=== PATIENT | female | born 1935 | race Caucasian/White ===

== ENCOUNTER 2017-10-18 16:03 | Inpatient (IN) | payer OTHER, MEDICARE ==
--- NOTE | 2017-10-18 16:07 | PDOC ---
Rapid Medical Evaluation Time Seen by Provider: 10/18/17 16:06 Medical Evaluation: 10/18/17 16:06 I have performed a brief in-person evaluation of this patient. The patient presents with a chief complaint of: rectal bleeding x "months", sent by Dr. Gao, "i had bleeding hemorrhoids, but now he thinks it's something" , denies any SOB, palpitations Pertinent physical exam findings: NA I have ordered the following: labs, ekg The patient will proceed to the ED for further evaluation. Discharge Disposition - Diagnosis Rectal bleeding - Referrals - Patient Instructions - Post Discharge Activity
[2017-10-18 16:25] VITALS: BMI 26.3
[2017-10-18 17:01] LABS: BASO % 0.9 % (0-2.0); EOS % 0.1 % (0-4.5); HEMATOCRIT 38.3 % (32.4-45.2); HEMOGLOBIN 13.5 GM/dL (10.7-15.3); LYMPH % 12.2 % (8-40); MCH 33.4 pg (25.7-33.7); MCHC 35.1 g/dl (32.0-36.0); MEAN CELL VOLUME 95.1 fl (80-96); MEAN PLT VOLUME 10.7 fl (7.5-11.1); MONO % 7.7 % (3.8-10.2); NEUT % 79.1 % (42.8-82.8); PLATELET COUNT 199 K/MM3 (134-434); RBC 4.03 M/mm3 (3.60-5.2); RDW 13.3 % (11.6-15.6); WHITE BLOOD COUNT 7.3 K/mm3 (4.0-10.0)
[2017-10-18] MEDS ORDERED: SODIUM CHLORIDE 1,000 ML IV STA (17:20)
[2017-10-18 17:27] LABS: ALBUMIN 3.6 g/dl (3.4-5.0); ANION GAP 8 (8-16); BLOOD UREA NITROGEN 23 mg/dL (7-18); CALCIUM 8.9 mg/dL (8.5-10.1); CHLORIDE 105 mmol/L (98-107); CO2 24 mmol/L (21-32); CREATININE 0.9 mg/dL (0.55-1.02); GLUCOSE,RANDOM 98 mg/dL (74-106); POTASSIUM 3.9 mmol/L (3.5-5.1); SGOT/AST 22 U/L (15-37); SGPT/ALT 16 U/L (12-78); SODIUM 137 mmol/L (136-145)
[2017-10-18 17:31] LABS: ALK PHOS 66 U/L (45-117); BILIRUBIN,TOTAL 0.4 mg/dL (0.2-1.0); TOT PROT 7.3 g/dl (6.4-8.2)
[2017-10-18 17:42] LABS: INR 1.05 (0.82-1.09); PROTHROMBIN TIME (PATIENT) 11.9 SEC (9.98-11.88)
--- NOTE | 2017-10-18 18:18 | PDOC ---
History of Present Illness - History of Present Illness Initial Comments: 10/18/17 18:26 The patient is a 82 year old female, with a significant PMH of hypertension, anxiety, who presents to the emergency department with progressively worsening vaginal bleeding, hematuria, blood per stool for 2 days. The patient states she had been having the bleeding intermittently for 3 months but her symptoms have been constant in the past couple of days. The patient states she has been seen by an outpatient mobile home servicer and GI Dr. Whitmore. However, she states the doctors are unsure of the source of the bleeding. The patient states she had a colonoscopy [address] Carballo where she had a large polyp removed. The patient states she had an appointment with Dr Colby richardson today who advised the patient come to the ED secondary to her symptoms. The patient denies chest pain, shortness of breath, headache and dizziness. Denies fever, chills, nausea, vomit, diarrhea and constipation. Denies dysuria, frequency, urgency. Allergies: Sulfur Past surgical history: Partial hysterectomy. Social history: No reported PCP: Pt. does not have a PMD. <Tanvir Hansen - Last Filed: 10/18/17 18:26> - General History Source: Patient Exam Limitations: No Limitations <Tom Lawson - Last Filed: 10/18/17 18:58> - General Chief Complaint: Rectal Bleed Stated Complaint: WEAKNESS (PCP SENT) Time Seen by Provider: 10/18/17 16:06 Past History <Tanvir Hansen - Last Filed: 10/18/17 18:26> - Past Medical History COPD: No HTN: Yes - Suicide/Smoking/Psychosocial Hx Smoking History: Never smoked Information on smoking cessation initiated: No Hx Alcohol Use: No Drug/Substance Use Hx: No Substance Use Type: None <Tom Lawson - Last Filed: 10/18/17 18:58> - Past Medical History Allergies/Adverse Reactions: Allergies Allergy/AdvReac Type Severity Reaction Status Date / Time Sulfa (Sulfonamide Allergy Verified 10/18/17 16:07 Antibiotics) Home Medications: Ambulatory Orders Alprazolam [Xanax] 0.25 mg PO ONCE PRN 10/18/17 Lisinopril 5 mg PO DAILY 10/18/17 Review of Systems - Review of Systems Comments:: 10/18/17 18:26 GENERAL/CONSTITUTIONAL: No fever or chills. No weakness. HEAD, EYES, EARS, NOSE AND THROAT: No change in vision. No ear pain or discharge. No sore throat. CARDIOVASCULAR: No chest pain or shortness of breath. RESPIRATORY: No cough, wheezing, or hemoptysis. GASTROINTESTINAL: +Blood per rectum. +Hematuria. No nausea, vomiting, diarrhea or constipation. GENITOURINARY: +Vaginal bleeding. No dysuria, frequency, or change in urination. MUSCULOSKELETAL: No joint or muscle swelling or pain. No neck or back pain. SKIN: No rash NEUROLOGIC: No headache, vertigo, loss of consciousness, or change in strength/ sensation. ENDOCRINE: No increased thirst. No abnormal weight change. HEMATOLOGIC/LYMPHATIC: No anemia, easy bleeding, or history of blood clots. ALLERGIC/IMMUNOLOGIC: No hives or skin allergy. <Tanvir Hansen - Last Filed: 10/18/17 18:26> *Physical Exam - Vital Signs Last Vital Signs Temp Pulse Resp BP Pulse Ox 97.4 F L 68 18 103/76 98 10/18/17 16:07 10/18/17 17:43 10/18/17 16:07 10/18/17 16:07 10/18/17 17:43 - Physical Exam Comments: 10/18/17 18:27 GENERAL: Awake, alert, and fully oriented, in no acute distress HEAD: No signs of trauma EYES: PERRLA, EOMI, sclera anicteric, conjunctiva clear ENT: Auricles normal inspection, hearing grossly normal, nares patent. Moist mucosa NECK: Normal ROM, supple. LUNGS: Breath sounds equal, clear to auscultation bilaterally. No wheezes, and no crackles HEART: Regular rate and rhythm, normal S1 and S2, no murmurs, rubs or gallops ABDOMEN: Soft, nontender. No guarding, no rebound. No masses SENIOR COMMUNICATIONS SPECIALIST: +Blood around vagina. RECTAL: +Blood on glove. No hemorrhoids. EXTREMITIES: Normal range of motion, no edema. No clubbing or cyanosis. No cords, erythema, or tenderness NEUROLOGICAL: Cranial nerves II through XII intact. Normal speech, normal gait SKIN: Warm, Dry, normal turgor, no rashes or lesions noted. <Tanvir Hansen - Last Filed: 10/18/17 18:26> - Vital Signs Last Vital Signs Temp Pulse Resp BP Pulse Ox 97.4 F L 68 18 103/76 98 10/18/17 16:07 10/18/17 17:43 10/18/17 16:07 10/18/17 16:07 10/18/17 17:43 <Tom Lawson - Last Filed: 10/18/17 18:58> Heart Score/ECG Review #1 ECG reviewed & interpreted by me at: 18:35 10/18/17 18:56 NSR 81 with 1st degree AV block, no std/judy, QTC 455 msec <Tom Lawson - Last Filed: 10/18/17 18:58> ED Treatment Course - LABORATORY CBC & Chemistry Diagram: 10/18/17 16:35 10/18/17 16:35 - ADDITIONAL ORDERS Additional order review: Laboratory Results 10/18/17 10/18/17 16:35 16:07 Sodium 137 Potassium 3.9 Chloride 105 Carbon Dioxide 24 Anion Gap 8 BUN 23 H Creatinine 0.9 Creat Clearance w eGFR > 60 Random Glucose 98 Calcium 8.9 Total Bilirubin 0.4 AST 22 ALT 16 Alkaline Phosphatase 66 Creatine Kinase 85 Troponin I 0.02 Total Protein 7.3 Albumin 3.6 Stool Occult Blood Positive 10/18/17 16:35 RBC 4.03 MCV 95.1 MCHC 35.1 RDW 13.3 MPV 10.7 Neutrophils % 79.1 Lymphocytes % 12.2 Monocytes % 7.7 Eosinophils % 0.1 Basophils % 0.9 - Medications Given in the ED: ED Medications Discontinued Medications Generic Name Dose Route Start Last Admin Trade Name Freq PRN Reason Stop Dose Admin Sodium Chloride 1,000 mls @ 1,000 mls/hr 10/18/17 17:20 10/18/17 17:28 Normal Saline - IV 10/18/17 18:19 1,000 mls/hr ASDIR STA Administration <Tanvir Hansen - Last Filed: 10/18/17 18:26> - LABORATORY CBC & Chemistry Diagram: 10/18/17 16:35 10/18/17 16:35 - ADDITIONAL ORDERS Additional order review: Laboratory Results 10/18/17 10/18/17 16:35 16:07 Sodium 137 Potassium 3.9 Chloride 105 Carbon Dioxide 24 Anion Gap 8 BUN 23 H Creatinine 0.9 Creat Clearance w eGFR > 60 Random Glucose 98 Calcium 8.9 Total Bilirubin 0.4 AST 22 ALT 16 Alkaline Phosphatase 66 Creatine Kinase 85 Troponin I 0.02 Total Protein 7.3 Albumin 3.6 Stool Occult Blood Positive 10/18/17 16:35 RBC 4.03 MCV 95.1 MCHC 35.1 RDW 13.3 MPV 10.7 Neutrophils % 79.1 Lymphocytes % 12.2 Monocytes % 7.7 Eosinophils % 0.1 Basophils % 0.9 - RADIOLOGY Radiology Studies Ordered: Category Date Time Status ABDOMEN & PELVIS CT WITH CONTR [CT] Stat CT Scan 10/18/17 17:19 Ordered CHEST X-RAY PORTABLE* [RAD] Stat Radiology 10/18/17 17:19 Ordered PELVIC / BLADDER US [US] Stat Ultrasound 10/18/17 17:19 Ordered <Tom Lawson - Last Filed: 10/18/17 18:58> Medical Decision Making - Medical Decision Making 10/18/17 18:11 A portion of this note was documented by scribe services under my direction. I have reviewed the details of the note, within reason, and agree with the documentation with the following case summary and management plan written by me. Patient treated in the ED. Nursing notes are reviewed and incorporated into the medical decision-making. Vital signs reviewed. Peripheral IV access obtained by the nurse, laboratory studies are drawn and sent, reviewed and interpreted by myself. Vital Signs Temp Pulse Resp BP Pulse Ox 97.4 F L 68 18 103/76 98 10/18/17 16:07 10/18/17 17:43 10/18/17 16:07 10/18/17 16:07 10/18/17 17:43 82-year-old female with past medical history of hypertension, anxiety presents with GI bleeding. The patient has had several months of hematuria, blood per stool and vaginal bleeding. It was initially intermittent but in the last several days has been constant. Patient denies any pain with this. Denies fevers or chills or weight loss. No nausea or vomiting. The patient was seen by an outpatient mobile home servicer as well as a activities concierge Dr. Carballo. According to the patient, she reports that both are unclear what the etiology is. Patient received a colonoscopy several weeks ago which several polyps were removed. However, the patient continued to have blood in her stool in the toilet bowl. Patient ultimately had a first-time appointment with general surgeon Dr. Kuldeep Go with directed patient to the ER. It is unclear if the bleeding is primarily urine, vaginal or GI. The patient certainly has javier blood per rectum (but not hemorraging out). But also has questionable vaginal bleeding. The patient has seen several outpatient visits but unclear what this is. Could this be internal hemorrhoids? Or bleedig diverticulosis or cancer? Is this uterine/cervical dysplasia/cancer or hemorrhagic cystitis? Either way, the patient will require an extensive workup including pelvic ultrasound and CT scan of abdomen and pelvis. Given worsening bleeding, pt should be considered for potential admission as well. Dispo per workup. 10/18/17 18:58 CBC, BMP 10/18/17 16:35 10/18/17 16:35 CMP Sodium 137 mmol/L (136-145) 10/18/17 16:35 Potassium 3.9 mmol/L (3.5-5.1) 10/18/17 16:35 Chloride 105 mmol/L (98-107) 10/18/17 16:35 Carbon Dioxide 24 mmol/L (21-32) 10/18/17 16:35 Anion Gap 8 (8-16) 10/18/17 16:35 BUN 23 mg/dL (7-18) H 10/18/17 16:35 Creatinine 0.9 mg/dL (0.55-1.02) 10/18/17 16:35 Creat Clearance w eGFR > 60 (>60) 10/18/17 16:35 Random Glucose 98 mg/dL (74-106) 10/18/17 16:35 Calcium 8.9 mg/dL (8.5-10.1) 10/18/17 16:35 Total Bilirubin 0.4 mg/dL (0.2-1.0) 10/18/17 16:35 AST 22 U/L (15-37) 10/18/17 16:35 ALT 16 U/L (12-78) 10/18/17 16:35 Alkaline Phosphatase 66 U/L (45-117) 10/18/17 16:35 LD Total 240 U/L (84-246) 10/18/17 17:26 Creatine Kinase 85 IU/L (26-192) 10/18/17 16:35 Troponin I 0.02 ng/ml (0.00-0.05) 10/18/17 16:35 Total Protein 7.3 g/dl (6.4-8.2) 10/18/17 16:35 Albumin 3.6 g/dl (3.4-5.0) 10/18/17 16:[address] scan and ultrasound pending. Case signed out to Dr. Paul for further management and disposition. <Tom Lawson - Last Filed: 10/18/17 18:58> *DC/Admit/Observation/Transfer - Attestations Scribe Attestion: 10/18/17 18:29 Documentation prepared by Tanvir Hansen, acting as medical practitioners for Tom Lawson MD. <Tanvir Hansen - Last Filed: 10/18/17 18:26> <Tom Lawson - Last Filed: 10/18/17 18:58> Diagnosis at time of Disposition: Rectal bleeding - Referrals Referrals: Nabil Carballo MD [Primary Care Provider] - - Patient Instructions - Post Discharge Activity
[2017-10-18 18:57] LABS: URINE APPEARANCE SLCLOUDY; URINE BILIRUBIN NEGATIVE (<2.0 mg/dL); URINE COLOR RED; URINE GLUCOSE (UA) NEGATIVE (NEGATIVE); URINE KETONE NEGATIVE (NEGATIVE); URINE NITRITE NEGATIVE (NEGATIVE); URINE UROBILINOGEN NEGATIVE mg/dL (0.2-1.0)
[2017-10-18 19:09] LABS: URINE LEUK ESTERASE 2+ (NEGATIVE); URINE PROTEIN 2+ (NEGATIVE)
[2017-10-18 19:21] LABS: URINE BACTERIA RARE /hpf (NONE SEEN)
--- NOTE | 2017-10-18 21:34 | PDOC ---
*Physical Exam - Vital Signs Last Vital Signs Temp Pulse Resp BP Pulse Ox 97.4 F L 68 18 103/76 98 10/18/17 16:07 10/18/17 17:43 10/18/17 16:07 10/18/17 16:07 10/18/17 17:43 ED Treatment Course - LABORATORY CBC & Chemistry Diagram: 10/18/17 16:35 10/18/17 16:35 - ADDITIONAL ORDERS Additional order review: Laboratory Results 10/18/17 10/18/17 10/18/17 18:44 17:26 17:26 PT with INR INR PTT (Actin FS) Fibrinogen 411.0 Sodium Potassium Chloride Carbon Dioxide Anion Gap BUN Creatinine Creat Clearance w eGFR Random Glucose Calcium Total Bilirubin AST ALT Alkaline Phosphatase LD Total 240 Creatine Kinase Troponin I Total Protein Albumin Urine Color Red Urine Appearance Slcloudy Urine pH 7.0 Ur Specific [place] 1.008 Urine Protein 2+ H Urine Glucose (UA) Negative Urine Ketones Negative Urine Blood 3+ H Urine Nitrite Negative Urine Bilirubin Negative Urine Urobilinogen Negative Ur Leukocyte Esterase 2+ H Urine WBC (Auto) 1595 Urine RBC (Auto) 1005 Urine Bacteria Rare Stool Occult Blood Blood Type Antibody Screen 10/18/17 10/18/17 10/18/17 16:35 16:35 16:35 PT with INR INR PTT (Actin FS) 29.8 Fibrinogen Sodium 137 Potassium 3.9 Chloride 105 Carbon Dioxide 24 Anion Gap 8 BUN 23 H Creatinine 0.9 Creat Clearance w eGFR > 60 Random Glucose 98 Calcium 8.9 Total Bilirubin 0.4 AST 22 ALT 16 Alkaline Phosphatase 66 LD Total Creatine Kinase 85 Troponin I 0.02 Total Protein 7.3 Albumin 3.6 Urine Color Urine Appearance Urine pH Ur Specific [place] Urine Protein Urine Glucose (UA) Urine Ketones Urine Blood Urine Nitrite Urine Bilirubin Urine Urobilinogen Ur Leukocyte Esterase Urine WBC (Auto) Urine RBC (Auto) Urine Bacteria Stool Occult Blood Blood Type O POSITIVE Antibody Screen Negative 10/18/17 10/18/17 16:35 16:07 PT with INR 11.90 H INR 1.05 PTT (Actin FS) Fibrinogen Sodium Potassium Chloride Carbon Dioxide Anion Gap BUN Creatinine Creat Clearance w eGFR Random Glucose Calcium Total Bilirubin AST ALT Alkaline Phosphatase LD Total Creatine Kinase Troponin I Total Protein Albumin Urine Color Urine Appearance Urine pH Ur Specific [place] Urine Protein Urine Glucose (UA) Urine Ketones Urine Blood Urine Nitrite Urine Bilirubin Urine Urobilinogen Ur Leukocyte Esterase Urine WBC (Auto) Urine RBC (Auto) Urine Bacteria Stool Occult Blood Positive Blood Type Antibody Screen 10/18/17 16:35 RBC 4.03 MCV 95.1 MCHC 35.1 RDW 13.3 MPV 10.7 Neutrophils % 79.1 Lymphocytes % 12.2 Monocytes % 7.7 Eosinophils % 0.1 Basophils % 0.9 - Medications Given in the ED: ED Medications Discontinued Medications Generic Name Dose Route Start Last Admin Trade Name Aliyah PRN Reason Stop Dose Admin Sodium Chloride 1,000 mls @ 1,000 mls/hr 10/18/17 17:20 10/18/17 17:28 Normal Saline - IV 10/18/17 18:19 1,000 mls/hr ASDIR STA Administration Medical Decision Making - Medical Decision Making 10/18/17 21:33 This is an 82-year-old female centimeter presently 7 PM. She is pending CT, ultrasound for evaluation of hematuria, rectal bleeding, vaginal bleeding. Plan is for admission. Ultrasound demonstrates: 3.5 cm unilocular right adnexal cyst. CT of the abdomen and pelvis demonstrate: Cholelithiasis, liver, spleen, pancreas, adrenals are normal. Minimal to mild dilatation of the renal collecting system bilaterally, no aneurysm, sigmoid diverticulosis without diverticulitis. Reviewed with hospitalist. Limited their service. Repeat vitals: Heart rate 87 Blood pressure 124/87 Clinical impression: Hematuria, rectal bleeding, initial presentation *DC/Admit/Observation/Transfer Diagnosis at time of Disposition: Rectal bleeding - Discharge Dispostion Condition at time of disposition: Stable Admit: Yes - Referrals Referrals: Nabil Carballo MD [Primary Care Provider] - - Patient Instructions - Post Discharge Activity
--- NOTE | 2017-10-18 22:07 | PN ---
Teaching Attending Note Name of Resident: Phillip Rodríguez ATTENDING PHYSICIAN STATEMENT I saw and evaluated the patient. Chart, data, imaging reviewed. I reviewed the resident's note and discussed the case with the resident. I agree with the resident's findings and plan as documented. SUBJECTIVE: #82yo pleasant woman with diverticulosis, hemorrhoids, and recent polypectomy [address] Carballo, comes in complaining of worsening BRBPR for the past several days. She has had this bleeding for at least 10 months. Denied any peptic ulcer disease, or dyspepsia. She does admit to using advil PM regularly for the past year. SHe was recently seen by OBGYN and deemed to not have Airfield Manager - source of bleeding. Patient seen by surgeon - Dr. Bowman, and encouraged to come to ER. She denied LOC, nausea, or vomiting. No burning with urination, however has seen some blood in urine which may have been mixed in from stool. OBJECTIVE: Temp Pulse Resp BP Pulse Ox 97.4 F L 79 18 151/69 98 10/18/17 16:07 10/18/17 22:40 10/18/17 22:40 10/18/17 22:40 10/18/17 22:40 general- nad, pleasant heent - at , nc neck -supple cv - s1+s2+ RRR chest - cta b/l abdomen -soft, nt, vertical scar s/p hysterectomy ext- no pedal edema Bright red blood from rectum Abnormal Lab Results 10/18/17 10/18/17 10/18/17 16:35 16:35 18:44 PT with INR 11.90 H BUN 23 H Urine Protein 2+ H Urine Blood 3+ H Ur Leukocyte Esterase 2+ H FOBT -positive EKG-nsr Ultrasound demonstrates: 3.5 cm unilocular right adnexal cyst. CT of the abdomen and pelvis demonstrate: Cholelithiasis, liver, spleen, pancreas, adrenals are normal. Minimal to mild dilatation of the renal collecting system bilaterally, no aneurysm, sigmoid diverticulosis without diverticulitis. ASSESSMENT AND PLAN: #82yo woman with GI bleed- may be upper GI as she has been taking NSAIDs - advil , has high BUN although she has no symptoms. May be lower GI from diverticulosis or complication from recent polyectomy. She is otherwise hemodynamically stable, initial tachycardia at presentation has normalized. H,H are stable. Will admit ICU pending GI evaluation. -admit to ICU -protonix drip -IV fluid hydration -trend cbc q 6hrs -avoid NSAIDS and heparin -NPO -zofran PRN if nausea or vomiting -GI consult for EGD/colonoscopy -Urology consult to r/o possible urinary source of bleed -ICDs for DVT ppx
[2017-10-18] MEDS ORDERED: SODIUM CHLORIDE 1,000 ML IV SCH (22:15)
--- NOTE | 2017-10-18 22:20 | HP ---
CHIEF COMPLAINT: active gi bleed PCP: HISTORY OF PRESENT ILLNESS: 82 y/o female with PMH of constipation was sent in by surgeon for GI bleed, haematuria. Patient states that she has Bleeding per rectum from 10 months which was intermittent. She got colonoscopy done 3 weeks ago and polypectomy was done, after that she started bleeding every day, painless, bleeds every time she has bowel movement, changes many pads in a day. Denies loss of weight, change in appetite. Denies pain on defecation, denies epigastric pain, dyspepesia or pain on eating food. Denies pain in abdomen. Denies h/o bleeding disorder or excessive bleeding on getting cuts. Patient also states that she has noticed a active blood coming in her urine ( unable to tell if its urine or blood from rectum getting mixed with urine.) Denies chest pi, palpitations, sob, lightheadidness. Patient also reports increase in frequency of micturation but no burning, no fever, no chills. Patient reports that she i staking aleve for last one year. Patient has also seen licensed practical nurse instructor in last week. As per patinet doctor told her she has no bleeding from vagina. CT angio: shows diverticulosis. ER course was notable for: (1)cbc, cmp, pt/inr (2)Iv fluid (3) Recent Travel: no PAST MEDICAL HISTORY: HTN, anxiety. PAST SURGICAL HISTORY:right knee replcement, ectopic , partial hystrectomy 11 yearrs ago. Social History: Smoking: no Alcohol:no Drugs: no Family History: no h/o cancer Allergies Sulfa (Sulfonamide Antibiotics) Allergy (Verified 10/18/17 16:07) HOME MEDICATIONS: Home Medications Medication Instructions Recorded Alprazolam [Xanax] 0.25 mg PO ONCE PRN 10/18/17 Lisinopril 5 mg PO DAILY 10/18/17 REVIEW OF SYSTEMS CONSTITUTIONAL: Absent: fever, chills, diaphoresis, generalized weakness, malaise, loss of appetite, weight change HEENT: Absent: rhinorrhea, nasal congestion, throat pain, throat swelling, difficulty swallowing, mouth swelling, ear pain, eye pain, visual changes CARDIOVASCULAR: Absent: chest pain, syncope, palpitations, irregular heart rate, lightheadedness , peripheral edema RESPIRATORY: Absent: cough, shortness of breath, hemoptysis GASTROINTESTINAL: as above GENITOURINARY: as above HEMATOLOGIC/IMMUNOLOGIC: Absent: easy bleeding, easy bruising, lymphadenopathy, frequent infections ENDOCRINE: Absent: unexplained weight gain, unexplained weight loss, heat intolerance, cold intolerance PSYCHIATRIC: Absent: depression, suicidal or homicidal ideation, hallucinations. PHYSICAL EXAMINATION Vital Signs - 24 hr 10/18/17 10/18/17 16:07 17:43 Temperature 97.4 F L Pulse Rate 122 H 68 Respiratory 18 Rate Blood Pressure 103/76 O2 Sat by Pulse 100 98 Oximetry (%) GENERAL: Awake, alert, and fully oriented, in no acute distress. HEAD: Normal with no signs of trauma. EYES: Pupils equal, round and reactive to light, extraocular movements intact, sclera anicteric, conjunctiva clear. No lid lag. EARS, NOSE, THROAT: Ears normal, nares patent, oropharynx clear without exudates. Moist mucous membranes. NECK: Normal range of motion, supple without lymphadenopathy, JVD, or masses. LUNGS: Breath sounds equal, clear to auscultation bilaterally. No wheezes, and no crackles. No accessory muscle use. HEART: s1s2 normalNo hepatomegaly or splenomegaly. MUSCULOSKELETAL: Normal range of motion at all joints. No bony deformities or tenderness. UPPER EXTREMITIES: 2+ pulses, warm, well-perfused. No cyanosis. No clubbing. No peripheral edema. LOWER EXTREMITIES:warm, well-perfused. No calf tenderness. No peripheral edema. NEUROLOGICAL: Cranial nerves II-XII intact. Normal speech. PSYCHIATRIC: Cooperative. Good eye contact. Appropriate mood and affect. SKIN: Warm, dry, Laboratory Results - last 24 hr 10/18/17 10/18/17 10/18/17 16:07 16:35 16:35 WBC RBC Hgb Hct MCV MCH MCHC RDW Plt Count MPV Neutrophils % Lymphocytes % Monocytes % Eosinophils % Basophils % PT with INR 11.90 H INR 1.05 PTT (Actin FS) Fibrinogen Sodium 137 Potassium 3.9 Chloride 105 Carbon Dioxide 24 Anion Gap 8 BUN 23 H Creatinine 0.9 Creat Clearance w eGFR > 60 Random Glucose 98 Calcium 8.9 Total Bilirubin 0.4 AST 22 ALT 16 Alkaline Phosphatase 66 LD Total Creatine Kinase 85 Troponin I 0.02 Total Protein 7.3 Albumin 3.6 Urine Color Urine Appearance Urine pH Ur Specific [place] Urine Protein Urine Glucose (UA) Urine Ketones Urine Blood Urine Nitrite Urine Bilirubin Urine Urobilinogen Ur Leukocyte Esterase Urine WBC (Auto) Urine RBC (Auto) Urine Bacteria Stool Occult Blood Positive Blood Type Antibody Screen 10/18/17 10/18/17 10/18/17 16:35 16:35 16:35 WBC 7.3 RBC 4.03 Hgb 13.5 Hct 38.3 MCV 95.1 MCH 33.4 MCHC 35.1 RDW 13.3 Plt Count 199 MPV 10.7 Neutrophils % 79.1 Lymphocytes % 12.2 Monocytes % 7.7 Eosinophils % 0.1 Basophils % 0.9 PT with INR INR PTT (Actin FS) 29.8 Fibrinogen Sodium Potassium Chloride Carbon Dioxide Anion Gap BUN Creatinine Creat Clearance w eGFR Random Glucose Calcium Total Bilirubin AST ALT Alkaline Phosphatase LD Total Creatine Kinase Troponin I Total Protein Albumin Urine Color Urine Appearance Urine pH Ur Specific [place] Urine Protein Urine Glucose (UA) Urine Ketones Urine Blood Urine Nitrite Urine Bilirubin Urine Urobilinogen Ur Leukocyte Esterase Urine WBC (Auto) Urine RBC (Auto) Urine Bacteria Stool Occult Blood Blood Type O POSITIVE Antibody Screen Negative 10/18/17 10/18/17 10/18/17 17:26 17:26 18:44 WBC RBC Hgb Hct MCV MCH MCHC RDW Plt Count MPV Neutrophils % Lymphocytes % Monocytes % Eosinophils % Basophils % PT with INR INR PTT (Actin FS) Fibrinogen 411.0 Sodium Potassium Chloride Carbon Dioxide Anion Gap BUN Creatinine Creat Clearance w eGFR Random Glucose Calcium Total Bilirubin AST ALT Alkaline Phosphatase LD Total 240 Creatine Kinase Troponin I Total Protein Albumin Urine Color Red Urine Appearance Slcloudy Urine pH 7.0 Ur Specific [place] 1.008 Urine Protein 2+ H Urine Glucose (UA) Negative Urine Ketones Negative Urine Blood 3+ H Urine Nitrite Negative Urine Bilirubin Negative Urine Urobilinogen Negative Ur Leukocyte Esterase 2+ H Urine WBC (Auto) 1595 Urine RBC (Auto) 1005 Urine Bacteria Rare Stool Occult Blood Blood Type Antibody Screen ASSESSMENT/PLAN: 82 y/o female with PMH of constipation came in with GI bleed. GI bleed: could be upper gi ( h/o aleve from one year, elevated bun) vs lower GI from diverticulosis, polypectomy site, angiodysplasia. cbc q6h Iv fluid npo protonix drip Gi consult colonscopy done 3week ago: get report from Dr craig office. CT angio; diverticulosis. Monitor vitals monitor intake/output ICU monitoring surgery consult type and screen two iv canula 18 number Haematuria: could be due to contamination of urine vs cystitis ( less likely) vs bladder growth( less likely) monitor monitor intake and output urology consult Right renal cyst: incidental finding, monitor, urology consult HTN: hold BP meds for now anxiety; home meds. fluid: ns 83 ml/hr electrolyte; repeat in am nutrition; npo dvt pro; pt ambulatory gi pro; protonix drip dispo; ICU Visit type - Emergency Visit Emergency Visit: Yes Care time: The patient presented to the Emergency Department on the above date and was hospitalized for further evaluation of their emergent condition. - New Patient This patient is new to me today: Yes Date on this admission: 10/18/17 - Critical Care Critical Care patient: Yes Total Critical Care Time (in minutes): 60 Critical Care Statement: The care of this patient involved high complexity decision making to prevent further life threatening deterioration of the patient 's condition and/or to evaluate & treat vital organ system(s) failure or risk of failure.
[2017-10-18] MEDS ORDERED: PANTOPRAZOLE SODIUM 40 MG VIAL ONE (22:49)
[2017-10-18] MEDS ORDERED: PANTOPRAZOLE SODIUM 80 MG in SODIUM CHLORIDE 100 ML IVPB SCH (23:00)
--- NOTE | 2017-10-18 23:06 | CONSULT ---
Consult - History of Present Illness History of Present Illness: This is an 82 yo woman with HTN with history GIB recently seen as OP(~3 weeks ago) for rectal bleeding and was found to have multiple polyps on C-scope s/p polypectomy. She cont to have continued daily bleeding and was seen by DIE MAKER APPRENTICE who did not find evidence of vaginal bleeding and was subsequently seen in surgical clinic by Dr. Bowman w/ BRBPR seen on exam and advised her to go to the ED for evaluation. In the ED she was noted to have continued BRBPR. Hgb 13.5, Plt: 199 , INR 1.09. Urine with +3 blood, +2 LE and 1595 wbcs but sample was felt to be contaminated by rectal bleeding. CTAP: Sigmoid diverticulosis is noted without CT evidence of acute diverticulitis, also noted to have chronic ILD changes in lower lobes. Her VS are stable: HR 70-80s. BP: 103/76, RR 18 non labored on RA. PPI drip started. Given active bleeding she was transferred to ICU for continued care. - History Source History Provided By: Patient, Medical Record Limitations to Obtaining History: No Limitations - Past Medical History Cardio/Vascular: Yes: HTN Gastrointestinal: Yes: Diverticulosis, GI Bleed Reproductive: Yes: Ectopic Psych: Yes: Anxiety - Past Surgical History Past Surgical History: Yes: Hysterectomy, Joint Replacement (right knee) - Alcohol/Substance Use Hx Alcohol Use: No History of Substance Use: reports: None - Smoking History Smoking history: Never smoked Home Medications - Allergies Allergies/Adverse Reactions: Allergies Allergy/AdvReac Type Severity Reaction Status Date / Time Sulfa (Sulfonamide Allergy Verified 10/18/17 16:07 Antibiotics) - Home Medications Home Medications: Ambulatory Orders Alprazolam [Xanax] 0.25 mg PO ONCE PRN 10/18/17 Lisinopril 5 mg PO DAILY 10/18/17 Family Disease History - Family Disease History Family History: Unremarkable Review of Systems - Review of Systems Cardiovascular: reports: No Symptoms Respiratory: reports: No Symptoms Gastrointestinal: reports: Rectal Bleeding Psychiatric: reports: Anxiety Physical Exam Vital Signs: Vital Signs Temperature 97.4 F L 10/18/17 16:07 Pulse Rate 79 10/18/17 22:40 Respiratory Rate 18 10/18/17 22:40 Blood Pressure 151/69 10/18/17 22:40 O2 Sat by Pulse Oximetry (%) 98 10/18/17 22:40 Eyes: Yes: EOM Intact Cardiovascular: Yes: Regular Rate and Rhythm Respiratory: Yes: CTA Bilaterally Gastrointestinal: Yes: Normal Bowel Sounds, Soft Neurological: Yes: Alert, Oriented Labs: CBC, BMP 10/18/17 16:35 10/18/17 16:35 Imaging - Results Cat Scan: Report Reviewed, Image Reviewed (Colonic diverticulosis without evidence of acute diverticulitis. A 3.5 cm right adnexal cyst is seen without associated soft tissue nodularity or thickened internal septation. This cyst is probably ovarian in origin although the ovary itself is difficult to visualize presumably due to atrophy. DIE MAKER APPRENTICE consultation is suggested in regards to follow-up / management.) Ultrasound: Report Reviewed, Image Reviewed (Status post hysterectomy. A 3.5 cm unilocular right adnexal cyst is noted which is probably ovarian in origin. The ovary itself cannot be definitely visualized. DIE MAKER APPRENTICE consultation is suggested in regards to follow-up/ management.) Problem List - Problems (1) Rectal bleeding Code(s): K62.5 - HEMORRHAGE OF ANUS AND RECTUM Assessment/Plan 82yo woman HTN, GIB in past r/t polyps, diverticular disease seen on CTAP now with BRBPR c/w LGIB: Diverticulosis vs angiodysplasia vs colon cancer vs rectal hemorrhoids. Less likely rapid transit UGIB -Notify GI -Surgery following -consider c- scope vs tagged RBC scan vs IR -PPI drip will likely be able to d/c given no UGIB symptoms and stable HGB is unlikely with a rapid transit UGIB -Obtain adequate IV access. 2 large (18 gauge or larger) bore IVs. -Type and crossmatch blood. -Fluid resuscitate to goal of stabilization of HR and BP with Normal Saline -Transfuse PRBCS to hemoglobin > 7g/dl and platelets >50K. -Consider FFP, vitamin K if INR >1.5 -NPO until after c-scope vs EGD -Check CBC every 4-6 hours -repeat u/a, if positive will start ABX for UTI -SCD for DVT prophylaxis Boerem ACNP Pulm/CCM CCT: 36m
[2017-10-19] MEDS ORDERED: PANTOPRAZOLE SODIUM 160 MG in DEXTROSE 5%-WATER - 290 ML IVPB SCH (01:15)
[2017-10-19 05:49] LABS: BASO % 0.8 % (0-2.0); EOS % 0.8 % (0-4.5); HEMATOCRIT 33.3 % (32.4-45.2); HEMOGLOBIN 11.5 GM/dL (10.7-15.3); LYMPH % 25.8 % (8-40); MCHC 34.6 g/dl (32.0-36.0); MEAN CELL VOLUME 95.2 fl (80-96); MEAN PLT VOLUME 10.5 fl (7.5-11.1); MONO % 11.1 % (3.8-10.2); NEUT % 61.5 % (42.8-82.8); PLATELET COUNT 178 K/MM3 (134-434); RDW 13.8 % (11.6-15.6); WHITE BLOOD COUNT 6.1 K/mm3 (4.0-10.0)
[2017-10-19 06:05] LABS: INR 1.14 (0.82-1.09); PROTHROMBIN TIME (PATIENT) 12.9 SEC (9.98-11.88)
[2017-10-19 06:21] LABS: ANION GAP 9 (8-16); BLOOD UREA NITROGEN 15 mg/dL (7-18); CALCIUM 8.1 mg/dL (8.5-10.1); CHLORIDE 109 mmol/L (98-107); CO2 24 mmol/L (21-32); GLUCOSE,RANDOM 81 mg/dL (74-106); POTASSIUM 3.7 mmol/L (3.5-5.1); SODIUM 142 mmol/L (136-145)
[2017-10-19 06:27] LABS: ALK PHOS 53 U/L (45-117); BILIRUBIN,TOTAL 0.6 mg/dL (0.2-1.0); CREATININE 0.8 mg/dL (0.55-1.02); PHOSPHOROUS 3.1 mg/dL (2.5-4.9); SGOT/AST 16 U/L (15-37); SGPT/ALT 12 U/L (12-78)
--- NOTE | 2017-10-19 07:30 | PN ---
Progress Note (short form) - Note Progress Note: asymptomatic at this time. states she been noticing blood in her urine and possibly stools for the past [address] Carballo for hemrrhoids which were bothering her for the past year and had colonoscopy where he told her the bleeding was not from hemrrhoids. she saw [employer]GING [employer] FINAL FINISHER who also said no source of bleeding. no pain when bleeding. has noted urinary frequency but no other symptoms. occasionaly passes clots in her urine. was taking advil PM as a sleeping aid but stopped 2 months ago. denies Cp, SOB, fever, chills, N/V/C/D, dysuria Current Medications Generic Name Dose Route Start Last Admin Trade Name Freq PRN Reason Stop Dose Admin Chlorhexidine Gluconate 1 applic 10/19/17 22:00 Hibiclens For Decolonization - TP HS JAKUB Sodium Chloride 1,000 mls @ 83 mls/hr 10/18/17 22:15 10/18/17 23:00 Normal Saline - IV 83 mls/hr ASDIR JAKUB Administration Pantoprazole Sodium 160 mg/ 290 mls @ 14.5 mls/hr 10/19/17 01:15 10/19/17 01: 58 Dextrose IVPB 14.5 mls/hr Q20H JAKUB Administration Mupirocin 1 applic 10/19/17 10:00 Bactroban Ointment (For Decolonization) - NS 10/24/17 09:59 BID JAKUB Last Vital Signs Temp Pulse Resp BP Pulse Ox 97.7 F 69 16 105/38 98 10/19/17 06:00 10/19/17 06:00 10/19/17 06:00 10/19/17 06:00 10/19/17 01:00 General NAD CV S1 S2 RRR no murmur/rub/gallop Lungs CTA B/L no wheezing/rales/rhonchi Abdomen soft NT/ND no rebound or guarding Extremities trace pitting edema CBCD WBC 6.1 K/mm3 (4.0-10.0) 10/19/17 05:35 RBC 3.50 M/mm3 (3.60-5.2) L 10/19/17 05:35 Hgb 11.5 GM/dL (10.7-15.3) D 10/19/17 05:35 Hct 33.3 % (32.4-45.2) 10/19/17 05:35 MCV 95.2 fl (80-96) 10/19/17 05:35 MCHC 34.6 g/dl (32.0-36.0) 10/19/17 05:35 RDW 13.8 % (11.6-15.6) 10/19/17 05:35 Plt Count 178 K/MM3 (134-434) 10/19/17 05:35 MPV 10.5 fl (7.5-11.1) 10/19/17 05:35 CMP Sodium 142 mmol/L (136-145) 10/19/17 05:35 Potassium 3.7 mmol/L (3.5-5.1) 10/19/17 05:35 Chloride 109 mmol/L (98-107) H 10/19/17 05:35 Carbon Dioxide 24 mmol/L (21-32) 10/19/17 05:35 Anion Gap 9 (8-16) 10/19/17 05:35 BUN 15 mg/dL (7-18) 10/19/17 05:35 Creatinine 0.8 mg/dL (0.55-1.02) 10/19/17 05:35 Creat Clearance w eGFR > 60 (>60) 10/19/17 05:35 Random Glucose 81 mg/dL (74-106) 10/19/17 05:35 Calcium 8.1 mg/dL (8.5-10.1) L 10/19/17 05:35 Total Bilirubin 0.6 mg/dL (0.2-1.0) D 10/19/17 05:35 AST 16 U/L (15-37) 10/19/17 05:35 ALT 12 U/L (12-78) 10/19/17 05:35 Alkaline Phosphatase 53 U/L (45-117) 10/19/17 05:35 Total Protein 6.0 g/dl (6.4-8.2) L 10/19/17 05:35 Albumin 3.0 g/dl (3.4-5.0) L 10/19/17 05:35 CARDIAC ENZYMES Creatine Kinase 56 IU/L (26-192) 10/19/17 05:35 Troponin I 0.04 ng/ml (0.00-0.05) 10/19/17 05:35 A/P 82yo F with PMH HTN, diverticulosis, hemrrhoids, polypectomy a few weeks ago presented to the ER with BRBPR 1. BRBPR- most likely diverticular bleed vs from polypectomy. low suspicion for upper GI bleed. may benefit from a repeat colonoscopy vs sigmoidoscopy to re- evaluate for source of bleeding. will d/c PPI ggt. cont NPO for now until re- evaluation by GI. NPO, IVF, trend Hgb Q8H. GI and surgery eval 2. Hematuria- possible dehydration and UTI although can not r/o source of bleeding. CT scan not showing any masses or stones. bladder u/s negative for mass. CT showing obstructing B/L UPJ. Urology consulted. will repeat UA. may require cystoscopy 3. UTI- repeat UA if remains + would treat regardless of symptoms. f/u Cx 4. HTN- controlled off medications. cont to hold home medications 5. DVT ppx- SCD 6. MICU monitoring. If repeat Hgb stable this afternoon and no repeat bleeding noted can be transferred to med-surg Visit type - Emergency Visit Emergency Visit: Yes ED Registration Date: 10/18/17 Care time: The patient presented to the Emergency Department on the above date and was hospitalized for further evaluation of their emergent condition. - New Patient This patient is new to me today: Yes Date on this admission: 10/19/17 - Critical Care Critical Care patient: Yes Total Critical Care Time (in minutes): 40 Critical Care Statement: The care of this patient involved high complexity decision making to prevent further life threatening deterioration of the patient 's condition and/or to evaluate & treat vital organ system(s) failure or risk of failure. - Discharge Referral Referred to [facility] No
--- NOTE | 2017-10-19 07:41 | PN ---
Progress Note (short form) - Note Progress Note: Seen and examined in ICU No additional BRBPR Noted hematuria this AM, u/a pending Hgb 13->11.5 Denies: MALDONADO/CP/SOB/n/v Current Medications Chlorhexidine Gluconate (Hibiclens For Decolonization -) 1 applic TP HS JAKUB Sodium Chloride (Normal Saline -) 1,000 mls @ 83 mls/hr IV ASDIR JAKUB Last Admin: 10/18/17 23:00 Dose: 83 mls/hr Pantoprazole Sodium 160 mg/ (Dextrose) 290 mls @ 14.5 mls/hr IVPB Q20H JAKUB Last Admin: 10/19/17 01:58 Dose: 14.5 mls/hr Mupirocin (Bactroban Ointment (For Decolonization) -) 1 applic NS BID JAKUB Stop: 10/24/17 09:59 Vital Signs Period Temp Pulse Resp BP Sys/Rao Pulse Ox Last 24 Hr 97.4 F-97.7 F 52-122 16-18 103-151/38-76 98-100 Intake & Output 10/16/17 10/17/17 10/18/17 10/19/17 23:59 23:59 23:59 23:59 Intake Total 3000 373 Output Total 300 Balance 3000 73 Weight 76.204 kg 74.072 kg Exam: General: awake, alert w/o distress HEENT: PERRL, no JVD, anicteric CV: S1, S2 RRR no m/r/g Pulm: CTA Abd: SNTND +BS Ext: WWP no edema Neuro: grossly intact CBC, BMP 10/19/17 05:35 10/19/17 05:35 82yo woman HTN, GIB in past r/t polyps, diverticular disease seen on CTAP now with BRBPR c/w LGIB: Diverticulosis vs angiodysplasia vs colon cancer vs rectal hemorrhoids. Less likely rapid transit UGIB. Aslo with noted hemautria. Unclear at this point if bleed from both GI and sources -pulmonary fibrotic changes seen on CT, no symptoms, no O2 at home, no h/o SOB or TORRES -Notify GI -Surgery following -resend u/a -urology consulted -consider c- scope vs tagged RBC scan vs IR -d/c PPI drip no UGIB symptoms and stable HGB is unlikely with a rapid transit UGIB -Obtain adequate IV access. 2 large (18 gauge or larger) bore IVs. -Type and crossmatch blood. -Fluid resuscitate to goal of stabilization of HR and BP with Normal Saline -Transfuse PRBCS to hemoglobin > 7g/dl and platelets >50K. -Consider FFP, vitamin K if INR >1.5 -NPO until after c-scope vs EGD -Check CBC every 6 hours -repeat u/a, if positive will start ABX for UTI -SCD for DVT prophylaxis [facility] Pulm/CCM CCT: 36m Problem List - Problems (1) Rectal bleeding Code(s): K62.5 - HEMORRHAGE OF ANUS AND RECTUM
[2017-10-19] MEDS ORDERED: ZOLPIDEM TARTRATE 5 MG TABLET PO PRN ×2 (08:12→18:54)
[2017-10-19 09:50] LABS: URINE APPEARANCE CLEAR; URINE BILIRUBIN NEGATIVE (<2.0 mg/dL); URINE COLOR STRAW; URINE GLUCOSE (UA) NEGATIVE (NEGATIVE); URINE KETONE NEGATIVE (NEGATIVE); URINE LEUK ESTERASE NEGATIVE (NEGATIVE); URINE NITRITE NEGATIVE (NEGATIVE); URINE PROTEIN NEGATIVE (NEGATIVE); URINE UROBILINOGEN NEGATIVE mg/dL (0.2-1.0)
--- NOTE | 2017-10-19 09:52 | EKG ---
Test Reason : Blood Pressure : / mmHG Vent. Rate : 081 BPM Atrial Rate : 081 BPM P-R Int : 252 ms QRS Dur : 066 ms QT Int : 392 ms P-R-T Axes : 074 028 049 degrees QTc Int : 455 ms POOR DATA QUALITY, INTERPRETATION MAY BE ADVERSELY AFFECTED SINUS RHYTHM WITH SINUS ARRHYTHMIA WITH 1ST DEGREE A-V BLOCK OTHERWISE NORMAL ECG NO PREVIOUS ECGS AVAILABLE Confirmed by ROSA ELENA PLUNKETT, JACINTA ([id number]) on 10/19/2017 9:51:25 AM Referred By: Confirmed By:JACINTA CUBA MD
[2017-10-19 09:53] LABS: URINE MUCUS RARE
[2017-10-19] MEDS ORDERED: PANTOPRAZOLE SODIUM 40 MG VIAL IVPUSH SCH (10:00)
[2017-10-19] MEDS ORDERED: MUPIROCIN 2% TOPICAL OINTMENT FOR DECOLONIZATION NS SCH (10:00)
[2017-10-19 10:28] LABS: BASO % 0.8 % (0-2.0); EOS % 0.7 % (0-4.5); HEMOGLOBIN 11.6 GM/dL (10.7-15.3); LYMPH % 21.6 % (8-40); MCH 32.8 pg (25.7-33.7); MCHC 34.1 g/dl (32.0-36.0); MEAN CELL VOLUME 96.1 fl (80-96); MEAN PLT VOLUME 10.2 fl (7.5-11.1); MONO % 10.4 % (3.8-10.2); NEUT % 66.5 % (42.8-82.8); PLATELET COUNT 169 K/MM3 (134-434); RBC 3.54 M/mm3 (3.60-5.2); RDW 13.6 % (11.6-15.6); WHITE BLOOD COUNT 5.6 K/mm3 (4.0-10.0)
[2017-10-19 18:15] LABS: HEMATOCRIT 34.3 % (32.4-45.2); HEMOGLOBIN 11.6 GM/dL (10.7-15.3); MCH 32.4 pg (25.7-33.7); MCHC 33.8 g/dl (32.0-36.0); MEAN CELL VOLUME 96.1 fl (80-96); MEAN PLT VOLUME 10.6 fl (7.5-11.1); PLATELET COUNT 167 K/MM3 (134-434); RBC 3.57 M/mm3 (3.60-5.2); RDW 13.6 % (11.6-15.6); WHITE BLOOD COUNT 5.6 K/mm3 (4.0-10.0)
[2017-10-19] MEDS ORDERED: SODIUM CHLORIDE 1,000 ML IV SCH (18:54)
[2017-10-19] MEDS ORDERED: CHLORHEXIDINE GLUCONATE 4% CLEANSER FOR DECOLONIZATION TP SCH (22:00)
[2017-10-20 06:50] LABS: HEMATOCRIT 34.3 % (32.4-45.2); HEMOGLOBIN 11.6 GM/dL (10.7-15.3); MCH 32.4 pg (25.7-33.7); MCHC 33.8 g/dl (32.0-36.0); MEAN CELL VOLUME 95.7 fl (80-96); MEAN PLT VOLUME 10.2 fl (7.5-11.1); PLATELET COUNT 155 K/MM3 (134-434); RBC 3.58 M/mm3 (3.60-5.2); RDW 13.5 % (11.6-15.6); WHITE BLOOD COUNT 6.3 K/mm3 (4.0-10.0)
[2017-10-20 07:09] LABS: ANION GAP 5 (8-16); BLOOD UREA NITROGEN 17 mg/dL (7-18); CHLORIDE 110 mmol/L (98-107); CO2 27 mmol/L (21-32); CREATININE 0.9 mg/dL (0.55-1.02); GLUCOSE,RANDOM 91 mg/dL (74-106); MAGNESIUM 1.8 mg/dL (1.8-2.4); POTASSIUM 3.8 mmol/L (3.5-5.1); SODIUM 142 mmol/L (136-145)
--- NOTE | 2017-10-20 08:28 | PN ---
Physical Exam: SUBJECTIVE: Patient seen and examined in AM. c/o hemorrhoid itching and burning ; no n/v/diarrhea, abdominal pain; Denies chest pain, sob, urinary symptoms; Overnight 1xepisode of BRBPR w/ no BM since admission/+Flatus. Tolerating diet. OBJECTIVE: Vital Signs Period Temp Pulse Resp BP Sys/Rao Pulse Ox Last 24 Hr 97.4 F-98.6 F 52-95 16-18 111-146/42-80 95-95 General: aaox3, nad HEENT: no conjuctival palor, sclera anicteric Heart: RRR, normal s1/s2, no m/r/g Lungs: CTAB Abd: soft, ntnd Ext: 2+DP, wwp, no edema, chronic venous stasis changes B/L CBC, BMP 10/20/17 06:35 10/20/17 06:35 Hepatic Panel Total Bilirubin 0.6 mg/dL (0.2-1.0) D 10/19/17 05:35 AST 16 U/L (15-37) 10/19/17 05:35 ALT 12 U/L (12-78) 10/19/17 05:35 Alkaline Phosphatase 53 U/L (45-117) 10/19/17 05:35 Albumin 3.0 g/dl (3.4-5.0) L 10/19/17 05:35 Mg - 1.8 Active Medications Benzocaine (Americaine Ointment -) 1 applic TN PRN PRN PRN Reason: HEMORRHOIDS Docusate Sodium (Colace -) 100 mg PO DAILY [facility] Last Admin: 10/20/17 13:48 Dose: 100 mg Lisinopril (Prinivil) 5 mg PO DAILY [facility] Last Admin: 10/20/17 10:51 Dose: 5 mg Melatonin (Melatonin) 5 mg PO HS PRN PRN Reason: INSOMNIA Zolpidem Tartrate (Ambien -) 5 mg PO HS PRN PRN Reason: INSOMNIA Last Admin: 10/19/17 22:14 Dose: 5 mg ASSESSMENT/PLAN: 82yo woman with PMH of HTN, hemorrhoids, diverticulosis, recent colon polypectomy who sent from surgeon's office (Dr. Bowman) with PRBPR. #BRBPR, ddx hemorrhoids, diverticular bleed, s/p polypectomy -Dr. Carballo (GI) and Dr. Bowman (surgery) consulted, awaiting final recommendations -Advance diet to [place] for possible procedure tomorrow -Trend H&H, currently stable. If another BRBPR will repeat CBC in PM otherwise just daily AM CBC -Added Colace 100mg QD PRN #hemorrhoids -Benzocaine for symptomatic relief #hematuria, repeat UA 10/19 was negative for blood (no RBCs detected); pt is currently asymptomatic with no s/s infection -Monitor for s/s infection -Urology as OP for minimal to mild UPJ obstruction B/L #HTN - will restart home lisinopril #Insomnia - Ambien PRN #FEN PO intake Mg repleted Clear diet #DVT PPX - SCD's; no anticoagulation due to bleeding #DISPO: m/s FULL code d/w Dr. Tierra Avilez MD PGY1 - Internal Medicine Visit type - Emergency Visit Emergency Visit: No - New Patient This patient is new to me today: Yes Date on this admission: 10/20/17 - Critical Care Critical Care patient: No
[2017-10-20] MEDS ORDERED: MAGNESIUM 1GM/D5W 100ML - 100 ML IVPB IVPB ONE (08:30)
[2017-10-20] MEDS: LISINOPRIL 5 MG TABLET (FP) PO SCH (10:51)
[2017-10-20] MEDS ORDERED: BENZOCAINE 28 GM HEMORRHOIDAL OINTMENT PR PRN (11:08)
--- NOTE | 2017-10-20 11:22 | PN ---
Teaching Attending Note Name of Resident: Maria Antonia Avilez ATTENDING PHYSICIAN STATEMENT I saw and evaluated the patient. I reviewed the resident's note and discussed the case with the resident. I agree with the resident's findings and plan as documented. SUBJECTIVE:had episode in the evening where she had copious amount of BRBPR. This AM had small drop of blood noted in the toilet and no other episodes of bleeding. tolerating diet. no BM since arrival to the ER. denies CP, SOB, fever , chills, N/V/ OBJECTIVE: Last Vital Signs Temp Pulse Resp BP Pulse Ox 98.1 F 91 H 17 141/80 95 10/20/17 05:39 10/20/17 05:39 10/20/17 05:39 10/20/17 05:39 10/19/17 20:27 General NAD Abdomen soft NT/ND ASSESSMENT AND PLAN: 82yo F with PMH HTN, diverticulosis, hemrrhoids, polypectomy a few weeks ago presented to the ER with BRBPR 1. BRBPR- most likely diverticular bleed vs from polypectomy. low suspicion for upper GI bleed. intermittent bleeding. will need repeat Colonoscopy vs sigmoidoscopy. unlikley source as repeat UA was negative for blood. Hgb has remained stable. will placed on clear liquid diet in the anticpation of procedure may be tomorrow or if pt has copious amounts of bleeding. will start stool softener but will not laxative to worsen any bleeding. can trend Hgb daily unless bleeding is noted. awaiting GI, and surgery eval. 2. Hematuria- possible dehydration and UTI although can not r/o source of bleeding. repeat UA is negative for bleeding. no signs of infection. can f/u wtih urology as outoatient for obstructing B/L UPJ seen on imaging. 3. UTI-false positive. repeat Negative. no symptoms. no indication for treating. 4. HTN- above goal. will restart home medications. 5. DVT ppx- SCD
--- NOTE | 2017-10-20 13:37 | CONSULT ---
Consult Consult Specialty:: Surgery Reason for Consultation:: Rectal bleeding - History of Present Illness Chief Complaint: Rectal bleeding History of Present Illness: 82 y.o. female seen at my office on 10/18/17 for persistent rectal bleeding. Had colonoscopy about 2 weeks ago with findings of cecal adenoma, diverticulosis, and hemorrhoids. Was seen by [employer] to r/o vaginal bleeding. Was eventually sent to ED for further evaluation of persistent rectal bleeding. CTangiogram of the abdomen and pelvis failed to show source of hemorrhage indicating slow rate of hemorrhage. Patient continues to have rectal bleeding but now intermittent with stable H/H. Denies abdominal pain, and has not passed stool for 3 days. - Past Medical History Cardio/Vascular: Yes: HTN Gastrointestinal: Yes: Diverticulosis, GI Bleed Renal/: Yes: Hematuria Psych: Yes: Anxiety - Past Surgical History Past Surgical History: Yes: Hysterectomy, Joint Replacement (right knee) - Alcohol/Substance Use Hx Alcohol Use: No History of Substance Use: reports: None - Smoking History Smoking history: Never smoked Home Medications - Allergies Allergies/Adverse Reactions: Allergies Allergy/AdvReac Type Severity Reaction Status Date / Time Sulfa (Sulfonamide Allergy Verified 10/18/17 16:07 Antibiotics) - Home Medications Home Medications: Ambulatory Orders Alprazolam [Xanax] 0.25 mg PO ONCE PRN 10/18/17 Lisinopril 5 mg PO DAILY 10/18/17 Review of Systems - Review of Systems Constitutional: reports: Other (Anxious) Eyes: reports: No Symptoms Neck: reports: No Symptoms Cardiovascular: reports: No Symptoms Gastrointestinal: reports: No Symptoms, Rectal Bleeding Genitourinary: reports: No Symptoms Musculoskeletal: reports: No Symptoms Physical Exam Vital Signs: Vital Signs Temperature 98.1 F 10/20/17 05:39 Pulse Rate 72 10/20/17 10:00 Respiratory Rate 18 10/20/17 10:00 Blood Pressure 160/64 10/20/17 10:00 O2 Sat by Pulse Oximetry (%) 98 10/20/17 09:00 Constitutional: Yes: Well Nourished Eyes: Yes: Conjunctiva Clear HENT: Yes: Normocephalic Neck: Yes: Supple Cardiovascular: Yes: Regular Rate and Rhythm Respiratory: Yes: CTA Bilaterally Gastrointestinal: Yes: Soft ...Rectal Exam: Yes: Other (friable anal mass bet 11:00 and 1:00 below dentate line with mild pain and stenosis,blood noted to gush upon withdrawing the examining digit) Renal/: Yes: Vaginal Bleeding (none noted) Extremities: Yes: WNL Psychiatric: Yes: Alert, Oriented Labs: CBC, BMP 10/20/17 06:35 10/20/17 06:35 Imaging - Results Cat Scan: Report Reviewed, Image Reviewed Problem List - Problems (1) Rectal bleeding Assessment/Plan: GI F/U: discussed patient's case with Dr. Carballo. Await for his evaluation. May need bleeding scan and eventual anal mass biopsy pending GI evaluation. Will follow. Code(s): K62.5 - HEMORRHAGE OF ANUS AND RECTUM
[2017-10-20] MEDS: DOCUSATE SODIUM 100 MG CAPSULE (FP) PO SCH (13:48)
--- NOTE | 2017-10-20 14:52 | CON.GI ---
Consult Consult Specialty:: GI Referred by:: Dr Mayorga Reason for Consultation:: rectal bleeding - History of Present Illness History of Present Illness: 82 y/o female underwent colonoscopy 08/2017. She was noted to have a large 3.5cm polyp in the proximal ascending colon which underwent piecemeal polypectomy and endoclip application for wound closure . On rectal examination she had prolapsed internal hemorrhoid. She was admitted with recurrent rectal bleeding . Since admission minimal rectal bleeding continued with stable Hemoglobin.Dr. Bowman felt a recto anal mass. - Past Medical History Cardio/Vascular: Yes: HTN Gastrointestinal: Yes: Diverticulosis, GI Bleed Renal/: Yes: Hematuria Psych: Yes: Anxiety - Past Surgical History Past Surgical History: Yes: Hysterectomy, Joint Replacement (right knee) - Alcohol/Substance Use Hx Alcohol Use: No History of Substance Use: reports: None - Smoking History Smoking history: Never smoked Home Medications - Allergies Allergies/Adverse Reactions: Allergies Allergy/AdvReac Type Severity Reaction Status Date / Time Sulfa (Sulfonamide Allergy Verified 10/18/17 16:07 Antibiotics) - Home Medications Home Medications: Ambulatory Orders Alprazolam [Xanax] 0.25 mg PO ONCE PRN 10/18/17 Lisinopril 5 mg PO DAILY 10/18/17 Review of Systems - Review of Systems Constitutional: denies: Fever, Night Sweats Eyes: denies: Photophobia Neck: denies: Decreased ROM Cardiovascular: denies: Chest Pain Respiratory: denies: Cough Gastrointestinal: reports: Rectal Bleeding. denies: Abdominal Pain, Bloating, Constipation, Diarrhea, Dysphagia, Indigestion Genitourinary: denies: Burning Physical Exam-GI Vital Signs: Vital Signs Temperature 98.3 F 10/20/17 14:37 Pulse Rate 80 10/20/17 14:00 Respiratory Rate 18 10/20/17 14:00 Blood Pressure 124/60 10/20/17 14:00 O2 Sat by Pulse Oximetry (%) 98 10/20/17 09:00 Constitutional: Yes: No Distress Eyes: No: Conjunctiva Clear HENT: No: Atraumatic Neck: No: Supple Cardiovascular: No: Regular Rate and Rhythm Respiratory: No: CTA Bilaterally ...Palpate: Yes: Soft. No: Firm/Rigid, Guarding, Hepatomegaly, Pulsatile Mass, Splenomegaly, Tenderness Labs: CBC, BMP 10/20/17 06:35 10/20/17 06:35 INR, PTT INR 1.14 (0.82-1.09) 10/19/17 05:35 Fibrinogen 411.0 mg/dL (238-498) 10/18/17 17:26 Problem List - Problems (1) Rectal bleeding Assessment/Plan: most likely secondary to prolapsed internal hemorrhoid R> will need surgical repair will discuss with Dr Bowman case discussed with Dr Mayorga Code(s): K62.5 - HEMORRHAGE OF ANUS AND RECTUM
[2017-10-20] MEDS ORDERED: MELATONIN 5 MG TABLETS PO PRN (17:33)
[2017-10-21 07:09] LABS: HEMATOCRIT 34.1 % (32.4-45.2); HEMOGLOBIN 11.7 GM/dL (10.7-15.3); MCH 32.8 pg (25.7-33.7); MCHC 34.4 g/dl (32.0-36.0); MEAN CELL VOLUME 95.4 fl (80-96); MEAN PLT VOLUME 10.8 fl (7.5-11.1); PLATELET COUNT 161 K/MM3 (134-434); RBC 3.58 M/mm3 (3.60-5.2); RDW 13.3 % (11.6-15.6); WHITE BLOOD COUNT 6.5 K/mm3 (4.0-10.0)
[2017-10-21] MEDS ORDERED: LACTATED RINGERS SOLUTION 1,000 ML IV SCH ×4 (07:15→19:31)
[2017-10-21 07:27] LABS: ANION GAP 5 (8-16); BLOOD UREA NITROGEN 15 mg/dL (7-18); CHLORIDE 108 mmol/L (98-107); CO2 28 mmol/L (21-32); CREATININE 0.8 mg/dL (0.55-1.02); GLUCOSE,RANDOM 94 mg/dL (74-106); POTASSIUM 3.9 mmol/L (3.5-5.1); SODIUM 141 mmol/L (136-145)
[2017-10-21 07:47] LABS: INR 1.16 (0.82-1.09); PROTHROMBIN TIME (PATIENT) 13.1 SEC (9.98-11.88)
--- NOTE | 2017-10-21 08:52 | PN ---
Physical Exam: SUBJECTIVE: Patient seen and examined. BRBPR last night and this AM when using toilet to urinate; 1x small BM this AM; Denies any urinary symptoms. Tolerated Regular diet yesterday; NPO after midnight for procedure by Dr. Bowman today. OBJECTIVE: Vital Signs Period Temp Pulse Resp BP Sys/Rao Pulse Ox Last 24 Hr 97.9 F-98.3 F 72-90 14-20 121-160/54-70 98-98 General: aaox3, nad HEENT: no conjuctival palor, sclera anicteric Heart: RRR, normal s1/s2, no m/r/g Lungs: CTAB Abd: soft, ntnd Ext: 2+DP, wwp, no edema, chronic venous stasis changes B/L Laboratory Results - last 24 hr 10/21/17 10/21/17 10/21/17 05:50 05:50 05:50 WBC 6.5 RBC 3.58 L Hgb 11.7 Hct 34.1 MCV 95.4 MCH 32.8 MCHC 34.4 RDW 13.3 Plt Count 161 MPV 10.8 PT with INR 13.10 H INR 1.16 H Sodium 141 Potassium 3.9 Chloride 108 H Carbon Dioxide 28 Anion Gap 5 L BUN 15 Creatinine 0.8 Random Glucose 94 Calcium 8.0 L Magnesium 2.0 Active Medications Generic Name Dose Route Start Last Admin Trade Name Freq PRN Reason Stop Dose Admin Benzocaine 1 applic 10/20/17 11:08 10/20/17 18:40 Americaine Ointment - [place] 1 applic PRN PRN Administration HEMORRHOIDS Docusate Sodium 100 mg 10/20/17 10:45 10/20/17 13:48 Colace - PO 100 mg DAILY JAKUB Administration Lactated Ringer's 1,000 mls @ 42 mls/hr 10/21/17 07:15 10/21/17 07:47 Lactated Ringers Solution IV 42 mls/hr ASDIR JAKUB Administration Lisinopril 5 mg 10/20/17 10:00 10/20/17 10:51 Prinivil PO 5 mg DAILY JAKUB Administration Melatonin 5 mg 10/20/17 17:33 10/20/17 21:57 Melatonin PO 5 mg HS PRN Administration INSOMNIA Zolpidem Tartrate 5 mg 10/19/17 18:54 10/19/17 22:14 Ambien - PO 5 mg HS PRN Administration INSOMNIA ASSESSMENT/PLAN: 82yo woman with PMH of HTN, hemorrhoids, diverticulosis, recent colon polypectomy who sent from surgeon's office (Dr. Bowman) with PRBPR. #BRBPR, likely due to prolapsed hemorrhoid, cecal polyp removed by Dr. Carballo -Dr. Carballo (GI) and Dr. Bowman (surgery) consulted; Dr. 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 Tierra Avilez MD PGY1 - Internal Medicine Visit type - Emergency Visit Emergency Visit: No - New Patient This patient is new to me today: No - Critical Care Critical Care patient: No
[2017-10-21] MEDS: DOCUSATE SODIUM 100 MG CAPSULE (FP) PO SCH ×2 (10:48→19:31)
[2017-10-21] MEDS: LISINOPRIL 5 MG TABLET (FP) PO SCH (10:48)
--- NOTE | 2017-10-21 11:56 | PN ---
Teaching Attending Note Name of Resident: Maria Antonia Avilez ATTENDING PHYSICIAN STATEMENT I saw and evaluated the patient. I reviewed the resident's note and discussed the case with the resident. I agree with the resident's findings and plan as documented. SUBJECTIVE:had 2 episodes of BRBPR when defecating. no associated abdominal pain. denies Cp, SOB< fever, chills, N/V/C/D OBJECTIVE: Last Vital Signs Temp Pulse Resp BP Pulse Ox 98.0 F 60 20 114/52 96 10/21/17 09:00 10/21/17 09:00 10/21/17 09:00 10/21/17 09:00 10/21/17 09:00 General NAD Abdomen soft NT/ND ASSESSMENT AND PLAN: 82yo F with PMH HTN, diverticulosis, hemrrhoids, polypectomy a few weeks ago presented to the ER with BRBPR 1. BRBPR- due to prolapsed hemorrhoid that was seen on recent colonoscopy. NPO for hemorrhoidectomy today. Hgb has remained stable during hospital course. F/u GI and surgery recommendations. 2. Hematuria- possible dehydration and UTI although can not r/o source of bleeding. repeat UA is negative for bleeding. no signs of infection. can f/u wtih urology as outoatient for obstructing B/L UPJ seen on imaging. 3. UTI-false positive. repeat Negative. no symptoms. no indication for treating. 4. HTN- controlled. cont home meds 5. DVT ppx- SCD 6. possible d/c later today following procedure if no complications
[2017-10-21] MEDS ORDERED: BUPIVACAINE 0.75% IN DEXTROSE/PF 2ML AMPULE NR ONE (18:21)
[2017-10-21] MEDS ORDERED: ceFAZolin SODIUM 1 GM VIAL IVPB ONE (18:29)
[2017-10-21] MEDS ORDERED: MIDAZOLAM HCL 2 MG/2 ML SINGLE DOSE VIAL ONE (18:30)
[2017-10-21] MEDS ORDERED: LIDOCAINE 1%/EPI 1:100000 (20 ML MULTI DOSE VIAL) IJ ONE (18:45)
[2017-10-21] MEDS ORDERED: ESMOLOL HCL 100,000 MCG/10 ML VIAL ONE (19:08)
[2017-10-21] MEDS ORDERED: oxyCODONE HCL 5 MG TABLET PO PRN ×2 (19:21→19:31)
[2017-10-21] MEDS ORDERED: ONDANSETRON 4 MG/2 ML VIAL IVPUSH PRN ×2 (19:21→19:31)
[2017-10-21] MEDS ORDERED: PROMETHAZINE HCL 25 MG/1 ML VIAL IVPUSH PRN ×2 (19:21→19:31)
--- NOTE | 2017-10-21 19:27 | OP ---
Operative Note - Note: Operative Date: 10/21/17 (recommend ONCOLOGY AND RADIATION ONCOLOGY CONSULT PRIOR TO DISCHARGE) Pre-Operative Diagnosis: rectal bleeding Operation: Exam under anesthesia, proctosigmoidoscopy, anoscopy, anal mass biopsy Findings: 3 cm ulcerated and friable anterior anal mass extending from 10:00 to 3:00 of anal circumference Post-Operative Diagnosis: Other (anal mass) Surgeon: Kuldeep Bowman Anesthesia: Spinal Specimens Removed: anal mass fragments Estimated Blood Loss (mls): 10 Operative Report Dictated: Yes
[2017-10-21] MEDS ORDERED: MELATONIN 5 MG TABLETS PO PRN (19:31)
[2017-10-21] MEDS ORDERED: ZOLPIDEM TARTRATE 5 MG TABLET PO PRN (19:31)
[2017-10-21] MEDS ORDERED: BENZOCAINE 28 GM HEMORRHOIDAL OINTMENT PR PRN (19:31)
--- NOTE | 2017-10-21 20:44 | OP ---
DATE OF OPERATION: 10/21/2017 PROCEDURE: Examination under anesthesia, proctosigmoidoscopy, anoscopy, and anal mass biopsies. PREOPERATIVE DIAGNOSES: Rectal bleeding, anal mass; rule out hemorrhoids. POSTOPERATIVE DIAGNOSIS: Anal mass. SURGEON: Kuldeep Bowman MD ANESTHESIA: Spinal. FINDINGS AND PROCEDURE: This is an 82-year-old female who presents with etla-olxp-7-month history of intermittent rectal bleeding consisting of dark-red blood, occasionally becoming bright red on defecation. Patient underwent a colonoscopy 3-4 weeks ago which showed findings of diverticulosis, a large tubulovillous adenoma of the cecum and internal hemorrhoids. Patient then post colonoscopy had intermittent rectal bleeding, and the past few days, bleeding has become persistent, with spontaneous bleeding without defecation. On physical exam, patient had dark-red blood oozing out of the anal canal and a 3 x 1 cm anal papilla anteriorly from 11 o'clock to 2 o'clock position. A rectal exam in the office was inadequate due to patient's pain. Patient was then sent to the emergency department at [facility] where she was admitted for the persistent rectal bleeding. A CT angiogram was negative for active bleeding. Monitoring of hemoglobin and hematocrit was done, and both were noted to be stable. A repeat rectal exam in the hospital now revealed a hard mass at the anterior circumference of the anus, and there was some gush of blood after removing the surgeon's examining finger. After consultation with GI, it was decided upon to schedule the patient for exam under anesthesia and take a good look at the anorectal area. Consent was obtained after discussing the risks, benefits, and alternatives to the procedure. Patient was brought to the operating room and placed in sitting position. Spinal anesthesia was administered. Patient was then placed in lithotomy position. The perineum was prepped and draped in usual sterile fashion. Ten mL of lidocaine 1% with epinephrine was injected perianally to minimize bleeding and for postop analgesia. A rectal exam this time revealed a hard, friable mass of the anterior circumference of the rectum, and using the lighted anal retractor, the mass was visualized and was noted to extend about 3 cm from the anal verge and extending from 10 o'clock to 3 o'clock position. Multiple fragments of the mass were taken for histopathologic diagnosis. The mass was noted to be friable and ulcerated, beginning to invade the posterior vaginal wall. However, the posterior vaginal mucosa was noted to be intact. A proctosigmoidoscopy was then performed up to 20 cm from the anal verge and was noted to be unremarkable. No active bleeding was detected. The anal mass was again inspected and was noted to be free of brisk bleeding. However, the area was noted to be oozing from the ulcerated mass. The bleeders were cauterized, and Surgicel packing was applied. No internal hemorrhoids were noted. Patient was then placed back in supine position and transferred to the postanesthesia care unit in satisfactory condition. Estimated blood loss was about 10 mL. Wound class contaminated. The patient received a gram of Ancef prior to the start of the procedure. Ita [id number] MTDD
--- NOTE | 2017-10-22 07:45 | PN ---
Physical Exam: 24H Events: yesterday - anoscopy/proctosigmoidoscopy identified 3cm ulcerated rectal mass and biopsies taken by Dr. Bowman; Heme/Onc and Rad Onc consulte O/N: no events AM: 1xSM BM SUBJECTIVE: Patient seen and examined. Reports small hard stool this morning, no blood; continues to see blood in toilet after urinating. No fever, chills, n/ v, abdominal pain. Patient tolerating diet. OBJECTIVE: Vital Signs Period Temp Pulse Resp BP Sys/Rao Pulse Ox Last 24 Hr 97.7 F-98.2 F 60-106 16-20 108-144/49-90 94-98 General: aaox3, nad HEENT: no conjuctival palor, sclera anicteric Heart: RRR, normal s1/s2, no m/r/g Lungs: CTAB Abd: soft, ntnd Ext: 2+DP, wwp, no edema, chronic venous stasis changes B/L CBC, BMP 10/22/17 07:05 10/22/17 07:05 Hepatic Panel Total Bilirubin 0.5 mg/dL (0.2-1.0) 10/22/17 07:05 AST 14 U/L (15-37) L 10/22/17 07:05 ALT 10 U/L (12-78) L 10/22/17 07:05 Alkaline Phosphatase 53 U/L (45-117) 10/22/17 07:05 Albumin 2.7 g/dl (3.4-5.0) L 10/22/17 07:05 Active Medications Benzocaine (Americaine Ointment -) 1 applic MO PRN PRN PRN Reason: HEMORRHOIDS Docusate Sodium (Colace -) 100 mg PO DAILY [facility] Last Admin: 10/22/17 10:54 Dose: 100 mg Lisinopril (Prinivil) 5 mg PO DAILY [facility] Last Admin: 10/22/17 10:54 Dose: 5 mg Melatonin (Melatonin) 5 mg PO HS PRN PRN Reason: INSOMNIA Ondansetron HCl (Zofran Injection) 4 mg IVPUSH Q6H PRN PRN Reason: NAUSEA AND/OR VOMITING Oxycodone HCl (Roxicodone -) 5 mg PO Q4H PRN PRN Reason: PAIN LEVEL 1-5 Zolpidem Tartrate (Ambien -) 5 mg PO HS PRN PRN Reason: INSOMNIA ASSESSMENT/PLAN: 82yo woman with PMH of HTN, hemorrhoids, diverticulosis, recent colon polypectomy who sent from surgeon's office (Dr. Bowman) with PRBPR. #anal mass, biopsies taken, high suspicion for malignancy, 08/2017 pt had c- scope + 3.5cm polpectomy in proximal ascending colon -Heme/Onc and Rad Onc consulted -Urology consulted for #hematuria, unclear if contamination from anal bleeding vs possible fistula obstruction from anal neoplasm -Contacted Dr. Rice's office to assess -Renal U/S for further assessment of UPJ obstruction b/l -F/U repeat UA with specimen collected via straight cath #hemorrhoids -Benzocaine for symptomatic relief #HTN - c/w home lisinopril #Insomnia - Ambien PRN #FEN PO intake lytes wnl Regular diet + Ensure Enlive Vanilla #DVT PPX - SCD's; anticoagulation due to bleeding #DISPO: m/s, d/c on hold pending Med Onc/Rad Onc input FULL code Visit type - Emergency Visit Emergency Visit: No - New Patient This patient is new to me today: No - Critical Care Critical Care patient: No
--- NOTE | 2017-10-22 07:47 | PN ---
Teaching Attending Note Name of Resident: Maria Antonia Avilez ATTENDING PHYSICIAN STATEMENT I saw and evaluated the patient. I reviewed the resident's note and discussed the case with the resident. I agree with the resident's findings and plan as documented with exceptions below. SUBJECTIVE: Patient seen and examined. intermittent blood in toilet, feels coming from rectum, no abdominal pain, nausea, vomiting, tolerating diet for now. OBJECTIVE: Vital Signs Period Temp Pulse Resp BP Sys/Rao Pulse Ox Last 24 Hr 97.7 F-98.2 F 60-106 16-20 108-144/49-90 94-98 Intake & Output 10/19/17 10/20/17 10/21/17 10/22/17 23:59 23:59 23:59 23:59 Intake Total 3622 873 4785 378 Output Total 1500 1 10 Balance 670 327 5112 378 Weight 163 lb 4.8 oz 159 lb 9.6 oz GEneral: lyin g in bed in no acute distress Abdomen: soft, NT throughout, ND, positive bowel sounds Rectal: skin tags, mild blood scott-rectal area, unable to appreciate mass in scott-rectal area, rectal exam limited by pain, some irregularity with some stool mixed with bright blood Chest: CTAB, no rales or wheezing Home Medication List Medication Instructions Recorded Confirmed Type Alprazolam [Xanax] 0.25 mg PO ONCE PRN 10/18/17 10/18/17 History Lisinopril 5 mg PO DAILY 10/18/17 10/18/17 History Active Medications Generic Name Dose Route Start Last Admin Trade Name Freq PRN Reason Stop Dose Admin Benzocaine 1 applic 10/21/17 19:31 Americaine Ointment - [place] PRN PRN HEMORRHOIDS Docusate Sodium 100 mg 10/22/17 10:00 Colace - PO DAILY JAKUB Lactated Ringer's 1,000 mls @ 75 mls/hr 10/21/17 19:31 Lactated Ringers Solution IV ASDIR JAKUB Lactated Ringer's 1,000 mls @ 42 mls/hr 10/21/17 19:31 10/21/17 20:00 Lactated Ringers Solution IV 150 mls ASDIR JAKUB Administration Lisinopril 5 mg 10/22/17 10:00 Prinivil PO DAILY JAKUB Melatonin 5 mg 10/21/17 19:31 Melatonin PO HS PRN INSOMNIA Ondansetron HCl 4 mg 10/21/17 19:31 Zofran Injection IVPUSH Q6H PRN NAUSEA AND/OR VOMITING Oxycodone HCl 5 mg 10/21/17 19:31 Roxicodone - PO Q4H PRN PAIN LEVEL 1-5 Zolpidem Tartrate 5 mg 10/21/17 19:31 Ambien - PO HS PRN INSOMNIA Laboratory Results - last 24 hr 10/22/17 10/22/17 07:05 07:05 WBC 6.9 RBC 3.40 L Hgb 11.0 Hct 32.5 MCV 95.7 MCH 32.4 MCHC 33.9 RDW 13.4 Plt Count 146 MPV 10.9 Neutrophils % 72.1 Lymphocytes % 13.8 D Monocytes % 11.4 H Eosinophils % 1.9 D Basophils % 0.8 Sodium 141 Potassium 3.9 Chloride 109 H Carbon Dioxide 24 Anion Gap 8 BUN 18 Creatinine 0.8 Creat Clearance w eGFR > 60 Random Glucose 83 Calcium 8.1 L Total Bilirubin 0.5 AST 14 L ALT 10 L Alkaline Phosphatase 53 Total Protein 5.5 L Albumin 2.7 L ASSESSMENT AND PLAN: 82yo F with PMH HTN, diverticulosis, hemrrhoids, polypectomy a few weeks ago presented to the ER with BRBPR, found with friabl anal mass on rectosigmoidoscopy. -Friable anal mass, etiology for hematochezia -Acute blood loss anemia, h/h stable. -Hematuria, obstructive process from anal mass,, less likely fistula infection ( urine contaminated sample) , vs contaminated sample from rectal bleed 1. BRBPR- due to prolapsed hemorrhoid that was seen on recent colonoscopy. NPO for hemorrhoidectomy today. Hgb has remained stable during hospital course. F/u GI and surgery recommendations. -UTI vs asymptomatic bacteruria, repeat u/a neg -HTN Plan: Oncology/radiaton oncology input. CT Chest and staging. Follow up with surgery for possible surgical intervention vs transfer to colorectal service at tertiary care center. Given new diagnosis of mass, will need urology input and likely cystoscopy at some point to address obstructive process/malignant invasion. Urology consult. h/h stable, monitor for now. Repeat u/a clean, hold off on antibiotics. home lisinopril with caution and monitoring of renal function. DVTPPX with SCDs Dispo on hold pending oncology work up and further plan of care. Plan discussed with patient and daughter at bedside in detail, all questions answered.
[2017-10-22 08:00] LABS: BASO % 0.8 % (0-2.0); EOS % 1.9 % (0-4.5); HEMATOCRIT 32.5 % (32.4-45.2); LYMPH % 13.8 % (8-40); MCH 32.4 pg (25.7-33.7); MCHC 33.9 g/dl (32.0-36.0); MEAN CELL VOLUME 95.7 fl (80-96); MEAN PLT VOLUME 10.9 fl (7.5-11.1); MONO % 11.4 % (3.8-10.2); NEUT % 72.1 % (42.8-82.8); PLATELET COUNT 146 K/MM3 (134-434); RDW 13.4 % (11.6-15.6); WHITE BLOOD COUNT 6.9 K/mm3 (4.0-10.0)
[2017-10-22 08:11] LABS: CHLORIDE 109 mmol/L (98-107); POTASSIUM 3.9 mmol/L (3.5-5.1); SODIUM 141 mmol/L (136-145)
[2017-10-22 08:24] LABS: ALBUMIN 2.7 g/dl (3.4-5.0); ALK PHOS 53 U/L (45-117); ANION GAP 8 (8-16); BILIRUBIN,TOTAL 0.5 mg/dL (0.2-1.0); BLOOD UREA NITROGEN 18 mg/dL (7-18); CALCIUM 8.1 mg/dL (8.5-10.1); CO2 24 mmol/L (21-32); CREATININE 0.8 mg/dL (0.55-1.02); GLUCOSE,RANDOM 83 mg/dL (74-106); SGOT/AST 14 U/L (15-37); SGPT/ALT 10 U/L (12-78); TOT PROT 5.5 g/dl (6.4-8.2)
--- NOTE | 2017-10-22 09:17 | PN ---
Progress Note (short form) - Note Progress Note: POD #1 - s/p biopsy of rectal tumor under spinal anesthesia. VSS. Pt. doing well , resting comfortably in bed. No complaints. No apparent anesthetic complications noted. Continue current care.
[2017-10-22] MEDS: DOCUSATE SODIUM 100 MG CAPSULE (FP) PO SCH (10:54)
[2017-10-22] MEDS: LISINOPRIL 5 MG TABLET (FP) PO SCH (10:54)
[2017-10-22 18:20] LABS: URINE APPEARANCE CLEAR; URINE BILIRUBIN NEGATIVE (<2.0 mg/dL); URINE COLOR LTYELLOW; URINE GLUCOSE (UA) NEGATIVE (NEGATIVE); URINE KETONE NEGATIVE (NEGATIVE); URINE NITRITE NEGATIVE (NEGATIVE); URINE PROTEIN NEGATIVE (NEGATIVE)
[2017-10-22 18:30] LABS: URINE LEUK ESTERASE 2+ (NEGATIVE)
[2017-10-22 18:34] LABS: EPI CELLS RARE /HPF (FEW); URINE BACTERIA RARE /hpf (NONE SEEN)
--- NOTE | 2017-10-22 19:44 | CONSULT ---
Consult Consult Specialty:: Oncology Reason for Consultation:: Anal mass-biopsy pending - History of Present Illness Chief Complaint: Presented with rectal bleeding History of Present Illness: Several weeks ago underwent colonoscopy with polypectomy of villous adenoma. Noted at that time to have what was felt to be internal hemorrhoids. Post procedure persistent bleeding. Found to have anal mass. Under anesthesia , biopsy performed. - Results pending Mass felt to be invading vagina. Patient with blood in bowl - ?? hematuria, ?? vaginal in origin. - History Source History Provided By: Patient, Medical Record Limitations to Obtaining History: No Limitations - Past Medical History Cardio/Vascular: Yes: HTN Gastrointestinal: Yes: Diverticulosis, GI Bleed Renal/: Yes: Hematuria ...: No ...: 3 ...Para: 2 (1 ectopic) Heme/Onc: Yes: Anemia Psych: Yes: Anxiety Rheumatology: Yes: Fibromyalgia - Past Surgical History Past Surgical History: Yes: Hysterectomy, Joint Replacement (right knee) Additional Surgical History: partial hysterectomy- details unclear; right total knee replacement;. 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year[place] Born in [place] Home Medications - Allergies Allergies/Adverse Reactions: Allergies Allergy/AdvReac Type Severity Reaction Status Date / Time Sulfa (Sulfonamide Allergy Verified 10/18/17 16:07 Antibiotics) - Home Medications Home Medications: Ambulatory Orders Alprazolam [Xanax] 0.25 mg PO ONCE PRN 10/18/17 Lisinopril 5 mg PO DAILY 10/18/17 Family Disease History - Family Disease History Family Disease History: CA: Father (leukemia), Sister (breast cancer), Other: Mother (alzheimer) Review of Systems - Review of Systems Constitutional: reports: Weakness. denies: Fever, Loss of Appetite, Night Sweats Eyes: denies: Blurred Vision, Double Vision, Eye Pain HENT: denies: Difficult Swallowing, Epistaxis, Hearing Loss, Mouth Swelling, Throat Pain Neck: denies: Swollen Glands, Tenderness Cardiovascular: denies: Chest Pain, Shortness of Breath Respiratory: denies: Exercise Intolerance, SOB, SOB on Exertion Gastrointestinal: reports: Constipation, Rectal Bleeding Genitourinary: reports: Hematuria, Vaginal Bleeding Breasts: reports: No Symptoms Reported, Other (no mammography > 5 years) Integumentary: denies: Bruising, Change in Color, Eczema, Erythema Neurological: reports: No Symptoms Endocrine: reports: No Symptoms Hematology/Lymphatic: reports: Excessive Bleeding. denies: Easily Bruised, Swollen Glands Psychiatric: reports: No Symptoms Physical Exam Vital Signs: Vital Signs Temperature 97.5 F L 10/22/17 18:53 Pulse Rate 81 10/22/17 18:53 Respiratory Rate 18 10/22/17 18:53 Blood Pressure 139/68 10/22/17 18:53 O2 Sat by Pulse Oximetry (%) 97 10/22/17 09:00 Constitutional: Yes: Anxious, Mild Distress Eyes: Yes: EOM Intact, PERRL. No: Diplopia, Ptosis, Sclera Icterus, Other HENT: Yes: Normocephalic. No: Epistaxis, Thrush, Tonsillar Exudate Neck: No: Lymphadenopathy, Tenderness, Thyromegaly Cardiovascular: Yes: Regular Rate and Rhythm Respiratory: Yes: CTA Bilaterally Gastrointestinal: Yes: Normal Bowel Sounds. No: Abdomen, Obese, Splenomegaly Renal/: No: CVA Tenderness - Left, CVA Tenderness - Right Breast(s): Yes: WNL, Left, Right Musculoskeletal: No: Back Pain Extremities: Yes: Other (mild left ankle swelling). No: Calf Tenderness Neurological: Yes: WNL ...Motor Strength: WNL Psychiatric: Yes: WNL Labs: CBC, BMP 10/22/17 07:05 10/22/17 07:05 Imaging - Results Cat Scan: Report Reviewed Ultrasound: Report Reviewed Problem List - Problems (1) Rectal bleeding Assessment/Plan: Patient with history of recent colonoscopy for adenoma treated by polypectomy. Initially felt to have hemmorhoids. Post procedure bleeding persistence requiring further investigation. Found to have anal mass. Biopsy performed and path is pending. OP report suggest mass was invading vagina. Did have recent FORENSIC ACCOUNTANT exam and details and findings not available. CT of abdomen and pelvis without obvious mets. Will need await path. Anal ca typically treated with RT/chemotherapy. Alternatively A-P resection. Would suggest PET-CT as out patient. Repeat FORENSIC ACCOUNTANT examination if feasible Need to discuss further with surgery, RT, to decide about approach as patient is 82 years and RT/ChemoRX protocol is quite difficult . Code(s): K62.5 - HEMORRHAGE OF ANUS AND RECTUM
--- NOTE | 2017-10-22 20:59 | PN ---
Progress Note (short form) - Note Progress Note: Radiation Oncology Pt seen today, chart/notes reviewed, full consult to follow. 82yo intermittent rectal bleeding x 1 mo s/p recent colonoscopy/polypectomy, persistent rectal bleeding, eval by Dr. Bowman revealed anorectal mass, biopsied, results pending. CT scans failed to show regional or distant mets. Would benefit from CT chest and/or outpatient PET-CT for staging. Discussed w pt/ children that optimal therapeutic mgt will depend on histology, role of surgical resection which would likely would require APR, role of chemoradiation would be neoadjuvantly or definitively based on path and surgical eval. Will need to determine if appropriate candidate for chemo as well. Await biopsy result. Med onc eval awaited. Will follow up after path and discussion with surgery and medical oncology teams.
[2017-10-22 21:15] LABS: HEMATOCRIT 32.8 % (32.4-45.2); PLATELET COUNT 168 K/MM3 (134-434); WHITE BLOOD COUNT 6.8 K/mm3 (4.0-10.0)
[2017-10-22 21:17] LABS: BASO % 0.6 % (0-2.0); EOS % 2.7 % (0-4.5); HEMOGLOBIN 11.3 GM/dL (10.7-15.3); LYMPH % 17.5 % (8-40); MCHC 34.5 g/dl (32.0-36.0); MEAN CELL VOLUME 95.6 fl (80-96); MEAN PLT VOLUME 11.3 fl (7.5-11.1); MONO % 13.3 % (3.8-10.2); NEUT % 65.9 % (42.8-82.8); RBC 3.43 M/mm3 (3.60-5.2); RDW 13.5 % (11.6-15.6)
--- NOTE | 2017-10-23 09:42 | PN ---
Physical Exam: SUBJECTIVE: Patient seen and examined OBJECTIVE: Vital Signs Period Temp Pulse Resp BP Sys/Rao Pulse Ox Last 24 Hr 97.5 F-98.7 F 69-85 17-18 106-139/52-73 97 GENERAL: The patient is awake, alert, and fully oriented, in no acute distress. HEAD: Normal with no signs of trauma. EYES: PERRL, extraocular movements intact, sclera anicteric, conjunctiva clear. No ptosis. ENT: Ears normal, nares patent, oropharynx clear without exudates, moist mucous membranes. NECK: Trachea midline, full range of motion, supple. LUNGS: Breath sounds equal, clear to auscultation bilaterally, no wheezes, no crackles, no accessory muscle use. HEART: Regular rate and rhythm, S1, S2 without murmur, rub or gallop. ABDOMEN: Soft, nontender, nondistended, normoactive bowel sounds, no guarding, no rebound, no hepatosplenomegaly, no masses. EXTREMITIES: 2+ pulses, warm, well-perfused, no edema. NEUROLOGICAL: Cranial nerves II through XII grossly intact. Normal speech, gait not observed. PSYCH: Normal mood, normal affect. SKIN: Warm, dry, normal turgor, no rashes or lesions noted Laboratory Results - last 24 hr 10/22/17 10/22/17 17:45 20:45 WBC 6.8 RBC 3.43 L Hgb 11.3 Hct 32.8 MCV 95.6 MCH 33.0 MCHC 34.5 RDW 13.5 Plt Count 168 MPV 11.3 H Neutrophils % 65.9 Lymphocytes % 17.5 D Monocytes % 13.3 H Eosinophils % 2.7 Basophils % 0.6 Urine Color Ltyellow Urine Appearance Clear Urine pH 7.0 Ur Specific [place] 1.008 Urine Protein Negative Urine Glucose (UA) Negative Urine Ketones Negative Urine Blood 2+ H Urine Nitrite Negative Urine Bilirubin Negative Urine Urobilinogen 2.0 H Ur Leukocyte Esterase 2+ H Urine WBC (Auto) 6 Urine RBC (Auto) 1 Ur Epithelial Cells Rare Urine Bacteria Rare Active Medications Generic Name Dose Route Start Last Admin Trade Name Freq PRN Reason Stop Dose Admin Benzocaine 1 applic 10/21/17 19:31 Americaine Ointment - [place] PRN PRN HEMORRHOIDS Docusate Sodium 100 mg 10/22/17 10:00 10/22/17 10:54 Colace - PO 100 mg DAILY JAKUB Administration Lisinopril 5 mg 10/22/17 10:00 10/22/17 10:54 Prinivil PO 5 mg DAILY JAKUB Administration Melatonin 5 mg 10/21/17 19:31 Melatonin PO HS PRN INSOMNIA Ondansetron HCl 4 mg 10/21/17 19:31 Zofran Injection IVPUSH Q6H PRN NAUSEA AND/OR VOMITING Oxycodone HCl 5 mg 10/21/17 19:31 Roxicodone - PO Q4H PRN PAIN LEVEL 1-5 Zolpidem Tartrate 5 mg 10/21/17 19:31 Ambien - PO HS PRN INSOMNIA ASSESSMENT/PLAN:
[2017-10-23] MEDS: DOCUSATE SODIUM 100 MG CAPSULE (FP) PO SCH (10:51)
[2017-10-23] MEDS: LISINOPRIL 5 MG TABLET (FP) PO SCH (10:51)
[2017-10-23] MEDS ORDERED: DOCUSATE SODIUM 100 MG CAPSULE (FP) PO PRN (11:06)
[2017-10-23] MEDS ORDERED: POLYETHYLENE GLYCOL 3350 119 GM BTL PO SCH (11:15)
[2017-10-23 12:58] LABS: HEMATOCRIT 36.4 % (32.4-45.2); HEMOGLOBIN 12.1 GM/dL (10.7-15.3); MCH 32.3 pg (25.7-33.7); MCHC 33.3 g/dl (32.0-36.0); MEAN CELL VOLUME 97.1 fl (80-96); MEAN PLT VOLUME 10.6 fl (7.5-11.1); PLATELET COUNT 184 K/MM3 (134-434); RBC 3.75 M/mm3 (3.60-5.2); RDW 13.7 % (11.6-15.6); WHITE BLOOD COUNT 6.6 K/mm3 (4.0-10.0)
--- NOTE | 2017-10-23 13:21 | PATH ---
Surgical Pathology Report Patient Name: JARRETT PENDLETON [facility] [place]. Rec. #: [id number] /Age/Gender: 1935 (Age: 82) / F Account: [id number] Location: [address] [place] [address]/[facility] Taken: 10/21/2017 Received: 10/22/2017 Reported: 10/23/2017 Physicians: Ita Wood M.D. Specimen(s) Received ANAL MASS BIOPSY Clinical History Rectal bleeding Postoperative diagnosis: Anal mass Final Diagnosis ANAL MASS, BIOPSY: INVASIVE SQUAMOUS CELL CARCINOMA, MODERATE TO POORLY DIFFERENTIATED. Comment: Findings discussed with Dr. Bowman. Electronically Signed Carolyn Nathan M.D. Gross Description Received in formalin labeled "anal mass biopsy," is a 2.1 x 1.9 x 0.3 cm aggregate of price-brown soft tissue fragments. The formalin is filtered and the specimen is entirely submitted in one cassette. /10/22/2017 [facility]10/22/2017
--- NOTE | 2017-10-23 13:46 | CONS ---
DATE OF CONSULTATION: 10/22/2017 REFERRING PHYSICIAN: Kuldeep Bowman MD REASON FOR CONSULTATION: Anorectal mass. HISTORY OF PRESENT ILLNESS: The patient is an 82-year-old woman who has had intermittent rectal bleeding for about a month and had a colonoscopy recently which showed a villous adenoma in the cecum and had a polypectomy as well as diverticulosis and internal hemorrhoids. Post colonoscopy she had persistent bleeding and was sent for further evaluation. On admission CT abdomen and pelvis showed colonic diverticulosis, right adnexal cyst, no definite metastatic disease or adenopathy. Rectal exam showed a friable bleeding anal mass below the dentate line. Dr. Bowman performed examination under anesthesia, proctosigmoidoscopy/anoscopy and anal mass biopsies. Intraoperatively she was noted to have a friable mass of the anterior circumference of the rectum extending 3 cm from the anal verge from the 10 o' clock to 3 o'clock position. Biopsies were obtained. The mass was noted to be friable and ulcerated, beginning to invade the posterior vaginal wall, but the posterior vaginal mucosa was noted to be intact. The remainder of the proctosigmoidoscopy was unremarkable and no active bleeding was detected. Pathology from the biopsy is pending. PAST MEDICAL HISTORY: Anxiety, hypertension, diverticulosis. No history of radiation therapy or inflammatory bowel disease. PAST SURGICAL HISTORY: Hysterectomy, right knee replacement. ALLERGIES: SULFA. CURRENT MEDICATIONS: Lisinopril; Ambien p.r.n.; Colace. SOCIAL HISTORY: Born in [place]. She does not smoke or consume alcohol. FAMILY HISTORY: Father had leukemia. Sister had breast cancer. REVIEW OF SYSTEMS: A 5- to 6-pound weight loss without change in appetite. No abdominal pain, nausea, vomiting, constipation or change in bowel habits. She does note possible vaginal bleeding and/or hematuria. 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 She has no dysuria, urinary or bowel incontinence. PHYSICAL EXAMINATION:General: Elderly female appearing her age in no acute distress. Daughter and son are at the bedside. Vital Signs: Temperature 98.1, blood pressure 106/73, pulse 83, respiratory rate 18, SAO2 97%, room air. HEENT: Normocephalic, atraumatic. Moist mucous membranes. Mild pallor. Clear oral cavity without lesions. Neck: No adenopathy. Chest: Clear. Cardiovascular: Regular. Abdomen: Soft, nontender, nondistended. Extremities: No edema. Neurologic: Nonfocal. RADIOLOGIC DATA: CT abdomen and pelvis as noted. PATHOLOGIC DATA: Anal mass biopsy awaited. IMPRESSION: An 82-year-old woman with locally advanced bleeding likely anorectal malignancy. She is hemodynamically stable with a stable hemogram. The results of the biopsy are awaited. There may be anterior involvement of the vagina by the mass. Further gynecologic evaluation to rule out involvement is awaited. I briefly discussed with her and her family that management will be based on the pathology results and the histology of this malignancy as well as whether she is a candidate for surgery that would most likely require an abdominoperineal resection. The role of chemoradiation either definitively or preoperatively will be based on the pathology and surgery evaluation. Further staging with positron emission tomography/computed tomography and chest CT. She will need Medical Oncology evaluation to determine if she is an appropriate candidate for systemic therapy. PLAN: Further management pending biopsy results and discussion with multidisciplinary oncology teams. Thank you for asking me to see this patient. BETZAIDA DANIELS M.D. [id number] MTDD
--- NOTE | 2017-10-23 14:05 | PN ---
Teaching Attending Note Name of Resident: Maria Antonia Avilez ATTENDING PHYSICIAN STATEMENT I saw and evaluated the patient. I reviewed the resident's note and discussed the case with the resident. I agree with the resident's findings and plan as documented with exceptions below. SUBJECTIVE: Patient seen and examined, no further bleeding, urinating well, no new complaints. OBJECTIVE: Vital Signs Period Temp Pulse Resp BP Sys/Rao Pulse Ox Last 24 Hr 97.5 F-98.7 F 69-85 17-18 112-139/52-68 97 Intake & Output 10/20/17 10/21/17 10/22/17 10/23/17 23:59 23:59 23:59 23:59 Intake Total 220 1250 1278 0 Output Total 1 10 Balance 219 1240 1278 0 Weight 159 lb 9.6 oz 161 lb 161 lb 0.8 oz General: sitting in chair in no acute distress Home Medication List Medication Instructions Recorded Confirmed Type Alprazolam [Xanax] 0.25 mg PO ONCE PRN 10/18/17 10/18/17 History Lisinopril 5 mg PO DAILY 10/18/17 10/18/17 History Active Medications Generic Name Dose Route Start Last Admin Trade Name Freq PRN Reason Stop Dose Admin Benzocaine 1 applic 10/21/17 19:31 Americaine Ointment - [place] PRN PRN HEMORRHOIDS Docusate Sodium 100 mg 10/22/17 10:00 10/23/17 10:51 Colace - PO 100 mg DAILY JAKUB Administration Docusate Sodium 100 mg 10/23/17 11:06 Colace - PO BID PRN CONSTIPATION Lisinopril 5 mg 10/22/17 10:00 10/23/17 10:51 Prinivil PO 5 mg DAILY JAKUB Administration Melatonin 5 mg 10/21/17 19:31 Melatonin PO HS PRN INSOMNIA Ondansetron HCl 4 mg 10/21/17 19:31 Zofran Injection IVPUSH Q6H PRN NAUSEA AND/OR VOMITING Oxycodone HCl 5 mg 10/21/17 19:31 Roxicodone - PO Q4H PRN PAIN LEVEL 1-5 Polyethylene Glycol 17 gm 10/23/17 11:15 10/23/17 13:02 Miralax (For Daily Use) - PO Not Given DAILY JAKUB Zolpidem Tartrate 5 mg 10/21/17 19:31 Ambien - PO HS PRN INSOMNIA Laboratory Results - last 24 hr 10/22/17 10/22/17 10/23/17 17:45 20:45 12:40 WBC 6.8 6.6 RBC 3.43 L 3.75 Hgb 11.3 12.1 Hct 32.8 36.4 MCV 95.6 97.1 H MCH 33.0 32.3 MCHC 34.5 33.3 RDW 13.5 13.7 Plt Count 168 184 MPV 11.3 H 10.6 Neutrophils % 65.9 Lymphocytes % 17.5 D Monocytes % 13.3 H Eosinophils % 2.7 Basophils % 0.6 Urine Color Ltyellow Urine Appearance Clear Urine pH 7.0 Ur Specific [place] 1.008 Urine Protein Negative Urine Glucose (UA) Negative Urine Ketones Negative Urine Blood 2+ H Urine Nitrite Negative Urine Bilirubin Negative Urine Urobilinogen 2.0 H Ur Leukocyte Esterase 2+ H Urine WBC (Auto) 6 Urine RBC (Auto) 1 Ur Epithelial Cells Rare Urine Bacteria Rare ASSESSMENT AND PLAN: 82yo F with PMH HTN, diverticulosis, hemrrhoids, polypectomy a few weeks ago presented to the ER with BRBPR, found with friabl anal mass on rectosigmoidoscopy. 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 -Hematochezia, due to above -UTI vs asymptomatic bacteruria, repeat u/a neg -HTN Plan: Biopsy results noted. Bleeding stopped. H/h has been stable. Patient eager to go home and follow up outpatient. Discussed with oncology, plan for CT chest for staging and dc later with outpatient follow up WIll need co-ordinated follow up with radiation oncology/surgery and oncology within this week to discuss further treatment plan. Discussed with patient in detail, she relays full understanding of current diagnosis and agrees to follow up closely. Straight urine sample with no RBC. Bladder US with no concerns. Renal function stable, outpatient follow up. home lisinopril DVTPPX with SCDs Dispo plan for d/c home later today after CT chest with close outpatient follow up if no concerns. Plan discussed with patient and daughter at bedside in detail, all questions answered.
[2017-10-23 18:32] VITALS: BP 124/54; PULSE 76; TEMP 97.8
--- NOTE | 2017-10-23 20:41 | DS ---
Physical Exam: SUBJECTIVE: Patient seen and examined. Reports soft stool with some blood today. No fever, chills, n/v, abdominal pain, CP, sob. Patient eating and voiding well. Wishes to go home. OBJECTIVE: Vital Signs Period Temp Pulse Resp BP Sys/Rao Pulse Ox Last 24 Hr 97.8 F-98.7 F 70-85 17-18 110-125/52-54 97-98 General: aaox3, nad HEENT: no conjuctival palor, sclera anicteric Heart: RRR, normal s1/s2, no m/r/g Lungs: CTAB Abd: soft, ntnd Ext: 2+DP, wwp, no edema, chronic venous stasis changes B/L Laboratory Results - last 24 hr 10/22/17 10/23/17 20:45 12:40 WBC 6.8 6.6 RBC 3.43 L 3.75 Hgb 11.3 12.1 Hct 32.8 36.4 MCV 95.6 97.1 H MCH 33.0 32.3 MCHC 34.5 33.3 RDW 13.5 13.7 Plt Count 168 184 MPV 11.3 H 10.6 Neutrophils % 65.9 Lymphocytes % 17.5 D Monocytes % 13.3 H Eosinophils % 2.7 Basophils % 0.6 HOSPITAL COURSE: Date of Admission:10/18/17 Date of Discharge: 10/23/17 Pre-Hospital Admission Course: 82yo woman with PMH of constipation, hemorrhoids, diverticulosis, recent ascending colon polypectomy who was sent to ED by surgeon (Dr. Bowman) with PRBPR. Patient reports intermittent bleeding for past several months. Underwent c- scope (Dr. Carballo) ~3 weeks ago with 3.5cm polypectomy in proximal ascending colon. Following polypectomy patient continued to have daily painless bleeding, requiring her to change pads several times per day. She was seen by MANAGER BACKGROUND who found no e/o vaginal bleeding, and was subsequently seen in general surgery clinic Dr. Bowman who sent her to ED for further evaluation. Pt denies abdominal pain, chest pain, dizziness, or sob. No h/o bleeding disorders, epistaxis, or excessive gum bleeding during dental procedures. No family history of GI cancers, however father had leukemia and sister - breast cancer. In the ED, the patient was noted to have BRBPR with stable H&H. VSS were stable : HR 70-80's, BP: 103/76, RR 18, non-labored on RA. Patient was placed on PPI drip and transferred to ICU for further management. Subsequent Hospital Course: Patient continued to have rectal bleeding, however VS and H&H remained stable. CT A/P with angiogram failed to show a source of bleeding, suggesting a slow rate of hemorrhage. The PPI drip was d/c and patient transferred to M/S floor. GI and Surgery were consulted. She underwent ansoscopy and proctosidmoidoscopy ( Dr. Bowman) on 10/21/17 which found a 3cm ulcerated and friable anal mass extending form 10:00 to 3:00 of anal circumference. 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 Medical Oncology (Dr. Oneil) and Radiation Oncology (Dr. Stokes) were both consulted and initiated discussion of cancer treatment options with patient. Daughter Saba was also notified of anal squamous cell carcinoma finding. Chest CT with contrast was performed prior to discharge for staging, which revealed no e/o metastasis, but hilar LAD and e/o B/L chronic ILD changes. Patient's UA was initially found to have gross hematuria, however there was concern that the sample was contaminated from rectal bleeding. Repeat UA obtained showed only myoglobin (2+ blood) w/o any RBCs. There was 2+ LE, however patient denied any urinary symptoms, and therefore antibiotic treatment was not initiated. Consults: Surgery - Dr. Bowman GI - Dr. Carballo Heme/Onc - Dr. Oneil Rad Onc - Dr. Stokes IMAGING: EXAM#: TYPE/EXAM: RESULT: [id number] RAD/CHEST X-RAY PORTABLE* Chest: Abnormal lung sounds Imaging reveals a prominent mediastinum with large heart, unfolded aorta, normal denisha, coarse changes with some atelectatic/infiltrative findings at the bases and possibly some scarring/ atelectasis in the right upper lobe. Correlation recommended. The bones and soft tissues are intact. The angles are sharp. EXAM#: TYPE/EXAM: RESULT: [id number] US/PELVIC / BLADDER US Pelvic ultrasound CLINICAL INFORMATION: vaginal bleeding The study was performed utilizing transabdominal scanning. No prior ultrasound studies are available at this facility for direct comparison. The patient is status post hysterectomy. No gross mass lesion is identified in that region. A 3.5 cm right adnexal cyst is seen without associated soft tissue nodularity or thickened internal septation. There is no obvious wall thickening. Neither ovary could be definitely visualized. No free intraperitoneal fluid is seen. IMPRESSION: Status post hysterectomy. A 3.5 cm unilocular right adnexal cyst is noted which is probably ovarian in origin. The ovary itself cannot be definitely visualized. MANAGER BACKGROUND consultation is suggested in regards to follow-up/ management. EXAM#: TYPE/EXAM: RESULT: [id number] CT/ABDOMEN PELVIS CT WITH CONTR Abdomen and pelvis CT (with intravenous contrast) Clinical information: lower GI bleed and vaginal bleed Multiplanar imaging was performed following the intravenous administration of nonionic contrast. As requested oral contrast was not administered. No prior CT studies are available at this facility for direct comparison. There is no evidence of pneumoperitoneum, free intraperitoneal fluid or bowel obstruction. Status post hysterectomy. The smoothly marginated noncalcified 3.5 cm right adnexal cyst is seen without associated soft tissue nodularity or obvious thickened internal septation. Cholelithiasis is noted without CT evidence of acute cholecystitis. No biliary tract dilatation is noted. The liver, spleen, pancreas, and adrenal glands demonstrate no discrete abnormality. There is minimal to mild dilatation of the renal collecting systems bilaterally which could be on the basis of minimal to mild ureteropelvic junction obstructions. Incidental 2.4 cm right renal upper pole cortical cyst. No aortic aneurysm is noted. There is no definite lymphadenopathy. No gross small bowel pathology is seen. Sigmoid diverticulosis is noted without CT evidence of acute diverticulitis. The appendix appears unremarkable. The visualized osseous structures demonstrate no gross acute pathology or neoplastic disease. IMPRESSION: Colonic diverticulosis without evidence of acute diverticulitis. A 3.5 cm right adnexal cyst is seen without associated soft tissue nodularity or thickened internal septation. This cyst is probably ovarian in origin although the ovary itself is difficult to visualize presumably due to atrophy. MANAGER BACKGROUND consultation is suggested in regards to follow-up / management. Minimal to mild bilateral prominence of the renal collecting systems is noted which may be on the basis of minimal to mild UPJ obstructions. Correlate with 6 month follow-up sonography. The partially imaged lower lobes demonstrate bilateral interstitial thickening suggestive of chronic interstitial lung disease, and less likely representing an acute interstitial process. Correlate clinically. Follow-up imaging as indicated. EXAM#: TYPE/EXAM: RESULT: [id number] US/PELVIC / BLADDER US Pain in mass with hematuria and questionable fistula Pelvis/urinary bladder ultrasound Patient is status post hysterectomy. Urinary bladder is moderately distended with a volume of 380 cc and without wall thickening. Bilateral ureteral jets were identified. There is a cystic dextro in the right adnexa measuring 3 x 2.48. Postvoid urine residue is 27 cc. Impression: Adequately distended urinary bladder without wall thickening or intraluminal debris is. Bilateral ureteral jets were identified. Small postvoid urine residue of 27 cc. Right adnexal simple cyst measuring 3 x 2.4 cm which is nonspecific. EXAM#: TYPE/EXAM: RESULT: [id number] US/PELVIC / BLADDER US Pain in mass with hematuria and questionable fistula Pelvis/urinary bladder ultrasound Patient is status post hysterectomy. Urinary bladder is moderately distended with a volume of 380 cc and without wall thickening. Bilateral ureteral jets were identified. There is a cystic dextro in the right adnexa measuring 3 x 2.48. Postvoid urine residue is 27 cc. Impression: Adequately distended urinary bladder without wall thickening or intraluminal debris is. Bilateral ureteral jets were identified. Small postvoid urine residue of 27 cc. Right adnexal simple cyst measuring 3 x 2.4 cm which is nonspecific. Minutes to complete discharge: 45 Discharge Summary Reason For Visit: HEMATURIA, RECTAL HEMORRHAGE Condition: Stable - Instructions Diet, Activity, Other Instructions: You were found to have an anal mass, which was biopsied and found to be squamous cell carcinoma. You were seen by Dr. Oneil (Medical Oncologist) and Dr. Stokes (Radiation Oncologist) to discuss further treatment options and plans. Follow-ups: -Call Dr. Oneil's office tomorrow (closed today) to set up an appointment early next week to discuss treatment options. Discuss with Dr. Oneil about coordinating an appointment with Dr. Stokes for Radiation therapy. -Have your blood counts (CBC) checked in 1 week. -Make an appointment to see Dr. Bowman (general surgeon) next week for post- surgical evaluation. -Imaging of your Chest found some enlarged lymph nodes and chronic changes in your lung tissue. Discuss this with Dr. Oneil. -Imaging of your pelvis revealed a Right ovarian simple cyst. You should discuss this result with your Moving Consultant. -Stones in gall bladder were also observed, but there is no sign of inflammation or infection. Medications: Continue taking your regular home medications as prescribed. -You are also prescribed Colace, which is a stool softner. You can take this 1- 2 times per day as needed so that you have 1 BM per day. PLEASE NOTE THAT IT IS VERY IMPORTANT THAT YOU FOLLOW WITH ONCOLOGIST AND SURGERY WITHIN 1 WEEK TO DISCUSS FURTHER PLANS OF CARE. IF YOU NOTICE ANY MORE BLEEDING, BELLY PAIN, INABILITY TO DEFECATE OR URINATE, BELLY DISTENSION, NAUSEA, VOMITING, INABILITY TO EAT, FEVERS, CHILLS OR ANY NEW CONCERNS, PLEASE CALL 911 OR COME TO ED IMMEDIATELY. Referrals: Kuldeep Bowman MD [Staff Physician] - Ismael Stokes MD [Staff Physician] - Nabil Carballo MD [Primary Care Provider] - Wilberto Oneil MD [Staff Physician] - 1 Week Disposition: HOME - Home Medications Comprehensive Discharge Medication List: Ambulatory Orders Alprazolam [Xanax] 0.25 mg PO ONCE PRN 10/18/17 Lisinopril 5 mg PO DAILY 10/18/17 Docusate Sodium [Colace -] 100 mg PO BID PRN #60 capsule 10/23/17 This patient is new to me today: No Emergency Visit: No Critical Care patient: No - Discharge Referral Referred to [facility] No
== END 2017-10-23 18:38 | disposition home or self-care (01) | DRG 375 ==
LOC: JER 16:03 → JERBED 21:34 → JICU 10-19 01:25 → J5S 10-19 19:25
PROVIDERS: ADMIT Internal Medicine; ATTEND Hospitalist
PROC: 0DJD8ZZ Inspection of Lower Intestinal Tract, Via Natural or Artificial Opening Endoscopic (ICD-10-PCS; 2017-10-21)
PROC: 0DBQ8ZX Excision of Anus, Via Natural or Artificial Opening Endoscopic, Diagnostic (ICD-10-PCS; principal; 2017-10-21 15:00)
DX: C21.0 Malignant neoplasm of anus, unspecified (principal); K92.2 Gastrointestinal hemorrhage, unspecified; D62 Acute posthemorrhagic anemia; I10 Essential (primary) hypertension; R31.9 Hematuria, unspecified; K64.9 Unspecified hemorrhoids; G47.00 Insomnia, unspecified; N28.1 Cyst of kidney, acquired; F41.9 Anxiety disorder, unspecified
CPT/HCPCS: 36415; 71045-TC-FY; 71260-TC; 74177-TC; 76856-TC; 80048; 80053; 81003; 81015; 82272; 82550; 83615; 83735; 84100; 84484; 85025; 85027; 85384; 85610; 85730; 86850; 86900; 86901; 87086; 88305-TC; 93005; 93010; 94760; 99285-25; J7030

== ENCOUNTER 2017-11-18 06:21 | Inpatient (IN) | payer OTHER, MEDICARE ==
[2017-11-14 10:01] VITALS: BMI 26.2
[2017-11-18 07:27] LABS: BASO % 0.5 % (0-2.0); EOS % 0.7 % (0-4.5); HEMATOCRIT 39.4 % (32.4-45.2); HEMOGLOBIN 13.2 GM/dL (10.7-15.3); LYMPH % 21.5 % (8-40); MCH 31.8 pg (25.7-33.7); MCHC 33.5 g/dl (32.0-36.0); MEAN CELL VOLUME 95.1 fl (80-96); MEAN PLT VOLUME 10.9 fl (7.5-11.1); MONO % 9.4 % (3.8-10.2); NEUT % 67.9 % (42.8-82.8); PLATELET COUNT 228 K/MM3 (134-434); RBC 4.14 M/mm3 (3.60-5.2); RDW 13.4 % (11.6-15.6); WHITE BLOOD COUNT 8.2 K/mm3 (4.0-10.0)
[2017-11-18] MEDS ORDERED: HEPARIN NA (PORCINE) 5,000 UNITS/ML 1ML VIAL ONE (07:30)
[2017-11-18] MEDS ORDERED: LIDOCAINE HCL 1%, 10 MG/ML (20ML VIAL) ONE (07:30)
[2017-11-18 07:41] LABS: ALBUMIN 3.7 g/dl (3.4-5.0); ANION GAP 12 (8-16); BLOOD UREA NITROGEN 15 mg/dL (7-18); CALCIUM 9.4 mg/dL (8.5-10.1); CHLORIDE 101 mmol/L (98-107); CO2 24 mmol/L (21-32); CREATININE 1.2 mg/dL (0.55-1.02); GLUCOSE,RANDOM 188 mg/dL (74-106); MAGNESIUM 1.9 mg/dL (1.8-2.4); POTASSIUM 3.6 mmol/L (3.5-5.1); SGOT/AST 15 U/L (15-37); SGPT/ALT 13 U/L (12-78); SODIUM 137 mmol/L (136-145)
[2017-11-18 07:49] LABS: ALK PHOS 67 U/L (45-117); BILIRUBIN,TOTAL 0.5 mg/dL (0.2-1.0); PREALBUMIN 17.5 mg/dl (20.-40); TOT PROT 7.1 g/dl (6.4-8.2)
[2017-11-18] MEDS ORDERED: PALONOSETRON HCL 0.25 MG/5 ML VIAL IVPUSH ONE (08:00)
[2017-11-18] MEDS ORDERED: DEXAMETHASONE INJECTION 10 MG in SODIUM CHLORIDE 50 ML IVPB ONE (08:00)
--- NOTE | 2017-11-18 08:23 | HP ---
History & Physical Update - History History: No Change - Physical Physical: No Change - Assessment Assessment: No Change - Plan Currently as noted:: for chemotherapy port insertion with US guidance and C-arm
[2017-11-18] MEDS ORDERED: MIDAZOLAM HCL 2 MG/2 ML SINGLE DOSE VIAL ONE (08:24)
[2017-11-18] MEDS ORDERED: ceFAZolin SODIUM 1 GM VIAL IVPB ONE (08:34)
[2017-11-18] MEDS ORDERED: ceFAZolin SODIUM 1 GM VIAL ONE (08:35)
[2017-11-18] MEDS ORDERED: HEPARIN NA (PORCINE) 5,000 UNITS/ML 1ML VIAL SQ ONE (08:47)
[2017-11-18] MEDS ORDERED: LIDOCAINE HCL 1%, 10 MG/ML (20ML VIAL) NR ONE ×2 (08:47)
[2017-11-18] MEDS ORDERED: SODIUM CHLORIDE IV ONE (09:00)
[2017-11-18] MEDS ORDERED: FLUOROURACIL IV ONE (09:00)
--- NOTE | 2017-11-18 09:52 | OP ---
Operative Note - Note: Operative Date: 11/18/17 Pre-Operative Diagnosis: anal SCCA Operation: CHEMOTHERAPY PORT INSERTION WITH US AND C-ARM GUIDANCE Findings: BOUBLE PORT SYSTEM INSERTED Surgeon: Kuldeep Bowman Anesthesia: Local, MAC Estimated Blood Loss (mls): 10 Operative Report Dictated: Yes
[2017-11-18] MEDS ORDERED: ONDANSETRON 4 MG/2 ML VIAL IVPUSH PRN (09:54)
[2017-11-18] MEDS ORDERED: LACTATED RINGERS SOLUTION 1,000 ML IV SCH (10:00)
[2017-11-18] MEDS ORDERED: DOCUSATE SODIUM 100 MG CAPSULE (FP) PO PRN (14:07)
--- NOTE | 2017-11-18 14:13 | HP ---
CHIEF COMPLAINT: Chemo PCP: none HISTORY OF PRESENT ILLNESS: This is an 82 year old female with PMHx of HTN, anxiety, recently diagnosed with anal cancer (10/21/17), who had mediport placement today and is being admitted for initialization of chemotherapy. The patient denies any complaints at this time. She is tearful throughout our discussion because of her recent cancer diagnosis and fears of receiving chemotherapy. The patient reports she does suffer from anxiety and that Xanax does help. Recent Travel: denies PAST MEDICAL HISTORY: as above Social History: Smoking: denies Alcohol: denies Drugs: denies Family History: Allergies Sulfa (Sulfonamide Antibiotics) Allergy (Verified 11/18/17 07:29) HOME MEDICATIONS: Home Medications Medication Instructions Recorded Alprazolam [Xanax] 0.25 mg PO BID 10/18/17 Lisinopril 5 mg PO DAILY 10/18/17 Docusate Sodium [Colace -] 100 mg PO BID PRN #60 capsule 10/23/17 REVIEW OF SYSTEMS CONSTITUTIONAL: Absent: fever, chills, diaphoresis, generalized weakness, malaise, loss of appetite, weight change HEENT: Absent: rhinorrhea, nasal congestion, throat pain, throat swelling, difficulty swallowing, mouth swelling, ear pain, eye pain, visual changes CARDIOVASCULAR: Absent: chest pain, syncope, palpitations, irregular heart rate, lightheadedness , peripheral edema RESPIRATORY: Absent: cough, shortness of breath, dyspnea with exertion, orthopnea, wheezing, stridor, hemoptysis GASTROINTESTINAL: Absent: abdominal pain, abdominal distension, nausea, vomiting, diarrhea, constipation, melena, hematochezia GENITOURINARY: Absent: dysuria, frequency, urgency, hesitancy, hematuria, flank pain, genital pain MUSCULOSKELETAL: Absent: myalgia, arthralgia, joint swelling, back pain, neck pain SKIN: Absent: rash, itching, pallor HEMATOLOGIC/IMMUNOLOGIC: Hx of rectal bleeding with recent diagnosis of anal cancer Absent: easy bruising, lymphadenopathy, frequent infections ENDOCRINE: Absent: unexplained weight gain, unexplained weight loss, heat intolerance, cold intolerance NEUROLOGIC: Absent: headache, focal weakness or paresthesias, dizziness, unsteady gait, seizure, mental status changes, bladder or bowel incontinence PSYCHIATRIC: Absent: anxiety, depression, suicidal or homicidal ideation, hallucinations. PHYSICAL EXAMINATION Vital Signs - 24 hr 11/18/17 11/18/17 11/18/17 07:26 07:27 09:44 Temperature 97.4 F L 97.5 F L Pulse Rate 120 H 94 H Respiratory 18 16 Rate Blood Pressure 138/87 124/65 O2 Sat by Pulse 98 96 Oximetry (%) 11/18/17 11/18/17 11/18/17 10:00 10:15 10:30 Temperature Pulse Rate 82 84 86 Respiratory 16 16 16 Rate Blood Pressure 120/52 126/60 129/54 O2 Sat by Pulse 96 96 98 Oximetry (%) 11/18/17 11/18/17 11/18/17 10:45 11:00 11:15 Temperature Pulse Rate 84 86 84 Respiratory 16 16 16 Rate Blood Pressure 128/56 127/56 142/62 O2 Sat by Pulse 98 100 100 Oximetry (%) 11/18/17 11/18/17 11:30 11:45 Temperature 97.8 F Pulse Rate 76 74 Respiratory 16 16 Rate Blood Pressure 142/58 137/54 O2 Sat by Pulse 100 Oximetry (%) GENERAL: Awake, alert, and fully oriented, tearful HEAD: Normal with no signs of trauma. EYES: Pupils equal, round and reactive to light, extraocular movements intact, sclera anicteric, conjunctiva clear. No lid lag. EARS, NOSE, THROAT: Ears normal, nares patent, oropharynx clear without exudates. Moist mucous membranes. NECK: Normal range of motion, supple without lymphadenopathy, JVD, or masses. LUNGS: Breath sounds equal, clear to auscultation bilaterally. No wheezes, and no crackles. No accessory muscle use. HEART: Regular rate and rhythm, normal S1 and S2 ABDOMEN: Soft, nontender, not distended, normoactive bowel sounds, no guarding, no rebound, no masses. MUSCULOSKELETAL: Normal range of motion at all joints. No bony deformities or tenderness. No CVA tenderness. UPPER EXTREMITIES: 2+ pulses, warm, well-perfused. No cyanosis. No clubbing. No peripheral edema. LOWER EXTREMITIES: 2+ pulses, warm, well-perfused. No calf tenderness. No peripheral edema. NEUROLOGICAL: Cranial nerves II-XII intact. Normal speech. Slow gait PSYCHIATRIC: Cooperative. Good eye contact. Appropriate mood and affect. SKIN: Warm, dry, normal turgor, no rashes or lesions noted, normal capillary refill. Laboratory Results - last 24 hr 11/18/17 11/18/17 06:55 06:55 WBC 8.2 RBC 4.14 Hgb 13.2 Hct 39.4 MCV 95.1 MCH 31.8 MCHC 33.5 RDW 13.4 Plt Count 228 D MPV 10.9 Neutrophils % 67.9 Lymphocytes % 21.5 D Monocytes % 9.4 Eosinophils % 0.7 Basophils % 0.5 Sodium 137 Potassium 3.6 Chloride 101 Carbon Dioxide 24 Anion Gap 12 BUN 15 Creatinine 1.2 H Creat Clearance w eGFR 43.23 Random Glucose 188 H Calcium 9.4 Magnesium 1.9 Total Bilirubin 0.5 AST 15 ALT 13 Alkaline Phosphatase 67 Total Protein 7.1 Albumin 3.7 Prealbumin 17.5 L Assessment: This is an 82 year old female with PMHx of HTN, anxiety, recently diagnosed with anal cancer (10/21/17), who had mediport placement today and is being admitted for initialization of chemotherapy. Plan: 1) Anal cancer - Mediport placement today - Chemo today: Mitomycin and Flourouracil - Treatment per oncology 2) BENJAMIN - Slight increase in Cr since 10/22/17: 0.8->1.2 - Will give IVF and recheck in AM - If continues to rise, will consider further imaging 3) Anxiety - Continue Xanax 4) HTN - Hold lisinopril 2/2 BENJAMIN - Will resume when Cr improves 5) F/E/N: - Monitor electrolytes - Sodium controlled diet 6) Prophylaxis: - OOB ambulating - Heparin 5,000u sq bid 7) Dispo: - Requires continued inpatient care CODE STATUS: FULL CODE Visit type - Emergency Visit Emergency Visit: Yes ED Registration Date: 11/18/17 Care time: The patient presented to the Emergency Department on the above date and was hospitalized for further evaluation of their emergent condition. - New Patient This patient is new to me today: Yes Date on this admission: 11/19/17 - Critical Care Critical Care patient: No Hospitalist Screening - Colonoscopy Questionnaire Colonoscopy Questionnaire: Colonoscopy Questionnaire - Patient: 50 - 75 years old and never had a screening colonoscopy: No History of colon or rectal polyps, or CA: Yes History of IBD, Crohn's disease or UC: No History of abdominal radiation therapy as a child: No - Relative: 1 with colon or rectal CA, or polyps at age 60 or younger: Unknown Colon or rectal CA diagnosed at age 45 or younger: Unknown Multiple relatives with colon or rectal CA: Unknown (Patient diagnosed with anal cancer 09/2017) - Outcome: Screening Result: Positive Screen
[2017-11-18] MEDS ORDERED: PORTA CATH FLUSH 10 ML IVPUSH ONE (18:42)
[2017-11-18] MEDS ORDERED: SODIUM CHLORIDE 1,000 ML IV SCH (19:00)
--- NOTE | 2017-11-18 19:30 | OP ---
DATE OF OPERATION: 11/18/2017 PROCEDURE: Insertion of chemotherapy port with ultrasound and fluoroscopic guidance. PREOPERATIVE DIAGNOSIS: Anal squamous cell carcinoma for chemoradiotherapy. POSTOPERATIVE DIAGNOSIS: Anal squamous cell carcinoma for chemoradiotherapy. SURGEON: Kuldeep Bowman MD ANESTHESIA: Local with sedation. FINDINGS AND PROCEDURE: This is an 82-year-old female who was recently diagnosed with squamous cell carcinoma of the anus, who is to undergo chemoradiation therapy; so, patient requires vascular access for the chemotherapeutic agents. Consent was obtained after discussing the risks, benefits, and alternatives to the procedure. Patient was brought to the operating room and placed in supine position with both arms tucked to the side. Intravenous sedation was given by the anesthesia team. The operative site was prepped and draped in the usual sterile fashion. Using the ultrasound machine, the right internal jugular vein was visualized, and using the micropuncture technique, the right internal jugular vein was cannulated and the microwire was passed into the IVC under fluoroscopic imaging. Afterwards, using lidocaine 1% with epinephrine, local anesthesia was administered to the proposed pocket, and the subcutaneous tract of the catheter. Using scalpel blade number 15, a 3-cm infraclavicular incision was made at the area of the deltopectoral groove. A 4 x 3 cm pocket was made using combined blunt dissection with surgeon's digits and the Bovie cautery. Afterwards, the catheter was tunneled towards the puncture site , and the double compartment port was embedded in the subcutaneous pocket. Using the sheath over a wire technique, the catheter was then inserted to the internal jugular vein with the tip overlying the superior vena cava under real-time fluoroscopic guidance. The wound was then closed with interrupted Vicryl 3-0 suture for the dermis and continuous Biosyn 4 for the subcuticular layer. The wound closure was reinforced with Dermabond. The non-coring needles were also placed for immediate postop chemotherapy. Patient was transferred to the postanesthesia care unit in satisfactory condition. Estimated blood loss was about 10 mL. Wound class: Clean. Patient received 1 g of Ancef prior to the start of the procedure. A chest x- ray was also ordered in the postanesthesia care unit to confirm proper port placement and to rule out hemothorax. Ita [id number] MTDD
[2017-11-18] MEDS: HEPARIN NA (PORCINE) 5,000 UNITS/ML 1ML VIAL SQ SCH (22:44)
[2017-11-18] MEDS: ALPRAZolam 0.25 MG TABLET PO PRN (22:46)
[2017-11-18] MEDS ORDERED: traMADol HCL 50 MG TABLET PO PRN (23:43)
--- NOTE | 2017-11-18 23:52 | PN ---
Progress Note (short form) - Note Progress Note: Patient seen and examined s/p port placement Feels well denies anyy fever/chills/cough/SOB/abdominal pain/nausea/vomiting/diarrhea/ urinary symptoms PMH HTN anxiety Last Vital Signs Temp Pulse Resp BP Pulse Ox 97.7 F 75 20 123/64 96 11/19/17 05:57 11/19/17 05:57 11/19/17 05:57 11/19/17 05:57 11/18/17 20:53 Cor: RSR, No murmurs, No gallops Lungs: Clear to P&A Abd: Soft, Normal bowel sounds, No organomegaly Ext:No significant edema Abnormal Lab Results 11/18/17 06:55 Creatinine 1.2 H Random Glucose 188 H Prealbumin 17.5 L Active Medications Generic Name Dose Route Start Last Admin Trade Name Freq PRN Reason Stop Dose Admin Alprazolam 0.25 mg 11/18/17 14:07 11/18/17 22:46 Xanax - PO 0.25 mg BID PRN Administration ANXIETY Docusate Sodium 100 mg 11/18/17 14:07 Colace - PO BID PRN CONSTIPATION Fentanyl 25 mcg 11/18/17 09:54 Sublimaze Injection - IVPUSH [id number] PRN PAIN-PACU ORDER X 4 DOSES ONLY Heparin Sodium (Porcine) 5,000 unit 11/18/17 22:00 11/18/17 22:44 Heparin - SQ 5,000 unit BID JAKUB Administration Fluorouracil 1,225 mg/ Sodium 524.5 mls @ 21.854 mls/hr 11/18/17 09:00 15:23 Chloride IV 11/19/17 08:59 21.854 mls/hr ONCE ONE Administration Fluorouracil 1,225 mg/ Sodium 524.5 mls @ 21.854 mls/hr 11/19/17 15:00 Chloride IV 11/20/17 14:59 ONCE ONE Sodium Chloride 1,000 mls @ 75 mls/hr 11/18/17 19:00 11/18/17 22:45 Normal Saline - IV Not Given ASDIR JAKUB Fluorouracil 1,225 mg/ Sodium 524.5 mls @ 21.854 mls/hr 11/20/17 15:00 Chloride IV 11/21/17 14:59 ONCE ONE A/P Tramadol HCl 50 mg 11/18/17 23:43 Ultram - PO Q12H PRN PAIN 1-5 A/P 82 y/o patient who presented with rectal bleeding and was diagnosed with anal cancer admitted for C1 5- FU/mitomycin with RT Gentle hydration moitor labs discussed with primary team
[2017-11-19 07:47] LABS: BASO % 0.1 % (0-2.0); HEMATOCRIT 32.8 % (32.4-45.2); HEMOGLOBIN 11.3 GM/dL (10.7-15.3); LYMPH % 16.4 % (8-40); MCH 32.6 pg (25.7-33.7); MCHC 34.4 g/dl (32.0-36.0); MEAN CELL VOLUME 94.7 fl (80-96); MEAN PLT VOLUME 10.5 fl (7.5-11.1); MONO % 10.1 % (3.8-10.2); NEUT % 73.4 % (42.8-82.8); PLATELET COUNT 170 K/MM3 (134-434); RBC 3.46 M/mm3 (3.60-5.2); RDW 13.4 % (11.6-15.6); WHITE BLOOD COUNT 7.3 K/mm3 (4.0-10.0)
[2017-11-19 08:07] LABS: CHLORIDE 104 mmol/L (98-107); POTASSIUM 3.7 mmol/L (3.5-5.1); SODIUM 138 mmol/L (136-145)
[2017-11-19 08:32] LABS: ALK PHOS 54 U/L (45-117); ANION GAP 7 (8-16); BILIRUBIN,TOTAL 2.3 mg/dL (0.2-1.0); BLOOD UREA NITROGEN 18 mg/dL (7-18); CALCIUM 8.3 mg/dL (8.5-10.1); CO2 27 mmol/L (21-32); CREATININE 0.8 mg/dL (0.55-1.02); GLUCOSE,RANDOM 90 mg/dL (74-106); MAGNESIUM 1.8 mg/dL (1.8-2.4); PHOSPHOROUS 3.8 mg/dL (2.5-4.9); SGOT/AST 12 U/L (15-37); SGPT/ALT 10 U/L (12-78); TOT PROT 5.9 g/dl (6.4-8.2)
--- NOTE | 2017-11-19 08:47 | PN ---
Progress Note (short form) - Note Progress Note: Patient seen and examined Begun on chemotherapy with 5FU/Mitomycin Will have RT follow up. Last Vital Signs Temp Pulse Resp BP Pulse Ox 97.7 F 75 20 123/64 96 11/19/17 05:57 11/19/17 05:57 11/19/17 05:57 11/19/17 05:57 11/18/17 20:53 HEENT: LAISHA, EOM Intact Oropharynx: No thrush, No mucositis Anal ca Chemo/RTCor: RSR, No murmurs, No gallops Lungs: Clear to P&A Abd: Soft, Normal bowel sounds, No organomegaly Ext:No significant edema Skin: No rashes, Integument intact Current Medications Generic Name Dose Route Start Last Admin Trade Name Freq PRN Reason Stop Dose Admin Alprazolam 0.25 mg 11/18/17 14:07 11/18/17 22:46 Xanax - PO 0.25 mg BID PRN Administration ANXIETY Docusate Sodium 100 mg 11/18/17 14:07 11/19/17 07:47 Colace - PO 100 mg BID PRN Administration CONSTIPATION Fentanyl 25 mcg 11/18/17 09:54 Sublimaze Injection - IVPUSH [id number] PRN PAIN-PACU ORDER X 4 DOSES ONLY Heparin Sodium (Porcine) 5,000 unit 11/18/17 22:00 11/18/17 22:44 Heparin - SQ 5,000 unit BID JAKUB Administration Fluorouracil 1,225 mg/ Sodium 524.5 mls @ 21.854 mls/hr 11/18/17 09:00 15:23 Chloride IV 11/19/17 08:59 21.854 mls/hr ONCE ONE Administration Fluorouracil 1,225 mg/ Sodium 524.5 mls @ 21.854 mls/hr 11/19/17 15:00 Chloride IV 11/20/17 14:59 ONCE ONE Sodium Chloride 1,000 mls @ 75 mls/hr 11/18/17 19:00 11/18/17 22:45 Normal Saline - IV Not Given ASDIR JAKUB Fluorouracil 1,225 mg/ Sodium 524.5 mls @ 21.854 mls/hr 11/20/17 15:00 Chloride IV 11/21/17 14:59 ONCE ONE Tramadol HCl 50 mg 11/18/17 23:43 Ultram - PO Q12H PRN PAIN 1-5 Impression Anal ca Chemotherapy /RT Plan: treatment Hydration Repeat LFT's
[2017-11-19] MEDS: D5-1/2NS+20 MEQ KCL - 20 MEQ/1,000 ML INFUS.BAG IV SCH (09:04)
[2017-11-19] MEDS: ALPRAZolam 0.25 MG TABLET PO PRN (09:05)
[2017-11-19] MEDS: DOCUSATE SODIUM 100 MG CAPSULE (FP) PO SCH ×2 (09:59→22:44)
[2017-11-19] MEDS: ALPRAZolam 0.25 MG TABLET PO SCH ×2 (10:00→22:43)
--- NOTE | 2017-11-19 10:07 | PN ---
Progress Note (short form) - Note Progress Note: Subjective: The patient was seen and examined at the bedside, she is tearful. She did report constipation, but then had a bowel movement right after. Started chemo 5FU and Mitomycin yesterday Current Medications Generic Name Dose Route Start Last Admin Trade Name Shayneq PRN Reason Stop Dose Admin Alprazolam 0.25 mg 11/19/17 10:00 11/19/17 10:00 Xanax - PO Not Given BID JAKUB Docusate Sodium 100 mg 11/19/17 10:00 11/19/17 09:59 Colace - PO Not Given BID JAKUB Fentanyl 25 mcg 11/18/17 09:54 Sublimaze Injection - IVPUSH [id number] PRN PAIN-PACU ORDER X 4 DOSES ONLY Heparin Sodium (Porcine) 5,000 unit 11/18/17 22:00 11/18/17 22:44 Heparin - SQ 5,000 unit BID JAKUB Administration Fluorouracil 1,225 mg/ Sodium 524.5 mls @ 21.854 mls/hr 11/19/17 15:00 Chloride IV 11/20/17 14:59 ONCE ONE Fluorouracil 1,225 mg/ Sodium 524.5 mls @ 21.854 mls/hr 11/20/17 15:00 Chloride IV 11/21/17 14:59 ONCE ONE Potassium Chloride/Dextrose/Sod Cl 20 meq in 1,000 mls @ 42 mls/hr 11/19/17 09 :00 11/19/17 09:04 D5-1/2ns+20 Meq Kcl - IV 42 mls/hr ASDIR JAKUB Administration Tramadol HCl 50 mg 11/18/17 23:43 Ultram - PO Q12H PRN PAIN 1-5 Objective: Vital Signs Period Temp Pulse Resp BP Sys/Rao Pulse Ox Last 24 Hr 97.7 F-98.4 F 60-86 16-20 123-142/54-87 95-100 Physical Exam: General: NAD, A&Ox3, tearful Lungs: CTA bilaterally Heart: RRR, S1S2 Abd: Soft, non-tender Ext: Warm, well-perfused. 2+ DP/PT bilaterally Skin: Mediport in place CBCD WBC 7.3 K/mm3 (4.0-10.0) 11/19/17 06:00 RBC 3.46 M/mm3 (3.60-5.2) L 11/19/17 06:00 Hgb 11.3 GM/dL (10.7-15.3) D 11/19/17 06:00 Hct 32.8 % (32.4-45.2) D 11/19/17 06:00 MCV 94.7 fl (80-96) 11/19/17 06:00 MCHC 34.4 g/dl (32.0-36.0) 11/19/17 06:00 RDW 13.4 % (11.6-15.6) 11/19/17 06:00 Plt Count 170 K/MM3 (134-434) D 11/19/17 06:00 MPV 10.5 fl (7.5-11.1) 11/19/17 06:00 CMP Sodium 138 mmol/L (136-145) 11/19/17 06:00 Potassium 3.7 mmol/L (3.5-5.1) 11/19/17 06:00 Chloride 104 mmol/L (98-107) 11/19/17 06:00 Carbon Dioxide 27 mmol/L (21-32) 11/19/17 06:00 Anion Gap 7 (8-16) L 11/19/17 06:00 BUN 18 mg/dL (7-18) 11/19/17 06:00 Creatinine 0.8 mg/dL (0.55-1.02) 11/19/17 06:00 Creat Clearance w eGFR > 60 (>60) 11/19/17 06:00 Random Glucose 90 mg/dL (74-106) 11/19/17 06:00 Calcium 8.3 mg/dL (8.5-10.1) L 11/19/17 06:00 Total Bilirubin 2.3 mg/dL (0.2-1.0) H D 11/19/17 06:00 AST 12 U/L (15-37) L 11/19/17 06:00 ALT 10 U/L (12-78) L 11/19/17 06:00 Alkaline Phosphatase 54 U/L (45-117) 11/19/17 06:00 Total Protein 5.9 g/dl (6.4-8.2) L 11/19/17 06:00 Albumin 3.0 g/dl (3.4-5.0) L 11/19/17 06:00 Assessment: This is an 82 year old female with PMHx of HTN, anxiety, recently diagnosed with anal cancer (10/21/17), who had mediport placement today and is being admitted for initialization of chemotherapy. Plan: 1) Anal cancer - Chemo started on 11/18: Mitomycin and Flourouracil - Treatment per cardiology 2) Elevated total bilirubin - 2/2 chemo? - Will trend, if worsening tomorrow, will consider imaging 3) BENJAMIN - Resolved 4) Anxiety - Continue Xanax 5) HTN - Resume Lisinopril 6) F/E/N: - Monitor electrolytes - Sodium controlled diet 7) Prophylaxis: - OOB ambulating - Heparin 5,000u sq bid 8) Dispo: - Requires continued inpatient care CODE STATUS: FULL CODE Visit type - Emergency Visit Emergency Visit: Yes ED Registration Date: 11/18/17 Care time: The patient presented to the Emergency Department on the above date and was hospitalized for further evaluation of their emergent condition. - New Patient This patient is new to me today: No - Critical Care Critical Care patient: No
[2017-11-19] MEDS: HEPARIN NA (PORCINE) 5,000 UNITS/ML 1ML VIAL SQ SCH ×2 (11:30→22:43)
[2017-11-19] MEDS ORDERED: SODIUM CHLORIDE IV ONE (15:00)
[2017-11-19] MEDS ORDERED: FLUOROURACIL IV ONE (15:00)
[2017-11-19] MEDS ORDERED: PT OWN MED DRAWER 7, Y5N ONE (21:03)
[2017-11-20 07:43] LABS: BASO % 0.5 % (0-2.0); EOS % 1.1 % (0-4.5); HEMATOCRIT 31.2 % (32.4-45.2); HEMOGLOBIN 10.7 GM/dL (10.7-15.3); LYMPH % 26.2 % (8-40); MCH 32.6 pg (25.7-33.7); MCHC 34.1 g/dl (32.0-36.0); MEAN CELL VOLUME 95.6 fl (80-96); MEAN PLT VOLUME 10.8 fl (7.5-11.1); MONO % 9.1 % (3.8-10.2); NEUT % 63.1 % (42.8-82.8); PLATELET COUNT 170 K/MM3 (134-434); RBC 3.27 M/mm3 (3.60-5.2); RDW 13.7 % (11.6-15.6); WHITE BLOOD COUNT 5.5 K/mm3 (4.0-10.0)
[2017-11-20 08:20] LABS: CHLORIDE 105 mmol/L (98-107); SODIUM 140 mmol/L (136-145)
[2017-11-20 08:44] LABS: ALBUMIN 2.6 g/dl (3.4-5.0); ALK PHOS 49 U/L (45-117); ANION GAP 9 (8-16); BILIRUBIN,TOTAL 0.5 mg/dL (0.2-1.0); BLOOD UREA NITROGEN 18 mg/dL (7-18); CALCIUM 7.8 mg/dL (8.5-10.1); CO2 26 mmol/L (21-32); CREATININE 0.7 mg/dL (0.55-1.02); GLUCOSE,RANDOM 80 mg/dL (74-106); MAGNESIUM 1.8 mg/dL (1.8-2.4); SGOT/AST 19 U/L (15-37); SGPT/ALT 14 U/L (12-78); TOT PROT 5.4 g/dl (6.4-8.2)
[2017-11-20] MEDS: D5-1/2NS+20 MEQ KCL - 20 MEQ/1,000 ML INFUS.BAG IV SCH (09:51)
[2017-11-20] MEDS: HEPARIN NA (PORCINE) 5,000 UNITS/ML 1ML VIAL SQ SCH ×2 (09:51→21:06)
[2017-11-20] MEDS: DOCUSATE SODIUM 100 MG CAPSULE (FP) PO SCH ×3 (09:51→21:06)
[2017-11-20] MEDS: ALPRAZolam 0.25 MG TABLET PO SCH ×2 (09:51→21:06)
[2017-11-20] MEDS: LISINOPRIL 5 MG TABLET (FP) PO SCH (09:51)
--- NOTE | 2017-11-20 11:22 | PN ---
Progress Note (short form) - Note Progress Note: Radiation Oncology Pt seen, chart reviewed, consult dictated. 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 Pt agreed to concurrent chemoradiation therapy as potentially definitive therapy. Admitted for 1st course of chemo [facility]/5FU this week. She is tolerating the therapy so far. Minimal rectal bleeding from tumor. Some constipation though had diarrhea last week (before chemo). Will plan to start concurrent RT today and continue inpatient tx until she is discharged (anticipate Fri or Sat pending clinical course). Discussed with med onc.
--- NOTE | 2017-11-20 13:50 | PN ---
Progress Note (short form) - Note Progress Note: Subjective: The patient was seen and examined at the bedside, she has complaints of being constipated. Reminded patient of large BM yesterday and she reports she usually has her BM in the AM and it hasn't happened yet today. Has requested increasing colace to tid, will order Current Medications Generic Name Dose Route Start Last Admin Trade Name Aliyah PRN Reason Stop Dose Admin Alprazolam 0.25 mg 11/19/17 10:00 11/20/17 09:51 Xanax - PO 0.25 mg BID JAKUB Administration Docusate Sodium 100 mg 11/19/17 10:00 11/20/17 09:51 Colace - PO 100 mg BID JAKUB Administration Fentanyl 25 mcg 11/18/17 09:54 Sublimaze Injection - IVPUSH [id number] PRN PAIN-PACU ORDER X 4 DOSES ONLY Heparin Sodium (Porcine) 5,000 unit 11/18/17 22:00 11/20/17 09:51 Heparin - SQ 5,000 unit BID JAKUB Administration Fluorouracil 1,225 mg/ Sodium 524.5 mls @ 21.854 mls/hr 11/19/17 15:00 16:56 Chloride IV 11/20/17 14:59 21.854 mls/hr ONCE ONE Administration Fluorouracil 1,225 mg/ Sodium 524.5 mls @ 21.854 mls/hr 11/20/17 15:00 Chloride IV 11/21/17 14:59 ONCE ONE Potassium Chloride/Dextrose/Sod Cl 20 meq in 1,000 mls @ 42 mls/hr 11/19/17 09 :00 11/20/17 09:51 D5-1/2ns+20 Meq Kcl - IV 42 mls/hr ASDIR JAKUB Administration Fluorouracil 1,225 mg/ Sodium 524.5 mls @ 21.854 mls/hr 11/21/17 15:00 Chloride IV 11/22/17 14:59 ONCE ONE Lisinopril 5 mg 11/20/17 10:00 11/20/17 09:51 Prinivil PO 5 mg DAILY JAKUB Administration Tramadol HCl 50 mg 11/18/17 23:43 11/19/17 22:51 Ultram - PO 50 mg Q12H PRN Administration PAIN 1-5 Objective: Vital Signs Period Temp Pulse Resp BP Sys/Rao Pulse Ox Last 24 Hr 97.4 F-98.4 F 61-89 18-20 106-140/50-88 96-97 Physical Exam: General: NAD, A&Ox3, tearful Lungs: CTA bilaterally Heart: RRR, S1S2 Abd: Soft, non-tender Ext: Warm, well-perfused. 2+ DP/PT bilaterally Skin: Mediport in place CBCD WBC 5.5 K/mm3 (4.0-10.0) 11/20/17 06:45 RBC 3.27 M/mm3 (3.60-5.2) L 11/20/17 06:45 Hgb 10.7 GM/dL (10.7-15.3) 11/20/17 06:45 Hct 31.2 % (32.4-45.2) L 11/20/17 06:45 MCV 95.6 fl (80-96) 11/20/17 06:45 MCHC 34.1 g/dl (32.0-36.0) 11/20/17 06:45 RDW 13.7 % (11.6-15.6) 11/20/17 06:45 Plt Count 170 K/MM3 (134-434) 11/20/17 06:45 MPV 10.8 fl (7.5-11.1) 11/20/17 06:45 CMP Sodium 140 mmol/L (136-145) 11/20/17 06:45 Potassium 4.0 mmol/L (3.5-5.1) 11/20/17 06:45 Chloride 105 mmol/L (98-107) 11/20/17 06:45 Carbon Dioxide 26 mmol/L (21-32) 11/20/17 06:45 Anion Gap 9 (8-16) 11/20/17 06:45 BUN 18 mg/dL (7-18) 11/20/17 06:45 Creatinine 0.7 mg/dL (0.55-1.02) 11/20/17 06:45 Creat Clearance w eGFR > 60 (>60) 11/20/17 06:45 Random Glucose 80 mg/dL (74-106) 11/20/17 06:45 Calcium 7.8 mg/dL (8.5-10.1) L 11/20/17 06:45 Total Bilirubin 0.5 mg/dL (0.2-1.0) D 11/20/17 06:45 AST 19 U/L (15-37) 11/20/17 06:45 ALT 14 U/L (12-78) 11/20/17 06:45 Alkaline Phosphatase 49 U/L (45-117) 11/20/17 06:45 Total Protein 5.4 g/dl (6.4-8.2) L 11/20/17 06:45 Albumin 2.6 g/dl (3.4-5.0) L 11/20/17 06:45 Assessment: This is an 82 year old female with PMHx of HTN, anxiety, recently diagnosed with anal cancer (10/21/17), who had mediport placement today and is being admitted for initialization of chemotherapy. Plan: 1) Stage II SCC anal cancer - Chemo started on 11/18: Mitomycin and Flourouracil - To start radiation today - Treatment per cardiology 2) Elevated total bilirubin - Resolved 3) BENJAMIN - Resolved 4) Anxiety - Continue Xanax 5) HTN - Resume Lisinopril 6) F/E/N: - Monitor electrolytes - Sodium controlled diet 7) Prophylaxis: - OOB ambulating - Heparin 5,000u sq bid 8) Dispo: - Requires continued inpatient care CODE STATUS: FULL CODE Visit type - Emergency Visit Emergency Visit: Yes ED Registration Date: 11/18/17 Care time: The patient presented to the Emergency Department on the above date and was hospitalized for further evaluation of their emergent condition. - New Patient This patient is new to me today: No - Critical Care Critical Care patient: No
[2017-11-20] MEDS ORDERED: SODIUM CHLORIDE IV ONE (15:00)
[2017-11-20] MEDS ORDERED: FLUOROURACIL IV ONE (15:00)
--- NOTE | 2017-11-20 15:16 | PN ---
Progress Note (short form) - Note Progress Note: Last Vital Signs Patient seen and examined on chemotherapy with 5FU/Mitomycin went to RT ROS is negative Temp Pulse Resp BP Pulse Ox 97.8 F 64 20 143/66 96 11/20/17 15:09 11/20/17 15:09 11/20/17 15:09 11/20/17 15:09 11/20/17 09:00 CBC, BMP 11/20/17 06:45 11/20/17 06:45 Current Medications Generic Name Dose Route Start Last Admin Trade Name Freq PRN Reason Stop Dose Admin Alprazolam 0.25 mg 11/19/17 10:00 11/20/17 09:51 Xanax - PO 0.25 mg BID JAKUB Administration Docusate Sodium 100 mg 11/20/17 14:00 11/20/17 15:09 Colace - PO 100 mg TID JAKUB Administration Fentanyl 25 mcg 11/18/17 09:54 Sublimaze Injection - IVPUSH [id number] PRN PAIN-PACU ORDER X 4 DOSES ONLY Heparin Sodium (Porcine) 5,000 unit 11/18/17 22:00 11/20/17 09:51 Heparin - SQ 5,000 unit BID JAKUB Administration Fluorouracil 1,225 mg/ Sodium 524.5 mls @ 21.854 mls/hr 11/20/17 15:00 Chloride IV 11/21/17 14:59 ONCE ONE Potassium Chloride/Dextrose/Sod Cl 20 meq in 1,000 mls @ 42 mls/hr 11/19/17 09 :00 11/20/17 09:51 D5-1/2ns+20 Meq Kcl - IV 42 mls/hr ASDIR JAKUB Administration Fluorouracil 1,225 mg/ Sodium 524.5 mls @ 21.854 mls/hr 11/21/17 15:00 Chloride IV 11/22/17 14:59 ONCE ONE Lisinopril 5 mg 11/20/17 10:00 11/20/17 09:51 Prinivil PO 5 mg DAILY JAKUB Administration Tramadol HCl 50 mg 11/18/17 23:43 11/19/17 22:51 Ultram - PO 50 mg Q12H PRN Administration PAIN 1-5 HEENT: LAISHA, EOM Intact Oropharynx: No thrush, No mucositis Anal ca Chemo/RTCor: RSR, No murmurs, No gallops Lungs: Clear to P&A Abd: Soft, Normal bowel sounds, No organomegaly Ext:No significant edema Skin: No rashes, Integument intact Impression Anal ca Chemotherapy /RT Plan: 5FU/mitomycin D3 concurrent RT d/c likely saturday monitor le swelling next chemo would be around D29.around mid [place]
--- NOTE | 2017-11-20 16:41 | CONS ---
DATE OF CONSULTATION: 11/20/2017 REFERRING PHYSICIAN: Wilberto Oneil M.D. REASON FOR CONSULTATION: Concurrent radiation therapy for anal cancer. 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 Staging workup failed to demonstrate regional or distant metastases. She was discharged and has elected concurrent chemoradiation therapy, reserve abdominal perineal resection as an option if salvage therapy is needed for refractory/recurrent disease. She is admitted to commence 5FU and mitomycin C chemotherapy with radiation therapy. She reports no nausea, vomiting, abdominal pain. She had an episode of diarrhea last Saturday but now reports constipation. I am asked to evaluate and start her radiation therapy concurrently with the first cycle of chemotherapy. PAST MEDICAL HISTORY: Anxiety, hypertension, diverticulosis. No history of radiation therapy or inflammatory bowel disease. PAST SURGICAL HISTORY: Hysterectomy and right knee replacement. ALLERGIES: SULFA. CURRENT MEDICATIONS: Lisinopril, heparin subcutaneous, Xanax b.i.d., Colace, tramadol p.r.n., 5FU and mitomycin C yesterday, 5FU today through Saturday. SOCIAL HISTORY: She was born in [place]. She does not smoke or consume alcoholic beverages. FAMILY HISTORY: Father has leukemia. Sister had breast cancer. REVIEW OF SYSTEMS: No significant weight loss or change in appetite. Constipation is noted. Mild intermittent rectal bleeding which has been improving according to the patient. No incontinence, hematuria, or dysuria. PHYSICAL EXAMINATION: General: Well appearing elderly female in no acute distress. Vital Signs: Temperature 98.4, blood pressure 140/74, pulse 61, respiratory rate 20, Sao2 of 97% room air. HEENT: Moist mucous membranes. Anicteric sclerae. Clear oral cavity. Neck: No adenopathy. Chest: Lungs are clear. Cardiovascular: Regular. Abdomen: Soft, nontender. Nondistended without adenopathy. Extremities: No significant edema. Neurologic: Nonfocal. IMPRESSION: An 82-year-old woman with locally advanced squamous cell carcinoma of the anus at least stage II T2 N0 M0. She is a candidate for definitive treatment with concurrent chemoradiation therapy. She has commenced mitomycin C and 5FU and will proceed with concurrent radiation therapy, which is ready to begin. PLAN: Proceed with inpatient radiation therapy and complete first cycle of chemotherapy on Saturday. She will continue the radiation therapy as outpatient thereafter. We will plan 6 weeks of daily radiotherapy and 2nd cycle chemotherapy typically in the 5th week of treatment. I appreciate the opportunity to participate in the care of this vanesa patient. BETZAIDA DANIELS M.D. GARCÍA/[id number] MTDD
[2017-11-20] MEDS ORDERED: MAGNESIUM HYDROX 2400MG/30ML ORAL SUSPENSION 30 ML CUP PO ONE (19:45)
[2017-11-20] MEDS: ONDANSETRON 4 MG/2 ML VIAL IVPUSH PRN (23:45)
[2017-11-21] MEDS: DOCUSATE SODIUM 100 MG CAPSULE (FP) PO SCH ×3 (06:12→21:52)
[2017-11-21 07:32] LABS: HEMATOCRIT 31.7 % (32.4-45.2); HEMOGLOBIN 10.6 GM/dL (10.7-15.3); MCH 32.2 pg (25.7-33.7); MCHC 33.5 g/dl (32.0-36.0); MEAN CELL VOLUME 96.2 fl (80-96); MEAN PLT VOLUME 10.7 fl (7.5-11.1); PLATELET COUNT 153 K/MM3 (134-434); RBC 3.29 M/mm3 (3.60-5.2); RDW 13.4 % (11.6-15.6); WHITE BLOOD COUNT 5.1 K/mm3 (4.0-10.0)
[2017-11-21 07:59] LABS: ANION GAP 6 (8-16); BLOOD UREA NITROGEN 16 mg/dL (7-18); CALCIUM 7.9 mg/dL (8.5-10.1); CHLORIDE 106 mmol/L (98-107); CO2 27 mmol/L (21-32); GLUCOSE,RANDOM 89 mg/dL (74-106); POTASSIUM 4.2 mmol/L (3.5-5.1); SODIUM 139 mmol/L (136-145)
[2017-11-21 08:02] LABS: CREATININE 0.7 mg/dL (0.55-1.02)
[2017-11-21] MEDS: ALPRAZolam 0.25 MG TABLET PO SCH ×2 (09:18→21:52)
[2017-11-21] MEDS: ONDANSETRON 4 MG/2 ML VIAL IVPUSH PRN ×3 (09:18→21:56)
[2017-11-21] MEDS: LISINOPRIL 5 MG TABLET (FP) PO SCH (09:19)
[2017-11-21] MEDS: HEPARIN NA (PORCINE) 5,000 UNITS/ML 1ML VIAL SQ SCH ×2 (09:20→21:52)
--- NOTE | 2017-11-21 09:56 | PN ---
Physical Exam: SUBJECTIVE: Patient seen and examined at bedside. Just returned from radiation therapy across the street. Tolerated well. In good spirits. No problem accessing the port. Area around the port is slightly tender. Had large BM this morning that ended up watery. Tolerating food. Nauseous this morning, improved with Zofran. OBJECTIVE: Vital Signs Period Temp Pulse Resp BP Sys/Rao Pulse Ox Last 24 Hr 97.8 F-98.1 F 64-80 20-20 134-154/66-78 97 GENERAL: The patient is awake, alert, and fully oriented, in no acute distress. CHEST: Mediport right upper chest, surrounding area mildly swollen, ecchymotic, mildly tender LUNGS: Breath sounds equal, clear to auscultation bilaterally, no wwithout murmur, rub or gallop. ABDOMEN: Soft, nontender, nondistended, normoactive bowel sounds, no guarding, no rebound EXTREMITIES: 2+ pulses, warm, well-perfused. LLE 1+edema (chronic) NEUROLOGICAL: Cranial nerves II through XII grossly intact. Normal speech, gait not observed. PSYCH: Normal mood, normal affect. SKIN: Warm, dry, normal turgor Laboratory Results - last 24 hr 11/21/17 11/21/17 06:00 06:00 WBC 5.1 RBC 3.29 L Hgb 10.6 L Hct 31.7 L MCV 96.2 H MCH 32.2 MCHC 33.5 RDW 13.4 Plt Count 153 MPV 10.7 Sodium 139 Potassium 4.2 Chloride 106 Carbon Dioxide 27 Anion Gap 6 L BUN 16 Creatinine 0.7 Random Glucose 89 Calcium 7.9 L Active Medications Generic Name Dose Route Start Last Admin Trade Name Freq PRN Reason Stop Dose Admin Alprazolam 0.25 mg 11/19/17 10:00 11/21/17 09:18 Xanax - PO 0.25 mg BID JAKUB Administration Docusate Sodium 100 mg 11/20/17 14:00 11/21/17 06:12 Colace - PO 100 mg TID JAKUB Administration Fentanyl 25 mcg 11/18/17 09:54 Sublimaze Injection - IVPUSH [id number] PRN PAIN-PACU ORDER X 4 DOSES ONLY Heparin Sodium (Porcine) 5,000 unit 11/18/17 22:00 11/21/17 09:20 Heparin - SQ 5,000 unit BID JAKUB Administration Fluorouracil 1,225 mg/ Sodium 524.5 mls @ 21.854 mls/hr 11/20/17 15:00 17:45 Chloride IV 11/21/17 14:59 21.854 mls/hr ONCE ONE Administration Potassium Chloride/Dextrose/Sod Cl 20 meq in 1,000 mls @ 42 mls/hr 11/19/17 09 :00 11/20/17 09:51 D5-1/2ns+20 Meq Kcl - IV 42 mls/hr ASDIR JAKUB Administration Fluorouracil 1,225 mg/ Sodium 524.5 mls @ 21.854 mls/hr 11/21/17 15:00 Chloride IV 11/22/17 14:59 ONCE ONE Lisinopril 5 mg 11/20/17 10:00 11/21/17 09:19 Prinivil PO 5 mg DAILY JAKUB Administration Ondansetron HCl 4 mg 11/20/17 23:39 11/21/17 09:18 Zofran Injection IVPUSH 4 mg Q6H PRN Administration NAUSEA Pegfilgrastim 6 mg 11/23/17 08:00 Neulasta - SQ 11/23/17 08:01 ONCE ONE Tramadol HCl 50 mg 11/18/17 23:43 11/19/17 22:51 Ultram - PO 50 mg Q12H PRN Administration PAIN 1-5 ASSESSMENT/PLAN 82 year- old female with PMH significant for HTN, anxiety, recently diagnosed anal cancer (10/21/17), admitted for mediport placement and initiation of chemo and radiation therapy. Stage II SCC anal cancer --mediport placed 11/18 --chemo started 11/18: Mitomycin and Flourouracil --radiation markers placed 11/20 --radiation treatment 11/21 Elevated total bilirubin, resolved --likely aberrant lab value BENJAMIN, resolved Anxiety --continue Xanax Hypertension --BP stable --continue lisinopril FEN Fluids: D51/2+20K@42mL/hr Electrolytes: replete as indicated Nutrition: low sodium, Ensure Enlive, prune juice DVT prophylaxis: subq heparin, oob, ambulation Physical therapy Dispo: continues to require inpatient care. Full code. Visit type - Emergency Visit Emergency Visit: Yes ED Registration Date: 11/18/17 Care time: The patient presented to the Emergency Department on the above date and was hospitalized for further evaluation of their emergent condition. - New Patient This patient is new to me today: Yes Date on this admission: 11/21/17 - Critical Care Critical Care patient: No
[2017-11-21 10:38] LABS: ALBUMIN 2.7 g/dl (3.4-5.0); ALK PHOS 51 U/L (45-117); BILIRUBIN,TOTAL 0.5 mg/dL (0.2-1.0); SGOT/AST 32 U/L (15-37); SGPT/ALT 23 U/L (12-78); TOT PROT 5.4 g/dl (6.4-8.2)
[2017-11-21] MEDS ORDERED: PORTA CATH FLUSH 10 ML IVPUSH PRN (12:09)
--- NOTE | 2017-11-21 13:06 | PN ---
Progress Note (short form) - Note Progress Note: Patient seen and examined on chemotherapy with 5FU/Mitomycin started RT ROS is negative Temp Pulse Resp BP Pulse Ox 97.8 F 64 20 143/66 96 11/20/17 15:09 11/20/17 15:09 11/20/17 15:09 11/20/17 15:09 11/20/17 09:00 CBC, BMP 11/20/17 06:45 11/20/17 06:45 Current Medications Generic Name Dose Route Start Last Admin Trade Name Freq PRN Reason Stop Dose Admin Alprazolam 0.25 mg 11/19/17 10:00 11/20/17 09:51 Xanax - PO 0.25 mg BID JAKUB Administration Docusate Sodium 100 mg 11/20/17 14:00 11/20/17 15:09 Colace - PO 100 mg TID JAKUB Administration Fentanyl 25 mcg 11/18/17 09:54 Sublimaze Injection - IVPUSH [id number] PRN PAIN-PACU ORDER X 4 DOSES ONLY Heparin Sodium (Porcine) 5,000 unit 11/18/17 22:00 11/20/17 09:51 Heparin - SQ 5,000 unit BID JAKUB Administration Fluorouracil 1,225 mg/ Sodium 524.5 mls @ 21.854 mls/hr 11/20/17 15:00 Chloride IV 11/21/17 14:59 ONCE ONE Potassium Chloride/Dextrose/Sod Cl 20 meq in 1,000 mls @ 42 mls/hr 11/19/17 09 :00 11/20/17 09:51 D5-1/2ns+20 Meq Kcl - IV 42 mls/hr ASDIR JAKUB Administration Fluorouracil 1,225 mg/ Sodium 524.5 mls @ 21.854 mls/hr 11/21/17 15:00 Chloride IV 11/22/17 14:59 ONCE ONE Lisinopril 5 mg 11/20/17 10:00 11/20/17 09:51 Prinivil PO 5 mg DAILY JAKUB Administration Tramadol HCl 50 mg 11/18/17 23:43 11/19/17 22:51 Ultram - PO 50 mg Q12H PRN Administration PAIN 1-5 HEENT: LAISHA, EOM Intact Oropharynx: No thrush, No mucositis Anal ca Chemo/RTCor: RSR, No murmurs, No gallops Lungs: Clear to P&A Abd: Soft, Normal bowel sounds, No organomegaly Ext:No significant edema Skin: No rashes, Integument intact Impression Anal ca Chemotherapy /RT Plan: 5FU/mitomycin concurrent RT d/c likely saturday stop fluids monitor le swelling next chemo would be around D29.around mid november OP f.u in office next week RT to give RT schedule
--- NOTE | 2017-11-21 14:46 | PN ---
Progress Note (short form) - Note Progress Note: Radiation Oncology RT commenced. Tolerating concurrent therapy. Cont inpt RT and 5FU until Sat, then outpatient RT on Sat (closed on Sat for holiday). Monitor CBC.
[2017-11-21] MEDS ORDERED: SODIUM CHLORIDE IV ONE (15:00)
[2017-11-21] MEDS ORDERED: FLUOROURACIL IV ONE (15:00)
[2017-11-21] MEDS: D5-1/2NS+20 MEQ KCL - 20 MEQ/1,000 ML INFUS.BAG IV SCH (16:33)
[2017-11-22] MEDS: DOCUSATE SODIUM 100 MG CAPSULE (FP) PO SCH ×3 (05:50→22:40)
[2017-11-22 07:49] LABS: CHLORIDE 106 mmol/L (98-107); POTASSIUM 4.1 mmol/L (3.5-5.1); SODIUM 139 mmol/L (136-145)
[2017-11-22 07:52] LABS: BASO % 0.4 % (0-2.0); EOS % 2.5 % (0-4.5); HEMATOCRIT 31.3 % (32.4-45.2); HEMOGLOBIN 10.7 GM/dL (10.7-15.3); LYMPH % 19.5 % (8-40); MCH 32.5 pg (25.7-33.7); MCHC 34.1 g/dl (32.0-36.0); MEAN CELL VOLUME 95.3 fl (80-96); MEAN PLT VOLUME 11.3 fl (7.5-11.1); NEUT % 74.6 % (42.8-82.8); PLATELET COUNT 161 K/MM3 (134-434); RBC 3.28 M/mm3 (3.60-5.2); RDW 13.6 % (11.6-15.6); WHITE BLOOD COUNT 4.6 K/mm3 (4.0-10.0)
[2017-11-22 07:57] LABS: ALBUMIN 2.7 g/dl (3.4-5.0); ALK PHOS 51 U/L (45-117); ANION GAP 3 (8-16); BILIRUBIN,TOTAL 0.8 mg/dL (0.2-1.0); BLOOD UREA NITROGEN 15 mg/dL (7-18); CALCIUM 7.9 mg/dL (8.5-10.1); CO2 30 mmol/L (21-32); CREATININE 0.8 mg/dL (0.55-1.02); GLUCOSE,RANDOM 83 mg/dL (74-106); SGOT/AST 45 U/L (15-37); SGPT/ALT 35 U/L (12-78); TOT PROT 5.4 g/dl (6.4-8.2)
[2017-11-22] MEDS: LISINOPRIL 5 MG TABLET (FP) PO SCH (09:02)
[2017-11-22] MEDS: HEPARIN NA (PORCINE) 5,000 UNITS/ML 1ML VIAL SQ SCH ×2 (09:02→22:41)
[2017-11-22] MEDS: ALPRAZolam 0.25 MG TABLET PO SCH ×2 (09:02→22:41)
--- NOTE | 2017-11-22 14:15 | PN ---
Progress Note (short form) - Note Progress Note: Patient seen and examined on chemotherapy with 5FU/Mitomycin started RT ROS is negative Last Vital Signs Temp Pulse Resp BP Pulse Ox 98.4 F 90 20 129/53 97 11/22/17 10:00 11/22/17 10:00 11/22/17 11:00 11/22/17 10:00 11/22/17 11:00 CBC, BMP 11/22/17 06:00 11/22/17 06:00 Current Medications Generic Name Dose Route Start Last Admin Trade Name Freq PRN Reason Stop Dose Admin Alprazolam 0.25 mg 11/19/17 10:00 11/22/17 09:02 Xanax - PO 0.25 mg BID JAKUB Administration Docusate Sodium 100 mg 11/20/17 14:00 11/22/17 13:58 Colace - PO 100 mg TID JAKUB Administration Fentanyl 25 mcg 11/18/17 09:54 Sublimaze Injection - IVPUSH [id number] PRN PAIN-PACU ORDER X 4 DOSES ONLY Heparin Sodium (Porcine) 5,000 unit 11/18/17 22:00 11/22/17 09:02 Heparin - SQ 5,000 unit BID JAKUB Administration IV Flush 10 ml 11/21/17 12:09 Noble-Cath Flush IVPUSH PRN PRN port-acath flush Fluorouracil 1,225 mg/ Sodium 524.5 mls @ 21.854 mls/hr 11/21/17 15:00 18:54 Chloride IV 11/22/17 14:59 21.854 mls/hr ONCE ONE Administration Lisinopril 5 mg 11/20/17 10:00 11/22/17 09:02 Prinivil PO 5 mg DAILY JAKUB Administration Ondansetron HCl 4 mg 11/20/17 23:39 11/21/17 21:56 Zofran Injection IVPUSH 4 mg Q6H PRN Administration NAUSEA Pegfilgrastim 6 mg 11/23/17 08:00 Neulasta - SQ 11/23/17 08:01 ONCE ONE HEENT: LAISHA, EOM Intact Oropharynx: No thrush, No mucositis Anal ca Chemo/RTCor: RSR, No murmurs, No gallops Lungs: Clear to P&A Abd: Soft, Normal bowel sounds, No organomegaly Ext:No significant edema Skin: No rashes, Integument intact Impression Anal ca Chemotherapy /RT Plan: 5FU/mitomycin will complete tonight concurrent RT d/c in the am Pt to return on saturday for neulasta next chemo would be around D29.around mid november OP f.u in office next week (either Sat/),pt will be called. RT- next one on saturday as an OP
[2017-11-22] MEDS: ONDANSETRON 4 MG/2 ML VIAL IVPUSH PRN ×2 (15:59→22:45)
--- NOTE | 2017-11-22 17:22 | PN ---
Physical Exam: SUBJECTIVE: Patient seen and examined at bedside. Had radiation treatment earlier today tolerated well. Pre-treated with Zofran so no nausea. OBJECTIVE: Vital Signs Period Temp Pulse Resp BP Sys/Rao Pulse Ox Last 24 Hr 97.3 F-98.4 F 81-90 18-20 124-145/53-67 97-97 GENERAL: The patient is awake, alert, and fully oriented, in no acute distress. CHEST: Mediport right upper chest, surrounding area mildly swollen, ecchymotic, mildly tender LUNGS: Breath sounds equal, clear to auscultation bilaterally, no wwithout murmur, rub or gallop. ABDOMEN: Soft, nontender, nondistended, normoactive bowel sounds, no guarding, no rebound EXTREMITIES: 2+ pulses, warm, well-perfused. LLE 1+edema (chronic) NEUROLOGICAL: Cranial nerves II through XII grossly intact. Normal speech, gait not observed. PSYCH: Normal mood, normal affect. SKIN: Warm, dry, normal turgor Laboratory Results - last 24 hr 11/22/17 11/22/17 06:00 06:00 WBC 4.6 RBC 3.28 L Hgb 10.7 Hct 31.3 L MCV 95.3 MCH 32.5 MCHC 34.1 RDW 13.6 Plt Count 161 MPV 11.3 H Neutrophils % 74.6 Lymphocytes % 19.5 D Monocytes % 3.0 L Eosinophils % 2.5 D Basophils % 0.4 Nucleated RBC % 0 Sodium 139 Potassium 4.1 Chloride 106 Carbon Dioxide 30 Anion Gap 3 L BUN 15 Creatinine 0.8 Creat Clearance w eGFR > 60 Random Glucose 83 Calcium 7.9 L Total Bilirubin 0.8 D AST 45 H ALT 35 Alkaline Phosphatase 51 Total Protein 5.4 L Albumin 2.7 L Active Medications Generic Name Dose Route Start Last Admin Trade Name Freq PRN Reason Stop Dose Admin Alprazolam 0.25 mg 11/19/17 10:00 11/22/17 09:02 Xanax - PO 0.25 mg BID JAKUB Administration Docusate Sodium 100 mg 11/20/17 14:00 11/22/17 13:58 Colace - PO 100 mg TID JAKUB Administration Fentanyl 25 mcg 11/18/17 09:54 Sublimaze Injection - IVPUSH [id number] PRN PAIN-PACU ORDER X 4 DOSES ONLY Heparin Sodium (Porcine) 5,000 unit 11/18/17 22:00 11/22/17 09:02 Heparin - SQ 5,000 unit BID JAKUB Administration IV Flush 10 ml 11/21/17 12:09 Noble-Cath Flush IVPUSH PRN PRN port-acath flush Lisinopril 5 mg 11/20/17 10:00 11/22/17 09:02 Prinivil PO 5 mg DAILY JAKUB Administration Ondansetron HCl 4 mg 11/20/17 23:39 11/22/17 15:59 Zofran Injection IVPUSH 4 mg Q6H PRN Administration NAUSEA Pegfilgrastim 6 mg 11/24/17 08:00 Neulasta - SQ 11/24/17 08:01 ONCE ONE ASSESSMENT/PLAN 82 year- old female with PMH significant for HTN, anxiety, recently diagnosed anal cancer (10/21/17), admitted for mediport placement and initiation of chemo and radiation therapy. Stage II SCC anal cancer --mediport placed 11/18 --chemo started 11/18: Mitomycin and Flourouracil, will be completed tonight --radiation markers placed 11/20 --radiation treatment 11/21, 11/22 Elevated total bilirubin, resolved BENJAMIN, resolved Anxiety --continue Xanax Hypertension --BP stable --continue lisinopril FEN Fluids: PO intake adequate Electrolytes: replete as indicated Nutrition: low sodium, Ensure Enlive, prune juice DVT prophylaxis: subq heparin, oob, ambulation Physical therapy Dispo: --OK to d/c on Saturday, 11/23 --return on Saturday, 11/24 for neulasta --resume radiation therapy on Saturday, 11/26, as outpatient --next chemo will be around day 29 in mid November --outpatient followup with Dr. Damon next week, either Saturday or , patient will be called Full Code Visit type - Emergency Visit Emergency Visit: Yes ED Registration Date: 11/18/17 Care time: The patient presented to the Emergency Department on the above date and was hospitalized for further evaluation of their emergent condition. - New Patient This patient is new to me today: No - Critical Care Critical Care patient: No
[2017-11-22] MEDS ORDERED: traMADol HCL 50 MG TABLET PO ONE (22:39)
[2017-11-23] MEDS: DOCUSATE SODIUM 100 MG CAPSULE (FP) PO SCH (06:32)
--- NOTE | 2017-11-23 08:58 | DS ---
Physical Exam: HOSPITAL COURSE: Date of Admission:11/18/17 Date of Discharge: 11/23/17 82 year- old female with PMH significant for HTN, anxiety, recently diagnosed anal cancer (10/21/17), admitted for mediport placement and initiation of chemo and radiation therapy. Stage II SCC anal cancer --mediport placed 11/18 --chemo started 11/18: Mitomycin and Flourouracil, last dose 11/22 --radiation markers placed 11/20 --radiation treatment 11/21, 11/22 Elevated total bilirubin, resolved BENJAMIN, resolved Anxiety --continued Xanax Hypertension --BP stable --continue lisinopril FEN Fluids: PO intake was adequate Electrolytes: repleted as indicated Nutrition: low sodium, Ensure Enlive, prune juice DVT prophylaxis: subq heparin, oob, ambulation Physical therapy Dispo: --OK to d/c on Saturday, 11/23 --return on Saturday, 11/24 for neulasta --resume radiation therapy on Saturday, 11/26, as outpatient --next chemo will be around in mid November --outpatient followup with Dr. Damon next week, either Saturday or , patient will be called Minutes to complete discharge: 35 Discharge Summary Reason For Visit: ANAL CA Condition: Stable - Instructions Diet, Activity, Other Instructions: As discussed with Dr. Damon, this is your discharge plan: 1. Discharge to home today; 2. Return tomorrow, Friday 11/24 for a neulasta shot; 3. Resume radiation therapy on Saturday, 11/26; 4. Your next chemo will be in or about mid-November; 5. You will need to followup with Dr. Damon next week, either Saturday or , the office will call you to schedule an appointment. A prescription has been sent to your pharmacy for Zoan. Referrals: Makenzie Damon MD [Staff Physician] - Disposition: HOME - Home Medications Comprehensive Discharge Medication List: Ambulatory Orders Alprazolam [Xanax] 0.25 mg PO BID 10/18/17 Lisinopril 5 mg PO DAILY 10/18/17 Docusate Sodium [Colace -] 100 mg PO BID PRN #60 capsule 10/23/17 This patient is new to me today: No Emergency Visit: Yes ED Registration Date: 11/18/17 Care time: The patient presented to the Emergency Department on the above date and was hospitalized for further evaluation of their emergent condition. Critical Care patient: No - Discharge Referral Referred to [facility] No
[2017-11-23] MEDS: LISINOPRIL 5 MG TABLET (FP) PO SCH (10:28)
[2017-11-23] MEDS: HEPARIN NA (PORCINE) 5,000 UNITS/ML 1ML VIAL SQ SCH (10:28)
[2017-11-23] MEDS: ALPRAZolam 0.25 MG TABLET PO SCH (10:28)
--- NOTE | 2017-11-23 10:29 | PN ---
Progress Note (short form) - Note Progress Note: Patient seen and examined on chemotherapy with 5FU/Mitomycin on RT +Loose BM +nausea Feels better overall Last Vital Signs Temp Pulse Resp BP Pulse Ox 99 F 81 18 101/55 95 11/23/17 05:40 11/23/17 05:40 11/23/17 05:40 11/23/17 05:40 11/22/17 21:00 CBC, BMP 11/22/17 06:00 11/22/17 06:00 Current Medications Generic Name Dose Route Start Last Admin Trade Name Freq PRN Reason Stop Dose Admin Alprazolam 0.25 mg 11/19/17 10:00 11/23/17 10:28 Xanax - PO 0.25 mg BID JAKUB Administration Docusate Sodium 100 mg 11/20/17 14:00 11/23/17 06:32 Colace - PO 100 mg TID JAKUB Administration Fentanyl 25 mcg 11/18/17 09:54 Sublimaze Injection - IVPUSH [id number] PRN PAIN-PACU ORDER X 4 DOSES ONLY Heparin Sodium (Porcine) 5,000 unit 11/18/17 22:00 11/23/17 10:28 Heparin - SQ 5,000 unit BID JAKUB Administration IV Flush 10 ml 11/21/17 12:09 11/22/17 22:41 Noble-Cath Flush IVPUSH 10 ml PRN PRN Administration port-acath flush Lisinopril 5 mg 11/20/17 10:00 11/23/17 10:28 Prinivil PO 5 mg DAILY JAKUB Administration Ondansetron HCl 4 mg 11/20/17 23:39 11/22/17 22:45 Zofran Injection IVPUSH 4 mg Q6H PRN Administration NAUSEA Pegfilgrastim 6 mg 11/24/17 08:00 Neulasta - SQ 11/24/17 08:01 ONCE ONE HEENT: LAISHA, EOM Intact Oropharynx: No thrush, No mucositis Anal ca Chemo/RTCor: RSR, No murmurs, No gallops Lungs: Clear to P&A Abd: Soft, Normal bowel sounds, No organomegaly Ext:No significant edema Skin: No rashes, Integument intact Impression Anal ca Chemotherapy /RT Plan: 5FU/mitomycin completed for OP RT since saturday Neulasta tomorrow D/c meds: Zofran prn , pt has immodium at home. advised on- watch for AEs, pt will call with concerns. next chemo would be around D29.around mid november OP f.u in office next week (either Sat/),pt will be called.
[2017-11-23 10:34] VITALS: BP 140/68; PULSE 74; TEMP 97.5
[2017-11-23] MEDS ORDERED: LOPERAMIDE HCL 2 MG CAPSULE PO ONE (10:45)
[2017-11-24] MEDS ORDERED: PEGFILGRASTIM 6 MG/0.6 ML DISP.SYRIN SQ ONE (08:00)
== END 2017-11-23 12:11 | disposition home or self-care (01) | DRG 847 ==
LOC: JASUSAT 06:21 → JASU-SURG 06:21 → J7W 12:50 → JASUSAT 12:51 → J7W 12:51
PROVIDERS: ADMIT Internal Medicine; ATTEND Nurse Practitioner Acute Care
PROC: B513ZZA Fluoroscopy of Right Jugular Veins, Guidance (ICD-10-PCS; 2017-11-18)
PROC: 3E04305 Introduction of Other Antineoplastic into Central Vein, Percutaneous Approach (ICD-10-PCS; 2017-11-18)
PROC: 05HM33Z Insertion of Infusion Device into Right Internal Jugular Vein, Percutaneous Approach (ICD-10-PCS; principal; 2017-11-18 08:00)
DX: Z51.11 Encounter for antineoplastic chemotherapy (principal); C21.0 Malignant neoplasm of anus, unspecified; N17.9 Acute kidney failure, unspecified; I10 Essential (primary) hypertension; F41.9 Anxiety disorder, unspecified
CPT/HCPCS: 36415; 71045-TC-FY; 76000-TC-FY; 80048; 80053; 83036; 83735; 84100; 84134; 85025; 85027; 94760; 96375; 96413; 96415; 97116-GP; 97161-GP; J1100; J1644; J2469

== ENCOUNTER 2017-11-26 11:03 | Inpatient (IN) | payer OTHER, MEDICARE ==
[2017-11-26] MEDS ORDERED: SODIUM CHLORIDE 500 ML IV STA (12:39)
[2017-11-26] MEDS ORDERED: ONDANSETRON 4 MG/2 ML VIAL IVPUSH ONE (12:42)
--- NOTE | 2017-11-26 12:47 | PDOC ---
History of Present Illness - General Chief Complaint: Weakness Stated Complaint: ca pt FATIGUE, DEHYDRATED Time Seen by Provider: 11/26/17 12:29 History Source: Patient Exam Limitations: No Limitations - History of Present Illness Initial Comments: 11/26/17 12:42 Patient is history 82F with history of HTN, anxiety and recent anal cancer diagnosis (d/c after receiving chemo 3 days ago) here today complaining of weakness. Her son describes her nearly passing out and being confused before going to radiation today, the physician at radiation told her to report to the ED. Patient reports nausea, chills, vomiting and diarrhea. Patient reports that she has not been able to tolerate PO. Denies fevers, chest pain, shortness of breath, abdominal pain, dysuria. Onc: Dr Oneil Past History - Past Medical History Allergies/Adverse Reactions: Allergies Allergy/AdvReac Type Severity Reaction Status Date / Time Sulfa (Sulfonamide Allergy Verified 11/26/17 11:06 Antibiotics) Home Medications: Ambulatory Orders Alprazolam [Xanax] 0.25 mg PO BID 10/18/17 Lisinopril 5 mg PO DAILY 10/18/17 Docusate Sodium [Colace -] 100 mg PO BID PRN #60 capsule 10/23/17 Ondansetron [Ondansetron Odt] 8 mg PO Q12H PRN #30 tab.rapdis 11/23/17 Anemia: No Asthma: No Cancer: Yes (ANAL CA) Cardiac Disorders: No CVA: No COPD: No CHF: No DVT: No Dementia: No Diabetes: No GI Disorders: No Disorders: No HTN: Yes Hypercholesterolemia: No Liver Disease: No Seizures: No Thyroid Disease: No - Surgical History Abdominal Surgery: Yes Appendectomy: No Cardiac Surgery: No Cholecystectomy: No Lung Surgery: No Neurologic Surgery: Yes (BACK SX) Orthopedic Surgery: Yes (RIGHT KNEE REPLACEMENT) - Suicide/Smoking/Psychosocial Hx Smoking History: Never smoked Have you smoked in the past 12 months: No Information on smoking cessation initiated: No Hx Alcohol Use: No Drug/Substance Use Hx: No Substance Use Type: None Hx Substance Use Treatment: No Review of Systems - Review of Systems Comments:: 11/26/17 12:47 GENERAL/CONSTITUTIONAL: No fever. Positive for chills, and weakness. HEAD, EYES, EARS, NOSE AND THROAT: No change in vision. Positive for sore throat. CARDIOVASCULAR: No chest pain or shortness of breath RESPIRATORY: No cough, wheezing, or hemoptysis. GASTROINTESTINAL: Positive for nausea, vomiting, diarrhea. GENITOURINARY: No dysuria, frequency, or change in urination. MUSCULOSKELETAL: No joint or muscle swelling or pain. No neck or back pain. SKIN: No rash NEUROLOGIC: No headache, vertigo, loss of consciousness, or change in strength/ sensation. HEMATOLOGIC/LYMPHATIC: No anemia, easy bleeding, or history of blood clots. ALLERGIC/IMMUNOLOGIC: No hives or skin allergy. *Physical Exam - Vital Signs Last Vital Signs Temp Pulse Resp BP Pulse Ox 98.6 F 87 18 110/52 100 11/26/17 11:07 11/26/17 11:07 11/26/17 11:07 11/26/17 11:07 11/26/17 11:07 - Physical Exam Comments: 11/26/17 12:49 GENERAL: Awake, alert, and fully oriented HEAD: No signs of trauma, normocephalic, atraumatic EYES: PERRLA, EOMI, sclera anicteric, conjunctiva clear ENT: Auricles normal inspection, hearing grossly normal, nares patent, oropharynx clear without exudates. Dry mucosa NECK: Normal ROM, supple, no lymphadenopathy, JVD, or masses LUNGS: No distress, speaks full sentences, clear to auscultation bilaterally HEART: Regular rate and rhythm, normal S1 and S2, no murmurs, rubs or gallops, peripheral pulses normal and equal bilaterally. ABDOMEN: Soft, nontender, normoactive bowel sounds. No guarding, no rebound. No masses EXTREMITIES: Normal inspection, Normal range of motion, no edema. No clubbing or cyanosis. NEUROLOGICAL: Cranial nerves II through XII grossly intact. Normal speech, no focal sensorimotor deficits SKIN: Warm, Dry, normal turgor, no rashes or lesions noted. ED Treatment Course - LABORATORY CBC & Chemistry Diagram: 11/26/17 12:00 11/26/17 12:00 - RADIOLOGY Radiology Studies Ordered: Category Date Time Status CHEST X-RAY PORTABLE* [RAD] Stat Radiology 11/26/17 12:40 Ordered Medical Decision Making - Medical Decision Making 11/26/17 12:49 Patient is an 82F with history of anal cancer on chemo, HTN, and anxiety here today complaining of weakness. Patient also having nausea, vomiting, diarrhea. Appears dehydrated. Reports that blood pressure was low at radiation facility. Vital signs stable and normal now. Will investigate for occult infection, also suspect for possible medication side effect. Will treat with fluids and zofran. Will evaluate with CXR, CBC, CMP, PT/INR, type and screen, ua, uc, troponin, ekg. 11/26/17 15:53 Laboratory Tests 11/26/17 11/26/17 11/26/17 12:00 12:00 12:00 WBC 20.1 H D Hgb 11.8 D Plt Count 100 L D INR 1.23 H BUN 24 H Creatinine 1.0 Troponin I 0.02 Urine Nitrite Ur Leukocyte Esterase 11/26/17 15:25 WBC Hgb Plt Count INR BUN Creatinine Troponin I Urine Nitrite Negative Ur Leukocyte Esterase Negative CBC shows leukocytosis, patient recently had neulasta. CMP reassuring. UA negative. Will admit for likely chemotherapy complication. *DC/Admit/Observation/Transfer Diagnosis at time of Disposition: Dehydration - Discharge Dispostion Condition at time of disposition: Stable Decision to Admit order: Yes - Referrals Referrals: Wilberto Oneil MD [Primary Care Provider] - - Patient Instructions - Post Discharge Activity
[2017-11-26] MEDS ORDERED: ONDANSETRON 4 MG/2 ML VIAL ONE (13:23)
[2017-11-26 13:36] LABS: BASO % 0.2 % (0-2.0); EOS % 0.3 % (0-4.5); HEMOGLOBIN 11.8 GM/dL (10.7-15.3); LYMPH % 1.7 % (8-40); MCHC 33.7 g/dl (32.0-36.0); MEAN CELL VOLUME 95.2 fl (80-96); MEAN PLT VOLUME 10.8 fl (7.5-11.1); MONO % 1.6 % (3.8-10.2); NEUT % 96.2 % (42.8-82.8); RBC 3.68 M/mm3 (3.60-5.2); RDW 13.1 % (11.6-15.6); WHITE BLOOD COUNT 20.1 K/mm3 (4.0-10.0)
--- NOTE | 2017-11-26 13:43 | PDOC ---
Attending Attestation - Resident Resident Name: Bashir Martin - ED Attending Attestation I have performed the following: I have examined & evaluated the patient, The case was reviewed & discussed with the resident, I agree w/resident's findings & plan - HPI HPI: 11/26/17 13:41 82-year-old female with rectal CA started on chemotherapy last week, undergoing radiation therapy presents with near syncopal episode on her way to radiation in the setting of minimal oral intake, diarrhea, and progressive generalized weakness and pain discharged 4 days ago. No fevers or chills, no cardiopulmonary complaints. - Physicial Exam PE: 11/26/17 13:42 Vitals are within normal limits Thin, dry mucosa Heart is regular with frequent premature beats Abdomen is soft and nontender - Medical Decision Making 11/26/17 13:42 82-year-old female with near syncope in the setting of recently starting chemotherapy and radiation treatment. Likely progressive decline and dehydration , rule out electrolyte abnormality/renal insufficiency, rule out severe anemia or neutropenia. Lower suspicion that this is primary cardiac etiology, will monitor on telemetry given the ectopic beats. labs, ua ivf ekg, cxr admit 11/26/17 16:36 wbc 20 after neulasta. Chem wnl, Cr 1. UA clear. proceed with admission, seen by onc team. Heart Score/ECG Review #1 ECG reviewed & interpreted by me at: 14:15 General ECG Interpretation: Sinus Rhythm (APC noted), Normal Rate (101), Normal Intervals (1st degree block with [place] 214), No acute ischemic changes
[2017-11-26 13:56] LABS: INR 1.23 (0.82-1.09); PROTHROMBIN TIME (PATIENT) 13.9 SEC (9.7-13.0)
[2017-11-26 14:01] LABS: PLATELET COUNT 100 K/MM3 (134-434)
[2017-11-26 14:22] LABS: ALBUMIN 3.3 g/dl (3.4-5.0); ANION GAP 14 (8-16); BLOOD UREA NITROGEN 24 mg/dL (7-18); CALCIUM 8.5 mg/dL (8.5-10.1); CHLORIDE 99 mmol/L (98-107); CO2 23 mmol/L (21-32); GLUCOSE,RANDOM 87 mg/dL (74-106); POTASSIUM 3.7 mmol/L (3.5-5.1); SODIUM 136 mmol/L (136-145)
[2017-11-26 14:28] LABS: ALK PHOS 71 U/L (45-117); BILIRUBIN,TOTAL 0.7 mg/dL (0.2-1.0); SGOT/AST 18 U/L (15-37); SGPT/ALT 21 U/L (12-78); TOT PROT 6.6 g/dl (6.4-8.2)
[2017-11-26 14:32] LABS: PLATELET ESTIMATE DECREASED
[2017-11-26 15:40] LABS: URINE APPEARANCE CLEAR; URINE BILIRUBIN NEGATIVE (<2.0 mg/dL); URINE BLOOD 1+ (NEGATIVE); URINE COLOR YELLOW; URINE GLUCOSE (UA) NEGATIVE (NEGATIVE); URINE KETONE 1+ (NEGATIVE); URINE LEUK ESTERASE NEGATIVE (NEGATIVE); URINE NITRITE NEGATIVE (NEGATIVE); URINE PROTEIN NEGATIVE (NEGATIVE); URINE UROBILINOGEN NEGATIVE mg/dL (0.2-1.0)
--- NOTE | 2017-11-26 15:42 | PN ---
Progress Note (short form) - Note Progress Note: Pt with new diagnosis of anal ca. s/p Chemo (5FU/mitomycin) on concurrent RT s/p Neulasta over the weekend. Has appt tomorrow in the office. Now she is brought in to the ER with poor po intake, nausea, vomiting, near syncope Pt seen and examined in the ER ROS: +diarrhea,last episode this am +generalized weakness + poor appetite + painful swallowing. +mild rectal bleed Last Vital Signs Temp Pulse Resp BP Pulse Ox 98.6 F 87 18 111/46 97 11/26/17 11:07 11/26/17 14:37 11/26/17 14:37 11/26/17 14:37 11/26/17 14:37 CBC, BMP 11/26/17 12:00 11/26/17 12:00 Anal Cancer: s/p D1-D4 5FU/Mitomycin as of 11/22 s/p Neulasta On concurrent RT Poor PO intake/N/V/mucositis: IVF monitor Cr r/o UTI monitor lytes magic mouth wash Diarrhea: r/o infectious cause give imodium if above ruled out. PACs? cardiology eval CBC abn: chemo/s/p Neulasta monitor when downgraded from tele, Transfer to 7W hospitalist [employer] ATTENDANT
[2017-11-26 15:44] LABS: URINE MUCUS RARE
[2017-11-26] MEDS: SODIUM CHLORIDE 1,000 ML IV SCH (19:00)
--- NOTE | 2017-11-26 21:17 | HP ---
CHIEF COMPLAINT: PCP: HISTORY OF PRESENT ILLNESS: Patient is an 82 year old female with a significant past medical history of hypertension, anxiety and recent anal cancer diagnosis s/p chemo and Radiation. She presents to the ED today with a near syncope episode on her way to her second session of Radiation therapy. Her family at the bedside and state patient was about to pass out and was noted to be confused prior to RT. The physician at radiation therapy told her to report to the ED for further evaluation. Patient denies fever or chills, she endorses nausea and reports 6 episode of bilious vomiting at home, but no vomiting since. She states she had a few episodes of non bloody diarrhea at home. . Patient reports that she has not been able to tolerate PO. Denies fevers, chest pain, shortness of breath, abdominal pain, dysuria. ER course was notable for: (1) WBC 20.2 (2) (3) Recent Travel: PAST MEDICAL HISTORY: PAST SURGICAL HISTORY: Social History: Smoking: n/a Alcohol: n/a Drugs: n/a Family History: Allergies Sulfa (Sulfonamide Antibiotics) Allergy (Verified 11/26/17 11:06) HOME MEDICATIONS: Home Medications Medication Instructions Recorded Alprazolam [Xanax] 0.25 mg PO BID 10/18/17 Lisinopril 5 mg PO DAILY 10/18/17 Docusate Sodium [Colace -] 100 mg PO BID PRN #60 capsule 10/23/17 Ondansetron [Ondansetron Odt] 8 mg PO Q12H PRN #30 tab.rapdis 11/23/17 PHYSICAL EXAMINATION Vital Signs - 24 hr 11/26/17 11/26/17 11/26/17 11:07 14:37 19:46 Temperature 98.6 F Pulse Rate 87 Pulse Rate [ 87 78 Apical] Respiratory 18 18 14 Rate Blood Pressure 110/52 Blood Pressure 111/46 111/46 [Left Arm] O2 Sat by Pulse 100 97 100 Oximetry (%) GENERAL: Awake, alert, and fully oriented, in no acute distress. HEAD: Normal with no signs of trauma. EYES: Pupils equal, round and reactive to light, extraocular movements intact, sclera anicteric, conjunctiva clear. No lid lag. EARS, NOSE, THROAT: Ears normal, nares patent, oropharynx clear without exudates. Moist mucous membranes. NECK: Normal range of motion, supple without lymphadenopathy, JVD, or masses. LUNGS: Breath sounds equal, clear to auscultation bilaterally. No wheezes, and no crackles. No accessory muscle use. HEART: Regular rate and rhythm, normal S1 and S2 without murmur, rub or gallop. ABDOMEN: Soft, nontender, not distended, normoactive bowel sounds, MUSCULOSKELETAL: Normal range of motion at all joints. No bony deformities or tenderness. No CVA tenderness. UPPER EXTREMITIES: No clubbing. No peripheral edema. LOWER EXTREMITIES: trace edema on bilateral lower ext. NEUROLOGICAL: Cranial nerves II-XII intact. Normal speech. Normal gait. PSYCHIATRIC: Cooperative. Good eye contact. Appropriate mood and affect. SKIN: Warm, dry, normal turgor, no rashes or lesions noted, normal capillary refill. Laboratory Results - last 24 hr 11/26/17 11/26/17 11/26/17 12:00 12:00 12:00 WBC 20.1 H D RBC 3.68 Hgb 11.8 D Hct 35.0 MCV 95.2 MCH 32.0 MCHC 33.7 RDW 13.1 Plt Count 100 L D MPV 10.8 Neutrophils % 96.2 H D Neutrophils % (Manual) 91.8 H Band Neutrophils % 3.1 Lymphocytes % 1.7 L D Lymphocytes % (Manual) 3.1 L Monocytes % 1.6 L Monocytes % (Manual) 2 L Eosinophils % 0.3 D Eosinophils % (Manual) 0.0 Basophils % 0.2 Basophils % (Manual) 0.0 Myelocytes % (Man) 0 Promyelocytes % (Man) 0 Blast Cells % (Manual) 0 Nucleated RBC % 0 Metamyelocytes 0 Platelet Estimate Decreased PT with INR 13.90 H INR 1.23 H Sodium 136 Potassium 3.7 Chloride 99 Carbon Dioxide 23 Anion Gap 14 BUN 24 H Creatinine 1.0 Creat Clearance w eGFR 53.35 Random Glucose 87 Calcium 8.5 Magnesium 2.0 Total Bilirubin 0.7 AST 18 ALT 21 Alkaline Phosphatase 71 Creatine Kinase 25 L Troponin I 0.02 Total Protein 6.6 Albumin 3.3 L Urine Color Urine Appearance Urine pH Ur Specific [place] Urine Protein Urine Glucose (UA) Urine Ketones Urine Blood Urine Nitrite Urine Bilirubin Urine Urobilinogen Ur Leukocyte Esterase Urine WBC (Auto) Urine RBC (Auto) Urine Mucus Blood Type Antibody Screen 11/26/17 11/26/17 12:00 15:25 WBC RBC Hgb Hct MCV MCH MCHC RDW Plt Count MPV Neutrophils % Neutrophils % (Manual) Band Neutrophils % Lymphocytes % Lymphocytes % (Manual) Monocytes % Monocytes % (Manual) Eosinophils % Eosinophils % (Manual) Basophils % Basophils % (Manual) Myelocytes % (Man) Promyelocytes % (Man) Blast Cells % (Manual) Nucleated RBC % Metamyelocytes Platelet Estimate PT with INR INR Sodium Potassium Chloride Carbon Dioxide Anion Gap BUN Creatinine Creat Clearance w eGFR Random Glucose Calcium Magnesium Total Bilirubin AST ALT Alkaline Phosphatase Creatine Kinase Troponin I Total Protein Albumin Urine Color Yellow Urine Appearance Clear Urine pH 6.0 Ur Specific [place] 1.016 Urine Protein Negative Urine Glucose (UA) Negative Urine Ketones 1+ H Urine Blood 1+ H Urine Nitrite Negative Urine Bilirubin Negative Urine Urobilinogen Negative Ur Leukocyte Esterase Negative Urine WBC (Auto) 1 Urine RBC (Auto) 4 Urine Mucus Rare Blood Type O POSITIVE Antibody Screen Negative ASSESSMENT/PLAN: Patient is an 82 year old female with a significant past medical history of hypertension, anxiety and recent anal cancer diagnosis s/p chemo and Radiation. She presents to the ED today with a near syncope episode on her way to her second session of Radiation therapy. Her family at the bedside and state patient was about to pass out and was noted to be confused prior to RT. The physician at radiation therapy told her to report to the ED for further evaluation. Patient denies fever or chills, she endorses nausea and reports 6 episode of bilious vomiting at home, but no vomiting since. She states she had a few episodes of non bloody diarrhea at home. . Patient reports that she has not been able to tolerate PO. Denies fevers, chest pain, shortness of breath, abdominal pain, dysuria. Syncope Pre-Syncope in the setting of recent chemo and RT therapy Hydration with NS Monitor on tele Rule out electrolyte abnormality with labs Troponins to rule out cardiac cause Echo Confusion, mental status at baseline No neuro deficits noted Monitor mental status ID: Leukocytosis Effects of Neulasta vs. infection Urine and blood cultures ordered Monitor vitals Monitor off antibiotics Card: Rule out ACS Trend trops Cardiology consult Monitor on tele Echo GI: Nausea/Vomiting Cdiff testing ordered Hold Immodium until Cdiff results Zofran PRN Hydrate Clear liquid diet F.E.N. Fluids MS @ 100/cc/hr Electrolyes: monitor Nutriton: clears Prophy: DVT: Heparin GI: Protonix Dietary consult to monitor poor PO intake and optimize caloric intake Physical therapy Hospitalist Screening - Colonoscopy Questionnaire Colonoscopy Questionnaire: Colonoscopy Questionnaire
[2017-11-26] MEDS ORDERED: ALPRAZolam 0.25 MG TABLET ONE (22:56)
[2017-11-26] MEDS ORDERED: HEPARIN NA (PORCINE) 5,000 UNITS/ML 1ML VIAL ONE (22:56)
[2017-11-26] MEDS: MAG HYDROX/ALH/SMC/DPHA/LIDO 240 ML MOUTHWASH MM SCH (23:00)
[2017-11-26] MEDS: HEPARIN NA (PORCINE) 5,000 UNITS/ML 1ML VIAL SQ SCH (23:00)
[2017-11-26] MEDS: ALPRAZolam 0.25 MG TABLET PO SCH (23:01)
--- NOTE | 2017-11-27 07:53 | CON.CARD ---
Consult Consult Specialty:: Cardiology Reason for Consultation:: syncope - History of Present Illness History of Present Illness: 82-year-old female with rectal CA started on chemotherapy last week, undergoing radiation therapy presents with near syncopal episode on her way to radiation in the setting of minimal oral intake, diarrhea, and progressive generalized weakness and pain discharged 4 days ago. No fevers or chills, no cardiopulmonary complaints. 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 Home Medications - Allergies Allergies/Adverse Reactions: Allergies Allergy/AdvReac Type Severity Reaction Status Date / Time Sulfa (Sulfonamide Allergy Verified 11/26/17 11:06 Antibiotics) - Home Medications Home Medications: Ambulatory Orders Alprazolam [Xanax] 0.25 mg PO BID 10/18/17 Lisinopril 5 mg PO DAILY 10/18/17 Docusate Sodium [Colace -] 100 mg PO BID PRN #60 capsule 10/23/17 Ondansetron [Ondansetron Odt] 8 mg PO Q12H PRN #30 tab.rapdis 11/23/17 Family Disease History - Family Disease History Family Disease History: CA: Father (leukemia), Sister (breast cancer), Other: Mother (alzheimer) Review of Systems - Review of Systems Constitutional: reports: Malaise, Weakness Eyes: reports: No Symptoms HENT: reports: No Symptoms Neck: reports: No Symptoms Cardiovascular: reports: No Symptoms Gastrointestinal: reports: No Symptoms Genitourinary: reports: No Symptoms Breasts: reports: No Symptoms Reported Musculoskeletal: reports: No Symptoms Integumentary: reports: No Symptoms Neurological: reports: Syncope Endocrine: reports: No Symptoms Hematology/Lymphatic: reports: No Symptoms Psychiatric: reports: No Symptoms Vital Signs: Vital Signs Temperature 98.6 F 11/26/17 11:07 Pulse Rate 75 11/27/17 06:58 Respiratory Rate 16 11/27/17 06:58 Blood Pressure 100/45 11/27/17 06:58 O2 Sat by Pulse Oximetry (%) 100 11/27/17 06:58 Constitutional: Yes: Cachectic Eyes: Yes: WNL, Conjunctiva Clear, EOM Intact HENT: Yes: WNL, Atraumatic, Normocephalic Neck: Yes: WNL, Supple, Trachea Midline Respiratory: Yes: WNL, Regular, CTA Bilaterally Gastrointestinal: Yes: WNL, Normal Bowel Sounds Renal/: Yes: WNL Cardiovascular: Yes: WNL, Regular Rate and Rhythm Musculoskeletal: Yes: WNL Extremities: Yes: WNL Integumentary: Yes: WNL Neurological: Yes: WNL, Alert, Oriented ...Motor Strength: WNL Psychiatric: Yes: WNL, Alert, Oriented - Other Data Labs, Other Data: CBC, BMP 11/26/17 12:00 11/26/17 12:00 INR, PTT INR 1.23 (0.82-1.09) H 11/26/17 12:00 Troponin, BNP 11/26/17 11/26/17 12:00 21:20 Troponin I 0.02 0.03 Troponin, BNP 11/26/17 11/26/17 12:00 21:20 Troponin I 0.02 0.03 Imaging - Results Chest X-ray: Image Reviewed (mild cm) EKG: Image Reviewed (s tachy 1 st degree avb) Problem List - Problems (1) Dehydration Code(s): E86.0 - DEHYDRATION (2) Rectal bleeding Code(s): K62.5 - HEMORRHAGE OF ANUS AND RECTUM Assessment/Plan rectal ca s/p chemo leukocytosis syncope h/o htn Plan r/o mi echo telemetry c.duplex w/u for leukocytosis
[2017-11-27 08:44] LABS: BASO % 0.1 % (0-2.0); HEMATOCRIT 29.1 % (32.4-45.2); HEMOGLOBIN 9.7 GM/dL (10.7-15.3); LYMPH % 4.9 % (8-40); MCHC 33.5 g/dl (32.0-36.0); MEAN CELL VOLUME 95.6 fl (80-96); MEAN PLT VOLUME 10.8 fl (7.5-11.1); MONO % 4.2 % (3.8-10.2); NEUT % 89.8 % (42.8-82.8); RBC 3.04 M/mm3 (3.60-5.2); RDW 12.8 % (11.6-15.6); WHITE BLOOD COUNT 11.9 K/mm3 (4.0-10.0)
[2017-11-27 08:45] LABS: PLATELET COUNT 78 K/MM3 (134-434)
[2017-11-27 09:04] LABS: CHLORIDE 106 mmol/L (98-107); POTASSIUM 3.6 mmol/L (3.5-5.1); SODIUM 138 mmol/L (136-145)
--- NOTE | 2017-11-27 09:48 | EKG ---
Test Reason : Blood Pressure : / mmHG Vent. Rate : 101 BPM Atrial Rate : 101 BPM P-R Int : 214 ms QRS Dur : 072 ms QT Int : 356 ms P-R-T Axes : 084 034 035 degrees QTc Int : 461 ms SINUS TACHYCARDIA WITH 1ST DEGREE A-V BLOCK WITH OCCASIONAL PREMATURE VENTRICULAR COMPLEXES SEPTAL INFARCT , AGE UNDETERMINED ABNORMAL ECG WHEN COMPARED WITH ECG OF 18-OCT-2017 18:32, PREMATURE VENTRICULAR COMPLEXES ARE NOW PRESENT NONSPECIFIC T WAVE ABNORMALITY, WORSE IN INFERIOR LEADS Confirmed by ROSA ELENA PLUNKETT, JACINTA ([id number]) on 11/27/2017 9:47:43 AM Referred By: Confirmed By:JACINTA CUBA MD
[2017-11-27 09:52] LABS: ALBUMIN 2.7 g/dl (3.4-5.0); ALK PHOS 62 U/L (45-117); ANION GAP 7 (8-16); BILIRUBIN,TOTAL 0.5 mg/dL (0.2-1.0); BLOOD UREA NITROGEN 19 mg/dL (7-18); CALCIUM 7.6 mg/dL (8.5-10.1); CO2 25 mmol/L (21-32); CREATININE 0.8 mg/dL (0.55-1.02); GLUCOSE,RANDOM 78 mg/dL (74-106); MAGNESIUM 1.9 mg/dL (1.8-2.4); SGOT/AST 17 U/L (15-37); SGPT/ALT 15 U/L (12-78); TOT PROT 5.5 g/dl (6.4-8.2)
[2017-11-27 10:10] LABS: CHOLESTEROL 106 mg/dL (50-200); HDL CHOLESTEROL 47 mg/dL (40-60); TRIGLYCERIDES 64 mg/dL (35-160)
[2017-11-27] MEDS ORDERED: HEPARIN NA (PORCINE) 5,000 UNITS/ML 1ML VIAL ONE ×2 (10:33→14:14)
[2017-11-27] MEDS: HEPARIN NA (PORCINE) 5,000 UNITS/ML 1ML VIAL SQ SCH ×3 (10:36→21:53)
[2017-11-27] MEDS: ALPRAZolam 0.25 MG TABLET PO SCH ×2 (10:38→21:53)
[2017-11-27] MEDS ORDERED: ALPRAZolam 0.25 MG TABLET ONE (10:38)
[2017-11-27] MEDS ORDERED: PT OWN MED DRAWER 7, Y5N ONE ×2 (11:48→23:17)
[2017-11-27] MEDS: MAG HYDROX/ALH/SMC/DPHA/LIDO 240 ML MOUTHWASH MM SCH (11:49)
--- NOTE | 2017-11-27 15:30 | PN ---
Physical Exam: SUBJECTIVE: Patient seen and examined OBJECTIVE: Vital Signs Period Temp Pulse Resp BP Sys/Rao Pulse Ox Last 24 Hr 98.4 F-98.7 F 62-94 14-20 100-119/45-56 96-100 GENERAL: Awake, alert, and fully oriented, in no acute distress. HEAD: Normal with no signs of trauma. EYES: Pupils equal, round and reactive to light, extraocular movements intact, sclera anicteric, conjunctiva clear. No lid lag. EARS, NOSE, THROAT: Ears normal, nares patent, oropharynx clear without exudates. Moist mucous membranes. NECK: Normal range of motion, supple without lymphadenopathy, JVD, or masses. LUNGS: Breath sounds equal, clear to auscultation bilaterally. No wheezes, and no crackles. No accessory muscle use. HEART: Regular rate and rhythm, normal S1 and S2 without murmur, rub or gallop. ABDOMEN: Soft, nontender, not distended, normoactive bowel sounds, MUSCULOSKELETAL: Normal range of motion at all joints. No bony deformities or tenderness. No CVA tenderness. UPPER EXTREMITIES: No clubbing. No peripheral edema. LOWER EXTREMITIES: trace edema on bilateral lower ext. NEUROLOGICAL: Cranial nerves II-XII intact. Normal speech. Normal gait. PSYCHIATRIC: Cooperative. Good eye contact. Appropriate mood and affect. SKIN: Warm, dry, normal turgor, no rashes or lesions noted, normal capillary refill. Laboratory Results - last 24 hr 11/26/17 11/26/17 11/27/17 15:25 21:20 08:05 WBC 11.9 H D RBC 3.04 L Hgb 9.7 L D Hct 29.1 L D MCV 95.6 MCH 32.0 MCHC 33.5 RDW 12.8 Plt Count 78 L D MPV 10.8 Neutrophils % 89.8 H Lymphocytes % 4.9 L D Monocytes % 4.2 D Eosinophils % 1.0 D Basophils % 0.1 Nucleated RBC % 0 Sodium Potassium Chloride Carbon Dioxide Anion Gap BUN Creatinine Creat Clearance w eGFR Random Glucose Calcium Magnesium Total Bilirubin AST ALT Alkaline Phosphatase Troponin I 0.03 Total Protein Albumin Triglycerides Cholesterol Total LDL Cholesterol HDL Cholesterol Urine Color Yellow Urine Appearance Clear Urine pH 6.0 Ur Specific [place] 1.016 Urine Protein Negative Urine Glucose (UA) Negative Urine Ketones 1+ H Urine Blood 1+ H Urine Nitrite Negative Urine Bilirubin Negative Urine Urobilinogen Negative Ur Leukocyte Esterase Negative Urine WBC (Auto) 1 Urine RBC (Auto) 4 Urine Mucus Rare 11/27/17 11/27/17 11/27/17 08:05 08:05 08:08 WBC RBC Hgb Hct MCV MCH MCHC RDW Plt Count MPV Neutrophils % Lymphocytes % Monocytes % Eosinophils % Basophils % Nucleated RBC % Sodium 138 Potassium 3.6 Chloride 106 Carbon Dioxide 25 Anion Gap 7 L BUN 19 H Creatinine 0.8 Creat Clearance w eGFR > 60 Random Glucose 78 Calcium 7.6 L Magnesium 1.9 Total Bilirubin 0.5 D AST 17 ALT 15 Alkaline Phosphatase 62 Troponin I 0.02 Total Protein 5.5 L Albumin 2.7 L Triglycerides 64 Cancelled Cholesterol 106 Cancelled Total LDL Cholesterol 55 Cancelled HDL Cholesterol 47 Cancelled Urine Color Urine Appearance Urine pH Ur Specific [place] Urine Protein Urine Glucose (UA) Urine Ketones Urine Blood Urine Nitrite Urine Bilirubin Urine Urobilinogen Ur Leukocyte Esterase Urine WBC (Auto) Urine RBC (Auto) Urine Mucus Active Medications Generic Name Dose Route Start Last Admin Trade Name Shayneq PRN Reason Stop Dose Admin Alprazolam 0.25 mg 11/26/17 22:00 11/27/17 10:38 Xanax - PO 0.25 mg BID JAKUB Administration Heparin Sodium (Porcine) 5,000 unit 11/26/17 22:00 11/27/17 14:13 Heparin - SQ 5,000 unit TID JAKUB Administration Sodium Chloride 1,000 mls @ 100 mls/hr 11/26/17 18:45 11/26/17 19:00 Normal Saline - IV 100 mls/hr ASDIR JAKUB Administration Lidocaine/Aluminum/Magnesium/Simeth 5 ml 11/26/17 18:45 11/27/17 11:49 Magic Mouthwash *Sjr Formula* - MM 5 ml Q6HPO JAKUB Administration ASSESSMENT/PLAN: Patient is an 82 year old female with a significant past medical history of hypertension, anxiety and recent anal cancer diagnosis s/p chemo and Radiation. She presents to the ED today with a near syncope episode on her way to her second session of Radiation therapy. Her family at the bedside and state patient was about to pass out and was noted to be confused prior to RT. The physician at radiation therapy told her to report to the ED for further evaluation. Patient denies fever or chills, she endorses nausea and reports 6 episode of bilious vomiting at home, but no vomiting since. She states she had a few episodes of non bloody diarrhea at home. . Patient reports that she has not been able to tolerate PO. Denies fevers, chest pain, shortness of breath, abdominal pain, dysuria. Syncope Pre-Syncope in the setting of recent chemo and RT therapy Hydration with NS Monitor vitals Rule out electrolyte abnormality with labs Troponins negative x 3 Echo Doppler study reviewed Metabolic encephalopathy, resolved No neuro deficits noted Monitor mental status ID: Leukocytosis Effects of Neulasta vs. infection Urine and blood cultures ordered Monitor vitals Monitor off antibiotics Card: Rule out ACS Trend trops Cardiology consult Echo GI: Nausea/Vomiting Cdiff testing ordered Hold Immodium until Cdiff results Zofran PRN Hydrate No obstruction on abdominal xray F.E.N. Fluids MS @ 100/cc/hr Electrolyes: monitor Nutriton: clears Prophy: DVT: Heparin GI: Protonix Dietary consult to monitor poor PO intake and optimize caloric intake Physical therapy
--- NOTE | 2017-11-27 18:00 | PN ---
Progress Note (short form) - Note Progress Note: seen and examined in the er. ROS: feels better than yesterday able to eat a bit today diarrhea ,mild HEENT: LAISHA, EOM Intact Oropharynx: No thrush +mucositis, dry mucous membranes Cor: RSR, No murmurs, No gallops Lungs: Clear to P&A Abd: Soft, Normal bowel sounds, No organomegaly Ext:No significant edema Skin: No rashes, Integument intact Temp Pulse Resp BP Pulse Ox 97.7 F 68 16 110/53 98 11/27/17 16:58 11/27/17 16:58 11/27/17 16:58 11/27/17 16:58 11/27/17 16:58 CBC, BMP 11/27/17 08:05 11/27/17 08:05 Current Medications Generic Name Dose Route Start Last Admin Trade Name Freq PRN Reason Stop Dose Admin Alprazolam 0.25 mg 11/26/17 22:00 11/27/17 10:38 Xanax - PO 0.25 mg BID JAKUB Administration Heparin Sodium (Porcine) 5,000 unit 11/26/17 22:00 11/27/17 14:13 Heparin - SQ 5,000 unit TID JAKUB Administration Sodium Chloride 1,000 mls @ 100 mls/hr 11/26/17 18:45 11/26/17 19:00 Normal Saline - IV 100 mls/hr ASDIR JAKUB Administration Lidocaine/Aluminum/Magnesium/Simeth 5 ml 11/26/17 18:45 11/27/17 11:49 Magic Mouthwash *Sjr Formula* - MM 5 ml Q6HPO JAKUB Administration Anal Cancer: s/p D1-D4 5FU/Mitomycin as of 11/22 s/p Neulasta monitor CBC. On concurrent RT, hold vs ?inpt Rt Poor PO intake/N/V/mucositis: IVF monitor Cr r/o UTI monitor lytes magic mouth wash Diarrhea: r/o infectious cause give imodium if above ruled out. CBC abn: chemo/s/p Neulasta monitor
[2017-11-27] MEDS: SODIUM CHLORIDE 1,000 ML IV SCH (19:19)
[2017-11-27 20:58] VITALS: BMI 26.1
[2017-11-28] MEDS: MAG HYDROX/ALH/SMC/DPHA/LIDO 240 ML MOUTHWASH MM SCH ×4 (00:03→17:06)
[2017-11-28] MEDS: HEPARIN NA (PORCINE) 5,000 UNITS/ML 1ML VIAL SQ SCH ×3 (06:33→22:26)
[2017-11-28] MEDS: SODIUM CHLORIDE 1,000 ML IV SCH ×2 (06:33→14:25)
[2017-11-28 07:28] LABS: BASO % 0.2 % (0-2.0); EOS % 1.9 % (0-4.5); HEMATOCRIT 30.6 % (32.4-45.2); HEMOGLOBIN 10.4 GM/dL (10.7-15.3); MCH 32.5 pg (25.7-33.7); MCHC 33.9 g/dl (32.0-36.0); MEAN PLT VOLUME 10.4 fl (7.5-11.1); MONO % 10.2 % (3.8-10.2); NEUT % 77.7 % (42.8-82.8); PLATELET COUNT 73 K/MM3 (134-434); RBC 3.19 M/mm3 (3.60-5.2); WHITE BLOOD COUNT 5.5 K/mm3 (4.0-10.0)
[2017-11-28 07:43] LABS: ALBUMIN 2.7 g/dl (3.4-5.0); ANION GAP 7 (8-16); BILIRUBIN,TOTAL 0.4 mg/dL (0.2-1.0); CALCIUM 7.7 mg/dL (8.5-10.1); CHLORIDE 105 mmol/L (98-107); CO2 27 mmol/L (21-32); GLUCOSE,RANDOM 87 mg/dL (74-106); MAGNESIUM 1.9 mg/dL (1.8-2.4); POTASSIUM 3.3 mmol/L (3.5-5.1); SGOT/AST 14 U/L (15-37); SGPT/ALT 17 U/L (12-78); SODIUM 139 mmol/L (136-145)
[2017-11-28 07:45] LABS: ALK PHOS 61 U/L (45-117); CREATININE 0.7 mg/dL (0.55-1.02); TOT PROT 5.3 g/dl (6.4-8.2)
[2017-11-28 07:52] LABS: BLOOD UREA NITROGEN 14 mg/dL (7-18)
[2017-11-28] MEDS: ALPRAZolam 0.25 MG TABLET PO SCH ×2 (09:28→22:26)
[2017-11-28] MEDS ORDERED: POTASSIUM CHLORIDE TABS 20 MEQ TABLET.ER (FP) PO ONE (10:00)
[2017-11-28] MEDS ORDERED: ONDANSETRON 4 MG/2 ML VIAL IVPUSH PRN (12:47)
--- NOTE | 2017-11-28 12:51 | PN ---
Progress Note (short form) - Note Progress Note: Ms. Marie is well known to us at [facility] as she is receiving chemoRT for a stage II (T2N0M0) anal cancer. She was admitted with dehydration and mucositis. She has nausea and has been unable to take oral nutrition or hydration. She appears dehydrated. No pallor or icterus. Chest is clear. Abdomen is soft and non-tender, non-distended. Impression: Dehydration and mucositis in elderly woman undergoing chemoRT for anal cancer. Plan: Will hold treatment at this time until she is improved, likely resuming Saturday if possible. D/W Nutrition and Hospitalist to resume IVF for nutrition and hydration.
--- NOTE | 2017-11-28 12:57 | PN ---
Progress Note, Physician Chief Complaint: Pt A&Ox3; no chest pain or palpitations ("they only happen when I get an anxiety attack"); no dizziness. History of Present Illness: Patient is history 82F with history of HTN, anxiety and recent anal cancer diagnosis (d/c after receiving chemo 3 days ago) here today complaining of weakness. Her son describes her nearly passing out and being confused before going to radiation today, the physician at radiation told her to report to the ED. Patient reports nausea, chills, vomiting and diarrhea. Patient reports that she has not been able to tolerate PO. Denies fevers, chest pain, shortness of breath, abdominal pain, dysuria. - Current Medication List Current Medications: Active Medications Alprazolam (Xanax -) 0.25 mg PO BID [facility] Last Admin: 11/28/17 09:28 Dose: 0.25 mg Heparin Sodium (Porcine) (Heparin -) 5,000 unit SQ TID [facility] Last Admin: 11/28/17 06:33 Dose: 5,000 unit Sodium Chloride (Normal Saline -) 1,000 mls @ 100 mls/hr IV ASDIR [facility] Last Admin: 11/28/17 06:33 Dose: Not Given Amino Acids (Clinimix -) 1,000 mls @ 84 mls/hr IV Q12H [facility] Lidocaine/Aluminum/Magnesium/Simeth (Magic Mouthwash *Sjr Formula* -) 5 ml MM Q6HPO [facility] Last Admin: 11/28/17 06:34 Dose: 5 ml Ondansetron HCl (Zofran Injection) 4 mg IVPUSH Q8H PRN PRN Reason: NAUSEA Sucralfate (Carafate Oral Suspension -) 1 gm PO BID [facility] - Objective Vital Signs: Vital Signs Temperature 98.7 F 11/28/17 09:00 Pulse Rate 76 11/28/17 09:00 Respiratory Rate 18 11/28/17 09:00 Blood Pressure 118/54 11/28/17 09:00 O2 Sat by Pulse Oximetry (%) 96 11/28/17 09:00 Constitutional: Yes: Calm Eyes: Yes: WNL HENT: Yes: WNL Neck: Yes: WNL Cardiovascular: Yes: Regular Rate and Rhythm Respiratory: Yes: Regular Gastrointestinal: Yes: Soft ...Rectal Exam: Yes: Deferred Genitourinary: No: Anuria Breast(s): Yes: WNL Musculoskeletal: Yes: Muscle Weakness Extremities: Yes: Cool Edema: No Peripheral Pulses WNL: Yes Integumentary: Yes: WNL Neurological: Yes: Alert, Oriented Psychiatric: Yes: Alert, Oriented Labs: CBC, BMP 11/28/17 06:00 11/28/17 06:00 INR, PTT INR 1.23 (0.82-1.09) H 11/26/17 12:00 Abnormal Lab Results 11/29/17 11/29/17 06:00 06:00 RBC 3.07 L Hgb 10.1 L Hct 29.3 L Plt Count 66 L Monocytes % 20.0 H D Potassium 3.4 L Calcium 7.7 L AST 14 L Total Protein 5.3 L Albumin 2.6 L - ....Imaging Chest X-ray: Image Reviewed (no significant acute changes; mild hilar fullness) Problem List - Problems (1) Anal cancer Assessment/Plan: oncology w/u in progress. Code(s): C21.0 - MALIGNANT NEOPLASM OF ANUS, UNSPECIFIED (2) Dehydration Assessment/Plan: ECHO : normal LVEF, notrmal chamberaizes. Encourage PO fluid intake. Improved BP; f/u orthostatic vital signs. Code(s): E86.0 - DEHYDRATION
[2017-11-28] MEDS ORDERED: AMINO ACIDS 4.25%/D5W 1,000 ML IV SCH (13:00)
[2017-11-28] MEDS: SUCRALFATE 1 GM/10 ML UNIT DOSE CUPS PO SCH ×2 (13:18→22:25)
--- NOTE | 2017-11-28 13:33 | PN ---
Progress Note (short form) - Note Progress Note: seen and examined in the er. ROS: about the same as yesterday HEENT: LAISHA, EOM Intact Oropharynx: No thrush +mucositis, dry mucous membranes Cor: RSR, No murmurs, No gallops Lungs: Clear to P&A Abd: Soft, Normal bowel sounds, No organomegaly Ext:No significant edema Skin: No rashes, Integument intact Temp Pulse Resp BP Pulse Ox 97.7 F 68 16 110/53 98 11/27/17 16:58 11/27/17 16:58 11/27/17 16:58 11/27/17 16:58 11/27/17 16:58 CBC, BMP 11/27/17 08:05 11/27/17 08:05 Current Medications Generic Name Dose Route Start Last Admin Trade Name Freq PRN Reason Stop Dose Admin Alprazolam 0.25 mg 11/26/17 22:00 11/27/17 10:38 Xanax - PO 0.25 mg BID JAKUB Administration Heparin Sodium (Porcine) 5,000 unit 11/26/17 22:00 11/27/17 14:13 Heparin - SQ 5,000 unit TID JAKUB Administration Sodium Chloride 1,000 mls @ 100 mls/hr 11/26/17 18:45 11/26/17 19:00 Normal Saline - IV 100 mls/hr ASDIR JAKUB Administration Lidocaine/Aluminum/Magnesium/Simeth 5 ml 11/26/17 18:45 11/27/17 11:49 Magic Mouthwash *Sjr Formula* - MM 5 ml Q6HPO JAKUB Administration Anal Cancer: s/p D1-D4 5FU/Mitomycin as of 11/22 s/p Neulasta monitor CBC. appreciate RT input Poor PO intake/N/V/mucositis: IVF monitor Cr monitor lytes magic mouth wash ADD nystatin today Diarrhea: No further diarrhea CBC abn: chemo/s/p Neulasta monitor h/o PACs: appreciate cardiology c/s PT eval.
--- NOTE | 2017-11-28 14:44 | PN ---
Physical Exam: SUBJECTIVE: Patient seen and examined at the bedside. Feels better today, appetite improving. OBJECTIVE: RT on hold until her symptoms improve Discussed with Dr. Marks Vital Signs Period Temp Pulse Resp BP Sys/Rao Pulse Ox Last 24 Hr 97.7 F-99.1 F 68-95 16-20 99-132/46-86 96-98 GENERAL: Awake, alert, and fully oriented, in no acute distress. HEAD: Normal with no signs of trauma. EYES: Pupils equal, round and reactive to light, extraocular movements intact, sclera anicteric, conjunctiva clear. No lid lag. EARS, NOSE, THROAT: Ears normal, nares patent, oropharynx clear without exudates. Moist mucous membranes. NECK: Normal range of motion, supple without lymphadenopathy, JVD, or masses. LUNGS: Breath sounds equal, clear to auscultation bilaterally. No wheezes, and no crackles. No accessory muscle use. HEART: Regular rate and rhythm, normal S1 and S2 without murmur, rub or gallop. ABDOMEN: Soft, nontender, not distended, normoactive bowel sounds, MUSCULOSKELETAL: Normal range of motion at all joints. No bony deformities or tenderness. No CVA tenderness. UPPER EXTREMITIES: No clubbing. No peripheral edema. LOWER EXTREMITIES: trace edema on bilateral lower ext. NEUROLOGICAL: Cranial nerves II-XII intact. Normal speech. Normal gait. PSYCHIATRIC: Cooperative. Good eye contact. Appropriate mood and affect. SKIN: Warm, dry, normal turgor, no rashes or lesions noted, normal capillary refill. Laboratory Results - last 24 hr 11/28/17 11/28/17 06:00 06:00 WBC 5.5 D RBC 3.19 L Hgb 10.4 L Hct 30.6 L MCV 96.0 MCH 32.5 MCHC 33.9 RDW 13.0 Plt Count 73 L MPV 10.4 Neutrophils % 77.7 Lymphocytes % 10.0 D Monocytes % 10.2 D Eosinophils % 1.9 D Basophils % 0.2 Nucleated RBC % 0 Sodium 139 Potassium 3.3 L Chloride 105 Carbon Dioxide 27 Anion Gap 7 L BUN 14 Creatinine 0.7 Creat Clearance w eGFR > 60 Random Glucose 87 Calcium 7.7 L Magnesium 1.9 Total Bilirubin 0.4 AST 14 L ALT 17 Alkaline Phosphatase 61 Total Protein 5.3 L Albumin 2.7 L Active Medications Generic Name Dose Route Start Last Admin Trade Name Freq PRN Reason Stop Dose Admin Alprazolam 0.25 mg 11/28/17 10:00 11/28/17 09:28 Xanax - PO 0.25 mg BID JAKUB Administration Heparin Sodium (Porcine) 5,000 unit 11/28/17 06:00 11/28/17 13:18 Heparin - SQ 5,000 unit TID JAKUB Administration Sodium Chloride 1,000 mls @ 100 mls/hr 11/28/17 02:23 11/28/17 06:33 Normal Saline - IV Not Given ASDIR JAKUB Sodium Chloride 1,000 mls @ 42 mls/hr 11/28/17 13:45 11/28/17 14:25 Normal Saline - IV 42 mls/hr ASDIR JAKUB Administration Lidocaine/Aluminum/Magnesium/Simeth 5 ml 11/28/17 06:00 11/28/17 13:24 Magic Mouthwash *Sjr Formula* - MM 5 ml Q6HPO JAKUB Administration Nystatin 500,000 units 11/28/17 18:00 Nystatin Oral Suspension - PO Q6HPO JAKUB Ondansetron HCl 4 mg 11/28/17 12:47 11/28/17 13:18 Zofran Injection IVPUSH 4 mg Q8H PRN Administration NAUSEA Sucralfate 1 gm 11/28/17 12:45 11/28/17 13:18 Carafate Oral Suspension - PO 1 gm BID JAKUB Administration ASSESSMENT/PLAN: Patient is an 82 year old female with a significant past medical history of hypertension, anxiety and recent anal cancer diagnosis s/p chemo and Radiation. She presents to the ED with a near syncope episode on her way to her second session of Radiation therapy. Syncope Pre-Syncope in the setting of recent chemo and RT therapy Hydration with NS Monitor vitals Rule out electrolyte abnormality with labs Troponins negative x 3 Echo Doppler study reviewed Metabolic encephalopathy, resolved No neuro deficits noted Monitor mental status ID: Leukocytosis, improving Effects of Neulasta vs. infection Urine and blood cultures ordered Monitor vitals Monitor off antibiotics GI: Nausea/Vomiting Cdiff testing ordered Hold Immodium until Cdiff results Zofran PRN Hydrate No obstruction on abdominal xray F.E.N. Fluids NS @ 42/cc/hr Electrolyes: monitor Nutriton: clears Prophy: DVT: Heparin GI: Protonix Dietary consult to monitor poor PO intake and optimize caloric intake Physical therapy Visit type - Emergency Visit Emergency Visit: Yes ED Registration Date: 11/26/17 Care time: The patient presented to the Emergency Department on the above date and was hospitalized for further evaluation of their emergent condition. - New Patient This patient is new to me today: No - Critical Care Critical Care patient: No - Discharge Referral Referred to [facility] Med P.C.: No
[2017-11-28] MEDS: NYSTATIN 500,000 UNITS/5 ML SUSPENSION PO SCH (17:05)
[2017-11-29] MEDS: NYSTATIN 500,000 UNITS/5 ML SUSPENSION PO SCH ×4 (00:22→17:45)
[2017-11-29] MEDS: MAG HYDROX/ALH/SMC/DPHA/LIDO 240 ML MOUTHWASH MM SCH ×4 (00:22→18:01)
[2017-11-29] MEDS: SODIUM CHLORIDE 1,000 ML IV SCH ×2 (03:00→14:25)
[2017-11-29] MEDS: HEPARIN NA (PORCINE) 5,000 UNITS/ML 1ML VIAL SQ SCH ×3 (06:25→21:56)
[2017-11-29 07:46] LABS: BASO % 0.3 % (0-2.0); EOS % 2.2 % (0-4.5); HEMATOCRIT 29.3 % (32.4-45.2); HEMOGLOBIN 10.1 GM/dL (10.7-15.3); LYMPH % 16.7 % (8-40); MCH 32.9 pg (25.7-33.7); MCHC 34.4 g/dl (32.0-36.0); MEAN CELL VOLUME 95.5 fl (80-96); MEAN PLT VOLUME 10.6 fl (7.5-11.1); NEUT % 60.8 % (42.8-82.8); PLATELET COUNT 66 K/MM3 (134-434); RBC 3.07 M/mm3 (3.60-5.2); RDW 12.9 % (11.6-15.6); WHITE BLOOD COUNT 4.2 K/mm3 (4.0-10.0)
[2017-11-29 08:33] LABS: CHLORIDE 106 mmol/L (98-107); POTASSIUM 3.4 mmol/L (3.5-5.1); SODIUM 139 mmol/L (136-145)
[2017-11-29 09:15] LABS: ALBUMIN 2.6 g/dl (3.4-5.0); ALK PHOS 61 U/L (45-117); ANION GAP 8 (8-16); BILIRUBIN,TOTAL 0.4 mg/dL (0.2-1.0); BLOOD UREA NITROGEN 11 mg/dL (7-18); CALCIUM 7.7 mg/dL (8.5-10.1); CO2 25 mmol/L (21-32); CREATININE 0.7 mg/dL (0.55-1.02); GLUCOSE,RANDOM 79 mg/dL (74-106); MAGNESIUM 1.9 mg/dL (1.8-2.4); SGOT/AST 14 U/L (15-37); SGPT/ALT 15 U/L (12-78); TOT PROT 5.3 g/dl (6.4-8.2)
[2017-11-29] MEDS: SUCRALFATE 1 GM/10 ML UNIT DOSE CUPS PO SCH ×2 (09:29→21:56)
[2017-11-29] MEDS: ALPRAZolam 0.25 MG TABLET PO SCH ×2 (09:29→21:56)
[2017-11-29] MEDS ORDERED: POTASSIUM CHLORIDE ORAL LIQUID 20 MEQ/15 ML PO ONE (10:30)
--- NOTE | 2017-11-29 12:15 | PN ---
Progress Note, Physician History of Present Illness: 82-year-old female with rectal CA started on chemotherapy last week, undergoing radiation therapy presents with near syncopal episode on her way to radiation in the setting of minimal oral intake, diarrhea, and progressive generalized weakness and pain discharged 4 days ago. No fevers or chills, no cardiopulmonary complaints. - Current Medication List Current Medications: Active Medications Alprazolam (Xanax -) 0.25 mg PO BID [facility] Last Admin: 11/29/17 09:29 Dose: 0.25 mg Heparin Sodium (Porcine) (Heparin -) 5,000 unit SQ TID [facility] Last Admin: 11/29/17 06:25 Dose: 5,000 unit Sodium Chloride (Normal Saline -) 1,000 mls @ 100 mls/hr IV ASDIR [facility] Last Admin: 11/29/17 03:00 Dose: Not Given Sodium Chloride (Normal Saline -) 1,000 mls @ 42 mls/hr IV ASDIR [facility] Last Admin: 11/28/17 14:25 Dose: 42 mls/hr Lidocaine/Aluminum/Magnesium/Simeth (Magic Mouthwash *Sjr Formula* -) 5 ml MM Q6HPO [facility] Last Admin: 11/29/17 11:28 Dose: 5 ml Nystatin (Nystatin Oral Suspension -) 500,000 units PO Q6HPO [facility] Last Admin: 11/29/17 11:28 Dose: 500,000 units Ondansetron HCl (Zofran Injection) 4 mg IVPUSH Q8H PRN PRN Reason: NAUSEA Last Admin: 11/28/17 13:18 Dose: 4 mg Sucralfate (Carafate Oral Suspension -) 1 gm PO BID [facility] Last Admin: 11/29/17 09:29 Dose: 1 gm - Objective Vital Signs: Vital Signs Temperature 98.2 F 11/29/17 09:00 Pulse Rate 87 11/29/17 09:00 Respiratory Rate 20 11/29/17 09:00 Blood Pressure 139/79 11/29/17 09:00 O2 Sat by Pulse Oximetry (%) 96 11/29/17 09:00 Eyes: Yes: WNL, Conjunctiva Clear, EOM Intact HENT: Yes: WNL, Atraumatic, Normocephalic Neck: Yes: WNL, Supple, Trachea Midline Cardiovascular: Yes: WNL, Regular Rate and Rhythm Respiratory: Yes: WNL, Regular, CTA Bilaterally Gastrointestinal: Yes: WNL, Normal Bowel Sounds Genitourinary: Yes: WNL Musculoskeletal: Yes: WNL Extremities: Yes: WNL Edema: No Integumentary: Yes: WNL Neurological: Yes: WNL, Alert, Oriented ...Motor Strength: WNL Psychiatric: Yes: WNL Labs: CBC, BMP 11/29/17 06:00 11/29/17 06:00 INR, PTT INR 1.23 (0.82-1.09) H 11/26/17 12:00 Problem List - Problems (1) Dehydration Code(s): E86.0 - DEHYDRATION (2) Rectal bleeding Code(s): K62.5 - HEMORRHAGE OF ANUS AND RECTUM Assessment/Plan - Problems (1) Anal cancer Assessment/Plan: oncology w/u in progress. Code(s): C21.0 - MALIGNANT NEOPLASM OF ANUS, UNSPECIFIED (2) Dehydration Assessment/Plan: ECHO : normal LVEF, notrmal chamberaizes. Encourage PO fluid intake. Improved BP; f/u orthostatic vital signs. Code(s): E86.0 - DEHYDRATION
--- NOTE | 2017-11-29 13:44 | PN ---
Physical Exam: SUBJECTIVE: Patient seen and examined at the bedside. OBJECTIVE: Appetite improving, feels better today Will continue iv hydration Dietary following, pt tolerating supplements hypoK 3.4, replete with Potassium 20meq x 1 Vital Signs Period Temp Pulse Resp BP Sys/Rao Pulse Ox Last 24 Hr 98.1 F-98.5 F 77-87 18-20 108-139/51-86 96-96 GENERAL: Awake, alert, and fully oriented, in no acute distress. HEAD: Normal with no signs of trauma. EYES: Pupils equal, round and reactive to light, extraocular movements intact, sclera anicteric, conjunctiva clear. No lid lag. EARS, NOSE, THROAT: Ears normal, nares patent, oropharynx clear without exudates. Moist mucous membranes. NECK: Normal range of motion, supple without lymphadenopathy, JVD, or masses. LUNGS: Breath sounds equal, clear to auscultation bilaterally. No wheezes, and no crackles. No accessory muscle use. HEART: Regular rate and rhythm, normal S1 and S2 without murmur, rub or gallop. ABDOMEN: Soft, nontender, not distended, normoactive bowel sounds, MUSCULOSKELETAL: Normal range of motion at all joints. No bony deformities or tenderness. No CVA tenderness. UPPER EXTREMITIES: No clubbing. No peripheral edema. LOWER EXTREMITIES: trace edema on bilateral lower ext. NEUROLOGICAL: Normal speech. Normal gait. PSYCHIATRIC: Cooperative. Good eye contact. Appropriate mood and affect. SKIN: Warm, dry, normal turgor, no rashes or lesions noted, normal capillary refill. Laboratory Results - last 24 hr 11/29/17 11/29/17 06:00 06:00 WBC 4.2 RBC 3.07 L Hgb 10.1 L Hct 29.3 L MCV 95.5 MCH 32.9 MCHC 34.4 RDW 12.9 Plt Count 66 L MPV 10.6 Neutrophils % 60.8 D Lymphocytes % 16.7 D Monocytes % 20.0 H D Eosinophils % 2.2 Basophils % 0.3 Nucleated RBC % 0 Sodium 139 Potassium 3.4 L Chloride 106 Carbon Dioxide 25 Anion Gap 8 BUN 11 Creatinine 0.7 Creat Clearance w eGFR > 60 Random Glucose 79 Calcium 7.7 L Magnesium 1.9 Total Bilirubin 0.4 AST 14 L ALT 15 Alkaline Phosphatase 61 Total Protein 5.3 L Albumin 2.6 L Active Medications Generic Name Dose Route Start Last Admin Trade Name Freq PRN Reason Stop Dose Admin Alprazolam 0.25 mg 11/28/17 10:00 11/29/17 09:29 Xanax - PO 0.25 mg BID JAKUB Administration Heparin Sodium (Porcine) 5,000 unit 11/28/17 06:00 11/29/17 06:25 Heparin - SQ 5,000 unit TID JAKUB Administration Sodium Chloride 1,000 mls @ 100 mls/hr 11/28/17 02:23 11/29/17 03:00 Normal Saline - IV Not Given ASDIR JAKUB Sodium Chloride 1,000 mls @ 42 mls/hr 11/28/17 13:45 11/28/17 14:25 Normal Saline - IV 42 mls/hr ASDIR JAKUB Administration Lidocaine/Aluminum/Magnesium/Simeth 5 ml 11/28/17 06:00 11/29/17 11:28 Magic Mouthwash *Sjr Formula* - MM 5 ml Q6HPO JAKUB Administration Nystatin 500,000 units 11/28/17 18:00 11/29/17 11:28 Nystatin Oral Suspension - PO 500,000 units Q6HPO JAKUB Administration Ondansetron HCl 4 mg 11/28/17 12:47 11/28/17 13:18 Zofran Injection IVPUSH 4 mg Q8H PRN Administration NAUSEA Sucralfate 1 gm 11/28/17 12:45 11/29/17 09:29 Carafate Oral Suspension - PO 1 gm BID JAKUB Administration ASSESSMENT/PLAN: Patient is an 82 year old female with a significant past medical history of hypertension, anxiety and recent anal cancer diagnosis s/p chemo and Radiation. She presents to the ED with a near syncope episode on her way to her second session of Radiation therapy. Syncope: Syncope, likely secondary to dehydration in the setting of recent chemo and RT Hydration with NS Not orthostatic Troponins negative x 3 Echo reviewed Doppler study reviewed Metabolic encephalopathy, resolved No neuro deficits noted Mucocytis On Carafate, Magic MM, Nystatin ID: Leukocytosis, resolved No signs of infection, no fevers, vitals stable Blood and urine cultures negative, c diff negative Oncology: Anal cancer Treatment per oncology RT on hold until symptoms improved GI: Nausea/Vomiting, resolved No obstruction on abdominal xray F.E.N. Fluids NS @ 42/cc/hr Electrolyses: wnl Nutriton: regular diet Prophy: DVT: Heparin GI: Protonix Dietary consult to monitor poor PO intake and optimize caloric intake Physical therapy
--- NOTE | 2017-11-29 18:51 | PN ---
Progress Note (short form) - Note Progress Note: Patient seen and examined 3 episodes of diarrhea feels better had some food and walked with therapist Last Vital Signs Temp Pulse Resp BP Pulse Ox 98.2 F 80 20 125/58 96 11/29/17 09:00 11/29/17 14:09 11/29/17 09:00 11/29/17 14:09 11/29/17 09:00 Cor: RSR, No murmurs, No gallops Lungs: Clear to P&A Abd: Soft, Normal bowel sounds, No organomegaly Ext:No significant edema Abnormal Lab Results 11/29/17 11/29/17 06:00 06:00 RBC 3.07 L Hgb 10.1 L Hct 29.3 L Plt Count 66 L Monocytes % 20.0 H D Potassium 3.4 L Calcium 7.7 L AST 14 L Total Protein 5.3 L Albumin 2.6 L Home Medication List Medication Instructions Recorded Confirmed Type Alprazolam [Xanax] 0.25 mg PO BID 10/18/17 11/27/17 History Lisinopril/Hydrochlorothiazide 1 each PO DAILY 11/27/17 11/27/17 History [Zestoretic 10-12.5 mg Tablet] Tramadol HCl 50 mg PO QID PRN 11/27/17 11/27/17 History Active Medications Generic Name Dose Route Start Last Admin Trade Name Freq PRN Reason Stop Dose Admin Alprazolam 0.25 mg 11/28/17 10:00 11/29/17 09:29 Xanax - PO 0.25 mg BID JAKUB Administration Heparin Sodium (Porcine) 5,000 unit 11/28/17 06:00 11/29/17 14:24 Heparin - SQ 5,000 unit TID JAKUB Administration Sodium Chloride 1,000 mls @ 42 mls/hr 11/28/17 13:45 11/29/17 14:25 Normal Saline - IV 42 mls/hr ASDIR JAKUB Administration Lidocaine/Aluminum/Magnesium/Simeth 5 ml 11/28/17 06:00 11/29/17 18:01 Magic Mouthwash *Sjr Formula* - MM Not Given Q6HPO JAKUB Nystatin 500,000 units 11/28/17 18:00 11/29/17 17:45 Nystatin Oral Suspension - PO 500,000 units Q6HPO JAKUB Administration Nystatin/Triamcinolone Acetonide 1 applic 11/29/17 14:00 Mycolog Ii Ointment - TP BID JAKUB Ondansetron HCl 4 mg 11/28/17 12:47 11/28/17 13:18 Zofran Injection IVPUSH 4 mg Q8H PRN Administration NAUSEA Sucralfate 1 gm 11/28/17 12:45 11/29/17 09:29 Carafate Oral Suspension - PO 1 gm BID JAKUB Administration A/P 82 y/o patient with anal cancer s/p 5-FU/mitomycin C1 D12 c.diff - will start imodium will start protonix continue hydration
[2017-11-29] MEDS ORDERED: LOPERAMIDE HCL 2 MG CAPSULE PO PRN (18:55)
[2017-11-29] MEDS: NYSTATIN/TRIAMCINOLONE TOPICAL OINTMENT 15 GM TUBE TP SCH ×2 (20:00→21:56)
[2017-11-29] MEDS: PANTOPRAZOLE 40 MG TABLET (FP) PO SCH (21:56)
[2017-11-30] MEDS: MAG HYDROX/ALH/SMC/DPHA/LIDO 240 ML MOUTHWASH MM SCH ×4 (01:03→17:55)
[2017-11-30] MEDS: NYSTATIN 500,000 UNITS/5 ML SUSPENSION PO SCH ×4 (01:03→17:04)
[2017-11-30] MEDS: HEPARIN NA (PORCINE) 5,000 UNITS/ML 1ML VIAL SQ SCH ×3 (06:17→21:16)
[2017-11-30 08:49] LABS: BASO % 0.6 % (0-2.0); EOS % 1.6 % (0-4.5); HEMATOCRIT 29.7 % (32.4-45.2); HEMOGLOBIN 10.1 GM/dL (10.7-15.3); MCH 32.5 pg (25.7-33.7); MCHC 33.9 g/dl (32.0-36.0); MEAN CELL VOLUME 95.8 fl (80-96); MEAN PLT VOLUME 10.5 fl (7.5-11.1); MONO % 13.7 % (3.8-10.2); NEUT % 70.1 % (42.8-82.8); PLATELET COUNT 68 K/MM3 (134-434); RDW 13.1 % (11.6-15.6); WHITE BLOOD COUNT 6.8 K/mm3 (4.0-10.0)
[2017-11-30] MEDS: NYSTATIN/TRIAMCINOLONE TOPICAL OINTMENT 15 GM TUBE TP SCH ×2 (09:03→21:16)
[2017-11-30] MEDS: ALPRAZolam 0.25 MG TABLET PO SCH ×2 (09:03→21:16)
[2017-11-30] MEDS: PANTOPRAZOLE 40 MG TABLET (FP) PO SCH (09:03)
[2017-11-30] MEDS: SUCRALFATE 1 GM/10 ML UNIT DOSE CUPS PO SCH ×2 (09:03→21:16)
[2017-11-30 09:21] LABS: ALBUMIN 2.5 g/dl (3.4-5.0); ANION GAP 9 (8-16); BLOOD UREA NITROGEN 6 mg/dL (7-18); CALCIUM 7.4 mg/dL (8.5-10.1); CHLORIDE 107 mmol/L (98-107); CO2 25 mmol/L (21-32); GLUCOSE,RANDOM 86 mg/dL (74-106); POTASSIUM 3.4 mmol/L (3.5-5.1); SODIUM 141 mmol/L (136-145)
[2017-11-30 09:24] LABS: ALK PHOS 63 U/L (45-117); BILIRUBIN,TOTAL 0.4 mg/dL (0.2-1.0); CREATININE 0.7 mg/dL (0.55-1.02); SGOT/AST 14 U/L (15-37); SGPT/ALT 17 U/L (12-78); TOT PROT 5.2 g/dl (6.4-8.2)
[2017-11-30 09:42] LABS: PLATELET ESTIMATE DECREASED
[2017-11-30] MEDS: SODIUM CHLORIDE 1,000 ML IV SCH (13:03)
--- NOTE | 2017-11-30 16:22 | PN ---
Progress Note (short form) - Note Progress Note: Patient seen in follow up. No new complaints. Reports no diarrhea today. Attempting to eat, but appetite is poor. No significant events overnight. Inpatient Meds reviewed. Current Medications Generic Name Dose Route Start Last Admin Trade Name Freq PRN Reason Stop Dose Admin Alprazolam 0.25 mg 11/28/17 10:00 11/30/17 09:03 Xanax - PO 0.25 mg BID JAKUB Administration Heparin Sodium (Porcine) 5,000 unit 11/28/17 06:00 11/30/17 13:03 Heparin - SQ 5,000 unit TID JAKUB Administration Sodium Chloride 1,000 mls @ 42 mls/hr 11/28/17 13:45 11/30/17 13:03 Normal Saline - IV 42 mls/hr ASDIR JAKUB Administration Lidocaine/Aluminum/Magnesium/Simeth 5 ml 11/28/17 06:00 11/30/17 11:30 Magic Mouthwash *Sjr Formula* - MM Not Given Q6HPO JAKUB Loperamide HCl 2 mg 11/29/17 18:55 Imodium - PO Q6H PRN DIARRHEA Nystatin 500,000 units 11/28/17 18:00 11/30/17 11:30 Nystatin Oral Suspension - PO Not Given Q6HPO JAKUB Nystatin/Triamcinolone Acetonide 1 applic 11/29/17 14:00 11/30/17 09:03 Mycolog Ii Ointment - TP 1 applic BID JAKUB Administration Ondansetron HCl 4 mg 11/28/17 12:47 11/28/17 13:18 Zofran Injection IVPUSH 4 mg Q8H PRN Administration NAUSEA Pantoprazole Sodium 40 mg 11/29/17 19:00 11/30/17 09:03 Protonix - PO 40 mg DAILY JAKUB Administration Sucralfate 1 gm 11/28/17 12:45 11/30/17 09:03 Carafate Oral Suspension - PO 1 gm BID JAKUB Administration On Examination: Last Vital Signs Temp Pulse Resp BP Pulse Ox 98.0 F 82 22 115/82 97 11/30/17 15:00 11/30/17 15:00 11/30/17 15:00 11/30/17 15:00 11/30/17 09:00 General: In no acute distress, lying comfortably in bed. Extremities: No pallor or icterus. No pedal edema. No palpable lymphadenopathy. CVS: S1, S2, regular, no gallop or murmur. Chest: good air entry bilaterally, clear Abdomen: Non-distended, non-tender, no palpable organomegaly. Neuro: Alert, oriented, non-focal. Labs: CBC, BMP 11/30/17 06:40 11/30/17 06:40 Assessment. Anal cancer, received 5-FU/mitomycin C1 D13, admitted with diarrhea. Now resolved. Well-hydrated, mild hypokalemia. Encourage oral fluid intake. Continue observation supportive care - consider DC tomorrow if stable.
--- NOTE | 2017-11-30 17:43 | PN ---
Physical Exam: SUBJECTIVE: Patient seen and examined at the bedside. Feels better, appetite poor but attempting to eat small meals OBJECTIVE: K repleted Period Temp Pulse Resp BP Sys/Rao Pulse Ox Last 24 Hr 97.9 F-99.1 F 73-95 18-22 114-131/53-82 97-98 GENERAL: Awake, alert, and fully oriented, in no acute distress. HEAD: Normal with no signs of trauma. EYES: Pupils equal, round and reactive to light, extraocular movements intact, sclera anicteric, conjunctiva clear. No lid lag. EARS, NOSE, THROAT: Ears normal, nares patent, oropharynx clear without exudates. Moist mucous membranes. NECK: Normal range of motion, supple without lymphadenopathy, JVD, or masses. LUNGS: Breath sounds equal, clear to auscultation bilaterally. No wheezes, and no crackles. No accessory muscle use. HEART: Regular rate and rhythm, normal S1 and S2 without murmur, rub or gallop. ABDOMEN: Soft, nontender, not distended, normoactive bowel sounds, MUSCULOSKELETAL: Normal range of motion at all joints. No bony deformities or tenderness. No CVA tenderness. UPPER EXTREMITIES: No clubbing. No peripheral edema. LOWER EXTREMITIES: trace edema on bilateral lower ext. NEUROLOGICAL: Normal speech. Normal gait. PSYCHIATRIC: Cooperative. Good eye contact. Appropriate mood and affect. SKIN: Warm, dry, normal turgor, no rashes or lesions noted, normal capillary refill. Laboratory Results - last 24 hr 11/30/17 11/30/17 06:40 06:40 WBC 6.8 D RBC 3.10 L Hgb 10.1 L Hct 29.7 L MCV 95.8 MCH 32.5 MCHC 33.9 RDW 13.1 Plt Count 68 L MPV 10.5 Neutrophils % 70.1 Neutrophils % (Manual) 65.3 D Band Neutrophils % 4.0 Lymphocytes % 14.0 Lymphocytes % (Manual) 15.8 D Monocytes % 13.7 H Monocytes % (Manual) 14 H D Eosinophils % 1.6 Eosinophils % (Manual) 0.0 Basophils % 0.6 Basophils % (Manual) 0.0 Myelocytes % (Man) 0 Promyelocytes % (Man) 1 D Blast Cells % (Manual) 0 Nucleated RBC % 1 H Metamyelocytes 0 Platelet Estimate Decreased Sodium 141 Potassium 3.4 L Chloride 107 Carbon Dioxide 25 Anion Gap 9 BUN 6 L Creatinine 0.7 Creat Clearance w eGFR > 60 Random Glucose 86 Calcium 7.4 L Total Bilirubin 0.4 AST 14 L ALT 17 Alkaline Phosphatase 63 Total Protein 5.2 L Albumin 2.5 L Active Medications Generic Name Dose Route Start Last Admin Trade Name Freq PRN Reason Stop Dose Admin Alprazolam 0.25 mg 11/28/17 10:00 11/30/17 09:03 Xanax - PO 0.25 mg BID JAKUB Administration Heparin Sodium (Porcine) 5,000 unit 11/28/17 06:00 11/30/17 13:03 Heparin - SQ 5,000 unit TID JAKUB Administration Sodium Chloride 1,000 mls @ 42 mls/hr 11/28/17 13:45 11/30/17 13:03 Normal Saline - IV 42 mls/hr ASDIR JAKUB Administration Lidocaine/Aluminum/Magnesium/Simeth 5 ml 11/28/17 06:00 11/30/17 11:30 Magic Mouthwash *Sjr Formula* - MM Not Given Q6HPO JAKUB Loperamide HCl 2 mg 11/29/17 18:55 Imodium - PO Q6H PRN DIARRHEA Nystatin 500,000 units 11/28/17 18:00 11/30/17 17:04 Nystatin Oral Suspension - PO 500,000 units Q6HPO JAKUB Administration Nystatin/Triamcinolone Acetonide 1 applic 11/29/17 14:00 11/30/17 09:03 Mycolog Ii Ointment - TP 1 applic BID JAKUB Administration Ondansetron HCl 4 mg 11/28/17 12:47 11/28/17 13:18 Zofran Injection IVPUSH 4 mg Q8H PRN Administration NAUSEA Pantoprazole Sodium 40 mg 11/29/17 19:00 11/30/17 09:03 Protonix - PO 40 mg DAILY JAKUB Administration Sucralfate 1 gm 11/28/17 12:45 11/30/17 09:03 Carafate Oral Suspension - PO 1 gm BID JAKUB Administration ASSESSMENT/PLAN: Patient is an 82 year old female with a significant past medical history of hypertension, anxiety and recent anal cancer diagnosis s/p chemo and Radiation. She presents to the ED with a near syncope episode on her way to her second session of Radiation therapy. Syncope: Syncope, likely secondary to dehydration in the setting of recent chemo and RT Hydration with NS Not orthostatic Troponins negative x 3 Echo reviewed Doppler study reviewed Metabolic encephalopathy, resolved No neuro deficits noted Mucocytis On Carafate, Magic MM, Nystatin ID: Leukocytosis, resolved No signs of infection, no fevers, vitals stable Blood and urine cultures negative, c diff negative Oncology: Anal cancer Treatment per oncology RT on hold until symptoms improved GI: Nausea/Vomiting, resolved No obstruction on abdominal xray F.E.N. Fluids NS @ 42/cc/hr Electrolyses: wnl Nutriton: regular diet Prophy: DVT: Heparin GI: Protonix Dietary consult to monitor poor PO intake and optimize caloric intake. Likely discharge tomorrow if continues to do well. Physical therapy Visit type - Emergency Visit Emergency Visit: Yes ED Registration Date: 11/26/17 Care time: The patient presented to the Emergency Department on the above date and was hospitalized for further evaluation of their emergent condition. - New Patient This patient is new to me today: No - Critical Care Critical Care patient: No - Discharge Referral Referred to [facility] Med P.C.: No
[2017-11-30] MEDS ORDERED: POTASSIUM CHLORIDE TABS 20 MEQ TABLET.ER (FP) PO ONE (17:45)
[2017-12-01] MEDS: MAG HYDROX/ALH/SMC/DPHA/LIDO 240 ML MOUTHWASH MM SCH ×3 (01:13→11:49)
[2017-12-01] MEDS: NYSTATIN 500,000 UNITS/5 ML SUSPENSION PO SCH ×3 (01:13→11:49)
[2017-12-01] MEDS: HEPARIN NA (PORCINE) 5,000 UNITS/ML 1ML VIAL SQ SCH (06:23)
[2017-12-01] MEDS: PORTA CATH FLUSH 10 ML IVPUSH PRN ×3 (07:24→14:28)
[2017-12-01 07:32] LABS: BASO % 0.1 % (0-2.0); EOS % 1.7 % (0-4.5); HEMATOCRIT 28.3 % (32.4-45.2); HEMOGLOBIN 9.8 GM/dL (10.7-15.3); LYMPH % 14.7 % (8-40); MCH 32.9 pg (25.7-33.7); MCHC 34.5 g/dl (32.0-36.0); MEAN CELL VOLUME 95.3 fl (80-96); MEAN PLT VOLUME 10.1 fl (7.5-11.1); MONO % 10.5 % (3.8-10.2); PLATELET COUNT 57 K/MM3 (134-434); RBC 2.97 M/mm3 (3.60-5.2); RDW 12.9 % (11.6-15.6); WHITE BLOOD COUNT 6.2 K/mm3 (4.0-10.0)
[2017-12-01 07:55] LABS: CHLORIDE 107 mmol/L (98-107); POTASSIUM 3.6 mmol/L (3.5-5.1); SGOT/AST 18 U/L (15-37); SODIUM 140 mmol/L (136-145)
[2017-12-01 08:03] LABS: ALBUMIN 2.5 g/dl (3.4-5.0); ALK PHOS 60 U/L (45-117); ANION GAP 7 (8-16); BILIRUBIN,TOTAL 0.3 mg/dL (0.2-1.0); BLOOD UREA NITROGEN 6 mg/dL (7-18); CALCIUM 7.6 mg/dL (8.5-10.1); CO2 26 mmol/L (21-32); CREATININE 0.7 mg/dL (0.55-1.02); GLUCOSE,RANDOM 89 mg/dL (74-106); MAGNESIUM 1.8 mg/dL (1.8-2.4); SGPT/ALT 16 U/L (12-78); TOT PROT 5.1 g/dl (6.4-8.2)
[2017-12-01] MEDS: SUCRALFATE 1 GM/10 ML UNIT DOSE CUPS PO SCH (10:23)
[2017-12-01] MEDS: PANTOPRAZOLE 40 MG TABLET (FP) PO SCH (10:23)
[2017-12-01] MEDS: ALPRAZolam 0.25 MG TABLET PO SCH (10:23)
[2017-12-01] MEDS: NYSTATIN/TRIAMCINOLONE TOPICAL OINTMENT 15 GM TUBE TP SCH (10:23)
[2017-12-01] MEDS: SODIUM CHLORIDE 1,000 ML IV SCH (11:52)
--- NOTE | 2017-12-01 13:44 | CONSULT ---
Consultation: REQUESTING PROVIDER: CONSULT REQUEST: We have been asked to medically evaluate this patient for ( specify). HISTORY OF PRESENT ILLNESS: REVIEW OF SYSTEMS: CONSTITUTIONAL: Absent: fever, chills, diaphoresis, generalized weakness, malaise, loss of appetite, weight change HEENT: Absent: rhinorrhea, nasal congestion, throat pain, throat swelling, difficulty swallowing, mouth swelling, ear pain, eye pain, visual changes CARDIOVASCULAR: Absent: chest pain, syncope, palpitations, irregular heart rate, lightheadedness , peripheral edema RESPIRATORY: Absent: cough, shortness of breath, dyspnea with exertion, orthopnea, wheezing, stridor, hemoptysis GASTROINTESTINAL: Absent: abdominal pain, abdominal distension, nausea, vomiting, diarrhea, constipation, melena, hematochezia GENITOURINARY: Absent: dysuria, frequency, urgency, hesitancy, hematuria, flank pain, genital pain MUSCULOSKELETAL: Absent: myalgia, arthralgia, joint swelling, back pain, neck pain SKIN: Absent: rash, itching, pallor HEMATOLOGIC/IMMUNOLOGIC: Absent: easy bleeding, easy bruising, lymphadenopathy, frequent infections ENDOCRINE: Absent: unexplained weight gain, unexplained weight loss, heat intolerance, cold intolerance NEUROLOGIC: Absent: headache, focal weakness or paresthesias, dizziness, unsteady gait, seizure, mental status changes, bladder or bowel incontinence PSYCHIATRIC: Absent: anxiety, depression, suicidal or homicidal ideation, hallucinations. PHYSICAL EXAMINATION Vital Signs - 24 hr 11/30/17 11/30/17 11/30/17 15:00 17:30 21:00 Temperature 98.0 F 98.0 F Pulse Rate 82 83 Respiratory 22 20 Rate Blood Pressure 115/82 128/69 O2 Sat by Pulse 97 Oximetry (%) 11/30/17 12/01/17 12/01/17 22:00 05:47 09:00 Temperature 98.4 F 98.3 F Pulse Rate 86 82 Respiratory 18 18 18 Rate Blood Pressure 144/80 116/66 O2 Sat by Pulse 97 Oximetry (%) 12/01/17 10:00 Temperature 98.4 F Pulse Rate 77 Respiratory 18 Rate Blood Pressure 135/60 O2 Sat by Pulse Oximetry (%) GENERAL: Awake, alert, and fully oriented, in no acute distress. HEAD: Normal with no signs of trauma. EYES: Pupils equal, round and reactive to light, extraocular movements intact, sclera anicteric, conjunctiva clear. No lid lag. EARS, NOSE, THROAT: Ears normal, nares patent, oropharynx clear without exudates. Moist mucous membranes. NECK: Normal range of motion, supple without lymphadenopathy, JVD, or masses. LUNGS: Breath sounds equal, clear to auscultation bilaterally. No wheezes, and no crackles. No accessory muscle use. HEART: Regular rate and rhythm, normal S1 and S2 without murmur, rub or gallop. ABDOMEN: Soft, nontender, not distended, normoactive bowel sounds, no guarding, no rebound, no masses. No hepatomegaly or splenomegaly. MUSCULOSKELETAL: Normal range of motion at all joints. No bony deformities or tenderness. No CVA tenderness. UPPER EXTREMITIES: 2+ pulses, warm, well-perfused. No cyanosis. No clubbing. Cap refill <2 seconds. No peripheral edema. LOWER EXTREMITIES: 2+ pulses, warm, well-perfused. No calf tenderness. No peripheral edema. NEUROLOGICAL: Cranial nerves II-XII intact. Normal speech. Normal gait. PSYCHIATRIC: Cooperative. Good eye contact. Appropriate mood and affect. SKIN: Warm, dry, normal turgor, no rashes or lesions noted. Laboratory Results - last 24 hr 12/01/17 12/01/17 06:00 06:00 WBC 6.2 RBC 2.97 L Hgb 9.8 L Hct 28.3 L MCV 95.3 MCH 32.9 MCHC 34.5 RDW 12.9 Plt Count 57 L MPV 10.1 Neutrophils % 73.0 Lymphocytes % 14.7 Monocytes % 10.5 H Eosinophils % 1.7 Basophils % 0.1 Nucleated RBC % 0 Sodium 140 Potassium 3.6 Chloride 107 Carbon Dioxide 26 Anion Gap 7 L BUN 6 L Creatinine 0.7 Creat Clearance w eGFR > 60 Random Glucose 89 Calcium 7.6 L Magnesium 1.8 Total Bilirubin 0.3 D AST 18 ALT 16 Alkaline Phosphatase 60 Total Protein 5.1 L Albumin 2.5 L Active Medications Generic Name Dose Route Start Last Admin Trade Name Freq PRN Reason Stop Dose Admin Alprazolam 0.25 mg 11/28/17 10:00 12/01/17 10:23 Xanax - PO 0.25 mg BID JAKUB Administration Heparin Sodium (Porcine) 5,000 unit 11/28/17 06:00 12/01/17 06:23 Heparin - SQ 5,000 unit TID JAKUB Administration IV Flush 10 ml 12/01/17 06:28 12/01/17 07:24 Noble-Cath Flush IVPUSH 10 ml PRN PRN Administration maintenance Sodium Chloride 1,000 mls @ 42 mls/hr 11/28/17 13:45 12/01/17 11:52 Normal Saline - IV 42 mls/hr ASDIR JAKUB Administration Lidocaine/Aluminum/Magnesium/Simeth 5 ml 11/28/17 06:00 12/01/17 11:49 Magic Mouthwash *Sjr Formula* - MM 5 ml Q6HPO JAKUB Administration Loperamide HCl 2 mg 11/29/17 18:55 Imodium - PO Q6H PRN DIARRHEA Nystatin 500,000 units 11/28/17 18:00 12/01/17 11:49 Nystatin Oral Suspension - PO 500,000 units Q6HPO JAKUB Administration Nystatin/Triamcinolone Acetonide 1 applic 11/29/17 14:00 12/01/17 10:23 Mycolog Ii Ointment - TP 1 applic BID JAKUB Administration Ondansetron HCl 4 mg 11/28/17 12:47 11/28/17 13:18 Zofran Injection IVPUSH 4 mg Q8H PRN Administration NAUSEA Pantoprazole Sodium 40 mg 11/29/17 19:00 12/01/17 10:23 Protonix - PO 40 mg DAILY JAKUB Administration Sucralfate 1 gm 11/28/17 12:45 12/01/17 10:23 Carafate Oral Suspension - PO 1 gm BID JAKUB Administration ASSESSMENT/PLAN: Dispo: We will continue to follow the patient. Thank you for this consultative opportunity.
--- NOTE | 2017-12-01 14:01 | PN ---
Physical Exam: SUBJECTIVE: Patient seen and examined OBJECTIVE: Vital Signs Period Temp Pulse Resp BP Sys/Rao Pulse Ox Last 24 Hr 98.0 F-98.4 F 77-86 18-22 115-144/60-82 97-97 GENERAL: The patient is awake, alert, and fully oriented, in no acute distress. HEAD: Normal with no signs of trauma. EYES: PERRL, extraocular movements intact, sclera anicteric, conjunctiva clear. No ptosis. ENT: Ears normal, nares patent, oropharynx clear without exudates, moist mucous membranes. NECK: Trachea midline, full range of motion, supple. LUNGS: Breath sounds equal, clear to auscultation bilaterally, no wheezes, no crackles, no accessory muscle use. HEART: Regular rate and rhythm, S1, S2 without murmur, rub or gallop. ABDOMEN: Soft, nontender, nondistended, normoactive bowel sounds, no guarding, no rebound, no hepatosplenomegaly, no masses. EXTREMITIES: 2+ pulses, warm, well-perfused, no edema. NEUROLOGICAL: Cranial nerves II through XII grossly intact. Normal speech, gait not observed. PSYCH: Normal mood, normal affect. SKIN: Warm, dry, normal turgor, no rashes or lesions noted Laboratory Results - last 24 hr 12/01/17 12/01/17 06:00 06:00 WBC 6.2 RBC 2.97 L Hgb 9.8 L Hct 28.3 L MCV 95.3 MCH 32.9 MCHC 34.5 RDW 12.9 Plt Count 57 L MPV 10.1 Neutrophils % 73.0 Lymphocytes % 14.7 Monocytes % 10.5 H Eosinophils % 1.7 Basophils % 0.1 Nucleated RBC % 0 Sodium 140 Potassium 3.6 Chloride 107 Carbon Dioxide 26 Anion Gap 7 L BUN 6 L Creatinine 0.7 Creat Clearance w eGFR > 60 Random Glucose 89 Calcium 7.6 L Magnesium 1.8 Total Bilirubin 0.3 D AST 18 ALT 16 Alkaline Phosphatase 60 Total Protein 5.1 L Albumin 2.5 L Active Medications Generic Name Dose Route Start Last Admin Trade Name Freq PRN Reason Stop Dose Admin Alprazolam 0.25 mg 11/28/17 10:00 12/01/17 10:23 Xanax - PO 0.25 mg BID JAKUB Administration Heparin Sodium (Porcine) 5,000 unit 11/28/17 06:00 12/01/17 06:23 Heparin - SQ 5,000 unit TID JAKUB Administration IV Flush 10 ml 12/01/17 06:28 12/01/17 07:24 Noble-Cath Flush IVPUSH 10 ml PRN PRN Administration maintenance Sodium Chloride 1,000 mls @ 42 mls/hr 11/28/17 13:45 12/01/17 11:52 Normal Saline - IV 42 mls/hr ASDIR JAKUB Administration Lidocaine/Aluminum/Magnesium/Simeth 5 ml 11/28/17 06:00 12/01/17 11:49 Magic Mouthwash *Sjr Formula* - MM 5 ml Q6HPO JAKUB Administration Loperamide HCl 2 mg 11/29/17 18:55 Imodium - PO Q6H PRN DIARRHEA Nystatin 500,000 units 11/28/17 18:00 12/01/17 11:49 Nystatin Oral Suspension - PO 500,000 units Q6HPO JAKUB Administration Nystatin/Triamcinolone Acetonide 1 applic 11/29/17 14:00 12/01/17 10:23 Mycolog Ii Ointment - TP 1 applic BID JAKUB Administration Ondansetron HCl 4 mg 11/28/17 12:47 11/28/17 13:18 Zofran Injection IVPUSH 4 mg Q8H PRN Administration NAUSEA Pantoprazole Sodium 40 mg 11/29/17 19:00 12/01/17 10:23 Protonix - PO 40 mg DAILY JAKUB Administration Sucralfate 1 gm 11/28/17 12:45 12/01/17 10:23 Carafate Oral Suspension - PO 1 gm BID AJKUB Administration ASSESSMENT/PLAN:
--- NOTE | 2017-12-01 14:04 | DS ---
Physical Exam: SUBJECTIVE: Patient seen and examined. Feels better, reports that her appetite is improving. Able to ambulate in room without difficulty, no dizziness Wants to go home. OBJECTIVE: Vital Signs Period Temp Pulse Resp BP Sys/Rao Pulse Ox Last 24 Hr 98.0 F-98.4 F 77-86 18-22 115-144/60-82 97-97 PHYSICAL EXAM GENERAL: Awake, alert, and fully oriented, in no acute distress. HEAD: Normal with no signs of trauma. EYES: Pupils equal, round and reactive to light, extraocular movements intact, sclera anicteric, conjunctiva clear. No lid lag. EARS, NOSE, THROAT: Ears normal, nares patent, oropharynx clear without exudates. Moist mucous membranes. NECK: Normal range of motion, supple without lymphadenopathy, JVD, or masses. LUNGS: Breath sounds equal, clear to auscultation bilaterally. No wheezes, and no crackles. No accessory muscle use. HEART: Regular rate and rhythm, normal S1 and S2 without murmur, rub or gallop. ABDOMEN: Soft, nontender, not distended, normoactive bowel sounds, MUSCULOSKELETAL: Normal range of motion at all joints. No bony deformities or tenderness. No CVA tenderness. UPPER EXTREMITIES: No clubbing. No peripheral edema. LOWER EXTREMITIES: trace edema on bilateral lower ext. NEUROLOGICAL: Normal speech. Normal gait. PSYCHIATRIC: Cooperative. Good eye contact. Appropriate mood and affect. SKIN: Warm, dry, normal turgor, no rashes or lesions noted, normal capillary refill. LABS Laboratory Results - last 24 hr 12/01/17 12/01/17 06:00 06:00 WBC 6.2 RBC 2.97 L Hgb 9.8 L Hct 28.3 L MCV 95.3 MCH 32.9 MCHC 34.5 RDW 12.9 Plt Count 57 L MPV 10.1 Neutrophils % 73.0 Lymphocytes % 14.7 Monocytes % 10.5 H Eosinophils % 1.7 Basophils % 0.1 Nucleated RBC % 0 Sodium 140 Potassium 3.6 Chloride 107 Carbon Dioxide 26 Anion Gap 7 L BUN 6 L Creatinine 0.7 Creat Clearance w eGFR > 60 Random Glucose 89 Calcium 7.6 L Magnesium 1.8 Total Bilirubin 0.3 D AST 18 ALT 16 Alkaline Phosphatase 60 Total Protein 5.1 L Albumin 2.5 L HOSPITAL COURSE: Date of Admission:11/26/17 Date of Discharge: 12/01/17 Patient is an 82 year old female with a significant past medical history of hypertension, anxiety and recent anal cancer diagnosis s/p chemo and Radiation. She presents to the ED with a near syncope episode on her way to her second session of Radiation therapy. Syncope: Syncope, resolved, likely secondary to dehydration in the setting of recent chemo and RT. Hydrated during hospitalization. Troponins negative. Cardotid doppler w/o evidence of occlusion, echo reviewed. Patient ambulating with physical therapy. Reports feeling stronger. Metabolic encephalopathy, resolved No neuro deficits noted Mucocytis, On Carafate, Magic MM, Nystatin to continue at home ID: Leukocytosis, resolved No signs of infection, no fevers, vitals stable Blood and urine cultures negative, c diff negative Oncology: Anal cancer Treatment per oncology RT on hold until symptoms improved Thrombocytopenia, Plateles 100>57 during hospitalization. Discussed with hematology, repeat CBC as an outpatient within 3 days. Patient in agreement to get CBC on Saturday. GI: Nausea/Vomiting, resolved No obstruction on abdominal xray, tolerting diet and supplements Discharge home with repeat CBC as an outpatient. full code Minutes to complete discharge: 60 Discharge Summary Reason For Visit: SYNCOPE; DEHYDRATION Current Active Problems Anal cancer (Acute) Dehydration (Acute) Condition: Improved - Instructions Diet, Activity, Other Instructions: Mrs Marie: You were admitted on 11/26/2017 for a pre-syncopal episode. We found that you were likely dehydrated. Please continue hydration to a least 6-8 cups of water per day. When going from a sitting to standing position, please get up slowly. Please have your blood work repeated within 3 days to monitor your platelets , they need close monitoring with repeat blood work. New medications for mucositis (inflammation of your mucous membranes) - have been called into you pharmacy. - Magic mouth wash - Nystatin oral for mucositis - Carafate twice daily Continue your home blood pressure medications as you were doing. I am available if you have any questions. [phone] [facility] Referrals: Wilberto Oneil MD [Primary Care Provider] - Disposition: HOME - Home Medications Comprehensive Discharge Medication List: Ambulatory Orders Alprazolam [Xanax] 0.25 mg PO BID 10/18/17 Docusate Sodium [Colace -] 100 mg PO BID PRN #60 capsule 10/23/17 Ondansetron [Zofran *Odt*] 8 mg PO Q12H PRN #30 tab.rapdis 11/23/17 Lisinopril/Hydrochlorothiazide [Zestoretic 10-12.5 mg Tablet] 1 each PO DAILY Tramadol HCl 50 mg PO QID PRN 11/27/17 Mag Hydrox/Alh/Smc/Dpha/Lido [Magic Mouthwash *r Formula* -] 5 ml MM Q6HPO #1 bottle 12/01/17 Nystatin Oral Suspension - [Nystatin Oral Susp 010693 Units/5 ML -] 5 ml PO Q6H #1 bottle 12/01/17 Nystatin/Triamcinolone Top Oin [Mycolog II -] 1 applic TP BID #0 applic Sucralfate Oral Suspension [Carafate Oral Suspension -] 1 gm PO BID #1 bottle This patient is new to me today: No Emergency Visit: Yes ED Registration Date: 11/26/17 Care time: The patient presented to the Emergency Department on the above date and was hospitalized for further evaluation of their emergent condition. Critical Care patient: No - Discharge Referral Referred to [facility] No
[2017-12-01 14:51] VITALS: BP 129/61; PULSE 93; TEMP 97.9
== END 2017-12-01 15:01 | disposition home or self-care (01) | DRG 640 ==
LOC: JER 11:03 → JERBED 17:02 → J7W 11-27 17:55
PROVIDERS: ADMIT Internal Medicine; ATTEND Nurse Practitioner Family
DX: E86.0 Dehydration (principal); G93.41 Metabolic encephalopathy; C21.0 Malignant neoplasm of anus, unspecified; R64 Cachexia; R55 Syncope and collapse; I10 Essential (primary) hypertension; D72.829 Elevated white blood cell count, unspecified; D69.6 Thrombocytopenia, unspecified; R11.2 Nausea with vomiting, unspecified; R19.7 Diarrhea, unspecified; E87.6 Hypokalemia; Z68.26 Body mass index [BMI] 26.0-26.9, adult; T45.1X5A Adverse effect of antineoplastic and immunosuppressive drugs, initial encounter
CPT/HCPCS: 36415; 71045-TC-FY; 74018-TC-FY; 80053; 80061; 81003; 81015; 82550; 83721; 83735; 84484; 85025; 85610; 86850; 86900; 86901; 87040; 87086; 87324; 87449; 93005; 93010; 93306-TC; 93880-TC; 96372; 97116-GP; 97161-GP; 99285-25; J1644; J2505; J7030

== ENCOUNTER 2017-12-16 08:31 | Inpatient (IN) | payer OTHER, MEDICARE ==
[2017-12-16 09:24] LABS: BASO % 0.2 % (0-2.0); EOS % 1.8 % (0-4.5); HEMATOCRIT 33.7 % (32.4-45.2); HEMOGLOBIN 11.6 GM/dL (10.7-15.3); LYMPH % 5.9 % (8-40); MCH 33.5 pg (25.7-33.7); MCHC 34.3 g/dl (32.0-36.0); MEAN CELL VOLUME 97.8 fl (80-96); MEAN PLT VOLUME 8.8 fl (7.5-11.1); NEUT % 78.1 % (42.8-82.8); PLATELET COUNT 200 K/MM3 (134-434); RBC 3.45 M/mm3 (3.60-5.2); RDW 17.7 % (11.6-15.6); WHITE BLOOD COUNT 4.4 K/mm3 (4.0-10.0)
[2017-12-16 09:53] LABS: ALBUMIN 3.4 g/dl (3.4-5.0); ALK PHOS 60 U/L (45-117); ANION GAP 8 (8-16); BILIRUBIN,TOTAL 0.3 mg/dL (0.2-1.0); BLOOD UREA NITROGEN 16 mg/dL (7-18); CALCIUM 8.9 mg/dL (8.5-10.1); CHLORIDE 105 mmol/L (98-107); CO2 26 mmol/L (21-32); CREATININE 0.8 mg/dL (0.55-1.02); GLUCOSE,RANDOM 115 mg/dL (74-106); POTASSIUM 3.6 mmol/L (3.5-5.1); SGOT/AST 22 U/L (15-37); SGPT/ALT 28 U/L (12-78); SODIUM 139 mmol/L (136-145); TOT PROT 6.8 g/dl (6.4-8.2)
[2017-12-16 10:05] LABS: BILIRUBIN,DIRECT 0.3 mg/dL (0.0-0.2); MAGNESIUM 1.8 mg/dL (1.8-2.4)
[2017-12-16] MEDS ORDERED: ALPRAZolam 0.25 MG TABLET PO PRN (10:58)
[2017-12-16] MEDS ORDERED: PALONOSETRON HCL 0.25 MG/5 ML VIAL IVPUSH ONE (12:00)
[2017-12-16] MEDS ORDERED: DEXAMETHASONE INJECTION 10 MG in SODIUM CHLORIDE 50 ML IVPB ONE (12:00)
[2017-12-16] MEDS ORDERED: FLUOROURACIL IV ONE (12:00)
[2017-12-16] MEDS ORDERED: SODIUM CHLORIDE IV ONE (12:00)
--- NOTE | 2017-12-16 13:48 | EKG ---
Test Reason : Blood Pressure : / mmHG Vent. Rate : 082 BPM Atrial Rate : 082 BPM P-R Int : 206 ms QRS Dur : 072 ms QT Int : 382 ms P-R-T Axes : 079 014 042 degrees QTc Int : 446 ms SINUS RHYTHM WITH PREMATURE SUPRAVENTRICULAR COMPLEXES OTHERWISE NORMAL ECG WHEN COMPARED WITH ECG OF 26-NOV-2017 14:15, PREMATURE VENTRICULAR COMPLEXES ARE NO LONGER PRESENT PREMATURE SUPRAVENTRICULAR COMPLEXES ARE NOW PRESENT NONSPECIFIC T WAVE ABNORMALITY, IMPROVED IN INFERIOR LEADS Confirmed by MARILIN SOL MD ([id number]) on 12/16/2017 1:47:53 PM Referred By: [facility] [address] DR Confirmed By:MARILIN SOL MD
[2017-12-16] MEDS: NYSTATIN POWDER 100,000 UNITS/GM - 15 GM TOPICAL POWDER TP SCH (21:41)
--- NOTE | 2017-12-16 21:46 | HP ---
History and Physical History and Physical: HISTORY OF PRESENT ILLNESS: This is an 82 year old female with PMHx of HTN, anxiety, recently diagnosed with anal cancer (10/21/17), who is admitted for C2 5-FU/mitomycin. The patient denies any complaints at this time. C1 complicated by diarrhea PAST MEDICAL HISTORY: as above Social History: Smoking: denies Alcohol: denies Drugs: denies Family History: Allergies Sulfa (Sulfonamide Antibiotics) Allergy (Verified 11/18/17 07:29) HOME MEDICATIONS: Home Medications Medication Instructions Recorded Alprazolam [Xanax] 0.25 mg PO BID 10/18/17 Lisinopril 5 mg PO DAILY 10/18/17 Docusate Sodium [Colace -] 100 mg PO BID PRN #60 capsule 10/23/17 Last Vital Signs Temp Pulse Resp BP Pulse Ox 97.4 F L 103 H 18 127/67 96 12/16/17 09:50 12/16/17 09:50 12/16/17 20:39 12/16/17 09:50 12/16/17 20:39 Cor: RSR, No murmurs, No gallops Lungs: Clear to P&A Abd: Soft, Normal bowel sounds, No organomegaly Ext:No significant edema PHYSICAL EXAMINATION Assessment: This is an 82 year old female with PMHx of HTN, anxiety, recently diagnosed with anal cancer (10/21/17), here for C2 5FU/mitomycin Plan: 1) Anal cancer For C2 5-FU/mitomycin will discuss with Dr. Oneil
[2017-12-17 07:34] LABS: BASO % 0.2 % (0-2.0); EOS % 0.9 % (0-4.5); HEMATOCRIT 28.7 % (32.4-45.2); HEMOGLOBIN 9.8 GM/dL (10.7-15.3); MCH 33.2 pg (25.7-33.7); MEAN CELL VOLUME 97.8 fl (80-96); MEAN PLT VOLUME 9.1 fl (7.5-11.1); MONO % 13.2 % (3.8-10.2); NEUT % 77.7 % (42.8-82.8); PLATELET COUNT 171 K/MM3 (134-434); RBC 2.94 M/mm3 (3.60-5.2); RDW 18.8 % (11.6-15.6); WHITE BLOOD COUNT 3.7 K/mm3 (4.0-10.0)
[2017-12-17 08:01] LABS: ANION GAP 7 (8-16); BLOOD UREA NITROGEN 13 mg/dL (7-18); CALCIUM 8.5 mg/dL (8.5-10.1); CHLORIDE 108 mmol/L (98-107); CO2 26 mmol/L (21-32); GLUCOSE,RANDOM 87 mg/dL (74-106); MAGNESIUM 1.8 mg/dL (1.8-2.4); POTASSIUM 3.8 mmol/L (3.5-5.1); SODIUM 141 mmol/L (136-145)
[2017-12-17 08:03] LABS: CREATININE 0.7 mg/dL (0.55-1.02)
[2017-12-17] MEDS: NYSTATIN POWDER 100,000 UNITS/GM - 15 GM TOPICAL POWDER TP SCH ×2 (09:30→21:26)
[2017-12-17] MEDS ORDERED: FLUOROURACIL IV ONE (12:00)
[2017-12-17] MEDS ORDERED: SODIUM CHLORIDE IV ONE (12:00)
[2017-12-17] MEDS: ONDANSETRON 4 MG/2 ML VIAL IVPB PRN (12:59)
--- NOTE | 2017-12-17 13:50 | PN ---
Progress Note (short form) - Note Progress Note: pt seen and examined. +"diaper" rash +constipation otherwise no complains Cor: RSR, No murmurs, No gallops Lungs: Clear to P&A Abd: Soft, Normal bowel sounds, No organomegaly Ext:No significant edema Temp Pulse Resp BP Pulse Ox 98.3 F 81 20 108/52 96 12/17/17 09:00 12/17/17 09:00 12/17/17 09:00 12/17/17 09:00 12/17/17 09:00 CBC, BMP 12/17/17 06:45 12/17/17 06:45 Current Medications Generic Name Dose Route Start Last Admin Trade Name Freq PRN Reason Stop Dose Admin Alprazolam 0.25 mg 12/17/17 14:00 Xanax - PO BID JAKUB IV Flush 10 ml 12/16/17 14:07 Noble-Cath Flush IVPUSH PRN PRN FLUSH Fluorouracil 1,225 mg/ Sodium 549 mls @ 22.875 mls/hr 12/17/17 12:00 Chloride IV 12/18/17 11:59 ONCE ONE Loperamide HCl 2 mg 12/16/17 10:59 Imodium - PO PRN PRN DIARRHEA Nystatin 1 applic 12/16/17 22:00 12/17/17 09:30 Nystop Powder - TP 1 applic BID JAKUB Administration Ondansetron HCl 8 mg 12/16/17 10:59 12/17/17 12:59 Zofran Injection IVPB 8 mg Q8H PRN Administration NAUSEA AND/OR VOMITING Anal Ca C2D2-- 5FU/Mitomycin Monitor CBC/comp/Mag s/p RT Today miralax zanax OOB to chair. ambulation ad ivory---DVT ppx
[2017-12-17] MEDS ORDERED: LACTULOSE 20 GM/30 ML UDC (FOR ORAL USE ONLY) PO ONE (14:06)
[2017-12-17] MEDS: ALPRAZolam 0.25 MG TABLET PO SCH ×2 (14:10→21:26)
[2017-12-17] MEDS ORDERED: POLYETHYLENE GLYCOL 3350 119 GM BTL PO ONE (22:00)
[2017-12-18] MEDS: LOPERAMIDE HCL 2 MG CAPSULE PO PRN ×2 (02:59→06:18)
[2017-12-18 07:47] LABS: BASO % 0.5 % (0-2.0); LYMPH % 10.6 % (8-40); MCH 33.9 pg (25.7-33.7); MCHC 34.5 g/dl (32.0-36.0); MEAN CELL VOLUME 98.4 fl (80-96); MEAN PLT VOLUME 9.3 fl (7.5-11.1); MONO % 9.4 % (3.8-10.2); NEUT % 74.5 % (42.8-82.8); PLATELET COUNT 149 K/MM3 (134-434); RBC 2.64 M/mm3 (3.60-5.2); RDW 19.3 % (11.6-15.6); WHITE BLOOD COUNT 3.2 K/mm3 (4.0-10.0)
[2017-12-18 08:11] LABS: ANION GAP 6 (8-16); BLOOD UREA NITROGEN 15 mg/dL (7-18); CALCIUM 7.7 mg/dL (8.5-10.1); CHLORIDE 108 mmol/L (98-107); CO2 27 mmol/L (21-32); GLUCOSE,RANDOM 75 mg/dL (74-106); MAGNESIUM 1.7 mg/dL (1.8-2.4); POTASSIUM 3.7 mmol/L (3.5-5.1); SODIUM 141 mmol/L (136-145)
[2017-12-18 08:18] LABS: ALBUMIN 2.5 g/dl (3.4-5.0); ALK PHOS 44 U/L (45-117); BILIRUBIN,TOTAL 0.3 mg/dL (0.2-1.0); CREATININE 0.7 mg/dL (0.55-1.02); SGOT/AST 14 U/L (15-37); SGPT/ALT 18 U/L (12-78); TOT PROT 4.9 g/dl (6.4-8.2)
[2017-12-18] MEDS: ALPRAZolam 0.25 MG TABLET PO SCH ×2 (09:08→21:34)
[2017-12-18] MEDS: NYSTATIN POWDER 100,000 UNITS/GM - 15 GM TOPICAL POWDER TP SCH ×2 (09:08→21:33)
[2017-12-18] MEDS ORDERED: MAGNESIUM 1GM/D5W - 1 GM/100 ML IVPB IVPB ONE (10:45)
[2017-12-18] MEDS: PORTA CATH FLUSH 10 ML IVPUSH PRN (11:42)
[2017-12-18] MEDS ORDERED: SODIUM CHLORIDE IV ONE (12:00)
[2017-12-18] MEDS ORDERED: FLUOROURACIL IV ONE (12:00)
[2017-12-18] MEDS: ONDANSETRON 4 MG/2 ML VIAL IVPB PRN (16:00)
--- NOTE | 2017-12-18 18:22 | PN ---
Progress Note (short form) - Note Progress Note: pt seen and examined. +"diaper" rash +constipation otherwise no complains Cor: RSR, No murmurs, No gallops Lungs: Clear to P&A Abd: Soft, Normal bowel sounds, No organomegaly Ext:No significant edema Temp Pulse Resp BP Pulse Ox 98.3 F 81 20 108/52 96 12/17/17 09:00 12/17/17 09:00 12/17/17 09:00 12/17/17 09:00 12/17/17 09:00 CBC, BMP 12/17/17 06:45 12/17/17 06:45 Current Medications Generic Name Dose Route Start Last Admin Trade Name Freq PRN Reason Stop Dose Admin Alprazolam 0.25 mg 12/17/17 14:00 Xanax - PO BID JAKUB IV Flush 10 ml 12/16/17 14:07 Noble-Cath Flush IVPUSH PRN PRN FLUSH Fluorouracil 1,225 mg/ Sodium 549 mls @ 22.875 mls/hr 12/17/17 12:00 Chloride IV 12/18/17 11:59 ONCE ONE Loperamide HCl 2 mg 12/16/17 10:59 Imodium - PO PRN PRN DIARRHEA Nystatin 1 applic 12/16/17 22:00 12/17/17 09:30 Nystop Powder - TP 1 applic BID JAKUB Administration Ondansetron HCl 8 mg 12/16/17 10:59 12/17/17 12:59 Zofran Injection IVPB 8 mg Q8H PRN Administration NAUSEA AND/OR VOMITING Anal Ca C2D3-- 5FU/Mitomycin Monitor CBC/comp/Mag s/p RT Today miralax zanax ANC normal OOB to chair. ambulation ad ivory---DVT ppx
[2017-12-19] MEDS: MAG HYDROX/ALH/SMC/DPHA/LIDO 240 ML MOUTHWASH MM SCH ×5 (00:27→23:43)
[2017-12-19] MEDS: PORTA CATH FLUSH 10 ML IVPUSH PRN (06:30)
[2017-12-19 07:14] LABS: BASO % 0.3 % (0-2.0); EOS % 7.3 % (0-4.5); HEMATOCRIT 27.7 % (32.4-45.2); HEMOGLOBIN 9.5 GM/dL (10.7-15.3); LYMPH % 11.2 % (8-40); MCH 33.7 pg (25.7-33.7); MCHC 34.4 g/dl (32.0-36.0); MEAN CELL VOLUME 97.8 fl (80-96); MEAN PLT VOLUME 9.2 fl (7.5-11.1); MONO % 7.1 % (3.8-10.2); NEUT % 74.1 % (42.8-82.8); PLATELET COUNT 146 K/MM3 (134-434); RBC 2.83 M/mm3 (3.60-5.2); RDW 19.2 % (11.6-15.6)
[2017-12-19] MEDS: ONDANSETRON 4 MG/2 ML VIAL IVPB PRN (08:37)
[2017-12-19 08:41] LABS: CHLORIDE 107 mmol/L (98-107); POTASSIUM 3.7 mmol/L (3.5-5.1); SODIUM 143 mmol/L (136-145)
[2017-12-19 08:58] LABS: ALBUMIN 2.6 g/dl (3.4-5.0); ALK PHOS 48 U/L (45-117); ANION GAP 9 (8-16); BILIRUBIN,TOTAL 0.4 mg/dL (0.2-1.0); BLOOD UREA NITROGEN 13 mg/dL (7-18); CALCIUM 7.9 mg/dL (8.5-10.1); CO2 27 mmol/L (21-32); CREATININE 0.7 mg/dL (0.55-1.02); GLUCOSE,RANDOM 82 mg/dL (74-106); SGOT/AST 14 U/L (15-37); SGPT/ALT 16 U/L (12-78); TOT PROT 5.3 g/dl (6.4-8.2)
[2017-12-19] MEDS ORDERED: ACETAMINOPHEN 325 MG TABLET (FP) PO ONE ×2 (09:57→10:00)
[2017-12-19] MEDS: ALPRAZolam 0.25 MG TABLET PO SCH ×2 (10:05→22:07)
[2017-12-19] MEDS: NYSTATIN POWDER 100,000 UNITS/GM - 15 GM TOPICAL POWDER TP SCH ×2 (11:16→22:06)
[2017-12-19] MEDS ORDERED: FLUOROURACIL IV ONE (12:00)
[2017-12-19] MEDS ORDERED: SODIUM CHLORIDE IV ONE (12:00)
[2017-12-19] MEDS ORDERED: ACETAMINOPHEN 325 MG TABLET (FP) PO PRN (17:31)
--- NOTE | 2017-12-19 17:34 | PN ---
Progress Note (short form) - Note Progress Note: pt seen and examined. rash still present no BM yet, but has the "urge" to go nausea improved otherwise no complains Cor: RSR, No murmurs, No gallops Lungs: Clear to P&A Abd: Soft, Normal bowel sounds, No organomegaly Ext:No significant edema Temp Pulse Resp BP Pulse Ox 98.3 F 81 20 108/52 96 12/17/17 09:00 12/17/17 09:00 12/17/17 09:00 12/17/17 09:00 12/17/17 09:00 CBC, BMP 12/17/17 06:45 12/17/17 06:45 Current Medications Generic Name Dose Route Start Last Admin Trade Name Freq PRN Reason Stop Dose Admin Alprazolam 0.25 mg 12/17/17 14:00 Xanax - PO BID JAKUB IV Flush 10 ml 12/16/17 14:07 Noble-Cath Flush IVPUSH PRN PRN FLUSH Fluorouracil 1,225 mg/ Sodium 549 mls @ 22.875 mls/hr 12/17/17 12:00 Chloride IV 12/18/17 11:59 ONCE ONE Loperamide HCl 2 mg 12/16/17 10:59 Imodium - PO PRN PRN DIARRHEA Nystatin 1 applic 12/16/17 22:00 12/17/17 09:30 Nystop Powder - TP 1 applic BID JAKUB Administration Ondansetron HCl 8 mg 12/16/17 10:59 12/17/17 12:59 Zofran Injection IVPB 8 mg Q8H PRN Administration NAUSEA AND/OR VOMITING Anal Ca on concurrent Chemo/RT C2D4-- 5FU/Mitomycin Monitor CBC/comp/Mag continues to receive RT miralax zanax tylenol prn nystatin for the dermatitis. may consider alternatives once RT finishes, no break down of the skin noted. ANC normal OOB to chair. Neulasta on Saturday ambulation ad ivory---DVT ppx d/c depends on the completion of D5.
[2017-12-20] MEDS: MAG HYDROX/ALH/SMC/DPHA/LIDO 240 ML MOUTHWASH MM SCH ×4 (05:56→23:51)
[2017-12-20] MEDS: PORTA CATH FLUSH 10 ML IVPUSH PRN (05:57)
[2017-12-20 07:12] LABS: BASO % 0.5 % (0-2.0); EOS % 6.3 % (0-4.5); HEMATOCRIT 29.6 % (32.4-45.2); HEMOGLOBIN 10.3 GM/dL (10.7-15.3); LYMPH % 4.1 % (8-40); MCH 33.8 pg (25.7-33.7); MCHC 34.7 g/dl (32.0-36.0); MEAN CELL VOLUME 97.5 fl (80-96); MEAN PLT VOLUME 9.5 fl (7.5-11.1); MONO % 3.7 % (3.8-10.2); NEUT % 85.4 % (42.8-82.8); PLATELET COUNT 129 K/MM3 (134-434); RBC 3.04 M/mm3 (3.60-5.2); RDW 18.7 % (11.6-15.6); WHITE BLOOD COUNT 3.6 K/mm3 (4.0-10.0)
[2017-12-20 07:29] LABS: CHLORIDE 107 mmol/L (98-107); POTASSIUM 3.9 mmol/L (3.5-5.1); SODIUM 141 mmol/L (136-145)
[2017-12-20 07:31] LABS: ANION GAP 7 (8-16); BLOOD UREA NITROGEN 12 mg/dL (7-18); CO2 27 mmol/L (21-32); CREATININE 0.7 mg/dL (0.55-1.02); GLUCOSE,RANDOM 85 mg/dL (74-106); MAGNESIUM 1.9 mg/dL (1.8-2.4)
[2017-12-20] MEDS: ALPRAZolam 0.25 MG TABLET PO SCH ×2 (10:07→21:22)
[2017-12-20] MEDS: NYSTATIN POWDER 100,000 UNITS/GM - 15 GM TOPICAL POWDER TP SCH ×2 (10:09→21:23)
--- NOTE | 2017-12-20 10:59 | PN ---
Progress Note (short form) - Note Progress Note: Patient seen and examined Continuing on RT/Chemotherapy infusion Tolerating to date. Some soft frequent stool No significant abdominal pains, nausea, emesis Last Vital Signs Temp Pulse Resp BP Pulse Ox 98.9 F 75 16 116/56 95 12/20/17 10:13 12/20/17 10:13 12/20/17 10:13 12/20/17 10:13 12/19/17 21:00 HEENT: LAISHA, EOM Intact Oropharynx: No thrush, No mucositis CBC, BMP 12/20/17 06:00 12/20/17 06:00 Current Medications Generic Name Dose Route Start Last Admin Trade Name Freq PRN Reason Stop Dose Admin Acetaminophen 650 mg 12/19/17 17:31 12/19/17 20:05 Tylenol - PO 650 mg Q6H PRN Administration HEADACHE Alprazolam 0.25 mg 12/17/17 14:00 12/20/17 10:07 Xanax - PO 0.25 mg BID JAKUB Administration IV Flush 10 ml 12/16/17 14:07 12/20/17 05:57 Noble-Cath Flush IVPUSH 10 ml PRN PRN Administration FLUSH Fluorouracil 1,225 mg/ Sodium 549 mls @ 22.875 mls/hr 12/19/17 12:00 18:20 Chloride IV 12/20/17 11:59 22.875 mls/hr ONCE ONE Administration Lidocaine/Aluminum/Magnesium/Simeth 5 ml 12/19/17 00:00 12/20/17 05:56 Magic Mouthwash *Sjr Formula* - MM 5 ml Q6HPO JAKUB Administration Loperamide HCl 2 mg 12/16/17 10:59 12/18/17 06:18 Imodium - PO 2 mg PRN PRN Administration DIARRHEA Nystatin 1 applic 12/16/17 22:00 12/20/17 10:09 Nystop Powder - TP 1 applic BID JAKUB Administration Ondansetron HCl 8 mg 12/16/17 10:59 12/19/17 08:37 Zofran Injection IVPB 8 mg Q8H PRN Administration NAUSEA AND/OR VOMITING Cor: RSR, No murmurs, No gallops Lungs: Clear to P&A Abd: Soft, Normal bowel sounds, No organomegaly Ext:No significant edema Skin: No rashes, Integument intact 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
[2017-12-20] MEDS: ONDANSETRON 4 MG/2 ML VIAL IVPB PRN (12:18)
--- NOTE | 2017-12-20 14:12 | PN ---
Progress Note (short form) - Note Progress Note: Radiation Oncology Ms. Marie is well known to me w hx of localized SCC of anal canal, currently on chemoradiation. Admitted for 2nd cycle of [facility]/5FU. Reports occ loose BMs and mild nausea controlled with iv medication. Some soreness in perineal region. Exam: VSS afebrile Abd soft NT/ND BS+ Brisk erythema in scott-anal region and inferior intergluteal fold, mild desquamation. Impression: Localized anal SCC tolerating chemoradiation. Complete chemo per med onc. Will cont daily RT (M-F). Total dose to date = 32.4Gy Advised silvadene BID and sitz baths after BMs. Anti-emetics and anti-diarrheals on discharge.
[2017-12-20] MEDS: LOPERAMIDE HCL 2 MG CAPSULE PO PRN (20:01)
[2017-12-20] MEDS ORDERED: SODIUM CHLORIDE 1,000 ML IV SCH (20:10)
[2017-12-21] MEDS: MAG HYDROX/ALH/SMC/DPHA/LIDO 240 ML MOUTHWASH MM SCH ×2 (05:58→11:51)
[2017-12-21 07:31] LABS: BASO % 0.4 % (0-2.0); EOS % 5.2 % (0-4.5); HEMATOCRIT 24.7 % (32.4-45.2); HEMOGLOBIN 8.5 GM/dL (10.7-15.3); LYMPH % 4.2 % (8-40); MCH 33.7 pg (25.7-33.7); MCHC 34.3 g/dl (32.0-36.0); MEAN CELL VOLUME 98.4 fl (80-96); MEAN PLT VOLUME 9.7 fl (7.5-11.1); MONO % 3.8 % (3.8-10.2); NEUT % 86.4 % (42.8-82.8); PLATELET COUNT 93 K/MM3 (134-434); RBC 2.52 M/mm3 (3.60-5.2); RDW 18.7 % (11.6-15.6)
[2017-12-21 08:10] LABS: ANION GAP 5 (8-16); BLOOD UREA NITROGEN 9 mg/dL (7-18); CALCIUM 7.6 mg/dL (8.5-10.1); CHLORIDE 107 mmol/L (98-107); CO2 28 mmol/L (21-32); CREATININE 0.7 mg/dL (0.55-1.02); GLUCOSE,RANDOM 83 mg/dL (74-106); POTASSIUM 3.8 mmol/L (3.5-5.1); SODIUM 140 mmol/L (136-145)
[2017-12-21 08:11] LABS: MAGNESIUM 1.6 mg/dL (1.8-2.4)
[2017-12-21 10:06] LABS: PLATELET ESTIMATE DECREASED
[2017-12-21] MEDS: NYSTATIN POWDER 100,000 UNITS/GM - 15 GM TOPICAL POWDER TP SCH (10:41)
[2017-12-21] MEDS: ALPRAZolam 0.25 MG TABLET PO SCH (10:41)
[2017-12-21] MEDS: ONDANSETRON 4 MG/2 ML VIAL IVPB PRN (10:42)
[2017-12-21 14:19] VITALS: BMI 25.9
--- NOTE | 2017-12-21 15:44 | PN ---
Progress Note (short form) - Note Progress Note: Patient seen and examined Feels well. no complaints Last Vital Signs Temp Pulse Resp BP Pulse Ox 99.3 F 86 20 111/52 97 12/21/17 05:41 12/21/17 05:41 12/21/17 05:41 12/21/17 05:41 12/20/17 21:00 Cor: RSR, No murmurs, No gallops Lungs: Clear to P&A Abd: Soft, Normal bowel sounds, No organomegaly Ext:No significant edema Abnormal Lab Results 12/21/17 12/21/17 06:00 06:00 WBC 2.0 L RBC 2.52 L Hgb 8.5 L Hct 24.7 L D MCV 98.4 H RDW 18.7 H Plt Count 93 L D Neutrophils % 86.4 H Lymphocytes % 4.2 L Eosinophils % 5.2 H Anion Gap 5 L Calcium 7.6 L Magnesium 1.6 L Active Medications Acetaminophen (Tylenol -) 650 mg PO Q6H PRN PRN Reason: HEADACHE Last Admin: 12/19/17 20:05 Dose: 650 mg Alprazolam (Xanax -) 0.25 mg PO BID [facility] Last Admin: 12/21/17 10:41 Dose: 0.25 mg IV Flush (Noble-Cath Flush) 10 ml IVPUSH PRN PRN PRN Reason: FLUSH Last Admin: 12/20/17 05:57 Dose: 10 ml Sodium Chloride (Normal Saline -) 1,000 mls @ 42 mls/hr IV ASDIR [facility] Last Admin: 12/20/17 21:16 Dose: 42 mls/hr Lidocaine/Aluminum/Magnesium/Simeth (Magic Mouthwash *Sjr Formula* -) 5 ml MM Q6HPO [facility] Last Admin: 12/21/17 11:51 Dose: 5 ml Loperamide HCl (Imodium -) 2 mg PO PRN PRN PRN Reason: DIARRHEA Last Admin: 12/20/17 20:01 Dose: 2 mg Nystatin (Nystop Powder -) 1 applic TP BID [facility] Last Admin: 12/21/17 10:41 Dose: 1 applic Ondansetron HCl (Zofran Injection) 8 mg IVPB Q8H PRN PRN Reason: NAUSEA AND/OR VOMITING Last Admin: 12/21/17 10:42 Dose: 8 mg A/P 82 y/ patient with anal cancer, on chemo/RT s/p C2 5-FU/mitomycin Doing well . no diarrhea. for neulasta and follow up on 12/23/17 reinstructed about febrile neutropenia and diarrhea.
[2017-12-21 15:46] VITALS: BP 141/61; PULSE 74; TEMP 98.9
== END 2017-12-21 17:38 | disposition home or self-care (01) | DRG 846 ==
LOC: J7W 08:31
PROVIDERS: ADMIT Internal Medicine Hematology & Oncology; ATTEND Internal Medicine Hematology & Oncology
DX: Z51.11 Encounter for antineoplastic chemotherapy (principal); D61.810 Antineoplastic chemotherapy induced pancytopenia; C21.0 Malignant neoplasm of anus, unspecified; L59.8 Other specified disorders of the skin and subcutaneous tissue related to radiation; I10 Essential (primary) hypertension; R19.7 Diarrhea, unspecified; D70.9 Neutropenia, unspecified; K59.00 Constipation, unspecified
CPT/HCPCS: 36415; 80048; 80053; 80076; 83735; 85025; 93005; 93010; 96375; J1100; J2469; J7030; J9280

== ENCOUNTER 2017-12-23 13:05 | Day surgery (SDC) | payer OTHER, MEDICARE ==
[2017-12-23] MEDS: PEGFILGRASTIM 6 MG/0.6 ML DISP.SYRIN SQ ONE ×2 (13:21→13:36)
[2017-12-23 14:03] VITALS: BP 127/69; PULSE 87; TEMP 98.3
== END 2017-12-23 13:20 | disposition home or self-care (01) ==
LOC: JONCCHEMO 13:05 → J7W 13:18 → JONCCHEMO 13:20
PROVIDERS: ATTEND Internal Medicine Hematology & Oncology
PROC: 3E013GC Introduction of Other Therapeutic Substance into Subcutaneous Tissue, Percutaneous Approach (ICD-10-PCS; principal; 2017-12-23)
DX: C21.0 Malignant neoplasm of anus, unspecified (principal); Z76.89 Persons encountering health services in other specified circumstances
CPT/HCPCS: 96372; J2505

== ENCOUNTER 2017-12-29 14:15 | Inpatient (IN) | payer OTHER, MEDICARE ==
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
[2017-12-29] MEDS ORDERED: SODIUM CHLORIDE 1,000 ML IV ONE (16:05)
[2017-12-29 16:37] LABS: INR 1.32 (0.82-1.09); PROTHROMBIN TIME (PATIENT) 14.9 SEC (9.7-13.0)
[2017-12-29 16:41] LABS: ALBUMIN 2.5 g/dl (3.4-5.0); ALK PHOS 69 U/L (45-117); ANION GAP 9 (8-16); BILIRUBIN,TOTAL 0.4 mg/dL (0.2-1.0); BLOOD UREA NITROGEN 8 mg/dL (7-18); CALCIUM 7.7 mg/dL (8.5-10.1); CHLORIDE 106 mmol/L (98-107); CO2 25 mmol/L (21-32); CREATININE 0.7 mg/dL (0.55-1.02); GLUCOSE,RANDOM 94 mg/dL (74-106); MAGNESIUM 1.8 mg/dL (1.8-2.4); POTASSIUM 3.2 mmol/L (3.5-5.1); SGOT/AST 18 U/L (15-37); SGPT/ALT 23 U/L (12-78); SODIUM 140 mmol/L (136-145); TOT PROT 5.3 g/dl (6.4-8.2)
[2017-12-29] MEDS ORDERED: POTASSIUM CHLORIDE ORAL LIQUID 20 MEQ/15 ML PO ONE ×2 (16:54→17:17)
[2017-12-29 17:13] LABS: BASO % 0.3 % (0-2.0); EOS % 0.6 % (0-4.5); HEMATOCRIT 28.2 % (32.4-45.2); HEMOGLOBIN 9.3 GM/dL (10.7-15.3); LYMPH % 3.2 % (8-40); MCH 32.8 pg (25.7-33.7); MCHC 33.1 g/dl (32.0-36.0); MEAN CELL VOLUME 98.9 fl (80-96); MEAN PLT VOLUME 9.2 fl (7.5-11.1); MONO % 13.9 % (3.8-10.2); RBC 2.85 M/mm3 (3.60-5.2); RDW 19.5 % (11.6-15.6); WHITE BLOOD COUNT 5.5 K/mm3 (4.0-10.0)
[2017-12-29 17:34] LABS: PLATELET COUNT 13 K/MM3 (134-434)
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
--- NOTE | 2017-12-29 18:21 | PN ---
Teaching Attending Note Name of Resident: Asia Maldonado ATTENDING PHYSICIAN STATEMENT I saw and evaluated the patient. I reviewed the resident's note and discussed the case with the resident. I agree with the resident's findings and plan as documented. PCP: Dr Oneil (oncologist) Radiol- Dr Velázquez SUBJECTIVE: Patient is feeling weak, she has not been eaten for the past 2 weeks, and c/o diarrhea x 1week usually gets it at night time. ALso always oozing blood per rectum as per radiologist as per patient's understanding that is normal to happen. OBJECTIVE: Vital Signs Temperature Pulse Rate 96 H 12/29/17 18:18 Respiratory Rate 18 12/29/17 18:18 Blood Pressure 97/65 12/29/17 18:18 O2 Sat by Pulse Oximetry (%) 96 12/29/17 18:18 GENERAL: awake, alert, and fully oriented, in no acute distress. HEAD: Normal with no signs of trauma. EYES: Pupils equal, round and reactive to light EARS, NOSE, THROAT: oropharynx clear without exudates. Dry mucous membranes. LUNGS: Basal creps, No wheezes HEART: irregular irregular with rate of 120s, no murmur appreciated without murmur. ABDOMEN: Soft, nontender, not distended, hyperactive bowel sounds, no guarding, no rebound Rectal exam: per resident's exam MUSCULOSKELETAL: Normal range of motion at all joints. No bony deformities or tenderness. EXTREMITIES: 2+ pulses, warm, well-perfused. nonpitting edema, L>R NEUROLOGICAL: AAOx3, Normal speech. No facial droop, no lateralizing signs, moves all limbs. Gait not observed. CBCD WBC 5.5 K/mm3 (4.0-10.0) 12/29/17 17:08 RBC 2.85 M/mm3 (3.60-5.2) L 12/29/17 17:08 Hgb 9.3 GM/dL (10.7-15.3) L 12/29/17 17:08 Hct 28.2 % (32.4-45.2) L 12/29/17 17:08 MCV 98.9 fl (80-96) H 12/29/17 17:08 MCHC 33.1 g/dl (32.0-36.0) 12/29/17 17:08 RDW 19.5 % (11.6-15.6) H 12/29/17 17:08 Plt Count 13 K/MM3 (134-434) L* D 12/29/17 17:08 MPV 9.2 fl (7.5-11.1) 12/29/17 17:08 CMP Sodium 140 mmol/L (136-145) 12/29/17 16:18 Potassium 3.2 mmol/L (3.5-5.1) L 12/29/17 16:18 Chloride 106 mmol/L (98-107) 12/29/17 16:18 Carbon Dioxide 25 mmol/L (21-32) 12/29/17 16:18 Anion Gap 9 (8-16) 12/29/17 16:18 BUN 8 mg/dL (7-18) 12/29/17 16:18 Creatinine 0.7 mg/dL (0.55-1.02) 12/29/17 16:18 Creat Clearance w eGFR > 60 (>60) 12/29/17 16:18 Random Glucose 94 mg/dL (74-106) 12/29/17 16:18 Calcium 7.7 mg/dL (8.5-10.1) L 12/29/17 16:18 Total Bilirubin 0.4 mg/dL (0.2-1.0) 12/29/17 16:18 AST 18 U/L (15-37) 12/29/17 16:18 ALT 23 U/L (12-78) 12/29/17 16:18 Alkaline Phosphatase 69 U/L (45-117) D 12/29/17 16:18 Total Protein 5.3 g/dl (6.4-8.2) L 12/29/17 16:18 Albumin 2.5 g/dl (3.4-5.0) L 12/29/17 16:18 Home Medications Medication Instructions Recorded Alprazolam [Xanax] 0.25 mg PO BID 10/18/17 Ondansetron [Zofran *Odt*] 8 mg PO Q12H PRN #30 tab.rapdis 11/23/17 Tramadol HCl 50 mg PO QID PRN 11/27/17 EKG- Afib with RVR rate of 105 , QTc-449, no GLO/STD ASSESSMENT AND PLAN: Patient is an 82 yo F with PMHx of rectal cancer(on radiation/chemotherapy), HTN (off medication), UTIs, and anxiety, presenting to the ED with generalized weakness and diarrhea x 1 week. While in ED. was found to have atrial fibrillation with RVR rate of 120's. # AFib with RVR , patient can't be anticoagulated with platelets of 13K, IVF for now, Lopressor 25mg po BID with holding parameters SBP less than 100 and HR less than 60. cardio consult # Acute severe thrombocytopenia discussed with oncologist/president celebrity acquistion Dr.Mark Johns , to give s a single donor platelts since patient is also bleeding rectally due to her RTx thearpy # ACute Diarrhea most likely due to Chemo/Rtx will continue her Imodium po # Hxof Chemo/Rtx oncology consult in am # Swelling of lower extremities L>R as per patient that is normal for her , will order duplex to r/o DVT DVT Px: No anticoagulation since bleeding with platetelets # are 13K will check her TSH, FT4, duplex transfuse.
[2017-12-29 18:29] LABS: ANISOCYTOSIS 1+; MACROCYTOSIS 1+
[2017-12-29 18:30] LABS: PLATELET ESTIMATE SIGNIFICANT DECREASE
[2017-12-29] MEDS ORDERED: METOPROLOL TARTRATE 25 MG TABLET (FP) PO SCH (19:00)
[2017-12-29] MEDS ORDERED: METOPROLOL TARTRATE 25 MG TABLET (FP) ONE (19:13)
[2017-12-29] MEDS ORDERED: SODIUM CHLORIDE 1,000 ML IV SCH (19:30)
[2017-12-29] MEDS: ONDANSETRON *ODT* 4 MG TABLET SL PRN (19:58)
[2017-12-29] MEDS: SODIUM CHLORIDE 1,000 ML IV SCH (20:03)
[2017-12-29] MEDS: METOPROLOL TARTRATE 25 MG TABLET (FP) PO SCH (22:14)
[2017-12-30] MEDS: SODIUM CHLORIDE 1,000 ML IV SCH (02:35)
[2017-12-30 06:54] LABS: INR 1.36 (0.82-1.09); PROTHROMBIN TIME (PATIENT) 15.4 SEC (9.7-13.0)
[2017-12-30 06:57] LABS: ACTIVATED PTT 24.7 SECONDS (25.2-36.5)
[2017-12-30 07:06] LABS: BASO % 0.3 % (0-2.0); HEMATOCRIT 23.2 % (32.4-45.2); HEMOGLOBIN 7.9 GM/dL (10.7-15.3); LYMPH % 5.5 % (8-40); MCH 34.2 pg (25.7-33.7); MCHC 34.3 g/dl (32.0-36.0); MEAN CELL VOLUME 99.8 fl (80-96); MEAN PLT VOLUME 8.4 fl (7.5-11.1); MONO % 15.5 % (3.8-10.2); NEUT % 77.7 % (42.8-82.8); PLATELET COUNT 44 K/MM3 (134-434); RBC 2.33 M/mm3 (3.60-5.2); RDW 20.9 % (11.6-15.6); WHITE BLOOD COUNT 4.1 K/mm3 (4.0-10.0)
[2017-12-30 07:09] LABS: CHLORIDE 110 mmol/L (98-107); POTASSIUM 3.9 mmol/L (3.5-5.1); SODIUM 143 mmol/L (136-145)
[2017-12-30 07:27] LABS: ALBUMIN 1.8 g/dl (3.4-5.0); ALK PHOS 61 U/L (45-117); ANION GAP 9 (8-16); BILIRUBIN,TOTAL 0.4 mg/dL (0.2-1.0); BLOOD UREA NITROGEN 9 mg/dL (7-18); CALCIUM 7.4 mg/dL (8.5-10.1); CO2 24 mmol/L (21-32); CREATININE 0.6 mg/dL (0.55-1.02); GLUCOSE,RANDOM 86 mg/dL (74-106); MAGNESIUM 1.7 mg/dL (1.8-2.4); PHOSPHOROUS 1.9 mg/dL (2.5-4.9); SGOT/AST 18 U/L (15-37); SGPT/ALT 21 U/L (12-78); TOT PROT 4.9 g/dl (6.4-8.2)
[2017-12-30 08:57] LABS: ANISOCYTOSIS 1+; MACROCYTOSIS 1+; PLATELET ESTIMATE DECREASED
[2017-12-30] MEDS: METOPROLOL TARTRATE 25 MG TABLET (FP) PO SCH ×2 (10:39→21:01)
--- NOTE | 2017-12-30 10:39 | EKG ---
Test Reason : Blood Pressure : / mmHG Vent. Rate : 105 BPM Atrial Rate : 117 BPM P-R Int : 000 ms QRS Dur : 072 ms QT Int : 340 ms P-R-T Axes : 000 021 -10 degrees QTc Int : 449 ms ATRIAL FIBRILLATION WITH RAPID VENTRICULAR RESPONSE ABNORMAL ECG WHEN COMPARED WITH ECG OF 16-DEC-2017 10:55, ATRIAL FIBRILLATION HAS REPLACED SINUS RHYTHM VENT. RATE HAS INCREASED Confirmed by JOSE JUAN BENTON MD ([id number]) on 12/30/2017 10:39:13 AM Referred By: Confirmed By:JOSE JUAN BENTON MD
--- NOTE | 2017-12-30 10:44 | CONSULT ---
Consult Consult Specialty:: Oncology-Hematoloagy Referred by:: Hospitalist Reason for Consultation:: Anal ca under therapy - History Source History Provided By: Medical Record - Past Medical History Cardio/Vascular: Yes: HTN Gastrointestinal: Yes: Diverticulosis, GI Bleed Renal/: Yes: Hematuria ...: 3 ...Para: 2 (1 ectopic) Heme/Onc: Yes: Cancer, Other (Squamous cell ca of anus) Psych: Yes: Anxiety Rheumatology: Yes: Fibromyalgia - Past Surgical History Past Surgical History: Yes: Hysterectomy, Joint Replacement (right knee) - Alcohol/Substance Use Hx Alcohol Use: No History of Substance Use: reports: None - Smoking History Smoking history: Never smoked Have you smoked in the past 12 months: No - Social History Usual Living Arrangement: Alone ADL: Independent 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 Home Medications - Allergies Allergies/Adverse Reactions: Allergies Allergy/AdvReac Type Severity Reaction Status Date / Time Sulfa (Sulfonamide Allergy Verified 11/26/17 11:06 Antibiotics) - Home Medications Home Medications: Ambulatory Orders Alprazolam [Xanax] 0.25 mg PO BID 10/18/17 Ondansetron [Zofran *Odt*] 8 mg PO Q12H PRN #30 tab.rapdis 11/23/17 Tramadol HCl 50 mg PO QID PRN 11/27/17 Family Disease History - Family Disease History Family Disease History: CA: Father (leukemia), Sister (breast cancer), Other: Mother (alzheimer) Review of Systems - Review of Systems Constitutional: reports: Loss of Appetite, Malaise, Unintentional Wgt. Loss, Weakness Eyes: denies: Blurred Vision, Double Vision, Recent Change in Vision HENT: denies: Difficult Swallowing, Epistaxis, Mouth Swelling, Throat Pain Neck: denies: Stiffness, Tenderness Cardiovascular: denies: Chest Pain, Palpitations Respiratory: denies: Cough, Exercise Intolerance, Hemoptysis, SOB, SOB on Exertion Gastrointestinal: reports: Abdominal Pain, Diarrhea, Rectal Bleeding Genitourinary: reports: Testicular Pain. denies: Burning, Dysuria, Flank Pain, Frequency, Incontinence Musculoskeletal: reports: No Symptoms, Muscle Weakness Integumentary: reports: Incision Endocrine: reports: No Symptoms Hematology/Lymphatic: denies: Easily Bruised, Excessive Bleeding, Swollen Glands Psychiatric: reports: Anxiety Physical Exam Vital Signs: Vital Signs Temperature 98.7 F 12/30/17 09:34 Pulse Rate 88 12/30/17 09:34 Respiratory Rate 17 12/30/17 09:34 Blood Pressure 117/56 12/30/17 09:34 O2 Sat by Pulse Oximetry (%) 95 12/30/17 09:00 Constitutional: Yes: Mild Distress Eyes: Yes: EOM Intact, PERRL. No: Diplopia, Ptosis, Sclera Icterus HENT: Yes: Atraumatic, Normocephalic. No: Epistaxis, Hoarseness, Pharyngeal Erythema, Thrush, Tonsillar Exudate Neck: Yes: Supple, Trachea Midline. No: Lymphadenopathy, Tenderness, Thyromegaly Cardiovascular: Yes: Regular Rate and Rhythm Respiratory: Yes: CTA Bilaterally, Diminished Gastrointestinal: Yes: Normal Bowel Sounds, Soft. No: Ascites, Hepatomegaly, Splenomegaly, Tenderness ...Rectal Exam: Yes: Deferred, Other (erythema anal area with excoriation) Breast(s): Yes: WNL Musculoskeletal: Yes: Muscle Weakness. 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 Recently completed a course of 4 days of 5FU and one day of Mitomycin. Daily RT. Would give prn immodium - 1 tab p.o. after each loose BM. Culture stool as well . Source is likely secondary to therapy. Code(s): R19.7 - DIARRHEA, UNSPECIFIED Qualifiers: Diarrhea type: unspecified type Qualified Code(s): R19.7 - Diarrhea, unspecified (2) Thrombocytopenia Assessment/Plan: Secondary to RT and chemotherapy. Monitor. PRN transfusions for platelets < 20K. S/P one unit transfused. Code(s): D69.6 - THROMBOCYTOPENIA, UNSPECIFIED (3) Rectal bleeding Assessment/Plan: Secondary to treatment and anal squamous ca. Would transfuse one unit of packed cells. Code(s): K62.5 - HEMORRHAGE OF ANUS AND RECTUM (4) Dehydration Assessment/Plan: Has not eaten x several days. and with diarrhea Hydration. Code(s): E86.0 - DEHYDRATION
[2017-12-30] MEDS: ALPRAZolam 0.25 MG TABLET PO PRN ×2 (11:00→21:01)
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
[2017-12-30] MEDS: ONDANSETRON *ODT* 4 MG TABLET SL PRN ×2 (13:03→17:58)
--- NOTE | 2017-12-30 14:26 | PN ---
Teaching Attending Note Name of Resident: Bala Bello ATTENDING PHYSICIAN STATEMENT I saw and evaluated the patient. I reviewed the resident's note and discussed the case with the resident. I agree with the resident's findings and plan as documented. SUBJECTIVE:overall feels better, states her appetite remains poor. continues to have diarrhea but stable. intermittent rectal bleeding has not noticed increased passage of blood or clots. denies Cp, SOB, fever, chills, N/V/C OBJECTIVE: Last Vital Signs Temp Pulse Resp BP Pulse Ox 98.7 F 88 17 117/56 95 12/30/17 09:34 12/30/17 09:34 12/30/17 09:34 12/30/17 09:34 12/30/17 09:00 General NAD CV S1 S2 irregular, no murmur Lungs CTA B/L no wheezing/rales/rhonchi Abdomen soft NT/ND Extremities non pitting edema B/L no calf tenderness ASSESSMENT AND PLAN: 82yo F with PMH rectal ca s/p RTx/chemo, anxiety, presented to the ER with generalized weakness and diarrhea and found to be in Afib with RVR 1. Afib with RVR- possible induced by dehydration however can not r/o ischemia. rate improved. TSH WNL. [id number] >2. d/w with patient and daughter about risks of stroke vs bleeding. would hold anticoagulation at this time in setting of acute anemia and thrombocytopenia. d/w cardio and hematology about risk/ benefit ratio. check Echo. cardiac monitoring 2. Acute blood loss anemia- due to rectal bleeding from Rtx. currently receiving 1 unit PRBC. will check post-transfusion PRBC. will have to hold iron studies at this time. evaluate if done recently or can be checked in 3 days. txn for hgb <9 3. Thrombocytopenia- due to malignancy and chemo. s/p 1 unit Platelets with good response. monitor carefully. txn for platelet count < 20K 4. Anorexia- due to malignancy. will start megace. titrate up as needed. encourage po intake. dietary consult 5. Diarrhea- due to rtx. now worse than baseline. give loperamide prn 6. pedal edema- no calf tenderness. doppler neg for DVT 7. Dehydration- improved. tolerating diet. d/c IVF 8. hypokalemia- resolved 9. rectal ca s/p RTx and chemo- hematology on board. f/u outpatient 10. DVT ppx- SCD 11. spoke with daughter present at bedside. all questions answered. verbalized understanding and agreement
[2017-12-30 17:58] LABS: BASO % 0.1 % (0-2.0); EOS % 0.6 % (0-4.5); HEMATOCRIT 29.3 % (32.4-45.2); HEMOGLOBIN 9.6 GM/dL (10.7-15.3); LYMPH % 4.3 % (8-40); MCHC 32.9 g/dl (32.0-36.0); MEAN CELL VOLUME 97.3 fl (80-96); MEAN PLT VOLUME 9.5 fl (7.5-11.1); MONO % 14.7 % (3.8-10.2); NEUT % 80.3 % (42.8-82.8); PLATELET COUNT 42 K/MM3 (134-434); RBC 3.01 M/mm3 (3.60-5.2); RDW 20.5 % (11.6-15.6); WHITE BLOOD COUNT 5.2 K/mm3 (4.0-10.0)
[2017-12-30] MEDS: MEGESTROL ACETATE 400 MG/10 ML UNIT DOSE CUP PO SCH (18:01)
--- NOTE | 2017-12-30 19:02 | PN ---
Physical Exam: SUBJECTIVE: Patient seen and examined. Pt. had no complaints overnight other than diarrhea, nausea and the inability to eat or drink. She stated that this was normal following chemotherapy. Pt. was able to walk to the bathroom. Pt. stated that her radiation would between her gluteal folds was getting better. OBJECTIVE: Vital Signs Period Temp Pulse Resp BP Sys/Rao Pulse Ox Last 24 Hr 98.0 F-98.7 F 61-104 16-20 103-137/48-82 95-100 GENERAL: The patient is awake, alert, and fully oriented, in no acute distress. HEAD: Normal with no signs of trauma. LUNGS: Right sided crackles HEART: Regular rate and rhythm, S1, S2 without murmur, rub or gallop. Capillary refill was less than 2 seconds. EXTREMITIES: Mild bruises on the left ankle, no edema, no tenderness on lower extremities NEUROLOGICAL: Cranial nerves II through XII grossly intact. Normal speech, gait not observed. PSYCH: Normal mood, normal affect. Genitourinary: wound is healing, no purulence or discharge, mild erythema Laboratory Results - last 24 hr 12/29/17 12/29/17 12/29/17 21:15 21:35 21:35 WBC RBC Hgb Hct MCV MCH MCHC RDW Plt Count MPV Absolute Neuts (auto) Neutrophils % Neutrophils % (Manual) Band Neutrophils % Lymphocytes % Lymphocytes % (Manual) Monocytes % Monocytes % (Manual) Eosinophils % Eosinophils % (Manual) Basophils % Basophils % (Manual) Myelocytes % (Man) Promyelocytes % (Man) Blast Cells % (Manual) Nucleated RBC % Metamyelocytes Platelet Estimate Poikilocytosis Anisocytosis Microcytosis Macrocytosis PT with INR INR PTT (Actin FS) Sodium Potassium Chloride Carbon Dioxide Anion Gap BUN Creatinine Creat Clearance w eGFR Random Glucose Calcium Phosphorus 2.1 L Magnesium 1.7 L Total Bilirubin AST ALT Alkaline Phosphatase Creatine Kinase Troponin I Total Protein Albumin TSH Free T4 Blood Type O POSITIVE Antibody Screen Negative Crossmatch See Detail 12/30/17 12/30/17 12/30/17 05:30 05:30 05:30 WBC 4.1 RBC 2.33 L Hgb 7.9 L Hct 23.2 L D MCV 99.8 H MCH 34.2 H MCHC 34.3 RDW 20.9 H Plt Count 44 L D MPV 8.4 Absolute Neuts (auto) 3.2 Neutrophils % 77.7 Neutrophils % (Manual) 73.5 Band Neutrophils % 10.2 Lymphocytes % 5.5 L D Lymphocytes % (Manual) 3.1 L D Monocytes % 15.5 H Monocytes % (Manual) 9 Eosinophils % 1.0 Eosinophils % (Manual) 3.0 D Basophils % 0.3 Basophils % (Manual) 1.0 D Myelocytes % (Man) 0 Promyelocytes % (Man) 0 D Blast Cells % (Manual) 0 Nucleated RBC % 0 Metamyelocytes 0 Platelet Estimate Decreased Poikilocytosis 1+ Anisocytosis 1+ Microcytosis 1+ Macrocytosis 1+ PT with INR 15.40 H INR 1.36 H PTT (Actin FS) 24.7 L Sodium 143 Potassium 3.9 Chloride 110 H Carbon Dioxide 24 Anion Gap 9 BUN 9 Creatinine 0.6 Creat Clearance w eGFR > 60 Random Glucose 86 Calcium 7.4 L Phosphorus 1.9 L Magnesium 1.7 L Total Bilirubin 0.4 AST 18 ALT 21 Alkaline Phosphatase 61 Creatine Kinase Troponin I Total Protein 4.9 L Albumin 1.8 L TSH Free T4 Blood Type Antibody Screen Crossmatch 12/30/17 12/30/17 12/30/17 06:30 06:30 16:30 WBC 5.2 RBC 3.01 L Hgb 9.6 L Hct 29.3 L D MCV 97.3 H MCH 32.0 MCHC 32.9 RDW 20.5 H Plt Count 42 L MPV 9.5 D Absolute Neuts (auto) 4.2 Neutrophils % 80.3 Neutrophils % (Manual) Band Neutrophils % Lymphocytes % 4.3 L D Lymphocytes % (Manual) Monocytes % 14.7 H Monocytes % (Manual) Eosinophils % 0.6 Eosinophils % (Manual) Basophils % 0.1 Basophils % (Manual) Myelocytes % (Man) Promyelocytes % (Man) Blast Cells % (Manual) Nucleated RBC % 0 Metamyelocytes Platelet Estimate Poikilocytosis Anisocytosis Microcytosis Macrocytosis PT with INR INR PTT (Actin FS) Sodium Potassium Chloride Carbon Dioxide Anion Gap BUN Creatinine Creat Clearance w eGFR Random Glucose Calcium Phosphorus Magnesium Total Bilirubin AST ALT Alkaline Phosphatase Creatine Kinase 24 L Troponin I 0.03 Total Protein Albumin TSH 3.17 Free T4 1.51 H Blood Type Antibody Screen Crossmatch EKG: Afib w/ RVR. A-fib replaced normal sinus rhythm as compared to a previous EKG done on December 16, 2017. Active Medications Current Medications Alprazolam (Xanax -) 0.25 mg PO Q8H PRN PRN Reason: ANXIETY Last Admin: 12/30/17 11:00 Dose: 0.25 mg Loperamide HCl (Imodium -) 4 mg PO Q6H PRN PRN Reason: DIARRHEA Megestrol Acetate (Megace Oral Suspension -) 400 mg PO DAILY [facility] Last Admin: 12/30/17 18:01 Dose: 400 mg Metoprolol Tartrate (Lopressor -) 25 mg PO BID [facility] Last Admin: 12/30/17 10:39 Dose: 25 mg Ondansetron HCl (Zofran Odt -) 4 mg SL Q6H PRN PRN Reason: NAUSEA AND/OR VOMITING Last Admin: 12/30/17 17:58 Dose: 4 mg ASSESSMENT/PLAN: Pt is an 82 yo F with a significant PMHx of ano/rectal cancer(on radiation/ chemotherapy), HTN (off medication), UTIs, and anxiety, presenting to the ED with generalized weakness and diarrhea x 1 week. #Generalized weakness -Likely 2/2 to poor PO intake -Pt lives alone and has been unable to cook and feed herself due to increased weakness from diarrhea -Iv normal saline 2L- in ED -Cont NS- 125/hr - s/p chemotherapy - started Megace for appetite stimulant #Diarrhea -Likely 2/2 to radio and chemo therapy -Cont NS -Imodium #Nausea -c/w Ondansetron PRN - 125mls/hr NS - monitor lytes - started Megace for appetite stimulant #Thrombocytopenia -As low as 13k , platelets have increased to 44k -Start type and screen -transfuse single donor platelets 1 unit, Dr. Oneil ordered 1 unit pRBCs - f/u CBC after transfusion -Monitor CBCs -Fall precautions #Afib Lopressor 25mg bid [place] Cannot be anticoagulated with 13,000 Platelets #Anxiety -Xanax 0.25mg bid PRN #HTN -Has had labile HTN and stopped lisinopril (let Dr Oneil know) -Cont Lopressor 25mg PO bid #LLE edema -L venous duplex US done, no DVT noted #ano/rectal cancer(on radiation/chemotherapy) -Hemonc f/u - wound care, monitor for infection #FEN NS @125/hr Monitor Lytes and replete as needed Regular diet #PPX -SCDs only -No chemical PPx with thrombocytopenia #Dispo Pt. in telemetry Visit type - Emergency Visit Emergency Visit: Yes ED Registration Date: 12/29/17 Care time: The patient presented to the Emergency Department on the above date and was hospitalized for further evaluation of their emergent condition. - New Patient This patient is new to me today: Yes Date on this admission: 12/30/17 - Critical Care Critical Care patient: No - Discharge Referral Referred to [facility] No
[2017-12-30 19:25] LABS: PLATELET ESTIMATE DECREASED
[2017-12-30] MEDS: LOPERAMIDE HCL 2 MG CAPSULE PO PRN (21:01)
[2017-12-31] MEDS: LOPERAMIDE HCL 2 MG CAPSULE PO PRN (06:03)
[2017-12-31 07:31] LABS: BASO % 0.2 % (0-2.0); EOS % 0.9 % (0-4.5); HEMATOCRIT 28.6 % (32.4-45.2); HEMOGLOBIN 9.8 GM/dL (10.7-15.3); LYMPH % 5.6 % (8-40); MCH 32.7 pg (25.7-33.7); MCHC 34.2 g/dl (32.0-36.0); MEAN CELL VOLUME 95.6 fl (80-96); MONO % 13.6 % (3.8-10.2); NEUT % 79.7 % (42.8-82.8); RDW 19.9 % (11.6-15.6); WHITE BLOOD COUNT 4.7 K/mm3 (4.0-10.0)
[2017-12-31 07:45] LABS: PLATELET COUNT 32 K/MM3 (134-434)
[2017-12-31 07:53] LABS: ALBUMIN 2.3 g/dl (3.4-5.0); ANION GAP 8 (8-16); BLOOD UREA NITROGEN 8 mg/dL (7-18); CALCIUM 7.4 mg/dL (8.5-10.1); CHLORIDE 105 mmol/L (98-107); CO2 25 mmol/L (21-32); GLUCOSE,RANDOM 82 mg/dL (74-106); MAGNESIUM 1.7 mg/dL (1.8-2.4); POTASSIUM 3.3 mmol/L (3.5-5.1); SODIUM 138 mmol/L (136-145)
[2017-12-31 08:22] LABS: ALK PHOS 65 U/L (45-117); BILIRUBIN,TOTAL 0.7 mg/dL (0.2-1.0); CREATININE 0.6 mg/dL (0.55-1.02); SGOT/AST 21 U/L (15-37); SGPT/ALT 22 U/L (12-78)
[2017-12-31] MEDS ORDERED: POTASSIUM CHLORIDE ORAL LIQUID 20 MEQ/15 ML PO ONE (08:39)
[2017-12-31] MEDS ORDERED: PT OWN MED DRAWER 7, Y5N ONE (08:54)
[2017-12-31] MEDS: METOPROLOL TARTRATE 25 MG TABLET (FP) PO SCH ×2 (09:09→22:20)
[2017-12-31] MEDS: MEGESTROL ACETATE 400 MG/10 ML UNIT DOSE CUP PO SCH (09:09)
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
[2017-12-31] MEDS: ONDANSETRON *ODT* 4 MG TABLET SL PRN ×2 (11:35→22:20)
[2017-12-31 12:26] LABS: BASO % 0.2 % (0-2.0); EOS % 0.6 % (0-4.5); HEMATOCRIT 30.6 % (32.4-45.2); HEMOGLOBIN 10.4 GM/dL (10.7-15.3); LYMPH % 5.6 % (8-40); MCH 32.8 pg (25.7-33.7); MEAN CELL VOLUME 96.3 fl (80-96); MEAN PLT VOLUME 8.7 fl (7.5-11.1); NEUT % 81.6 % (42.8-82.8); RBC 3.18 M/mm3 (3.60-5.2); WHITE BLOOD COUNT 6.1 K/mm3 (4.0-10.0)
[2017-12-31 12:30] LABS: PLATELET COUNT 31 K/MM3 (134-434)
[2017-12-31] MEDS ORDERED: MAGNESIUM SULFATE IN WATER 2 GM/50 ML IVPB IVPB ONE (12:30)
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
--- NOTE | 2017-12-31 19:03 | PN ---
Teaching Attending Note Name of Resident: Bala Bello ATTENDING PHYSICIAN STATEMENT I saw and evaluated the patient. I reviewed the resident's note and discussed the case with the resident. I agree with the resident's findings and plan as documented with exceptions below. SUBJECTIVE: Patient seen and examined. still weakness, poor appetite, no hematochezia, dizziness noted. OBJECTIVE: Vital Signs Period Temp Pulse Resp BP Sys/Rao Pulse Ox Last 24 Hr 97.6 F-99.0 F 71-106 16-20 99-122/62-67 93-93 Intake & Output 12/28/17 12/29/17 12/30/17 12/31/17 23:59 23:59 23:59 23:59 Intake Total 1000 2271 580 Balance 1000 2271 580 Weight 155 lb 3.2 oz 157 lb 9.6 oz 158 lb 8 oz General: sitting in bed in no acute distress Chest: no rales or wheezing Abdomen: soft, NT, nD Extremities: trace non pitting edema Home Medications Medication Instructions Recorded Alprazolam [Xanax] 0.25 mg PO BID 10/18/17 Tramadol HCl 50 mg PO QID PRN 11/27/17 Lidocaine [Lc-4] 50 g TP DAILY 12/31/17 Lisinopril/Hydrochlorothiazide 0.5 mg PO DAILY 12/31/17 [Lisinopril-Hctz 10-12.5 mg Tab] Nystatin Oral Suspension - 5 ml Q6H 12/31/17 [Nystatin Oral Susp 156840 Units/5 ML -] Ondansetron [Zofran *Odt*] 8 mg PO Q8H PRN 12/31/17 Silver Sulfadiazine 1% Top Cr 1 tube TP QID 12/31/17 [Silvadene -] Sucralfate [Carafate] 10 ml PO BID 12/31/17 Active Medications Alprazolam (Xanax -) 0.25 mg PO Q8H PRN PRN Reason: ANXIETY Last Admin: 12/30/17 21:01 Dose: 0.25 mg Loperamide HCl (Imodium -) 4 mg PO Q6H PRN PRN Reason: DIARRHEA Last Admin: 12/31/17 06:03 Dose: 4 mg Megestrol Acetate (Megace Oral Suspension -) 400 mg PO DAILY JAKUB Last Admin: 12/31/17 09:09 Dose: 400 mg Metoprolol Tartrate (Lopressor -) 25 mg PO BID JAKUB Last Admin: 12/31/17 09:09 Dose: 25 mg Ondansetron HCl (Zofran Odt -) 4 mg SL Q6H PRN PRN Reason: NAUSEA AND/OR VOMITING Last Admin: 12/31/17 11:35 Dose: 4 mg Laboratory Results - last 24 hr 12/30/17 12/31/17 12/31/17 16:30 06:15 06:15 WBC 4.7 RBC 3.00 L Hgb 9.8 L Hct 28.6 L MCV 95.6 MCH 32.7 MCHC 34.2 RDW 19.9 H Plt Count 32 L* D MPV 9.0 Absolute Neuts (auto) 3.8 Neutrophils % 79.7 Neutrophils % (Manual) 72.0 Band Neutrophils % 5.0 Lymphocytes % 5.6 L D Lymphocytes % (Manual) 9.0 D Monocytes % 13.6 H Monocytes % (Manual) 12 H Eosinophils % 0.9 Eosinophils % (Manual) 2.0 Basophils % 0.2 Nucleated RBC % 0 Platelet Estimate Decreased Platelet Comment No clumping noted Sodium 138 Potassium 3.3 L Chloride 105 Carbon Dioxide 25 Anion Gap 8 BUN 8 Creatinine 0.6 Creat Clearance w eGFR > 60 Random Glucose 82 Calcium 7.4 L Magnesium 1.7 L Total Bilirubin 0.7 AST 21 ALT 22 Alkaline Phosphatase 65 Total Protein 5.0 L Albumin 2.3 L TSH 3.05 12/31/17 12:10 WBC 6.1 RBC 3.18 L Hgb 10.4 L Hct 30.6 L MCV 96.3 H MCH 32.8 MCHC 34.0 RDW 20.0 H Plt Count 31 L* MPV 8.7 Absolute Neuts (auto) 5.0 Neutrophils % 81.6 Neutrophils % (Manual) Band Neutrophils % Lymphocytes % 5.6 L Lymphocytes % (Manual) Monocytes % 12.0 H Monocytes % (Manual) Eosinophils % 0.6 Eosinophils % (Manual) Basophils % 0.2 Nucleated RBC % 0 Platelet Estimate Platelet Comment Sodium Potassium Chloride Carbon Dioxide Anion Gap BUN Creatinine Creat Clearance w eGFR Random Glucose Calcium Magnesium Total Bilirubin AST ALT Alkaline Phosphatase Total Protein Albumin TSH ASSESSMENT AND PLAN: 82yo F with PMH rectal ca s/p RTx/chemo, anxiety, presented to the ER with generalized weakness and diarrhea and found to be in Afib with RVR -Failure to thrive/diarrhea/hypokalemia/dehydration from chemoradiation/Anal squamous cell Ca -Afib with RVR, new onset, now rate controlled -thrombocytopenia, likely from chemotherapy -Anemia, multifactoria, from acute blood loss from Anal mass and chemotherapy -Malnutrition -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 Oncology input noted. Loperamide prn. Cardiology input noted, metoprolol. Risk of AC outweigh benefits currently, discussed in detail with patient. s/p 1 units of PRBC and platelets. Monitor CBC. Watch for bleeding. replete K prn. DVTPPX SCDs PT eval, Dispo pending clinical improvement and dispositon arrangements. Plan discussed with patient in detail, all questions answered.
--- NOTE | 2017-12-31 19:53 | PN ---
Progress Note (short form) - Note Progress Note: Patient seen and examined Continues with diarrhea and cramps intermittently Poor p.o. intake of both solids and liquids Last Vital Signs Temp Pulse Resp BP Pulse Ox 97.5 F L 96 H 20 105/64 93 L 12/31/17 17:00 12/31/17 17:00 12/31/17 17:00 12/31/17 17:00 12/31/17 07:23 HEENT: LAISHA, EOM Intact Oropharynx: No thrush, No mucositis Cor:atrial fib Lungs: Clear to P&A; few scattered rales Abd: Soft, Normal bowel sounds, No organomegaly Ext:No significant edema Skin: No rashes, Integument intact CBC, BMP 12/31/17 12:10 12/31/17 06:15 Current Medications Generic Name Dose Route Start Last Admin Trade Name Freq PRN Reason Stop Dose Admin Alprazolam 0.25 mg 12/30/17 10:50 12/30/17 21:01 Xanax - PO 0.25 mg Q8H PRN Administration ANXIETY Loperamide HCl 4 mg 12/29/17 19:33 12/31/17 06:03 Imodium - PO 4 mg Q6H PRN Administration DIARRHEA Megestrol Acetate 400 mg 12/30/17 14:30 12/31/17 09:09 Megace Oral Suspension - PO 400 mg DAILY JAKUB Administration Metoprolol Tartrate 25 mg 12/29/17 22:00 12/31/17 09:09 Lopressor - PO 25 mg BID JAKUB Administration Ondansetron HCl 4 mg 12/29/17 19:34 12/31/17 11:35 Zofran Odt - SL 4 mg Q6H PRN Administration NAUSEA AND/OR VOMITING Impression Anal cancer Chemotherapy/RT toxicity Anemia Thrombocytopenia Poor nutrition GI toxicity secondary to treatment Atrial fib Continue IV's /nutritional support Platelets prn < 20K Holding a/c Malignancy/sedentary(bedrest) /chemotherapy/RT/megace---> thrombogenic Holding RT/chemoRx. Monitor chems and CBC Problem List - Problems (1) Diarrhea Code(s): R19.7 - DIARRHEA, UNSPECIFIED Qualifiers: Diarrhea type: unspecified type Qualified Code(s): R19.7 - Diarrhea, unspecified (2) Thrombocytopenia Code(s): D69.6 - THROMBOCYTOPENIA, UNSPECIFIED (3) Rectal bleeding Code(s): K62.5 - HEMORRHAGE OF ANUS AND RECTUM (4) Dehydration Code(s): E86.0 - DEHYDRATION
[2017-12-31] MEDS: ALPRAZolam 0.25 MG TABLET PO PRN (22:20)
[2018-01-01 05:26] VITALS: BMI 26.2
[2018-01-01 06:33] LABS: HEMATOCRIT 27.7 % (32.4-45.2); HEMOGLOBIN 9.5 GM/dL (10.7-15.3); MCH 32.7 pg (25.7-33.7); MCHC 34.1 g/dl (32.0-36.0); MEAN CELL VOLUME 95.8 fl (80-96); MEAN PLT VOLUME 10.5 fl (7.5-11.1); RBC 2.89 M/mm3 (3.60-5.2); RDW 19.8 % (11.6-15.6); WHITE BLOOD COUNT 4.2 K/mm3 (4.0-10.0)
[2018-01-01 06:56] LABS: PLATELET COUNT 25 K/MM3 (134-434)
[2018-01-01 07:09] LABS: CHLORIDE 106 mmol/L (98-107); POTASSIUM 3.5 mmol/L (3.5-5.1); SODIUM 139 mmol/L (136-145)
[2018-01-01 07:18] LABS: ALBUMIN 2.2 g/dl (3.4-5.0); ALK PHOS 65 U/L (45-117); ANION GAP 8 (8-16); BILIRUBIN,TOTAL 0.6 mg/dL (0.2-1.0); BLOOD UREA NITROGEN 9 mg/dL (7-18); CALCIUM 7.3 mg/dL (8.5-10.1); CO2 25 mmol/L (21-32); CREATININE 0.6 mg/dL (0.55-1.02); GLUCOSE,RANDOM 80 mg/dL (74-106); SGOT/AST 18 U/L (15-37); SGPT/ALT 20 U/L (12-78); TOT PROT 4.7 g/dl (6.4-8.2)
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
[2018-01-01] MEDS: METOPROLOL TARTRATE 25 MG TABLET (FP) PO SCH ×2 (09:29→22:06)
[2018-01-01] MEDS: MEGESTROL ACETATE 400 MG/10 ML UNIT DOSE CUP PO SCH (09:30)
--- NOTE | 2018-01-01 10:26 | PN ---
Progress Note (short form) - Note Progress Note: Patient seen and examined Clinically improved Complains of some constipation and not diarrhea No chest pains or SOB Last Vital Signs Temp Pulse Resp BP Pulse Ox 97.8 F 109 H 17 115/56 94 L 01/01/18 09:31 01/01/18 09:31 01/01/18 09:31 01/01/18 09:31 12/31/17 21:00 HEENT: LAISHA, EOM Intact Oropharynx: No thrush, No mucositis Cor: irregular Lungs: scattered wheeze Abd: Soft, Normal bowel sounds, No organomegaly Ext:No significant edema Skin: No rashes, Integument intact CBC, BMP 01/01/18 05:30 01/01/18 05:30 Current Medications Generic Name Dose Route Start Last Admin Trade Name Freq PRN Reason Stop Dose Admin Alprazolam 0.25 mg 12/30/17 10:50 12/31/17 22:20 Xanax - PO 0.25 mg Q8H PRN Administration ANXIETY Loperamide HCl 4 mg 12/29/17 19:33 12/31/17 06:03 Imodium - PO 4 mg Q6H PRN Administration DIARRHEA Megestrol Acetate 400 mg 12/30/17 14:30 01/01/18 09:30 Megace Oral Suspension - PO 400 mg DAILY JAKUB Administration Metoprolol Tartrate 25 mg 12/29/17 22:00 01/01/18 09:29 Lopressor - PO 25 mg BID JAKUB Administration Ondansetron HCl 4 mg 12/29/17 19:34 12/31/17 22:20 Zofran Odt - SL 4 mg Q6H PRN Administration NAUSEA AND/OR VOMITING Impression: Anal carcinoma RT/Chemotherapy Anemia Thrombocytopenia GI toxicity form RT/chemotherapy A.F. Plan: Continued monitoring Transfuse platelets if < 20K Problem List - Problems (1) Diarrhea Code(s): R19.7 - DIARRHEA, UNSPECIFIED Qualifiers: Diarrhea type: unspecified type Qualified Code(s): R19.7 - Diarrhea, unspecified (2) Thrombocytopenia Code(s): D69.6 - THROMBOCYTOPENIA, UNSPECIFIED (3) Rectal bleeding Code(s): K62.5 - HEMORRHAGE OF ANUS AND RECTUM (4) Dehydration Code(s): E86.0 - DEHYDRATION
--- NOTE | 2018-01-01 11:14 | PN ---
Physical Exam: SUBJECTIVE: Patient seen and examined,f eels better, eating better, no weakness/ dizziness currently, improved strength today. No rectal bleeding or other concerns for bleeding. OBJECTIVE: Vital Signs Period Temp Pulse Resp BP Sys/Rao Pulse Ox Last 24 Hr 97.5 F-98.3 F 91-109 16-20 97-120/44-64 94 GENERAL: sitting in bed, pale but no acute distress Chest; CTAB, no rales or wheezing Abdomen:soft, NT, ND extremities: non pitting pedal edema Laboratory Results - last 24 hr 12/31/17 01/01/18 01/01/18 12:10 05:30 05:30 WBC 6.1 4.2 RBC 3.18 L 2.89 L Hgb 10.4 L 9.5 L Hct 30.6 L 27.7 L MCV 96.3 H 95.8 MCH 32.8 32.7 MCHC 34.0 34.1 RDW 20.0 H 19.8 H Plt Count 31 L* 25 L* MPV 8.7 10.5 D Absolute Neuts (auto) 5.0 Neutrophils % 81.6 Lymphocytes % 5.6 L Monocytes % 12.0 H Eosinophils % 0.6 Basophils % 0.2 Nucleated RBC % 0 Sodium 139 Potassium 3.5 Chloride 106 Carbon Dioxide 25 Anion Gap 8 BUN 9 Creatinine 0.6 Creat Clearance w eGFR > 60 Random Glucose 80 Calcium 7.3 L Phosphorus 2.0 L Magnesium 2.0 Total Bilirubin 0.6 AST 18 ALT 20 Alkaline Phosphatase 65 Total Protein 4.7 L Albumin 2.2 L Active Medications Generic Name Dose Route Start Last Admin Trade Name Freq PRN Reason Stop Dose Admin Alprazolam 0.25 mg 12/30/17 10:50 12/31/17 22:20 Xanax - PO 0.25 mg Q8H PRN Administration ANXIETY Loperamide HCl 4 mg 12/29/17 19:33 12/31/17 06:03 Imodium - PO 4 mg Q6H PRN Administration DIARRHEA Megestrol Acetate 400 mg 12/30/17 14:30 01/01/18 09:30 Megace Oral Suspension - PO 400 mg DAILY JAKUB Administration Metoprolol Tartrate 25 mg 12/29/17 22:00 01/01/18 09:29 Lopressor - PO 25 mg BID JAKUB Administration Ondansetron HCl 4 mg 12/29/17 19:34 12/31/17 22:20 Zofran Odt - SL 4 mg Q6H PRN Administration NAUSEA AND/OR VOMITING ASSESSMENT/PLAN: 82yo F with PMH rectal ca s/p RTx/chemo, anxiety, presented to the ER with generalized weakness and diarrhea and found to be in Afib with RVR -Failure to thrive/diarrhea/hypokalemia/dehydration from chemoradiation/Anal squamous cell Ca -Afib with RVR, new onset, now rate controlled -thrombocytopenia, likely from chemotherapy -Anemia, multifactoria, from acute blood loss from Anal mass and chemotherapy -Malnutrition -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 Oncology input noted. Loperamide prn. Cardiology input noted, metoprolol. Risk of AC outweigh benefits currently, discussed in detail with patient. s/p 1 units of PRBC and platelets. Monitor CBC. Watch for bleeding. Transfuse for platelets < 20 replete K prn. DVTPPX SCDs PT eval, Dispo pending clinical improvement and dispositon arrangements, likely in 24 hours if no concerns. Plan discussed with patient in detail, all questions answered. Discussed with nursing. Visit type - Emergency Visit Emergency Visit: Yes ED Registration Date: 12/29/17 Care time: The patient presented to the Emergency Department on the above date and was hospitalized for further evaluation of their emergent condition. - New Patient This patient is new to me today: No - Critical Care Critical Care patient: No - Discharge Referral Referred to [facility] Med P.C.: No
[2018-01-01] MEDS: NAPH,MB-DB/K PH,MBDB POWDER PACKET PO SCH ×2 (12:34→22:05)
[2018-01-01] MEDS: LOPERAMIDE HCL 2 MG CAPSULE PO PRN (22:05)
[2018-01-01] MEDS: ALPRAZolam 0.25 MG TABLET PO PRN (22:05)
[2018-01-02 06:34] LABS: BASO % 0.3 % (0-2.0); EOS % 0.9 % (0-4.5); HEMATOCRIT 25.1 % (32.4-45.2); HEMOGLOBIN 8.7 GM/dL (10.7-15.3); LYMPH % 15.6 % (8-40); MCH 33.1 pg (25.7-33.7); MCHC 34.6 g/dl (32.0-36.0); MEAN CELL VOLUME 95.7 fl (80-96); MEAN PLT VOLUME 9.1 fl (7.5-11.1); MONO % 14.8 % (3.8-10.2); NEUT % 68.4 % (42.8-82.8); RBC 2.62 M/mm3 (3.60-5.2); RDW 19.7 % (11.6-15.6); WHITE BLOOD COUNT 3.3 K/mm3 (4.0-10.0)
[2018-01-02 06:46] LABS: PLATELET COUNT 18 K/MM3 (134-434)
[2018-01-02 06:51] LABS: ALBUMIN 2.1 g/dl (3.4-5.0); ANION GAP 8 (8-16); BLOOD UREA NITROGEN 11 mg/dL (7-18); CALCIUM 7.4 mg/dL (8.5-10.1); CHLORIDE 107 mmol/L (98-107); CO2 25 mmol/L (21-32); GLUCOSE,RANDOM 84 mg/dL (74-106); MAGNESIUM 1.8 mg/dL (1.8-2.4); POTASSIUM 3.7 mmol/L (3.5-5.1); SGOT/AST 15 U/L (15-37); SGPT/ALT 16 U/L (12-78); SODIUM 140 mmol/L (136-145)
[2018-01-02 06:52] LABS: ALK PHOS 60 U/L (45-117); BILIRUBIN,TOTAL 0.6 mg/dL (0.2-1.0); CREATININE 0.6 mg/dL (0.55-1.02); TOT PROT 4.7 g/dl (6.4-8.2)
[2018-01-02] MEDS ORDERED: MAGNESIUM 1GM/D5W 100ML - 100 ML IVPB IVPB ONE (08:32)
--- NOTE | 2018-01-02 08:34 | PN ---
Teaching Attending Note Name of Resident: Bala Bello ATTENDING PHYSICIAN STATEMENT I saw and evaluated the patient. I reviewed the resident's note and discussed the case with the resident. I agree with the resident's findings and plan as documented with exceptions below. SUBJECTIVE: patient seen and examined, feels better, improved PO intake, no bleed concerns OBJECTIVE: Vital Signs Period Temp Pulse Resp BP Sys/Rao Pulse Ox Last 24 Hr 97.7 F-98.1 F 74-109 17-18 105-115/47-67 96-97 Intake & Output 12/30/17 12/31/17 01/01/18 01/02/18 23:59 23:59 23:59 23:59 Intake Total 2271 1020 570 10 Balance 2271 1020 570 10 Weight 157 lb 9.6 oz 158 lb 8 oz 155 lb 3.2 oz 156 lb General: sitting in bed in no acute distress, positive pallor Abdomen:soft, NT, ND Home Medications Medication Instructions Recorded Alprazolam [Xanax] 0.25 mg PO BID 10/18/17 Tramadol HCl 50 mg PO QID PRN 11/27/17 Lidocaine [Lc-4] 50 g TP DAILY 12/31/17 Lisinopril/Hydrochlorothiazide 0.5 mg PO DAILY 12/31/17 [Lisinopril-Hctz 10-12.5 mg Tab] Nystatin Oral Suspension - 5 ml Q6H 12/31/17 [Nystatin Oral Susp 941689 Units/5 ML -] Ondansetron [Zofran *Odt*] 8 mg PO Q8H PRN 12/31/17 Silver Sulfadiazine 1% Top Cr 1 tube TP QID 12/31/17 [Silvadene -] Sucralfate [Carafate] 10 ml PO BID 12/31/17 Active Medications Alprazolam (Xanax -) 0.25 mg PO Q8H PRN PRN Reason: ANXIETY Last Admin: 01/01/18 22:05 Dose: 0.25 mg Loperamide HCl (Imodium -) 4 mg PO Q6H PRN PRN Reason: DIARRHEA Last Admin: 01/01/18 22:05 Dose: 4 mg Magnesium Sulfate (Magnesium Sulfate) 1 gm IVPB ONCE ONE Stop: 01/02/18 08:33 Megestrol Acetate (Megace Oral Suspension -) 400 mg PO DAILY JAKUB Last Admin: 01/01/18 09:30 Dose: 400 mg Metoprolol Tartrate (Lopressor -) 25 mg PO BID [facility] Last Admin: 01/01/18 22:06 Dose: 25 mg Ondansetron HCl (Zofran Odt -) 4 mg SL Q6H PRN PRN Reason: NAUSEA AND/OR VOMITING Last Admin: 12/31/17 22:20 Dose: 4 mg Potassium Phos/Sodium Phos (Phos-Nak Packet -) 2 packet PO BID [facility] Stop: 01/02/18 22:01 Last Admin: 01/01/18 22:05 Dose: 2 packet Laboratory Results - last 24 hr 01/02/18 01/02/18 05:30 05:30 WBC 3.3 L RBC 2.62 L Hgb 8.7 L Hct 25.1 L MCV 95.7 MCH 33.1 MCHC 34.6 RDW 19.7 H Plt Count 18 L* D MPV 9.1 D Absolute Neuts (auto) 2.3 Neutrophils % 68.4 Lymphocytes % 15.6 D Monocytes % 14.8 H Eosinophils % 0.9 Basophils % 0.3 Nucleated RBC % 0 Sodium 140 Potassium 3.7 Chloride 107 Carbon Dioxide 25 Anion Gap 8 BUN 11 Creatinine 0.6 Creat Clearance w eGFR > 60 Random Glucose 84 Calcium 7.4 L Magnesium 1.8 Total Bilirubin 0.6 AST 15 ALT 16 Alkaline Phosphatase 60 Total Protein 4.7 L Albumin 2.1 L ASSESSMENT AND PLAN: 82yo F with PMH rectal ca s/p RTx/chemo, anxiety, presented to the ER with generalized weakness and diarrhea and found to be in Afib with RVR -Failure to thrive/diarrhea/hypokalemia/dehydration from chemoradiation/Anal squamous cell Ca -Afib with RVR, new onset, now rate controlled -thrombocytopenia, likely from chemotherapy -Anemia, multifactoria, from acute blood loss from Anal mass and chemotherapy -Malnutrition -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 Oncology input appreciated. Nutrition input noted,encourage oral intake, megace, dietary supplements. Oncology input noted. Loperamide prn, patient encouraged, will change to standing q6h. Cardiology input noted, metoprolol. Risk of AC outweigh benefits currently, discussed in detail with patient. Neutrophos x 4 doses. Mg 1 g IV x 1 today DVTPPX SCDs PT eval, Dispo pending clinical improvement and dispositon arrangements, likely in 24 hours if no concerns. Plan discussed with patient in detail, all questions answered.
[2018-01-02] MEDS: NAPH,MB-DB/K PH,MBDB POWDER PACKET PO SCH ×2 (10:16→22:23)
[2018-01-02] MEDS: MEGESTROL ACETATE 400 MG/10 ML UNIT DOSE CUP PO SCH (10:16)
[2018-01-02] MEDS: METOPROLOL TARTRATE 25 MG TABLET (FP) PO SCH ×2 (10:16→22:23)
[2018-01-02 11:12] LABS: ANISOCYTOSIS 1+
[2018-01-02 11:13] LABS: MACROCYTOSIS 1+
[2018-01-02 11:14] LABS: OVALOCYTE 1+
[2018-01-02 11:15] LABS: PLATELET ESTIMATE DECREASED
[2018-01-02] MEDS: LOPERAMIDE HCL 2 MG CAPSULE PO PRN (11:18)
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
[2018-01-02] MEDS: LOPERAMIDE HCL 2 MG CAPSULE PO SCH ×3 (14:25→23:36)
[2018-01-02] MEDS ORDERED: PT OWN MED DRAWER 7, Y5N ONE (14:38)
[2018-01-02 21:32] LABS: BASO % 0.4 % (0-2.0); EOS % 0.6 % (0-4.5); HEMATOCRIT 27.6 % (32.4-45.2); HEMOGLOBIN 9.2 GM/dL (10.7-15.3); MCH 32.2 pg (25.7-33.7); MCHC 33.4 g/dl (32.0-36.0); MEAN CELL VOLUME 96.2 fl (80-96); PLATELET COUNT 39 K/MM3 (134-434); RBC 2.87 M/mm3 (3.60-5.2); WHITE BLOOD COUNT 3.7 K/mm3 (4.0-10.0)
[2018-01-02] MEDS ORDERED: ALPRAZolam 0.25 MG TABLET PO ONE (23:00)
--- NOTE | 2018-01-02 23:23 | PN ---
Progress Note (short form) - Note Progress Note: PAtient seen and examined Denies any complaints Last Vital Signs Temp Pulse Resp BP Pulse Ox 98.2 F 84 18 102/50 98 01/02/18 20:15 01/02/18 20:15 01/02/18 20:15 01/02/18 20:15 01/02/18 21:00 Cor: RSR, No murmurs, No gallops Lungs: Clear to P&A Abd: Soft, Normal bowel sounds, No organomegaly Ext:No significant edema Abnormal Lab Results 12/29/17 01/02/18 01/02/18 21:15 05:30 21:00 WBC 3.7 L RBC 2.87 L Hgb 9.2 L Hct 27.6 L MCV 96.2 H RDW 20.0 H Plt Count 39 L D Monocytes % Monocytes % (Manual) 14 H Crossmatch See Detail 01/03/18 05:30 WBC 2.8 L RBC 2.78 L Hgb 9.2 L Hct 26.7 L MCV RDW 19.1 H Plt Count 34 L* Monocytes % 11.7 H Monocytes % (Manual) Crossmatch Home Medication List Medication Instructions Recorded Confirmed Type Alprazolam [Xanax] 0.25 mg PO BID 10/18/17 12/29/17 History Tramadol HCl 50 mg PO QID PRN 11/27/17 12/29/17 History Lidocaine [Lc-4] 50 g TP DAILY 12/31/17 12/31/17 History Lisinopril/Hydrochlorothiazide 0.5 mg PO DAILY 12/31/17 12/31/17 History [Lisinopril-Hctz 10-12.5 mg Tab] Nystatin Oral Suspension - 5 ml Q6H 12/31/17 12/31/17 History [Nystatin Oral Susp 428077 Units/5 ML -] Ondansetron [Zofran *Odt*] 8 mg PO Q8H PRN 12/31/17 12/29/17 History Silver Sulfadiazine 1% Top Cr 1 tube TP QID 12/31/17 12/31/17 History [Silvadene -] Sucralfate [Carafate] 10 ml PO BID 12/31/17 12/31/17 History Active Medications Generic Name Dose Route Start Last Admin Trade Name Freq PRN Reason Stop Dose Admin Loperamide HCl 4 mg 01/02/18 14:00 01/03/18 06:38 Imodium - PO Not Given Q6HPO [facility] Megestrol Acetate 400 mg 12/30/17 14:30 01/02/18 10:16 Megace Oral Suspension - PO 400 mg DAILY JAKUB Administration Metoprolol Tartrate 25 mg 12/29/17 22:00 01/02/18 22:23 Lopressor - PO 25 mg BID [facility] Administration Ondansetron HCl 4 mg 12/29/17 19:34 12/31/17 22:20 Zofran Odt - SL 4 mg Q6H PRN Administration NAUSEA AND/OR VOMITING A/P 82 y/o patient with Anal carcinoma s/p RT/Chemotherapy Anemia Thrombocytopenia GI toxicity form RT/chemotherapy A.F. Plan: Continued monitoring Transfuse platelets if < 20K [place] [id number]
[2018-01-03] MEDS: LOPERAMIDE HCL 2 MG CAPSULE PO SCH ×3 (06:38→18:30)
[2018-01-03 06:51] LABS: BASO % 0.4 % (0-2.0); EOS % 0.9 % (0-4.5); HEMATOCRIT 26.7 % (32.4-45.2); HEMOGLOBIN 9.2 GM/dL (10.7-15.3); LYMPH % 16.5 % (8-40); MCH 32.9 pg (25.7-33.7); MCHC 34.3 g/dl (32.0-36.0); MEAN PLT VOLUME 10.3 fl (7.5-11.1); MONO % 11.7 % (3.8-10.2); NEUT % 70.5 % (42.8-82.8); RBC 2.78 M/mm3 (3.60-5.2); RDW 19.1 % (11.6-15.6); WHITE BLOOD COUNT 2.8 K/mm3 (4.0-10.0)
[2018-01-03 07:19] LABS: ALBUMIN 2.4 g/dl (3.4-5.0); ANION GAP 8 (8-16); BLOOD UREA NITROGEN 7 mg/dL (7-18); CALCIUM 7.7 mg/dL (8.5-10.1); CHLORIDE 106 mmol/L (98-107); CO2 25 mmol/L (21-32); POTASSIUM 3.9 mmol/L (3.5-5.1); SODIUM 139 mmol/L (136-145)
[2018-01-03 07:23] LABS: ALK PHOS 62 U/L (45-117); BILIRUBIN,TOTAL 0.7 mg/dL (0.2-1.0); CREATININE 0.5 mg/dL (0.55-1.02); SGOT/AST 15 U/L (15-37); SGPT/ALT 16 U/L (12-78); TOT PROT 5.1 g/dl (6.4-8.2)
[2018-01-03 07:31] LABS: PLATELET COUNT 34 K/MM3 (134-434)
[2018-01-03 07:36] LABS: GLUCOSE,RANDOM 78 mg/dL (74-106)
[2018-01-03] MEDS ORDERED: PT OWN MED DRAWER 7, Y5N ONE (09:53)
[2018-01-03] MEDS: METOPROLOL TARTRATE 25 MG TABLET (FP) PO SCH ×2 (10:34→22:25)
[2018-01-03] MEDS: MEGESTROL ACETATE 400 MG/10 ML UNIT DOSE CUP PO SCH (10:34)
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
--- NOTE | 2018-01-03 15:48 | PN ---
Teaching Attending Note Name of Resident: Bala Bello ATTENDING PHYSICIAN STATEMENT I saw and evaluated the patient. I reviewed the resident's note and discussed the case with the resident. I agree with the resident's findings and plan as documented with exceptions below. SUBJECTIVE: Patient seen and examined. eating better, feeling better, no bleed or dizziness. Stools more formed today. OBJECTIVE: Vital Signs Period Temp Pulse Resp BP Sys/Rao Pulse Ox Last 24 Hr 97.4 F-98.4 F 76-87 18-20 102-120/50-74 97-98 Intake & Output 12/31/17 01/01/18 01/02/18 01/03/18 23:59 23:59 23:59 23:59 Intake Total 9560 310 0871 10 Balance 7498 482 2611 10 Weight 158 lb 8 oz 155 lb 3.2 oz 156 lb 154 lb 3.2 oz General: sitting in bed in no acute distress, walking with PT Abdomen:soft, NT, Nd Extremities: no edema Home Medications Medication Instructions Recorded Alprazolam [Xanax] 0.25 mg PO BID 10/18/17 Tramadol HCl 50 mg PO QID PRN 11/27/17 Lidocaine [Lc-4] 50 g TP DAILY 12/31/17 Lisinopril/Hydrochlorothiazide 0.5 mg PO DAILY 12/31/17 [Lisinopril-Hctz 10-12.5 mg Tab] Nystatin Oral Suspension - 5 ml Q6H 12/31/17 [Nystatin Oral Susp 904943 Units/5 ML -] Ondansetron [Zofran *Odt*] 8 mg PO Q8H PRN 12/31/17 Silver Sulfadiazine 1% Top Cr 1 tube TP QID 12/31/17 [Silvadene -] Sucralfate [Carafate] 10 ml PO BID 12/31/17 Active Medications Loperamide HCl (Imodium -) 4 mg PO Q6HPO [facility] Last Admin: 01/03/18 12:05 Dose: Not Given Megestrol Acetate (Megace Oral Suspension -) 400 mg PO DAILY [facility] Last Admin: 01/03/18 10:34 Dose: 400 mg Metoprolol Tartrate (Lopressor -) 25 mg PO BID [facility] Last Admin: 01/03/18 10:34 Dose: 25 mg Ondansetron HCl (Zofran Odt -) 4 mg SL Q6H PRN PRN Reason: NAUSEA AND/OR VOMITING Last Admin: 12/31/17 22:20 Dose: 4 mg Laboratory Results - last 24 hr 01/02/18 01/03/18 01/03/18 21:00 05:30 05:30 WBC 3.7 L 2.8 L RBC 2.87 L 2.78 L Hgb 9.2 L 9.2 L Hct 27.6 L 26.7 L MCV 96.2 H 96.0 MCH 32.2 32.9 MCHC 33.4 34.3 RDW 20.0 H 19.1 H Plt Count 39 L D 34 L* MPV 10.0 10.3 Absolute Neuts (auto) 2.8 2.0 Neutrophils % 76.0 70.5 Lymphocytes % 13.0 16.5 D Monocytes % 10.0 11.7 H Eosinophils % 0.6 0.9 Basophils % 0.4 0.4 Nucleated RBC % 0 0 Sodium 139 Potassium 3.9 Chloride 106 Carbon Dioxide 25 Anion Gap 8 BUN 7 Creatinine 0.5 L Creat Clearance w eGFR > 60 Random Glucose 78 Calcium 7.7 L Phosphorus 3.0 Magnesium 2.0 Total Bilirubin 0.7 AST 15 ALT 16 Alkaline Phosphatase 62 Total Protein 5.1 L Albumin 2.4 L ASSESSMENT AND PLAN: 82yo F with PMH rectal ca s/p RTx/chemo, anxiety, presented to the ER with generalized weakness and diarrhea and found to be in Afib with RVR -Failure to thrive/diarrhea/hypokalemia/dehydration from chemoradiation/Anal squamous cell Ca -Afib with RVR, new onset, now rate controlled -thrombocytopenia, likely from chemotherapy -Anemia, multifactoria, from acute blood loss from Anal mass and chemotherapy -Malnutrition -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 PO intake better, more formed stools now, no dizziness. Walking with PT, input noted. Cardiology input noted, metoprolol. Risk of AC outweigh benefits currently, discussed in detail with patient. replete K/Phos/Mg prn. improved levels. DVTPPX SCDs patient eager to leave. overall improved and walking with PT, CBC with some downtrend on WBC and Platelets, however no concerns for fevers or bleed. Discuss with hematology if ok to dc with CBC monitoring on Saturday. Dispo planning pending hematology input as above. Plan discussed with patient in detail, all questions answered.
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
--- NOTE | 2018-01-03 23:42 | CONSULT ---
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 Medications - Allergies Allergies/Adverse Reactions: Allergies Allergy/AdvReac Type Severity Reaction Status Date / Time Sulfa (Sulfonamide Allergy Verified 11/26/17 11:06 Antibiotics) - Home Medications Home Medications: Ambulatory Orders Alprazolam [Xanax] 0.25 mg PO BID 10/18/17 Nystatin Oral Suspension - [Nystatin Oral Susp 840353 Units/5 ML -] 5 ml Q6H 09/15 Ondansetron [Zofran *Odt*] 8 mg PO Q8H PRN 12/31/17 Silver Sulfadiazine 1% Top Cr [Silvadene -] 1 tube TP QID 12/31/17 Sucralfate [Carafate] 10 ml PO BID 12/31/17 Loperamide HCl [Imodium -] 4 mg PO Q6H PRN capsule 01/03/18 Loperamide HCl [Imodium -] 4 mg PO Q6HPO capsule 01/03/18 Metoprolol Tartrate [Lopressor -] 25 mg PO BID #60 tablet 01/03/18 Family Disease History - Family Disease History Family Disease History: CA: Father (leukemia), Sister (breast cancer), Other: Mother (alzheimer) Physical Exam Vital Signs: Vital Signs Temperature 97.4 F L 01/03/18 17:00 Pulse Rate 73 01/03/18 17:00 Respiratory Rate 18 01/03/18 17:00 Blood Pressure 122/66 01/03/18 17:00 O2 Sat by Pulse Oximetry (%) 97 01/03/18 09:00 Labs: CBC, BMP 01/03/18 05:30 01/03/18 05:30
--- NOTE | 2018-01-03 23:43 | PN ---
Progress Note (short form) - Note Progress Note: PAtient seen and examined Weak,fatigued 1 episode of diarrhea--now c/o constipation AFVSS Cor: RSR, No murmurs, No gallops Lungs: Clear to P&A Abd: Soft, Normal bowel sounds, No organomegaly Ext:No significant edema Abnormal Lab Results 01/03/18 01/03/18 05:30 05:30 WBC 2.8 L RBC 2.78 L Hgb 9.2 L Hct 26.7 L RDW 19.1 H Plt Count 34 L* Monocytes % 11.7 H Creatinine 0.5 L Calcium 7.7 L Total Protein 5.1 L Albumin 2.4 L Active Medications Generic Name Dose Route Start Last Admin Trade Name Freq PRN Reason Stop Dose Admin Loperamide HCl 4 mg 01/02/18 14:00 01/04/18 06:35 Imodium - PO Not Given Q6HPO [facility] Megestrol Acetate 400 mg 12/30/17 14:30 01/03/18 10:34 Megace Oral Suspension - PO 400 mg DAILY [facility] Administration Metoprolol Tartrate 25 mg 12/29/17 22:00 01/03/18 22:25 Lopressor - PO 25 mg BID [facility] Administration Ondansetron HCl 4 mg 12/29/17 19:34 12/31/17 22:20 Zofran Odt - SL 4 mg Q6H PRN Administration NAUSEA AND/OR VOMITING A/P 82 y/o patient with Anal carcinoma s/p RT/Chemotherapy Anemia Thrombocytopenia GI toxicity form RT/chemotherapy A.F. Monitoring CBC Transfusionof PRBCS/Platelets as necessary Monitoring diarrhea-- hydration as needed will discuss with primary team--- ? subacute rehab vs home with services
[2018-01-04] MEDS: LOPERAMIDE HCL 2 MG CAPSULE PO SCH ×4 (01:18→18:56)
[2018-01-04 08:07] LABS: BASO % 0.7 % (0-2.0); EOS % 0.6 % (0-4.5); LYMPH % 16.7 % (8-40); MCH 33.2 pg (25.7-33.7); MCHC 34.6 g/dl (32.0-36.0); MEAN CELL VOLUME 95.9 fl (80-96); MEAN PLT VOLUME 9.9 fl (7.5-11.1); MONO % 12.7 % (3.8-10.2); NEUT % 69.3 % (42.8-82.8); RBC 3.02 M/mm3 (3.60-5.2); RDW 19.8 % (11.6-15.6); WHITE BLOOD COUNT 2.7 K/mm3 (4.0-10.0)
[2018-01-04 08:19] LABS: PLATELET COUNT 36 K/MM3 (134-434)
[2018-01-04 08:23] LABS: ALBUMIN 2.5 g/dl (3.4-5.0); ANION GAP 9 (8-16); BLOOD UREA NITROGEN 7 mg/dL (7-18); CALCIUM 7.9 mg/dL (8.5-10.1); CHLORIDE 107 mmol/L (98-107); CO2 24 mmol/L (21-32); GLUCOSE,RANDOM 80 mg/dL (74-106); MAGNESIUM 1.8 mg/dL (1.8-2.4); PHOSPHOROUS 2.6 mg/dL (2.5-4.9); POTASSIUM 3.8 mmol/L (3.5-5.1); SGOT/AST 20 U/L (15-37); SODIUM 140 mmol/L (136-145)
[2018-01-04 08:25] LABS: ALK PHOS 64 U/L (45-117); BILIRUBIN,TOTAL 0.7 mg/dL (0.2-1.0); CREATININE 0.6 mg/dL (0.55-1.02); SGPT/ALT 17 U/L (12-78); TOT PROT 5.3 g/dl (6.4-8.2)
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
[2018-01-04] MEDS: METOPROLOL TARTRATE 25 MG TABLET (FP) PO SCH ×2 (10:09→22:12)
[2018-01-04] MEDS: MEGESTROL ACETATE 400 MG/10 ML UNIT DOSE CUP PO SCH (10:09)
[2018-01-04] MEDS: ALPRAZolam 0.25 MG TABLET PO PRN ×2 (10:09→22:12)
--- NOTE | 2018-01-04 14:04 | PN ---
Physical Exam: SUBJECTIVE: Patient seen and examined, feels better, no diarrhea, eating well. No bleed concerns. OBJECTIVE: Vital Signs Period Temp Pulse Resp BP Sys/Rao Pulse Ox Last 24 Hr 97.4 F-98.2 F 73-92 14-20 108-153/53-85 95 GENERAL: lying in bed in no acute distress Chest: CTAB, no rales or wheezing Abdomen:Soft, NT, ND Extremities; no edema Laboratory Results - last 24 hr 01/04/18 01/04/18 05:30 05:30 WBC 2.7 L RBC 3.02 L Hgb 10.0 L Hct 29.0 L MCV 95.9 MCH 33.2 MCHC 34.6 RDW 19.8 H Plt Count 36 L* MPV 9.9 Absolute Neuts (auto) 1.9 Neutrophils % 69.3 Lymphocytes % 16.7 Monocytes % 12.7 H Eosinophils % 0.6 Basophils % 0.7 Nucleated RBC % 0 Sodium 140 Potassium 3.8 Chloride 107 Carbon Dioxide 24 Anion Gap 9 BUN 7 Creatinine 0.6 Creat Clearance w eGFR > 60 Random Glucose 80 Calcium 7.9 L Phosphorus 2.6 Magnesium 1.8 Total Bilirubin 0.7 AST 20 ALT 17 Alkaline Phosphatase 64 Total Protein 5.3 L Albumin 2.5 L Active Medications Generic Name Dose Route Start Last Admin Trade Name Freq PRN Reason Stop Dose Admin Alprazolam 0.25 mg 01/04/18 09:25 01/04/18 10:09 Xanax - PO 0.25 mg BID PRN Administration ANXIETY Loperamide HCl 4 mg 01/02/18 14:00 01/04/18 12:26 Imodium - PO Not Given Q6HPO [facility] Megestrol Acetate 400 mg 12/30/17 14:30 01/04/18 10:09 Megace Oral Suspension - PO 400 mg DAILY [facility] Administration Metoprolol Tartrate 25 mg 12/29/17 22:00 01/04/18 10:09 Lopressor - PO 25 mg BID [facility] Administration Ondansetron HCl 4 mg 12/29/17 19:34 12/31/17 22:20 Zofran Odt - SL 4 mg Q6H PRN Administration NAUSEA AND/OR VOMITING ASSESSMENT/PLAN: 82yo F with PMH rectal ca s/p RTx/chemo, anxiety, presented to the ER with generalized weakness and diarrhea and found to be in Afib with RVR -Failure to thrive/diarrhea/hypokalemia/dehydration from chemoradiation/Anal squamous cell Ca -Afib with RVR, new onset, now rate controlled -thrombocytopenia, likely from chemotherapy -Anemia, multifactoria, from acute blood loss from Anal mass and chemotherapy -Malnutrition -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 PO intake better, more formed stools now, no dizziness. Walking with PT, input noted. Cardiology input noted, metoprolol. Risk of AC outweigh benefits currently, discussed in detail with patient. replete K/Phos/Mg prn. improved levels. DVTPPX SCDs patient lives alone,family visits, refuses SNF. Aim for improved anemia/thrombocytopenia for d/c if patient insistent on going home alone. Dispo planning pending hematology input as above. Plan discussed with patient in detail, all questions answered. Visit type - Emergency Visit Emergency Visit: Yes ED Registration Date: 12/29/17 Care time: The patient presented to the Emergency Department on the above date and was hospitalized for further evaluation of their emergent condition. - New Patient This patient is new to me today: No - Critical Care Critical Care patient: No - Discharge Referral Referred to [facility] Med [facility] No
--- NOTE | 2018-01-04 14:46 | PN ---
Progress Note (short form) - Note Progress Note: Patient not by bedside but no overnight complaints Vital Signs Period Temp Pulse Resp BP Sys/Rao Pulse Ox Last 24 Hr 97.4 F-98.2 F 73-92 14-20 114-153/54-85 95-95 CBC, BMP 01/04/18 05:30 01/04/18 05:30 Active Medications Generic Name Dose Route Start Last Admin Trade Name Freq PRN Reason Stop Dose Admin Loperamide HCl 4 mg 01/02/18 14:00 01/04/18 06:35 Imodium - PO Not Given Q6HPO [facility] Megestrol Acetate 400 mg 12/30/17 14:30 01/03/18 10:34 Megace Oral Suspension - PO 400 mg DAILY [facility] Administration Metoprolol Tartrate 25 mg 12/29/17 22:00 01/03/18 22:25 Lopressor - PO 25 mg BID [facility] Administration Ondansetron HCl 4 mg 12/29/17 19:34 12/31/17 22:20 Zofran Odt - SL 4 mg Q6H PRN Administration NAUSEA AND/OR VOMITING A/P 82 y/o patient with Anal carcinoma s/p RT/Chemotherapy Anemia Thrombocytopenia GI toxicity form RT/chemotherapy A.F. Monitoring CBC No transfusions for today ? subacute rehab vs home with services
[2018-01-05] MEDS: LOPERAMIDE HCL 2 MG CAPSULE PO SCH ×3 (00:02→12:21)
[2018-01-05 07:39] LABS: BASO % 0.4 % (0-2.0); EOS % 0.4 % (0-4.5); HEMATOCRIT 28.4 % (32.4-45.2); HEMOGLOBIN 9.8 GM/dL (10.7-15.3); MCHC 34.5 g/dl (32.0-36.0); MEAN CELL VOLUME 95.9 fl (80-96); MONO % 19.2 % (3.8-10.2); PLATELET COUNT 49 K/MM3 (134-434); RBC 2.96 M/mm3 (3.60-5.2); RDW 19.7 % (11.6-15.6); WHITE BLOOD COUNT 2.4 K/mm3 (4.0-10.0)
[2018-01-05 08:20] LABS: CHLORIDE 107 mmol/L (98-107); SODIUM 140 mmol/L (136-145)
[2018-01-05 08:24] LABS: ANION GAP 7 (8-16); BLOOD UREA NITROGEN 12 mg/dL (7-18); CALCIUM 8.1 mg/dL (8.5-10.1); CO2 26 mmol/L (21-32); CREATININE 0.7 mg/dL (0.55-1.02); GLUCOSE,RANDOM 90 mg/dL (74-106); MAGNESIUM 1.7 mg/dL (1.8-2.4); PHOSPHOROUS 2.5 mg/dL (2.5-4.9)
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
[2018-01-05 09:03] VITALS: BP 100/52; PULSE 80; TEMP 98
[2018-01-05] MEDS ORDERED: MAGNESIUM SULF 50% (8.12 MEQ/2 ML-1 GM VIAL) IVPB ONE (09:38)
[2018-01-05] MEDS: METOPROLOL TARTRATE 25 MG TABLET (FP) PO SCH (11:15)
--- NOTE | 2018-01-05 11:28 | DS ---
Physical Exam: SUBJECTIVE: Patient seen and examined, no diarrhea, eating well, ambulating well , eager to go home. OBJECTIVE: Vital Signs Period Temp Pulse Resp BP Sys/Rao Pulse Ox Last 24 Hr 98 F-98.2 F 79-97 14-18 100-130/47-55 97-98 PHYSICAL EXAM GENERAL:lying in bed in no acute distress Chest: CTAB, no rales or wheezing Abdomen:soft, NT, ND, positive bowel sounds Extremities: no edema LABS Laboratory Results - last 24 hr 01/05/18 01/05/18 06:40 06:40 WBC 2.4 L RBC 2.96 L Hgb 9.8 L Hct 28.4 L MCV 95.9 MCH 33.0 MCHC 34.5 RDW 19.7 H Plt Count 49 L D MPV 11.0 D Absolute Neuts (auto) 1.4 Neutrophils % 56.0 Lymphocytes % 24.0 D Monocytes % 19.2 H Eosinophils % 0.4 Basophils % 0.4 Nucleated RBC % 0 Sodium 140 Potassium 4.0 Chloride 107 Carbon Dioxide 26 Anion Gap 7 L BUN 12 Creatinine 0.7 Creat Clearance w eGFR > 60 Random Glucose 90 Calcium 8.1 L Phosphorus 2.5 Magnesium 1.7 L HOSPITAL COURSE: Date of Admission:12/29/17 Date of Discharge: 01/05/18 Minutes to complete discharge: 45 Discharge Summary Reason For Visit: ATRIAL FIBRILATION,DIARRHEA,THROMBOCYTOPENIA Current Active Problems Anxiety and depression (Acute) Atrial fibrillation (Acute) Diarrhea (Acute) Hypokalemia (Acute) Thrombocytopenia (Acute) Hospital Course: Patient was found in new onset atrial fibrillation. She was seen by cardiology. Started on metoprolol with controlled rate. She had 2D echo showing EF 60-65%, Pulmonary artery pressures 46 mm hg, dilated left atrium, mild aortic sclerosis. Given her rectal bleed, ongoing thrombocytopenia and chemotherapy, her bleeding risk outweighed benefits from full dose anti-coagulation . For her acute blood loss anemia from rectal bleed, she received 1 unit PRBC. Her hemoglobin was stable rest of her stay with no further bleed events. She continued to have leucopenia/thrombocytopenia with 2 units of platelets. Her platelet counts on discharge are 49 with no evidence of bleeding. She exhibited no fevers or concerns for an infectious process. 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 She was seen by nutrition and started on megace and nutritional supplements. She had hypokalemia/hypophosphatemia and hypomagnesemia which were aggressively repleted. She was evaluated by physical therapy and cleared for home discharge with VNS and PT. Patient and daughter were in agreement with the plan and sister was to stay with patient on discharge as discussed. Need for close follow up with oncology was stressed with the patient. Condition: Good - Instructions Diet, Activity, Other Instructions: The following new medications have been added : Metoprolol 25 mg twice daily Megace daily Magnesium 400 mg daily for 1 week Loperamide as needed. If you notice any fevers or foul smelling or bloody diarrhea, do not take any loperamide but come to ED immediately. No driving till next doctor visit. Activities with supervision. Be careful to avoid bumping or having cuts or bruises and seek care immediately if any bleeding noted. Advise supervision with activities till your blood counts have improved. Follow up with Dr. Bentley in 1-2 days Follow with your primary care provider within a week Follow up with manager heavy duty in 1-2 weeks (You will need to discuss blood thinners for your new diagnosis of atrial fibrillation once your blood counts have improved based on bleeding risk) CBC WITH DR. BENTLEY IN 2-3 DAYS. PLEASE ENSURE TO CALL HIS OFFICE TOMORROW TO HAVE A FOLLOW UP BLOOD WORK ON SATURDAY OR SATURDAY If you think your symptoms are not getting better, or you have excessive bleeding from gums, in urine or stool or feel too or are unable to eat or drink with diarrhea for prolonged periods, or any fevers more than 100.4 or any new concerns, call 911 or return to the emergency room . Referrals: Jesus Manuel Johnston MD [Staff Physician] - Wilberto Bentley MD [Primary Care Provider] - 1 Week Disposition: VNS/HOME HEALTH CARE - Home Medications Comprehensive Discharge Medication List: Ambulatory Orders Alprazolam [Xanax] 0.25 mg PO BID 10/18/17 Nystatin Oral Suspension - [Nystatin Oral Susp 167244 Units/5 ML -] 5 ml Q6H 09/15 Ondansetron [Zofran *Odt*] 8 mg PO Q8H PRN 12/31/17 Silver Sulfadiazine 1% Top Cr [Silvadene -] 1 tube TP QID 12/31/17 Sucralfate [Carafate] 10 ml PO BID 12/31/17 Metoprolol Tartrate [Lopressor -] 25 mg PO BID #60 tablet 01/03/18 Loperamide HCl [Loperamide] 2 mg PO Q6H PRN #10 tablet 01/05/18 Magnesium Oxide [Mgo] 400 mg PO DAILY 7 Days #7 tablet 01/05/18 Megestrol Acetate Oral Susp [Megace Oral Suspension -] 400 mg PO DAILY 30 Days # 1 cup 01/05/18 This patient is new to me today: No Emergency Visit: Yes ED Registration Date: 12/29/17 Care time: The patient presented to the Emergency Department on the above date and was hospitalized for further evaluation of their emergent condition. Critical Care patient: No - Discharge Referral Referred to [facility] No
[2018-01-05 11:38] LABS: ANISOCYTOSIS 1+; PLATELET ESTIMATE DECREASED
--- NOTE | 2018-01-05 12:36 | PN ---
Progress Note (short form) - Note Progress Note: patient is fine and wants to go home Vital Signs Period Temp Pulse Resp BP Sys/Rao Pulse Ox Last 24 Hr 98 F-98.2 F 79-97 -18 100-130/47-55 97-98 CBC, BMP 01/05/18 06:40 01/05/18 06:40 Current Medications Generic Name Dose Route Start Last Admin Trade Name Freq PRN Reason Stop Dose Admin Alprazolam 0.25 mg 01/04/18 09:25 01/04/18 22:12 Xanax - PO 0.25 mg BID PRN Administration ANXIETY Loperamide HCl 4 mg 01/02/18 14:00 01/05/18 12:21 Imodium - PO Not Given Q6HPO JAKUB Megestrol Acetate 400 mg 12/30/17 14:30 01/04/18 10:09 Megace Oral Suspension - PO 400 mg DAILY JAKUB Administration Metoprolol Tartrate 25 mg 12/29/17 22:00 01/05/18 11:15 Lopressor - PO 25 mg BID JAKUB Administration Ondansetron HCl 4 mg 12/29/17 19:34 12/31/17 22:20 Zofran Odt - SL 4 mg Q6H PRN Administration NAUSEA AND/OR VOMITING Tbo-Filgrastim 300 mcg 01/05/18 13:00 Granix - SQ 01/05/18 13:01 ONCE ONE A/P 82 y/o patient with Anal carcinoma s/p RT/Chemotherapy Anemia Thrombocytopenia Neutropenia - from chemo s/p 1 dose of filgastrim today she will f/v in Dr. Recinos clinic on Saturday
[2018-01-05] MEDS ORDERED: PT OWN MED DRAWER 7, Y5N ONE (12:57)
[2018-01-05] MEDS: MEGESTROL ACETATE 400 MG/10 ML UNIT DOSE CUP PO SCH (12:59)
[2018-01-05] MEDS ORDERED: TBO-FILGRASTIM 300 MCG/0.5 ML DISP.SYRINGE SQ ONE (13:00)
== END 2018-01-05 14:35 | disposition home health service (06) | DRG 813 ==
LOC: SUPCPDRO 14:15 → JER 14:15 → JERBED 17:43 → J4W 21:47
PROVIDERS: ADMIT Internal Medicine; ATTEND Hospitalist
PROC: 30233R1 Transfusion of Nonautologous Platelets into Peripheral Vein, Percutaneous Approach (ICD-10-PCS; principal; 2017-12-29)
PROC: 30233N1 Transfusion of Nonautologous Red Blood Cells into Peripheral Vein, Percutaneous Approach (ICD-10-PCS; 2017-12-30)
DX: D69.6 Thrombocytopenia, unspecified (principal); C21.0 Malignant neoplasm of anus, unspecified; E46 Unspecified protein-calorie malnutrition; D62 Acute posthemorrhagic anemia; R19.7 Diarrhea, unspecified; R53.1 Weakness; I48.91 Unspecified atrial fibrillation; D70.9 Neutropenia, unspecified; E87.6 Hypokalemia; E86.0 Dehydration; F41.8 Other specified anxiety disorders; Z68.25 Body mass index [BMI] 25.0-25.9, adult; E83.42 Hypomagnesemia; K59.00 Constipation, unspecified; E83.39 Other disorders of phosphorus metabolism; R62.7 Adult failure to thrive
CPT/HCPCS: 36415; 36430; 80048; 80053; 82550; 83735; 84100; 84439; 84443; 84484; 85025; 85027; 85610; 85730; 86850; 86900; 86901; 86922; 93005; 93010; 93306-TC; 93971-TC; 97116-GP; 97161-GP; 99284-25; J1447; J7030; P9034; P9038; P9058; Q0162

== ENCOUNTER 2018-02-13 11:51 | Day surgery (SDC) | payer OTHER, MEDICARE ==
[2018-02-13] MEDS ORDERED: ONDANSETRON 4 MG/2 ML VIAL IVPB ONE (12:45)
[2018-02-13] MEDS ORDERED: PANTOPRAZOLE SODIUM 40 MG in SODIUM CHLORIDE 100 ML IVPB ONE (12:45)
[2018-02-13] MEDS ORDERED: SUCRALFATE 1 GM/10 ML UNIT DOSE CUPS PO ONE (12:45)
[2018-02-13] MEDS ORDERED: POLYETHYLENE GLYCOL 3350 119 GM BTL PO ONE (12:45)
[2018-02-13] MEDS ORDERED: POTASSIUM CHLORIDE IVPB SCH (13:00)
[2018-02-13] MEDS ORDERED: NORMAL SALINE IVPB SCH (13:00)
[2018-02-13] MEDS ORDERED: DEXTROSE 5% IVPB SCH (13:00)
[2018-02-13] MEDS ORDERED: MAGNESIUM SULFATE IVPB SCH (13:00)
[2018-02-13 14:14] LABS: BASO % 0.4 % (0-2.0); EOS % 0.4 % (0-4.5); HEMATOCRIT 34.2 % (32.4-45.2); HEMOGLOBIN 11.8 GM/dL (10.7-15.3); LYMPH % 4.7 % (8-40); MCH 36.7 pg (25.7-33.7); MCHC 34.6 g/dl (32.0-36.0); MEAN CELL VOLUME 105.9 fl (80-96); MEAN PLT VOLUME 9.7 fl (7.5-11.1); MONO % 13.2 % (3.8-10.2); NEUT % 81.3 % (42.8-82.8); PLATELET COUNT 186 K/MM3 (134-434); RBC 3.23 M/mm3 (3.60-5.2); RDW 21.1 % (11.6-15.6); WHITE BLOOD COUNT 5.4 K/mm3 (4.0-10.0)
[2018-02-13 14:41] LABS: ALBUMIN 2.7 g/dl (3.4-5.0); ANION GAP 9 (8-16); BILIRUBIN,TOTAL 0.6 mg/dL (0.2-1.0); BLOOD UREA NITROGEN 14 mg/dL (7-18); CALCIUM 8.3 mg/dL (8.5-10.1); CHLORIDE 103 mmol/L (98-107); CO2 24 mmol/L (21-32); CREATININE 0.9 mg/dL (0.55-1.02); GLUCOSE,RANDOM 143 mg/dL (74-106); MAGNESIUM 1.7 mg/dL (1.8-2.4); SGOT/AST 21 U/L (15-37); SGPT/ALT 11 U/L (12-78); SODIUM 136 mmol/L (136-145); TOT PROT 6.4 g/dl (6.4-8.2)
[2018-02-13 15:06] LABS: ALK PHOS 53 U/L (45-117)
[2018-02-13 15:29] LABS: ANISOCYTOSIS 1+; MACROCYTOSIS 1+; PLATELET ESTIMATE ADEQUATE
--- NOTE | 2018-02-13 15:49 | EKG ---
Test Reason : Blood Pressure : / mmHG Vent. Rate : 085 BPM Atrial Rate : 085 BPM P-R Int : 190 ms QRS Dur : 070 ms QT Int : 376 ms P-R-T Axes : 090 019 022 degrees QTc Int : 447 ms SINUS RHYTHM WITH PREMATURE SUPRAVENTRICULAR COMPLEXES OTHERWISE NORMAL ECG WHEN COMPARED WITH ECG OF 29-DEC-2017 16:40, SINUS RHYTHM HAS REPLACED ATRIAL FIBRILLATION NON-SPECIFIC CHANGE IN ST SEGMENT IN INFERIOR LEADS ST ELEVATION NOW PRESENT IN ANTEROLATERAL LEADS Confirmed by SHAHRAM DC MD ([id number]) on 02/13/2018 3:48:55 PM Referred By: KWESI BENTLEY Confirmed By:SHAHRAM DC MD
[2018-02-13 17:10] VITALS: BP 110/60; PULSE 80; TEMP 97.6
[2018-02-13] MEDS ORDERED: PORTA CATH FLUSH 10 ML IVPUSH ONE (17:10)
[2018-02-15 06:06] LABS: SERUM IRON SATURATION 12 % (15-55); TOTAL IRON BINDING CAPACITY 181 ug/dL (250-450); UIBC 159 ug/dL (118-369)
== END 2018-02-13 16:30 | disposition home or self-care (01) ==
LOC: JONCNONCHE 11:51 → J7W 12:15 → JONCNONCHE 16:30
PROVIDERS: ATTEND Internal Medicine Hematology & Oncology
PROC: 3E043GC Introduction of Other Therapeutic Substance into Central Vein, Percutaneous Approach (ICD-10-PCS; principal; 2018-02-13)
PROC: 3E043GC Introduction of Other Therapeutic Substance into Central Vein, Percutaneous Approach (ICD-10-PCS; 2018-02-13)
DX: C21.0 Malignant neoplasm of anus, unspecified (principal)
CPT/HCPCS: 36415; 80053; 82607; 82728; 82746; 83540; 83550; 83735; 84439; 84443; 85025; 93005; 93010; 96360; 96361; 96365

== ENCOUNTER 2018-02-16 14:33 | Inpatient (IN) | payer OTHER, MEDICARE ==
--- NOTE | 2018-02-16 15:17 | PDOC ---
History of Present Illness - General Chief Complaint: Weakness Stated Complaint: DEHYDRATION Time Seen by Provider: 02/16/18 14:57 History Source: Patient Exam Limitations: No Limitations - History of Present Illness Initial Comments: CHIEF COMPLAINT: 82 y/o afebrile female, accompanied by her daughter, with PMH of anal CA (on Chemo/RX therapy), HTN, anxiety c/o weakness, vomiting and diarrhea. HISTORY OF PRESENT ILLNESS: The patient states these symptoms started last week. She was seen by Dr. Oneil on , 02/13, and was given IV fluids. He suggested she return on Saturday for more fluids but she did not want to return. She states she has gotten progressively worse, with weakness, nausea, vomiting, diarrhea and inability to hold anything down. She denies fever, chills, MALDONADO, CP, SOB, back pain, hematuria, vaginal bleeding, rectal bleeding. Allergies: Sulfonamide antibiotics. Social History: No reported alcohol, cigarette, or drug use. Surgical History: Back PCP: None Oncologist: Dr. Oneil Vital signs on arrival are notable for pulse of 100 and O2 sat of 90% on RA. REVIEW OF SYSTEMS: GENERAL/CONSTITUTIONAL: No fever/chills. + weakness. No weight change. HEAD, EYES, EARS, NOSE AND THROAT: No change in vision. No ear pain or discharge. No sore throat. CARDIOVASCULAR: No chest pain or shortness of breath. RESPIRATORY: No cough, wheezing, or hemoptysis. GASTROINTESTINAL: +nausea, vomiting, diarrhea. GENITOURINARY: No dysuria, frequency, or change in urination. MUSCULOSKELETAL: No joint or muscle swelling or pain. No neck or back pain. SKIN: No rash or easy bruising. NEUROLOGIC: No headache, vertigo, loss of consciousness, or loss of sensation. PHYSICAL EXAM: GENERAL: The patient is awake, alert, and fully oriented, in no acute distress. She appears cachectic HEAD: Normal with no signs of trauma. ENT: Pupils equal, round and reactive to light, extraocular movements intact, sclera anicteric, conjunctiva clear. Neck supple. Mouth dry. LUNGS: Clear to auscultation bilaterally. Normal excursion. No respiratory distress or use of accessory muscles. CV: RRR, S1/S2, no MRG. Cap refill < 2 sec. ABDOMEN: Soft, non-distended, non-tender even to deep palpation, no hepatomegaly or splenomegaly, no masses. Hyperactive bowel sounds x 4. EXTREMITIES: Normal range of motion, no edema. NEUROLOGICAL: Normal speech. Gait not assessed in the ER. CN II-XII grossly intact. SKIN: Warm, dry, +decreased turgor, no rashes or lesions noted. Past History - Past Medical History Allergies/Adverse Reactions: Allergies Allergy/AdvReac Type Severity Reaction Status Date / Time Sulfa (Sulfonamide Allergy Verified 02/16/18 15:53 Antibiotics) Home Medications: Ambulatory Orders Alprazolam [Xanax] 0.25 mg PO BID 10/18/17 Nystatin Oral Suspension - [Nystatin Oral Susp 847007 Units/5 ML -] 5 ml Q6H 09/15 Ondansetron [Zofran *Odt*] 8 mg PO Q8H PRN 12/31/17 Silver Sulfadiazine 1% Top Cr [Silvadene -] 1 tube TP QID 12/31/17 Sucralfate [Carafate] 10 ml PO BID 12/31/17 Metoprolol Tartrate [Lopressor -] 25 mg PO BID #60 tablet 01/03/18 Loperamide HCl [Loperamide] 2 mg PO Q6H PRN #10 tablet 01/05/18 Magnesium Oxide [Mgo] 400 mg PO DAILY 7 Days #7 tablet 01/05/18 Megestrol Acetate Oral Susp [Megace Oral Suspension -] 400 mg PO DAILY 30 Days # 1 cup 01/05/18 Unobtainable 02/16/18 Anemia: No Asthma: No Cancer: Yes (ANAL CA) Cardiac Disorders: No CVA: No COPD: No CHF: No DVT: No Dementia: No Diabetes: No GI Disorders: No Disorders: Yes (UTI) HTN: Yes Hypercholesterolemia: No Liver Disease: No Seizures: No Thyroid Disease: No - Surgical History Abdominal Surgery: Yes Appendectomy: No Cardiac Surgery: No Cholecystectomy: No Lung Surgery: No Neurologic Surgery: Yes (BACK SX) Orthopedic Surgery: Yes (RT Knee) - Immunization History Immunization Up to Date: Yes - Suicide/Smoking/Psychosocial Hx Smoking History: Never smoked Have you smoked in the past 12 months: No Information on smoking cessation initiated: No Hx Alcohol Use: No Drug/Substance Use Hx: No Substance Use Type: None Hx Substance Use Treatment: No *Physical Exam - Vital Signs Last Vital Signs Temp Pulse Resp BP Pulse Ox 97.8 F 100 H 16 144/70 90 L 02/16/18 14:33 02/16/18 14:33 02/16/18 14:33 02/16/18 14:33 02/16/18 14:33 ED Treatment Course - LABORATORY CBC & Chemistry Diagram: 02/16/18 15:40 02/16/18 15:40 Medical Decision Making - Medical Decision Making A/P: 82 y/o female, PMH anal CA on Chemo/RX therapy, with 4 days of worsening weakness, n/v/d. Plan is as follows: 1. Labs 2. IV fluids 3. IV zofran Patient's labs appear improved from 02/13/18. She states she feels slightly better but still "lousy". She does not feel well enough to go home. Attempted to call Dr. Oneil. No call back. Spoke to Hospitalist for obs admission. They suggest continuing fluids and after 6 hours in ER if still need admission to admit at that time. I am signing this patient out to my colleague: CORBIN Baldwin In brief, this patient is being seen in the ED for a chief complaint of: weakness, vomiting, dehydration I have completed the initial assessment interview note and have ordered: labs, CXR, UA I have reviewed the following results: labs, UA Pending results are: CXR Please call the PCP: Dr. Oneil Plan for disposition is as follows: Reassess at 8:30pm. If not improved obs admit. *DC/Admit/Observation/Transfer Diagnosis at time of Disposition: Dehydration, Weakness Vomiting Qualifiers: Vomiting type: unspecified Vomiting Intractability: intractable Nausea presence : with nausea Qualified Code(s): R11.2 - Nausea with vomiting, unspecified - Referrals Referrals: Wilberto Oneil MD [Primary Care Provider] - - Patient Instructions - Post Discharge Activity
[2018-02-16] MEDS ORDERED: SODIUM CHLORIDE 1,000 ML IV STA ×2 (15:18→18:34)
[2018-02-16] MEDS ORDERED: ONDANSETRON 4 MG/2 ML VIAL IVPUSH ONE (16:09)
[2018-02-16] MEDS ORDERED: ONDANSETRON 4 MG/2 ML VIAL ONE (16:13)
[2018-02-16 16:24] LABS: BASO % 0.4 % (0-2.0); EOS % 1.6 % (0-4.5); HEMATOCRIT 37.6 % (32.4-45.2); LYMPH % 5.5 % (8-40); MCH 36.7 pg (25.7-33.7); MCHC 34.7 g/dl (32.0-36.0); MEAN PLT VOLUME 9.7 fl (7.5-11.1); MONO % 12.2 % (3.8-10.2); NEUT % 80.3 % (42.8-82.8); PLATELET COUNT 197 K/MM3 (134-434); RBC 3.55 M/mm3 (3.60-5.2); RDW 20.1 % (11.6-15.6); WHITE BLOOD COUNT 5.2 K/mm3 (4.0-10.0)
[2018-02-16 16:49] LABS: URINE APPEARANCE CLEAR; URINE BILIRUBIN NEGATIVE (<2.0 mg/dL); URINE COLOR YELLOW; URINE GLUCOSE (UA) NEGATIVE (NEGATIVE); URINE KETONE TRACE (NEGATIVE); URINE NITRITE NEGATIVE (NEGATIVE); URINE UROBILINOGEN 4.0 E.U/dl mg/dL (0.2-1.0)
[2018-02-16 16:56] LABS: ANION GAP 13 (8-16); BLOOD UREA NITROGEN 12 mg/dL (7-18); CHLORIDE 104 mmol/L (98-107); CO2 23 mmol/L (21-32); GLUCOSE,RANDOM 100 mg/dL (74-106); POTASSIUM 4.1 mmol/L (3.5-5.1); SODIUM 140 mmol/L (136-145)
[2018-02-16 17:00] LABS: URINE LEUK ESTERASE 2+ (NEGATIVE); URINE PROTEIN 1+ (NEGATIVE)
[2018-02-16 17:00] LABS: ALK PHOS 65 U/L (45-117); BILIRUBIN,TOTAL 0.8 mg/dL (0.2-1.0); CREATININE 0.9 mg/dL (0.55-1.02); SGOT/AST 20 U/L (15-37); SGPT/ALT 12 U/L (12-78); TOT PROT 7.2 g/dl (6.4-8.2)
[2018-02-16 17:02] LABS: EPI CELLS RARE /HPF (FEW); URINE BACTERIA RARE /hpf (NONE SEEN); URINE MUCUS FEW
[2018-02-16 17:29] LABS: ANISOCYTOSIS 2+; MACROCYTOSIS 2+; PLATELET ESTIMATE ADEQUATE
--- NOTE | 2018-02-16 19:11 | EKG ---
Test Reason : Blood Pressure : / mmHG Vent. 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 CURRENT UNDETERMINED RHYTHM PRECLUDES RHYTHM COMPARISON, NEEDS REVIEW Confirmed by MD NAYANA, DIDIER ([id number]) on 02/16/2018 7:11:08 PM Referred By: Confirmed By:DIDIER KRAUS MD
--- NOTE | 2018-02-16 19:55 | PDOC ---
*Physical Exam - Vital Signs Last Vital Signs Temp Pulse Resp BP Pulse Ox 97.5 F L 103 H 17 126/89 95 02/16/18 18:33 02/16/18 18:33 02/16/18 18:33 02/16/18 18:33 02/16/18 18:33 ED Treatment Course - LABORATORY CBC & Chemistry Diagram: 02/16/18 15:40 02/16/18 15:40 - ADDITIONAL ORDERS Additional order review: Laboratory Results 02/16/18 02/16/18 02/16/18 16:40 15:40 15:40 Sodium Potassium Chloride Carbon Dioxide Anion Gap BUN Creatinine Creat Clearance w eGFR Random Glucose Calcium Magnesium Total Bilirubin AST ALT Alkaline Phosphatase Creatine Kinase 29 Troponin I < 0.02 Total Protein Albumin Urine Color Yellow Urine Appearance Clear Urine pH 6.0 Ur Specific [place] 1.011 Urine Protein 1+ H Urine Glucose (UA) Negative Urine Ketones Trace H Urine Blood 1+ H Urine Nitrite Negative Urine Bilirubin Negative Urine Urobilinogen 4.0 e.u/dl H Ur Leukocyte Esterase 2+ H Urine WBC (Auto) 30 Urine RBC (Auto) 2 Ur Epithelial Cells Rare Urine Bacteria Rare Urine Mucus Few Blood Type O POSITIVE Antibody Screen Negative 02/16/18 15:40 Sodium 140 Potassium 4.1 Chloride 104 Carbon Dioxide 23 Anion Gap 13 BUN 12 Creatinine 0.9 Creat Clearance w eGFR > 60 Random Glucose 100 Calcium 9.0 Magnesium 2.0 Total Bilirubin 0.8 AST 20 ALT 12 Alkaline Phosphatase 65 D Creatine Kinase Troponin I Total Protein 7.2 Albumin 3.0 L Urine Color Urine Appearance Urine pH Ur Specific [place] Urine Protein Urine Glucose (UA) Urine Ketones Urine Blood Urine Nitrite Urine Bilirubin Urine Urobilinogen Ur Leukocyte Esterase Urine WBC (Auto) Urine RBC (Auto) Ur Epithelial Cells Urine Bacteria Urine Mucus Blood Type Antibody Screen 02/16/18 15:40 RBC 3.55 L MCV 106.0 H MCHC 34.7 RDW 20.1 H MPV 9.7 Neutrophils % 80.3 Lymphocytes % 5.5 L Monocytes % 12.2 H Eosinophils % 1.6 D Basophils % 0.4 - Medications Given in the ED: ED Medications Discontinued Medications Generic Name Dose Route Start Last Admin Trade Name Freq PRN Reason Stop Dose Admin Sodium Chloride 1,000 mls @ 1,000 mls/hr 02/16/18 15:18 08/19/18 15:55 Normal Saline - IV 02/16/18 16:17 1,000 mls/hr ASDIR STA Administration Sodium Chloride 1,000 mls @ 1,000 mls/hr 02/16/18 18:34 02/16/18 18:50 Normal Saline - IV 02/16/18 19:33 1,000 mls/hr ASDIR STA Administration Ondansetron HCl 4 mg 02/16/18 16:09 02/16/18 16:15 Zofran Injection IVPUSH 02/16/18 16:10 4 mg ONCE ONE Administration Medical Decision Making - Medical Decision Making 02/16/18 19:52 Patient endorsed to me to follow cxr and dispostion. Patient seen and examined she is c/o cough and congestion. Nausea is resolved but she is too weak to go home. P/E lungs with crackles O2 sat 90% on RA with improved to 95% on 2L CXR with increased markings PLAN: will get bnp r/o pulmonary congestion review labs 02/16/18 20:58 noted to have a elevated bnp will hold fluids and give lasix 20mg IV. Case was d/w with Dr. Jeff covering for Dr. Oneil. States admit to medicine /hospitalist. *DC/Admit/Observation/Transfer Diagnosis at time of Disposition: Dehydration, Weakness, Pulmonary congestion Vomiting Qualifiers: Vomiting type: unspecified Vomiting Intractability: intractable Nausea presence : with nausea Qualified Code(s): R11.2 - Nausea with vomiting, unspecified UTI (urinary tract infection) Qualifiers: Urinary tract infection type: site unspecified Hematuria presence: without hematuria Qualified Code(s): N39.0 - Urinary tract infection, site not specified - Discharge Dispostion Condition at time of disposition: Stable Decision to Admit order: Yes - Referrals Referrals: Wilberto Oneil MD [Primary Care Provider] - - Patient Instructions - Post Discharge Activity
[2018-02-16] MEDS ORDERED: CEFTRIAXONE 1,000 MG in DEXTROSE 5%-WATER - 50 ML IVPB ONE (19:57)
[2018-02-16] MEDS ORDERED: VANCOMYCIN 1,000 MG in DEXTROSE 5%-WATER - 250 ML IVPB ONE (20:00)
[2018-02-16] MEDS ORDERED: FUROSEMIDE 40 MG/4 ML INJECTABLE VIAL IVPUSH ONE (20:56)
[2018-02-16] MEDS ORDERED: VANCOMYCIN 1 GRAM (PRE-DOCKED) 1,000 MG/250 ML BAG IVPB ONE (20:57)
--- NOTE | 2018-02-16 22:00 | PN ---
Teaching Attending Note Name of Resident: Mounika Ann ATTENDING PHYSICIAN STATEMENT I saw and evaluated the patient. I reviewed the resident's note and discussed the case with the resident. I agree with the resident's findings and plan as documented. SUBJECTIVE: Patient is an 82 year old woman with PMH of anal CA (on Chemo/RX therapy), afib (not on anticoagulation),HTN, and anxiety complaining of weakness, vomiting and diarrhea for one week. She was seen by Dr. Oneil on , 02/13/18, and was given IV fluids. He suggested she return on Saturday for more fluids but she did not want to return. She states she has gotten progressively worse, with weakness, nausea, vomiting, diarrhea and inability to hold anything down. She denies fever, chills, MALDONADO, CP, SOB, back pain, hematuria, vaginal bleeding, rectal bleeding. OBJECTIVE: Alert, Weak Vital Signs Period Temp Pulse Resp BP Sys/Rao Pulse Ox Last 24 Hr 97.5 F-97.8 F 100-103 16-17 126-144/70-89 90-95 HEENT: No Jaundice, eye redness or discharge, PERRLA, EOMI. Normocephalic, atraumatic. External ears are normal; hearing is diminished. No nasal discharge. Neck: Supple, nontender. No palpable adenopathy or thyromegaly. No JVD Chest: Good effort. Bibasilar crackles. Heart: Regular with ectopics. No S3, rub or murmur Abdomen: Not distended, soft, nontender and no HSM. No rebound or guarding. Normoactive bowel sounds. Ext: Peripheral pulses intact. No leg edema. Skin: Warm and dry. No petechiae, rash or ecchymosis. Neuro: Alert. Oriented x3. CN 2-12 grossly intact. Sensation grossly intact in all four extremities and DTR are symmetric. Home Medications Medication Instructions Recorded Alprazolam [Xanax] 0.25 mg PO BID 10/18/17 Nystatin Oral Suspension - 5 ml Q6H 12/31/17 [Nystatin Oral Susp 546104 Units/5 ML -] Ondansetron [Zofran *Odt*] 8 mg PO Q8H PRN 12/31/17 Silver Sulfadiazine 1% Top Cr 1 tube TP QID 12/31/17 [Silvadene -] Sucralfate [Carafate] 10 ml PO BID 12/31/17 Metoprolol Tartrate [Lopressor -] 25 mg PO BID #60 tablet 01/03/18 Loperamide HCl [Loperamide] 2 mg PO Q6H PRN #10 tablet 01/05/18 Magnesium Oxide [Mgo] 400 mg PO DAILY 7 Days #7 tablet 01/05/18 Megestrol Acetate Oral Susp 400 mg PO DAILY 30 Days #1 cup 01/05/18 [Megace Oral Suspension -] Unobtainable 02/16/18 Abnormal Lab Results 02/16/18 02/16/18 02/16/18 15:40 15:40 15:40 RBC 3.55 L MCV 106.0 H MCH 36.7 H RDW 20.1 H Lymphocytes % 5.5 L Monocytes % 12.2 H B-Natriuretic Peptide 4077.88 H Albumin 3.0 L Urine Protein Urine Ketones Urine Blood Urine Urobilinogen Ur Leukocyte Esterase 02/16/18 16:40 RBC MCV MCH RDW Lymphocytes % Monocytes % B-Natriuretic Peptide Albumin Urine Protein 1+ H Urine Ketones Trace H Urine Blood 1+ H Urine Urobilinogen 4.0 e.u/dl H Ur Leukocyte Esterase 2+ H ASSESSMENT AND PLAN: 1. UTI - Will treat with Rocephin. Weakness also likely due to cancer and the cancer treatment. She got 2 lites of IV NS on 02/13/18 and additional 2 liters in the ER today - developed SOB thereafter necessitating IV lasix. Though she may still be dehydrated, the large amount of IV fluid load in a short time may be causing LV strain. She had normal EF on ECHO two weeks ago, but with BNP 0f 4077, she may have diastolic dysfunction. Future IV fluid administration should be done slowly. Troponin is negative and no evidence of ACS on EKG. CXR shows increased interstitial markings. Consult cardiology for paroxysmal afib - does she need anticoagulation. 2. Hypoalbuminemia - Possibly due to combined effects of malnutrition and inflammation associated with cancer. Will ensure adequate dietary protein intake and also consult fire hose curer. 3. DVT prophylaxis - Lovenox 40 mg SQ q 24 hours. 4. Advance directives - Full code
[2018-02-16] MEDS ORDERED: LOPERAMIDE HCL 2 MG CAPSULE PO PRN (22:45)
--- NOTE | 2018-02-16 22:54 | HP ---
CHIEF COMPLAINT:generalized weakness PCP: HISTORY OF PRESENT ILLNESS: Patient is an 82 year old female with past medical history of anal cancer (on chemo/radiotx), HTN and Anxiety, presented with weakness, nausea and vomiting, and anorexia. Patient has been having alternating diarrhea and constipation as a side effect of her chemotherapy. Three days ago, she complained of generalized weakness and went to Dr. Oneil's office where she was given 2L of IVF. She was asked to follow up the next day but was too weak to go. Yesterday, patient was feeling extremely weak, with nausea and an episode of vomiting and loss of appetite. She asked her daughter to bring her to the ED. At the ED, patient was given 2L IV NS. She started to complain of SOB, O2 sat 90 % at room air. CXR showed interstitial markings, BNP 4077. IVF discontinued and patient was given Lasix. ER course was notable for: (1)BNP 4077 (2)CXR - interstitial markings (3) Recent Travel:denies any recent travel PAST MEDICAL HISTORY: Anal cancer (on chemotx/radiotx) HTN Anxiety PAST SURGICAL HISTORY: Social History: Smoking:nonsmoker Alcohol:occasional EtOH use Drugs: denies illicit drug use Family History: Father - skin CA Allergies Sulfa (Sulfonamide Antibiotics) Allergy (Verified 02/16/18 15:53) HOME MEDICATIONS: Home Medications Medication Instructions Recorded Alprazolam [Xanax] 0.25 mg PO BID 10/18/17 Nystatin Oral Suspension - 5 ml Q6H 12/31/17 [Nystatin Oral Susp 476498 Units/5 ML -] Ondansetron [Zofran *Odt*] 8 mg PO Q8H PRN 12/31/17 Silver Sulfadiazine 1% Top Cr 1 tube TP QID 12/31/17 [Silvadene -] Sucralfate [Carafate] 10 ml PO BID 12/31/17 Metoprolol Tartrate [Lopressor -] 25 mg PO BID #60 tablet 01/03/18 Loperamide HCl [Loperamide] 2 mg PO Q6H PRN #10 tablet 01/05/18 Magnesium Oxide [Mgo] 400 mg PO DAILY 7 Days #7 tablet 01/05/18 Megestrol Acetate Oral Susp 400 mg PO DAILY 30 Days #1 cup 01/05/18 [Megace Oral Suspension -] Unobtainable 02/16/18 REVIEW OF SYSTEMS CONSTITUTIONAL: generalized weakness, loss of appetite Absent: fever, chills, diaphoresis, malaise, weight change HEENT: Absent: rhinorrhea, nasal congestion, throat pain, throat swelling, difficulty swallowing, mouth swelling, ear pain, eye pain, visual changes CARDIOVASCULAR: Absent: chest pain, syncope, palpitations, irregular heart rate, lightheadedness , peripheral edema RESPIRATORY: Absent: cough, shortness of breath, dyspnea with exertion, orthopnea, wheezing, stridor, hemoptysis GASTROINTESTINAL:diarrhea, constipation Absent: abdominal pain, abdominal distension, nausea, vomiting, melena, hematochezia GENITOURINARY: Absent: dysuria, frequency, urgency, hesitancy, hematuria, flank pain, genital pain MUSCULOSKELETAL: Absent: myalgia, arthralgia, joint swelling, back pain, neck pain SKIN: Absent: rash, itching, pallor HEMATOLOGIC/IMMUNOLOGIC: Absent: easy bleeding, easy bruising, lymphadenopathy, frequent infections ENDOCRINE: Absent: unexplained weight gain, unexplained weight loss, heat intolerance, cold intolerance NEUROLOGIC: Absent: headache, focal weakness or paresthesias, dizziness, unsteady gait, seizure, mental status changes, bladder or bowel incontinence PSYCHIATRIC: Absent: anxiety, depression, suicidal or homicidal ideation, hallucinations. PHYSICAL EXAMINATION Vital Signs - 24 hr 02/16/18 02/16/18 02/16/18 14:33 15:20 18:33 Temperature 97.8 F 97.5 F L Pulse Rate 100 H Pulse Rate [ 103 H Apical] Respiratory 16 17 Rate Blood Pressure 144/70 Blood Pressure 126/89 [Left Arm] O2 Sat by Pulse 90 L 95 95 Oximetry (%) GENERAL: Awake, alert, and fully oriented, in no acute distress. HEAD: Normal with no signs of trauma. EYES: PERRLA, EOMI, sclera anicteric, conjunctiva clear. No lid lag. EARS, NOSE, THROAT: Ears normal, nares patent, oropharynx clear without exudates. Moist mucous membranes. NECK: Normal range of motion, supple without lymphadenopathy, JVD, or masses. LUNGS: +crackles, b/l, no wheezing, no use of accessory muscles HEART: Irregularly, irregular, without murmur, rub or gallop. ABDOMEN: Soft, nontender, not distended, normoactive bowel sounds. MUSCULOSKELETAL: Normal range of motion at all joints. No bony deformities or tenderness. No CVA tenderness. UPPER EXTREMITIES: 2+ pulses, warm, well-perfused. No cyanosis. No clubbing. No peripheral edema. LOWER EXTREMITIES: 2+ pulses, warm, well-perfused. No calf tenderness. No peripheral edema. NEUROLOGICAL: Cranial nerves II-XII intact. Normal speech. Normal gait. PSYCHIATRIC: Cooperative. Good eye contact. Appropriate mood and affect. SKIN: Warm, dry, normal turgor, no rashes or lesions noted, normal capillary refill. Laboratory Results - last 24 hr 02/16/18 02/16/18 02/16/18 15:40 15:40 15:40 WBC 5.2 RBC 3.55 L Hgb 13.0 Hct 37.6 MCV 106.0 H MCH 36.7 H MCHC 34.7 RDW 20.1 H Plt Count 197 MPV 9.7 Absolute Neuts (auto) 4.1 Neutrophils % 80.3 Lymphocytes % 5.5 L Monocytes % 12.2 H Eosinophils % 1.6 D Basophils % 0.4 Nucleated RBC % 0 Hypochromia 1+ Platelet Estimate Adequate Anisocytosis 2+ Macrocytosis 2+ Sodium 140 Potassium 4.1 Chloride 104 Carbon Dioxide 23 Anion Gap 13 BUN 12 Creatinine 0.9 Creat Clearance w eGFR > 60 Random Glucose 100 Lactic Acid Calcium 9.0 Magnesium 2.0 Total Bilirubin 0.8 AST 20 ALT 12 Alkaline Phosphatase 65 D Creatine Kinase Troponin I B-Natriuretic Peptide Total Protein 7.2 Albumin 3.0 L Urine Color Urine Appearance Urine pH Ur Specific [place] Urine Protein Urine Glucose (UA) Urine Ketones Urine Blood Urine Nitrite Urine Bilirubin Urine Urobilinogen Ur Leukocyte Esterase Urine WBC (Auto) Urine RBC (Auto) Ur Epithelial Cells Urine Bacteria Urine Mucus Blood Type O POSITIVE Antibody Screen Negative 02/16/18 02/16/18 02/16/18 15:40 15:40 16:40 WBC RBC Hgb Hct MCV MCH MCHC RDW Plt Count MPV Absolute Neuts (auto) Neutrophils % Lymphocytes % Monocytes % Eosinophils % Basophils % Nucleated RBC % Hypochromia Platelet Estimate Anisocytosis Macrocytosis Sodium Potassium Chloride Carbon Dioxide Anion Gap BUN Creatinine Creat Clearance w eGFR Random Glucose Lactic Acid Calcium Magnesium Total Bilirubin AST ALT Alkaline Phosphatase Creatine Kinase 29 Troponin I < 0.02 B-Natriuretic Peptide 4077.88 H Total Protein Albumin Urine Color Yellow Urine Appearance Clear Urine pH 6.0 Ur Specific [place] 1.011 Urine Protein 1+ H Urine Glucose (UA) Negative Urine Ketones Trace H Urine Blood 1+ H Urine Nitrite Negative Urine Bilirubin Negative Urine Urobilinogen 4.0 e.u/dl H Ur Leukocyte Esterase 2+ H Urine WBC (Auto) 30 Urine RBC (Auto) 2 Ur Epithelial Cells Rare Urine Bacteria Rare Urine Mucus Few Blood Type Antibody Screen 02/16/18 20:30 WBC RBC Hgb Hct MCV MCH MCHC RDW Plt Count MPV Absolute Neuts (auto) Neutrophils % Lymphocytes % Monocytes % Eosinophils % Basophils % Nucleated RBC % Hypochromia Platelet Estimate Anisocytosis Macrocytosis Sodium Potassium Chloride Carbon Dioxide Anion Gap BUN Creatinine Creat Clearance w eGFR Random Glucose Lactic Acid 1.6 Calcium Magnesium Total Bilirubin AST ALT Alkaline Phosphatase Creatine Kinase Troponin I B-Natriuretic Peptide Total Protein Albumin Urine Color Urine Appearance Urine pH Ur Specific [place] Urine Protein Urine Glucose (UA) Urine Ketones Urine Blood Urine Nitrite Urine Bilirubin Urine Urobilinogen Ur Leukocyte Esterase Urine WBC (Auto) Urine RBC (Auto) Ur Epithelial Cells Urine Bacteria Urine Mucus Blood Type Antibody Screen CBC, BMP 02/16/18 15:40 02/16/18 15:40 ASSESSMENT/PLAN: Patient is an 82 year old female with past medical history of anal cancer (on chemo/radiotx), HTN and Anxiety, presented with weakness, nausea and vomiting, and anorexia. #Urinary Tract Infection: -UA showed WBC 30, leukocyte esterase +2 -Urine cx pending -Ceftriaxone 1gm daily started #Fluid overload: Patient started experiencing SOB after 2L IV NS was given at the ED. BNP was 4077. -CXR showed interstitial markings. -Echo done last 12/2017 showed EF 60-65% with no wall motion abnormalities. -IVF discontinued. -Lasix 20 mg was given at the ED. -Once congestion resolves, consider giving IV fluids at slow rate. #Paroxysmal atrial fibrillation -new onset diagnosed last 12/2017 -continue Metoprolol 25 mg BID -Not on any anticoagulant due to low platelet on previous admission. -Dr. Hernandez consult appreciated. #FEN -not on any standing fluids at this time -encourage increased oral fluid intake -electrolytes wnl, routine bmp monitoring -regular diet #Prophylaxis -Enoxaparin 40 mg sq daily #Disposition -admit to med-surg -full code Visit type - Emergency Visit Emergency Visit: Yes ED Registration Date: 02/16/18 Care time: The patient presented to the Emergency Department on the above date and was hospitalized for further evaluation of their emergent condition. - New Patient This patient is new to me today: Yes Date on this admission: 02/17/18 - Critical Care Critical Care patient: No Hospitalist Screening - Colonoscopy Questionnaire Colonoscopy Questionnaire: Colonoscopy Questionnaire - Patient: 50 - 75 years old and never had a screening colonoscopy: Unknown History of colon or rectal polyps, or CA: Unknown History of IBD, Crohn's disease or UC: Unknown History of abdominal radiation therapy as a child: Unknown - Relative: 1 with colon or rectal CA, or polyps at age 60 or younger: Unknown Colon or rectal CA diagnosed at age 45 or younger: Unknown Multiple relatives with colon or rectal CA: Unknown - Outcome: Screening Result: Negative Screen
[2018-02-16] MEDS ORDERED: FUROSEMIDE 40 MG/4 ML INJECTABLE VIAL ONE (23:23)
[2018-02-17] MEDS: NYSTATIN 500,000 UNITS/5 ML SUSPENSION PO SCH ×4 (00:39→18:18)
[2018-02-17 06:36] LABS: HEMATOCRIT 31.5 % (32.4-45.2); HEMOGLOBIN 11.1 GM/dL (10.7-15.3); MCH 36.7 pg (25.7-33.7); MCHC 35.2 g/dl (32.0-36.0); MEAN CELL VOLUME 104.5 fl (80-96); MEAN PLT VOLUME 9.6 fl (7.5-11.1); PLATELET COUNT 171 K/MM3 (134-434); RBC 3.02 M/mm3 (3.60-5.2); RDW 19.7 % (11.6-15.6); WHITE BLOOD COUNT 6.5 K/mm3 (4.0-10.0)
[2018-02-17 06:48] LABS: ANION GAP 10 (8-16); BLOOD UREA NITROGEN 9 mg/dL (7-18); CALCIUM 7.6 mg/dL (8.5-10.1); CHLORIDE 104 mmol/L (98-107); CO2 25 mmol/L (21-32); CREATININE 0.7 mg/dL (0.55-1.02); GLUCOSE,RANDOM 105 mg/dL (74-106); MAGNESIUM 1.6 mg/dL (1.8-2.4); PHOSPHOROUS 2.8 mg/dL (2.5-4.9); POTASSIUM 3.2 mmol/L (3.5-5.1); SODIUM 139 mmol/L (136-145)
[2018-02-17] MEDS ORDERED: POTASSIUM CHLORIDE TABS 20 MEQ TABLET.ER (FP) PO ONE (07:30)
[2018-02-17] MEDS ORDERED: CEFTRIAXONE 1 GM/50 ML BAG ONE (09:05)
[2018-02-17] MEDS ORDERED: ALPRAZolam 0.25 MG TABLET ONE (09:08)
[2018-02-17] MEDS ORDERED: MAGNESIUM SULF 50% (8.12 MEQ/2 ML-1 GM VIAL) IVPB ONE (09:12)
--- NOTE | 2018-02-17 09:17 | PN ---
Physical Exam: SUBJECTIVE: Patient is a 82 y/o female with a history of anal cancer ( on chem/radiation), HTN, and Anxiety who is admitted for UTI. Patient denies pain on urination or abdominal pressure. Patient reports she feels okay and she is only hungry. No acute events overnight. OBJECTIVE: Vital Signs Temperature 98.7 F 02/17/18 00:47 Pulse Rate 103 H 02/16/18 18:33 Respiratory Rate 17 02/16/18 18:33 Blood Pressure 126/89 02/16/18 18:33 O2 Sat by Pulse Oximetry (%) 95 02/16/18 18:33 GENERAL: The patient is awake, alert, and fully oriented, in no acute distress. LUNGS: Breath sounds equal,slight expiratory wheezes at bases HEART: irregularly irregular ABDOMEN: Soft, nontender, nondistended, normoactive bowel sounds EXTREMITIES: 2+ pulses, warm, well-perfused, no edema. PSYCH: Normal mood, normal affect. SKIN: Warm, dry, normal turgor, no rashes or lesions noted CBC, BMP 02/17/18 06:00 02/17/18 06:00 Urine Test Results Urine Color Yellow 02/16/18 16:40 Urine Appearance Clear 02/16/18 16:40 Urine pH 6.0 (5.0-8.0) 02/16/18 16:40 Ur Specific [place] 1.011 (1.001-1.035) 02/16/18 16:40 Urine Protein 1+ (NEGATIVE) H 02/16/18 16:40 Urine Glucose (UA) Negative (NEGATIVE) 02/16/18 16:40 Urine Ketones Trace (NEGATIVE) H 02/16/18 16:40 Urine Blood 1+ (NEGATIVE) H 02/16/18 16:40 Urine Nitrite Negative (NEGATIVE) 02/16/18 16:40 Urine Bilirubin Negative (<2.0 mg/dL) 02/16/18 16:40 Ur Leukocyte Esterase 2+ (NEGATIVE) H 02/16/18 16:40 Ur Epithelial Cells Rare /HPF (FEW) 02/16/18 16:40 Urine Bacteria Rare /hpf (NONE SEEN) 02/16/18 16:40 Urine Mucus Few 02/16/18 16:40 Active Medications Alprazolam (Xanax -) 0.25 mg PO BID JAKUB Enoxaparin Sodium (Lovenox -) 40 mg SQ DAILY [facility] Ceftriaxone Sodium 1 gm/ (Dextrose) 50 mls @ 100 mls/hr IVPB DAILY [facility] Loperamide HCl (Imodium -) 2 mg PO Q6H PRN PRN Reason: DIARRHEA Magnesium Oxide (Mag-Ox -) 400 mg PO DAILY [facility] Megestrol Acetate (Megace Oral Suspension -) 400 mg PO DAILY [facility] Metoprolol Tartrate (Lopressor -) 25 mg PO BID [facility] Nystatin (Nystatin Oral Suspension -) 500,000 units PO Q6HPO [facility] Last Admin: 02/17/18 06:15 Dose: 500,000 units Ondansetron HCl (Zofran Odt -) 8 mg SL Q8H PRN PRN Reason: NAUSEA AND/OR VOMITING Sucralfate (Carafate Oral Suspension -) 1 gm PO BID [facility] ASSESSMENT/PLAN: Patient is a 82 y/o female with a history of anal cancer ( on chem/radiation), HTN, and Anxiety who is admitted for UTI. #UTI - UA: WBC 30, LE 2+ - urine cx pending - Ceftriaxone 1gm dialy - denies symptoms - NS @42 #fluid overload - lasix 20 in ED - CXR: interstitial markings - Echo 12/2017 EF 60-65% with no wall abnormalities #afib - metoprolol 25 mg BID - not on anticoagulation - f/u Dr. Hernandez #DVT ppx - Lovenox 40 mg sq daily #anxiety - xanax .25 mg FEN: - K-dur given - regular diet Dispo: Visit type - Emergency Visit Emergency Visit: No - New Patient This patient is new to me today: No - Critical Care Critical Care patient: No
[2018-02-17] MEDS ORDERED: MAGNESIUM 1GM/D5W - 1 GM/100 ML IVPB IVPB ONE (09:45)
[2018-02-17] MEDS ORDERED: MAGNESIUM OXIDE 400 MG TABLET (FP) PO SCH (10:00)
[2018-02-17] MEDS: METOPROLOL TARTRATE 25 MG TABLET (FP) PO SCH ×2 (10:05→22:34)
[2018-02-17] MEDS: ENOXAPARIN NA (PORCINE) 40 MG/0.4 ML DISP.SYRIN SQ SCH (10:05)
[2018-02-17] MEDS: SUCRALFATE 1 GM/10 ML UNIT DOSE CUPS PO SCH ×2 (10:05→22:33)
[2018-02-17] MEDS: MEGESTROL ACETATE 400 MG/10 ML UNIT DOSE CUP PO SCH (10:06)
[2018-02-17] MEDS: ALPRAZolam 0.25 MG TABLET PO SCH ×2 (10:06→22:34)
[2018-02-17] MEDS: CEFTRIAXONE 1 GM in DEXTROSE 5%-WATER - 50 ML IVPB SCH (10:06)
[2018-02-17] MEDS ORDERED: SODIUM CHLORIDE 1,000 ML IV SCH (14:45)
[2018-02-17] MEDS ORDERED: FUROSEMIDE 40 MG/4 ML INJECTABLE VIAL IVPUSH ONE (17:05)
--- NOTE | 2018-02-17 17:10 | ECHO ---
Name: JARRETT PENDLETON Exam:Adult Echocardiogram Study Date: 02/17/2018 02:02 PM Age: 82 yrs Reason For Study: CHF Height: 66 in Weight: 148 lb BSA: 1.8 m2 MMode/2D Measurements & Calculations IVSd: 0.89 cm Ao root diam: 2.9 cm LVIDd: 4.5 cm LA dimension: 4.6 cm LVIDs: 3.1 cm ACS: 1.2 cm LVPWd: 0.91 cm IVSs: 0.92 cm LVPWs: 1.2 cm EDV(Teich): 91.5 ml ESV(Teich): 37.3 ml Doppler Measurements & Calculations MV E max yifan: 88.4 cm/sec Ao V2 max: 159.3 cm/sec MV A max yifan: 39.5 cm/sec Ao max P.2 mmHg MV E/A: 2.2 Ao V2 mean: 120.5 cm/sec Ao mean P.4 mmHg Ao V2 VTI: 27.0 cm AI P1/2t: 495.1 msec AI max yifan: 355.4 cm/sec MR max yifan: 525.2 cm/sec AI max P.6 mmHg MR max P.3 mmHg AI dec slope: 210.2 cm/sec2 TR max yifan: 230.9 cm/sec Med Peak E' Yifan: 7.0 cm/sec TR max P.3 mmHg Med E/e': 12.6 Lat Peak E' Yifan: 4.2 cm/sec Lat E/e': 21.2 Procedure The study was technically adequate with some images being suboptimal in quality. Left Ventricle The left ventricular size, thickness and function are normal. Ejection Fraction = 65-70%. Diastolic dysfunction, Grade II (pseudonormalization pattern). Right Ventricle The right ventricle is normal in size and function. Atria The left atrium is mildly dilated. Mitral Valve There is mild mitral annular calcification. There is mild mitral valve thickening. There is moderate mitral regurgitation. Tricuspid Valve The tricuspid valve is not well visualized, but is grossly normal. There is Trace to mild tricuspid regurgitation. Aortic Valve There is mild to moderate aortic sclerosis.;. The aortic valve opens well. Trace to mild aortic regur gitation. Pulmonic Valve The pulmonic valve is not well visualized. Great Vessels The aortic root is normal size. Pericardium/Pleura There is no pericardial effusion. Interpretation Summary Compared to the prior echo report on 12/30/2017, there is no significant change. There is mild to mod erate aortic sclerosis.; The left atrium is mildly dilated. There is Trace to mild tricuspid regurgitation. The left ventricular size, thickness and function are normal Ejection Fraction = 65-70%. The right ventricle is normal in size and function. Trace to mild aortic regurgitation. Diastolic dysfunction, Grade II (pseudonormalization pattern). There is moderate mitral regurgitation. David Castrejon MD 02/17/2018 05:10 PM
--- NOTE | 2018-02-17 17:39 | PN ---
Teaching Attending Note Name of Resident: Carolyn Dye ATTENDING PHYSICIAN STATEMENT I saw and evaluated the patient. I reviewed the resident's note and discussed the case with the resident. I agree with the resident's findings and plan as documented. SUBJECTIVE: Patient came to the floor from ED. the nurse called to evaluate the patient. Patient was found to be short of breath. OBJECTIVE: Vital Signs Temperature 97.7 F 02/17/18 17:03 Pulse Rate 120 H 02/17/18 17:03 Respiratory Rate 20 02/17/18 17:03 Blood Pressure 134/79 02/17/18 17:03 O2 Sat by Pulse Oximetry (%) 92 L 02/17/18 17:03 CBCD WBC 6.5 K/mm3 (4.0-10.0) 02/17/18 06:00 RBC 3.02 M/mm3 (3.60-5.2) L 02/17/18 06:00 Hgb 11.1 GM/dL (10.7-15.3) 02/17/18 06:00 Hct 31.5 % (32.4-45.2) L D 02/17/18 06:00 MCV 104.5 fl (80-96) H 02/17/18 06:00 MCHC 35.2 g/dl (32.0-36.0) 02/17/18 06:00 RDW 19.7 % (11.6-15.6) H 02/17/18 06:00 Plt Count 171 K/MM3 (134-434) 02/17/18 06:00 MPV 9.6 fl (7.5-11.1) 02/17/18 06:00 CMP Sodium 139 mmol/L (136-145) 02/17/18 06:00 Potassium 3.2 mmol/L (3.5-5.1) L 02/17/18 06:00 Chloride 104 mmol/L (98-107) 02/17/18 06:00 Carbon Dioxide 25 mmol/L (21-32) 02/17/18 06:00 Anion Gap 10 (8-16) 02/17/18 06:00 BUN 9 mg/dL (7-18) 02/17/18 06:00 Creatinine 0.7 mg/dL (0.55-1.02) 02/17/18 06:00 Creat Clearance w eGFR > 60 (>60) 02/17/18 06:00 Random Glucose 105 mg/dL (74-106) 02/17/18 06:00 Calcium 7.6 mg/dL (8.5-10.1) L 02/17/18 06:00 Total Bilirubin 0.8 mg/dL (0.2-1.0) 02/16/18 15:40 AST 20 U/L (15-37) 02/16/18 15:40 ALT 12 U/L (12-78) 02/16/18 15:40 Alkaline Phosphatase 65 U/L (45-117) D 02/16/18 15:40 Total Protein 7.2 g/dl (6.4-8.2) 02/16/18 15:40 Albumin 3.0 g/dl (3.4-5.0) L 02/16/18 15:40 CARDIAC ENZYMES Creatine Kinase 29 IU/L (26-192) 02/16/18 15:40 Troponin I < 0.02 ng/ml (0.00-0.05) 02/16/18 15:40 Current Medications Generic Name Dose Route Start Last Admin Trade Name Freq PRN Reason Stop Dose Admin Alprazolam 0.25 mg 02/17/18 10:00 02/17/18 10:06 Xanax - PO 0.25 mg BID JAKUB Administration Enoxaparin Sodium 40 mg 02/17/18 10:00 02/17/18 10:05 Lovenox - SQ 40 mg DAILY JAKUB Administration Furosemide 20 mg 02/18/18 06:00 Lasix Injection - IVPUSH BID@0600,1400 [facility] Ceftriaxone Sodium 1 gm/ 50 mls @ 100 mls/hr 02/17/18 10:00 02/17/18 10:06 Dextrose IVPB 100 mls/hr DAILY JAKUB Administration Loperamide HCl 2 mg 02/16/18 22:45 Imodium - PO Q6H PRN DIARRHEA Megestrol Acetate 400 mg 02/17/18 10:00 02/17/18 10:06 Megace Oral Suspension - PO 400 mg DAILY JAKUB Administration Metoprolol Tartrate 25 mg 02/17/18 10:00 02/17/18 10:05 Lopressor - PO 25 mg BID JAKUB Administration Nystatin 500,000 units 02/16/18 23:00 02/17/18 12:55 Nystatin Oral Suspension - PO 500,000 units Q6HPO JAKUB Administration Ondansetron HCl 8 mg 02/16/18 22:45 Zofran Odt - SL Q8H PRN NAUSEA AND/OR VOMITING Sucralfate 1 gm 02/17/18 10:00 02/17/18 10:05 Carafate Oral Suspension - PO 1 gm BID JAKUB Administration Home Medications Medication Instructions Recorded Alprazolam [Xanax] 0.25 mg PO BID 10/18/17 Ondansetron [Zofran *Odt*] 8 mg PO Q8H PRN 12/31/17 Silver Sulfadiazine 1% Top Cr 1 tube TP QID 12/31/17 [Silvadene -] Sucralfate [Carafate] 10 ml PO BID 12/31/17 Metoprolol Tartrate [Lopressor -] 25 mg PO BID #60 tablet 01/03/18 Loperamide HCl [Loperamide] 2 mg PO Q6H PRN #10 tablet 01/05/18 Megestrol Acetate Oral Susp 400 mg PO DAILY 30 Days #1 cup 01/05/18 [Megace Oral Suspension -] PE:Chest; positice for crackles and positive for rales [id number] positive for S3 ExT: no edema neuro: AAOX3 rest of PE per resident's note CXR: positive for congestive changes. ASSESSMENT AND PLAN: Patient is a 82 y/o female with a history of anal cancer ( chem/RTx), HTN, and Anxiety who is admitted for intractable nausea and vomiting and UTI overnight. # Acute exacerbation of CHF On Lasix 20mg IV bid, CXr in am , cardio consult , 2l NC keep sat>93% Echo 12/2017 EF 60-65% with no wall abnormalities, Magana catheter now. # Intractable nausea and vomiting is stable now. #UTI on IV ROcephin continue #afib wit rate controlled continue metoprolol 25 mg BID #DVT ppx: Lovenox
--- NOTE | 2018-02-17 18:26 | CON.CARD ---
Consult Consult Specialty:: cardiology Reason for Consultation:: weakness - History of Present Illness Chief Complaint: A&Ox3; weak; constant mild pressure-like diffuse chest discomfort. Pt's son and grandaughter are at beside. History of Present Illness: 82 y/o afebrile white female (ariel Castellanos), accompanied by her daughter, with PMH of anal CA (on Chemo/RX therapy), HTN, anxiety c/o weakness, vomiting and diarrhea. HISTORY OF PRESENT ILLNESS: The patient states these symptoms started last week. She was seen by Dr. Oneil on , 02/13, and was given IV fluids. He suggested she return on Saturday for more fluids but she did not want to return. She states she has gotten progressively worse, with weakness, nausea, vomiting, diarrhea and inability to hold anything down. She denies fever, chills, MALDONADO, CP, SOB, back pain, hematuria, vaginal bleeding, rectal bleeding. Allergies: Sulfonamide antibiotics. Social History: No reported alcohol, cigarette, or drug use. Surgical History: Back - History Source History Provided By: Patient, Family Member, Medical Record Limitations to Obtaining History: No Limitations - Past Medical History Cardio/Vascular: Yes: HTN Gastrointestinal: Yes: Diverticulosis, GI Bleed Renal/: Yes: Hematuria ...: No Psych: Yes: Anxiety Rheumatology: Yes: Fibromyalgia - Past Surgical History Past Surgical History: Yes: Hysterectomy, Joint Replacement (right knee) - Alcohol/Substance Use Hx Alcohol Use: No History of Substance Use: reports: None - Smoking History Smoking history: Never smoked Have you smoked in the past 12 months: No - Social History Usual Living Arrangement: Alone ADL: Independent 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 Home Medications - Allergies Allergies/Adverse Reactions: Allergies Allergy/AdvReac Type Severity Reaction Status Date / Time Sulfa (Sulfonamide Allergy Verified 02/16/18 15:53 Antibiotics) - Home Medications Home Medications: Ambulatory Orders Alprazolam [Xanax] 0.25 mg PO BID 10/18/17 Ondansetron [Zofran *Odt*] 8 mg PO Q8H PRN 12/31/17 Silver Sulfadiazine 1% Top Cr [Silvadene -] 1 tube TP QID 12/31/17 Sucralfate [Carafate] 10 ml PO BID 12/31/17 Metoprolol Tartrate [Lopressor -] 25 mg PO BID #60 tablet 01/03/18 Loperamide HCl [Loperamide] 2 mg PO Q6H PRN #10 tablet 01/05/18 Megestrol Acetate Oral Susp [Megace Oral Suspension -] 400 mg PO DAILY 30 Days # 1 cup 01/05/18 Family Disease History - Family Disease History Family Disease History: CA: Father (leukemia), Sister (breast cancer), Other: Mother (alzheimer) Review of Systems - Review of Systems Constitutional: reports: Loss of Appetite, Weakness Eyes: reports: No Symptoms HENT: reports: No Symptoms Vital Signs: Vital Signs Temperature 97.7 F 02/17/18 17:03 Pulse Rate 120 H 02/17/18 17:03 Respiratory Rate 20 02/17/18 17:03 Blood Pressure 134/79 02/17/18 17:03 O2 Sat by Pulse Oximetry (%) 92 L 02/17/18 17:03 - Other Data Labs, Other Data: CBC, BMP 02/17/18 06:00 02/17/18 06:00 Troponin, BNP 02/16/18 15:40 B-Natriuretic Peptide 4077.88 H Troponin, BNP 02/16/18 15:40 B-Natriuretic Peptide 4077.88 H Problem List - Problems (1) Dehydration Code(s): E86.0 - DEHYDRATION (2) Vomiting Code(s): R11.10 - VOMITING, UNSPECIFIED Qualifiers: Vomiting type: unspecified Vomiting Intractability: intractable Nausea presence: with nausea Qualified Code(s): R11.2 - Nausea with vomiting, unspecified (3) Weakness Code(s): R53.1 - WEAKNESS (4) Anal cancer Code(s): C21.0 - MALIGNANT NEOPLASM OF ANUS, UNSPECIFIED (5) Anxiety and depression Code(s): F41.9 - ANXIETY DISORDER, UNSPECIFIED; F32.9 - MAJOR DEPRESSIVE DISORDER, SINGLE EPISODE, UNSPECIFIED (6) Atrial fibrillation Code(s): I48.91 - UNSPECIFIED ATRIAL FIBRILLATION Qualifiers: Atrial fibrillation type: unspecified Qualified Code(s): I48.91 - Unspecified atrial fibrillation (7) Hypokalemia Assessment/Plan: repleted both K and Mg; f/u levels in am. Code(s): E87.6 - HYPOKALEMIA (8) Thrombocytopenia Code(s): D69.6 - THROMBOCYTOPENIA, UNSPECIFIED (9) Chest discomfort Assessment/Plan: related to cough. TNI < 0.02; f/u serially. No acute ST-T changes.on EKG. Symptoms likely due to acute diastolic CHF. Code(s): R07.89 - OTHER CHEST PAIN (10) Acute diastolic CHF (congestive heart failure) Assessment/Plan: +JVP CXR: congestive changes BNP>4,000 On furosemide. F/u daily weight, BUN/Cr, electrolytes, and Is and Os. Code(s): I50.31 - ACUTE DIASTOLIC (CONGESTIVE) HEART FAILURE
--- NOTE | 2018-02-17 19:57 | CONSULT ---
Consult Consult Specialty:: Oncology Referred by:: Hospitalist Reason for Consultation:: Anal ca -s/p chemotherapy/RT - History of Present Illness Chief Complaint: Chest pressure,. Nausea, diarrhea , congestion - History Source History Provided By: Patient, Medical Record Limitations to Obtaining History: No Limitations - Past Medical History Cardio/Vascular: Yes: HTN Gastrointestinal: Yes: Diverticulosis, GI Bleed Renal/: Yes: Hematuria ...: No Psych: Yes: Anxiety Rheumatology: Yes: Fibromyalgia - Past Surgical History Past Surgical History: Yes: Hysterectomy, Joint Replacement (right knee) - Alcohol/Substance Use Hx Alcohol Use: No History of Substance Use: reports: None - Smoking History Smoking history: Never smoked Have you smoked in the past 12 months: No - Social History Usual Living Arrangement: Alone ADL: Independent 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 Home Medications - Allergies Allergies/Adverse Reactions: Allergies Allergy/AdvReac Type Severity Reaction Status Date / Time Sulfa (Sulfonamide Allergy Verified 02/16/18 15:53 Antibiotics) - Home Medications Home Medications: Ambulatory Orders Alprazolam [Xanax] 0.25 mg PO BID 10/18/17 Ondansetron [Zofran *Odt*] 8 mg PO Q8H PRN 12/31/17 Silver Sulfadiazine 1% Top Cr [Silvadene -] 1 tube TP QID 12/31/17 Sucralfate [Carafate] 10 ml PO BID 12/31/17 Metoprolol Tartrate [Lopressor -] 25 mg PO BID #60 tablet 01/03/18 Loperamide HCl [Loperamide] 2 mg PO Q6H PRN #10 tablet 01/05/18 Megestrol Acetate Oral Susp [Megace Oral Suspension -] 400 mg PO DAILY 30 Days # 1 cup 01/05/18 Family Disease History - Family Disease History Family Disease History: CA: Father (leukemia), Sister (breast cancer), Other: Mother (alzheimer) Review of Systems - Review of Systems Constitutional: reports: Loss of Appetite, Unintentional Wgt. Loss, Weakness Eyes: denies: Blurred Vision, Double Vision, Photophobia HENT: denies: Throat Pain Neck: denies: Swollen Glands, Tenderness Cardiovascular: reports: Chest Pain, Shortness of Breath Respiratory: reports: Exercise Intolerance, SOB, SOB on Exertion Gastrointestinal: reports: Diarrhea, Nausea, Vomiting, Other (Erythema anal area ; nodularity 9:00 rectal exam) Genitourinary: reports: Dysuria, Frequency Breasts: reports: No Symptoms Reported Musculoskeletal: reports: Muscle Weakness Integumentary: denies: Bruising, Eczema, Pruritis Neurological: reports: No Symptoms Endocrine: reports: No Symptoms Hematology/Lymphatic: reports: No Symptoms Psychiatric: reports: No Symptoms, Anxiety Physical Exam Vital Signs: Vital Signs Temperature 97.7 F 02/17/18 17:03 Pulse Rate 120 H 02/17/18 17:03 Respiratory Rate 20 02/17/18 17:03 Blood Pressure 134/79 02/17/18 17:03 O2 Sat by Pulse Oximetry (%) 92 L 02/17/18 17:03 Constitutional: Yes: Moderate Distress Eyes: Yes: PERRL HENT: No: Epistaxis, Pharyngeal Erythema, Tonsillar Exudate Neck: No: Lymphadenopathy, Tenderness, Thyromegaly Cardiovascular: Yes: Pulse Irregular Respiratory: Yes: Rhonchi, Wheezes Gastrointestinal: Yes: Normal Bowel Sounds. No: Abdomen, Obese, Ascites, Hepatomegaly, Splenomegaly, Tenderness, Tenderness, Rebound ...Rectal Exam: Yes: Sphincter Tone Normal, Other (erythema perirectal/anal area nodularity 9:00 digital rectal exam) Renal/: Yes: Magana Present. No: CVA Tenderness - Left, CVA Tenderness - Right Breast(s): Yes: WNL, Left, Right Musculoskeletal: Yes: Muscle Weakness Extremities: Yes: WNL Edema: No Integumentary: No: Bruising, Jaundice Neurological: Yes: WNL ...Motor Strength: WNL Psychiatric: Yes: WNL Labs: CBC, BMP 02/17/18 06:00 02/17/18 06:00 Problem List - Problems (1) Acute diastolic CHF (congestive heart failure) Code(s): I50.31 - ACUTE DIASTOLIC (CONGESTIVE) HEART FAILURE (2) Chest discomfort Assessment/Plan: Likely secondary to CHF Monitored and followed by cardiology Code(s): R07.89 - OTHER CHEST PAIN (3) UTI (urinary tract infection) Assessment/Plan: under therapy Code(s): N39.0 - URINARY TRACT INFECTION, SITE NOT SPECIFIED Qualifiers: Urinary tract infection type: site unspecified Hematuria presence: without hematuria Qualified Code(s): N39.0 - Urinary tract infection, site not specified (4) Anal cancer Assessment/Plan: s/p RT and 5FU and Mitomycin. has had side effects including anorexia, weight loss, nausea, emesis, diarrhea , admixed with constipation. Will need to monitor. Code(s): C21.0 - MALIGNANT NEOPLASM OF ANUS, UNSPECIFIED (5) Atrial fibrillation Assessment/Plan: currently being monitored - off a/c Code(s): I48.91 - UNSPECIFIED ATRIAL FIBRILLATION Qualifiers: Atrial fibrillation type: unspecified Qualified Code(s): I48.91 - Unspecified atrial fibrillation (6) Thrombocytopenia Assessment/Plan: secondary to RT/ chemotherapy. Prior history of rectal bleeding. Code(s): D69.6 - THROMBOCYTOPENIA, UNSPECIFIED
[2018-02-18] MEDS: NYSTATIN 500,000 UNITS/5 ML SUSPENSION PO SCH ×5 (00:42→23:03)
[2018-02-18] MEDS ORDERED: PORTA CATH FLUSH 10 ML IVPUSH ONE (03:02)
[2018-02-18] MEDS: FUROSEMIDE 40 MG/4 ML INJECTABLE VIAL IVPUSH SCH ×2 (06:00→13:26)
[2018-02-18 07:09] LABS: HEMATOCRIT 34.7 % (32.4-45.2); HEMOGLOBIN 11.7 GM/dL (10.7-15.3); MCH 35.4 pg (25.7-33.7); MCHC 33.6 g/dl (32.0-36.0); MEAN CELL VOLUME 105.3 fl (80-96); MEAN PLT VOLUME 9.7 fl (7.5-11.1); PLATELET COUNT 196 K/MM3 (134-434); RDW 19.5 % (11.6-15.6); WHITE BLOOD COUNT 6.8 K/mm3 (4.0-10.0)
--- NOTE | 2018-02-18 09:19 | PN ---
Teaching Attending Note Name of Resident: Carolyn Dye ATTENDING PHYSICIAN STATEMENT I saw and evaluated the patient. I reviewed the resident's note and discussed the case with the resident. I agree with the resident's findings and plan as documented. SUBJECTIVE: Patient is feeling better today , on NC comfortable , NAD OBJECTIVE: Vital Signs Temperature 98.1 F 02/18/18 05:49 Pulse Rate 113 H 02/18/18 05:49 Respiratory Rate 20 02/18/18 05:49 Blood Pressure 103/60 02/18/18 05:49 O2 Sat by Pulse Oximetry (%) 92 L 02/17/18 21:00 CBCD WBC 6.8 K/mm3 (4.0-10.0) 02/18/18 06:00 RBC 3.30 M/mm3 (3.60-5.2) L 02/18/18 06:00 Hgb 11.7 GM/dL (10.7-15.3) 02/18/18 06:00 Hct 34.7 % (32.4-45.2) 02/18/18 06:00 MCV 105.3 fl (80-96) H 02/18/18 06:00 MCHC 33.6 g/dl (32.0-36.0) 02/18/18 06:00 RDW 19.5 % (11.6-15.6) H 02/18/18 06:00 Plt Count 196 K/MM3 (134-434) 02/18/18 06:00 MPV 9.7 fl (7.5-11.1) 02/18/18 06:00 CMP Sodium 139 mmol/L (136-145) 02/17/18 06:00 Potassium 3.2 mmol/L (3.5-5.1) L 02/17/18 06:00 Chloride 104 mmol/L (98-107) 02/17/18 06:00 Carbon Dioxide 25 mmol/L (21-32) 02/17/18 06:00 Anion Gap 10 (8-16) 02/17/18 06:00 BUN 9 mg/dL (7-18) 02/17/18 06:00 Creatinine 0.7 mg/dL (0.55-1.02) 02/17/18 06:00 Creat Clearance w eGFR > 60 (>60) 02/17/18 06:00 Random Glucose 105 mg/dL (74-106) 02/17/18 06:00 Calcium 7.6 mg/dL (8.5-10.1) L 02/17/18 06:00 Total Bilirubin 0.8 mg/dL (0.2-1.0) 02/16/18 15:40 AST 20 U/L (15-37) 02/16/18 15:40 ALT 12 U/L (12-78) 02/16/18 15:40 Alkaline Phosphatase 65 U/L (45-117) D 02/16/18 15:40 Total Protein 7.2 g/dl (6.4-8.2) 02/16/18 15:40 Albumin 3.0 g/dl (3.4-5.0) L 02/16/18 15:40 CARDIAC ENZYMES Creatine Kinase 29 IU/L (26-192) 02/16/18 15:40 Troponin I < 0.02 ng/ml (0.00-0.05) 02/16/18 15:40 Current Medications Generic Name Dose Route Start Last Admin Trade Name Freq PRN Reason Stop Dose Admin Alprazolam 0.25 mg 02/17/18 10:00 02/18/18 10:02 Xanax - PO 0.25 mg BID JAKUB Administration Enoxaparin Sodium 40 mg 02/17/18 10:00 02/18/18 10:02 Lovenox - SQ 40 mg DAILY JAKUB Administration Furosemide 20 mg 02/18/18 06:00 02/18/18 13:26 Lasix Injection - IVPUSH 20 mg BID@0600,1400 JAKUB Administration IV Flush 10 ml 02/18/18 10:38 Noble-Cath Flush IVPUSH PRN PRN FLUSH Ceftriaxone Sodium 1 gm/ 50 mls @ 100 mls/hr 02/17/18 10:00 02/18/18 10:03 Dextrose IVPB 100 mls/hr DAILY JAKUB Administration Loperamide HCl 2 mg 02/16/18 22:45 Imodium - PO Q6H PRN DIARRHEA Megestrol Acetate 400 mg 02/17/18 10:00 02/18/18 13:29 Megace Oral Suspension - PO 400 mg DAILY JAKUB Administration Metoprolol Tartrate 25 mg 02/17/18 10:00 02/18/18 10:02 Lopressor - PO 25 mg BID JAKUB Administration Nystatin 500,000 units 02/16/18 23:00 02/18/18 13:26 Nystatin Oral Suspension - PO 500,000 units Q6HPO JAKUB Administration Ondansetron HCl 8 mg 02/16/18 22:45 Zofran Odt - SL Q8H PRN NAUSEA AND/OR VOMITING Potassium Chloride 20 meq 02/18/18 22:00 K-Dur - PO BID JAKUB Sucralfate 1 gm 02/17/18 10:00 02/18/18 10:02 Carafate Oral Suspension - PO 1 gm BID JAKUB Administration Home Medications Medication Instructions Recorded Alprazolam [Xanax] 0.25 mg PO BID 10/18/17 Ondansetron [Zofran *Odt*] 8 mg PO Q8H PRN 12/31/17 Silver Sulfadiazine 1% Top Cr 1 tube TP QID 12/31/17 [Silvadene -] Sucralfate [Carafate] 10 ml PO BID 12/31/17 Metoprolol Tartrate [Lopressor -] 25 mg PO BID #60 tablet 01/03/18 Loperamide HCl [Loperamide] 2 mg PO Q6H PRN #10 tablet 01/05/18 Megestrol Acetate Oral Susp 400 mg PO DAILY 30 Days #1 cup 01/05/18 [Megace Oral Suspension -] Urine Test Results Urine Color Yellow 02/16/18 16:40 Urine Appearance Clear 02/16/18 16:40 Urine pH 6.0 (5.0-8.0) 02/16/18 16:40 Ur Specific Given 1.011 (1.001-1.035) 02/16/18 16:40 Urine Protein 1+ (NEGATIVE) H 02/16/18 16:40 Urine Glucose (UA) Negative (NEGATIVE) 02/16/18 16:40 Urine Ketones Trace (NEGATIVE) H 02/16/18 16:40 Urine Blood 1+ (NEGATIVE) H 02/16/18 16:40 Urine Nitrite Negative (NEGATIVE) 02/16/18 16:40 Urine Bilirubin Negative (<2.0 mg/dL) 02/16/18 16:40 Ur Leukocyte Esterase 2+ (NEGATIVE) H 02/16/18 16:40 Ur Epithelial Cells Rare /HPF (FEW) 02/16/18 16:40 Urine Bacteria Rare /hpf (NONE SEEN) 02/16/18 16:40 Urine Mucus Few 02/16/18 16:40 PE: frail lady Chest: decreased BS bl Cvs : S1S2 positive, mild tachy CXR: positive for congestive changes. ASSESSMENT AND PLAN: Patient is a 82 y/o female with a history of anal cancer ( chem/RTx), HTN, and Anxiety who is admitted for intractable nausea and vomiting and UTI overnight. # Acute exacerbation of diastolic CHF On Lasix 20mg IV bid continue , cardio consult appreciated and discussed with , 2l NC keep sat>93% Echo 12/2017 EF 60-65% with no wall abnormalities, Magana catheter now. # Intractable nausea and vomiting is stable now. #UTI on IV ROcephin continue #afib wit rate controlled continue metoprolol 25 mg BID # Hypomag/hypokalemia will replete with potassium and magnesium given 1gm mag IV #DVT ppx: Lovenox
[2018-02-18] MEDS ORDERED: cefTRIAXone SODIUM 1 GM VIAL ONE (09:58)
[2018-02-18] MEDS ORDERED: DEXTROSE 5%-WATER - 50 ML IVPB ONE (09:58)
[2018-02-18] MEDS ORDERED: PT OWN MED DRAWER 7, Y5N ONE (09:59)
[2018-02-18] MEDS: SUCRALFATE 1 GM/10 ML UNIT DOSE CUPS PO SCH ×2 (10:02→21:52)
[2018-02-18] MEDS: ENOXAPARIN NA (PORCINE) 40 MG/0.4 ML DISP.SYRIN SQ SCH (10:02)
[2018-02-18] MEDS: ALPRAZolam 0.25 MG TABLET PO SCH ×2 (10:02→21:52)
[2018-02-18] MEDS: METOPROLOL TARTRATE 25 MG TABLET (FP) PO SCH ×3 (10:02→23:06)
[2018-02-18] MEDS: CEFTRIAXONE 1 GM in DEXTROSE 5%-WATER - 50 ML IVPB SCH (10:03)
[2018-02-18] MEDS ORDERED: PORTA CATH FLUSH 10 ML IVPUSH PRN (10:38)
[2018-02-18 10:50] LABS: ANION GAP 10 (8-16); BLOOD UREA NITROGEN 13 mg/dL (7-18); CALCIUM 8.1 mg/dL (8.5-10.1); CHLORIDE 99 mmol/L (98-107); CO2 28 mmol/L (21-32); CREATININE 0.9 mg/dL (0.55-1.02); GLUCOSE,RANDOM 145 mg/dL (74-106); MAGNESIUM 1.7 mg/dL (1.8-2.4); POTASSIUM 3.1 mmol/L (3.5-5.1); SODIUM 137 mmol/L (136-145)
--- NOTE | 2018-02-18 13:12 | EKG ---
Test Reason : Blood Pressure : / mmHG Vent. Rate : 094 BPM Atrial Rate : 267 BPM P-R Int : 000 ms QRS Dur : 072 ms QT Int : 372 ms P-R-T Axes : 000 006 005 degrees QTc Int : 465 ms ATRIAL FIBRILLATION ABNORMAL ECG Confirmed by Adi Britt MD ([id number]) on 02/18/2018 1:11:45 PM Referred By: Confirmed By:Adi Britt MD
[2018-02-18] MEDS: MEGESTROL ACETATE 400 MG/10 ML UNIT DOSE CUP PO SCH (13:29)
[2018-02-18 16:03] VITALS: BMI 22.9
--- NOTE | 2018-02-18 16:43 | PN ---
Physical Exam: SUBJECTIVE: Patient is a 82 y/o female with a history of anal cancer ( on chem/radiation), HTN, and Anxiety who is admitted for UTI. Patient had trouble breathing last night. She was given lasix and her breathing significantly improved. Patient had a iniguez placed becuause she was getting up to urinate frequently and there is a risk of fall. She has no complaints today. OBJECTIVE: Vital Signs Temperature 98.3 F 02/18/18 14:25 Pulse Rate 99 H 02/18/18 14:25 Respiratory Rate 18 02/18/18 14:25 Blood Pressure 91/44 02/18/18 14:25 O2 Sat by Pulse Oximetry (%) 94 L 02/18/18 09:00 GENERAL: The patient is awake, alert, and fully oriented, in no acute distress. LUNGS: Breath sounds equal, clear to auscultation bilaterally HEART: irregularly irregular ABDOMEN: Soft, nontender, nondistended, normoactive bowel sounds EXTREMITIES: 2+ pulses, warm, well-perfused, no edema. PSYCH: Normal mood, normal affect. SKIN: Warm, dry, normal turgor, no rashes or lesions noted CBC, BMP 02/18/18 06:00 02/18/18 09:45 Active Medications Alprazolam (Xanax -) 0.25 mg PO BID [facility] Last Admin: 02/18/18 10:02 Dose: 0.25 mg Enoxaparin Sodium (Lovenox -) 40 mg SQ DAILY [facility] Last Admin: 02/18/18 10:02 Dose: 40 mg Furosemide (Lasix Injection -) 20 mg IVPUSH BID@0600,1400 [facility] Last Admin: 02/18/18 13:26 Dose: 20 mg IV Flush (Noble-Cath Flush) 10 ml IVPUSH PRN PRN PRN Reason: FLUSH Ceftriaxone Sodium 1 gm/ (Dextrose) 50 mls @ 100 mls/hr IVPB DAILY [facility] Last Admin: 02/18/18 10:03 Dose: 100 mls/hr Loperamide HCl (Imodium -) 2 mg PO Q6H PRN PRN Reason: DIARRHEA Megestrol Acetate (Megace Oral Suspension -) 400 mg PO DAILY [facility] Last Admin: 02/18/18 13:29 Dose: 400 mg Metoprolol Tartrate (Lopressor -) 25 mg PO BID [facility] Last Admin: 02/18/18 10:02 Dose: 25 mg Nystatin (Nystatin Oral Suspension -) 500,000 units PO Q6HPO [facility] Last Admin: 02/18/18 13:26 Dose: 500,000 units Ondansetron HCl (Zofran Odt -) 8 mg SL Q8H PRN PRN Reason: NAUSEA AND/OR VOMITING Potassium Chloride (K-Dur -) 20 meq PO BID [facility] Sucralfate (Carafate Oral Suspension -) 1 gm PO BID [facility] Last Admin: 02/18/18 10:02 Dose: 1 gm ASSESSMENT/PLAN: Patient is a 82 y/o female with a history of anal cancer ( on chem/radiation), HTN, and Anxiety who is admitted for UTI. #UTI - UA: WBC 30, LE 2+ - urine cx pending - Ceftriaxone 1gm daily (day 2) - denies symptoms #fluid overload - CXR: interstitial markings, repeat cxr no acute changes - Echo 12/2017 EF 60-65% with no wall abnormalities - f/u daily weights, Input and output - lasix 20 IV push @ 6 and 2 #afib - metoprolol 25 mg BID - not on anticoagulation - f/u Dr. Hernandez #DVT ppx - Lovenox 40 mg sq daily #anal cancer - s/p RT and 5FU and Mitomycin #anxiety - xanax .25 mg FEN: - K-dur 20 mg BID - regular diet Dispo: likely tomorrow, follow up UTI cx Visit type - Emergency Visit Emergency Visit: No - New Patient This patient is new to me today: No - Critical Care Critical Care patient: No
--- NOTE | 2018-02-18 19:26 | PN ---
Progress Note (short form) - Note Progress Note: Patient seen and examine d Poor p.o.intake Was not OOB today Magana catheter draining Last Vital Signs Temp Pulse Resp BP Pulse Ox 98.0 F 104 H 18 104/50 94 L 02/18/18 18:13 02/18/18 18:13 02/18/18 18:13 02/18/18 18:13 02/18/18 09:00 HEENT: LAISHA, EOM Intact Oropharynx: No thrush, No mucositis Cor: tachycardia , irregular Lungs: scattered rhonchi, wheezes Abd: Soft, Normal bowel sounds, No organomegaly Ext:No significant edema Skin: No rashes, Integument intact CBC, BMP 02/18/18 06:00 02/18/18 09:45 Current Medications Generic Name Dose Route Start Last Admin Trade Name Freq PRN Reason Stop Dose Admin Alprazolam 0.25 mg 02/17/18 10:00 02/18/18 10:02 Xanax - PO 0.25 mg BID JAKUB Administration Enoxaparin Sodium 40 mg 02/17/18 10:00 02/18/18 10:02 Lovenox - SQ 40 mg DAILY JAKUB Administration Furosemide 20 mg 02/18/18 06:00 02/18/18 13:26 Lasix Injection - IVPUSH 20 mg BID@0600,1400 JAKUB Administration IV Flush 10 ml 02/18/18 10:38 Noble-Cath Flush IVPUSH PRN PRN FLUSH Ceftriaxone Sodium 1 gm/ 50 mls @ 100 mls/hr 02/17/18 10:00 02/18/18 10:03 Dextrose IVPB 100 mls/hr DAILY JAKUB Administration Loperamide HCl 2 mg 02/16/18 22:45 Imodium - PO Q6H PRN DIARRHEA Megestrol Acetate 400 mg 02/17/18 10:00 02/18/18 13:29 Megace Oral Suspension - PO 400 mg DAILY JAKUB Administration Metoprolol Tartrate 25 mg 02/17/18 10:00 02/18/18 10:02 Lopressor - PO 25 mg BID JAKUB Administration Nystatin 500,000 units 02/16/18 23:00 02/18/18 18:49 Nystatin Oral Suspension - PO 500,000 units Q6HPO JAKUB Administration Ondansetron HCl 8 mg 02/16/18 22:45 Zofran Odt - SL Q8H PRN NAUSEA AND/OR VOMITING Potassium Chloride 20 meq 02/18/18 22:00 K-Dur - PO BID JAKUB Sucralfate 1 gm 02/17/18 10:00 02/18/18 10:02 Carafate Oral Suspension - PO 1 gm BID JAKUB Administration Anal ca- UTI Fluid overload Tachycardia Plan Continue antibiotics clinical services specialist lytes /weight. Problem List - Problems (1) Acute diastolic CHF (congestive heart failure) Code(s): I50.31 - ACUTE DIASTOLIC (CONGESTIVE) HEART FAILURE (2) Chest discomfort Code(s): R07.89 - OTHER CHEST PAIN (3) UTI (urinary tract infection) Code(s): N39.0 - URINARY TRACT INFECTION, SITE NOT SPECIFIED Qualifiers: Urinary tract infection type: site unspecified Hematuria presence: without hematuria Qualified Code(s): N39.0 - Urinary tract infection, site not specified (4) Anal cancer Code(s): C21.0 - MALIGNANT NEOPLASM OF ANUS, UNSPECIFIED (5) Atrial fibrillation Code(s): I48.91 - UNSPECIFIED ATRIAL FIBRILLATION Qualifiers: Atrial fibrillation type: unspecified Qualified Code(s): I48.91 - Unspecified atrial fibrillation (6) Thrombocytopenia Code(s): D69.6 - THROMBOCYTOPENIA, UNSPECIFIED
[2018-02-18] MEDS ORDERED: POTASSIUM CHLORIDE TABS 20 MEQ TABLET.ER (FP) PO SCH (22:00)
[2018-02-18] MEDS: POTASSIUM CHLORIDE ORAL LIQUID 20 MEQ/15 ML PO SCH ×2 (23:04)
[2018-02-18] MEDS: ONDANSETRON *ODT* 4 MG TABLET SL PRN (23:11)
[2018-02-19] MEDS: FUROSEMIDE 40 MG/4 ML INJECTABLE VIAL IVPUSH SCH ×2 (06:00→14:42)
[2018-02-19] MEDS: NYSTATIN 500,000 UNITS/5 ML SUSPENSION PO SCH ×3 (06:13→17:13)
[2018-02-19 07:25] LABS: HEMATOCRIT 34.6 % (32.4-45.2); HEMOGLOBIN 11.6 GM/dL (10.7-15.3); MCH 35.4 pg (25.7-33.7); MCHC 33.7 g/dl (32.0-36.0); MEAN PLT VOLUME 9.9 fl (7.5-11.1); PLATELET COUNT 187 K/MM3 (134-434); RBC 3.29 M/mm3 (3.60-5.2); RDW 18.8 % (11.6-15.6); WHITE BLOOD COUNT 5.4 K/mm3 (4.0-10.0)
[2018-02-19 08:03] LABS: ANION GAP 12 MMOL/L (8-16); BLOOD UREA NITROGEN 20 mg/dL (7-18); CALCIUM 8.2 mg/dL (8.5-10.1); CHLORIDE 101 mmol/L (98-107); CO2 28 mmol/L (21-32); CREATININE 0.8 mg/dL (0.55-1.02); GLUCOSE,RANDOM 91 mg/dL (74-106); POTASSIUM 3.3 mmol/L (3.5-5.1); SODIUM 141 mmol/L (136-145)
[2018-02-19] MEDS ORDERED: cefTRIAXone SODIUM 1 GM VIAL ONE (10:33)
[2018-02-19] MEDS ORDERED: DEXTROSE 5%-WATER - 50 ML IVPB ONE (10:33)
[2018-02-19] MEDS: SUCRALFATE 1 GM/10 ML UNIT DOSE CUPS PO SCH ×2 (10:36→21:56)
[2018-02-19] MEDS: POTASSIUM CHLORIDE ORAL LIQUID 20 MEQ/15 ML PO SCH ×2 (10:36→21:56)
[2018-02-19] MEDS: CEFTRIAXONE 1 GM in DEXTROSE 5%-WATER - 50 ML IVPB SCH (10:36)
[2018-02-19] MEDS: METOPROLOL TARTRATE 25 MG TABLET (FP) PO SCH ×2 (10:37→21:55)
[2018-02-19] MEDS: ALPRAZolam 0.25 MG TABLET PO SCH ×2 (10:37→21:56)
[2018-02-19] MEDS: ENOXAPARIN NA (PORCINE) 40 MG/0.4 ML DISP.SYRIN SQ SCH (10:38)
[2018-02-19 11:51] LABS: MAGNESIUM 1.9 mg/dL (1.8-2.4); PHOSPHOROUS 3.8 mg/dL (2.5-4.9)
--- NOTE | 2018-02-19 14:29 | PN ---
Physical Exam: SUBJECTIVE: Patient is a 82 y/o female with a history of anal cancer ( on chem/radiation), HTN, and Anxiety who is admitted for UTI. Patient has no trouble breathing today. She had an episode of diarrhea but has no other complaints. No acute events overnight. OBJECTIVE: Vital Signs Temperature 97.8 F 02/19/18 09:44 Pulse Rate 110 H 02/19/18 09:44 Respiratory Rate 18 02/19/18 09:44 Blood Pressure 104/60 02/19/18 09:44 O2 Sat by Pulse Oximetry (%) 97 02/19/18 09:00 GENERAL: The patient is awake, alert, and fully oriented, in no acute distress. LUNGS: Breath sounds equal, clear to auscultation bilaterally HEART: irregularly irregular ABDOMEN: Soft, nontender, nondistended, normoactive bowel sounds EXTREMITIES: 2+ pulses, warm, well-perfused, no edema. PSYCH: Normal mood, normal affect. SKIN: Warm, dry, normal turgor, no rashes or lesions noted CBC, BMP 02/19/18 06:00 02/19/18 06:00 Active Medications Alprazolam (Xanax -) 0.25 mg PO BID [facility] Last Admin: 02/19/18 10:37 Dose: 0.25 mg Enoxaparin Sodium (Lovenox -) 40 mg SQ DAILY [facility] Last Admin: 02/19/18 10:38 Dose: 40 mg Furosemide (Lasix Injection -) 20 mg IVPUSH BID@0600,1400 [facility] Last Admin: 02/19/18 06:00 Dose: Not Given IV Flush (Noble-Cath Flush) 10 ml IVPUSH PRN PRN PRN Reason: FLUSH Ceftriaxone Sodium 1 gm/ (Dextrose) 50 mls @ 100 mls/hr IVPB DAILY [facility] Last Admin: 02/19/18 10:36 Dose: 100 mls/hr Loperamide HCl (Imodium -) 2 mg PO Q6H PRN PRN Reason: DIARRHEA Megestrol Acetate (Megace Oral Suspension -) 400 mg PO DAILY [facility] Last Admin: 02/18/18 13:29 Dose: 400 mg Metoprolol Tartrate (Lopressor -) 25 mg PO BID [facility] Last Admin: 02/19/18 10:37 Dose: 25 mg Nystatin (Nystatin Oral Suspension -) 500,000 units PO Q6HPO [facility] Last Admin: 02/19/18 11:33 Dose: 500,000 units Ondansetron HCl (Zofran Odt -) 8 mg SL Q8H PRN PRN Reason: NAUSEA AND/OR VOMITING Last Admin: 02/18/18 23:11 Dose: 8 mg Potassium Chloride (Potassium Chloride Oral Liquid) 20 meq PO BID [facility] Last Admin: 02/19/18 10:36 Dose: 20 meq Sucralfate (Carafate Oral Suspension -) 1 gm PO BID [facility] Last Admin: 02/19/18 10:36 Dose: 1 gm ASSESSMENT/PLAN: Patient is a 82 y/o female with a history of anal cancer ( on chem/radiation), HTN, and Anxiety who is admitted for UTI. #fluid overload - CXR: interstitial markings, repeat cxr no acute changes - Echo 12/2017 EF 60-65% with no wall abnormalities - f/u daily weights, Input and output - lasix 20 IV push @ 6 and 2 - f/u CXR - f/u pre and post #UTI: resolved - urine cx negative - Ceftriaxone 1gm daily (day 2), stopped - denies symptoms #afib - metoprolol 25 mg BID - not on anticoagulation - f/u Dr. Hernandez #DVT ppx - Lovenox 40 mg sq daily #anal cancer - s/p RT and 5FU and Mitomycin #anxiety - xanax .25 mg FEN: - K-dur 20 mg BID - regular diet Dispo: likely tomorrow, follow up UTI cx Visit type - Emergency Visit Emergency Visit: No - New Patient This patient is new to me today: No - Critical Care Critical Care patient: No
[2018-02-19] MEDS: MEGESTROL ACETATE 400 MG/10 ML UNIT DOSE CUP PO SCH (17:22)
--- NOTE | 2018-02-19 18:45 | PN ---
Teaching Attending Note Name of Resident: Carolyn Dye ATTENDING PHYSICIAN STATEMENT I saw and evaluated the patient. I reviewed the resident's note and discussed the case with the resident. I agree with the resident's findings and plan as documented. SUBJECTIVE: No fever or chills . Noabd pain, occasional non productive cough . No SOB. per RN desats to 70s when she walks OBJECTIVE: NAd CV: RRR Lungs: CTAB Abd: Sfoty, NT, ND , NL BS Ext : 1+ edema A/P : 82 y/o lady with h/o anal cancer ( chem/RTx), HTN, and Anxiety who presented with N/V and then developed acute CHF exacerbation 1- N/V : resolved 2- Acute diastolic CHF exacerbation: improved but still hypoxic - cont lasix IV BID - echo reviewed - repeat Cxray in am 3- Pyuria : no dysuria , neg urine cx . dc Abx . received 3 days already 4- H/o A fib : cont metoprolol . Not on Ac at home 5- will assess tomorrow lives at home with family . did well with PT
--- NOTE | 2018-02-19 20:08 | PN ---
Progress Note (short form) - Note Progress Note: Patient seen and examined Ambulating in [place] with assistance No further nausea, emesis, diarrhea UTI improved Last Vital Signs Temp Pulse Resp BP Pulse Ox 97.4 F L 96 H 20 111/72 85 L 02/19/18 18:29 02/19/18 18:50 02/19/18 18:29 02/19/18 18:29 02/19/18 18:50 HEENT: LAISHA, EOM Intact Cor: Atrial fib Lungs:rales bilaterally Abd: Soft, Normal bowel sounds, No organomegaly Ext:No significant edema Skin: No rashes, Integument intact CBC, BMP 02/19/18 06:00 02/19/18 06:00 Microbiology 02/17/18 18:00 Urine - Urine Clean Catch Urine Culture - Final NO GROWTH OBTAINED 02/16/18 20:40 Blood - Peripheral Venous Blood Culture - Preliminary NO GROWTH OBTAINED AFTER 48 HOURS, INCUBATION TO CONTINUE FOR 3 DAYS. 02/16/18 20:40 Blood - Peripheral Venous Blood Culture - Preliminary NO GROWTH OBTAINED AFTER 48 HOURS, INCUBATION TO CONTINUE FOR 3 DAYS. Current Medications Generic Name Dose Route Start Last Admin Trade Name Freq PRN Reason Stop Dose Admin Alprazolam 0.25 mg 02/17/18 10:00 02/19/18 10:37 Xanax - PO 0.25 mg BID JAKUB Administration Enoxaparin Sodium 40 mg 02/17/18 10:00 02/19/18 10:38 Lovenox - SQ 40 mg DAILY JAKUB Administration Furosemide 20 mg 02/18/18 06:00 02/19/18 14:42 Lasix Injection - IVPUSH 20 mg BID@0600,1400 JAKUB Administration IV Flush 10 ml 02/18/18 10:38 Noble-Cath Flush IVPUSH PRN PRN FLUSH Loperamide HCl 2 mg 02/16/18 22:45 Imodium - PO Q6H PRN DIARRHEA Megestrol Acetate 400 mg 02/17/18 10:00 02/19/18 17:22 Megace Oral Suspension - PO 400 mg DAILY JAKUB Administration Metoprolol Tartrate 37.5 mg 02/19/18 22:00 Lopressor - PO BID JAKUB Nystatin 500,000 units 02/16/18 23:00 02/19/18 17:13 Nystatin Oral Suspension - PO 500,000 units Q6HPO JAKUB Administration Ondansetron HCl 8 mg 02/16/18 22:45 02/18/18 23:11 Zofran Odt - SL 8 mg Q8H PRN Administration NAUSEA AND/OR VOMITING Potassium Chloride 20 meq 02/18/18 22:45 02/19/18 10:36 Potassium Chloride Oral Liquid PO 20 meq BID JAKUB Administration Sucralfate 1 gm 02/17/18 10:00 02/19/18 10:36 Carafate Oral Suspension - PO 1 gm BID JAKUB Administration Impression: Clinical improvement Remains SOB on exertion UTI- improved GI symptoms - improved Intake -somewhat better Continued therapy for diastolic CHF ? a/c upon discharge per cardiology Continue nutrition encouragement /megace. Continued ambulation Problem List - Problems (1) UTI (urinary tract infection) Code(s): N39.0 - URINARY TRACT INFECTION, SITE NOT SPECIFIED Qualifiers: Urinary tract infection type: site unspecified Hematuria presence: without hematuria Qualified Code(s): N39.0 - Urinary tract infection, site not specified (2) Anal cancer Code(s): C21.0 - MALIGNANT NEOPLASM OF ANUS, UNSPECIFIED (3) Atrial fibrillation Code(s): I48.91 - UNSPECIFIED ATRIAL FIBRILLATION Qualifiers: Atrial fibrillation type: unspecified Qualified Code(s): I48.91 - Unspecified atrial fibrillation
[2018-02-19] MEDS: ONDANSETRON *ODT* 4 MG TABLET SL PRN (21:58)
[2018-02-20] MEDS: NYSTATIN 500,000 UNITS/5 ML SUSPENSION PO SCH ×4 (01:37→17:26)
[2018-02-20] MEDS: FUROSEMIDE 40 MG/4 ML INJECTABLE VIAL IVPUSH SCH (05:52)
[2018-02-20 07:55] LABS: ANION GAP 11 MMOL/L (8-16); BLOOD UREA NITROGEN 26 mg/dL (7-18); CALCIUM 8.6 mg/dL (8.5-10.1); CHLORIDE 99 mmol/L (98-107); CO2 28 mmol/L (21-32); CREATININE 0.9 mg/dL (0.55-1.02); GLUCOSE,RANDOM 87 mg/dL (74-106); POTASSIUM 3.5 mmol/L (3.5-5.1); SODIUM 138 mmol/L (136-145)
[2018-02-20] MEDS ORDERED: PT OWN MED DRAWER 7, Y5N ONE ×3 (09:17→21:09)
[2018-02-20] MEDS: ALPRAZolam 0.25 MG TABLET PO SCH ×2 (09:21→21:51)
[2018-02-20] MEDS: ONDANSETRON *ODT* 4 MG TABLET SL PRN (09:21)
[2018-02-20] MEDS: SUCRALFATE 1 GM/10 ML UNIT DOSE CUPS PO SCH ×2 (09:22→21:51)
[2018-02-20] MEDS: MEGESTROL ACETATE 400 MG/10 ML UNIT DOSE CUP PO SCH (09:23)
[2018-02-20] MEDS: ENOXAPARIN NA (PORCINE) 40 MG/0.4 ML DISP.SYRIN SQ SCH (09:23)
[2018-02-20] MEDS: METOPROLOL TARTRATE 25 MG TABLET (FP) PO SCH (09:23)
[2018-02-20] MEDS: POTASSIUM CHLORIDE ORAL LIQUID 20 MEQ/15 ML PO SCH ×2 (09:27→21:51)
[2018-02-20] MEDS ORDERED: METOPROLOL TARTRATE 25 MG TABLET (FP) PO SCH (09:27)
--- NOTE | 2018-02-20 09:45 | PN ---
Physical Exam: SUBJECTIVE: Patient is a 82 y/o female with a history of anal cancer ( on chem/radiation), HTN, and Anxiety who is admitted for UTI. Patient has no complaints and has not had any more episodes of diarrhea. No acute events overnight. OBJECTIVE: Vital Signs Temperature 98.1 F 02/20/18 05:44 Pulse Rate 96 H 02/20/18 05:44 Respiratory Rate 18 02/20/18 05:44 Blood Pressure 93/53 02/20/18 05:44 O2 Sat by Pulse Oximetry (%) 92 L 02/19/18 21:00 GENERAL: The patient is awake, alert, and fully oriented, in no acute distress. HEAD: Normal with no signs of trauma. EYES: PERRL, extraocular movements intact, sclera anicteric, conjunctiva clear. No ptosis. ENT: Ears normal, nares patent, oropharynx clear without exudates, moist mucous membranes. NECK: Trachea midline, full range of motion, supple. LUNGS: Breath sounds equal, clear to auscultation bilaterally, no wheezes, no crackles, no accessory muscle use. HEART: Regular rate and rhythm, S1, S2 without murmur, rub or gallop. ABDOMEN: Soft, nontender, nondistended, normoactive bowel sounds, no guarding, no rebound, no hepatosplenomegaly, no masses. EXTREMITIES: 2+ pulses, warm, well-perfused, no edema. NEUROLOGICAL: Cranial nerves II through XII grossly intact. Normal speech, gait not observed. PSYCH: Normal mood, normal affect. SKIN: Warm, dry, normal turgor, no rashes or lesions noted CBC, BMP 02/19/18 06:00 02/20/18 06:00 Active Medications Alprazolam (Xanax -) 0.25 mg PO BID [facility] Last Admin: 02/20/18 09:21 Dose: 0.25 mg Enoxaparin Sodium (Lovenox -) 40 mg SQ DAILY [facility] Last Admin: 02/20/18 09:23 Dose: 40 mg Furosemide (Lasix Injection -) 20 mg IVPUSH BID@0600,1400 [facility] Last Admin: 02/20/18 05:52 Dose: Not Given IV Flush (Noble-Cath Flush) 10 ml IVPUSH PRN PRN PRN Reason: FLUSH Loperamide HCl (Imodium -) 2 mg PO Q6H PRN PRN Reason: DIARRHEA Megestrol Acetate (Megace Oral Suspension -) 400 mg PO DAILY [facility] Last Admin: 02/20/18 09:23 Dose: 400 mg Metoprolol Tartrate (Lopressor -) 25 mg PO BID [facility] Nystatin (Nystatin Oral Suspension -) 500,000 units PO Q6HPO [facility] Last Admin: 02/20/18 05:54 Dose: 500,000 units Ondansetron HCl (Zofran Odt -) 8 mg SL Q8H PRN PRN Reason: NAUSEA AND/OR VOMITING Last Admin: 02/20/18 09:21 Dose: 8 mg Potassium Chloride (Potassium Chloride Oral Liquid) 20 meq PO BID [facility] Last Admin: 02/20/18 09:27 Dose: 20 meq Sucralfate (Carafate Oral Suspension -) 1 gm PO BID [facility] Last Admin: 02/20/18 09:22 Dose: 1 gm ASSESSMENT/PLAN: Patient is a 82 y/o female with a history of anal cancer ( on chem/radiation), HTN, and Anxiety who is admitted for UTI. #acute diastolic CHF exacerbation - CXR: interstitial markings, repeat cxr no acute changes - Echo 12/2017 EF 60-65% with no wall abnormalities - f/u daily weights, Input and output - f/u CXR - f/u pre and post - lasix held today for low BP, BB discontinued, lasix for tomorrow morning ( 40 mg) #UTI: resolved - urine cx negative - Ceftriaxone 1gm daily (day 2), stopped - denies symptoms #afib - metoprolol 25 mg BID - patient started on Eliquis 2.5 mg BID - spoke with patient at length about risks an benifits of anticoagulation. Discussed patient had a CHADSVASC score of 5 and therefore is at a higher risk of stroke, but that falls can lead to risk of bleeding. Patient states she understands and she feels she is steady on her feet. She lives in a 1 story house with no steps, uses a cane to steady her balance and is carful with walking. patient would like to be on the anticoagulation medication. #DVT ppx - Lovenox 40 mg sq daily #anal cancer - s/p RT and 5FU and Mitomycin #anxiety - xanax .25 mg FEN: - K-dur 20 mg BID - regular diet Dispo: f/u pre and post PT after patient receives morning lasix Visit type - Emergency Visit Emergency Visit: No - New Patient This patient is new to me today: No - Critical Care Critical Care patient: No
--- NOTE | 2018-02-20 15:56 | EKG ---
Test Reason : Blood Pressure : / mmHG Vent. Rate : 114 BPM Atrial Rate : 416 BPM P-R Int : 000 ms QRS Dur : 068 ms QT Int : 308 ms P-R-T Axes : 000 001 -49 degrees QTc Int : 424 ms ATRIAL FIBRILLATION WITH RAPID VENTRICULAR RESPONSE WITH PREMATURE VENTRICULAR OR ABERRANTLY CONDUCTED COMPLEXES NONSPECIFIC ST AND T WAVE ABNORMALITY ABNORMAL ECG WHEN COMPARED WITH ECG OF 17-FEB-2018 23:52, NONSPECIFIC T WAVE ABNORMALITY NOW EVIDENT IN LATERAL LEADS Confirmed by Jojo Gomes ([id number]) on 02/20/2018 3:55:47 PM Referred By: Confirmed By:Jojo Gomes
--- NOTE | 2018-02-20 15:56 | PN ---
Teaching Attending Note Name of Resident: Carolyn Dye ATTENDING PHYSICIAN STATEMENT I saw and evaluated the patient. I reviewed the resident's note and discussed the case with the resident. I agree with the resident's findings and plan as documented. SUBJECTIVE: No fever or chills. SOB is better . no cough . feels weak OBJECTIVE: NAd CV: RRR Lungs: CTAB Abd: Soft, NT, ND , NL BS Ext: No edema A/P : 82 y/o lady with h/o anal cancer ( chem/RTx), HTN, and Anxiety who presented with N/V and then developed acute CHF exacerbation 1- N/V : resolved 2- Acute diastolic CHF exacerbation: improved. Sat O2 95 on RA but requires oxygen with ambulation - cxray reviewed, slight improvement compared to a couple days ago - will give IV lasix today and probably switch to po tomorrow - will probably need O2 with ambulation temporarily - will repeat pre-Post ambulatory pulse ox tomorrow 3- Pyuria : no dysuria , neg urine cx .s/p Abx x 3 days . 4- H/o A fib : cont metoprolol . Not on Ac at home , will confirm with Dr. Botello 5- possibly dc tomorrow to home with VNS and possible O2. case consultant notified
[2018-02-20] MEDS: APIXABAN 2.5 MG TABLET PO SCH (21:51)
[2018-02-21] MEDS: NYSTATIN 500,000 UNITS/5 ML SUSPENSION PO SCH ×4 (01:12→17:25)
[2018-02-21 07:05] LABS: HEMATOCRIT 31.8 % (32.4-45.2); HEMOGLOBIN 10.7 GM/dL (10.7-15.3); MCH 35.5 pg (25.7-33.7); MCHC 33.6 g/dl (32.0-36.0); MEAN CELL VOLUME 105.9 fl (80-96); MEAN PLT VOLUME 9.7 fl (7.5-11.1); PLATELET COUNT 174 K/MM3 (134-434); RDW 18.4 % (11.6-15.6); WHITE BLOOD COUNT 4.3 K/mm3 (4.0-10.0)
[2018-02-21 07:30] LABS: ANION GAP 7 MMOL/L (8-16); BLOOD UREA NITROGEN 24 mg/dL (7-18); CALCIUM 8.4 mg/dL (8.5-10.1); CHLORIDE 103 mmol/L (98-107); CO2 29 mmol/L (21-32); CREATININE 0.8 mg/dL (0.55-1.02); GLUCOSE,RANDOM 85 mg/dL (74-106); POTASSIUM 4.1 mmol/L (3.5-5.1); SODIUM 139 mmol/L (136-145)
[2018-02-21] MEDS ORDERED: FUROSEMIDE 40 MG/4 ML INJECTABLE VIAL IVPUSH ONE (08:09)
[2018-02-21] MEDS: POTASSIUM CHLORIDE ORAL LIQUID 20 MEQ/15 ML PO SCH ×2 (09:31→23:16)
[2018-02-21] MEDS: SUCRALFATE 1 GM/10 ML UNIT DOSE CUPS PO SCH ×2 (09:31→23:16)
[2018-02-21] MEDS: METOPROLOL TARTRATE 25 MG TABLET (FP) PO SCH ×2 (09:32→23:17)
[2018-02-21] MEDS: ALPRAZolam 0.25 MG TABLET PO SCH ×2 (09:32→23:17)
[2018-02-21] MEDS ORDERED: PT OWN MED DRAWER 7, Y5N ONE ×3 (09:34→19:22)
[2018-02-21] MEDS: APIXABAN 2.5 MG TABLET PO SCH ×2 (09:35→23:17)
[2018-02-21] MEDS: MEGESTROL ACETATE 400 MG/10 ML UNIT DOSE CUP PO SCH (09:48)
[2018-02-21] MEDS ORDERED: FUROSEMIDE 20 MG TABLET (FP) PO SCH (10:00)
--- NOTE | 2018-02-21 13:26 | PN ---
Physical Exam: SUBJECTIVE: Patient is a 82 y/o female with a history of anal cancer ( on chem/radiation), HTN, and Anxiety who is admitted for UTI. Patient has no complaints and has not had any more episodes of diarrhea. No acute events overnight. OBJECTIVE: Vital Signs Temperature 98.6 F 02/21/18 09:49 Pulse Rate 116 H 02/21/18 09:49 Respiratory Rate 20 02/21/18 09:49 Blood Pressure 109/56 02/21/18 09:49 O2 Sat by Pulse Oximetry (%) 98 02/21/18 09:00 GENERAL: The patient is awake, alert, and fully oriented, in no acute distress. LUNGS: Breath sounds equal, clear to auscultation bilaterally HEART: irregularly irregular ABDOMEN: Soft, nontender, nondistended, normoactive bowel sounds EXTREMITIES: 2+ pulses, warm, well-perfused, no edema. PSYCH: Normal mood, normal affect. SKIN: Warm, dry, normal turgor, no rashes or lesions noted CBC, BMP 02/21/18 06:00 02/21/18 06:00 Active Medications Alprazolam (Xanax -) 0.25 mg PO BID [facility] Last Admin: 02/21/18 09:32 Dose: 0.25 mg Apixaban (Eliquis -) 2.5 mg PO BID [facility] Last Admin: 02/21/18 09:35 Dose: 2.5 mg IV Flush (Noble-Cath Flush) 10 ml IVPUSH PRN PRN PRN Reason: FLUSH Loperamide HCl (Imodium -) 2 mg PO Q6H PRN PRN Reason: DIARRHEA Megestrol Acetate (Megace Oral Suspension -) 400 mg PO DAILY [facility] Last Admin: 02/21/18 09:48 Dose: 400 mg Metoprolol Tartrate (Lopressor -) 25 mg PO BID [facility] Last Admin: 02/21/18 09:32 Dose: 25 mg Nystatin (Nystatin Oral Suspension -) 500,000 units PO Q6HPO [facility] Last Admin: 02/21/18 12:18 Dose: 500,000 units Ondansetron HCl (Zofran Odt -) 8 mg SL Q8H PRN PRN Reason: NAUSEA AND/OR VOMITING Last Admin: 02/20/18 09:21 Dose: 8 mg Potassium Chloride (Potassium Chloride Oral Liquid) 20 meq PO BID [facility] Last Admin: 02/21/18 09:31 Dose: 20 meq Sucralfate (Carafate Oral Suspension -) 1 gm PO BID [facility] Last Admin: 02/21/18 09:31 Dose: 1 gm ASSESSMENT/PLAN: Patient is a 82 y/o female with a history of anal cancer ( on chem/radiation), HTN, and Anxiety who is admitted for UTI. #acute diastolic CHF exacerbation - CXR: interstitial markings, repeat cxr no acute changes - Echo 12/2017 EF 60-65% with no wall abnormalities - f/u daily weights, Input and output - f/u CXR - f/u pre and post - 20mg IV lasix given this morning #UTI: resolved - urine cx negative - denies symptoms #afib - metoprolol 25 mg BID - patient started on Eliquis 2.5 mg BID - spoke with patient at length about risks an benifits of anticoagulation. Discussed patient had a CHADSVASC score of 5 and therefore is at a higher risk of stroke, but that falls can lead to risk of bleeding. Patient states she understands and she feels she is steady on her feet. She lives in a 1 story house with no steps, uses a cane to steady her balance and is carful with walking. patient would like to be on the anticoagulation medication. #DVT ppx - Elliquis #anal cancer - s/p RT and 5FU and Mitomycin #anxiety - xanax .25 mg FEN: - regular diet Dispo: f/u pre and post PT after patient receives morning lasix - patient not able to ambulate without oxygen dropping, patient will need home O2 to ambulate and receive proper oxygenation. Visit type - Emergency Visit Emergency Visit: No - New Patient This patient is new to me today: No - Critical Care Critical Care patient: No
--- NOTE | 2018-02-21 17:34 | PN ---
Teaching Attending Note Name of Resident: Carolyn Dye ATTENDING PHYSICIAN STATEMENT I saw and evaluated the patient. I reviewed the resident's note and discussed the case with the resident. I agree with the resident's findings and plan as documented. SUBJECTIVE: No fever or chills . No abd pain . No Cp. breathing has improved . OBJECTIVE: NAd CV: RRR Lungs: minimal basilar crackles Ext: No edema A/P : 82 y/o lady with h/o anal cancer ( chem/RTx), HTN, and Anxiety who presented with N/V and then developed acute CHF exacerbation 1- N/V : resolved 2- Acute diastolic CHF exacerbation: improved. - needs oxygen at home due to diastolic CHF -IV lasix today . - PO lasix tomorrow 3- Pyuria : no dysuria , neg urine cx .s/p Abx x 3 days . 4- H/o A fib : due to hypotension , lopressor held last night. resume today as BP improved . Hr slightly up today d/w patient the need for AC. CHADSVASC 5. eliquis 2.5 BID started . 5- dispo: pending O2 arrangements
[2018-02-22] MEDS: NYSTATIN 500,000 UNITS/5 ML SUSPENSION PO SCH ×3 (01:26→12:20)
[2018-02-22] MEDS: ONDANSETRON *ODT* 4 MG TABLET SL PRN (07:13)
[2018-02-22] MEDS: APIXABAN 2.5 MG TABLET PO SCH (09:40)
[2018-02-22] MEDS: SUCRALFATE 1 GM/10 ML UNIT DOSE CUPS PO SCH (09:40)
[2018-02-22] MEDS: POTASSIUM CHLORIDE ORAL LIQUID 20 MEQ/15 ML PO SCH (09:40)
[2018-02-22] MEDS: ALPRAZolam 0.25 MG TABLET PO SCH (09:40)
[2018-02-22] MEDS: METOPROLOL TARTRATE 25 MG TABLET (FP) PO SCH ×2 (09:41→09:44)
[2018-02-22] MEDS: MEGESTROL ACETATE 400 MG/10 ML UNIT DOSE CUP PO SCH (09:41)
--- NOTE | 2018-02-22 09:48 | DS ---
Physical Exam: SUBJECTIVE: Patient seen and examined feels better, breathing has improved. nausea is stable, had one episode of nonbloody emesis last night. was able to tolerate breakfast this morning without any vomiting. OBJECTIVE: Vital Signs Period Temp Pulse Resp BP Sys/Rao Pulse Ox Last 24 Hr 97.4 F-98.7 F 88-123 18-20 109-123/51-80 94-94 PHYSICAL EXAM GENERAL: The patient is awake, alert, and fully oriented, in no acute distress. EYES: PERRL, extraocular movements intact, sclera anicteric, conjunctiva clear. ENT: oropharynx clear without exudates, moist mucous membranes. NECK: Trachea midline, full range of motion, supple. LUNGS: Breath sounds equal, clear to auscultation bilaterally, no wheezes, no crackles, no accessory muscle use. CHEST: ace-cath in right of chest HEART: Regular rate and rhythm, S1, S2 without murmur, rub or gallop. ABDOMEN: Soft, nontender, nondistended, normoactive bowel sounds, no guarding, no rebound, no hepatosplenomegaly, no masses. EXTREMITIES: 2+ radial and DP pulses, warm, well-perfused, no edema. NEUROLOGICAL: Cranial nerves II through XII grossly intact. Normal speech. LABS Laboratory Tests 02/16/18 02/16/18 02/16/18 15:40 15:40 15:40 WBC 5.2 Hgb 13.0 Hct Plt Count 197 Sodium 140 Potassium 4.1 BUN 12 Creatinine 0.9 Magnesium 2.0 Total Bilirubin 0.8 AST 20 ALT 12 Alkaline Phosphatase 65 D Creatine Kinase 29 Troponin I < 0.02 B-Natriuretic Peptide Albumin 3.0 L TSH Urine Protein Urine Ketones Urine Blood Urine Nitrite Ur Leukocyte Esterase Urine WBC (Auto) Urine RBC (Auto) 02/16/18 02/16/18 02/17/18 15:40 16:40 06:00 WBC 6.5 Hgb 11.1 Hct 31.5 L D Plt Count 171 Sodium Potassium BUN Creatinine Magnesium Total Bilirubin AST ALT Alkaline Phosphatase Creatine Kinase Troponin I B-Natriuretic Peptide 4077.88 H Albumin TSH Urine Protein 1+ H Urine Ketones Trace H Urine Blood 1+ H Urine Nitrite Negative Ur Leukocyte Esterase 2+ H Urine WBC (Auto) 30 Urine RBC (Auto) 2 02/17/18 02/18/18 02/19/18 06:00 06:00 06:00 WBC 6.8 5.4 Hgb 11.7 11.6 Hct 34.7 34.6 Plt Count 196 187 Sodium Potassium BUN Creatinine Magnesium 1.6 L Total Bilirubin AST ALT Alkaline Phosphatase Creatine Kinase Troponin I B-Natriuretic Peptide Albumin TSH Urine Protein Urine Ketones Urine Blood Urine Nitrite Ur Leukocyte Esterase Urine WBC (Auto) Urine RBC (Auto) 02/19/18 02/19/18 02/19/18 06:00 06:00 09:55 WBC Hgb Hct Plt Count Sodium 141 Potassium 3.3 L BUN 20 H Creatinine 0.8 Magnesium 1.9 Total Bilirubin AST ALT Alkaline Phosphatase Creatine Kinase Troponin I B-Natriuretic Peptide Albumin TSH 3.48 Urine Protein Urine Ketones Urine Blood Urine Nitrite Ur Leukocyte Esterase Urine WBC (Auto) Urine RBC (Auto) 02/21/18 02/21/18 06:00 06:00 WBC 4.3 Hgb 10.7 Hct 31.8 L Plt Count 174 Sodium 139 Potassium 4.1 BUN 24 H Creatinine 0.8 Magnesium Total Bilirubin AST ALT Alkaline Phosphatase Creatine Kinase Troponin I B-Natriuretic Peptide Albumin TSH Urine Protein Urine Ketones Urine Blood Urine Nitrite Ur Leukocyte Esterase Urine WBC (Auto) Urine RBC (Auto) 02/21/2018: carotid u/s: There is minimal partially calcified atheromatous plaque scattered bilaterally. Especially noted at the level of the left carotid bulb There is no evidence of high grade stenosis or occlusion. The vertebral arteries demonstrate normal antegrade flow. The external carotid arteries are patent. The peak systolic velocity of right CCA = 93 cm/sec left CCA = 115 cm/ sec right ICA = 165 cm/sec left ICA = 145 cm/sec right ICA/CCA ratio = 1.8 left ICA/CCA ratio = 1.3 Impression Moderate stenosis right carotid arterial system. Consider follow-up MRA 02/21 abd ultrasound: IMPRESSION: Mild fatty infiltration of the liver versus hepatocellular disease. Please correlate with liver enzymes. Adequately distended gallbladder without evidence of gallstones. Thickening of its wall with minimal pericholecystic free fluid suggestive of acalculous cholecystitis. Mild dilatation of the central intrahepatic bile ducts and dilated dilatation of the common bile duct measuring 11 mm for which further evaluation is needed. Nonvisualization of the pancreas likely due to overlying bowel gas 02/[address] without contrast: IMPRESSION: Mild volume loss and periventricular chronic microvascular ischemic disease changes. No gross acute intracranial pathology is identified. Correlate clinically to determine further evaluation and follow-up. Correlation with MRI would be more sensitive in view of the clinical history 02/[address] without contrast:Impression: Endotracheal tube tip is in satisfactory position. Motion/breathing artifacts are limiting evaluation of the chest wall and lung. No gross acute lung disease is present. No gross enlarged mediastinal or hilar lymph nodes are identified. Small hiatus hernia. In the abdomen and pelvis, there is a punctate nonobstructing right renal upper pole stone. No gross organomegaly, free air or free fluid identified. There is no evidence of small bowel obstruction. Collapsed colon significantly limiting its evaluation. However, thickening of the distal descending and sigmoid colon wall cannot be ruled out and colitis could not be excluded. Correlate clinically. No free air, free fluid, enlarged lymph nodes or a discrete mass lesion are identified in the abdomen pelvis. HOSPITAL COURSE: Date of Admission:02/16/18 - Date of Discharge: 02/22/18 82 year old woman with past medical history of anal cancer (on chemo/radiotx), HTN and Anxiety, presented with weakness, nausea and vomiting, and anorexia found to be fluid overload admitted for treatment of UTI and acute congestive heart failure. She was adequately diuresed with IV lasix 20mg for 7 days and given a prescription for 20mg lasix po for 7 days to continue diuresis as outpatient. Upon pre-post walking test evaluation for the use of supplemental oxygen she required 4L while walking to maintain oxygen saturation >90%. Home oxygen therapy was arranged with visiting nurse services. UTI was treated with 2 days of IV ceftriaxone. She is stable for outpatient follow-up. Labs and imaging from admission are summarized above. Minutes to complete discharge: 45 Discharge Summary Reason For Visit: DEHYDRATION, WEAKNESS, VOMITING Current Active Problems Anal cancer (Chronic) Atrial fibrillation (Chronic) Condition: Stable - Instructions Diet, Activity, Other Instructions: You presented to the hospital because of vomiting. We believe this was due to your recent chemotherapy drugs. During our stay here we found that you have a infection in your urine. We treated you for three days with antibiotics. While you were here we found your oxygen level to be low. This was because you had some extra fluid on your lungs, we gave you some medications that removed this fluid. Your oxygen levels have improved but you will require supplemental oxygen upto 4Liters through a nasal cannula at home when you are walking or moving around to maintain your oxygen saturation above 90%, at rest you do not need supplemental oxygen We have also started a new medication while you were here for anticoagulation. You will continue to take Elliquis 2.5 mg by mouth twice a day. You have been given a free-trial card for the next 30days, please contact your insurance company for medication coverage. It is important to not miss any doses of this medication. Check for any signs of bleeding in your stool. You are being given a 1-week course of Lasix 20mg 1 tablet daily to continue removing fluid. Please discuss continuing this medication with Dr. Johnston. Make an appointment with Dr. Johnston by the end of the week. You have been provided with a prescription for a blood pressure machine. If you begin to feel lightheaded or dizzy, please check your blood pressure right away. If it low: the top number is below 100 or the bottom number is below 80, please call your doctor immediately. You should continue to take your home medications as prescribed. You should follow up with Dr. Oneil for continued treatment for your cancer. Please follow-up with him in one week for post-hospital evaluation. You should follow-up with a Enrollment Clerk in week for evaluation of our oxygen use. Contact information for Dr. Angel has been provided for you. Please call to make an appointment. You have been referred to Visiting nurse service for physical therapy. Please return to the Emergency Department if you have any worsening of symptoms , vomiting, diarrhea, pain on urination, chest pain, bloody stools, or shortness of breath. Referrals: Shar Angel MD [Staff Physician] - 2 Weeks Jesus Manuel Johnston MD [Staff Physician] - 1 Week Wilberto Oneil MD [Primary Care Provider] - Disposition: VNS/HOME HEALTH CARE - Home Medications Comprehensive Discharge Medication List: Ambulatory Orders Alprazolam [Xanax] 0.25 mg PO BID 10/18/17 Ondansetron [Zofran *Odt*] 8 mg PO Q8H PRN 12/31/17 Silver Sulfadiazine 1% Top Cr [Silvadene -] 1 tube TP QID 12/31/17 Sucralfate [Carafate] 10 ml PO BID 12/31/17 Metoprolol Tartrate [Lopressor -] 25 mg PO BID #60 tablet 01/03/18 Loperamide HCl [Loperamide] 2 mg PO Q6H PRN #10 tablet 01/05/18 Megestrol Acetate Oral Susp [Megace Oral Suspension -] 400 mg PO DAILY 30 Days # 1 cup 01/05/18 Eliquid 2.5mg po BID 02/22/2018 #60 This patient is new to me today: Yes Date on this admission: 02/22/18 Emergency Visit: No Critical Care patient: No - Discharge Referral Referred to [facility] No
[2018-02-22] MEDS ORDERED: FUROSEMIDE 20 MG TABLET (FP) PO SCH (10:00)
[2018-02-22 10:56] VITALS: BP 104/58; PULSE 102; TEMP 97.5
[2018-02-22] MEDS ORDERED: PORTA CATH FLUSH 10 ML IVPUSH PRN (11:23)
--- NOTE | 2018-02-22 12:25 | PN ---
Teaching Attending Note Name of Resident: Cuauhtemoc Almonte ATTENDING PHYSICIAN STATEMENT I saw and evaluated the patient. I reviewed the resident's note and discussed the case with the resident. I agree with the resident's findings and plan as documented. SUBJECTIVE: No fever or hills. feels much better in terms of breathing but tired. ate all her breakfast withno nausea. had BMs OBJECTIVE: NAd CV: RRR Lungs: minimal basilar crackles. improved Ext: No edema A/P : 82 y/o lady with h/o anal cancer ( chem/RTx), HTN, and Anxiety who presented with N/V and then developed acute CHF exacerbation 1- N/V : resolved 2- Acute diastolic CHF exacerbation: improved. - needs oxygen at home due to diastolic CHF . 4 L with ambulation only -cont po lasix 20 mg for 1 week , and card will decide if she needs more after that. try to avoid dehydration given her nausea 3- Pyuria : no dysuria , neg urine cx .s/p Abx x 3 days . 4- H/o A fib : cont lopressor at home dose . cont eliquis ( started here ) .f/u with Dr. valentin she was reminded agin with the side effects of eliquis including bleeding and spinal bleed . she will be watching for bleeding and avoiding falls 5- dispo:DC home today . VNA and O2 were arranged
--- NOTE | 2018-02-22 13:36 | PN ---
Progress Note (short form) - Note Progress Note: Patient seen and examined Reports feeling well. Denies abdominal pain/nausea/vomiting No urinary symptoms Last Vital Signs Temp Pulse Resp BP Pulse Ox 97.5 F L 102 H 18 104/58 96 02/22/18 10:00 02/22/18 10:00 02/22/18 10:00 02/22/18 10:00 02/22/18 09:00 Cor: RSR, No murmurs, No gallops Lungs: Clear to P&A Abd: Soft, Normal bowel sounds, No organomegaly Ext:No significant edema Labs/meds reviewed A/P 82 y/o female -- anal cancer, s/p chemo/RT, admitted with UTI/CHF exacerbation SOB-improved UTI- improved GI symptoms - improved Intake -somewhat better
== END 2018-02-22 15:15 | disposition home health service (06) | DRG 391 ==
LOC: JER 14:33 → JERBED 21:44 → J7W 02-17 16:00
PROVIDERS: ADMIT Internal Medicine; ATTEND Internal Medicine
DX: R11.2 Nausea with vomiting, unspecified (principal); I50.31 Acute diastolic (congestive) heart failure; N39.0 Urinary tract infection, site not specified; C21.0 Malignant neoplasm of anus, unspecified; I48.0 Paroxysmal atrial fibrillation; E88.09 Other disorders of plasma-protein metabolism, not elsewhere classified; I11.0 Hypertensive heart disease with heart failure; E86.0 Dehydration; I48.91 Unspecified atrial fibrillation; F41.9 Anxiety disorder, unspecified; E87.70 Fluid overload, unspecified; R00.0 Tachycardia, unspecified; E83.42 Hypomagnesemia; E87.6 Hypokalemia; I95.9 Hypotension, unspecified; T45.1X5A Adverse effect of antineoplastic and immunosuppressive drugs, initial encounter; D69.59 Other secondary thrombocytopenia
CPT/HCPCS: 36415; 71045-TC-FY; 80048; 80053; 81003; 81015; 82550; 82607; 82728; 82746; 83540; 83550; 83605; 83735; 83880; 84100; 84439; 84443; 84484; 85025; 85027; 86850; 86900; 86901; 87040; 87086; 93005; 93010; 93306-TC; 94761; 96361; 96365; 97116-GP; 97161-GP; 99284-25; J7030; Q0162

== ENCOUNTER 2018-05-07 13:56 | Inpatient (IN) | payer OTHER, MEDICARE ==
[2018-05-07 15:08] LABS: BASO % 0.7 % (0-2.0); EOS % 0.6 % (0-4.5); HEMATOCRIT 38.4 % (32.4-45.2); HEMOGLOBIN 12.9 GM/dL (10.7-15.3); LYMPH % 8.6 % (8-40); MCH 35.2 pg (25.7-33.7); MCHC 33.7 g/dl (32.0-36.0); MEAN CELL VOLUME 104.5 fl (80-96); MEAN PLT VOLUME 11.5 fl (7.5-11.1); MONO % 12.4 % (3.8-10.2); NEUT % 77.7 % (42.8-82.8); RBC 3.68 M/mm3 (3.60-5.2); RDW 18.3 % (11.6-15.6); WHITE BLOOD COUNT 4.7 K/mm3 (4.0-10.0)
[2018-05-07 15:16] LABS: INR 1.42 (0.83-1.09); PROTHROMBIN TIME (PATIENT) 16.8 SEC (9.7-13.0)
--- NOTE | 2018-05-07 15:17 | PDOC ---
Attending Attestation - HPI HPI: 05/07/18 17:00 The patient is an 82-year-old female with past medical history significant for Afib, HTN, Anal CA, and CHF presents to the emergency department with chest pressure since January. The patient reports since January shes been having chest pressure since finishing chemo/radiation denies the discomfort radiation to the back. The patient reports associates symptoms of shortness of breath, states she s on O2 at home, unsure how much. Denies urinary complain, cough, nausea, vomiting. Allergies: Sulfa (Sulfonamide abx) Oncologist: Wilberto Oneil MD - Medical Decision Making 05/07/18 17:00 Documentation prepared by Asia Willis, acting as medical dosimetrist for Livia Paul MD. <Asia Willis - Last Filed: 05/07/18 16:59> - Resident Resident Name: ZaynabYenny - ED Attending Attestation I have performed the following: I have examined & evaluated the patient, The case was reviewed & discussed with the resident, I agree w/resident's findings & plan, Exceptions are as noted - Physicial Exam PE: 05/07/18 17:48 GENERAL: The patient is in no acute distress, supplemental O2 applied HEAD: Normal with no signs of trauma. EYES: PERRLA, EOMI, sclera anicteric, conjunctiva clear. ENT: Ears normal, nares patent, oropharynx clear without exudates. Moist mucous membranes. NECK: Normal range of motion, supple LUNGS: Breath sounds equal, clear to auscultation bilaterally. HEART: Regular rate and rhythm, normal S1 and S2 without murmur, rub or gallop. ABDOMEN: Soft, nontender, normoactive bowel sounds. No guarding, no rebound. EXTREMITIES: Normal range of motion, no edema. NEUROLOGICAL: Cranial nerves II through XII grossly intact. Normal speech. No focal neurological deficits. SKIN: Warm, Dry, normal turgor, no rashes or lesions noted. - Medical Decision Making Chest pain 05/07/18 17:50 Laboratory Tests 05/07/18 05/07/18 05/07/18 14:55 14:55 14:55 WBC 4.7 Hgb 12.9 Hct 38.4 Plt Count 26 L* D BUN 24 H Creatinine 1.2 Creatine Kinase 45 Troponin I < 0.02 B-Natriuretic Peptide 2876.1 H Afib rate of 104 bpm, axis nml, no st elevation or depression, t wave inversions noted III, aVF Noted to have: thrombocytopenia! No signs of bleeding, no headache, no hematuria, HGb stable Trop negative CXR: chronic interstital changes 05/07/18 17:52 CTA pending Will admit <Livia Paul - Last Filed: 05/07/18 17:53>
[2018-05-07 15:29] LABS: ALBUMIN 2.9 g/dl (3.4-5.0); ALK PHOS 54 U/L (45-117); ANION GAP 12 MMOL/L (8-16); BILIRUBIN,TOTAL 0.6 mg/dL (0.2-1); BLOOD UREA NITROGEN 24 mg/dL (7-18); CALCIUM 8.4 mg/dL (8.5-10.1); CHLORIDE 104 mmol/L (98-107); CO2 25 mmol/L (21-32); CREATININE 1.2 mg/dL (0.55-1.3); GLUCOSE,RANDOM 137 mg/dL (74-106); POTASSIUM 3.7 mmol/L (3.5-5.1); SGOT/AST 20 U/L (15-37); SGPT/ALT 16 U/L (13-61); SODIUM 140 mmol/L (136-145); TOT PROT 6.7 g/dl (6.4-8.2)
[2018-05-07] MEDS ORDERED: SODIUM CHLORIDE 500 ML IV STA (15:49)
--- NOTE | 2018-05-07 16:16 | PDOC ---
History of Present Illness <Daniela Lynch - Last Filed: 05/07/18 18:49> - General History Source: Patient Exam Limitations: No Limitations - History of Present Illness Initial Comments: 05/07/18 16:13 Pt is an 82yo f with PMH of anal cancer, Afib (on Eliquis), CHF presenting to ED with complaints of chest pressure x3 months since January. Pt has had chemotherapy and RT for anal cancer and states she has been feeling a chest pressure since then. It is associated with SOB (pt is on oxygen at home, does not know how much). Pt says pressure is there when she wakes up and does not go away. She denies fever, chills, cough, n/v, headaches, neck pain, lightheadedness. Admits to loss of appetite and fatigue. PMD: Onc: Clarice PMH: see hpi Meds: see med rec Allergies: sulfa <Yenny Worthy - Last Filed: 05/07/18 20:18> - General Chief Complaint: Chest Pain Stated Complaint: CHEST THIGTNESS, WEAKNESS Time Seen by Provider: 05/07/18 14:58 Past History <Daniela Lynch - Last Filed: 05/07/18 18:49> - Past Medical History Anemia: No Asthma: No Cancer: Yes (ANAL Cancer) Cardiac Disorders: No (A-FIB) CVA: No COPD: Yes (o2 dependent) CHF: No DVT: No Dementia: No Diabetes: No GI Disorders: No Disorders: Yes (UTI) HTN: Yes Hypercholesterolemia: No Liver Disease: No Seizures: No Thyroid Disease: No - Surgical History Abdominal Surgery: Yes Appendectomy: No Cardiac Surgery: No Cholecystectomy: No Lung Surgery: No Neurologic Surgery: Yes (BACK SX) Orthopedic Surgery: Yes (RT Knee) - Immunization History Immunization Up to Date: Yes - Suicide/Smoking/Psychosocial Hx Smoking History: Never smoked Have you smoked in the past 12 months: No Information on smoking cessation initiated: No Hx Alcohol Use: No Drug/Substance Use Hx: No Substance Use Type: None Hx Substance Use Treatment: No <Yenny Worthy - Last Filed: 05/07/18 20:18> - Past Medical History Allergies/Adverse Reactions: Allergies Allergy/AdvReac Type Severity Reaction Status Date / Time Sulfa (Sulfonamide Allergy Verified 05/07/18 19:42 Antibiotics) Home Medications: Ambulatory Orders Alprazolam [Xanax] 0.25 mg PO BID 10/18/17 Ondansetron [Zofran *Odt*] 8 mg PO Q8H PRN 12/31/17 Megestrol Acetate Oral Susp [Megace Oral Suspension -] 400 mg PO DAILY 30 Days # 1 cup 01/05/18 Apixaban [Eliquis -] 2.5 mg PO BID #60 tablet 02/22/18 Furosemide [Lasix -] 20 mg PO DAILY #7 tablet 02/22/18 Noble-Cath Flush [Noble-Cath Flush -] 10 ml IVPUSH PRN PRN ml 02/22/18 Metoprolol Tartrate [Lopressor -] 25 mg PO BID tablet 02/26/18 Docusate Sodium [Colace] 100 mg PO BID 05/07/18 Review of Systems - Review of Systems Constitutional: Yes: Loss of Appetite. No: Chills, Fever HEENTM: No: Eye Pain, Blurred Vision, Recent change in vision, Tinnitus, Throat Pain, Mouth Pain Respiratory: Yes: Shortness of Breath. No: Cough, Hemoptysis Cardiac (ROS): Yes: Palpitations, Chest Tightness. No: Lightheadedness, Syncope ABD/GI: No: Constipated, Diarrhea, Nausea, Vomiting : No: Burning, Dysuria, Hematuria Musculoskeletal: No: Back Pain, Joint Pain, Neck Pain Integumentary: No: Symptoms Reported Neurological: No: Headache, Numbness, Paresthesia <Yenny Worthy - Last Filed: 05/07/18 20:18> *Physical Exam - Vital Signs Last Vital Signs Temp Pulse Resp BP Pulse Ox 97.4 F L 109 H 18 114/69 95 05/07/18 14:10 05/07/18 16:00 05/07/18 16:00 05/07/18 16:00 05/07/18 14:59 <Daniela Lynch - Last Filed: 05/07/18 18:49> - Vital Signs Last Vital Signs Temp Pulse Resp BP Pulse Ox 97.4 F L 109 H 18 114/69 95 05/07/18 14:10 05/07/18 16:00 05/07/18 16:00 05/07/18 16:00 05/07/18 14:59 - Physical Exam General Appearance: Yes: Appropriately Dressed, Mild Distress, Cachetic HEENT: positive: EOMI, KASSIE, TMs Normal, Pharynx Normal Neck: positive: Trachea midline, Supple. negative: Lymphadenopathy (R), Lymphadenopathy (L) Respiratory/Chest: positive: Decreased Breath Sounds, Crackles, Rhonchi Cardiovascular: positive: S1, S2, Irregularly Irregular. negative: Edema, JVD, Murmur Vascular Pulses: Carotid (R): 2+, Carotid (L): 2+, Dorsalis-Pedis (R): 2+, Doralis-Pedis (L): 2+ Gastrointestinal/Abdominal: positive: Normal Bowel Sounds, Soft. 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, Fully Oriented, Alert, Normal Mood/ Affect, Normal Response, Motor Strength 5/5 <Yenny Worthy - Last Filed: 05/07/18 20:18> Heart Score/ECG Review - History History: Slightly suspicious - Electrocardiogram EKG: Non specific repolarization disturbance - Age Age: >/= 65 - Risk Factors Risk Factors Heart Score: Yes Hx Hypertension Based on the list above the patient has:: 1-2 risk factors - Troponin Troponin: </= normal limit - Score Heart Score - Total: 4 <Yenny Worthy - Last Filed: 05/07/18 20:18> ED Treatment Course - LABORATORY CBC & Chemistry Diagram: 05/07/18 14:55 05/07/18 14:55 - ADDITIONAL ORDERS Additional order review: Laboratory Results 05/07/18 05/07/18 05/07/18 15:00 14:55 14:55 PT with INR INR Sodium 140 Potassium 3.7 Chloride 104 Carbon Dioxide 25 Anion Gap 12 BUN 24 H Creatinine 1.2 Creat Clearance w eGFR 43.23 Random Glucose 137 H Calcium 8.4 L Total Bilirubin 0.6 AST 20 ALT 16 Alkaline Phosphatase 54 Creatine Kinase 45 Troponin I < 0.02 B-Natriuretic Peptide 2876.1 H Total Protein 6.7 Albumin 2.9 L Blood Type O POSITIVE Antibody Screen Negative 05/07/18 14:55 PT with INR 16.80 H INR 1.42 H Sodium Potassium Chloride Carbon Dioxide Anion Gap BUN Creatinine Creat Clearance w eGFR Random Glucose Calcium Total Bilirubin AST ALT Alkaline Phosphatase Creatine Kinase Troponin I B-Natriuretic Peptide Total Protein Albumin Blood Type Antibody Screen 05/07/18 14:55 RBC 3.68 MCV 104.5 H MCHC 33.7 RDW 18.3 H MPV 11.5 H D Neutrophils % 77.7 Lymphocytes % 8.6 D Monocytes % 12.4 H Eosinophils % 0.6 D Basophils % 0.7 - Medications Given in the ED: ED Medications Discontinued Medications Generic Name Dose Route Start Last Admin Trade Name Freq PRN Reason Stop Dose Admin Sodium Chloride 500 mls @ 1,000 mls/hr 05/07/18 15:49 05/07/18 16:07 Normal Saline - IV 05/07/18 16:18 1,000 mls/hr ASDIR STA Administration - Additional Consults Time Called: 18:49 (Paged service) Consult/PCP: Dr. Johnston <Daniela Lynch - Last Filed: 05/07/18 18:49> - LABORATORY CBC & Chemistry Diagram: 05/07/18 14:55 05/07/18 14:55 - ADDITIONAL ORDERS Additional order review: Laboratory Results 05/07/18 05/07/18 05/07/18 14:55 14:55 14:55 PT with INR 16.80 H INR 1.42 H Sodium 140 Potassium 3.7 Chloride 104 Carbon Dioxide 25 Anion Gap 12 BUN 24 H Creatinine 1.2 Creat Clearance w eGFR 43.23 Random Glucose 137 H Calcium 8.4 L Total Bilirubin 0.6 AST 20 ALT 16 Alkaline Phosphatase 54 Creatine Kinase 45 Troponin I < 0.02 B-Natriuretic Peptide 2876.1 H Total Protein 6.7 Albumin 2.9 L 05/07/18 14:55 RBC 3.68 MCV 104.5 H MCHC 33.7 RDW 18.3 H Neutrophils % 77.7 Lymphocytes % 8.6 D Monocytes % 12.4 H Eosinophils % 0.6 D Basophils % 0.7 - RADIOLOGY Radiology Studies Ordered: Category Date Time Status CHEST CTA [CT] Stat CT Scan 05/07/18 15:49 Ordered CHEST X-RAY PORTABLE* [RAD] Stat Radiology 05/07/18 15:32 Taken <Yenny Worthy - Last Filed: 05/07/18 20:18> Medical Decision Making - Medical Decision Making 05/07/18 19:34 Pt is an 82yo f with PMH of anal cancer, Afib (on Eliquis), CHF presenting to ED with complaints of chest pressure x3 months since January. Vitals: PE: cachectic, crackles/rales in lungs. swelling in ankles. irregularly irregular heart sounds. DDx: ACS, pe, pna, ptx, carditis, pneumonitis. no fever, low suspicion for infection. cbc, cmp, troponin, ua. cxr, ekg, cta (tachycardic, tachypneic, low O2 saturation althou on Eliquis) EKG: afib with RVR. no judy or depressions. CXR: no acute changes Labs: Laboratory Tests 05/07/18 05/07/18 05/07/18 14:55 14:55 14:55 WBC 4.7 Hgb 12.9 Hct 38.4 MCV 104.5 H MCH 35.2 H RDW 18.3 H Plt Count 26 L* D MPV 11.5 H D Monocytes % 12.4 H PT with INR 16.80 H INR 1.42 H Sodium 140 Potassium 3.7 BUN 24 H Creatinine 1.2 Creat Clearance w eGFR 43.23 Random Glucose 137 H Calcium 8.4 L Troponin I < 0.02 B-Natriuretic Peptide Total Protein 6.7 Albumin 2.9 L 05/07/18 14:55 WBC Hgb Hct MCV MCH RDW Plt Count MPV Monocytes % PT with INR INR Sodium Potassium BUN Creatinine Creat Clearance w eGFR Random Glucose Calcium Troponin I B-Natriuretic Peptide 2876.1 H Total Protein Albumin CTA: No PE, increased interstitial thickening. Spoke to Dr. Oneil, recommended stopping Eliquis and transfusing platelets. Will consult Dr. Johnston about Eliquis. Call was placed twice, no call back. Pt consented to platelets, will transfuse. Pt will be admitted for further management. <Yenny Worthy - Last Filed: 05/07/18 20:18> *DC/Admit/Observation/Transfer <Daniela Lynch - Last Filed: 05/07/18 18:49> - Discharge Dispostion Decision to Admit order: Yes <Yenny Worthy - Last Filed: 11/07/18 20:18> Diagnosis at time of Disposition: Chest tightness, Thrombocytopenia - Discharge Dispostion Condition at time of disposition: Stable - Referrals Referrals: Wilberto Oneil MD [Primary Care Provider] - - Patient Instructions - Post Discharge Activity
[2018-05-07 16:36] LABS: PLATELET COUNT 26 K/MM3 (134-434)
[2018-05-07 16:37] LABS: PLATELET ESTIMATE DECREASED
--- NOTE | 2018-05-07 19:00 | CON.CARD ---
Consult Consult Specialty:: Cardiology Reason for Consultation:: CP - History of Present Illness History of Present Illness: Pt is an 82yo f with PMH of anal cancer, Afib (on Eliquis), CHF presenting to ED with complaints of chest pressure x3 months since January. Pt has had chemotherapy and RT for anal cancer and states she has been feeling a chest pressure since then. It is associated with SOB (pt is on oxygen at home, does not know how much). Pt says pressure is there when she wakes up and does not go away. She denies fever, chills, cough, n/v, headaches, neck pain, lightheadedness. Admits to loss of appetite and fatigue. 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 Medications - Allergies Allergies/Adverse Reactions: Allergies Allergy/AdvReac Type Severity Reaction Status Date / Time Sulfa (Sulfonamide Allergy Verified 05/07/18 19:42 Antibiotics) - Home Medications Home Medications: Ambulatory Orders Alprazolam [Xanax] 0.25 mg PO BID 10/18/17 Ondansetron [Zofran *Odt*] 8 mg PO Q8H PRN 12/31/17 Megestrol Acetate Oral Susp [Megace Oral Suspension -] 400 mg PO DAILY 30 Days # 1 cup 01/05/18 Apixaban [Eliquis -] 2.5 mg PO BID #60 tablet 02/22/18 Furosemide [Lasix -] 20 mg PO DAILY #7 tablet 02/22/18 Noble-Cath Flush [Noble-Cath Flush -] 10 ml IVPUSH PRN PRN ml 02/22/18 Metoprolol Tartrate [Lopressor -] 25 mg PO BID tablet 02/26/18 Docusate Sodium [Colace] 100 mg PO BID 05/07/18 Family Disease History - Family Disease History Family Disease History: CA: Father (leukemia), Sister (breast cancer), Other: Mother (alzheimer) Review of Systems - Review of Systems Constitutional: reports: Weakness Eyes: reports: No Symptoms HENT: reports: No Symptoms Neck: reports: No Symptoms Cardiovascular: reports: Chest Pain Respiratory: reports: No Symptoms Gastrointestinal: reports: No Symptoms Genitourinary: reports: No Symptoms Breasts: reports: No Symptoms Reported Musculoskeletal: reports: No Symptoms Integumentary: reports: No Symptoms Neurological: reports: No Symptoms Endocrine: reports: No Symptoms Hematology/Lymphatic: reports: No Symptoms Psychiatric: reports: No Symptoms Vital Signs: Vital Signs Temperature 97.4 F L 05/07/18 14:10 Pulse Rate 109 H 05/07/18 16:00 Respiratory Rate 18 05/07/18 16:00 Blood Pressure 114/69 05/07/18 16:00 O2 Sat by Pulse Oximetry (%) 95 05/07/18 14:59 Constitutional: Yes: Well Nourished, No Distress, Calm Eyes: Yes: WNL, Conjunctiva Clear, EOM Intact HENT: Yes: WNL, Atraumatic, Normocephalic Neck: Yes: WNL, Supple, Trachea Midline Respiratory: Yes: WNL, Regular, CTA Bilaterally Gastrointestinal: Yes: WNL, Normal Bowel Sounds Renal/: Yes: WNL Cardiovascular: Yes: WNL, Regular Rate and Rhythm Musculoskeletal: Yes: WNL Extremities: Yes: WNL Integumentary: Yes: WNL Neurological: Yes: WNL, Alert, Oriented ...Motor Strength: WNL Psychiatric: Yes: WNL, Alert, Oriented - Other Data Labs, Other Data: CBC, BMP 05/07/18 14:55 05/07/18 14:55 INR, PTT INR 1.42 (0.83-1.09) H 05/07/18 14:55 Troponin, BNP 05/07/18 05/07/18 14:55 14:55 Troponin I < 0.02 B-Natriuretic Peptide 2876.1 H Troponin, BNP 05/07/18 05/07/18 14:55 14:55 Troponin I < 0.02 B-Natriuretic Peptide 2876.1 H Imaging - Results Chest X-ray: Report Reviewed EKG: Pending Assessment/Plan - Problems (1) Anxiety and depression Code(s): F41.9 - ANXIETY DISORDER, UNSPECIFIED; F32.9 - MAJOR DEPRESSIVE DISORDER, SINGLE EPISODE, UNSPECIFIED (2) Thrombocytopenia Assessment/Plan: F?u with heme-onc. NOAC held. Code(s): D69.6 - THROMBOCYTOPENIA, UNSPECIFIED (3) Anal cancer Code(s): C21.0 - MALIGNANT NEOPLASM OF ANUS, UNSPECIFIED (4) Atrial fibrillation Assessment/Plan: On metoprolol bid for HR control. NOAC held due to low platelets. Replete K+ , and keep 4-4.5 Follow Mg, and keep 2-2.4. Keep P04 2.5-4.9 Code(s): I48.91 - UNSPECIFIED ATRIAL FIBRILLATION Qualifiers: Atrial fibrillation type: unspecified Qualified Code(s): I48.91 - Unspecified atrial fibrillation (5) Diastolic CHF Code(s): I50.30 - UNSPECIFIED DIASTOLIC (CONGESTIVE) HEART FAILURE (6) Vomiting Code(s): R11.10 - VOMITING, UNSPECIFIED Qualifiers: Vomiting type: unspecified Vomiting Intractability: intractable Nausea presence: with nausea Qualified Code(s): R11.2 - Nausea with vomiting, unspecified (7) Weakness Code(s): R53.1 - WEAKNESS
--- NOTE | 2018-05-07 20:02 | PN ---
Teaching Attending Note Name of Resident: Asia Maldonado ATTENDING PHYSICIAN STATEMENT I saw and evaluated the patient. I reviewed the resident's note and discussed the case with the resident. I agree with the resident's findings and plan as documented. SUBJECTIVE: Patient is an 82 year old woman with history of anal cancer, Afib (on Eliquis) and CHF presenting to ER with complaints of chest pressure for 3 months. She has had chemo and radiotherapy for anal cancer and states that she has been feeling a chest pressure since then. It is associated with SOB (she is on oxygen at home, does not know how much). She says pressure is there when she wakes up and does not go away. She denies fever, chills, cough, vomiting, headaches, or dizziness. Admits to loss of appetite and fatigue. OBJECTIVE: Alert Vital Signs Period Temp Pulse Resp BP Sys/Rao Pulse Ox Last 24 Hr 97.4 F 109-113 18-18 114-115/66-69 93-95 HEENT: No Jaundice, eye redness or discharge, PERRLA, EOMI. Normocephalic, atraumatic. External ears are normal and hearing is grossly intact. No nasal discharge. Neck: Supple, nontender. No palpable adenopathy or thyromegaly. No JVD Chest: Good effort. Clear to auscultation and percussion. Heart: Irregularly irregular. Tachycardia. No S3, rub or murmur Abdomen: Not distended, soft, nontender and no HSM. No rebound or guarding. Normoactive bowel sounds. Ext: Peripheral pulses intact. No leg edema. Skin: Warm and dry. No petechiae, rash or ecchymosis. Neuro: Alert. Oriented x3. CN 2-12 grossly intact. Sensation grossly intact in all four extremities and DTR are symmetric. Home Medications Medication Instructions Recorded Alprazolam [Xanax] 0.25 mg PO BID 10/18/17 Ondansetron [Zofran *Odt*] 8 mg PO Q8H PRN 12/31/17 Megestrol Acetate Oral Susp 400 mg PO DAILY 30 Days #1 cup 01/05/18 [Megace Oral Suspension -] Apixaban [Eliquis -] 2.5 mg PO BID #60 tablet 02/22/18 Furosemide [Lasix -] 20 mg PO DAILY #7 tablet 02/22/18 Noble-Cath Flush [Noble-Cath Flush 10 ml IVPUSH PRN PRN ml 02/22/18 -] Metoprolol Tartrate [Lopressor -] 25 mg PO BID tablet 02/26/18 Docusate Sodium [Colace] 100 mg PO BID 05/07/18 Abnormal Lab Results 05/07/18 05/07/18 05/07/18 14:55 14:55 14:55 MCV 104.5 H MCH 35.2 H RDW 18.3 H Plt Count 26 L* D MPV 11.5 H D Monocytes % 12.4 H PT with INR 16.80 H INR 1.42 H BUN 24 H Random Glucose 137 H Calcium 8.4 L B-Natriuretic Peptide Albumin 2.9 L 05/07/18 14:55 MCV MCH RDW Plt Count MPV Monocytes % PT with INR INR BUN Random Glucose Calcium B-Natriuretic Peptide 2876.1 H Albumin ASSESSMENT AND PLAN: 1. Chest pressure/tachycardia - No PE on CTPA. CT shows interstitial pneumonitis. "Pain" is atypical. EKG shows afib with no significant ST-T wave changes. Will admit to telemetry to rule out ACS and get ECHO to rule out pericarditis/effusion. Consider IV lasix after ECHO. Give lopressor for Afib rate control and hold eliquis in view of very low platelet count. Continue PPI for GERD. Consult cardiology. 2. Thrombocytopenia - Etiology unclear. Hold Eliquis. Consult hematology. Getting platelet transfusion. 3. DVT prophylaxis - Early ambulation for now. Too risky to use heparin or SCD. 4. Advance directives - Full code
[2018-05-07] MEDS ORDERED: METOPROLOL TARTRATE 25 MG TABLET (FP) PO ONE (21:30)
[2018-05-07] MEDS ORDERED: ALPRAZolam 0.25 MG TABLET PO ONE (21:45)
[2018-05-07] MEDS ORDERED: METOPROLOL TARTRATE 25 MG TABLET (FP) ONE (22:06)
[2018-05-07] MEDS ORDERED: ALPRAZolam 0.25 MG TABLET ONE (22:06)
[2018-05-07] MEDS ORDERED: PORTA CATH FLUSH 10 ML IVPUSH PRN (23:41)
[2018-05-07] MEDS ORDERED: FUROSEMIDE 40 MG/4 ML INJECTABLE VIAL IVPUSH ONE (23:41)
[2018-05-07] MEDS ORDERED: ONDANSETRON *ODT* 4 MG TABLET SL PRN (23:41)
--- NOTE | 2018-05-07 23:55 | HP ---
CHIEF COMPLAINT: tachycrdia, SOB,chest pressure PCP: HISTORY OF PRESENT ILLNESS: Patient is a 82 y/o female with a history of anal cancer, afib on eliquis, CHF, and anxiety who presents to the ED from her oncologists office ( Dr. Oneil) for tachycardia. She also reports she has been short of breath over the last few weeks. She believes it started after she ended her radiation in January. She notes that when she starts exercising or walking she feels a chest pressure and begins to be short of breath. She reports it has been getting worse over the past few weeks. Her doctors thought it might be due to weakness so they set her up with PT, but she reports the SOB did not improve with PT. Patient was recently in the hospital in March where she was found to have new CHF and was sent home on lasix. She was also started on eliquis at that time for afib and she was sent home with home O2 because she was having trouble keeping her saturation above 88 with exercise. She reports at home she only uses the O2 at night time. She also has nebulizer treatments but uses them infrequently. Patient denies feeing palpations, fevers, chills, any recent illnesses, headache , any recent bleeding or dizziness. She notes she feels nauseous and over the weekend she had diarrhea but those episodes have resolved. She has not seen her Proctologist recently, she had to miss her last appointment de to the diarrhea. ER course was notable for: (1) (2) (3) Recent Travel: denies PAST MEDICAL HISTORY: anal cancer, afib, CHF, anxiety PAST SURGICAL HISTORY: Social History: Smoking: Alcohol: Drugs: Family History: Allergies Sulfa (Sulfonamide Antibiotics) Allergy (Verified 05/07/18 19:42) HOME MEDICATIONS: Home Medications Medication Instructions Recorded Alprazolam [Xanax] 0.25 mg PO BID 10/18/17 Ondansetron [Zofran *Odt*] 8 mg PO Q8H PRN 12/31/17 Megestrol Acetate Oral Susp 400 mg PO DAILY 30 Days #1 cup 01/05/18 [Megace Oral Suspension -] Apixaban [Eliquis -] 2.5 mg PO BID #60 tablet 02/22/18 Furosemide [Lasix -] 20 mg PO DAILY #7 tablet 02/22/18 Noble-Cath Flush [Noble-Cath Flush 10 ml IVPUSH PRN PRN ml 02/22/18 -] Metoprolol Tartrate [Lopressor -] 25 mg PO BID tablet 02/26/18 Docusate Sodium [Colace] 100 mg PO BID 05/07/18 REVIEW OF SYSTEMS CONSTITUTIONAL: Absent: fever, chills, diaphoresis, generalized weakness, malaise, loss of appetite, weight change HEENT: Absent: rhinorrhea, nasal congestion, throat pain, throat swelling, difficulty swallowing, mouth swelling, ear pain, eye pain, visual changes CARDIOVASCULAR: chest pressure Absent: chest pain, syncope, palpitations, irregular heart rate, lightheadedness , peripheral edema RESPIRATORY: shortness of breath, Absent: cough, dyspnea with exertion, orthopnea, wheezing, stridor, hemoptysis GASTROINTESTINAL: Absent: abdominal pain, abdominal distension, nausea, vomiting, diarrhea, constipation, melena, hematochezia GENITOURINARY: Absent: dysuria, frequency, urgency, hesitancy, hematuria, flank pain, genital pain MUSCULOSKELETAL: Absent: myalgia, arthralgia, joint swelling, back pain, neck pain SKIN: Absent: rash, itching, pallor HEMATOLOGIC/IMMUNOLOGIC: Absent: easy bleeding, easy bruising, lymphadenopathy, frequent infections ENDOCRINE: Absent: unexplained weight gain, unexplained weight loss, heat intolerance, cold intolerance NEUROLOGIC: Absent: headache, focal weakness or paresthesias, dizziness, unsteady gait, seizure, mental status changes, bladder or bowel incontinence PSYCHIATRIC: Absent: anxiety, depression, suicidal or homicidal ideation, hallucinations. PHYSICAL EXAMINATION Vital Signs - 24 hr 05/07/18 05/07/18 05/07/18 14:10 14:59 16:00 Temperature 97.4 F L Pulse Rate 113 H Pulse Rate [ 109 H Apical] Respiratory 18 18 Rate Blood Pressure 115/66 Blood Pressure 114/69 [Right Arm] O2 Sat by Pulse 93 L 95 Oximetry (%) GENERAL: Awake, alert, and fully oriented, in no acute distress. HEAD: Normal with no signs of trauma. EYES: Pupils equal, round and reactive to light, extraocular movements intact, No lid lag. EARS, NOSE, THROAT: Moist mucous membranes. LUNGS: poor indicatory effort No wheezes, and no crackles. No accessory muscle use. HEART: irregularly irregular ABDOMEN: Soft, nontender, not distended, normoactive bowel sounds, no guarding, no rebound, no masses. MUSCULOSKELETAL: Normal range of motion at all joints. No bony deformities or tenderness. No CVA tenderness. LOWER EXTREMITIES: 2+ pulses, warm, well-perfused. No calf tenderness. No peripheral edema. NEUROLOGICAL: Cranial nerves II-XII intact. Normal speech. PSYCHIATRIC: Cooperative. Good eye contact. Appropriate mood and affect. SKIN: Warm, dry, normal turgor, no rashes or lesions noted, normal capillary refill. Laboratory Results - last 24 hr CBC, BMP 05/07/18 14:55 05/07/18 14:55 ASSESSMENT/PLAN: Patient is a 82 y/o female with a history of anal cancer, afib on eliquis, CHF, and anxiety who presents to the ED from her oncologists office (Dr. Oneil) for tachycardia. Patient also has SOB and chest pressure. #r/o ACS - per ED history, patient presented with chest pain, not found or described on subsequent examinations - first troponin <.02, f/u 2nd trop - ekg: afib with RVR - unlikely ACS at this time, monitor on tele as obs #afib with RVR - rate 113 on exam - one time lopressor dose 25 mg po, patient missed pm dose - continue lopressor 25 mg BID - per dr. Clarice Quintero - Cardio consulted, ED did NOT discuss holding Ingrid with cardio - CHADSVASC 5 #thrombocytopenia - 2/2 to unknown cause, s/p chemo, unlikley septic with no inection, unlikely DIC, unlikely Eliquiss as that is not the mechanism of action, no evidence of bleeding - hx of thrombocytopenia in the past with transfusion, continue transfusion threshold if < 50 - patient receiving 2 units of platelets in the ED - f/u am CBC and trend platelets - f/u Dr. Oneil, aware of patients status #CHF exacerbation - likely 2/2 to afib - BNP: 2876 - 20 IV lasix in ED, continue 20 mg po lasix daily - 02/15 ECHO: mild-mderate , LA mildly dilated, EF 65-70 - f/u new Echo - monitor I's & O's, monitor daily weights #shotness of breath - likely 2/2 to CHF vs interstial lung disease - on home O2 at night - CXR: chronic interstitial and nodular changes - chest/thorax CTA: prominent B/L thickening within Uupper and lower lung walsh with chronic interstital lung disease, no evidence of PE - could consult Pulmonology if indicated - duonebs held for now as patient in afib with RVR #anxiety - xanax .25 mg BID #nausea - continue Zofran, QTC 449 FEN - continue Normal diet Full code at this time, patient may benefit from Palliative care consult Visit type - Emergency Visit Emergency Visit: Yes ED Registration Date: 05/07/18 Care time: The patient presented to the Emergency Department on the above date and was hospitalized for further evaluation of their emergent condition. - New Patient This patient is new to me today: Yes Date on this admission: 05/08/18 - Critical Care Critical Care patient: No
[2018-05-08] MEDS ORDERED: FUROSEMIDE 40 MG/4 ML INJECTABLE VIAL ONE (01:08)
[2018-05-08 06:33] LABS: BASO % 0.3 % (0-2.0); EOS % 1.1 % (0-4.5); HEMATOCRIT 33.7 % (32.4-45.2); HEMOGLOBIN 11.1 GM/dL (10.7-15.3); LYMPH % 6.6 % (8-40); MCH 34.2 pg (25.7-33.7); MCHC 32.9 g/dl (32.0-36.0); MEAN CELL VOLUME 104.1 fl (80-96); MEAN PLT VOLUME 9.7 fl (7.5-11.1); MONO % 10.6 % (3.8-10.2); NEUT % 81.4 % (42.8-82.8); PLATELET COUNT 61 K/MM3 (134-434); RBC 3.24 M/mm3 (3.60-5.2); RDW 17.9 % (11.6-15.6); WHITE BLOOD COUNT 5.9 K/mm3 (4.0-10.0)
[2018-05-08 07:04] LABS: ALBUMIN 2.7 g/dl (3.4-5.0); ALK PHOS 60 U/L (45-117); ANION GAP 11 MMOL/L (8-16); BILIRUBIN,TOTAL 0.7 mg/dL (0.2-1); BLOOD UREA NITROGEN 19 mg/dL (7-18); CALCIUM 8.3 mg/dL (8.5-10.1); CHLORIDE 106 mmol/L (98-107); CO2 27 mmol/L (21-32); CREATININE 0.9 mg/dL (0.55-1.3); GLUCOSE,RANDOM 78 mg/dL (74-106); POTASSIUM 3.4 mmol/L (3.5-5.1); SGOT/AST 15 U/L (15-37); SGPT/ALT 15 U/L (13-61); SODIUM 144 mmol/L (136-145); TOT PROT 5.9 g/dl (6.4-8.2)
--- NOTE | 2018-05-08 09:16 | PN ---
Teaching Attending Note Name of Resident: Wendy Perry ATTENDING PHYSICIAN STATEMENT I saw and evaluated the patient. I reviewed the resident's note and discussed the case with the resident. I agree with the resident's findings and plan as documented. SUBJECTIVE: Patient is comfortable with no acute distress. OBJECTIVE: Vital Signs Temperature 97.8 F 05/08/18 08:39 Pulse Rate 122 H 05/08/18 08:39 Respiratory Rate 20 05/08/18 08:39 Blood Pressure 124/69 05/08/18 08:39 O2 Sat by Pulse Oximetry (%) 95 05/08/18 08:39 GENERAL: Awake, alert, and fully oriented, in no acute distress. HEAD: Normal with no signs of trauma. EYES: Pupils equal, round and reactive to light, extraocular movements intact. EARS, NOSE, THROAT: Moist mucous membranes. LUNGS: poor indicatory effort No wheezes, and no crackles. No accessory muscle use. HEART: irregularly irregular with RVR rate of 122. ABDOMEN: Soft, nontender, ND, positive BS, no guarding, no rebound, no masses. EXTREMITIES: 2+ pulses, warm, well-perfused. No calf tenderness. No peripheral edema. NEUROLOGICAL: Cranial nerves II-XII intact. Normal speech. PSYCHIATRIC: Cooperative. Good eye contact. Appropriate mood and affect. SKIN: Warm, dry, normal turgor, no rashes or lesions noted, normal capillary refill. CBCD WBC 5.9 K/mm3 (4.0-10.0) 05/08/18 05:30 RBC 3.24 M/mm3 (3.60-5.2) L 05/08/18 05:30 Hgb 11.1 GM/dL (10.7-15.3) 05/08/18 05:30 Hct 33.7 % (32.4-45.2) 05/08/18 05:30 MCV 104.1 fl (80-96) H 05/08/18 05:30 MCHC 32.9 g/dl (32.0-36.0) 05/08/18 05:30 RDW 17.9 % (11.6-15.6) H 05/08/18 05:30 Plt Count 61 K/MM3 (134-434) L D 05/08/18 05:30 MPV 9.7 fl (7.5-11.1) D 05/08/18 05:30 CMP Sodium 144 mmol/L (136-145) 05/08/18 05:30 Potassium 3.4 mmol/L (3.5-5.1) L 05/08/18 05:30 Chloride 106 mmol/L (98-107) 05/08/18 05:30 Carbon Dioxide 27 mmol/L (21-32) 05/08/18 05:30 Anion Gap 11 MMOL/L (8-16) 05/08/18 05:30 BUN 19 mg/dL (7-18) H 05/08/18 05:30 Creatinine 0.9 mg/dL (0.55-1.3) 05/08/18 05:30 Creat Clearance w eGFR > 60 (>60) 05/08/18 05:30 Random Glucose 78 mg/dL (74-106) 05/08/18 05:30 Calcium 8.3 mg/dL (8.5-10.1) L 05/08/18 05:30 Total Bilirubin 0.7 mg/dL (0.2-1) 05/08/18 05:30 AST 15 U/L (15-37) 05/08/18 05:30 ALT 15 U/L (13-61) 05/08/18 05:30 Alkaline Phosphatase 60 U/L (45-117) 05/08/18 05:30 Total Protein 5.9 g/dl (6.4-8.2) L 05/08/18 05:30 Albumin 2.7 g/dl (3.4-5.0) L 05/08/18 05:30 CARDIAC ENZYMES Creatine Kinase 45 IU/L (26-192) 05/07/18 14:55 Troponin I < 0.02 ng/ml (0.00-0.05) 05/07/18 23:38 Current Medications Generic Name Dose Route Start Last Admin Trade Name Freq PRN Reason Stop Dose Admin Alprazolam 0.25 mg 05/08/18 10:00 Xanax - PO BID JAKUB Furosemide 20 mg 05/08/18 10:00 Lasix - PO DAILY JAKUB IV Flush 10 ml 05/07/18 23:41 Noble-Cath Flush IVPUSH PRN PRN FLUSH Influenza Virus Vaccine Quadrival 60 mcg 05/08/18 10:00 Flulaval Quad [id number] IM 05/08/18 10:01 .ONCE ONE Megestrol Acetate 400 mg 05/08/18 10:00 Megace Oral Suspension - PO DAILY JAKUB Metoprolol Tartrate 25 mg 05/08/18 10:00 Lopressor - PO BID JAKUB Ondansetron HCl 8 mg 05/07/18 23:41 Zofran Odt - SL Q8H PRN NAUSEA AND/OR VOMITING Home Medications Medication Instructions Recorded Alprazolam [Xanax] 0.25 mg PO BID 10/18/17 Ondansetron [Zofran *Odt*] 8 mg PO Q8H PRN 12/31/17 Megestrol Acetate Oral Susp 400 mg PO DAILY 30 Days #1 cup 01/05/18 [Megace Oral Suspension -] Apixaban [Eliquis -] 2.5 mg PO BID #60 tablet 02/22/18 Furosemide [Lasix -] 20 mg PO DAILY #7 tablet 02/22/18 Noble-Cath Flush [Noble-Cath Flush 10 ml IVPUSH PRN PRN ml 02/22/18 -] Metoprolol Tartrate [Lopressor -] 25 mg PO BID tablet 02/26/18 Docusate Sodium [Colace] 100 mg PO BID 05/07/18 ASSESSMENT AND PLAN: Patient is a 82 y/o female with a history of anal cancer, afib on eliquis, CHF, and anxiety who presents to the ED from her oncologists office (Dr. Oneil) for tachycardia with chest pain and shortness of breath. # Acute CP r/o ACS, trop. negative x2 sets #Afib with RVR with CHADSVASC 5, cardio on the case. Eliquis is hold due to having with low platelets #Thrombocytopenia Hold Eliquis for now. #Acute CHF exacerbation on LAsix 20mg daily #anxiety: continue xanax .25 mg #nausea continue Zofran, QTC 449 Full code at this time, patient may benefit from Palliative care consult
--- NOTE | 2018-05-08 09:36 | PN ---
Progress Note, Physician Chief Complaint: pT a&oX3; anxious and depressed at weakness and SOB on minimal exertion (e.g. brushing teeth); she says she was "happy go [place]" a year ago, independent, taking the bus on her own, but since chemo/radiation Rx December/Jan she has lost her appetite, lost 30 lbs, and has no energy to do anything. Denies chest pain. History of Present Illness: The patient is an 82-year-old white female (ariel Castellanos) with past medical history Afib, HTN, Anal CA, chronic interstitial lung disease, diastolic CHF, anxiety/depression, presents to the emergency department with chest pressure since January. The patient reports since January shes been having chest pressure since finishing chemo/radiation denies the discomfort radiation to the back. The patient reports associates symptoms of shortness of breath, states shes on O2 at home, unsure how much. Denies urinary complain, cough, nausea, vomiting. Allergies: Sulfa (Sulfonamide abx) Oncologist: Wilberto Oneil MD - Current Medication List Current Medications: Active Medications Alprazolam (Xanax -) 0.25 mg PO BID JAKUB Furosemide (Lasix -) 20 mg PO DAILY JAKUB IV Flush (Noble-Cath Flush) 10 ml IVPUSH PRN PRN PRN Reason: FLUSH Influenza Virus Vaccine Quadrival (Flulaval Quad [id number]) 60 mcg IM .ONCE ONE Stop: 05/08/18 10:01 Megestrol Acetate (Megace Oral Suspension -) 400 mg PO DAILY JAKUB Metoprolol Tartrate (Lopressor -) 25 mg PO BID JAKUB Ondansetron HCl (Zofran Odt -) 8 mg SL Q8H PRN PRN Reason: NAUSEA AND/OR VOMITING - Objective Vital Signs: Vital Signs Temperature 97.8 F 05/08/18 08:39 Pulse Rate 122 H 05/08/18 08:39 Respiratory Rate 20 05/08/18 08:39 Blood Pressure 124/69 05/08/18 08:39 O2 Sat by Pulse Oximetry (%) 95 05/08/18 08:39 Constitutional: Yes: Anxious, Cachectic Eyes: Yes: WNL HENT: Yes: WNL Neck: Yes: WNL Cardiovascular: Yes: S1 (VARIES IN intensity), S2 Respiratory: Yes: Regular Gastrointestinal: Yes: Soft ...Rectal Exam: Yes: Deferred Genitourinary: No: Anuria Breast(s): Yes: WNL Musculoskeletal: Yes: Muscle Weakness Extremities: Yes: Cool Edema: No Peripheral Pulses WNL: Yes Integumentary: Yes: WNL Neurological: Yes: Alert, Oriented, Weakness Psychiatric: Yes: Other (anxeity/depression) Labs: CBC, BMP 05/08/18 05:30 05/08/18 05:30 INR, PTT INR 1.42 (0.83-1.09) H 05/07/18 14:55 - ....Imaging Cat Scan: Image Reviewed (chronic IS lung disease; no definitie PE) Problem List - Problems (1) Anxiety and depression Code(s): F41.9 - ANXIETY DISORDER, UNSPECIFIED; F32.9 - MAJOR DEPRESSIVE DISORDER, SINGLE EPISODE, UNSPECIFIED (2) Thrombocytopenia Assessment/Plan: Platelets 26-->61 F/u with heme-onc. NOAC held. Code(s): D69.6 - THROMBOCYTOPENIA, UNSPECIFIED (3) Anal cancer Code(s): C21.0 - MALIGNANT NEOPLASM OF ANUS, UNSPECIFIED (4) Atrial fibrillation Assessment/Plan: On metoprolol bid for HR control. NOAC held due to low platelets. Replete K+ , and keep 4-4.5 Follow Mg, and keep 2-2.4. Keep P04 2.5-4.9 Code(s): I48.91 - UNSPECIFIED ATRIAL FIBRILLATION Qualifiers: Atrial fibrillation type: unspecified Qualified Code(s): I48.91 - Unspecified atrial fibrillation (5) Diastolic CHF Assessment/Plan: On metoprolol and furosemide. F/u BUn/Cr, electrolytes, daily weight, Is and Os. Code(s): I50.30 - UNSPECIFIED DIASTOLIC (CONGESTIVE) HEART FAILURE (6) Vomiting Code(s): R11.10 - VOMITING, UNSPECIFIED Qualifiers: Vomiting type: unspecified Vomiting Intractability: intractable Nausea presence: with nausea Qualified Code(s): R11.2 - Nausea with vomiting, unspecified (7) Weakness Assessment/Plan: Encourage increased PO intake. Nutritional f/u. Code(s): R53.1 - WEAKNESS
[2018-05-08] MEDS ORDERED: FLU VACCINE QUAD 60 MCG/0.5 ML (MDV 18-19) IM ONE (10:00)
[2018-05-08 10:46] LABS: MAGNESIUM 1.9 mg/dL (1.8-2.4)
[2018-05-08] MEDS: FUROSEMIDE 20 MG TABLET (FP) PO SCH (10:50)
[2018-05-08] MEDS: METOPROLOL TARTRATE 25 MG TABLET (FP) PO SCH ×2 (10:51→21:07)
[2018-05-08] MEDS: ALPRAZolam 0.25 MG TABLET PO SCH ×2 (10:51→21:07)
--- NOTE | 2018-05-08 11:10 | EKG ---
Test Reason : Blood Pressure : / mmHG Vent. Rate : 104 BPM Atrial Rate : 357 BPM P-R Int : 000 ms QRS Dur : 064 ms QT Int : 346 ms P-R-T Axes : 000 027 -07 degrees QTc Int : 454 ms POOR DATA QUALITY, INTERPRETATION MAY BE ADVERSELY AFFECTED ATRIAL FIBRILLATION WITH RAPID VENTRICULAR RESPONSE NONSPECIFIC T WAVE ABNORMALITY ABNORMAL ECG WHEN COMPARED WITH ECG OF 07-MAY-2018 14:10, NO SIGNIFICANT CHANGE WAS FOUND Confirmed by SHAHRAM DC MD ([id number]) on 05/08/2018 11:10:08 AM Referred By: Confirmed By:SHAHRAM DC MD
[2018-05-08] MEDS: MEGESTROL ACETATE 400 MG/10 ML UNIT DOSE CUP PO SCH (12:00)
--- NOTE | 2018-05-08 12:47 | CONSULT ---
Consult Consult Specialty:: Heme/Onc Referred by:: ER Reason for Consultation:: Thrombocytopenia on anticoagulation - History of Present Illness Chief Complaint: low platelets History of Present Illness: 82F with history of anal cancer s/p chemo radiation presents to the hospital sent in by Dr. Oneil for tachycardia. Patient was noted to be in A fib with RVR. She has a history of a fib and has been short of breath for the past couple of weeks. She currently feels well and states all her symptoms have resolved since coming into the hospital. Patient was also noted to be thrombocytopenic on CBC and in the setting of being on eliquid was given platelet transfusion. - History Source History Provided By: Patient, Medical Record Limitations to Obtaining History: Clinical Condition - Past Medical History Cardio/Vascular: Yes: HTN Gastrointestinal: Yes: Diverticulosis, GI Bleed Renal/: Yes: Hematuria Psych: Yes: Anxiety Rheumatology: Yes: Fibromyalgia - Past Surgical History Past Surgical History: Yes: Hysterectomy, Joint Replacement (right knee) - Alcohol/Substance Use Hx Alcohol Use: No History of Substance Use: reports: None - Smoking History Smoking history: Never smoked Have you smoked in the past 12 months: No - Social History Usual Living Arrangement: Alone ADL: Independent 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 Home Medications - Allergies Allergies/Adverse Reactions: Allergies Allergy/AdvReac Type Severity Reaction Status Date / Time Sulfa (Sulfonamide Allergy Verified 05/07/18 19:42 Antibiotics) - Home Medications Home Medications: Ambulatory Orders Alprazolam [Xanax] 0.25 mg PO BID 10/18/17 Ondansetron [Zofran *Odt*] 8 mg PO Q8H PRN 12/31/17 Megestrol Acetate Oral Susp [Megace Oral Suspension -] 400 mg PO DAILY 30 Days # 1 cup 01/05/18 Apixaban [Eliquis -] 2.5 mg PO BID #60 tablet 02/22/18 Furosemide [Lasix -] 20 mg PO DAILY #7 tablet 02/22/18 Noble-Cath Flush [Noble-Cath Flush -] 10 ml IVPUSH PRN PRN ml 02/22/18 Metoprolol Tartrate [Lopressor -] 25 mg PO BID tablet 02/26/18 Docusate Sodium [Colace] 100 mg PO BID 05/07/18 Family Disease History - Family Disease History Family Disease History: CA: Father (leukemia), Sister (breast cancer), Other: Mother (alzheimer) Review of Systems - Review of Systems Constitutional: reports: Malaise Eyes: reports: No Symptoms HENT: reports: No Symptoms Neck: reports: No Symptoms Cardiovascular: reports: Palpitations, Shortness of Breath Respiratory: reports: SOB Gastrointestinal: reports: No Symptoms Genitourinary: reports: No Symptoms Breasts: reports: No Symptoms Reported Musculoskeletal: reports: No Symptoms Integumentary: reports: No Symptoms Endocrine: reports: No Symptoms Physical Exam Vital Signs: Vital Signs Temperature 97.8 F 05/08/18 08:39 Pulse Rate 122 H 05/08/18 08:39 Respiratory Rate 20 05/08/18 08:39 Blood Pressure 124/69 05/08/18 08:39 O2 Sat by Pulse Oximetry (%) 95 05/08/18 08:39 Constitutional: Yes: No Distress, Calm, Thin Eyes: Yes: Conjunctiva Clear, EOM Intact HENT: Yes: Atraumatic, Normocephalic Neck: Yes: Supple, Trachea Midline. No: Lymphadenopathy Cardiovascular: Yes: Pulse Irregular. No: Murmur Respiratory: Yes: Regular, Rhonchi (bilaterally) Gastrointestinal: Yes: Normal Bowel Sounds, Soft. No: Tenderness Renal/: No: CVA Tenderness - Left, CVA Tenderness - Right Edema: Yes (trace nonpitting) Edema: LLE: Trace, RLE: Trace Psychiatric: Yes: Alert, Oriented Labs: CBC, BMP 05/08/18 05:30 05/08/18 05:30 Imaging - Results Chest X-ray: Report Reviewed, Image Reviewed Cat Scan: Report Reviewed, Image Reviewed Assessment/Plan 82F with multiple medical problems presents to the ER at the direction of her oncologist due to tachycardia found to be in A fib with RVR. Hematology/ oncology consulted for history of cancer and being thrombocytopenic in the setting of anticoagulation. Problem List: Anal cancer s/p chemo radiation A fib with RVR on eliquis Thrombocytopenia in the setting of anticoagulation CHF exacerbation shortness of breath chronic interstitial lung disease on home o2 PRN Plan: Patient given 1 unit of monodonor platelets and platelets went from 26k to 61k continue to trend CBC for platelet count continue to hold eliquis in the setting of thrombocytopenia no evidence of bleeding cardiology evaluation rest of management per primary medical team appreciate this consultative opportunity appreciate hospitalist team taking care of Dr. Oneil's patient phoenix horton
--- NOTE | 2018-05-08 15:05 | PN ---
Physical Exam: SUBJECTIVE: Patient seen and examined this morning at bedside. She mentions this is the first time she has felt SOB and Tachycardia. Currently she is on room air and mentions the SOB has resolved; She only experiences it with exertion. Additionally she endorses orthopnea; previously using 2 pillows and currently 3 pillows to sleep at night. Denies any fevers, chills, chest pain, nausea, vomiting diarrhea. OBJECTIVE: Vital Signs Period Temp Pulse Resp BP Sys/Rao Pulse Ox Last 24 Hr 97.6 F-98.2 F 106-122 18-20 90-124/55-74 93-95 GENERAL: A&Ox3, NAD HEAD: NCAT EYES: PERRL, EOMI ENT: Oropharynx clear without exudates, moist mucous membranes. NECK: No JVD LUNGS: Rhonchi b/l HEART: Irregularly, Irregular, No murmur ABDOMEN: Soft, nontender, nondistended, + bowel sounds EXTREMITIES: 2+ pulses, no edema. NEUROLOGICAL: Cranial nerves II through XII grossly intact. Normal speech. Laboratory Results - last 24 hr 05/07/18 05/07/18 05/07/18 14:55 14:55 14:55 WBC 4.7 RBC 3.68 Hgb 12.9 Hct 38.4 MCV 104.5 H MCH 35.2 H MCHC 33.7 RDW 18.3 H Plt Count 26 L* D MPV 11.5 H D Absolute Neuts (auto) 3.6 Neutrophils % 77.7 Lymphocytes % 8.6 D Monocytes % 12.4 H Eosinophils % 0.6 D Basophils % 0.7 Nucleated RBC % 0 Platelet Estimate Decreased Platelet Comment No clumping noted PT with INR 16.80 H INR 1.42 H Sodium 140 Potassium 3.7 Chloride 104 Carbon Dioxide 25 Anion Gap 12 BUN 24 H Creatinine 1.2 Creat Clearance w eGFR 43.23 Random Glucose 137 H Calcium 8.4 L Magnesium Total Bilirubin 0.6 AST 20 ALT 16 Alkaline Phosphatase 54 Creatine Kinase 45 Troponin I < 0.02 B-Natriuretic Peptide Total Protein 6.7 Albumin 2.9 L Blood Type Antibody Screen 05/07/18 05/07/18 05/07/18 14:55 15:00 23:38 WBC RBC Hgb Hct MCV MCH MCHC RDW Plt Count MPV Absolute Neuts (auto) Neutrophils % Lymphocytes % Monocytes % Eosinophils % Basophils % Nucleated RBC % Platelet Estimate Platelet Comment PT with INR INR Sodium Potassium Chloride Carbon Dioxide Anion Gap BUN Creatinine Creat Clearance w eGFR Random Glucose Calcium Magnesium Total Bilirubin AST ALT Alkaline Phosphatase Creatine Kinase Troponin I < 0.02 B-Natriuretic Peptide 2876.1 H Total Protein Albumin Blood Type O POSITIVE Antibody Screen Negative 05/08/18 05/08/18 05:30 05:30 WBC 5.9 RBC 3.24 L Hgb 11.1 Hct 33.7 MCV 104.1 H MCH 34.2 H MCHC 32.9 RDW 17.9 H Plt Count 61 L D MPV 9.7 D Absolute Neuts (auto) 4.8 Neutrophils % 81.4 Lymphocytes % 6.6 L D Monocytes % 10.6 H Eosinophils % 1.1 D Basophils % 0.3 Nucleated RBC % 0 Platelet Estimate Platelet Comment PT with INR INR Sodium 144 Potassium 3.4 L Chloride 106 Carbon Dioxide 27 Anion Gap 11 BUN 19 H Creatinine 0.9 Creat Clearance w eGFR > 60 Random Glucose 78 Calcium 8.3 L Magnesium 1.9 Total Bilirubin 0.7 AST 15 ALT 15 Alkaline Phosphatase 60 Creatine Kinase Troponin I B-Natriuretic Peptide Total Protein 5.9 L Albumin 2.7 L Blood Type Antibody Screen Active Medications Alprazolam (Xanax -) 0.25 mg PO BID [facility] Last Admin: 05/08/18 10:51 Dose: 0.25 mg Furosemide (Lasix -) 20 mg PO DAILY [facility] Last Admin: 05/08/18 10:50 Dose: 20 mg IV Flush (Noble-Cath Flush) 10 ml IVPUSH PRN PRN PRN Reason: FLUSH Megestrol Acetate (Megace Oral Suspension -) 400 mg PO DAILY [facility] Metoprolol Tartrate (Lopressor -) 25 mg PO BID [facility] Last Admin: 05/08/18 10:51 Dose: 25 mg Ondansetron HCl (Zofran Odt -) 8 mg SL Q8H PRN PRN Reason: NAUSEA AND/OR VOMITING IMAGING: -EKG: ATRIAL FIBRILLATION WITH RAPID VENTRICULAR RESPONSE, NONSPECIFIC T WAVE ABNORMALITY, VR 104, QTc 454 -CXR: Since 02/24/2018, the chronic interstitial and nodular changes with some alveolar components, prominent mediastinum and right port persist. -CTA: No definite CT evidence of pulmonary embolism. As on a prior CT exam of there is prominent bilateral interstitial thickening within the upper and lower lung walsh consistent with chronic interstitial lung disease. Possible mildly increased interstitial thickening is seen bilaterally since the prior exam which could be on the basis of additional chronic interstitial changes versus representing superimposed interstitial pneumonitis or interstitial vascular congestion. Clinical/laboratory correlation is suggested. Cardiomegaly is noted as on the prior study. Stable mild mediastinal and bilateral hilar lymphadenopathy is seen which is probably hyperplastic in nature. There has been interval insertion of a right internal jugular venous catheter with the catheter tip at the level of the superior cavoatrial junction. Stable 2.4 cm right adrenal adenoma -ECHO: LV Size, thickness, function are normal. LA moderately dilated, RA mildly dilated. Moderate MR and TR, Mild AR. ASSESSMENT/PLAN: 82 y/o female with PMHx of anal cancer (S/P Chemo and Radiation), Afib (on eliquis), CHF, and anxiety presents to the ED from Dr. Oneil's office for tachycardia and SOB. #Chest Pressure -R/O ACS -Troponin <0.02 X2, EKG Noted above #Tachycardia -Likely due to AFib with RVR (CHADSVASC 5) -Rate still above goal -EKG, Echo noted Noted above -Continue Metoprolol -Elliquis held in the setting of Thrombocytopenia -Cardiology (Dr. Johnston) consulted, Appreciate Rec's #Thrombocytopenia -S/P chemo with hx of thrombocytopenia requiring transfusion in the past -S/P 1 units of platelets given this visit -Hold Elliquis -Trend CBC, Transfuse < 50 k -Hematology (Dr. Oneil) consulted, Appreciate Rec's #SOB -Likely to due Acute CHF Exacerbation 2/2 Afib; Still consider Interstitial Lung disease -BNP: 2876 -Prior Echo (02/15) mild-moderate , EF 65-70; F/U Echo Pending -CXR, CTA Noted above -Continue Lasix -Strict I&Os, Daily weights -Continue Supplemental O2 HS #Hx of Anxiety -Continue home dose Xanax #Nausea -Continue Zofran #FEN -PO Fluids -Will keep K+ 4-4.5, Mg 2-2.4 -Regular Diet #PPx -DVT: Early Ambulation; Elliquis held in the setting of Thrombocytopenia Full code Visit type - Emergency Visit Emergency Visit: Yes ED Registration Date: 05/07/18 Care time: The patient presented to the Emergency Department on the above date and was hospitalized for further evaluation of their emergent condition. - New Patient This patient is new to me today: Yes Date on this admission: 05/08/18 - Critical Care Critical Care patient: No - Discharge Referral Referred to [facility] Med P.C.: No
[2018-05-08] MEDS ORDERED: PT OWN MED DRAWER 7, Y5N ONE (15:55)
--- NOTE | 2018-05-08 16:24 | ECHO ---
Name: HELDERJARRETT Exam:Adult Echocardiogram Study Date: 05/08/2018 03:31 PM Age: 82 yrs Reason For Study: CHF Height: 65 in Weight: 130 lb BSA: 1.6 m2 MMode/2D Measurements & Calculations IVSd: 0.98 cm Ao root diam: 2.5 cm LVIDd: 4.5 cm LA dimension: 4.2 cm LVIDs: 3.2 cm LVPWd: 0.89 cm LVPWs: 1.8 cm EDV(Teich): 94.2 ml ESV(Teich): 40.9 ml LVOT diam: 1.8 cm TAPSE: 2.3 cm Doppler Measurements & Calculations Ao V2 max: 102.6 cm/sec AI max jose luis: 247.1 cm/sec Ao max P.4 mmHg AI max P.6 mmHg AI P1/2t: 409.5 msec AI dec slope: 176.7 cm/sec2 MONTEZ(V,D): 2.1 cm2 LV V1 max P.5 mmHg MR max jose luis: 488.6 cm/sec LV V1 max: 79.1 cm/sec MR max P.6 mmHg TR max jose luis: 235.8 cm/sec PA V2 max: 78.7 cm/sec TR max P.0 mmHg PA max P.5 mmHg Med Peak E' Jose Luis: 6.7 cm/sec Lat Peak E' Jose Luis: 8.3 cm/sec Procedure A complete two-dimensional transthoracic echocardiogram was performed (2D, M-mode, Doppler and color flow Doppler). Left Ventricle The left ventricular size, thickness and function are normal. The left ventricular ejection fraction is normal. Ejection Fraction = 55-60%. The left ventricular wall motion is normal. Right Ventricle The right ventricle is normal in size and function. Atria The left atrium is moderately dilated. The right atrium is mildly dilated. Mitral Valve There is moderate mitral regurgitation. Tricuspid Valve There is moderate tricuspid regurgitation. Right ventricular systolic pressure is normal. Aortic Valve No hemodynamically significant valvular aortic stenosis. Mild aortic regurgitation. Pulmonic Valve Trace pulmonic valvular regurgitation. Great Vessels The aortic root is normal size. Pericardium/Pleura There is no pericardial effusion. Interpretation Summary The left ventricular size, thickness and function are normal The right ventricle is normal in size and function. The left atrium is moderately dilated. The right atrium is mildly dilated. There is moderate mitral regurgitation. There is moderate tricuspid regurgitation. Mild aortic regurgitation. Trace pulmonic valvular regurgitation. MD Len Blanca 05/08/2018 04:24 PM
--- NOTE | 2018-05-08 23:45 | PN ---
Progress Note (short form) - Note Progress Note: 82F with history of anal cancer s/p chemo radiation presents to the hospital sent in by Dr. Oneil for tachycardia. Patient was noted to be in A fib with RVR. She has a history of a fib and has been short of breath for the past couple of weeks. She currently feels well and states all her symptoms have resolved since coming into the hospital. Patient was also noted to be thrombocytopenic on CBC and in the setting of being on eliquis was given platelet transfusion. 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 Home Medications - Allergies Allergies/Adverse Reactions: Allergies Allergy/AdvReac Type Severity Reaction Status Date / Time Sulfa (Sulfonamide Allergy Verified 05/07/18 19:42 Antibiotics) - Home Medications Home Medications: Ambulatory Orders Alprazolam [Xanax] 0.25 mg PO BID 10/18/17 Ondansetron [Zofran *Odt*] 8 mg PO Q8H PRN 12/31/17 Megestrol Acetate Oral Susp [Megace Oral Suspension -] 400 mg PO DAILY 30 Days # 1 cup 01/05/18 Apixaban [Eliquis -] 2.5 mg PO BID #60 tablet 02/22/18 Furosemide [Lasix -] 20 mg PO DAILY #7 tablet 02/22/18 Noble-Cath Flush [Noble-Cath Flush -] 10 ml IVPUSH PRN PRN ml 02/22/18 Metoprolol Tartrate [Lopressor -] 25 mg PO BID tablet 02/26/18 Docusate Sodium [Colace] 100 mg PO BID 05/07/18 Family Disease History - Family Disease History Family Disease History: CA: Father (leukemia), Sister (breast cancer), Other: Mother (alzheimer) Physical Exam Vital Signs: Vital Signs Temperature 97.8 F 05/08/18 08:39 Pulse Rate 122 H 05/08/18 08:39 Respiratory Rate 20 05/08/18 08:39 Blood Pressure 124/69 05/08/18 08:39 O2 Sat by Pulse Oximetry (%) 95 05/08/18 08:39 Cardiovascular: Yes: Pulse Irregular. No: Murmur Respiratory: Yes: Regular, Rhonchi (bilaterally) Gastrointestinal: Yes: Normal Bowel Sounds, Soft. No: Tenderness Edema: LLE: Trace, RLE: Trace Psychiatric: Yes: Alert, Oriented Labs: CBC, BMP 05/08/18 05:30 05/08/18 05:30 Imaging - Results Chest X-ray: Report Reviewed, Image Reviewed Cat Scan: Report Reviewed, Image Reviewed Assessment/Plan 82F with multiple medical problems presents to the ER at the direction of her oncologist due to tachycardia found to be in A fib with RVR. Hematology/ oncology consulted for history of cancer and being thrombocytopenic in the setting of anticoagulation. Problem List: Anal cancer s/p chemo radiation A fib with RVR on eliquis Thrombocytopenia -- r/o occult infection ? decreased marrow reserve post recent chemo/RT CHF exacerbation shortness of breath chronic interstitial lung disease on home o2 PRN Plan: Patient given 1 unit of monodonor platelets and platelets went from 26k to 61k will check cultures will discuss with cardiology
[2018-05-09 07:34] LABS: BASO % 0.8 % (0-2.0); LYMPH % 15.2 % (8-40); MCH 34.3 pg (25.7-33.7); MCHC 33.4 g/dl (32.0-36.0); MEAN CELL VOLUME 102.7 fl (80-96); MEAN PLT VOLUME 10.7 fl (7.5-11.1); MONO % 15.4 % (3.8-10.2); NEUT % 66.6 % (42.8-82.8); PLATELET COUNT 39 K/MM3 (134-434); RBC 3.21 M/mm3 (3.60-5.2); RDW 17.4 % (11.6-15.6)
[2018-05-09 08:13] LABS: ALBUMIN 2.6 g/dl (3.4-5.0); ALK PHOS 62 U/L (45-117); ANION GAP 10 MMOL/L (8-16); BILIRUBIN,TOTAL 0.8 mg/dL (0.2-1); BLOOD UREA NITROGEN 17 mg/dL (7-18); CALCIUM 7.9 mg/dL (8.5-10.1); CHLORIDE 105 mmol/L (98-107); CO2 25 mmol/L (21-32); CREATININE 0.9 mg/dL (0.55-1.3); GLUCOSE,RANDOM 82 mg/dL (74-106); POTASSIUM 3.1 mmol/L (3.5-5.1); SGOT/AST 15 U/L (15-37); SGPT/ALT 14 U/L (13-61); SODIUM 140 mmol/L (136-145); TOT PROT 5.8 g/dl (6.4-8.2)
[2018-05-09] MEDS ORDERED: POTASSIUM CHLORIDE TABS 20 MEQ TABLET.ER (FP) PO ONE (08:31)
--- NOTE | 2018-05-09 08:44 | PN ---
Physical Exam: SUBJECTIVE: Patient seen and examined this morning at bedside. She did not use supplemental O2 overnight and did not feel SOB. She feels her tachycardia has improved and denies any palpitations or chest pain. She was able to ambulate to the restroom overnight without difficulty. Denies any fevers, chills, nausea or vomiting. OBJECTIVE: Vital Signs Period Temp Pulse Resp BP Sys/Rao Pulse Ox Last 24 Hr 97.6 F-99.1 F 106-124 18-20 90-124/52-69 95-95 GENERAL: A&Ox3, NAD HEAD: NCAT EYES: PERRL, EOMI ENT: Oropharynx clear without exudates, moist mucous membranes. NECK: No JVD LUNGS: Bibasilar Rhonchi, Wheezing HEART: Irregularly, Irregular, No murmur ABDOMEN: Soft, nontender, nondistended, + bowel sounds EXTREMITIES: 2+ pulses, no edema. NEUROLOGICAL: Cranial nerves II through XII grossly intact. Normal speech. Laboratory Results - last 24 hr 05/08/18 05/09/18 05/09/18 05:30 05:30 05:30 WBC 4.0 RBC 3.21 L Hgb 11.0 Hct 33.0 MCV 102.7 H MCH 34.3 H MCHC 33.4 RDW 17.4 H Plt Count 39 L D MPV 10.7 D Absolute Neuts (auto) 2.7 Neutrophils % 66.6 Lymphocytes % 15.2 D Monocytes % 15.4 H Eosinophils % 2.0 D Basophils % 0.8 Nucleated RBC % 0 Sodium 144 140 Potassium 3.4 L 3.1 L Chloride 106 105 Carbon Dioxide 27 25 Anion Gap 11 10 BUN 19 H 17 Creatinine 0.9 0.9 Creat Clearance w eGFR > 60 > 60 Random Glucose 78 82 Calcium 8.3 L 7.9 L Phosphorus 3.0 Magnesium 1.9 2.0 Total Bilirubin 0.7 0.8 AST 15 15 ALT 15 14 Alkaline Phosphatase 60 62 Total Protein 5.9 L 5.8 L Albumin 2.7 L 2.6 L Active Medications Alprazolam (Xanax -) 0.25 mg PO BID [facility] Last Admin: 05/08/18 21:07 Dose: 0.25 mg Docusate Sodium (Colace -) 100 mg PO BID [facility] Furosemide (Lasix -) 20 mg PO DAILY [facility] Last Admin: 05/08/18 10:50 Dose: 20 mg IV Flush (Noble-Cath Flush) 10 ml IVPUSH PRN PRN PRN Reason: FLUSH Megestrol Acetate (Megace Oral Suspension -) 400 mg PO DAILY [facility] Last Admin: 05/08/18 12:00 Dose: 400 mg Metoprolol Tartrate (Lopressor -) 25 mg PO BID [facility] Last Admin: 05/08/18 21:07 Dose: 25 mg Ondansetron HCl (Zofran Odt -) 8 mg SL Q8H PRN PRN Reason: NAUSEA AND/OR VOMITING Pantoprazole Sodium (Protonix -) mg PO DAILY [facility] Sucralfate (Carafate Oral Suspension -) 1 gm PO QID [facility] IMAGING: -EKG: ATRIAL FIBRILLATION WITH RAPID VENTRICULAR RESPONSE, NONSPECIFIC T WAVE ABNORMALITY, VR 104, QTc 454 -CXR: Since 02/24/2018, the chronic interstitial and nodular changes with some alveolar components, prominent mediastinum and right port persist. -CTA: No definite CT evidence of pulmonary embolism. As on a prior CT exam of there is prominent bilateral interstitial thickening within the upper and lower lung walsh consistent with chronic interstitial lung disease. Possible mildly increased interstitial thickening is seen bilaterally since the prior exam which could be on the basis of additional chronic interstitial changes versus representing superimposed interstitial pneumonitis or interstitial vascular congestion. Clinical/laboratory correlation is suggested. Cardiomegaly is noted as on the prior study. Stable mild mediastinal and bilateral hilar lymphadenopathy is seen which is probably hyperplastic in nature. There has been interval insertion of a right internal jugular venous catheter with the catheter tip at the level of the superior cavoatrial junction. Stable 2.4 cm right adrenal adenoma -ECHO: LV Size, thickness, function are normal. LA moderately dilated, RA mildly dilated. Moderate MR and TR, Mild AR. ASSESSMENT/PLAN: 82 y/o female with PMHx of anal cancer (S/P Chemo and Radiation), Afib (on eliquis), CHF, and anxiety presents to the ED from Dr. Oneil's office for tachycardia and SOB. #Thrombocytopenia -S/P chemo with hx of thrombocytopenia requiring transfusion in the past -S/P 1 units of platelets given this visit -Continue to Hold Elliquis, PLT count this am dropped to 39 -Hematology (Dr. Oneil) consulted, Appreciate Rec's #Tachycardia -Likely due to AFib with RVR (CHADSVASC 5) -Rate still above goal -EKG, Echo noted Noted above -Continue Metoprolol -Elliquis held in the setting of Thrombocytopenia -Cardiology (Dr. Johnston) consulted, Appreciate Rec's #Hypokalemia -Repleted this am, Continue to monitor -Will keep K+ at 4-4.5 #SOB -Likely to due Acute CHF Exacerbation 2/2 Afib; Still consider Interstitial Lung disease -BNP: 2876 -ECHO, CXR, CTA Noted above -Continue Lasix -Strict I&Os, Daily weights -Continue Supplemental O2 HS #Chest Pressure -R/O ACS -Troponin <0.02 X2, EKG Noted above #Hx of Anxiety -Continue home dose Xanax #Nausea -Continue Zofran #FEN -PO Fluids -Will keep K+ 4-4.5, Mg 2-2.4 -Regular Diet #PPx -DVT: Early Ambulation; Elliquis held in the setting of Thrombocytopenia Full code Visit type - Emergency Visit Emergency Visit: Yes ED Registration Date: 05/07/18 Care time: The patient presented to the Emergency Department on the above date and was hospitalized for further evaluation of their emergent condition. - New Patient This patient is new to me today: No - Critical Care Critical Care patient: No - Discharge Referral Referred to [facility] Med P.C.: No
[2018-05-09] MEDS: SUCRALFATE 1 GM/10 ML UNIT DOSE CUPS PO SCH ×4 (09:40→21:59)
[2018-05-09] MEDS: ALPRAZolam 0.25 MG TABLET PO SCH ×2 (09:41→21:59)
[2018-05-09] MEDS: PANTOPRAZOLE 40 MG TABLET (FP) PO SCH (09:41)
[2018-05-09] MEDS: DOCUSATE SODIUM 100 MG CAPSULE (FP) PO SCH ×2 (09:41→21:59)
[2018-05-09] MEDS: FUROSEMIDE 20 MG TABLET (FP) PO SCH (09:41)
[2018-05-09] MEDS: METOPROLOL TARTRATE 25 MG TABLET (FP) PO SCH ×2 (09:41→21:59)
[2018-05-09] MEDS: MEGESTROL ACETATE 400 MG/10 ML UNIT DOSE CUP PO SCH (09:41)
[2018-05-09 09:53] LABS: URINE APPEARANCE CLEAR; URINE BILIRUBIN NEGATIVE (<2.0 mg/dL); URINE COLOR DKYELLOW; URINE GLUCOSE (UA) NEGATIVE (NEGATIVE); URINE KETONE NEGATIVE (NEGATIVE); URINE LEUK ESTERASE TRACE (NEGATIVE); URINE NITRITE NEGATIVE (NEGATIVE); URINE PROTEIN 1+ (NEGATIVE); URINE UROBILINOGEN 4.0 E.U/dl mg/dL (0.2-1.0)
[2018-05-09 10:19] LABS: EPI CELLS RARE /HPF (FEW); URINE HYALINE CAST 3 /lpf; URINE MUCUS RARE
--- NOTE | 2018-05-09 13:54 | EKG ---
Test Reason : Blood Pressure : / mmHG Vent. Rate : 113 BPM Atrial Rate : 094 BPM P-R Int : 000 ms QRS Dur : 072 ms QT Int : 328 ms P-R-T Axes : 000 041 -56 degrees QTc Int : 449 ms ATRIAL FIBRILLATION WITH RAPID VENTRICULAR RESPONSE NONSPECIFIC T WAVE ABNORMALITY ABNORMAL ECG Confirmed by SILAS LUBIN MD ([id number]) on 05/09/2018 1:53:48 PM Referred By: Confirmed By:SILAS LUBIN MD
[2018-05-09] MEDS ORDERED: PT OWN MED DRAWER 7, Y5N ONE (17:00)
--- NOTE | 2018-05-09 17:48 | PN ---
Progress Note (short form) - Note Progress Note: Patient seen and examined Still with chest pressure Last Vital Signs Temp Pulse Resp BP Pulse Ox 97.6 F 108 H 20 116/50 L 95 05/09/18 14:00 05/09/18 14:00 05/09/18 14:00 05/09/18 14:00 05/09/18 09:00 HEENT: LAISHA, EOM Intact Oropharynx: No thrush, No mucositis Cor: irregular Lungs: coarse rales Abd: Soft, Normal bowel sounds, No organomegaly Ext:No significant edema Skin: No rashes, Integument intact CBC, BMP 05/09/18 05:30 05/09/18 05:30 Current Medications Generic Name Dose Route Start Last Admin Trade Name Freq PRN Reason Stop Dose Admin Alprazolam 0.25 mg 05/08/18 10:00 05/09/18 09:41 Xanax - PO 0.25 mg BID JAKUB Administration Docusate Sodium 100 mg 05/09/18 10:00 05/09/18 09:41 Colace - PO 100 mg BID JAKUB Administration Furosemide 20 mg 05/08/18 10:00 05/09/18 09:41 Lasix - PO 20 mg DAILY JAKUB Administration IV Flush 10 ml 05/07/18 23:41 Noble-Cath Flush IVPUSH PRN PRN FLUSH Megestrol Acetate 400 mg 05/08/18 10:00 05/09/18 09:41 Megace Oral Suspension - PO 400 mg DAILY JAKUB Administration Metoprolol Tartrate 25 mg 05/08/18 10:00 05/09/18 09:41 Lopressor - PO 25 mg BID JAKUB Administration Ondansetron HCl 8 mg 05/07/18 23:41 Zofran Odt - SL Q8H PRN NAUSEA AND/OR VOMITING Pantoprazole Sodium 40 mg 05/09/18 10:00 05/09/18 09:41 Protonix - PO 40 mg DAILY JAKUB Administration Potassium Chloride 20 meq 05/09/18 22:00 K-Dur - PO 05/11/18 21:59 BID JAKUB Sucralfate 1 gm 05/09/18 10:00 05/09/18 17:12 Carafate Oral Suspension - PO 1 gm QID JAKUB Administration Impression Atrial fibrillation Thrombocytopenia Hx of Anal ca Atypical chest pain Plan: Etiology of thrombocytoenia unclear Needs anti-platelet antibodies Routine screening ? occult infection Hold eliquis
--- NOTE | 2018-05-09 19:32 | PN ---
Progress Note, Physician Chief Complaint: Pt A&Ox3; OOB in chair, eating breakast, including egg sandwich, brought by her long-time friend, who is present. Pt's mood has improved; she is more animated and shares stories about her friend. Denies chest pressure or dyspnea; still weak on mild exertion. History of Present Illness: The patient is an 82-year-old white female (ariel Castellanos) with past medical history Afib, HTN, Anal CA, chronic interstitial lung disease, diastolic CHF, anxiety/depression, presents to the emergency department with chest pressure since January. The patient reports since January shes been having chest pressure since finishing chemo/radiation denies the discomfort radiation to the back. The patient reports associates symptoms of shortness of breath, states shes on O2 at home, unsure how much. Denies urinary complain, cough, nausea, vomiting. Allergies: Sulfa (Sulfonamide abx) Oncologist: Wilberto Oneil MD - Current Medication List Current Medications: Active Medications Alprazolam (Xanax -) 0.25 mg PO BID [facility] Last Admin: 05/09/18 09:41 Dose: 0.25 mg Docusate Sodium (Colace -) 100 mg PO BID [facility] Last Admin: 05/09/18 09:41 Dose: 100 mg Furosemide (Lasix -) 20 mg PO DAILY [facility] Last Admin: 05/09/18 09:41 Dose: 20 mg IV Flush (Noble-Cath Flush) 10 ml IVPUSH PRN PRN PRN Reason: FLUSH Megestrol Acetate (Megace Oral Suspension -) 400 mg PO DAILY [facility] Last Admin: 05/09/18 09:41 Dose: 400 mg Metoprolol Tartrate (Lopressor -) 25 mg PO BID [facility] Last Admin: 05/09/18 09:41 Dose: 25 mg Ondansetron HCl (Zofran Odt -) 8 mg SL Q8H PRN PRN Reason: NAUSEA AND/OR VOMITING Pantoprazole Sodium (Protonix -) 40 mg PO DAILY [facility] Last Admin: 05/09/18 09:41 Dose: 40 mg Potassium Chloride (K-Dur -) 20 meq PO BID [facility] Stop: 05/11/18 21:59 Sucralfate (Carafate Oral Suspension -) 1 gm PO QID [facility] Last Admin: 05/09/18 17:12 Dose: 1 gm - Objective Vital Signs: Vital Signs Temperature 97.3 F L 05/09/18 18:00 Pulse Rate 121 H 05/09/18 18:00 Respiratory Rate 20 05/09/18 18:00 Blood Pressure 102/58 L 05/09/18 18:00 O2 Sat by Pulse Oximetry (%) 95 05/09/18 09:00 Constitutional: Yes: Calm Eyes: Yes: WNL HENT: Yes: WNL Neck: Yes: WNL Cardiovascular: Yes: Pulse Irregular Respiratory: Yes: Regular Gastrointestinal: Yes: Soft ...Rectal Exam: Yes: Deferred Genitourinary: No: Anuria Breast(s): Yes: WNL Musculoskeletal: Yes: Muscle Weakness Extremities: Yes: Cool Edema: No Peripheral Pulses WNL: Yes Integumentary: Yes: WNL Neurological: Yes: Alert, Oriented, Weakness Psychiatric: Yes: Alert, Oriented Labs: CBC, BMP 05/09/18 05:30 05/09/18 05:30 INR, PTT INR 1.42 (0.83-1.09) H 05/07/18 14:55 Abnormal Lab Results 05/09/18 05/09/18 05/09/18 05:30 05:30 09:15 RBC 3.21 L MCV 102.7 H MCH 34.3 H RDW 17.4 H Plt Count 39 L D Monocytes % 15.4 H Potassium 3.1 L Calcium 7.9 L Total Protein 5.8 L Albumin 2.6 L Urine Protein 1+ H Urine Urobilinogen 4.0 e.u/dl H - ....Imaging Other: Image Reviewed (telemetry: AF; periods of RVR) Problem List - Problems (1) Anxiety and depression Code(s): F41.9 - ANXIETY DISORDER, UNSPECIFIED; F32.9 - MAJOR DEPRESSIVE DISORDER, SINGLE EPISODE, UNSPECIFIED (2) Thrombocytopenia Assessment/Plan: Platelets 26-->61-->39. F/u with heme-onc. NOAC (being given for AF) held. Code(s): D69.6 - THROMBOCYTOPENIA, UNSPECIFIED (3) Anal cancer Code(s): C21.0 - MALIGNANT NEOPLASM OF ANUS, UNSPECIFIED (4) Atrial fibrillation Assessment/Plan: On metoprolol bid for HR control; consider increase to q8h for better HR control. TSH WNL; afebrile. NOAC held due to low platelets. Replete K+ again , and keep 4-4.5 Follow Mg, and keep 2-2.4 (wnl presently). Keep P04 2.5-4.9 Code(s): I48.91 - UNSPECIFIED ATRIAL FIBRILLATION Qualifiers: Atrial fibrillation type: unspecified Qualified Code(s): I48.91 - Unspecified atrial fibrillation (5) Diastolic CHF Assessment/Plan: On metoprolol and furosemide. F/u BUn/Cr, electrolytes, daily weight, Is and Os. Code(s): I50.30 - UNSPECIFIED DIASTOLIC (CONGESTIVE) HEART FAILURE (6) Vomiting Code(s): R11.10 - VOMITING, UNSPECIFIED Qualifiers: Vomiting type: unspecified Vomiting Intractability: intractable Nausea presence: with nausea Qualified Code(s): R11.2 - Nausea with vomiting, unspecified (7) Weakness Assessment/Plan: Encourage increased PO intake. Nutritional f/u. Code(s): R53.1 - WEAKNESS
--- NOTE | 2018-05-09 20:31 | PN ---
Teaching Attending Note Name of Resident: Wendy Perry ATTENDING PHYSICIAN STATEMENT I saw and evaluated the patient. I reviewed the resident's note and discussed the case with the resident. I agree with the resident's findings and plan as documented. SUBJECTIVE: Patient is feeling better with no acute distress. OBJECTIVE: Vital Signs Temperature 97.7 F 05/09/18 20:25 Pulse Rate 108 H 05/09/18 20:25 Respiratory Rate 20 05/09/18 20:25 Blood Pressure 110/78 05/09/18 20:25 O2 Sat by Pulse Oximetry (%) 95 05/09/18 20:25 GENERAL: Awake, alert, and fully oriented, in no acute distress. HEAD: Normal with no signs of trauma. EYES: Pupils equal, round and reactive to light, extraocular movements intact. EARS, NOSE, THROAT: Moist mucous membranes. LUNGS: poor indicatory effort No wheezes, and no crackles. No accessory muscle use. HEART: irregularly irregular with RVR rate of 122. ABDOMEN: Soft, nontender, ND, positive BS, no guarding, no rebound, no masses. EXTREMITIES: 2+ pulses, warm, well-perfused. No calf tenderness. No peripheral edema. NEUROLOGICAL: Cranial nerves II-XII intact. Normal speech. PSYCHIATRIC: Cooperative. Good eye contact. Appropriate mood and affect. SKIN: Warm, dry, normal turgor, no rashes or lesions noted, normal capillary refill. CBCD WBC 4.0 K/mm3 (4.0-10.0) 05/09/18 05:30 RBC 3.21 M/mm3 (3.60-5.2) L 05/09/18 05:30 Hgb 11.0 GM/dL (10.7-15.3) 05/09/18 05:30 Hct 33.0 % (32.4-45.2) 05/09/18 05:30 MCV 102.7 fl (80-96) H 05/09/18 05:30 MCHC 33.4 g/dl (32.0-36.0) 05/09/18 05:30 RDW 17.4 % (11.6-15.6) H 05/09/18 05:30 Plt Count 39 K/MM3 (134-434) L D 05/09/18 05:30 MPV 10.7 fl (7.5-11.1) D 05/09/18 05:30 CMP Sodium 140 mmol/L (136-145) 05/09/18 05:30 Potassium 3.1 mmol/L (3.5-5.1) L 05/09/18 05:30 Chloride 105 mmol/L (98-107) 05/09/18 05:30 Carbon Dioxide 25 mmol/L (21-32) 05/09/18 05:30 Anion Gap 10 MMOL/L (8-16) 05/09/18 05:30 BUN 17 mg/dL (7-18) 05/09/18 05:30 Creatinine 0.9 mg/dL (0.55-1.3) 05/09/18 05:30 Creat Clearance w eGFR > 60 (>60) 05/09/18 05:30 Random Glucose 82 mg/dL (74-106) 05/09/18 05:30 Calcium 7.9 mg/dL (8.5-10.1) L 05/09/18 05:30 Total Bilirubin 0.8 mg/dL (0.2-1) 05/09/18 05:30 AST 15 U/L (15-37) 05/09/18 05:30 ALT 14 U/L (13-61) 05/09/18 05:30 Alkaline Phosphatase 62 U/L (45-117) 05/09/18 05:30 Total Protein 5.8 g/dl (6.4-8.2) L 05/09/18 05:30 Albumin 2.6 g/dl (3.4-5.0) L 05/09/18 05:30 CARDIAC ENZYMES Creatine Kinase 45 IU/L (26-192) 05/07/18 14:55 Troponin I < 0.02 ng/ml (0.00-0.05) 05/07/18 23:38 Current Medications Generic Name Dose Route Start Last Admin Trade Name Freq PRN Reason Stop Dose Admin Alprazolam 0.25 mg 05/08/18 10:00 05/09/18 09:41 Xanax - PO 0.25 mg BID JAKUB Administration Docusate Sodium 100 mg 05/09/18 10:00 05/09/18 09:41 Colace - PO 100 mg BID JAKUB Administration Furosemide 20 mg 05/08/18 10:00 05/09/18 09:41 Lasix - PO 20 mg DAILY JAKUB Administration IV Flush 10 ml 05/07/18 23:41 Noble-Cath Flush IVPUSH PRN PRN FLUSH Megestrol Acetate 400 mg 05/08/18 10:00 05/09/18 09:41 Megace Oral Suspension - PO 400 mg DAILY JAKUB Administration Metoprolol Tartrate 25 mg 05/08/18 10:00 05/09/18 09:41 Lopressor - PO 25 mg BID JAKUB Administration Ondansetron HCl 8 mg 05/07/18 23:41 Zofran Odt - SL Q8H PRN NAUSEA AND/OR VOMITING Pantoprazole Sodium 40 mg 05/09/18 10:00 05/09/18 09:41 Protonix - PO 40 mg DAILY JAKUB Administration Potassium Chloride 20 meq 05/09/18 22:00 K-Dur - PO 05/11/18 21:59 BID [facility] Sucralfate 1 gm 05/09/18 10:00 05/09/18 17:12 Carafate Oral Suspension - PO 1 gm QID JAKUB Administration Home Medications Medication Instructions Recorded Alprazolam [Xanax] 0.25 mg PO TID PRN MDD 0.75 10/18/17 Ondansetron [Zofran *Odt*] 8 mg PO Q8H PRN 12/31/17 Megestrol Acetate Oral Susp 400 mg PO DAILY 30 Days #1 cup 01/05/18 [Megace Oral Suspension -] Apixaban [Eliquis -] 2.5 mg PO BID #60 tablet 02/22/18 Furosemide [Lasix -] 20 mg PO DAILY #7 tablet 02/22/18 Noble-Cath Flush [Noble-Cath Flush 10 ml IVPUSH PRN PRN ml 02/22/18 -] Metoprolol Tartrate [Lopressor -] 25 mg PO BID tablet 02/26/18 Docusate Sodium [Colace] 100 mg PO BID 05/07/18 Albuterol 0.083% Nebulizer Ela 1 vial NEB Q6H 05/08/18 [Ventolin 0.083% Nebulizer Soln -] Megestrol Acetate 1 tab PO DAILY 05/08/18 Pantoprazole Sodium 1 tab PO DAILY 05/08/18 Sucralfate [Carafate] 10 ml PO QID 05/08/18 ASSESSMENT AND PLAN: Patient is a 82 y/o female with a history of anal cancer, afib on eliquis, CHF, and anxiety who presents to the ED from her oncologists office (Dr. Oneil) for tachycardia with chest pain and shortness of breath. # Acute CP , ACS is rulled out, 2 sets of trops. are negative x2 sets #Afib with RVR with CHADSVASC 5, cardio on the case. Eliquis is hold due to having with low platelets #Thrombocytopenia Hold Eliquis for now, Hem/onc appreciated #Acute CHF exacerbation on LAsix 20mg daily #anxiety: continue xanax .25 mg #nausea continue Zofran, QTC 449 Full code at this time, patient may benefit from Palliative care consult
[2018-05-09 21:01] LABS: URINE APPEARANCE CLEAR; URINE BILIRUBIN NEGATIVE (<2.0 mg/dL); URINE COLOR DKYELLOW; URINE GLUCOSE (UA) NEGATIVE (NEGATIVE); URINE KETONE NEGATIVE (NEGATIVE); URINE LEUK ESTERASE 3+ (NEGATIVE); URINE NITRITE NEGATIVE (NEGATIVE); URINE PROTEIN NEGATIVE (NEGATIVE); URINE UROBILINOGEN 4.0 E.U/dl mg/dL (0.2-1.0)
[2018-05-09 21:03] LABS: CALCIUM OXALATE CRYSTALS RARE /hpf (NONE SEEN); EPI CELLS RARE /HPF (FEW); URINE MUCUS RARE
[2018-05-09] MEDS: POTASSIUM CHLORIDE TABS 20 MEQ TABLET.ER (FP) PO SCH (21:59)
[2018-05-10 08:41] LABS: ALBUMIN 2.8 g/dl (3.4-5.0); ALK PHOS 61 U/L (45-117); ANION GAP 8 MMOL/L (8-16); BILIRUBIN,TOTAL 0.6 mg/dL (0.2-1); BLOOD UREA NITROGEN 19 mg/dL (7-18); CALCIUM 8.1 mg/dL (8.5-10.1); CHLORIDE 106 mmol/L (98-107); CO2 25 mmol/L (21-32); CREATININE 1.1 mg/dL (0.55-1.3); GLUCOSE,RANDOM 85 mg/dL (74-106); POTASSIUM 3.8 mmol/L (3.5-5.1); SGOT/AST 16 U/L (15-37); SGPT/ALT 14 U/L (13-61); SODIUM 139 mmol/L (136-145); TOT PROT 6.4 g/dl (6.4-8.2)
--- NOTE | 2018-05-10 08:59 | PN ---
Progress Note, Physician History of Present Illness: Pt is an 82yo f with PMH of anal cancer, Afib (on Eliquis), CHF presenting to ED with complaints of chest pressure x3 months since January. Pt has had chemotherapy and RT for anal cancer and states she has been feeling a chest pressure since then. It is associated with SOB (pt is on oxygen at home, does not know how much). Pt says pressure is there when she wakes up and does not go away. She denies fever, chills, cough, n/v, headaches, neck pain, lightheadedness. Admits to loss of appetite and fatigue. - Current Medication List Current Medications: Active Medications Alprazolam (Xanax -) 0.25 mg PO BID [facility] Last Admin: 05/09/18 21:59 Dose: 0.25 mg Docusate Sodium (Colace -) 100 mg PO BID [facility] Last Admin: 05/09/18 21:59 Dose: 100 mg Furosemide (Lasix -) 20 mg PO DAILY [facility] Last Admin: 05/09/18 09:41 Dose: 20 mg IV Flush (Noble-Cath Flush) 10 ml IVPUSH PRN PRN PRN Reason: FLUSH Megestrol Acetate (Megace Oral Suspension -) 400 mg PO DAILY [facility] Last Admin: 05/09/18 09:41 Dose: 400 mg Metoprolol Tartrate (Lopressor -) 25 mg PO BID [facility] Last Admin: 05/09/18 21:59 Dose: 25 mg Ondansetron HCl (Zofran Odt -) 8 mg SL Q8H PRN PRN Reason: NAUSEA AND/OR VOMITING Pantoprazole Sodium (Protonix -) 40 mg PO DAILY [facility] Last Admin: 05/09/18 09:41 Dose: 40 mg Potassium Chloride (K-Dur -) 20 meq PO BID [facility] Stop: 05/11/18 21:59 Last Admin: 05/09/18 21:59 Dose: 20 meq Sucralfate (Carafate Oral Suspension -) 1 gm PO QID [facility] Last Admin: 05/09/18 21:59 Dose: 1 gm - Objective Vital Signs: Vital Signs Temperature 98.3 F 05/10/18 06:00 Pulse Rate 106 H 05/10/18 06:00 Respiratory Rate 20 05/10/18 06:00 Blood Pressure 103/61 05/10/18 06:00 O2 Sat by Pulse Oximetry (%) 95 05/09/18 21:00 Eyes: Yes: WNL, Conjunctiva Clear, EOM Intact HENT: Yes: WNL, Atraumatic, Normocephalic Neck: Yes: WNL, Supple, Trachea Midline Cardiovascular: Yes: WNL, Regular Rate and Rhythm Respiratory: Yes: WNL, Regular, CTA Bilaterally Gastrointestinal: Yes: WNL, Normal Bowel Sounds Genitourinary: Yes: WNL Musculoskeletal: Yes: WNL Extremities: Yes: WNL Edema: No Integumentary: Yes: WNL Neurological: Yes: WNL, Alert, Oriented ...Motor Strength: WNL Psychiatric: Yes: WNL Labs: CBC, BMP 05/10/18 06:50 INR, PTT INR 1.42 (0.83-1.09) H 05/07/18 14:55 Assessment/Plan Problems (1) Anxiety and depression Code(s): F41.9 - ANXIETY DISORDER, UNSPECIFIED; F32.9 - MAJOR DEPRESSIVE DISORDER, SINGLE EPISODE, UNSPECIFIED (2) Thrombocytopenia Assessment/Plan: Platelets 26-->61-->39. F/u with heme-onc. NOAC (being given for AF) held. Code(s): D69.6 - THROMBOCYTOPENIA, UNSPECIFIED (3) Anal cancer Code(s): C21.0 - MALIGNANT NEOPLASM OF ANUS, UNSPECIFIED (4) Atrial fibrillation Assessment/Plan: On metoprolol bid for HR control; consider increase to q8h for better HR control. TSH WNL; afebrile. NOAC held due to low platelets. Replete K+ again , and keep 4-4.5 Follow Mg, and keep 2-2.4 (wnl presently). Keep P04 2.5-4.9 Code(s): I48.91 - UNSPECIFIED ATRIAL FIBRILLATION Qualifiers: Atrial fibrillation type: unspecified Qualified Code(s): I48.91 - Unspecified atrial fibrillation (5) Diastolic CHF Assessment/Plan: On metoprolol and furosemide. F/u BUn/Cr, electrolytes, daily weight, Is and Os. Code(s): I50.30 - UNSPECIFIED DIASTOLIC (CONGESTIVE) HEART FAILURE (6) Vomiting Code(s): R11.10 - VOMITING, UNSPECIFIED Qualifiers: Vomiting type: unspecified Vomiting Intractability: intractable Nausea presence: with nausea Qualified Code(s): R11.2 - Nausea with vomiting, unspecified (7) Weakness Assessment/Plan: Encourage increased PO intake. Nutritional f/u. Code(s): R53.1 - WEAKNESS
[2018-05-10] MEDS: ALPRAZolam 0.25 MG TABLET PO SCH ×2 (09:23→21:27)
[2018-05-10] MEDS: FUROSEMIDE 20 MG TABLET (FP) PO SCH (09:23)
[2018-05-10] MEDS: DOCUSATE SODIUM 100 MG CAPSULE (FP) PO SCH ×2 (09:23→21:27)
[2018-05-10] MEDS: POTASSIUM CHLORIDE TABS 20 MEQ TABLET.ER (FP) PO SCH ×2 (09:24→21:27)
[2018-05-10] MEDS: METOPROLOL TARTRATE 25 MG TABLET (FP) PO SCH ×2 (09:24→21:27)
[2018-05-10] MEDS: MEGESTROL ACETATE 400 MG/10 ML UNIT DOSE CUP PO SCH (09:24)
[2018-05-10] MEDS: SUCRALFATE 1 GM/10 ML UNIT DOSE CUPS PO SCH ×4 (09:24→21:27)
[2018-05-10] MEDS: PANTOPRAZOLE 40 MG TABLET (FP) PO SCH (09:24)
[2018-05-10 09:27] LABS: BASO % 0.5 % (0-2.0); EOS % 1.6 % (0-4.5); HEMATOCRIT 37.8 % (32.4-45.2); HEMOGLOBIN 12.4 GM/dL (10.7-15.3); LYMPH % 14.2 % (8-40); MCH 34.2 pg (25.7-33.7); MCHC 32.8 g/dl (32.0-36.0); MEAN PLT VOLUME 10.9 fl (7.5-11.1); MONO % 12.3 % (3.8-10.2); NEUT % 71.4 % (42.8-82.8); RBC 3.63 M/mm3 (3.60-5.2); RDW 17.8 % (11.6-15.6)
[2018-05-10 09:30] LABS: PLATELET COUNT 35 K/MM3 (134-434)
--- NOTE | 2018-05-10 12:17 | PN ---
Progress Note (short form) - Note Progress Note: Patient seen and examined doing better now just had an ekg starting to eat Vital Signs Period Temp Pulse Resp BP Sys/Rao Pulse Ox Last 24 Hr 97.3 F-98.3 F 106-121 16-20 102-116/50-78 95-97 Skin: No rashes, Integument intact CBC, BMP 05/10/18 06:50 05/10/18 06:50 Current Medications Generic Name Dose Route Start Last Admin Trade Name Freq PRN Reason Stop Dose Admin Alprazolam 0.25 mg 05/08/18 10:00 05/10/18 09:23 Xanax - PO 0.25 mg BID JAKUB Administration Docusate Sodium 100 mg 05/09/18 10:00 05/10/18 09:23 Colace - PO 100 mg BID JAKUB Administration Furosemide 20 mg 05/08/18 10:00 05/10/18 09:23 Lasix - PO 20 mg DAILY JAKUB Administration IV Flush 10 ml 05/07/18 23:41 Noble-Cath Flush IVPUSH PRN PRN FLUSH Megestrol Acetate 400 mg 05/08/18 10:00 05/10/18 09:24 Megace Oral Suspension - PO 400 mg DAILY JAKUB Administration Metoprolol Tartrate 25 mg 05/08/18 10:00 05/10/18 09:24 Lopressor - PO 25 mg BID JAKUB Administration Ondansetron HCl 8 mg 05/07/18 23:41 Zofran Odt - SL Q8H PRN NAUSEA AND/OR VOMITING Pantoprazole Sodium 40 mg 05/09/18 10:00 05/10/18 09:24 Protonix - PO 40 mg DAILY JKAUB Administration Potassium Chloride 20 meq 05/09/18 22:00 05/10/18 09:24 K-Dur - PO 05/11/18 21:59 20 meq BID JAKUB Administration Sucralfate 1 gm 05/09/18 10:00 05/10/18 09:24 Carafate Oral Suspension - PO 1 gm QID JAKUB Administration Impression Atrial fibrillation Thrombocytopenia Hx of Anal ca Atypical chest pain Plan: Etiology of thrombocytpenia multifactorial will f/v no need for transfusion now Needs anti-platelet antibodies Routine screening Hold eliquis
[2018-05-10] MEDS ORDERED: GLYCERIN 1 RECTAL SUPPOSITORY, ADULT RC ONE (17:53)
[2018-05-10] MEDS ORDERED: PT OWN MED DRAWER 7, Y5N ONE (20:49)
--- NOTE | 2018-05-10 21:50 | PN ---
Progress Note (short form) - Note Progress Note: Patient is comfortable, eating better. has better appetite today. Vital Signs Temperature 97.7 F 05/10/18 16:30 Pulse Rate 120 H 05/10/18 16:30 Respiratory Rate 18 05/10/18 16:30 Blood Pressure 107/56 L 05/10/18 16:30 O2 Sat by Pulse Oximetry (%) 97 05/10/18 09:00 GENERAL: Awake, alert, and fully oriented, in no acute distress. HEAD: Normal with no signs of trauma. EYES: Pupils equal, round and reactive to light, extraocular movements intact. EARS, NOSE, THROAT: Moist mucous membranes. LUNGS: poor indicatory effort No wheezes, and no crackles. No accessory muscle use. HEART: irregularly irregular with RVR rate of 122. ABDOMEN: Soft, nontender, ND, positive BS, no guarding, no rebound, no masses. EXTREMITIES: 2+ pulses, warm, well-perfused. No calf tenderness. No peripheral edema. NEUROLOGICAL: Cranial nerves II-XII intact. Normal speech. PSYCHIATRIC: Cooperative. Good eye contact. Appropriate mood and affect. CBCD WBC 5.0 K/mm3 (4.0-10.0) 05/10/18 06:50 RBC 3.63 M/mm3 (3.60-5.2) 05/10/18 06:50 Hgb 12.4 GM/dL (10.7-15.3) 05/10/18 06:50 Hct 37.8 % (32.4-45.2) 05/10/18 06:50 MCV 104.0 fl (80-96) H 05/10/18 06:50 MCHC 32.8 g/dl (32.0-36.0) 05/10/18 06:50 RDW 17.8 % (11.6-15.6) H 05/10/18 06:50 Plt Count 35 K/MM3 (134-434) L* 05/10/18 06:50 MPV 10.9 fl (7.5-11.1) 05/10/18 06:50 CMP Sodium 139 mmol/L (136-145) 05/10/18 06:50 Potassium 3.8 mmol/L (3.5-5.1) 05/10/18 06:50 Chloride 106 mmol/L (98-107) 05/10/18 06:50 Carbon Dioxide 25 mmol/L (21-32) 05/10/18 06:50 Anion Gap 8 MMOL/L (8-16) 05/10/18 06:50 BUN 19 mg/dL (7-18) H 05/10/18 06:50 Creatinine 1.1 mg/dL (0.55-1.3) 05/10/18 06:50 Creat Clearance w eGFR 47.79 (>60) 05/10/18 06:50 Random Glucose 85 mg/dL (74-106) 05/10/18 06:50 Calcium 8.1 mg/dL (8.5-10.1) L 05/10/18 06:50 Total Bilirubin 0.6 mg/dL (0.2-1) 05/10/18 06:50 AST 16 U/L (15-37) 05/10/18 06:50 ALT 14 U/L (13-61) 05/10/18 06:50 Alkaline Phosphatase 61 U/L (45-117) 05/10/18 06:50 Total Protein 6.4 g/dl (6.4-8.2) 05/10/18 06:50 Albumin 2.8 g/dl (3.4-5.0) L 05/10/18 06:50 CARDIAC ENZYMES Creatine Kinase 45 IU/L (26-192) 05/07/18 14:55 Troponin I < 0.02 ng/ml (0.00-0.05) 05/07/18 23:38 Current Medications Generic Name Dose Route Start Last Admin Trade Name Freq PRN Reason Stop Dose Admin Alprazolam 0.25 mg 05/08/18 10:00 05/10/18 21:27 Xanax - PO 0.25 mg BID JAKUB Administration Docusate Sodium 100 mg 05/10/18 22:00 05/10/18 21:27 Colace - PO 100 mg TID JAKUB Administration Furosemide 20 mg 05/08/18 10:00 05/10/18 09:23 Lasix - PO 20 mg DAILY JAKUB Administration IV Flush 10 ml 05/07/18 23:41 Noble-Cath Flush IVPUSH PRN PRN FLUSH Megestrol Acetate 400 mg 05/08/18 10:00 05/10/18 09:24 Megace Oral Suspension - PO 400 mg DAILY JAKUB Administration Metoprolol Tartrate 25 mg 05/08/18 10:00 05/10/18 21:27 Lopressor - PO 25 mg BID JAKUB Administration Ondansetron HCl 8 mg 05/07/18 23:41 Zofran Odt - SL Q8H PRN NAUSEA AND/OR VOMITING Pantoprazole Sodium 40 mg 05/09/18 10:00 05/10/18 09:24 Protonix - PO 40 mg DAILY JAKUB Administration Potassium Chloride 20 meq 05/09/18 22:00 05/10/18 21:27 K-Dur - PO 05/11/18 21:59 20 meq BID JAKUB Administration Sucralfate 1 gm 05/09/18 10:00 05/10/18 21:27 Carafate Oral Suspension - PO 1 gm QID JAKUB Administration Home Medications Medication Instructions Recorded Alprazolam [Xanax] 0.25 mg PO TID PRN MDD 0.75 10/18/17 Ondansetron [Zofran *Odt*] 8 mg PO Q8H PRN 12/31/17 Megestrol Acetate Oral Susp 400 mg PO DAILY 30 Days #1 cup 01/05/18 [Megace Oral Suspension -] Apixaban [Eliquis -] 2.5 mg PO BID #60 tablet 02/22/18 Furosemide [Lasix -] 20 mg PO DAILY #7 tablet 02/22/18 Noble-Cath Flush [Noble-Cath Flush 10 ml IVPUSH PRN PRN ml 02/22/18 -] Metoprolol Tartrate [Lopressor -] 25 mg PO BID tablet 02/26/18 Docusate Sodium [Colace] 100 mg PO BID 05/07/18 Albuterol 0.083% Nebulizer Ela 1 vial NEB Q6H 05/08/18 [Ventolin 0.083% Nebulizer Soln -] Megestrol Acetate 1 tab PO DAILY 05/08/18 Pantoprazole Sodium 1 tab PO DAILY 05/08/18 Sucralfate [Carafate] 10 ml PO QID 05/08/18 ASSESSMENT AND PLAN: Patient is a 82 y/o female with a history of anal cancer, afib on eliquis, CHF, and anxiety who presents to the ED from her oncologists office (Dr. Oneil) for tachycardia with chest pain and shortness of breath. # Acute CP , acs is ruled out, trop. negative x2 sets. cardio appreciated. #Afib with RVR with CHADSVASC 5, cardio on the case.On Eliquis will continue to hold due to having with low platelets #Thrombocytopenia will continue to hold Eliquis for now. hem/onc appreciated. #Acute CHF exacerbation on LAsix 20mg daily #anxiety: continue xanax .25 mg #nausea continue Zofran, QTC 449 Full code at this time, patient may benefit from Palliative care consult Visit type - Emergency Visit Emergency Visit: Yes ED Registration Date: 05/07/18 Care time: The patient presented to the Emergency Department on the above date and was hospitalized for further evaluation of their emergent condition. - New Patient This patient is new to me today: No - Critical Care Critical Care patient: No - Discharge Referral Referred to [facility] Med P.C.: No
[2018-05-11] MEDS: DOCUSATE SODIUM 100 MG CAPSULE (FP) PO SCH ×3 (06:49→22:16)
--- NOTE | 2018-05-11 08:44 | PN ---
Progress Note, Physician History of Present Illness: Pt is an 82yo f with PMH of anal cancer, Afib (on Eliquis), CHF presenting to ED with complaints of chest pressure x3 months since January. Pt has had chemotherapy and RT for anal cancer and states she has been feeling a chest pressure since then. It is associated with SOB (pt is on oxygen at home, does not know how much). Pt says pressure is there when she wakes up and does not go away. She denies fever, chills, cough, n/v, headaches, neck pain, lightheadedness. Admits to loss of appetite and fatigue. - Current Medication List Current Medications: Active Medications Alprazolam (Xanax -) 0.25 mg PO BID [facility] Last Admin: 05/10/18 21:27 Dose: 0.25 mg Docusate Sodium (Colace -) 100 mg PO TID [facility] Last Admin: 05/11/18 06:49 Dose: 100 mg Furosemide (Lasix -) 20 mg PO DAILY [facility] Last Admin: 05/10/18 09:23 Dose: 20 mg IV Flush (Noble-Cath Flush) 10 ml IVPUSH PRN PRN PRN Reason: FLUSH Megestrol Acetate (Megace Oral Suspension -) 400 mg PO DAILY [facility] Last Admin: 05/10/18 09:24 Dose: 400 mg Metoprolol Tartrate (Lopressor -) 25 mg PO BID [facility] Last Admin: 05/10/18 21:27 Dose: 25 mg Ondansetron HCl (Zofran Odt -) 8 mg SL Q8H PRN PRN Reason: NAUSEA AND/OR VOMITING Pantoprazole Sodium (Protonix -) 40 mg PO DAILY [facility] Last Admin: 05/10/18 09:24 Dose: 40 mg Potassium Chloride (K-Dur -) 20 meq PO BID [facility] Stop: 05/11/18 21:59 Last Admin: 05/10/18 21:27 Dose: 20 meq Sucralfate (Carafate Oral Suspension -) 1 gm PO QID [facility] Last Admin: 05/10/18 21:27 Dose: 1 gm - Objective Vital Signs: Vital Signs Temperature 96.5 F L 05/11/18 05:00 Pulse Rate 115 H 05/11/18 05:00 Respiratory Rate 18 05/11/18 05:00 Blood Pressure 105/59 L 05/11/18 05:00 O2 Sat by Pulse Oximetry (%) 93 L 05/10/18 21:00 Eyes: Yes: WNL, Conjunctiva Clear, EOM Intact HENT: Yes: WNL, Atraumatic, Normocephalic Neck: Yes: WNL, Supple, Trachea Midline Cardiovascular: Yes: WNL, Regular Rate and Rhythm Respiratory: Yes: WNL, Regular, CTA Bilaterally Gastrointestinal: Yes: WNL, Normal Bowel Sounds Genitourinary: Yes: WNL Musculoskeletal: Yes: WNL Extremities: Yes: WNL Edema: No Integumentary: Yes: WNL Neurological: Yes: WNL, Alert, Oriented ...Motor Strength: WNL Psychiatric: Yes: WNL Labs: CBC, BMP 05/10/18 06:50 05/10/18 06:50 INR, PTT INR 1.42 (0.83-1.09) H 05/07/18 14:55 Assessment/Plan Problems (1) Anxiety and depression Code(s): F41.9 - ANXIETY DISORDER, UNSPECIFIED; F32.9 - MAJOR DEPRESSIVE DISORDER, SINGLE EPISODE, UNSPECIFIED (2) Thrombocytopenia Assessment/Plan: Platelets 35. F/u with heme-onc. NOAC (being given for AF) held. Code(s): D69.6 - THROMBOCYTOPENIA, UNSPECIFIED (3) Anal cancer Code(s): C21.0 - MALIGNANT NEOPLASM OF ANUS, UNSPECIFIED (4) Atrial fibrillation Assessment/Plan: On metoprolol bid for HR control; consider increase to q8h for better HR control. TSH WNL; afebrile. NOAC held due to low platelets. Replete K+ again , and keep 4-4.5 Follow Mg, and keep 2-2.4 (wnl presently). Keep P04 2.5-4.9 Code(s): I48.91 - UNSPECIFIED ATRIAL FIBRILLATION Qualifiers: Atrial fibrillation type: unspecified Qualified Code(s): I48.91 - Unspecified atrial fibrillation (5) Diastolic CHF Assessment/Plan: On metoprolol and furosemide. F/u BUn/Cr, electrolytes, daily weight, Is and Os. Code(s): I50.30 - UNSPECIFIED DIASTOLIC (CONGESTIVE) HEART FAILURE (6) Vomiting Code(s): R11.10 - VOMITING, UNSPECIFIED Qualifiers: Vomiting type: unspecified Vomiting Intractability: intractable Nausea presence: with nausea Qualified Code(s): R11.2 - Nausea with vomiting, unspecified (7) Weakness Assessment/Plan: Encourage increased PO intake. Nutritional f/u. Code(s): R53.1 - WEAKNESS
[2018-05-11] MEDS: PANTOPRAZOLE 40 MG TABLET (FP) PO SCH (09:53)
[2018-05-11] MEDS: FUROSEMIDE 20 MG TABLET (FP) PO SCH (09:53)
[2018-05-11] MEDS: SUCRALFATE 1 GM/10 ML UNIT DOSE CUPS PO SCH ×4 (09:53→22:15)
[2018-05-11] MEDS: ALPRAZolam 0.25 MG TABLET PO SCH ×2 (09:53→22:15)
[2018-05-11] MEDS: POTASSIUM CHLORIDE TABS 20 MEQ TABLET.ER (FP) PO SCH (09:53)
[2018-05-11] MEDS: METOPROLOL TARTRATE 25 MG TABLET (FP) PO SCH ×4 (09:53→22:15)
[2018-05-11] MEDS ORDERED: PT OWN MED DRAWER 7, Y5N ONE ×2 (09:55→21:45)
[2018-05-11] MEDS: MEGESTROL ACETATE 400 MG/10 ML UNIT DOSE CUP PO SCH (09:55)
--- NOTE | 2018-05-11 10:53 | PN ---
Progress Note (short form) - Note Progress Note: Patient seen and examined doing better now chest pressure ahs amrkedly decreased troponins are negative it is very hot in her room and enginerring needs to come in Vital Signs Period Temp Pulse Resp BP Sys/Rao Pulse Ox Last 24 Hr 96.5 F-98.1 F 101-120 16-18 92-111/45-72 93 Skin: No rashes, Integument intact CBC, BMP 05/10/18 06:50 05/10/18 06:50 Active Medications Generic Name Dose Route Start Last Admin Trade Name Freq PRN Reason Stop Dose Admin Alprazolam 0.25 mg 05/08/18 10:00 05/11/18 09:53 Xanax - PO 0.25 mg BID JAKUB Administration Docusate Sodium 100 mg 05/10/18 22:00 05/11/18 06:49 Colace - PO 100 mg TID JAKUB Administration Furosemide 20 mg 05/08/18 10:00 05/11/18 09:53 Lasix - PO 20 mg DAILY JAKUB Administration IV Flush 10 ml 05/07/18 23:41 Noble-Cath Flush IVPUSH PRN PRN FLUSH Megestrol Acetate 400 mg 05/08/18 10:00 05/11/18 09:55 Megace Oral Suspension - PO 400 mg DAILY JAKUB Administration Metoprolol Tartrate 25 mg 05/08/18 10:00 05/11/18 09:53 Lopressor - PO 25 mg BID JAKUB Administration Ondansetron HCl 8 mg 05/07/18 23:41 Zofran Odt - SL Q8H PRN NAUSEA AND/OR VOMITING Pantoprazole Sodium 40 mg 05/09/18 10:00 05/11/18 09:53 Protonix - PO 40 mg DAILY JAKUB Administration Potassium Chloride 20 meq 05/09/18 22:00 05/11/18 09:53 K-Dur - PO 05/11/18 21:59 20 meq BID JAKUB Administration Sucralfate 1 gm 05/09/18 10:00 05/11/18 09:53 Carafate Oral Suspension - PO 1 gm QID JAKUB Administration Impression Atrial fibrillation Thrombocytopenia Hx of Anal ca Atypical chest pain Plan: Etiology of thrombocytpenia multifactorial but likely from chemotherapy will f/v no need for transfusion now. Transfuse if bleeding or platelets less than 15k Hold eliquis continue workup for chest tightness
--- NOTE | 2018-05-11 11:38 | PN ---
Teaching Attending Note Name of Resident: Wendy Perry ATTENDING PHYSICIAN STATEMENT I saw and evaluated the patient. I reviewed the resident's note and discussed the case with the resident. I agree with the resident's findings and plan as documented. SUBJECTIVE: Patient has no new complains. OBJECTIVE: Vital Signs Temperature 96.5 F L 05/11/18 05:00 Pulse Rate 115 H 05/11/18 05:00 Respiratory Rate 18 05/11/18 05:00 Blood Pressure 105/59 L 05/11/18 05:00 O2 Sat by Pulse Oximetry (%) 93 L 05/10/18 21:00 GENERAL: Awake, alert, and fully oriented, in no acute distress. HEAD: Normal with no signs of trauma. EYES: Pupils equal, round and reactive to light, extraocular movements intact. EARS, NOSE, THROAT: Moist mucous membranes. LUNGS: poor indicatory effort No wheezes, and no crackles. No accessory muscle use. HEART: irregularly irregular with RVR rate of 122. ABDOMEN: Soft, nontender, ND, positive BS, no guarding, no rebound, no masses. EXTREMITIES: 2+ pulses, warm, well-perfused. No calf tenderness. No peripheral edema. NEUROLOGICAL: Cranial nerves II-XII intact. Normal speech. PSYCHIATRIC: Cooperative. Good eye contact. Appropriate mood and affect. CBCD WBC 5.0 K/mm3 (4.0-10.0) 05/10/18 06:50 RBC 3.63 M/mm3 (3.60-5.2) 05/10/18 06:50 Hgb 12.4 GM/dL (10.7-15.3) 05/10/18 06:50 Hct 37.8 % (32.4-45.2) 05/10/18 06:50 MCV 104.0 fl (80-96) H 05/10/18 06:50 MCHC 32.8 g/dl (32.0-36.0) 05/10/18 06:50 RDW 17.8 % (11.6-15.6) H 05/10/18 06:50 Plt Count 35 K/MM3 (134-434) L* 05/10/18 06:50 MPV 10.9 fl (7.5-11.1) 05/10/18 06:50 CMP Sodium 139 mmol/L (136-145) 05/10/18 06:50 Potassium 3.8 mmol/L (3.5-5.1) 05/10/18 06:50 Chloride 106 mmol/L (98-107) 05/10/18 06:50 Carbon Dioxide 25 mmol/L (21-32) 05/10/18 06:50 Anion Gap 8 MMOL/L (8-16) 05/10/18 06:50 BUN 19 mg/dL (7-18) H 05/10/18 06:50 Creatinine 1.1 mg/dL (0.55-1.3) 05/10/18 06:50 Creat Clearance w eGFR 47.79 (>60) 05/10/18 06:50 Random Glucose 85 mg/dL (74-106) 05/10/18 06:50 Calcium 8.1 mg/dL (8.5-10.1) L 05/10/18 06:50 Total Bilirubin 0.6 mg/dL (0.2-1) 05/10/18 06:50 AST 16 U/L (15-37) 05/10/18 06:50 ALT 14 U/L (13-61) 05/10/18 06:50 Alkaline Phosphatase 61 U/L (45-117) 05/10/18 06:50 Total Protein 6.4 g/dl (6.4-8.2) 05/10/18 06:50 Albumin 2.8 g/dl (3.4-5.0) L 05/10/18 06:50 CARDIAC ENZYMES Creatine Kinase 45 IU/L (26-192) 05/07/18 14:55 Troponin I < 0.02 ng/ml (0.00-0.05) 05/07/18 23:38 Current Medications Generic Name Dose Route Start Last Admin Trade Name Freq PRN Reason Stop Dose Admin Alprazolam 0.25 mg 05/08/18 10:00 05/11/18 09:53 Xanax - PO 0.25 mg BID JAKUB Administration Docusate Sodium 100 mg 05/10/18 22:00 05/11/18 06:49 Colace - PO 100 mg TID JAKUB Administration Furosemide 20 mg 05/08/18 10:00 05/11/18 09:53 Lasix - PO 20 mg DAILY JAKUB Administration IV Flush 10 ml 05/07/18 23:41 Noble-Cath Flush IVPUSH PRN PRN FLUSH Megestrol Acetate 400 mg 05/08/18 10:00 05/11/18 09:55 Megace Oral Suspension - PO 400 mg DAILY JAKUB Administration Metoprolol Tartrate 25 mg 05/08/18 10:00 05/11/18 09:53 Lopressor - PO 25 mg BID JAKUB Administration Ondansetron HCl 8 mg 05/07/18 23:41 Zofran Odt - SL Q8H PRN NAUSEA AND/OR VOMITING Pantoprazole Sodium 40 mg 05/09/18 10:00 05/11/18 09:53 Protonix - PO 40 mg DAILY JAKUB Administration Potassium Chloride 20 meq 05/09/18 22:00 05/11/18 09:53 K-Dur - PO 05/11/18 21:59 20 meq BID JAKUB Administration Sucralfate 1 gm 05/09/18 10:00 05/11/18 09:53 Carafate Oral Suspension - PO 1 gm QID JAKUB Administration Home Medications Medication Instructions Recorded Alprazolam [Xanax] 0.25 mg PO TID PRN MDD 0.75 10/18/17 Ondansetron [Zofran *Odt*] 8 mg PO Q8H PRN 12/31/17 Megestrol Acetate Oral Susp 400 mg PO DAILY 30 Days #1 cup 01/05/18 [Megace Oral Suspension -] Apixaban [Eliquis -] 2.5 mg PO BID #60 tablet 02/22/18 Furosemide [Lasix -] 20 mg PO DAILY #7 tablet 02/22/18 Noble-Cath Flush [Noble-Cath Flush 10 ml IVPUSH PRN PRN ml 02/22/18 -] Metoprolol Tartrate [Lopressor -] 25 mg PO BID tablet 02/26/18 Docusate Sodium [Colace] 100 mg PO BID 05/07/18 Albuterol 0.083% Nebulizer Ela 1 vial NEB Q6H 05/08/18 [Ventolin 0.083% Nebulizer Soln -] Megestrol Acetate 1 tab PO DAILY 05/08/18 Pantoprazole Sodium 1 tab PO DAILY 05/08/18 Sucralfate [Carafate] 10 ml PO QID 05/08/18 Laboratory Tests 05/07/18 05/08/18 05/09/18 14:55 05:30 05:30 MCV 104.5 H 104.1 H 102.7 H Plt Count 26 L* D 61 L D 39 L D 05/10/18 05/11/18 06:50 12:30 MCV 104.0 H 104.5 H Plt Count 35 L* 38 L ASSESSMENT AND PLAN: Patient is a 82 y/o female with a history of anal cancer, afib on eliquis, CHF, and anxiety who presents to the ED from her oncologists office (Dr. Oneil) for tachycardia with chest pain and shortness of breath. #Thrombocytopenia will continue to hold Eliquis , discussed with hem/onc. to continue to monitor the platelets. if drops below 20K to transfuse. will repeat the level in am. if within normal level or stable will check Hem/ onc for dc plan. # Acute CP , acs is ruled out, trop. negative x2 sets. cardio appreciated. #Afib with RVR with CHADSVASC 5, cardio on the case. On Eliquis will continue to hold due to having with low platelets #Acute CHF exacerbation on LAsix 20mg daily #anxiety: continue xanax .25 mg #nausea continue Zofran, QTC 449 Full code at this time.
--- NOTE | 2018-05-11 11:39 | PN ---
Physical Exam: SUBJECTIVE: Patient seen and examined this morning. No new complaints overnight. Feels her chest pressure and breathing have improved. No acute overnight events as per nursing staff. OBJECTIVE: Vital Signs Period Temp Pulse Resp BP Sys/Rao Pulse Ox Last 24 Hr 96.5 F-98.1 F 101-120 16-18 97-111/45-72 93 GENERAL: A&Ox3, Sitting upright reading her book in NAD HEAD: NCAT EYES: PERRL, EOMI, wearing glasses ENT: Oropharynx clear without exudates, moist mucous membranes. NECK: No JVD LUNGS: Wheezing, On NC 2L HEART: Irregularly, Irregular, No murmur ABDOMEN: Soft, nontender, nondistended, + bowel sounds EXTREMITIES: 2+ pulses, no edema. NEUROLOGICAL: Cranial nerves II through XII grossly intact. Normal speech. Active Medications Alprazolam (Xanax -) 0.25 mg PO BID [facility] Last Admin: 05/11/18 09:53 Dose: 0.25 mg Docusate Sodium (Colace -) 100 mg PO TID [facility] Last Admin: 05/11/18 06:49 Dose: 100 mg Furosemide (Lasix -) 20 mg PO DAILY [facility] Last Admin: 05/11/18 09:53 Dose: 20 mg IV Flush (Noble-Cath Flush) 10 ml IVPUSH PRN PRN PRN Reason: FLUSH Megestrol Acetate (Megace Oral Suspension -) 400 mg PO DAILY [facility] Last Admin: 05/11/18 09:55 Dose: 400 mg Metoprolol Tartrate (Lopressor -) 25 mg PO BID [facility] Last Admin: 05/11/18 09:53 Dose: 25 mg Ondansetron HCl (Zofran Odt -) 8 mg SL Q8H PRN PRN Reason: NAUSEA AND/OR VOMITING Pantoprazole Sodium (Protonix -) 40 mg PO DAILY [facility] Last Admin: 05/11/18 09:53 Dose: 40 mg Potassium Chloride (K-Dur -) 20 meq PO BID [facility] Stop: 05/11/18 21:59 Last Admin: 05/11/18 09:53 Dose: 20 meq Sucralfate (Carafate Oral Suspension -) 1 gm PO QID [facility] Last Admin: 05/11/18 09:53 Dose: 1 gm IMAGING: -EKG: ATRIAL FIBRILLATION WITH RAPID VENTRICULAR RESPONSE, NONSPECIFIC T WAVE ABNORMALITY, VR 104, QTc 454 -CXR: Since 02/24/2018, the chronic interstitial and nodular changes with some alveolar components, prominent mediastinum and right port persist. -CTA: No definite CT evidence of pulmonary embolism. As on a prior CT exam of there is prominent bilateral interstitial thickening within the upper and lower lung walsh consistent with chronic interstitial lung disease. Possible mildly increased interstitial thickening is seen bilaterally since the prior exam which could be on the basis of additional chronic interstitial changes versus representing superimposed interstitial pneumonitis or interstitial vascular congestion. Clinical/laboratory correlation is suggested. Cardiomegaly is noted as on the prior study. Stable mild mediastinal and bilateral hilar lymphadenopathy is seen which is probably hyperplastic in nature. There has been interval insertion of a right internal jugular venous catheter with the catheter tip at the level of the superior cavoatrial junction. Stable 2.4 cm right adrenal adenoma -ECHO: LV Size, thickness, function are normal. LA moderately dilated, RA mildly dilated. Moderate MR and TR, Mild AR. ASSESSMENT/PLAN: 82 y/o female with PMHx of anal cancer (S/P Chemo and Radiation), Afib (on eliquis), CHF, and anxiety presents to the ED from Dr. Oneil's office for tachycardia and SOB. #Thrombocytopenia -S/P chemo with hx of thrombocytopenia requiring transfusion in the past -S/P 1 units of platelets given this visit -Continue to Hold Elliquis, PLT count this am dropped to 35 -Hematology (Dr. Oneil) consulted, Appreciate Rec's -Will Transfuse if bleeding or platelets less than 15k #Tachycardia -Likely due to AFib with RVR (CHADSVASC 5) -Rate still above goal -EKG, Echo noted Noted above -Metoprolol dose change to Q8H -Elliquis held in the setting of Thrombocytopenia -Cardiology (Dr. Johnston) consulted, Appreciate Rec's #Hypokalemia -Replete -Will keep K+ at 4-4.5 #SOB -Likely to due Acute CHF Exacerbation 2/2 Afib; Still consider Interstitial Lung disease -BNP: 2876 -ECHO, CXR, CTA Noted above -Continue Lasix -Strict I&Os, Daily weights -Continue Supplemental O2 HS #Chest Pressure -R/O ACS -Troponin <0.02 X2, EKG Noted above #Hx of Anxiety -Continue home dose Xanax #Nausea -Continue Zofran #FEN -PO Fluids -Will keep K+ 4-4.5, Mg 2-2.4, Phos 2.5-4.9 -Regular Diet #PPx -DVT: Early Ambulation; Elliquis held in the setting of Thrombocytopenia Full code Visit type - Emergency Visit Emergency Visit: Yes ED Registration Date: 05/07/18 Care time: The patient presented to the Emergency Department on the above date and was hospitalized for further evaluation of their emergent condition. - New Patient This patient is new to me today: No - Critical Care Critical Care patient: No - Discharge Referral Referred to [facility] Med P.C.: No
[2018-05-11 12:42] LABS: BASO % 0.4 % (0-2.0); EOS % 1.1 % (0-4.5); HEMATOCRIT 38.2 % (32.4-45.2); HEMOGLOBIN 12.8 GM/dL (10.7-15.3); LYMPH % 6.8 % (8-40); MCH 35.1 pg (25.7-33.7); MCHC 33.6 g/dl (32.0-36.0); MEAN CELL VOLUME 104.5 fl (80-96); MEAN PLT VOLUME 11.5 fl (7.5-11.1); MONO % 12.2 % (3.8-10.2); NEUT % 79.5 % (42.8-82.8); PLATELET COUNT 38 K/MM3 (134-434); RBC 3.66 M/mm3 (3.60-5.2); RDW 17.8 % (11.6-15.6); WHITE BLOOD COUNT 6.1 K/mm3 (4.0-10.0)
--- NOTE | 2018-05-11 19:04 | EKG ---
Test Reason : Blood Pressure : / mmHG Vent. Rate : 108 BPM Atrial Rate : 115 BPM P-R Int : 000 ms QRS Dur : 072 ms QT Int : 316 ms P-R-T Axes : 000 030 -25 degrees QTc Int : 423 ms ATRIAL FIBRILLATION WITH RAPID VENTRICULAR RESPONSE WITH PREMATURE VENTRICULAR OR ABERRANTLY CONDUCTED COMPLEXES ABNORMAL ECG WHEN COMPARED WITH ECG OF 07-MAY-2018 15:26, T WAVE VARIATION Confirmed by CHETAN PLUNKETT, JOSE JUAN ([id number]) on 05/11/2018 7:04:10 PM Referred By: Andrey PABON Confirmed By:JOSE JUAN BENTON MD
[2018-05-12] MEDS: METOPROLOL TARTRATE 25 MG TABLET (FP) PO SCH ×3 (05:18→22:47)
[2018-05-12] MEDS: DOCUSATE SODIUM 100 MG CAPSULE (FP) PO SCH ×3 (05:18→22:44)
[2018-05-12 07:36] LABS: BASO % 0.6 % (0-2.0); EOS % 2.1 % (0-4.5); HEMATOCRIT 34.8 % (32.4-45.2); HEMOGLOBIN 11.2 GM/dL (10.7-15.3); LYMPH % 10.9 % (8-40); MCH 33.6 pg (25.7-33.7); MCHC 32.3 g/dl (32.0-36.0); MEAN PLT VOLUME 11.1 fl (7.5-11.1); MONO % 14.6 % (3.8-10.2); NEUT % 71.8 % (42.8-82.8); RBC 3.34 M/mm3 (3.60-5.2); RDW 17.8 % (11.6-15.6); WHITE BLOOD COUNT 5.1 K/mm3 (4.0-10.0)
[2018-05-12 08:03] LABS: ALBUMIN 2.4 g/dl (3.4-5.0); ALK PHOS 52 U/L (45-117); ANION GAP 7 MMOL/L (8-16); BILIRUBIN,TOTAL 0.5 mg/dL (0.2-1); BLOOD UREA NITROGEN 17 mg/dL (7-18); CHLORIDE 108 mmol/L (98-107); CO2 25 mmol/L (21-32); CREATININE 0.9 mg/dL (0.55-1.3); GLUCOSE,RANDOM 84 mg/dL (74-106); MAGNESIUM 1.9 mg/dL (1.8-2.4); POTASSIUM 3.9 mmol/L (3.5-5.1); SGOT/AST 16 U/L (15-37); SGPT/ALT 10 U/L (13-61); SODIUM 139 mmol/L (136-145); TOT PROT 5.6 g/dl (6.4-8.2)
[2018-05-12 08:26] LABS: PLATELET COUNT 27 K/MM3 (134-434)
[2018-05-12] MEDS ORDERED: PT OWN MED DRAWER 7, Y5N ONE (09:29)
[2018-05-12] MEDS: MEGESTROL ACETATE 400 MG/10 ML UNIT DOSE CUP PO SCH (09:31)
[2018-05-12] MEDS: ALPRAZolam 0.25 MG TABLET PO SCH ×2 (09:31→22:44)
[2018-05-12] MEDS: SUCRALFATE 1 GM/10 ML UNIT DOSE CUPS PO SCH ×4 (09:31→22:44)
[2018-05-12] MEDS: FUROSEMIDE 20 MG TABLET (FP) PO SCH (09:31)
[2018-05-12] MEDS: PANTOPRAZOLE 40 MG TABLET (FP) PO SCH (09:31)
--- NOTE | 2018-05-12 13:04 | PN ---
Progress Note, Physician History of Present Illness: Pt is an 82yo f with PMH of anal cancer, Afib (on Eliquis), CHF presenting to ED with complaints of chest pressure x3 months since January. Pt has had chemotherapy and RT for anal cancer and states she has been feeling a chest pressure since then. It is associated with SOB (pt is on oxygen at home, does not know how much). Pt says pressure is there when she wakes up and does not go away. She denies fever, chills, cough, n/v, headaches, neck pain, lightheadedness. Admits to loss of appetite and fatigue. - Current Medication List Current Medications: Active Medications Alprazolam (Xanax -) 0.25 mg PO BID [facility] Last Admin: 05/12/18 09:31 Dose: 0.25 mg Docusate Sodium (Colace -) 100 mg PO TID [facility] Last Admin: 05/12/18 05:18 Dose: 100 mg Furosemide (Lasix -) 20 mg PO DAILY [facility] Last Admin: 05/12/18 09:31 Dose: 20 mg IV Flush (Noble-Cath Flush) 10 ml IVPUSH PRN PRN PRN Reason: FLUSH Megestrol Acetate (Megace Oral Suspension -) 400 mg PO DAILY [facility] Last Admin: 05/12/18 09:31 Dose: 400 mg Metoprolol Tartrate (Lopressor -) 25 mg PO TID [facility] Last Admin: 05/12/18 05:18 Dose: 25 mg Ondansetron HCl (Zofran Odt -) 8 mg SL Q8H PRN PRN Reason: NAUSEA AND/OR VOMITING Pantoprazole Sodium (Protonix -) 40 mg PO DAILY [facility] Last Admin: 05/12/18 09:31 Dose: 40 mg Sucralfate (Carafate Oral Suspension -) 1 gm PO QID [facility] Last Admin: 05/12/18 09:31 Dose: 1 gm - Objective Vital Signs: Vital Signs Temperature 97.8 F 05/12/18 10:00 Pulse Rate 101 H 05/12/18 10:00 Respiratory Rate 18 05/12/18 10:00 Blood Pressure 94/49 L 05/12/18 10:00 O2 Sat by Pulse Oximetry (%) 92 L 05/12/18 09:00 Eyes: Yes: WNL, Conjunctiva Clear, EOM Intact HENT: Yes: WNL, Atraumatic, Normocephalic Neck: Yes: WNL, Supple, Trachea Midline Cardiovascular: Yes: WNL, Regular Rate and Rhythm Respiratory: Yes: WNL, Regular, CTA Bilaterally Gastrointestinal: Yes: WNL, Normal Bowel Sounds Genitourinary: Yes: WNL Musculoskeletal: Yes: WNL Extremities: Yes: WNL Edema: No Integumentary: Yes: WNL Neurological: Yes: WNL, Alert, Oriented ...Motor Strength: WNL Psychiatric: Yes: WNL Labs: CBC, BMP 05/12/18 06:45 05/12/18 06:45 INR, PTT INR 1.42 (0.83-1.09) H 05/07/18 14:55 Assessment/Plan Problems (1) Anxiety and depression Code(s): F41.9 - ANXIETY DISORDER, UNSPECIFIED; F32.9 - MAJOR DEPRESSIVE DISORDER, SINGLE EPISODE, UNSPECIFIED (2) Thrombocytopenia Assessment/Plan: Platelets 35 - 27 today F/u with heme-onc. NOAC (being given for AF) held. Code(s): D69.6 - THROMBOCYTOPENIA, UNSPECIFIED (3) Anal cancer Code(s): C21.0 - MALIGNANT NEOPLASM OF ANUS, UNSPECIFIED (4) Atrial fibrillation Assessment/Plan: On metoprolol bid for HR control; consider increase to q8h for better HR control. TSH WNL; afebrile. NOAC held due to low platelets. Replete K+ again , and keep 4-4.5 Follow Mg, and keep 2-2.4 (wnl presently). Keep P04 2.5-4.9 Code(s): I48.91 - UNSPECIFIED ATRIAL FIBRILLATION Qualifiers: Atrial fibrillation type: unspecified Qualified Code(s): I48.91 - Unspecified atrial fibrillation (5) Diastolic CHF Assessment/Plan: On metoprolol and furosemide. F/u BUn/Cr, electrolytes, daily weight, Is and Os. Code(s): I50.30 - UNSPECIFIED DIASTOLIC (CONGESTIVE) HEART FAILURE (6) Vomiting Code(s): R11.10 - VOMITING, UNSPECIFIED Qualifiers: Vomiting type: unspecified Vomiting Intractability: intractable Nausea presence: with nausea Qualified Code(s): R11.2 - Nausea with vomiting, unspecified (7) Weakness Assessment/Plan: Encourage increased PO intake. Nutritional f/u. Code(s): R53.1 - WEAKNESS
--- NOTE | 2018-05-12 13:30 | PN ---
Progress Note (short form) - Note Progress Note: Heme/Onc Patient seen and examined at bedside feels well no complaints denies bleeding Platelets 27K Vital Signs Temperature 97.8 F 05/12/18 10:00 Pulse Rate 101 H 05/12/18 10:00 Respiratory Rate 18 05/12/18 10:00 Blood Pressure 94/49 L 05/12/18 10:00 O2 Sat by Pulse Oximetry (%) 92 L 05/12/18 09:00 PE: Constitutional: Yes: No Distress, Calm, Thin Eyes: Yes: Conjunctiva Clear, EOM Intact HENT: Yes: Atraumatic, Normocephalic Neck: Yes: Supple, Trachea Midline Cardiovascular: Yes: Pulse Irregular. No: Murmur Respiratory: Yes: Regular, Rhonchi (bilaterally) Gastrointestinal: Yes: Normal Bowel Sounds, Soft. No: Tenderness Edema: Yes (trace nonpitting) Edema: LLE: Trace, RLE: Trace Psychiatric: Yes: Alert, Oriented 05/11/18 05/12/18 05/12/18 12:30 06:45 06:45 WBC 5.1 RBC 3.34 L Hgb 11.2 Hct 34.8 MCV 104.0 H MCHC 32.3 RDW 17.8 H Plt Count 38 L 27 L* D Neutrophils % 71.8 Lymphocytes % 10.9 D Monocytes % 14.6 H Eosinophils % 2.1 D Basophils % 0.6 Sodium 139 Potassium 3.9 Chloride 108 H Carbon Dioxide 25 Anion Gap 7 L BUN 17 Creatinine 0.9 05/08/18 22:15 Blood Culture - Preliminary Blood - Peripheral Venous NO GROWTH OBTAINED AFTER 72 HOURS, INCUBATION TO CONTINUE FOR 2 DAYS. 05/08/18 22:10 Blood Culture - Preliminary Blood - Peripheral Venous NO GROWTH OBTAINED AFTER 72 HOURS, INCUBATION TO CONTINUE FOR 2 DAYS. 05/09/18 09:15 Urine Culture - Final Urine - Urine Clean Catch NO GROWTH OBTAINED 82F with multiple medical problems presents to the ER at the direction of her oncologist due to tachycardia found to be in A fib with RVR. Hematology/ oncology consulted for history of cancer and being thrombocytopenic in the setting of anticoagulation. Problem List: Anal cancer s/p chemo radiation A fib with RVR on eliquis Thrombocytopenia in the setting of anticoagulation CHF exacerbation shortness of breath chronic interstitial lung disease on home o2 PRN Plan: continue to trend CBC for platelet count Transfuse platelets PRN if platelet count drops below 10K or if patient has episodes of bleeding or febrile continue to hold eliquis in the setting of thrombocytopenia no evidence of bleeding cardiology evaluation appreciated rest of management per primary medical team appreciate this consultative opportunity appreciate hospitalist team taking care of Dr. Oneil's patient will follow
--- NOTE | 2018-05-12 14:06 | PN ---
Physical Exam: SUBJECTIVE: Patient seen and examined this morning. Docena some SOB overnight and congestion. No acute overnight events as per nursing staff. OBJECTIVE: Vital Signs Period Temp Pulse Resp BP Sys/Rao Pulse Ox Last 24 Hr 97.3 F-98.3 F 101-121 16-18 94-140/49-64 92-97 GENERAL: A&Ox3 HEAD: NCAT EYES: PERRL, EOMI, wearing glasses ENT: Oropharynx clear without exudates, moist mucous membranes. NECK: No JVD LUNGS: Wheezing improved HEART: Irregularly, Irregular, No murmur ABDOMEN: Soft, nontender, nondistended, + bowel sounds EXTREMITIES: 2+ pulses, no edema. NEUROLOGICAL: Cranial nerves II through XII grossly intact. Normal speech. Laboratory Results - last 24 hr 05/12/18 05/12/18 06:45 06:45 WBC 5.1 RBC 3.34 L Hgb 11.2 Hct 34.8 MCV 104.0 H MCH 33.6 MCHC 32.3 RDW 17.8 H Plt Count 27 L* D MPV 11.1 Absolute Neuts (auto) 3.7 Neutrophils % 71.8 Lymphocytes % 10.9 D Monocytes % 14.6 H Eosinophils % 2.1 D Basophils % 0.6 Nucleated RBC % 0 Sodium 139 Potassium 3.9 Chloride 108 H Carbon Dioxide 25 Anion Gap 7 L BUN 17 Creatinine 0.9 Creat Clearance w eGFR > 60 Random Glucose 84 Calcium 8.0 L Phosphorus 3.0 Magnesium 1.9 Total Bilirubin 0.5 AST 16 ALT 10 L Alkaline Phosphatase 52 Total Protein 5.6 L Albumin 2.4 L Microbiology 05/08/18 22:15 Blood - Peripheral Venous Blood Culture - Preliminary NO GROWTH OBTAINED AFTER 72 HOURS, INCUBATION TO CONTINUE FOR 2 DAYS. 05/08/18 22:10 Blood - Peripheral Venous Blood Culture - Preliminary NO GROWTH OBTAINED AFTER 72 HOURS, INCUBATION TO CONTINUE FOR 2 DAYS. 05/09/18 09:15 Urine - Urine Clean Catch Urine Culture - Final NO GROWTH OBTAINED Active Medications Alprazolam (Xanax -) 0.25 mg PO BID [facility] Last Admin: 05/12/18 09:31 Dose: 0.25 mg Docusate Sodium (Colace -) 100 mg PO TID [facility] Last Admin: 05/12/18 13:34 Dose: 100 mg Furosemide (Lasix -) 20 mg PO DAILY [facility] Last Admin: 05/12/18:31 Dose: 20 mg IV Flush (Noble-Cath Flush) 10 ml IVPUSH PRN PRN PRN Reason: FLUSH Megestrol Acetate (Megace Oral Suspension -) 400 mg PO DAILY [facility] Last Admin: 05/12/18:31 Dose: 400 mg Metoprolol Tartrate (Lopressor -) 25 mg PO TID [facility] Last Admin: 05/12/18 13:34 Dose: 25 mg Ondansetron HCl (Zofran Odt -) 8 mg SL Q8H PRN PRN Reason: NAUSEA AND/OR VOMITING Pantoprazole Sodium (Protonix -) 40 mg PO DAILY [facility] Last Admin: 05/12/18: Dose: 40 mg Sucralfate (Carafate Oral Suspension -) 1 gm PO QID [facility] Last Admin: 05/12/18 13:34 Dose: 1 gm IMAGING: -EKG: ATRIAL FIBRILLATION WITH RAPID VENTRICULAR RESPONSE, NONSPECIFIC T WAVE ABNORMALITY, VR 108, QTc 423 -CXR: Since 02/24/2018, the chronic interstitial and nodular changes with some alveolar components, prominent mediastinum and right port persist. -CTA: No definite CT evidence of pulmonary embolism. As on a prior CT exam of there is prominent bilateral interstitial thickening within the upper and lower lung walsh consistent with chronic interstitial lung disease. Possible mildly increased interstitial thickening is seen bilaterally since the prior exam which could be on the basis of additional chronic interstitial changes versus representing superimposed interstitial pneumonitis or interstitial vascular congestion. Clinical/laboratory correlation is suggested. Cardiomegaly is noted as on the prior study. Stable mild mediastinal and bilateral hilar lymphadenopathy is seen which is probably hyperplastic in nature. There has been interval insertion of a right internal jugular venous catheter with the catheter tip at the level of the superior cavoatrial junction. Stable 2.4 cm right adrenal adenoma -ECHO: LV Size, thickness, function are normal. LA moderately dilated, RA mildly dilated. Moderate MR and TR, Mild AR. ASSESSMENT/PLAN: 82 y/o female with PMHx of anal cancer (S/P Chemo and Radiation), Afib (on eliquis), CHF, and anxiety presents to the ED from Dr. Oneil's office for tachycardia and SOB. #Thrombocytopenia -S/P chemo with hx of thrombocytopenia requiring transfusion in the past -S/P 1 units of platelets given this visit -Continue to Hold Elliquis, PLT count this am dropped to 27 -Hematology (Dr. Oneil) consulted, Appreciate Rec's -Will Transfuse if bleeding or platelets less than 15k #Tachycardia -Likely due to AFib with RVR (CHADSVASC 5) -Rate still above goal -EKG, Echo noted Noted above -Metoprolol dose change to Q8H -Elliquis held in the setting of Thrombocytopenia -Cardiology (Dr. Johnston) consulted, Appreciate Rec's #Hypokalemia -Replete -Will keep K+ at 4-4.5 #SOB -Likely to due Acute CHF Exacerbation 2/2 Afib; Still consider Interstitial Lung disease -BNP: 2876 -ECHO, CXR, CTA Noted above -Continue Lasix -Strict I&Os, Daily weights -Continue Supplemental O2 HS -Patient continues to wheeze; Pulmonology (Dr. Angel) Consulted #Chest Pressure -R/O ACS -Troponin <0.02 X2, EKG Noted above #Hx of Anxiety -Continue home dose Xanax #Nausea -Continue Zofran #FEN -PO Fluids -Will keep K+ 4-4.5, Mg 2-2.4, Phos 2.5-4.9 -Regular Diet #PPx -DVT: Early Ambulation; Elliquis held in the setting of Thrombocytopenia Full code Visit type - Emergency Visit Emergency Visit: Yes ED Registration Date: 05/07/18 Care time: The patient presented to the Emergency Department on the above date and was hospitalized for further evaluation of their emergent condition. - New Patient This patient is new to me today: No - Critical Care Critical Care patient: No - Discharge Referral Referred to [facility] Med P.C.: No
--- NOTE | 2018-05-12 15:38 | PN ---
Teaching Attending Note Name of Resident: Wendy Perry ATTENDING PHYSICIAN STATEMENT I saw and evaluated the patient. I reviewed the resident's note and discussed the case with the resident. I agree with the resident's findings and plan as documented. SUBJECTIVE: Patient is on Oxygen at home, feels better, no fever or chills. OBJECTIVE: Vital Signs Temperature 97.5 F L 05/12/18 13:30 Pulse Rate 107 H 05/12/18 13:30 Respiratory Rate 20 05/12/18 13:30 Blood Pressure 108/42 L 05/12/18 13:30 O2 Sat by Pulse Oximetry (%) 92 L 05/12/18 09:00 GENERAL: Awake, alert, and fully oriented, in no acute distress. Very nice lady. HEAD: Normal with no signs of trauma. EYES: Pupils equal, round and reactive to light, extraocular movements intact. EARS, NOSE, THROAT: Moist mucous membranes. LUNGS: poor indicatory effort, positive for wheezing upper posterior chest. No accessory muscle use. HEART: irregularly irregular with RVR rate of 107 today. ABDOMEN: Soft, nontender, ND, positive BS, no guarding, no rebound, no masses. EXTREMITIES: 2+ pulses, warm, well-perfused. No calf tenderness. No peripheral edema. NEUROLOGICAL: Cranial nerves II-XII intact. Normal speech. PSYCHIATRIC: Cooperative. Good eye contact. Appropriate mood and affect. CBCD WBC 5.1 K/mm3 (4.0-10.0) 05/12/18 06:45 RBC 3.34 M/mm3 (3.60-5.2) L 05/12/18 06:45 Hgb 11.2 GM/dL (10.7-15.3) 05/12/18 06:45 Hct 34.8 % (32.4-45.2) 05/12/18 06:45 MCV 104.0 fl (80-96) H 05/12/18 06:45 MCHC 32.3 g/dl (32.0-36.0) 05/12/18 06:45 RDW 17.8 % (11.6-15.6) H 05/12/18 06:45 Plt Count 27 K/MM3 (134-434) L* D 05/12/18 06:45 MPV 11.1 fl (7.5-11.1) 05/12/18 06:45 CMP Sodium 139 mmol/L (136-145) 05/12/18 06:45 Potassium 3.9 mmol/L (3.5-5.1) 05/12/18 06:45 Chloride 108 mmol/L (98-107) H 05/12/18 06:45 Carbon Dioxide 25 mmol/L (21-32) 05/12/18 06:45 Anion Gap 7 MMOL/L (8-16) L 05/12/18 06:45 BUN 17 mg/dL (7-18) 05/12/18 06:45 Creatinine 0.9 mg/dL (0.55-1.3) 05/12/18 06:45 Creat Clearance w eGFR > 60 (>60) 05/12/18 06:45 Random Glucose 84 mg/dL (74-106) 05/12/18 06:45 Calcium 8.0 mg/dL (8.5-10.1) L 05/12/18 06:45 Total Bilirubin 0.5 mg/dL (0.2-1) 05/12/18 06:45 AST 16 U/L (15-37) 05/12/18 06:45 ALT 10 U/L (13-61) L 05/12/18 06:45 Alkaline Phosphatase 52 U/L (45-117) 05/12/18 06:45 Total Protein 5.6 g/dl (6.4-8.2) L 05/12/18 06:45 Albumin 2.4 g/dl (3.4-5.0) L 05/12/18 06:45 CARDIAC ENZYMES Creatine Kinase 45 IU/L (26-192) 05/07/18 14:55 Troponin I < 0.02 ng/ml (0.00-0.05) 05/07/18 23:38 Current Medications Generic Name Dose Route Start Last Admin Trade Name Freq PRN Reason Stop Dose Admin Alprazolam 0.25 mg 05/08/18 10:00 05/12/18 09:31 Xanax - PO 0.25 mg BID JAKUB Administration Docusate Sodium 100 mg 05/10/18 22:00 05/12/18 13:34 Colace - PO 100 mg TID JAKUB Administration Furosemide 20 mg 05/08/18 10:00 05/12/18 09:31 Lasix - PO 20 mg DAILY JAKUB Administration IV Flush 10 ml 05/07/18 23:41 Noble-Cath Flush IVPUSH PRN PRN FLUSH Megestrol Acetate 400 mg 05/08/18 10:00 05/12/18 09:31 Megace Oral Suspension - PO 400 mg DAILY JAKUB Administration Metoprolol Tartrate 25 mg 05/11/18 12:15 05/12/18 13:34 Lopressor - PO 25 mg TID JAKUB Administration Ondansetron HCl 8 mg 05/07/18 23:41 Zofran Odt - SL Q8H PRN NAUSEA AND/OR VOMITING Pantoprazole Sodium 40 mg 05/09/18 10:00 05/12/18 09:31 Protonix - PO 40 mg DAILY JAKUB Administration Sucralfate 1 gm 05/09/18 10:00 05/12/18 13:34 Carafate Oral Suspension - PO 1 gm QID JAKUB Administration Home Medications Medication Instructions Recorded Alprazolam [Xanax] 0.25 mg PO TID PRN MDD 0.75 10/18/17 Ondansetron [Zofran *Odt*] 8 mg PO Q8H PRN 12/31/17 Megestrol Acetate Oral Susp 400 mg PO DAILY 30 Days #1 cup 01/05/18 [Megace Oral Suspension -] Apixaban [Eliquis -] 2.5 mg PO BID #60 tablet 02/22/18 Furosemide [Lasix -] 20 mg PO DAILY #7 tablet 02/22/18 Noble-Cath Flush [Noble-Cath Flush 10 ml IVPUSH PRN PRN ml 02/22/18 -] Metoprolol Tartrate [Lopressor -] 25 mg PO BID tablet 02/26/18 Docusate Sodium [Colace] 100 mg PO BID 05/07/18 Albuterol 0.083% Nebulizer Ela 1 vial NEB Q6H 05/08/18 [Ventolin 0.083% Nebulizer Soln -] Megestrol Acetate 1 tab PO DAILY 05/08/18 Pantoprazole Sodium 1 tab PO DAILY 05/08/18 Sucralfate [Carafate] 10 ml PO QID 05/08/18 CTA: Clinical information: evaluate for pulmonary embolism Multiplanar imaging was performed following the intravenous administration of nonionic contrast. No definite pulmonary embolus is noted allowing for partially obscuring respiratory motion artifact. As noted on a prior CT exam of 10/23/2017 extensive bilateral groundglass interstitial thickening is seen within the upper and lower lung walsh consistent with chronic interstitial disease. The degree of interstitial thickening may be mildly increased within the upper and lower lung walsh bilaterally since the previous exam. No pleural effusion is identified. Left atrial dilatation is again noted. No pericardial effusion is seen. As on the prior study several mildly enlarged stable pretracheal mediastinal and bilateral hilar lymph nodes are seen probably on a reactive basis. There is no aortic aneurysm. The trachea and central bronchi appear unremarkable. The visualized osseous structures demonstrate no gross acute pathology. 2.4 cm right adrenal adenoma. IMPRESSION: No definite CT evidence of pulmonary embolism. As on a prior CT exam of 10/23/2017 there is prominent bilateral interstitial thickening within the upper and lower lung walsh consistent with chronic interstitial lung disease. Possible mildly increased interstitial thickening is seen bilaterally since the prior exam which could be on the basis of additional chronic interstitial changes versus representing superimposed interstitial pneumonitis or interstitial vascular congestion. Clinical/ laboratory correlation is suggested. Cardiomegaly is noted as on the prior study. Stable mild mediastinal and bilateral hilar lymphadenopathy is seen which is probably hyperplastic in nature. There has been interval insertion of a right internal jugular venous catheter with the catheter tip at the level of the superior cavoatrial junction. Stable 2.4 cm right adrenal adenoma. ASSESSMENT AND PLAN: Patient is a 82 y/o female with a history of anal cancer, afib on eliquis, CHF, and anxiety who presents to the ED from her oncologists office (Dr. Oneil) for tachycardia with chest pain and shortness of breath. # Extensive ILD on CTA with wheezing with BL hilar lymph nodes : will get pulmonary to evaluate the patient, for consult. On home oxygen. Patient does not know why she is on Oxygen. # Right Adrenal adenoma 2.4cm; further w/u as an outpatient. #Thrombocytopenia will continue to hold Eliquis , discussed with hem/onc. to continue to monitor the platelets. if drops below 20K to transfuse. will repeat the level in am. if continues to drop will transfuse another unit of platelets as per Hem/onc. # Acute CP , acs is ruled out, trop. negative x2 sets. cardio appreciated. #Afib with RVR with CHADSVASC 5, cardio on the case. On Eliquis (on Hold) due to having low platelets. #Acute CHF exacerbation on Lasix 20mg daily #anxiety: continue xanax .25 mg #nausea continue Zofran prn , QTC 449 Full code at this time. possible dc in am
--- NOTE | 2018-05-12 22:03 | PN ---
Progress Note (short form) - Note Progress Note: PAtients een and examied Slowly gaining strength back AFVSS Cardiovascular: Yes: Pulse Irregular. No: Murmur Respiratory: Yes: scattefed Rhonchi (bilaterally) Gastrointestinal: Yes: Normal Bowel Sounds, Soft. No: Tenderness Edema: LLE: Trace, RLE: Trace Psychiatric: Yes: Alert, Oriented Assessment/Plan 82F with multiple medical problems presents to the ER at the direction of her oncologist due to tachycardia found to be in A fib with RVR. Hematology/ oncology consulted for history of cancer and being thrombocytopenic in the setting of anticoagulation. Problem List: Anal cancer s/p chemo radiation A fib with RVR on eliquis Thrombocytopenia -- decreased marrow reserve post recent chemo/RT CHF exacerbation shortness of breath chronic interstitial lung disease on home o2 PRN d/c planning per primary team may need platelets prior to discharge. will meed close f/u cbc outpatient
[2018-05-13 06:09] LABS: BASO % 0.8 % (0-2.0); EOS % 2.6 % (0-4.5); HEMATOCRIT 33.6 % (32.4-45.2); HEMOGLOBIN 11.1 GM/dL (10.7-15.3); MCH 34.2 pg (25.7-33.7); MCHC 33.1 g/dl (32.0-36.0); MEAN CELL VOLUME 103.3 fl (80-96); MEAN PLT VOLUME 11.1 fl (7.5-11.1); MONO % 17.8 % (3.8-10.2); NEUT % 64.8 % (42.8-82.8); PLATELET COUNT 25 K/MM3 (134-434); RBC 3.25 M/mm3 (3.60-5.2); RDW 17.5 % (11.6-15.6); WHITE BLOOD COUNT 4.7 K/mm3 (4.0-10.0)
[2018-05-13] MEDS: METOPROLOL TARTRATE 25 MG TABLET (FP) PO SCH ×4 (06:12→21:12)
[2018-05-13] MEDS: DOCUSATE SODIUM 100 MG CAPSULE (FP) PO SCH ×3 (06:13→21:11)
[2018-05-13] MEDS ORDERED: PT OWN MED DRAWER 7, Y5N ONE (08:59)
[2018-05-13] MEDS: SUCRALFATE 1 GM/10 ML UNIT DOSE CUPS PO SCH ×4 (09:06→21:11)
[2018-05-13] MEDS: ALPRAZolam 0.25 MG TABLET PO SCH ×2 (09:06→21:11)
[2018-05-13] MEDS: PANTOPRAZOLE 40 MG TABLET (FP) PO SCH (09:06)
[2018-05-13] MEDS: MEGESTROL ACETATE 400 MG/10 ML UNIT DOSE CUP PO SCH (09:07)
[2018-05-13] MEDS: FUROSEMIDE 20 MG TABLET (FP) PO SCH (12:13)
--- NOTE | 2018-05-13 13:16 | PN ---
Progress Note (short form) - Note Progress Note: PULMONARY CONSULTATION DICTATED 05/13/18 IMP ACUTE ON CHRONIC HYPOXEMIC RESPIRATORY FAILURE ILD ? ETIOLOGY DIASTOLIC HF CP ? CARDIAC AFIB THROMBOCYTOPENIA HYPOTENSION ANAL CA S/P RT/CHEMO ANXIETY PLAN MONITOR BP O2 LASIX TOLERATED MONITOR LYTES F/U CHEST X-RAY PFTS OUTPATIENT RATE CONTROL PER CARDIOLOGY MONITOR CBC,PLT CT DR RODGERS Problem List - Problems (1) Acute on chronic respiratory failure with hypoxemia Code(s): J96.21 - ACUTE AND CHRONIC RESPIRATORY FAILURE WITH HYPOXIA (2) Anxiety and depression Code(s): F41.9 - ANXIETY DISORDER, UNSPECIFIED; F32.9 - MAJOR DEPRESSIVE DISORDER, SINGLE EPISODE, UNSPECIFIED (3) Chest tightness Code(s): R07.89 - OTHER CHEST PAIN (4) Thrombocytopenia Code(s): D69.6 - THROMBOCYTOPENIA, UNSPECIFIED (5) Anal cancer Code(s): C21.0 - MALIGNANT NEOPLASM OF ANUS, UNSPECIFIED (6) Atrial fibrillation Code(s): I48.91 - UNSPECIFIED ATRIAL FIBRILLATION Qualifiers: Atrial fibrillation type: unspecified Qualified Code(s): I48.91 - Unspecified atrial fibrillation (7) CHF (congestive heart failure) Code(s): I50.9 - HEART FAILURE, UNSPECIFIED (8) Diastolic CHF Code(s): I50.30 - UNSPECIFIED DIASTOLIC (CONGESTIVE) HEART FAILURE (9) Interstitial lung disease Code(s): J84.9 - INTERSTITIAL PULMONARY DISEASE, UNSPECIFIED
--- NOTE | 2018-05-13 13:54 | PN ---
Progress Note (short form) - Note Progress Note: Heme/Onc Patient seen and examined at bedside feels well no complaints denies bleeding Seen by pulmonology - patient in good spirits since being seen by Dr. Angel Platelets 25K Primary team gave 1 unit monodonor platelets PE: Vital Signs Temperature 97.4 F L 05/13/18 11:34 Pulse Rate 108 H 05/13/18 11:34 Respiratory Rate 18 05/13/18 11:34 Blood Pressure 77/50 L 05/13/18 11:34 O2 Sat by Pulse Oximetry (%) 97 05/13/18 09:00 Constitutional: Yes: No Distress, Calm, Thin Eyes: Yes: Conjunctiva Clear, EOM Intact HENT: Yes: Atraumatic, Normocephalic Neck: Yes: Supple, Trachea Midline Cardiovascular: Yes: Pulse Irregular. No: Murmur Respiratory: Yes: Regular, Rhonchi (bilaterally) Gastrointestinal: Yes: Normal Bowel Sounds, Soft. No: Tenderness Edema: Yes (trace nonpitting) Edema: LLE: Trace, RLE: Trace Psychiatric: Yes: Alert, Oriented 05/13/18 05:40 WBC 4.7 RBC 3.25 L Hgb 11.1 Hct 33.6 MCV 103.3 H MCHC 33.1 RDW 17.5 H Plt Count 25 L* Neutrophils % 64.8 Lymphocytes % 14.0 D Monocytes % 17.8 H Eosinophils % 2.6 Basophils % 0.8 05/08/18 22:15 Blood Culture - Preliminary Blood - Peripheral Venous NO GROWTH OBTAINED AFTER 96 HOURS, INCUBATION TO CONTINUE FOR 1 DAYS. 05/08/18 22:10 Blood Culture - Preliminary Blood - Peripheral Venous NO GROWTH OBTAINED AFTER 96 HOURS, INCUBATION TO CONTINUE FOR 1 DAYS. 05/09/18 09:15 Urine Culture - Final Urine - Urine Clean Catch NO GROWTH OBTAINED 82F with multiple medical problems presents to the ER at the direction of her oncologist due to tachycardia found to be in A fib with RVR. Hematology/ oncology consulted for history of cancer and being thrombocytopenic in the setting of anticoagulation. Problem List: Anal cancer s/p chemo radiation A fib with RVR on eliquis Thrombocytopenia in the setting of anticoagulation CHF exacerbation shortness of breath chronic interstitial lung disease on home o2 PRN Plan: continue to trend CBC for platelet count Transfuse platelets PRN if platelet count drops below 10K or if patient has episodes of bleeding or febrile Patient given 1 unit mono donor platelets as they anticipated discharge today continue to hold eliquis in the setting of thrombocytopenia no evidence of bleeding cardiology evaluation appreciated rest of management per primary medical team appreciate this consultative opportunity appreciate hospitalist team taking care of Dr. Oneil's patient will follow
--- NOTE | 2018-05-13 14:21 | PN ---
Physical Exam: SUBJECTIVE: Patient seen and examined this morning. No new complaints. No acute overnight events as per nursing staff. OBJECTIVE: Vital Signs Period Temp Pulse Resp BP Sys/Rao Pulse Ox Last 24 Hr 97.4 F-98.7 F 96-122 18-20 77-101/44-67 97-97 GENERAL: A&Ox3 HEAD: NCAT EYES: PERRL, EOMI ENT: Oropharynx clear without exudates, moist mucous membranes. NECK: No JVD LUNGS: Wheezing improved HEART: Irregularly, Irregular, No murmur ABDOMEN: Soft, nontender, nondistended, + bowel sounds EXTREMITIES: 2+ pulses, no edema. NEUROLOGICAL: Cranial nerves II through XII grossly intact. Normal speech. Laboratory Results - last 24 hr 05/13/18 05:40 WBC 4.7 RBC 3.25 L Hgb 11.1 Hct 33.6 MCV 103.3 H MCH 34.2 H MCHC 33.1 RDW 17.5 H Plt Count 25 L* MPV 11.1 Absolute Neuts (auto) 3.0 Neutrophils % 64.8 Lymphocytes % 14.0 D Monocytes % 17.8 H Eosinophils % 2.6 Basophils % 0.8 Nucleated RBC % 0 Microbiology 05/08/18 22:15 Blood - Peripheral Venous Blood Culture - Preliminary NO GROWTH OBTAINED AFTER 96 HOURS, INCUBATION TO CONTINUE FOR 1 DAYS. 05/08/18 22:10 Blood - Peripheral Venous Blood Culture - Preliminary NO GROWTH OBTAINED AFTER 96 HOURS, INCUBATION TO CONTINUE FOR 1 DAYS. 05/09/18 09:15 Urine - Urine Clean Catch Urine Culture - Final NO GROWTH OBTAINED Active Medications Alprazolam (Xanax -) 0.25 mg PO BID [facility] Last Admin: 05/13/18 09:06 Dose: 0.25 mg Docusate Sodium (Colace -) 100 mg PO TID [facility] Last Admin: 05/13/18 06:13 Dose: 100 mg Furosemide (Lasix -) 20 mg PO DAILY [facility] Last Admin: 05/13/18 12:13 Dose: Not Given IV Flush (Noble-Cath Flush) 10 ml IVPUSH PRN PRN PRN Reason: FLUSH Megestrol Acetate (Megace Oral Suspension -) 400 mg PO DAILY [facility] Last Admin: 05/13/18 09:07 Dose: 400 mg Metoprolol Tartrate (Lopressor -) 25 mg PO TID [facility] Last Admin: 05/13/18 08:22 Dose: 25 mg Ondansetron HCl (Zofran Odt -) 8 mg SL Q8H PRN PRN Reason: NAUSEA AND/OR VOMITING Pantoprazole Sodium (Protonix -) 40 mg PO DAILY [facility] Last Admin: 05/13/18 09:06 Dose: 40 mg Sucralfate (Carafate Oral Suspension -) 1 gm PO QID [facility] Last Admin: 05/13/18 09:06 Dose: 1 gm IMAGING: -EKG: ATRIAL FIBRILLATION WITH RAPID VENTRICULAR RESPONSE, NONSPECIFIC T WAVE ABNORMALITY, VR 108, QTc 423 -CXR: Since 02/24/2018, the chronic interstitial and nodular changes with some alveolar components, prominent mediastinum and right port persist. -CTA: No definite CT evidence of pulmonary embolism. As on a prior CT exam of there is prominent bilateral interstitial thickening within the upper and lower lung walsh consistent with chronic interstitial lung disease. Possible mildly increased interstitial thickening is seen bilaterally since the prior exam which could be on the basis of additional chronic interstitial changes versus representing superimposed interstitial pneumonitis or interstitial vascular congestion. Clinical/laboratory correlation is suggested. Cardiomegaly is noted as on the prior study. Stable mild mediastinal and bilateral hilar lymphadenopathy is seen which is probably hyperplastic in nature. There has been interval insertion of a right internal jugular venous catheter with the catheter tip at the level of the superior cavoatrial junction. Stable 2.4 cm right adrenal adenoma -ECHO: LV Size, thickness, function are normal. LA moderately dilated, RA mildly dilated. Moderate MR and TR, Mild AR. ASSESSMENT/PLAN: 82 y/o female with PMHx of anal cancer (S/P Chemo and Radiation), Afib (on eliquis), CHF, and anxiety presents to the ED from Dr. Oneil's office for tachycardia and SOB. #Thrombocytopenia -S/P chemo with hx of thrombocytopenia requiring transfusion in the past -S/P 2 units of platelets given this visit -Continue to Hold Elliquis, PLT count this am dropped -Hematology (Dr. Oneil) consulted, Appreciate Rec's -Will Transfuse if bleeding or platelets less than 15k #Tachycardia -Likely due to AFib with RVR (CHADSVASC 5) -Rate still above goal -EKG, Echo noted Noted above -Metoprolol dose changed to Q8H -Elliquis held in the setting of Thrombocytopenia -Cardiology (Dr. Johnston) consulted, Appreciate Rec's #Hypokalemia -Repleted -Will keep K+ at 4-4.5 #SOB -Likely to due Acute CHF Exacerbation 2/2 Afib; Still consider Interstitial Lung disease -BNP: 2876 -ECHO, CXR, CTA Noted above -Continue Lasix -Strict I&Os, Daily weights -Continue Supplemental O2 HS -Pulmonology (Dr. Angel) Consulted, Appreciate Rec's #Chest Pressure -R/O ACS -Troponin <0.02 X2, EKG Noted above #Hx of Anxiety -Continue home dose Xanax #Nausea -Continue Zofran #FEN -PO Fluids -Will keep K+ 4-4.5, Mg 2-2.4, Phos 2.5-4.9 -Regular Diet #PPx -DVT: Early Ambulation; Elliquis held in the setting of Thrombocytopenia Full code Visit type - Emergency Visit Emergency Visit: Yes ED Registration Date: 05/07/18 Care time: The patient presented to the Emergency Department on the above date and was hospitalized for further evaluation of their emergent condition. - New Patient This patient is new to me today: No - Critical Care Critical Care patient: No - Discharge Referral Referred to [facility] No
--- NOTE | 2018-05-13 14:38 | PN ---
Progress Note, Physician Chief Complaint: Pt A&Ox3; OOB in chair, she had a fitful sleep because of worrying that she might have to go to a [facility].She walked up and down the hallway yesterday , but was told not to do so today due to low BP. Denies chest tightness or dyspnea presently. History of Present Illness: The patient is an 82-year-old white female (bShaniqua Jasmin) with past medical history Afib, HTN, Anal CA, chronic interstitial lung disease, diastolic CHF, anxiety/depression, presents to the emergency department with chest pressure since January. The patient reports since January shes been having chest pressure since finishing chemo/radiation denies the discomfort radiation to the back. The patient reports associates symptoms of shortness of breath, states shes on O2 at home, unsure how much. Denies urinary complain, cough, nausea, vomiting. Allergies: Sulfa (Sulfonamide abx) Oncologist: Wilberto Oneil MD - Current Medication List Current Medications: Active Medications Alprazolam (Xanax -) 0.25 mg PO BID [facility] Last Admin: 05/13/18 09:06 Dose: 0.25 mg Docusate Sodium (Colace -) 100 mg PO TID [facility] Last Admin: 05/13/18 06:13 Dose: 100 mg Furosemide (Lasix -) 20 mg PO DAILY [facility] Last Admin: 05/13/18 12:13 Dose: Not Given IV Flush (Noble-Cath Flush) 10 ml IVPUSH PRN PRN PRN Reason: FLUSH Megestrol Acetate (Megace Oral Suspension -) 400 mg PO DAILY [facility] Last Admin: 05/13/18 09:07 Dose: 400 mg Metoprolol Tartrate (Lopressor -) 25 mg PO TID [facility] Last Admin: 05/13/18 08:22 Dose: 25 mg Ondansetron HCl (Zofran Odt -) 8 mg SL Q8H PRN PRN Reason: NAUSEA AND/OR VOMITING Pantoprazole Sodium (Protonix -) 40 mg PO DAILY [facility] Last Admin: 05/13/18 09:06 Dose: 40 mg Sucralfate (Carafate Oral Suspension -) 1 gm PO QID [facility] Last Admin: 05/13/18 09:06 Dose: 1 gm - Objective Vital Signs: Vital Signs Temperature 97.4 F L 05/13/18 11:34 Pulse Rate 108 H 05/13/18 11:34 Respiratory Rate 18 05/13/18 11:34 Blood Pressure 77/50 L 05/13/18 11:34 O2 Sat by Pulse Oximetry (%) 97 05/13/18 09:00 Constitutional: Yes: Anxious, Thin Eyes: Yes: WNL HENT: Yes: WNL Neck: Yes: WNL Cardiovascular: Yes: Pulse Irregular, S1 (varies in intensity), S2 Respiratory: Yes: Diminished, Other (bilateral coarse crackles) ...Rectal Exam: Yes: Deferred Genitourinary: No: Anuria Breast(s): Yes: WNL Musculoskeletal: Yes: Muscle Weakness Extremities: Yes: Cool Edema: No Peripheral Pulses WNL: Yes Neurological: Yes: Alert, Oriented, Weakness Psychiatric: Yes: Alert, Oriented, Other (anxiety) Labs: CBC, BMP 05/13/18 05:40 05/12/18 06:45 INR, PTT INR 1.42 (0.83-1.09) H 05/07/18 14:55 Abnormal Lab Results 05/12/18 05/13/18 06:45 05:40 RBC 3.25 L MCV 103.3 H MCH 34.2 H RDW 17.5 H Plt Count 25 L* Monocytes % 17.8 H Chloride 108 H Anion Gap 7 L Calcium 8.0 L ALT 10 L Total Protein 5.6 L Albumin 2.4 L Problem List - Problems (1) Anxiety and depression Assessment/Plan: Pt insists she does not want to go to a [facility], having recently spent several weeks in one for rehabilitation, and hearing stories of poor treatment in other facilities. Code(s): F41.9 - ANXIETY DISORDER, UNSPECIFIED; F32.9 - MAJOR DEPRESSIVE DISORDER, SINGLE EPISODE, UNSPECIFIED (2) Thrombocytopenia Assessment/Plan: Platelets remains profoundly low. F/u with heme-onc. NOAC (being given for AF) held. As discussed with Dr. Oneil, steroids (being considered for use with pt's pulmonary disease) may increase platelets. Code(s): D69.6 - THROMBOCYTOPENIA, UNSPECIFIED (3) Anal cancer Code(s): C21.0 - MALIGNANT NEOPLASM OF ANUS, UNSPECIFIED (4) Atrial fibrillation Assessment/Plan: On metoprolol tid for HR control. TSH WNL; afebrile. NOAC held due to low platelets. Code(s): I48.91 - UNSPECIFIED ATRIAL FIBRILLATION Qualifiers: Atrial fibrillation type: unspecified Qualified Code(s): I48.91 - Unspecified atrial fibrillation (5) Diastolic CHF Assessment/Plan: On metoprolol and furosemide; both were held earlier today due to hypotension. Consider changing furosemide 20 mg daily to IVP. F/u BUn/Cr, electrolytes, daily weight (assuming initial weight listed, 150 lbs , was an error, pt has gained a few lbs since admission), Is and Os. Pt's multiple comorbidities (including CA, AF, CHF, thrombocytopenia, and IS lung disease) with weakness, periods of hypotension and tachycardia, make evaluation to r/o CAD problematic. Consider next chest CTA with attention to coronary arteries. F/u lipid panel. Code(s): I50.30 - UNSPECIFIED DIASTOLIC (CONGESTIVE) HEART FAILURE (6) Vomiting Code(s): R11.10 - VOMITING, UNSPECIFIED Qualifiers: Vomiting type: unspecified Vomiting Intractability: intractable Nausea presence: with nausea Qualified Code(s): R11.2 - Nausea with vomiting, unspecified (7) Weakness Assessment/Plan: Encourage increased PO intake. Nutritional f/u. Code(s): R53.1 - WEAKNESS (8) Interstitial lung disease Assessment/Plan: CTA noted possible increase in IS thickening since 10/16 study. Code(s): J84.9 - INTERSTITIAL PULMONARY DISEASE, UNSPECIFIED
--- NOTE | 2018-05-13 14:56 | CONS ---
DATE OF CONSULTATION: 05/13/2018 PULMONARY CONSULTATION REFERRING PHYSICIAN: Kristina Graham MD HISTORY OF PRESENT ILLNESS: The patient is an 82-year-old white female with a past medical history of anal cancer, status post chemotherapy with 5-FU and mitomycin as well as radiation therapy. She has atrial fibrillation on Eliquis, diastolic congestive heart failure and anxiety. She is a nonsmoker with interstitial lung disease of unknown etiology. She was admitted to [facility] on May 07, 2018 secondary to tachycardia. She was in Dr. Oneil's office and at that time was noted to have tachycardia. She also complained of increasing shortness of breath and dyspnea on exertion over the past few weeks as well as chest pressure. The patient states that the chest pressure increases when she starts exercising. It improves when she sits down. She also complains of increasing shortness of breath and increasing orthopnea. She denies any fevers or chills. She states that her respiratory symptoms have been increasing in severity over the past few weeks. The patient has been hospitalized three or four times since December with similar complaints. She has been treated for CHF with some resolution of her symptoms. The patient had a previous hospitalization in January 2018 and was sent home on oxygen which she used for reduced O2 saturations into the 70s. She apparently uses this only at nighttime. She denies any history of COPD or asthma in the past. She has been maintained on Eliquis at home for atrial fibrillation. The patient was admitted with the above. For her current hospital admission, she was evaluated by Dr. Oneil as well as by Dr. Hernandez of Cardiology. The patient was placed on p.o. Lasix at 40 mg. She underwent a CTA of the chest that revealed evidence of prominent bilateral interstitial thickening in the upper and lower lung zones consistent with chronic interstitial lung disease as well as increased interstitial changes bilaterally, consistent with possible mild pulmonary vascular congestion. The patient denies any cough or hemoptysis. She denies any weight loss or night sweats. She denies any history of occupational exposure. She states that her was a heavy smoker and that she has been exposed to second-hand smoke. Her also worked with chemicals when he was employed by [employer] many years ago . Her current hospitalization has been complicated by the fact that she has been getting progressively worsening thrombocytopenia. She has also had continued complaints of chest pressure and dyspnea. PAST MEDICAL HISTORY: Again, this includes chronic interstitial lung disease, anal cancer status post radiation therapy and chemotherapy, diastolic heart failure, atrial fibrillation and anxiety. REVIEW OF SYSTEMS: Positive for orthopnea, dyspnea on exertion and chest pressure. No fever or chills, no abdominal pain. She has some lower extremity edema. CURRENT MEDICATIONS: Zofran, Megace, Xanax, Lopressor, Lasix, carafate, Protonix. PHYSICAL EXAMINATION: General: The patient is a thin white female, awake and alert, in no acute distress. Vital Signs: Her blood pressure is currently 77/50, respiratory rate 18, O2 saturation is 97% on 2 liters of oxygen. She is afebrile. HEENT: Head is normocephalic, atraumatic. Neck: Supple. Heart: Irregularly regular. S1, S2. Chest: Diffuse bilateral crackles throughout both lung walsh with a few scattered squeaks. Abdomen: Soft. Bowel sounds are positive. Extremities: Lower extremity edema. LABORATORY: WBC is 4.7, hemoglobin 11.1, hematocrit 33.6, platelet count of 25,000. Of note, her platelet count on previous hospitalizations was 196,000. BUN 17, creatinine 0.9, TSH of 5.7. BNP is 2876. A chest CT is as noted earlier. IMPRESSION: 1. Advanced interstitial lung disease, etiology unknown. 2. [id number] congestive heart failure. 3. Chest pressure; rule out possible cardiac etiology. 4. Thrombocytopenia. 5. History of anal cancer status post radiation therapy and chemotherapy. 6. Atrial fibrillation. 7. Anxiety. 8. Hypotension. PLAN: 1. Continue cardiac workup. 2. Lasix as tolerated. 3. Monitor blood pressure. 4. Work up for chest pain. 5. Pulmonary function tests as an outpatient. 6. Monitor platelet count. 7. Supplemental oxygen. 8. Follow up chest x-rays. 9. Rate control as per Cardiology. 10. Hold Eliquis secondary to severe thrombocytopenia. ANILA RODGERS M.D. CELINE/[id number]
--- NOTE | 2018-05-13 20:54 | PN ---
Teaching Attending Note Name of Resident: Wendy Perry ATTENDING PHYSICIAN STATEMENT I saw and evaluated the patient. I reviewed the resident's note and discussed the case with the resident. I agree with the resident's findings and plan as documented. SUBJECTIVE: Patient is feeling better with no acute distress, getting platelets. OBJECTIVE: Vital Signs Temperature 97.7 F 05/13/18 17:55 Pulse Rate 104 H 05/13/18 17:55 Respiratory Rate 18 05/13/18 17:55 Blood Pressure 108/74 05/13/18 17:55 O2 Sat by Pulse Oximetry (%) 97 05/13/18 09:00 GENERAL: Awake, alert, and fully oriented, in no acute distress. Very nice lady. HEAD: Normal with no signs of trauma. EYES: Pupils equal, round and reactive to light, extraocular movements intact. EARS, NOSE, THROAT: Moist mucous membranes. LUNGS: poor indicatory effort, positive for wheezing upper posterior chest. No accessory muscle use. HEART: irregularly irregular with RVR rate of 107 today. ABDOMEN: Soft, nontender, ND, positive BS, no guarding, no rebound, no masses. EXTREMITIES: 2+ pulses, warm, well-perfused. No calf tenderness. No peripheral edema. NEUROLOGICAL: Cranial nerves II-XII intact. Normal speech. PSYCHIATRIC: Cooperative. Good eye contact. Appropriate mood and affect. CBCD WBC 4.7 K/mm3 (4.0-10.0) 05/13/18 05:40 RBC 3.25 M/mm3 (3.60-5.2) L 05/13/18 05:40 Hgb 11.1 GM/dL (10.7-15.3) 05/13/18 05:40 Hct 33.6 % (32.4-45.2) 05/13/18 05:40 MCV 103.3 fl (80-96) H 05/13/18 05:40 MCHC 33.1 g/dl (32.0-36.0) 05/13/18 05:40 RDW 17.5 % (11.6-15.6) H 05/13/18 05:40 Plt Count 25 K/MM3 (134-434) L* 05/13/18 05:40 MPV 11.1 fl (7.5-11.1) 05/13/18 05:40 CMP Sodium 139 mmol/L (136-145) 05/12/18 06:45 Potassium 3.9 mmol/L (3.5-5.1) 05/12/18 06:45 Chloride 108 mmol/L (98-107) H 05/12/18 06:45 Carbon Dioxide 25 mmol/L (21-32) 05/12/18 06:45 Anion Gap 7 MMOL/L (8-16) L 05/12/18 06:45 BUN 17 mg/dL (7-18) 05/12/18 06:45 Creatinine 0.9 mg/dL (0.55-1.3) 05/12/18 06:45 Creat Clearance w eGFR > 60 (>60) 05/12/18 06:45 Random Glucose 84 mg/dL (74-106) 05/12/18 06:45 Calcium 8.0 mg/dL (8.5-10.1) L 05/12/18 06:45 Total Bilirubin 0.5 mg/dL (0.2-1) 05/12/18 06:45 AST 16 U/L (15-37) 05/12/18 06:45 ALT 10 U/L (13-61) L 05/12/18 06:45 Alkaline Phosphatase 52 U/L (45-117) 05/12/18 06:45 Total Protein 5.6 g/dl (6.4-8.2) L 05/12/18 06:45 Albumin 2.4 g/dl (3.4-5.0) L 05/12/18 06:45 CARDIAC ENZYMES Creatine Kinase 45 IU/L (26-192) 05/07/18 14:55 Troponin I < 0.02 ng/ml (0.00-0.05) 05/07/18 23:38 Current Medications Generic Name Dose Route Start Last Admin Trade Name Freq PRN Reason Stop Dose Admin Alprazolam 0.25 mg 05/08/18 10:00 05/13/18 09:06 Xanax - PO 0.25 mg BID JAKUB Administration Docusate Sodium 100 mg 05/10/18 22:00 05/13/18 14:39 Colace - PO 100 mg TID JAKUB Administration Furosemide 20 mg 05/08/18 10:00 05/13/18 12:13 Lasix - PO Not Given DAILY JAKUB IV Flush 10 ml 05/07/18 23:41 Noble-Cath Flush IVPUSH PRN PRN FLUSH Megestrol Acetate 400 mg 05/08/18 10:00 05/13/18 09:07 Megace Oral Suspension - PO 400 mg DAILY JAKUB Administration Metoprolol Tartrate 25 mg 05/11/18 12:15 05/13/18 14:39 Lopressor - PO 25 mg TID JAKUB Administration Ondansetron HCl 8 mg 05/07/18 23:41 Zofran Odt - SL Q8H PRN NAUSEA AND/OR VOMITING Pantoprazole Sodium 40 mg 05/09/18 10:00 05/13/18 09:06 Protonix - PO 40 mg DAILY JAKUB Administration Sucralfate 1 gm 05/09/18 10:00 05/13/18 17:02 Carafate Oral Suspension - PO 1 gm QID JAKUB Administration Home Medications Medication Instructions Recorded Alprazolam [Xanax] 0.25 mg PO TID PRN MDD 0.75 10/18/17 Ondansetron [Zofran *Odt*] 8 mg PO Q8H PRN 12/31/17 Megestrol Acetate Oral Susp 400 mg PO DAILY 30 Days #1 cup 01/05/18 [Megace Oral Suspension -] Apixaban [Eliquis -] 2.5 mg PO BID #60 tablet 02/22/18 Furosemide [Lasix -] 20 mg PO DAILY #7 tablet 02/22/18 Albuterol 0.083% Nebulizer Ela 1 vial NEB Q6H 05/08/18 [Ventolin 0.083% Nebulizer Soln -] Megestrol Acetate 1 tab PO DAILY 05/08/18 Pantoprazole Sodium 1 tab PO DAILY 05/08/18 Sucralfate [Carafate] 10 ml PO QID 05/08/18 Docusate Sodium [Colace -] 100 mg PO TID #90 capsule 05/13/18 Metoprolol Tartrate [Lopressor -] 25 mg PO TID #75 tablet 05/13/18 CTA: Clinical information: evaluate for pulmonary embolism Multiplanar imaging was performed following the intravenous administration of nonionic contrast. No definite pulmonary embolus is noted allowing for partially obscuring respiratory motion artifact. As noted on a prior CT exam of 10/23/2017 extensive bilateral groundglass interstitial thickening is seen within the upper and lower lung walsh consistent with chronic interstitial disease. The degree of interstitial thickening may be mildly increased within the upper and lower lung walsh bilaterally since the previous exam. No pleural effusion is identified. Left atrial dilatation is again noted. No pericardial effusion is seen. As on the prior study several mildly enlarged stable pretracheal mediastinal and bilateral hilar lymph nodes are seen probably on a reactive basis. There is no aortic aneurysm. The trachea and central bronchi appear unremarkable. The visualized osseous structures demonstrate no gross acute pathology. 2.4 cm right adrenal adenoma. IMPRESSION: No definite CT evidence of pulmonary embolism. As on a prior CT exam of 10/23/2017 there is prominent bilateral interstitial thickening within the upper and lower lung walsh consistent with chronic interstitial lung disease. Possible mildly increased interstitial thickening is seen bilaterally since the prior exam which could be on the basis of additional chronic interstitial changes versus representing superimposed interstitial pneumonitis or interstitial vascular congestion. Clinical/ laboratory correlation is suggested. Cardiomegaly is noted as on the prior study. Stable mild mediastinal and bilateral hilar lymphadenopathy is seen which is probably hyperplastic in nature. There has been interval insertion of a right internal jugular venous catheter with the catheter tip at the level of the superior cavoatrial junction. Stable 2.4 cm right adrenal adenoma. ASSESSMENT AND PLAN: Patient is a 82 y/o female with a history of anal cancer, afib on eliquis, CHF, and anxiety who presents to the ED from her oncologists office (Dr. Oneil) for tachycardia with chest pain and shortness of breath. # Extensive ILD on CTA with wheezing with BL hilar lymph nodes , pulmonary appreciated . On home oxygen continue . Patient does not know why she is on Oxygen. # Right Adrenal adenoma 2.4cm; further w/u as an outpatient. #Thrombocytopenia will continue to hold Eliquis , will transfuse another unit of platelets since platelets dropped again. discussed with hem/onc. to continue to monitor the platelets. continue to transfuse if drops below 20K to transfuse. repeat the level in am. # Acute CP , acs is ruled out, trop. negative x2 sets. cardio appreciated. #Afib with RVR with CHADSVASC 5, cardio on the case. On Eliquis (on Hold) due to having low platelets. #Acute CHF exacerbation on Lasix 20mg daily #anxiety: continue xanax .25 mg #nausea continue Zofran prn , QTC 449 Full code at this time.
[2018-05-13 22:49] LABS: CHOLESTEROL 137 mg/dL (50-200); HDL CHOLESTEROL 31 mg/dL (40-60); TRIGLYCERIDES 93 mg/dL (0-150)
[2018-05-14] MEDS: METOPROLOL TARTRATE 25 MG TABLET (FP) PO SCH ×3 (06:26→22:46)
[2018-05-14] MEDS: DOCUSATE SODIUM 100 MG CAPSULE (FP) PO SCH ×3 (06:26→22:46)
[2018-05-14 06:32] LABS: HEMATOCRIT 33.1 % (32.4-45.2); HEMOGLOBIN 11.2 GM/dL (10.7-15.3); MCHC 33.7 g/dl (32.0-36.0); MEAN CELL VOLUME 103.9 fl (80-96); MEAN PLT VOLUME 10.2 fl (7.5-11.1); PLATELET COUNT 39 K/MM3 (134-434); RBC 3.19 M/mm3 (3.60-5.2); RDW 17.7 % (11.6-15.6); WHITE BLOOD COUNT 4.5 K/mm3 (4.0-10.0)
--- NOTE | 2018-05-14 07:42 | PN ---
Progress Note (short form) - Note Progress Note: Patient seen and examined Discussed with pulmonary Reviewed CT scans Discussed with cardiology Remains short of breath and chest pressure on exertion Somewhat hypotensive Continues to be thrombocytopenic CT scan with interstitial disease and ?? infectious component superimposed Last Vital Signs Temp Pulse Resp BP Pulse Ox 98.3 F 105 H 20 103/53 L 97 05/14/18 06:00 05/14/18 06:00 05/14/18 06:00 05/14/18 06:00 05/13/18 21:00 HEENT: LAISHA, EOM Intact Oropharynx: No thrush, No mucositis Cor: irregular rhythm Lungs: coarse rales and rhonchi at lung bases Abd: Soft, Normal bowel sounds, No organomegaly Ext:No significant edema Skin: No rashes, Integument intact CBC, BMP 05/14/18 06:00 05/12/18 06:45 Current Medications Generic Name Dose Route Start Last Admin Trade Name Freq PRN Reason Stop Dose Admin Alprazolam 0.25 mg 05/08/18 10:00 05/13/18 21:11 Xanax - PO 0.25 mg BID JAKUB Administration Docusate Sodium 100 mg 05/10/18 22:00 05/14/18 06:26 Colace - PO 100 mg TID JAKUB Administration Furosemide 20 mg 05/08/18 10:00 05/13/18 12:13 Lasix - PO Not Given DAILY JAKUB IV Flush 10 ml 05/07/18 23:41 Noble-Cath Flush IVPUSH PRN PRN FLUSH Megestrol Acetate 400 mg 05/08/18 10:00 05/13/18 09:07 Megace Oral Suspension - PO 400 mg DAILY JAKUB Administration Metoprolol Tartrate 25 mg 05/11/18 12:15 05/14/18 06:26 Lopressor - PO 25 mg TID JAKUB Administration Ondansetron HCl 8 mg 05/07/18 23:41 Zofran Odt - SL Q8H PRN NAUSEA AND/OR VOMITING Pantoprazole Sodium 40 mg 05/09/18 10:00 05/13/18 09:06 Protonix - PO 40 mg DAILY JAKUB Administration Sucralfate 1 gm 05/09/18 10:00 05/13/18 21:11 Carafate Oral Suspension - PO 1 gm QID JAKUB Administration IMPRESSION : Atypical chest pain Interstitial lung disease Thrombocytopenia Anal ca - s/p RT and chemotherpay ?? pneumonia Suggest trial of prednisone -60 mg daily -check with pulmonary re: dosing for interstitial lung disease , but for trial of steroids for thrombocytopenia , prednisone 1 mg/kg is appropriate Suggest- ID consult Follow up pulmonary and cardiology.
[2018-05-14] MEDS ORDERED: PT OWN MED DRAWER 7, Y5N ONE (10:33)
[2018-05-14] MEDS: ALPRAZolam 0.25 MG TABLET PO SCH ×2 (10:40→22:46)
[2018-05-14] MEDS: FUROSEMIDE 20 MG TABLET (FP) PO SCH (10:40)
[2018-05-14] MEDS: PANTOPRAZOLE 40 MG TABLET (FP) PO SCH (10:40)
[2018-05-14] MEDS: SUCRALFATE 1 GM/10 ML UNIT DOSE CUPS PO SCH ×4 (10:40→22:46)
[2018-05-14] MEDS: MEGESTROL ACETATE 400 MG/10 ML UNIT DOSE CUP PO SCH (10:41)
--- NOTE | 2018-05-14 10:47 | PN ---
Progress Note, Physician History of Present Illness: Pt is an 82yo f with PMH of anal cancer, Afib (on Eliquis), CHF presenting to ED with complaints of chest pressure x3 months since January. Pt has had chemotherapy and RT for anal cancer and states she has been feeling a chest pressure since then. It is associated with SOB (pt is on oxygen at home, does not know how much). Pt says pressure is there when she wakes up and does not go away. She denies fever, chills, cough, n/v, headaches, neck pain, lightheadedness. Admits to loss of appetite and fatigue. - Current Medication List Current Medications: Active Medications Alprazolam (Xanax -) 0.25 mg PO BID [facility] Last Admin: 05/14/18 10:40 Dose: 0.25 mg Docusate Sodium (Colace -) 100 mg PO TID [facility] Last Admin: 05/14/18 06:26 Dose: 100 mg Furosemide (Lasix -) 20 mg PO DAILY [facility] Last Admin: 05/14/18 10:40 Dose: 20 mg IV Flush (Noble-Cath Flush) 10 ml IVPUSH PRN PRN PRN Reason: FLUSH Megestrol Acetate (Megace Oral Suspension -) 400 mg PO DAILY [facility] Last Admin: 05/14/18 10:41 Dose: 400 mg Metoprolol Tartrate (Lopressor -) 25 mg PO TID [facility] Last Admin: 05/14/18 06:26 Dose: 25 mg Ondansetron HCl (Zofran Odt -) 8 mg SL Q8H PRN PRN Reason: NAUSEA AND/OR VOMITING Pantoprazole Sodium (Protonix -) 40 mg PO DAILY [facility] Last Admin: 05/14/18 10:40 Dose: 40 mg Sucralfate (Carafate Oral Suspension -) 1 gm PO QID [facility] Last Admin: 05/14/18 10:40 Dose: 1 gm - Objective Vital Signs: Vital Signs Temperature 98.3 F 05/14/18 06:00 Pulse Rate 105 H 05/14/18 06:00 Respiratory Rate 20 05/14/18 06:00 Blood Pressure 103/53 L 05/14/18 06:00 O2 Sat by Pulse Oximetry (%) 97 05/13/18 21:00 Cardiovascular: Yes: Pulse Irregular, S1, S2 Labs: CBC, BMP 05/14/18 06:00 05/12/18 06:45 INR, PTT INR 1.42 (0.83-1.09) H 05/07/18 14:55 Assessment/Plan - Problems (1) Anxiety and depression Assessment/Plan: Pt insists she does not want to go to a fdc, having recently spent several weeks in one for rehabilitation, and hearing stories of poor treatment in other facilities. Code(s): F41.9 - ANXIETY DISORDER, UNSPECIFIED; F32.9 - MAJOR DEPRESSIVE DISORDER, SINGLE EPISODE, UNSPECIFIED (2) Thrombocytopenia Assessment/Plan: Platelets remains profoundly low. F/u with heme-onc. NOAC (being given for AF) held. As discussed with Dr. Oneil, steroids (being considered for use with pt's pulmonary disease) may increase platelets. Code(s): D69.6 - THROMBOCYTOPENIA, UNSPECIFIED (3) Anal cancer Code(s): C21.0 - MALIGNANT NEOPLASM OF ANUS, UNSPECIFIED (4) Atrial fibrillation Assessment/Plan: On metoprolol tid for HR control. TSH WNL; afebrile. NOAC held due to low platelets. Code(s): I48.91 - UNSPECIFIED ATRIAL FIBRILLATION Qualifiers: Atrial fibrillation type: unspecified Qualified Code(s): I48.91 - Unspecified atrial fibrillation (5) Diastolic CHF Assessment/Plan: On metoprolol and furosemide; both were held earlier today due to hypotension. Consider changing furosemide 20 mg daily to IVP. F/u BUn/Cr, electrolytes, daily weight (assuming initial weight listed, 150 lbs , was an error, pt has gained a few lbs since admission), Is and Os. Pt's multiple comorbidities (including CA, AF, CHF, thrombocytopenia, and IS lung disease) with weakness, periods of hypotension and tachycardia, make evaluation to r/o CAD problematic. Consider next chest CTA with attention to coronary arteries. F/u lipid panel. Code(s): I50.30 - UNSPECIFIED DIASTOLIC (CONGESTIVE) HEART FAILURE (6) Vomiting Code(s): R11.10 - VOMITING, UNSPECIFIED Qualifiers: Vomiting type: unspecified Vomiting Intractability: intractable Nausea presence: with nausea Qualified Code(s): R11.2 - Nausea with vomiting, unspecified (7) Weakness Assessment/Plan: Encourage increased PO intake. Nutritional f/u. Code(s): R53.1 - WEAKNESS (8) Interstitial lung disease Assessment/Plan: CTA noted possible increase in IS thickening since 10/16 study. Code(s): J84.9 - INTERSTITIAL PULMONARY DISEASE, UNSPECIFIED
--- NOTE | 2018-05-14 12:57 | PN ---
Progress Note (short form) - Note Progress Note: PULMONARY CONSULTATION DICTATED 05/13/18 IMP ACUTE ON CHRONIC HYPOXEMIC RESPIRATORY FAILURE ILD ? ETIOLOGY DIASTOLIC HF CP ? CARDIAC AFIB THROMBOCYTOPENIA HYPOTENSION ANAL CA S/P RT/CHEMO ANXIETY PLAN MONITOR BP O2 LASIX TOLERATED MONITOR LYTES F/U CHEST X-RAY PFTS OUTPATIENT RATE CONTROL PER CARDIOLOGY MONITOR CBC,PLT CT SHORT COURSE OF MEDROL DR RODGERS Problem List - Problems (1) Acute on chronic respiratory failure with hypoxemia Code(s): J96.21 - ACUTE AND CHRONIC RESPIRATORY FAILURE WITH HYPOXIA (2) Anxiety and depression Code(s): F41.9 - ANXIETY DISORDER, UNSPECIFIED; F32.9 - MAJOR DEPRESSIVE DISORDER, SINGLE EPISODE, UNSPECIFIED (3) Chest tightness Code(s): R07.89 - OTHER CHEST PAIN (4) Thrombocytopenia Code(s): D69.6 - THROMBOCYTOPENIA, UNSPECIFIED (5) Anal cancer Code(s): C21.0 - MALIGNANT NEOPLASM OF ANUS, UNSPECIFIED (6) Atrial fibrillation Code(s): I48.91 - UNSPECIFIED ATRIAL FIBRILLATION Qualifiers: Atrial fibrillation type: unspecified Qualified Code(s): I48.91 - Unspecified atrial fibrillation (7) CHF (congestive heart failure) Code(s): I50.9 - HEART FAILURE, UNSPECIFIED (8) Diastolic CHF Code(s): I50.30 - UNSPECIFIED DIASTOLIC (CONGESTIVE) HEART FAILURE (9) Interstitial lung disease Code(s): J84.9 - INTERSTITIAL PULMONARY DISEASE, UNSPECIFIED
--- NOTE | 2018-05-14 13:01 | PN ---
Progress Note, Physician History of Present Illness: PULMONARY ALERT,OOB-CHAIR,-RESP DISTRESS,-CP AT REST - Current Medication List Current Medications: Active Medications Alprazolam (Xanax -) 0.25 mg PO BID [facility] Last Admin: 05/14/18 10:40 Dose: 0.25 mg Docusate Sodium (Colace -) 100 mg PO TID [facility] Last Admin: 05/14/18 06:26 Dose: 100 mg Furosemide (Lasix -) 20 mg PO DAILY [facility] Last Admin: 05/14/18 10:40 Dose: 20 mg IV Flush (Noble-Cath Flush) 10 ml IVPUSH PRN PRN PRN Reason: FLUSH Megestrol Acetate (Megace Oral Suspension -) 400 mg PO DAILY [facility] Last Admin: 05/14/18 10:41 Dose: 400 mg Metoprolol Tartrate (Lopressor -) 25 mg PO TID [facility] Last Admin: 05/14/18 06:26 Dose: 25 mg Ondansetron HCl (Zofran Odt -) 8 mg SL Q8H PRN PRN Reason: NAUSEA AND/OR VOMITING Pantoprazole Sodium (Protonix -) 40 mg PO DAILY [facility] Last Admin: 05/14/18 10:40 Dose: 40 mg Sucralfate (Carafate Oral Suspension -) 1 gm PO QID [facility] Last Admin: 05/14/18 10:40 Dose: 1 gm - Objective Vital Signs: Vital Signs Temperature 97.8 F 05/14/18 10:00 Pulse Rate 96 H 05/14/18 10:00 Respiratory Rate 20 05/14/18 10:00 Blood Pressure 99/59 L 05/14/18 10:00 O2 Sat by Pulse Oximetry (%) 96 05/14/18 10:00 Constitutional: Yes: Calm, Thin Eyes: Yes: WNL HENT: Yes: WNL Neck: Yes: WNL Cardiovascular: Yes: Pulse Irregular, S1, S2 Respiratory: Yes: Rales (BILATERAL CRACKLES) Gastrointestinal: Yes: Normal Bowel Sounds, Soft Extremities: Yes: WNL Edema: No Labs: CBC, BMP 05/14/18 06:00 05/12/18 06:45 INR, PTT INR 1.42 (0.83-1.09) H 05/07/18 14:55 Problem List - Problems (1) Acute on chronic respiratory failure with hypoxemia Code(s): J96.21 - ACUTE AND CHRONIC RESPIRATORY FAILURE WITH HYPOXIA (2) Anxiety and depression Code(s): F41.9 - ANXIETY DISORDER, UNSPECIFIED; F32.9 - MAJOR DEPRESSIVE DISORDER, SINGLE EPISODE, UNSPECIFIED (3) Chest tightness Code(s): R07.89 - OTHER CHEST PAIN (4) Thrombocytopenia Code(s): D69.6 - THROMBOCYTOPENIA, UNSPECIFIED (5) Anal cancer Code(s): C21.0 - MALIGNANT NEOPLASM OF ANUS, UNSPECIFIED (6) Atrial fibrillation Code(s): I48.91 - UNSPECIFIED ATRIAL FIBRILLATION Qualifiers: Atrial fibrillation type: unspecified Qualified Code(s): I48.91 - Unspecified atrial fibrillation (7) CHF (congestive heart failure) Code(s): I50.9 - HEART FAILURE, UNSPECIFIED (8) Diastolic CHF Code(s): I50.30 - UNSPECIFIED DIASTOLIC (CONGESTIVE) HEART FAILURE (9) Interstitial lung disease Code(s): J84.9 - INTERSTITIAL PULMONARY DISEASE, UNSPECIFIED Assessment/Plan IMP ACUTE ON CHRONIC HYPOXEMIC RESPIRATORY FAILURE ILD ? ETIOLOGY DIASTOLIC HF CP ? CARDIAC AFIB THROMBOCYTOPENIA HYPOTENSION ANAL CA S/P RT/CHEMO ANXIETY PLAN MONITOR BP O2 IV LASIX TOLERATED MONITOR LYTES F/U CHEST X-RAY PFTS OUTPATIENT RATE CONTROL PER CARDIOLOGY MONITOR CBC,PLT CT JACINDA RODGERS Problem List - Problems (1) Acute on chronic respiratory failure with hypoxemia Code(s): J96.21 - ACUTE AND CHRONIC RESPIRATORY FAILURE WITH HYPOXIA (2) Anxiety and depression Code(s): F41.9 - ANXIETY DISORDER, UNSPECIFIED; F32.9 - MAJOR DEPRESSIVE DISORDER, SINGLE EPISODE, UNSPECIFIED (3) Chest tightness Code(s): R07.89 - OTHER CHEST PAIN (4) Thrombocytopenia Code(s): D69.6 - THROMBOCYTOPENIA, UNSPECIFIED (5) Anal cancer Code(s): C21.0 - MALIGNANT NEOPLASM OF ANUS, UNSPECIFIED (6) Atrial fibrillation Code(s): I48.91 - UNSPECIFIED ATRIAL FIBRILLATION Qualifiers: Atrial fibrillation type: unspecified Qualified Code(s): I48.91 - Unspecified atrial fibrillation (7) CHF (congestive heart failure) Code(s): I50.9 - HEART FAILURE, UNSPECIFIED (8) Diastolic CHF Code(s): I50.30 - UNSPECIFIED DIASTOLIC (CONGESTIVE) HEART FAILURE (9) Interstitial lung disease Code(s): J84.9 - INTERSTITIAL PULMONARY DISEASE, UNSPECIFIED
[2018-05-14] MEDS: methylPREDNISolone NA SUCC 40 MG/1 ML VIAL IVPUSH SCH ×2 (14:26→22:45)
--- NOTE | 2018-05-14 15:54 | PN ---
Physical Exam: SUBJECTIVE: Patient seen and examined this morning. Able to ambulate in her room and the hallway. Denies any Chest pain, palpitations, SOB or dizziness. No new complaints otherwise. OBJECTIVE: Vital Signs Period Temp Pulse Resp BP Sys/Rao Pulse Ox Last 24 Hr 97.2 F-98.3 F 96-113 16-20 87-108/53-74 96-97 GENERAL: A&Ox3 HEAD: NCAT EYES: PERRL, EOMI ENT: Oropharynx clear without exudates, moist mucous membranes. NECK: No JVD LUNGS: Wheezing improved HEART: Irregularly, Irregular, No murmur ABDOMEN: Soft, nontender, nondistended, + bowel sounds EXTREMITIES: 2+ pulses, no edema. NEUROLOGICAL: Cranial nerves II through XII grossly intact. Normal speech. Laboratory Results - last 24 hr 05/12/18 05/14/18 06:45 06:00 WBC 4.5 RBC 3.19 L Hgb 11.2 Hct 33.1 MCV 103.9 H MCH 35.0 H MCHC 33.7 RDW 17.7 H Plt Count 39 L D MPV 10.2 Triglycerides 93 Cholesterol 137 Total LDL Cholesterol 97 HDL Cholesterol 31 L Microbiology 05/08/18 22:15 Blood - Peripheral Venous Blood Culture - Final NO GROWTH AFTER 5 DAYS INCUBATION 05/08/18 22:10 Blood - Peripheral Venous Blood Culture - Final NO GROWTH AFTER 5 DAYS INCUBATION 05/09/18 09:15 Urine - Urine Clean Catch Urine Culture - Final NO GROWTH OBTAINED Active Medications Alprazolam (Xanax -) 0.25 mg PO BID [facility] Last Admin: 05/14/18 10:40 Dose: 0.25 mg Docusate Sodium (Colace -) 100 mg PO TID [facility] Last Admin: 05/14/18 14:26 Dose: 100 mg Furosemide (Lasix -) 20 mg PO DAILY [facility] Last Admin: 05/14/18 10:40 Dose: 20 mg IV Flush (Noble-Cath Flush) 10 ml IVPUSH PRN PRN PRN Reason: FLUSH Megestrol Acetate (Megace Oral Suspension -) 400 mg PO DAILY [facility] Last Admin: 05/14/18 10:41 Dose: 400 mg Methylprednisolone Sodium Succinate (Solu-Medrol -) 40 mg IVPUSH BID [facility] Last Admin: 05/14/18 14:26 Dose: 40 mg Metoprolol Tartrate (Lopressor -) 25 mg PO TID [facility] Last Admin: 05/14/18 14:26 Dose: 25 mg Ondansetron HCl (Zofran Odt -) 8 mg SL Q8H PRN PRN Reason: NAUSEA AND/OR VOMITING Pantoprazole Sodium (Protonix -) 40 mg PO DAILY [facility] Last Admin: 05/14/18 10:40 Dose: 40 mg Sucralfate (Carafate Oral Suspension -) 1 gm PO QID [facility] Last Admin: 05/14/18 14:26 Dose: 1 gm IMAGING: -EKG: ATRIAL FIBRILLATION WITH RAPID VENTRICULAR RESPONSE, NONSPECIFIC T WAVE ABNORMALITY, VR 108, QTc 423 -CXR: Since 02/24/2018, the chronic interstitial and nodular changes with some alveolar components, prominent mediastinum and right port persist. -CTA: No definite CT evidence of pulmonary embolism. As on a prior CT exam of there is prominent bilateral interstitial thickening within the upper and lower lung walsh consistent with chronic interstitial lung disease. Possible mildly increased interstitial thickening is seen bilaterally since the prior exam which could be on the basis of additional chronic interstitial changes versus representing superimposed interstitial pneumonitis or interstitial vascular congestion. Clinical/laboratory correlation is suggested. Cardiomegaly is noted as on the prior study. Stable mild mediastinal and bilateral hilar lymphadenopathy is seen which is probably hyperplastic in nature. There has been interval insertion of a right internal jugular venous catheter with the catheter tip at the level of the superior cavoatrial junction. Stable 2.4 cm right adrenal adenoma -ECHO: LV Size, thickness, function are normal. LA moderately dilated, RA mildly dilated. Moderate MR and TR, Mild AR. ASSESSMENT/PLAN: 82 y/o female with PMHx of anal cancer (S/P Chemo and Radiation), Afib (on eliquis), CHF, and anxiety presents to the ED from Dr. Oneil's office for tachycardia and SOB. #Thrombocytopenia -S/P chemo with hx of thrombocytopenia requiring transfusion in the past -S/P 2 units of platelets given this visit -Continue to Hold Elliquis -Hematology (Dr. Oneil) consulted, Appreciate Rec's -Will Transfuse if bleeding or platelets less than 15k #Tachycardia -Likely due to AFib with RVR (CHADSVASC 5) -Rate still above goal -EKG, Echo noted Noted above -Metoprolol dose changed to Q8H -Elliquis held in the setting of Thrombocytopenia -Cardiology (Dr. Johnston) consulted, Appreciate Rec's #Hypokalemia -Repleted -Will keep K+ at 4-4.5 #SOB -Likely to due Acute CHF Exacerbation 2/2 Afib; Still consider Interstitial Lung disease -BNP: 2876 -ECHO, CXR, CTA Noted above -Continue Lasix -Strict I&Os, Daily weights -Continue Supplemental O2 HS -Pulmonology (Dr. Angel) Consulted, Appreciate Rec's -PO Prednisone 60mg changed to IV Medrol 40mg -ID (Dr. Vickers) consulted for possible infiltrate on imaging -Will repeat CXR in 48 hours to reevaluate; Continue to hold antibiotics for now #Chest Pressure -R/O ACS -Troponin <0.02 X2, EKG Noted above #Hx of Anxiety -Continue home dose Xanax #Nausea -Continue Zofran #FEN -PO Fluids -Will keep K+ 4-4.5, Mg 2-2.4, Phos 2.5-4.9 -Regular Diet #PPx -DVT: Early Ambulation; Elliquis held in the setting of Thrombocytopenia Full code Visit type - Emergency Visit Emergency Visit: Yes ED Registration Date: 05/07/18 Care time: The patient presented to the Emergency Department on the above date and was hospitalized for further evaluation of their emergent condition. - New Patient This patient is new to me today: No - Critical Care Critical Care patient: No - Discharge Referral Referred to [facility] Med P.C.: No
--- NOTE | 2018-05-14 16:02 | CON.ID ---
Consult Consult Specialty:: infectious disease Referred by:: hospitalist Reason for Consultation:: abnormal chest ct/cxray - History of Present Illness Chief Complaint: weakness, chest pressure History of Present Illness: 82 yo female s/p chemo/RT for anal cancer, she was admitted 05/07 with weakness and rapid afib. NOted to be thrombocytopenic as well she was recently at [facility] in March and recalls being treated for pneumonia denies cough denies fevers notes midepigasric chest pressure that lasts all day and only resolves when she lays down to sleep no vomiting poor appetite no history of travel lives in [facility] [place] 21 no history of TB cxray and chest ct scans reviewed with radiologist increased markings at the bases Right greater then left - History Source History Provided By: Patient, Medical Record Limitations to Obtaining History: No Limitations - Past Medical History Cardio/Vascular: Yes: HTN Gastrointestinal: Yes: Diverticulosis, GI Bleed Renal/: Yes: Hematuria Heme/Onc: Yes: Cancer (anal s/p chemo and RT) Psych: Yes: Anxiety Rheumatology: Yes: Fibromyalgia - Past Surgical History Past Surgical History: Yes: Hysterectomy, Joint Replacement (right knee) - Alcohol/Substance Use Hx Alcohol Use: No History of Substance Use: reports: None - Smoking History Smoking history: Never smoked Have you smoked in the past 12 months: No - Social History Usual Living Arrangement: Alone ADL: Independent 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 Place of : Other ([place]) History of Recent Travel: No Home Medications - Allergies Allergies/Adverse Reactions: Allergies Allergy/AdvReac Type Severity Reaction Status Date / Time Sulfa (Sulfonamide Allergy Verified 05/07/18 19:42 Antibiotics) - Home Medications Home Medications: Ambulatory Orders Alprazolam [Xanax] 0.25 mg PO TID PRN MDD 0.75 10/18/17 Ondansetron [Zofran *Odt*] 8 mg PO Q8H PRN 12/31/17 Megestrol Acetate Oral Susp [Megace Oral Suspension -] 400 mg PO DAILY 30 Days # 1 cup 01/05/18 Apixaban [Eliquis -] 2.5 mg PO BID #60 tablet 02/22/18 Furosemide [Lasix -] 20 mg PO DAILY #7 tablet 02/22/18 Albuterol 0.083% Nebulizer Ela [Ventolin 0.083% Nebulizer Soln -] 1 vial NEB Q6H 05/08/18 Megestrol Acetate 1 tab PO DAILY 05/08/18 Pantoprazole Sodium 1 tab PO DAILY 05/08/18 Sucralfate [Carafate] 10 ml PO QID 05/08/18 Docusate Sodium [Colace -] 100 mg PO TID #90 capsule 05/13/18 Metoprolol Tartrate [Lopressor -] 25 mg PO TID #75 tablet 05/13/18 Family Disease History - Family Disease History Family Disease History: CA: Father (leukemia), Sister (breast cancer), Other: Mother (alzheimer) Review of Systems - Review of Systems Constitutional: reports: Unintentional Wgt. Loss. denies: Chills, Fever, Night Sweats Eyes: reports: No Symptoms HENT: reports: No Symptoms. denies: Difficult Swallowing Neck: reports: No Symptoms Cardiovascular: reports: Chest Pain Respiratory: denies: Cough Gastrointestinal: reports: No Symptoms. denies: Abdominal Pain Physical Exam Vital Signs: Vital Signs Temperature 97.2 F L 05/14/18 14:00 Pulse Rate 106 H 05/14/18 14:00 Respiratory Rate 18 05/14/18 14:00 Blood Pressure 97/62 05/14/18 14:00 O2 Sat by Pulse Oximetry (%) 96 05/14/18 10:00 Constitutional: Yes: Thin Eyes: Yes: Conjunctiva Clear, EOM Intact HENT: Yes: Atraumatic, Normocephalic. No: Pharyngeal Erythema, Thrush, Tonsillar Exudate Neck: Yes: Trachea Midline Cardiovascular: Yes: Regular Rate and Rhythm, Tachycardia Respiratory: Yes: Diminished, Other (crackles at bases right greater then left) Gastrointestinal: Yes: Normal Bowel Sounds, Soft ...Rectal Exam: Yes: Deferred Edema: LLE: Trace, RLE: Trace Integumentary: No: Rash Neurological: Yes: Alert, Oriented Labs: CBC, BMP 05/14/18 06:00 05/12/18 06:45 Microbiology 05/08/18 22:15 Blood - Peripheral Venous Blood Culture - Final NO GROWTH AFTER 5 DAYS INCUBATION 05/08/18 22:10 Blood - Peripheral Venous Blood Culture - Final NO GROWTH AFTER 5 DAYS INCUBATION 05/09/18 09:15 Urine - Urine Clean Catch Urine Culture - Final NO GROWTH OBTAINED Imaging - Results Chest X-ray: Report Reviewed, Image Reviewed Cat Scan: Report Reviewed, Image Reviewed Problem List - Problems (1) Abnormal x-ray Code(s): R93.89 - ABNORMAL FINDINGS ON DX IMAGING OF OTH BODY STRUCTURES (2) Interstitial lung disease Code(s): J84.9 - INTERSTITIAL PULMONARY DISEASE, UNSPECIFIED (3) CHF (congestive heart failure) Code(s): I50.9 - HEART FAILURE, UNSPECIFIED (4) Atrial fibrillation Code(s): I48.91 - UNSPECIFIED ATRIAL FIBRILLATION Qualifiers: Atrial fibrillation type: unspecified Qualified Code(s): I48.91 - Unspecified atrial fibrillation (5) Thrombocytopenia Code(s): D69.6 - THROMBOCYTOPENIA, UNSPECIFIED (6) Anal cancer Code(s): C21.0 - MALIGNANT NEOPLASM OF ANUS, UNSPECIFIED Assessment/Plan cllinically not c/w acute bacterial pneumonia now on steroids for ILD history of heart failure as well suggest repeat cxray in 48 hours and re-evaluate hold antibiotics for now
[2018-05-14 16:05] VITALS: BMI 22.1
--- NOTE | 2018-05-14 18:30 | PN ---
Teaching Attending Note Name of Resident: Wendy Perry ATTENDING PHYSICIAN STATEMENT I saw and evaluated the patient. I reviewed the resident's note and discussed the case with the resident. I agree with the resident's findings and plan as documented. SUBJECTIVE: No fever ,. SOB is at base line . no CP . OBJECTIVE: NAD CV: RRR Lungs: minimal wheezing bilaterally Ext: trace edema . no erythema A/P : 82 y/o lady with h/o anal cancer ( chem/RTx), HTN, A fib , and Anxiety who was sent from Heme office due to thrombocytopenia . she was diagnosed with ILD 1- Thrombocytopenia 2- ILD 3- acute diastolic heart failure , improved . 4- h/o A fib plan: - looks euvolemic . cont PO lasix - appreciate pulm Recs. steroids started - monitor platelet . transfuse as needed - no clinical signs of PNA. agree with holding Abx - check mycoplasma igM Abs - hold eliquis for a fib
[2018-05-15] MEDS: METOPROLOL TARTRATE 25 MG TABLET (FP) PO SCH ×3 (05:29→21:47)
[2018-05-15] MEDS: DOCUSATE SODIUM 100 MG CAPSULE (FP) PO SCH ×3 (05:30→21:47)
[2018-05-15 07:07] LABS: BASO % 0.3 % (0-2.0); EOS % 0.2 % (0-4.5); HEMATOCRIT 31.2 % (32.4-45.2); HEMOGLOBIN 10.3 GM/dL (10.7-15.3); LYMPH % 10.6 % (8-40); MCH 34.4 pg (25.7-33.7); MCHC 32.9 g/dl (32.0-36.0); MEAN CELL VOLUME 104.5 fl (80-96); MEAN PLT VOLUME 10.8 fl (7.5-11.1); MONO % 12.3 % (3.8-10.2); NEUT % 76.6 % (42.8-82.8); PLATELET COUNT 46 K/MM3 (134-434); RBC 2.99 M/mm3 (3.60-5.2); RDW 17.5 % (11.6-15.6); WHITE BLOOD COUNT 4.9 K/mm3 (4.0-10.0)
[2018-05-15] MEDS: ALPRAZolam 0.25 MG TABLET PO SCH ×2 (10:45→21:47)
[2018-05-15] MEDS: PANTOPRAZOLE 40 MG TABLET (FP) PO SCH (10:45)
[2018-05-15] MEDS: SUCRALFATE 1 GM/10 ML UNIT DOSE CUPS PO SCH ×4 (10:45→21:47)
[2018-05-15] MEDS: methylPREDNISolone NA SUCC 40 MG/1 ML VIAL IVPUSH SCH (10:45)
[2018-05-15] MEDS: FUROSEMIDE 20 MG TABLET (FP) PO SCH (10:45)
[2018-05-15] MEDS: MEGESTROL ACETATE 400 MG/10 ML UNIT DOSE CUP PO SCH (10:46)
--- NOTE | 2018-05-15 11:52 | PN ---
Progress Note (short form) - Note Progress Note: Heme/Onc Patient seen and examined at bedside feels well no complaints denies bleeding Seen by pulmonology - patient in good spirits since being seen by Dr. Angel Platelets 46K Patient wwants to walk without a walker took patient on a walk and was able to walk without any issues up and down the hallway >200feet total Vital Signs Temperature 98.5 F 05/15/18 06:00 Pulse Rate 100 H 05/15/18 06:00 Respiratory Rate 20 05/15/18 06:00 Blood Pressure 108/58 L 05/15/18 06:00 O2 Sat by Pulse Oximetry (%) 96 05/14/18 21:00 PE: Constitutional: Yes: No Distress, Calm, Thin Eyes: Yes: Conjunctiva Clear, EOM Intact HENT: Yes: Atraumatic, Normocephalic Neck: Yes: Supple, Trachea Midline Cardiovascular: Yes: Pulse Irregular. No: Murmur Respiratory: Yes: Regular, crackles (bilaterally) but improved from yesterday Gastrointestinal: Yes: Normal Bowel Sounds, Soft. No: Tenderness Edema: Yes (trace nonpitting) Edema: LLE: Trace, RLE: Trace Psychiatric: Yes: Alert, Oriented 05/15/18 06:00 WBC 4.9 RBC 2.99 L Hgb 10.3 L Hct 31.2 L MCV 104.5 H MCHC 32.9 RDW 17.5 H Plt Count 46 L Neutrophils % 76.6 Lymphocytes % 10.6 D Monocytes % 12.3 H Eosinophils % 0.2 D Basophils % 0.3 05/14/18 22:00 Mycoplasma Antibody - Pending Serum 05/08/18 22:15 Blood Culture - Final Blood - Peripheral Venous NO GROWTH AFTER 5 DAYS INCUBATION 05/08/18 22:10 Blood Culture - Final Blood - Peripheral Venous NO GROWTH AFTER 5 DAYS INCUBATION 05/09/18 09:15 Urine Culture - Final Urine - Urine Clean Catch NO GROWTH OBTAINED 82F with multiple medical problems presents to the ER at the direction of her oncologist due to tachycardia found to be in A fib with RVR. Hematology/ oncology consulted for history of cancer and being thrombocytopenic in the setting of anticoagulation. Problem List: Anal cancer s/p chemo radiation A fib with RVR on eliquis Thrombocytopenia in the setting of anticoagulation CHF exacerbation shortness of breath chronic interstitial lung disease on home o2 PRN Plan: continue to trend CBC for platelet count Transfuse platelets PRN if platelet count drops below 10K or if patient has episodes of bleeding or febrile continue to hold eliquis in the setting of thrombocytopenia no evidence of bleeding cardiology evaluation appreciated rest of management per primary medical team appreciate this consultative opportunity appreciate hospitalist team taking care of Dr. Oneil's patient Steroids probably helping platelet counts recover repeat CXR Possible ABx but holding off per ID for now will follow
--- NOTE | 2018-05-15 12:33 | PN ---
Teaching Attending Note Name of Resident: Wendy Perry ATTENDING PHYSICIAN STATEMENT I saw and evaluated the patient. I reviewed the resident's note and discussed the case with the resident. I agree with the resident's findings and plan as documented. SUBJECTIVE: No fever or chills. No abd pain, NO CP, no SOB at rest but feels SOB with ambulation . no cough OBJECTIVE: NAD CV: irreg irreg Lungs: minimal wheezing bilaterally , minimal fine crackles in R middle lung field Ext: trace edema . no erythema A/P : 82 y/o lady with h/o anal cancer ( chem/RTx), HTN, A fib , and Anxiety who was sent from Heme office due to thrombocytopenia . she was diagnosed with ILD 1- Thrombocytopenia 2- ILD 3- Acute diastolic heart failure , improved . 4- h/o A fib plan: - cont to monitor volume status - cont polasix - cont steroids - plt count improved , monitor for steady increase - No clinical signs of PNA . - repeat Cxray tomorrow afternoon - cont to hold eliquis - Mycoplasma IgM Abs pending Dispo : depends on plt count , hopefully if she shows steady increase in her numbers
--- NOTE | 2018-05-15 12:34 | PN ---
Progress Note (short form) - Note Progress Note: Breathing feels better but not at baseline. Walked to the atrium without O2. Intake & Output 05/12/18 05/13/18 05/14/18 05/15/18 23:59 23:59 23:59 23:59 Intake Total 310 1190 830 490 Balance 310 1190 830 490 Weight 131 lb 6.4 oz 131 lb 8 oz 133 lb 133 lb 12.8 oz Last Vital Signs Temp Pulse Resp BP Pulse Ox 98.5 F 100 H 20 108/58 L 96 05/15/18 06:00 05/15/18 06:00 05/15/18 06:00 05/15/18 06:00 05/14/18 21:00 Active Medications Alprazolam (Xanax -) 0.25 mg PO BID [facility] Last Admin: 05/15/18 10:45 Dose: 0.25 mg Docusate Sodium (Colace -) 100 mg PO TID [facility] Last Admin: 05/15/18 05:30 Dose: 100 mg Furosemide (Lasix -) 20 mg PO DAILY [facility] Last Admin: 05/15/18 10:45 Dose: 20 mg IV Flush (Noble-Cath Flush) 10 ml IVPUSH PRN PRN PRN Reason: FLUSH Megestrol Acetate (Megace Oral Suspension -) 400 mg PO DAILY [facility] Last Admin: 05/15/18 10:46 Dose: 400 mg Methylprednisolone Sodium Succinate (Solu-Medrol -) 40 mg IVPUSH BID [facility] Last Admin: 05/15/18 10:45 Dose: 40 mg Metoprolol Tartrate (Lopressor -) 25 mg PO TID [facility] Last Admin: 05/15/18 05:29 Dose: 25 mg Ondansetron HCl (Zofran Odt -) 8 mg SL Q8H PRN PRN Reason: NAUSEA AND/OR VOMITING Pantoprazole Sodium (Protonix -) 40 mg PO DAILY [facility] Last Admin: 05/15/18 10:45 Dose: 40 mg Sucralfate (Carafate Oral Suspension -) 1 gm PO QID [facility] Last Admin: 05/15/18 10:45 Dose: 1 gm Constitutional: Yes: Calm, Thin Eyes: Yes: WNL HENT: Yes: WNL Neck: Yes: WNL Cardiovascular: Yes: Pulse Irregular, S1, S2 Respiratory: Yes: Few scattered rhonchi, no wheeze Gastrointestinal: Yes: Normal Bowel Sounds, Soft Extremities: Yes: WNL Edema: No Labs: Laboratory Results - last 24 hr 05/15/18 06:00 WBC 4.9 RBC 2.99 L Hgb 10.3 L Hct 31.2 L MCV 104.5 H MCH 34.4 H MCHC 32.9 RDW 17.5 H Plt Count 46 L MPV 10.8 Absolute Neuts (auto) 3.8 Neutrophils % 76.6 Lymphocytes % 10.6 D Monocytes % 12.3 H Eosinophils % 0.2 D Basophils % 0.3 Nucleated RBC % 0 Problem List - Problems (1) Acute on chronic respiratory failure with hypoxemia Code(s): J96.21 - ACUTE AND CHRONIC RESPIRATORY FAILURE WITH HYPOXIA (2) Anxiety and depression Code(s): F41.9 - ANXIETY DISORDER, UNSPECIFIED; F32.9 - MAJOR DEPRESSIVE DISORDER, SINGLE EPISODE, UNSPECIFIED (3) Chest tightness Code(s): R07.89 - OTHER CHEST PAIN (4) Thrombocytopenia Code(s): D69.6 - THROMBOCYTOPENIA, UNSPECIFIED (5) Anal cancer Code(s): C21.0 - MALIGNANT NEOPLASM OF ANUS, UNSPECIFIED (6) Atrial fibrillation Code(s): I48.91 - UNSPECIFIED ATRIAL FIBRILLATION Qualifiers: Atrial fibrillation type: unspecified Qualified Code(s): I48.91 - Unspecified atrial fibrillation (7) CHF (congestive heart failure) Code(s): I50.9 - HEART FAILURE, UNSPECIFIED (8) Diastolic CHF Code(s): I50.30 - UNSPECIFIED DIASTOLIC (CONGESTIVE) HEART FAILURE (9) Interstitial lung disease Code(s): J84.9 - INTERSTITIAL PULMONARY DISEASE, UNSPECIFIED Assessment/Plan IMP ACUTE ON CHRONIC HYPOXEMIC RESPIRATORY FAILURE ILD ? ETIOLOGY DIASTOLIC HF CP ? CARDIAC AFIB THROMBOCYTOPENIA HYPOTENSION ANAL CA S/P RT/CHEMO ANXIETY PLAN O2 IV LASIX TOLERATED MONITOR LYTES PFTS OUTPATIENT RATE CONTROL PER CARDIOLOGY CHANGE TO PREDNISONE Dr Chan
--- NOTE | 2018-05-15 12:45 | PN ---
Physical Exam: SUBJECTIVE: Patient seen and examined this morning. Feels some SOB with ambulation. Denies any Chest pain, palpitations, SOB or dizziness. No new complaints otherwise. OBJECTIVE: Vital Signs Period Temp Pulse Resp BP Sys/Rao Pulse Ox Last 24 Hr 97.2 F-98.5 F 100-114 18-20 97-120/58-71 96 GENERAL: A&Ox3 HEAD: NCAT EYES: PERRL, EOMI ENT: Oropharynx clear without exudates, moist mucous membranes. NECK: No JVD LUNGS: Minimal Wheezing HEART: Irregularly, Irregular, No murmur ABDOMEN: Soft, nontender, nondistended, + bowel sounds EXTREMITIES: 2+ pulses, no edema. NEUROLOGICAL: Cranial nerves II through XII grossly intact. Normal speech. Laboratory Results - last 24 hr 05/15/18 06:00 WBC 4.9 RBC 2.99 L Hgb 10.3 L Hct 31.2 L MCV 104.5 H MCH 34.4 H MCHC 32.9 RDW 17.5 H Plt Count 46 L MPV 10.8 Absolute Neuts (auto) 3.8 Neutrophils % 76.6 Lymphocytes % 10.6 D Monocytes % 12.3 H Eosinophils % 0.2 D Basophils % 0.3 Nucleated RBC % 0 Microbiology 05/08/18 22:15 Blood - Peripheral Venous Blood Culture - Final NO GROWTH AFTER 5 DAYS INCUBATION 05/08/18 22:10 Blood - Peripheral Venous Blood Culture - Final NO GROWTH AFTER 5 DAYS INCUBATION 05/09/18 09:15 Urine - Urine Clean Catch Urine Culture - Final NO GROWTH OBTAINED Active Medications Alprazolam (Xanax -) 0.25 mg PO BID [facility] Last Admin: 05/15/18 10:45 Dose: 0.25 mg Docusate Sodium (Colace -) 100 mg PO TID [facility] Last Admin: 05/15/18 05:30 Dose: 100 mg Furosemide (Lasix -) 20 mg PO DAILY [facility] Last Admin: 05/15/18 10:45 Dose: 20 mg IV Flush (Noble-Cath Flush) 10 ml IVPUSH PRN PRN PRN Reason: FLUSH Megestrol Acetate (Megace Oral Suspension -) 400 mg PO DAILY [facility] Last Admin: 05/15/18 10:46 Dose: 400 mg Methylprednisolone Sodium Succinate (Solu-Medrol -) 40 mg IVPUSH BID [facility] Last Admin: 05/15/18 10:45 Dose: 40 mg Metoprolol Tartrate (Lopressor -) 25 mg PO TID [facility] Last Admin: 05/15/18 05:29 Dose: 25 mg Ondansetron HCl (Zofran Odt -) 8 mg SL Q8H PRN PRN Reason: NAUSEA AND/OR VOMITING Pantoprazole Sodium (Protonix -) 40 mg PO DAILY [facility] Last Admin: 05/15/18 10:45 Dose: 40 mg Sucralfate (Carafate Oral Suspension -) 1 gm PO QID [facility] Last Admin: 05/15/18 10:45 Dose: 1 gm IMAGING: -EKG: ATRIAL FIBRILLATION WITH RAPID VENTRICULAR RESPONSE, NONSPECIFIC T WAVE ABNORMALITY, VR 108, QTc 423 -CXR: Since 02/24/2018, the chronic interstitial and nodular changes with some alveolar components, prominent mediastinum and right port persist. -CTA: No definite CT evidence of pulmonary embolism. As on a prior CT exam of there is prominent bilateral interstitial thickening within the upper and lower lung walsh consistent with chronic interstitial lung disease. Possible mildly increased interstitial thickening is seen bilaterally since the prior exam which could be on the basis of additional chronic interstitial changes versus representing superimposed interstitial pneumonitis or interstitial vascular congestion. Clinical/laboratory correlation is suggested. Cardiomegaly is noted as on the prior study. Stable mild mediastinal and bilateral hilar lymphadenopathy is seen which is probably hyperplastic in nature. There has been interval insertion of a right internal jugular venous catheter with the catheter tip at the level of the superior cavoatrial junction. Stable 2.4 cm right adrenal adenoma -ECHO: LV Size, thickness, function are normal. LA moderately dilated, RA mildly dilated. Moderate MR and TR, Mild AR. ASSESSMENT/PLAN: 82 y/o female with PMHx of anal cancer (S/P Chemo and Radiation), Afib (on eliquis), CHF, and anxiety presents to the ED from Dr. Oneil's office for tachycardia and SOB. #Thrombocytopenia -S/P chemo with hx of thrombocytopenia requiring transfusion in the past; 2 units of platelets given this visit -Plt count rising; Continue Steroids to monitor appropriate rise -Continue to Hold Elliquis -Hematology (Dr. Oneil) consulted, Appreciate Rec's -Will Transfuse if bleeding or platelets less than 15k #Tachycardia -Likely due to AFib with RVR (CHADSVASC 5) -Rate improved with Q8H Metoprolol dosing -Elliquis held -Cardiology (Dr. Johnston) consulted, Appreciate Rec's #Hypokalemia -Repleted -Will keep K+ at 4-4.5 #SOB -Likely to due Acute CHF Exacerbation 2/2 Afib; Still consider Interstitial Lung disease -Continue Lasix -Changed IV Medrol to Prednisone 40mg -Strict I&Os, Daily weights -Continue Supplemental O2 HS -Pulmonology (Dr. Angel) Consulted, Appreciate Rec's -ID (Dr. Vickers) consulted for possible infiltrate on imaging -Repeat CXR in 24 hours to reevaluate; Continue to hold antibiotics for now #Chest Pressure -R/O ACS -Troponin <0.02 X2, EKG Noted above #Hx of Anxiety -Continue home dose Xanax #Nausea -Continue Zofran #FEN -PO Fluids -Will keep K+ 4-4.5, Mg 2-2.4, Phos 2.5-4.9 -Regular Diet #PPx -DVT: Early Ambulation; Elliquis held in the setting of Thrombocytopenia Dispo: D/C Pending steady increase in PLT count Full code Visit type - Emergency Visit Emergency Visit: Yes ED Registration Date: 05/07/18 Care time: The patient presented to the Emergency Department on the above date and was hospitalized for further evaluation of their emergent condition. - New Patient This patient is new to me today: No - Critical Care Critical Care patient: No - Discharge Referral Referred to [facility] No
--- NOTE | 2018-05-15 13:09 | PN ---
Progress Note, Physician Chief Complaint: Pt A&Ox3; OOB in chair, calm; plans on going home "in a day or two". History of Present Illness: The patient is an 82-year-old white female (ariel Castellnaos) with past medical history Afib, HTN, Anal CA, chronic interstitial lung disease, diastolic CHF, anxiety/depression, presents to the emergency department with chest pressure since January. The patient reports since January shes been having chest pressure since finishing chemo/radiation denies the discomfort radiation to the back. The patient reports associates symptoms of shortness of breath, states shes on O2 at home, unsure how much. Denies urinary complain, cough, nausea, vomiting. Allergies: Sulfa (Sulfonamide abx) Oncologist: Wilberto Oneil MD - Current Medication List Current Medications: Active Medications Alprazolam (Xanax -) 0.25 mg PO BID [facility] Last Admin: 05/15/18 10:45 Dose: 0.25 mg Docusate Sodium (Colace -) 100 mg PO TID [facility] Last Admin: 05/15/18 05:30 Dose: 100 mg Furosemide (Lasix -) 20 mg PO DAILY [facility] Last Admin: 05/15/18 10:45 Dose: 20 mg IV Flush (Noble-Cath Flush) 10 ml IVPUSH PRN PRN PRN Reason: FLUSH Megestrol Acetate (Megace Oral Suspension -) 400 mg PO DAILY [facility] Last Admin: 05/15/18 10:46 Dose: 400 mg Metoprolol Tartrate (Lopressor -) 25 mg PO TID [facility] Last Admin: 05/15/18 05:29 Dose: 25 mg Ondansetron HCl (Zofran Odt -) 8 mg SL Q8H PRN PRN Reason: NAUSEA AND/OR VOMITING Pantoprazole Sodium (Protonix -) 40 mg PO DAILY [facility] Last Admin: 05/15/18 10:45 Dose: 40 mg Prednisone (Deltasone -) 40 mg PO DAILY [facility] Sucralfate (Carafate Oral Suspension -) 1 gm PO QID [facility] Last Admin: 05/15/18 10:45 Dose: 1 gm - Objective Vital Signs: Vital Signs Temperature 98.5 F 05/15/18 06:00 Pulse Rate 100 H 05/15/18 06:00 Respiratory Rate 20 05/15/18 06:00 Blood Pressure 108/58 L 05/15/18 06:00 O2 Sat by Pulse Oximetry (%) 96 05/14/18 21:00 Constitutional: Yes: Cachectic Eyes: Yes: WNL HENT: Yes: WNL Neck: Yes: WNL Cardiovascular: Yes: Regular Rate and Rhythm Respiratory: Yes: Regular, SOB on Exertion Gastrointestinal: Yes: Soft ...Rectal Exam: Yes: Deferred Genitourinary: No: Anuria Breast(s): Yes: WNL Musculoskeletal: Yes: Muscle Weakness Extremities: Yes: Cool Edema: No Peripheral Pulses WNL: Yes Integumentary: Yes: WNL Neurological: Yes: Alert, Oriented, Weakness Psychiatric: Yes: Other (anxeity/depression) Labs: CBC, BMP 05/15/18 06:00 05/12/18 06:45 INR, PTT INR 1.42 (0.83-1.09) H 05/07/18 14:55 Problem List - Problems (1) Anxiety and depression Assessment/Plan: Pt insists she does not want to go to a fdc, having recently spent several weeks in one for rehabilitation, and hearing stories of poor treatment in other facilities. Code(s): F41.9 - ANXIETY DISORDER, UNSPECIFIED; F32.9 - MAJOR DEPRESSIVE DISORDER, SINGLE EPISODE, UNSPECIFIED (2) Thrombocytopenia Assessment/Plan: F/u with heme-onc. NOAC (being given for AF) held. Steroids (being given for pt's pulmonary disease) may increase platelets (mild increase over past 48 hours). Code(s): D69.6 - THROMBOCYTOPENIA, UNSPECIFIED (3) Anal cancer Code(s): C21.0 - MALIGNANT NEOPLASM OF ANUS, UNSPECIFIED (4) Atrial fibrillation Assessment/Plan: On metoprolol tid for HR control. TSH WNL; afebrile. NOAC held due to low platelets. Code(s): I48.91 - UNSPECIFIED ATRIAL FIBRILLATION Qualifiers: Atrial fibrillation type: unspecified Qualified Code(s): I48.91 - Unspecified atrial fibrillation (5) Diastolic CHF Assessment/Plan: On metoprolol and furosemide; both were held earlier today due to hypotension. Consider changing furosemide 20 mg daily to IVP. F/u BUn/Cr, electrolytes, daily weight (assuming initial weight listed, 150 lbs , was an error, pt has gained a few lbs since admission), Is and Os. Pt's multiple comorbidities (including CA, AF, CHF, thrombocytopenia, and IS lung disease) with weakness, periods of hypotension and tachycardia, make evaluation to r/o CAD problematic. Consider next chest CTA with attention to coronary arteries. Total cholesterol 137 mg/dL. Code(s): I50.30 - UNSPECIFIED DIASTOLIC (CONGESTIVE) HEART FAILURE (6) Interstitial lung disease Code(s): J84.9 - INTERSTITIAL PULMONARY DISEASE, UNSPECIFIED
[2018-05-16] MEDS: DOCUSATE SODIUM 100 MG CAPSULE (FP) PO SCH ×2 (05:25→13:50)
[2018-05-16] MEDS: METOPROLOL TARTRATE 25 MG TABLET (FP) PO SCH (05:25)
[2018-05-16 07:02] LABS: BASO % 0.4 % (0-2.0); EOS % 0.2 % (0-4.5); HEMATOCRIT 35.1 % (32.4-45.2); HEMOGLOBIN 11.4 GM/dL (10.7-15.3); LYMPH % 12.2 % (8-40); MCH 33.9 pg (25.7-33.7); MCHC 32.5 g/dl (32.0-36.0); MEAN CELL VOLUME 104.1 fl (80-96); MEAN PLT VOLUME 10.8 fl (7.5-11.1); MONO % 11.8 % (3.8-10.2); NEUT % 75.4 % (42.8-82.8); PLATELET COUNT 64 K/MM3 (134-434); RBC 3.37 M/mm3 (3.60-5.2); RDW 17.6 % (11.6-15.6); WHITE BLOOD COUNT 6.2 K/mm3 (4.0-10.0)
[2018-05-16] MEDS ORDERED: predniSONE 20 MG TABLET (UD) PO SCH ×2 (10:00→12:54)
[2018-05-16] MEDS ORDERED: PT OWN MED DRAWER 7, Y5N ONE (10:36)
--- NOTE | 2018-05-16 10:42 | PN ---
Progress Note (short form) - Note Progress Note: Heme/Onc Patient seen and examined at bedside feels well no complaints denies bleeding Platelets 64K today-continues to increase Patient wants to walk without a walker Vital Signs Temperature 98.1 F 05/16/18 06:00 Pulse Rate 87 05/16/18 06:00 Respiratory Rate 20 05/16/18 06:00 Blood Pressure 98/60 05/16/18 06:00 O2 Sat by Pulse Oximetry (%) 96 05/15/18 22:00 PE: Constitutional: Yes: No Distress, Calm, Thin Eyes: Yes: Conjunctiva Clear, EOM Intact HENT: Yes: Atraumatic, Normocephalic Neck: Yes: Supple, Trachea Midline Cardiovascular: Yes: Pulse Irregular. No: Murmur Respiratory: Yes: Regular, crackles with scattered wheezing Gastrointestinal: Yes: Normal Bowel Sounds, Soft. No: Tenderness Edema: Yes (trace nonpitting) Edema: LLE: Trace, RLE: Trace Psychiatric: Yes: Alert, Oriented 05/16/18 05:50 WBC 6.2 RBC 3.37 L Hgb 11.4 Hct 35.1 MCV 104.1 H MCHC 32.5 RDW 17.6 H Plt Count 64 L D Neutrophils % 75.4 Lymphocytes % 12.2 Monocytes % 11.8 H Eosinophils % 0.2 Basophils % 0.4 05/14/18 22:00 Mycoplasma Antibody - Preliminary Serum 05/08/18 22:15 Blood Culture - Final Blood - Peripheral Venous NO GROWTH AFTER 5 DAYS INCUBATION 05/08/18 22:10 Blood Culture - Final Blood - Peripheral Venous NO GROWTH AFTER 5 DAYS INCUBATION 05/09/18 09:15 Urine Culture - Final Urine - Urine Clean Catch NO GROWTH OBTAINED 82F with multiple medical problems presents to the ER at the direction of her oncologist due to tachycardia found to be in A fib with RVR. Hematology/ oncology consulted for history of cancer and being thrombocytopenic in the setting of anticoagulation. Problem List: Anal cancer s/p chemo radiation A fib with RVR on eliquis Thrombocytopenia in the setting of anticoagulation CHF exacerbation shortness of breath chronic interstitial lung disease on home o2 PRN Plan: continue to trend CBC for platelet count Platelet count continues to improve. on 05/13 patient was transfused platelets and on 05/14 her platelet count went from 25K to 39K. This was likely due to effect of platelet transfusion. On 05/14 the patient was started on steroids by pulmonary for interstitial lung disease and her platelets continue to increase. We are likely starting to see the effects of the steroids helping increase the platelets as patients generally will respond within 2-5 days. continue to hold eliquis for now in the setting of thrombocytopenia-Will discuss with attending about restarting anticoagulation given her increase in platelets no evidence of bleeding cardiology evaluation appreciated rest of management per primary medical team appreciate this consultative opportunity appreciate hospitalist team taking care of Dr. Oneil's patient Mycoplasma IgM pending Possible ABx but holding off per ID for now but will repeat CXR today Transfuse platelets PRN if platelet count drops below 10K or if patient has episodes of bleeding or febrile will follow
[2018-05-16] MEDS: ALPRAZolam 0.25 MG TABLET PO SCH (10:44)
[2018-05-16] MEDS: SUCRALFATE 1 GM/10 ML UNIT DOSE CUPS PO SCH ×3 (10:44→17:04)
[2018-05-16] MEDS: PANTOPRAZOLE 40 MG TABLET (FP) PO SCH (10:45)
[2018-05-16] MEDS: FUROSEMIDE 20 MG TABLET (FP) PO SCH (10:45)
[2018-05-16] MEDS: MEGESTROL ACETATE 400 MG/10 ML UNIT DOSE CUP PO SCH (10:46)
--- NOTE | 2018-05-16 11:43 | PN ---
Progress Note (short form) - Note Progress Note: feels better less weak still some chest discomfort when she walks no cough, no sob no dysphagia, no difficulty eating food Vital Signs Period Temp Pulse Resp BP Sys/Rao Pulse Ox Last 24 Hr 97.5 F-98.1 F 87-110 16-20 91-105/59-60 96 cor-rrr lungs bibasilar crackles abd soft,nt ext no edema CBC, BMP 05/16/18 05:50 05/12/18 06:45 Microbiology 05/14/18 22:00 Serum Mycoplasma Antibody - Preliminary 05/08/18 22:15 Blood - Peripheral Venous Blood Culture - Final NO GROWTH AFTER 5 DAYS INCUBATION 05/08/18 22:10 Blood - Peripheral Venous Blood Culture - Final NO GROWTH AFTER 5 DAYS INCUBATION 05/09/18 09:15 Urine - Urine Clean Catch Urine Culture - Final NO GROWTH OBTAINED a/p s/p chemo/rt for anal cancer weakness and thrombocytopnia improved ILD- on steroids, repeat cxray Problem List - Problems (1) Abnormal x-ray Code(s): R93.89 - ABNORMAL FINDINGS ON DX IMAGING OF OTH BODY STRUCTURES (2) Interstitial lung disease Code(s): J84.9 - INTERSTITIAL PULMONARY DISEASE, UNSPECIFIED (3) CHF (congestive heart failure) Code(s): I50.9 - HEART FAILURE, UNSPECIFIED (4) Atrial fibrillation Code(s): I48.91 - UNSPECIFIED ATRIAL FIBRILLATION Qualifiers: Atrial fibrillation type: unspecified Qualified Code(s): I48.91 - Unspecified atrial fibrillation (5) Thrombocytopenia Code(s): D69.6 - THROMBOCYTOPENIA, UNSPECIFIED (6) Anal cancer Code(s): C21.0 - MALIGNANT NEOPLASM OF ANUS, UNSPECIFIED
--- NOTE | 2018-05-16 12:26 | PN ---
Progress Note, Physician History of Present Illness: Pt is an 82yo f with PMH of anal cancer, Afib (on Eliquis), CHF presenting to ED with complaints of chest pressure x3 months since January. Pt has had chemotherapy and RT for anal cancer and states she has been feeling a chest pressure since then. It is associated with SOB (pt is on oxygen at home, does not know how much). Pt says pressure is there when she wakes up and does not go away. She denies fever, chills, cough, n/v, headaches, neck pain, lightheadedness. Admits to loss of appetite and fatigue. - Current Medication List Current Medications: Active Medications Alprazolam (Xanax -) 0.25 mg PO BID [facility] Last Admin: 05/16/18 10:44 Dose: 0.25 mg Docusate Sodium (Colace -) 100 mg PO TID [facility] Last Admin: 05/16/18 05:25 Dose: 100 mg Furosemide (Lasix -) 20 mg PO DAILY [facility] Last Admin: 05/16/18 10:45 Dose: 20 mg IV Flush (Noble-Cath Flush) 10 ml IVPUSH PRN PRN PRN Reason: FLUSH Megestrol Acetate (Megace Oral Suspension -) 400 mg PO DAILY [facility] Last Admin: 05/16/18 10:46 Dose: 400 mg Metoprolol Tartrate (Lopressor -) 25 mg PO BID [facility] Ondansetron HCl (Zofran Odt -) 8 mg SL Q8H PRN PRN Reason: NAUSEA AND/OR VOMITING Pantoprazole Sodium (Protonix -) 40 mg PO DAILY [facility] Last Admin: 05/16/18 10:45 Dose: 40 mg Prednisone (Deltasone -) 40 mg PO DAILY [facility] Last Admin: 05/16/18 10:45 Dose: 40 mg Sucralfate (Carafate Oral Suspension -) 1 gm PO QID [facility] Last Admin: 05/16/18 10:44 Dose: 1 gm - Objective Vital Signs: Vital Signs Temperature 98.1 F 05/16/18 06:00 Pulse Rate 87 05/16/18 06:00 Respiratory Rate 20 05/16/18 06:00 Blood Pressure 98/60 05/16/18 06:00 O2 Sat by Pulse Oximetry (%) 96 05/15/18 22:00 Eyes: Yes: WNL, Conjunctiva Clear, EOM Intact HENT: Yes: WNL, Atraumatic, Normocephalic Neck: Yes: WNL, Supple, Trachea Midline Cardiovascular: Yes: WNL, Regular Rate and Rhythm Respiratory: Yes: WNL, Regular, CTA Bilaterally Gastrointestinal: Yes: WNL, Normal Bowel Sounds Genitourinary: Yes: WNL Musculoskeletal: Yes: WNL Extremities: Yes: WNL Edema: No Integumentary: Yes: WNL Neurological: Yes: WNL, Alert, Oriented ...Motor Strength: WNL Psychiatric: Yes: WNL Labs: CBC, BMP 05/16/18 05:50 05/12/18 06:45 INR, PTT INR 1.42 (0.83-1.09) H 05/07/18 14:55 Assessment/Plan Assessment/Plan: Pt insists she does not want to go to a long-term, having recently spent several weeks in one for rehabilitation, and hearing stories of poor treatment in other facilities. Code(s): F41.9 - ANXIETY DISORDER, UNSPECIFIED; F32.9 - MAJOR DEPRESSIVE DISORDER, SINGLE EPISODE, UNSPECIFIED (2) Thrombocytopenia Assessment/Plan: F/u with heme-onc. NOAC (being given for AF) held. Steroids (being given for pt's pulmonary disease) may increase platelets (mild increase over past 48 hours). Code(s): D69.6 - THROMBOCYTOPENIA, UNSPECIFIED (3) Anal cancer Code(s): C21.0 - MALIGNANT NEOPLASM OF ANUS, UNSPECIFIED (4) Atrial fibrillation Assessment/Plan: On metoprolol tid for HR control. TSH WNL; afebrile. NOAC held due to low platelets. Code(s): I48.91 - UNSPECIFIED ATRIAL FIBRILLATION Qualifiers: Atrial fibrillation type: unspecified Qualified Code(s): I48.91 - Unspecified atrial fibrillation (5) Diastolic CHF Assessment/Plan: On metoprolol and furosemide; both were held earlier today due to hypotension. Consider changing furosemide 20 mg daily to IVP. F/u BUn/Cr, electrolytes, daily weight (assuming initial weight listed, 150 lbs , was an error, pt has gained a few lbs since admission), Is and Os. Pt's multiple comorbidities (including CA, AF, CHF, thrombocytopenia, and IS lung disease) with weakness, periods of hypotension and tachycardia, make evaluation to r/o CAD problematic. Consider next chest CTA with attention to coronary arteries. Total cholesterol 137 mg/dL. Code(s): I50.30 - UNSPECIFIED DIASTOLIC (CONGESTIVE) HEART FAILURE (6) Interstitial lung disease Code(s): J84.9 - INTERSTITIAL PULMONARY DISEASE, UNSPECIFIED
--- NOTE | 2018-05-16 12:36 | PN ---
Progress Note, Physician History of Present Illness: pulmonary alert,feeling better,less dyspneic,-cp,-cough - Current Medication List Current Medications: Active Medications Alprazolam (Xanax -) 0.25 mg PO BID [facility] Last Admin: 05/16/18 10:44 Dose: 0.25 mg Docusate Sodium (Colace -) 100 mg PO TID [facility] Last Admin: 05/16/18 05:25 Dose: 100 mg Furosemide (Lasix -) 20 mg PO DAILY [facility] Last Admin: 05/16/18 10:45 Dose: 20 mg IV Flush (Noble-Cath Flush) 10 ml IVPUSH PRN PRN PRN Reason: FLUSH Megestrol Acetate (Megace Oral Suspension -) 400 mg PO DAILY [facility] Last Admin: 05/16/18 10:46 Dose: 400 mg Metoprolol Tartrate (Lopressor -) 25 mg PO BID [facility] Ondansetron HCl (Zofran Odt -) 8 mg SL Q8H PRN PRN Reason: NAUSEA AND/OR VOMITING Pantoprazole Sodium (Protonix -) 40 mg PO DAILY [facility] Last Admin: 05/16/18 10:45 Dose: 40 mg Prednisone (Deltasone -) 40 mg PO DAILY [facility] Last Admin: 05/16/18 10:45 Dose: 40 mg Sucralfate (Carafate Oral Suspension -) 1 gm PO QID [facility] Last Admin: 05/16/18 10:44 Dose: 1 gm - Objective Vital Signs: Vital Signs Temperature 98.1 F 05/16/18 06:00 Pulse Rate 87 05/16/18 06:00 Respiratory Rate 20 05/16/18 06:00 Blood Pressure 98/60 05/16/18 06:00 O2 Sat by Pulse Oximetry (%) 96 05/15/18 22:00 Constitutional: Yes: Calm, Thin Eyes: Yes: WNL HENT: Yes: WNL Neck: Yes: WNL Cardiovascular: Yes: Pulse Irregular, S1, S2 Respiratory: Yes: Rales (bilateral crackles) Gastrointestinal: Yes: Normal Bowel Sounds, Soft Extremities: Yes: WNL Edema: No Labs: CBC, BMP 05/16/18 05:50 05/12/18 06:45 INR, PTT INR 1.42 (0.83-1.09) H 05/07/18 14:55 - ....Imaging Chest X-ray: Report Reviewed, Image Reviewed (no change) Problem List - Problems (1) Acute on chronic respiratory failure with hypoxemia Code(s): J96.21 - ACUTE AND CHRONIC RESPIRATORY FAILURE WITH HYPOXIA (2) Anxiety and depression Code(s): F41.9 - ANXIETY DISORDER, UNSPECIFIED; F32.9 - MAJOR DEPRESSIVE DISORDER, SINGLE EPISODE, UNSPECIFIED (3) Chest tightness Code(s): R07.89 - OTHER CHEST PAIN (4) Thrombocytopenia Code(s): D69.6 - THROMBOCYTOPENIA, UNSPECIFIED (5) Anal cancer Code(s): C21.0 - MALIGNANT NEOPLASM OF ANUS, UNSPECIFIED (6) Atrial fibrillation Code(s): I48.91 - UNSPECIFIED ATRIAL FIBRILLATION Qualifiers: Atrial fibrillation type: unspecified Qualified Code(s): I48.91 - Unspecified atrial fibrillation (7) CHF (congestive heart failure) Code(s): I50.9 - HEART FAILURE, UNSPECIFIED (8) Diastolic CHF Code(s): I50.30 - UNSPECIFIED DIASTOLIC (CONGESTIVE) HEART FAILURE (9) Interstitial lung disease Code(s): J84.9 - INTERSTITIAL PULMONARY DISEASE, UNSPECIFIED Assessment/Plan IMP ACUTE ON CHRONIC HYPOXEMIC RESPIRATORY FAILURE IMPROVING ILD ? ETIOLOGY DIASTOLIC HF CP ? CARDIAC AFIB THROMBOCYTOPENIA IMPROVING ON STEROIDS HYPOTENSION ANAL CA S/P RT/CHEMO ANXIETY PLAN MONITOR BP O2 LASIX TOLERATED MONITOR LYTES F/U CHEST X-RAY PFTS OUTPATIENT RATE CONTROL PER CARDIOLOGY MONITOR CBC,PLT CT CONTINUE STEROIDS DR RODGERS Problem List - Problems (1) Acute on chronic respiratory failure with hypoxemia Code(s): J96.21 - ACUTE AND CHRONIC RESPIRATORY FAILURE WITH HYPOXIA (2) Anxiety and depression Code(s): F41.9 - ANXIETY DISORDER, UNSPECIFIED; F32.9 - MAJOR DEPRESSIVE DISORDER, SINGLE EPISODE, UNSPECIFIED (3) Chest tightness Code(s): R07.89 - OTHER CHEST PAIN (4) Thrombocytopenia Code(s): D69.6 - THROMBOCYTOPENIA, UNSPECIFIED (5) Anal cancer Code(s): C21.0 - MALIGNANT NEOPLASM OF ANUS, UNSPECIFIED (6) Atrial fibrillation Code(s): I48.91 - UNSPECIFIED ATRIAL FIBRILLATION Qualifiers: Atrial fibrillation type: unspecified Qualified Code(s): I48.91 - Unspecified atrial fibrillation (7) CHF (congestive heart failure) Code(s): I50.9 - HEART FAILURE, UNSPECIFIED (8) Diastolic CHF Code(s): I50.30 - UNSPECIFIED DIASTOLIC (CONGESTIVE) HEART FAILURE (9) Interstitial lung disease Code(s): J84.9 - INTERSTITIAL PULMONARY DISEASE, UNSPECIFIED
[2018-05-16] MEDS ORDERED: predniSONE 20 MG TABLET (UD) PO ONE (13:30)
[2018-05-16 14:06] VITALS: BP 108/61; PULSE 108; TEMP 97.4
--- NOTE | 2018-05-16 14:55 | PN ---
Teaching Attending Note Name of Resident: Wendy Perry ATTENDING PHYSICIAN STATEMENT I saw and evaluated the patient. I reviewed the resident's note and discussed the case with the resident. I agree with the resident's findings and plan as documented. SUBJECTIVE: No fever or chills. no pain, NO SOB. OBJECTIVE: NAD CV: irreg irreg Lungs: minimal wheezing bilaterally Ext: trace edema . no erythema A/P : 82 y/o lady with h/o anal cancer ( chem/RTx), HTN, A fib , and Anxiety who was sent from [facility] office due to thrombocytopenia . she was diagnosed with ILD 1- Thrombocytopenia : improved 2- ILD 3- Acute diastolic heart failure , improved . 4- h/o A fib plan: - cont po lasix - cont steroids, prednisone 60 daiy recommended by [facility] . - No clinical signs of PNA . cxray reviewed. - cont to hold eliquis. can resume if plt count above 75k per heme. - tamar lgive prescription for CBC on Saturday to be faxed to Dr. Joe - Mycoplasma IgM Abs pending Dispo : pt is medically ready for dc. will prepare for dc home today .
--- NOTE | 2018-05-16 16:35 | DS ---
Physical Exam: SUBJECTIVE: Patient seen and examined this morning. No acute overnight events as per nursing. No new complaints. Denies any Chest pain, palpitations, SOB or dizziness. No new complaints otherwise. OBJECTIVE: Vital Signs Period Temp Pulse Resp BP Sys/Rao Pulse Ox Last 24 Hr 97.4 F-98.1 F 87-110 16-20 95-108/57-61 96-96 PHYSICAL EXAM GENERAL: A&Ox3 HEAD: NCAT EYES: PERRL, EOMI ENT: Oropharynx clear without exudates, moist mucous membranes. NECK: No JVD LUNGS: Minimal Wheezing HEART: Irregularly, Irregular, No murmur ABDOMEN: Soft, nontender, nondistended, + bowel sounds EXTREMITIES: 2+ pulses, no edema. NEUROLOGICAL: Cranial nerves II through XII grossly intact. Normal speech. LABS Laboratory Last Values WBC 6.2 K/mm3 (4.0-10.0) 05/16/18 05:50 RBC 3.37 M/mm3 (3.60-5.2) L 05/16/18 05:50 Hgb 11.4 GM/dL (10.7-15.3) 05/16/18 05:50 Hct 35.1 % (32.4-45.2) 05/16/18 05:50 MCV 104.1 fl (80-96) H 05/16/18 05:50 MCH 33.9 pg (25.7-33.7) H 05/16/18 05:50 MCHC 32.5 g/dl (32.0-36.0) 05/16/18 05:50 RDW 17.6 % (11.6-15.6) H 05/16/18 05:50 Plt Count 64 K/MM3 (134-434) L D 05/16/18 05:50 MPV 10.8 fl (7.5-11.1) 05/16/18 05:50 Absolute Neuts (auto) 4.7 K/mm3 (1.5-8.0) 05/16/18 05:50 Neutrophils % 75.4 % (42.8-82.8) 05/16/18 05:50 Lymphocytes % 12.2 % (8-40) 05/16/18 05:50 Monocytes % 11.8 % (3.8-10.2) H 05/16/18 05:50 Eosinophils % 0.2 % (0-4.5) 05/16/18 05:50 Basophils % 0.4 % (0-2.0) 05/16/18 05:50 Nucleated RBC % 0 % (0-0) 05/16/18 05:50 Platelet Estimate Decreased 05/07/18 14:55 Platelet Comment No clumping noted 05/09/18 05:30 PT with INR 16.80 SEC (9.7-13.0) H 05/07/18 14:55 INR 1.42 (0.83-1.09) H 05/07/18 14:55 Sodium 139 mmol/L (136-145) 05/12/18 06:45 Potassium 3.9 mmol/L (3.5-5.1) 05/12/18 06:45 Chloride 108 mmol/L (98-107) H 05/12/18 06:45 Carbon Dioxide 25 mmol/L (21-32) 05/12/18 06:45 Anion Gap 7 MMOL/L (8-16) L 05/12/18 06:45 BUN 17 mg/dL (7-18) 05/12/18 06:45 Creatinine 0.9 mg/dL (0.55-1.3) 05/12/18 06:45 Creat Clearance w eGFR > 60 (>60) 05/12/18 06:45 Random Glucose 84 mg/dL (74-106) 05/12/18 06:45 Calcium 8.0 mg/dL (8.5-10.1) L 05/12/18 06:45 Phosphorus 3.0 mg/dL (2.5-4.9) 05/12/18 06:45 Magnesium 1.9 mg/dL (1.8-2.4) 05/12/18 06:45 Total Bilirubin 0.5 mg/dL (0.2-1) 05/12/18 06:45 AST 16 U/L (15-37) 05/12/18 06:45 ALT 10 U/L (13-61) L 05/12/18 06:45 Alkaline Phosphatase 52 U/L (45-117) 05/12/18 06:45 Creatine Kinase 45 IU/L (26-192) 05/07/18 14:55 Troponin I < 0.02 ng/ml (0.00-0.05) 05/07/18 23:38 B-Natriuretic Peptide 2876.1 pg/ml (5-450) H 05/07/18 14:55 Total Protein 5.6 g/dl (6.4-8.2) L 05/12/18 06:45 Albumin 2.4 g/dl (3.4-5.0) L 05/12/18 06:45 Triglycerides 93 mg/dL (0-150) 05/12/18 06:45 Cholesterol 137 mg/dL (50-200) 05/12/18 06:45 Total LDL Cholesterol 97 mg/dL (5-100) 05/12/18 06:45 HDL Cholesterol 31 mg/dL (40-60) L 05/12/18 06:45 Vitamin B12 596 pg/ml (193-986) 05/10/18 06:50 Serum Folate 10 ng/mL (3.1-17.5) 05/10/18 06:50 TSH 5.17 uIU/ml (0.358-3.74) H 05/10/18 06:50 Free T4 1.13 ng/dl (0.76-1.46) 05/10/18 06:50 Urine Color Dkyellow 05/09/18 20:20 Urine Appearance Clear 05/09/18 20:20 Urine pH 6.0 (5.0-8.0) 05/09/18 20:20 Ur Specific [place] 1.021 (1.010-1.035) 05/09/18 20:20 Urine Protein Negative (NEGATIVE) 05/09/18 20:20 Urine Glucose (UA) Negative (NEGATIVE) 05/09/18 20:20 Urine Ketones Negative (NEGATIVE) 05/09/18 20:20 Urine Blood 1+ (NEGATIVE) H 05/09/18 20:20 Urine Nitrite Negative (NEGATIVE) 05/09/18 20:20 Urine Bilirubin Negative (<2.0 mg/dL) 05/09/18 20:20 Urine Urobilinogen 4.0 e.u/dl mg/dL (0.2-1.0) H 05/09/18 20:20 Ur Leukocyte Esterase 3+ (NEGATIVE) H 05/09/18 20:20 Urine WBC (Auto) 32 /hpf (3-5) 05/09/18 20:20 Urine RBC (Auto) 10 /hpf (0-3) 05/09/18 20:20 Ur Epithelial Cells Rare /HPF (FEW) 05/09/18 20:20 Calcium Oxalate Crystal Rare /hpf (NONE SEEN) 05/09/18 20:20 Hyaline Casts 3 /lpf 05/09/18 09:15 Urine Mucus Rare 05/09/18 20:20 Blood Type O POSITIVE 05/07/18 15:00 Antibody Screen Negative 05/07/18 15:00 Microbiology 05/14/18 22:00 Serum Mycoplasma Antibody - Preliminary 05/08/18 22:15 Blood - Peripheral Venous Blood Culture - Final NO GROWTH AFTER 5 DAYS INCUBATION 05/08/18 22:10 Blood - Peripheral Venous Blood Culture - Final NO GROWTH AFTER 5 DAYS INCUBATION 05/09/18 09:15 Urine - Urine Clean Catch Urine Culture - Final NO GROWTH OBTAINED IMAGING: -EKG: ATRIAL FIBRILLATION WITH RAPID VENTRICULAR RESPONSE, NONSPECIFIC T WAVE ABNORMALITY, VR 108, QTc 423 -CXR (05/07): Since 02/24/2018, the chronic interstitial and nodular changes with some alveolar components, prominent mediastinum and right port persist. -CXR (05/13): Since the prior study of 05/07/2018, there are increasing congestive and infiltrative changes with large heart, unfolded aorta and persistent right central line. Correlation recommended -CXR (05/16): 2 views of the chest have been submitted. A CT scan from 2017 showed chronic interstitial lung disease with some questionable alveolar components. The current exam shows what again could be chronic lung disease with superimposed acute changes. There is a large heart, unfolded aorta and right jugular line. The bones and soft tissues are intact. Correlation recommended -CTA: No definite CT evidence of pulmonary embolism. As on a prior CT exam of there is prominent bilateral interstitial thickening within the upper and lower lung walsh consistent with chronic interstitial lung disease. Possible mildly increased interstitial thickening is seen bilaterally since the prior exam which could be on the basis of additional chronic interstitial changes versus representing superimposed interstitial pneumonitis or interstitial vascular congestion. Clinical/laboratory correlation is suggested. Cardiomegaly is noted as on the prior study. Stable mild mediastinal and bilateral hilar lymphadenopathy is seen which is probably hyperplastic in nature. There has been interval insertion of a right internal jugular venous catheter with the catheter tip at the level of the superior cavoatrial junction. Stable 2.4 cm right adrenal adenoma -ECHO: LV Size, thickness, function are normal. LA moderately dilated, RA mildly dilated. Moderate MR and TR, Mild AR. HOSPITAL COURSE: Date of Admission:05/07/18 Date of Discharge: 05/16/18 82 y/o female presented to the ED from Dr. Oneil's office with tachycardia and SOB and was found to have thrombocytopenia. Hematology was consulted and patient was transfused 2 units of platelets. Patient experienced some SOB and Pulmonology was consulted. Patient was started on Steroids and her SOB improved ; additionally her platelet count sierra. Given her CTA findings of infiltrate ( Noted above), ID was consulted. Patient additionally experienced tachycardia for which cardiology was consulted. Her Trops < 0.02 x2, and her chest pressure resolved. Patient continued supplemental O2 use and her home medications however Her home dose Elliquis was held. Her tachycardia and SOB improved. Patient was discharged home on a steroid taper and with strict instructions to have follow up lab on saturday. Minutes to complete discharge: 40 Discharge Summary Reason For Visit: ATRIAL FIBRILLATION/ ACUTE [place] SYNDROME Current Active Problems Abnormal x-ray (Acute) Acute on chronic respiratory failure with hypoxemia (Acute) Chest tightness (Acute) Hypokalemia (Acute) Tachycardia (Acute) Thrombocytopenia (Acute) Anxiety and depression (Chronic) Interstitial lung disease (Chronic) Condition: Improved - Instructions Diet, Activity, Other Instructions: You presented to the hospital with shortness of breath and increased heart rate. You were found to have low platelet count and were transfused two unit of platelets. Physician Follow ups 1. PCP: In one week, please call to schedule follow up 2. Cardiology: Dr. Johnston in one week to further manage your tachycardia 3. Hematology: Dr. Oneil in one week to further manage your low platelet count 4. Pulmonology: Dr. Angel in one week to further manage your home oxygen and your interstitial lung disease Please have follow up Labs: CBC, BMP, Mag and Phos Saturday and fax to Dr. Oneil You are being prescribed Prednisone 60mg daily. You need to follow up with Dr. Oneil for specific instructions about dosing and taper. IT IS VERY IMPORTANT YOU DO NOT STOP THIS MEDICATION ABRUPTLY AND FOLLOW UP BEFORE YOU RUN OUT OF PILLS. Please continue all other medications as prescribed. Please continue to use your home oxygen and follow the instructions; REMEMBER THAT OXYGEN IS A FLAMMABLE GAS . do not smoke. Please return to the ER if you have any signs or symptoms of chest pain, shortness of breath, uncontrollable fever, chills, nausea, vomiting, numbness, tingling, or weakness in any part of your body, changes in vision, or slurred speech. Please return to the ER if symptoms persist, worsen, or new symptoms arise. please conitnue to hold eliquis for now. You will be OK to resume when Plt are above [address] Oneil will instruct you on timing , depending on blod work on Saturday Referrals: Shar Angel MD [Staff Physician] - Jesus Manuel Johnston MD [Staff Physician] - Wilberto Oneil MD [Primary Care Provider] - Disposition: HOME - Home Medications Comprehensive Discharge Medication List: Ambulatory Orders Alprazolam [Xanax] 0.25 mg PO TID PRN MDD 0.75 10/18/17 Ondansetron [Zofran *Odt*] 8 mg PO Q8H PRN 12/31/17 Megestrol Acetate Oral Susp [Megace Oral Suspension -] 400 mg PO DAILY 30 Days # 1 cup 01/05/18 Furosemide [Lasix -] 20 mg PO DAILY #7 tablet 02/22/18 Albuterol 0.083% Nebulizer Ela [Ventolin 0.083% Nebulizer Soln -] 1 vial NEB Q6H 05/08/18 Pantoprazole Sodium 1 tab PO DAILY 05/08/18 Sucralfate [Carafate] 10 ml PO QID 05/08/18 Docusate Sodium [Colace -] 100 mg PO TID #90 capsule 05/13/18 Metoprolol Tartrate [Lopressor -] 25 mg PO BID #60 tablet 05/16/18 Miscellaneous Drug Not In Syst [Outpatient Lab Test] 1 each ASDIR #1 misc predniSONE [Deltasone -] 60 mg PO DAILY #63 tablet 05/16/18 This patient is new to me today: No Emergency Visit: Yes ED Registration Date: 05/07/18 Care time: The patient presented to the Emergency Department on the above date and was hospitalized for further evaluation of their emergent condition. Critical Care patient: No - Discharge Referral Referred to [facility] No
[2018-05-16] MEDS ORDERED: METOPROLOL TARTRATE 25 MG TABLET (FP) PO SCH (22:00)
--- NOTE | 2018-05-17 14:47 | HOSP ---
Physical Examination Vital Signs: Findings/Remarks: patient called floor indicating she did not receive prednisone. medication was resent to [facility] pharmacy. i called mrs. Marie and informed her that medication was sent, and that she needs to take her prednisone today Labs: CBC, BMP 05/16/18 05:50 05/12/18 06:45
== END 2018-05-16 18:00 | disposition home or self-care (01) | DRG 813 ==
LOC: JER 13:56 → JERBED 17:41 → J4W 05-08 02:24 → J4S 05-10 09:56
PROVIDERS: ADMIT Internal Medicine; ATTEND Internal Medicine
PROC: 30233R1 Transfusion of Nonautologous Platelets into Peripheral Vein, Percutaneous Approach (ICD-10-PCS; principal; 2018-05-07)
DX: D69.59 Other secondary thrombocytopenia (principal); I50.33 Acute on chronic diastolic (congestive) heart failure; J96.21 Acute and chronic respiratory failure with hypoxia; R64 Cachexia; J84.9 Interstitial pulmonary disease, unspecified; C21.0 Malignant neoplasm of anus, unspecified; I48.91 Unspecified atrial fibrillation; D69.6 Thrombocytopenia, unspecified; I11.0 Hypertensive heart disease with heart failure; Z79.01 Long term (current) use of anticoagulants; I35.0 Nonrheumatic aortic (valve) stenosis; R07.89 Other chest pain; Z99.81 Dependence on supplemental oxygen; Z68.22 Body mass index [BMI] 22.0-22.9, adult; K57.30 Diverticulosis of large intestine without perforation or abscess without bleeding; F41.9 Anxiety disorder, unspecified; Z90.710 Acquired absence of both cervix and uterus; M79.7 Fibromyalgia; Z96.651 Presence of right artificial knee joint; F32.9 Major depressive disorder, single episode, unspecified; R11.0 Nausea; I95.9 Hypotension, unspecified; R00.0 Tachycardia, unspecified
CPT/HCPCS: 36415; 36430; 36511; 71045-TC-FY; 71046-TC-FY; 71275-TC; 80053; 80061; 81003; 81015; 82550; 82607; 82746; 83721; 83735; 83880; 84100; 84439; 84443; 84484; 85025; 85027; 85610; 86738; 86850; 86900; 86901; 87040; 87086; 90688; 93005; 93010; 93306-TC; 97116-GP; 97161-GP; 99285-25; G0008; J7030; P9034; P9038

== ENCOUNTER 2018-06-11 10:53 | Inpatient (IN) | payer OTHER, MEDICARE ==
--- NOTE | 2018-06-11 11:02 | PDOC ---
History of Present Illness - History of Present Illness Initial Comments: This is a 82 year old female, with a significant past medical history of Afib, HTN, Anal CA, and CHF, who presents to the emergency department today complaining of SOB and a progressively worsening cough for 2 days. Patient notes that she struggles to walk because she feels weak. She states she has a progressively worsening cough and reports associated SOB. Patient lives at home and denies any sick contacts or fever. The patient denies chest pain, headache and dizziness. Denies fever, chills, nausea, vomit, diarrhea and constipation. Denies dysuria, frequency, urgency and hematuria. Allergies: Sulfa Past surgical history: None reported Social history: No reported PCP: Dr. Carney 06/11/18 11:37 <Clarita Santos - Last Filed: 06/11/18 14:11> - General History Source: Patient Exam Limitations: No Limitations <Livia Paul - Last Filed: 06/13/18 18:56> - General Chief Complaint: Blood Pressure Problem Stated Complaint: HTN Time Seen by Provider: 06/11/18 11:02 Past History <Clarita Santos - Last Filed: 06/11/18 14:11> - Past Medical History Anemia: No Asthma: No Cancer: Yes (ANAL Cancer) Cardiac Disorders: No (A-FIB) CVA: No COPD: Yes (o2 dependent) CHF: No DVT: No Dementia: No Diabetes: No GI Disorders: No Disorders: Yes (UTI) HTN: Yes Hypercholesterolemia: No Liver Disease: No Seizures: No Thyroid Disease: No - Surgical History Abdominal Surgery: Yes Appendectomy: No Cardiac Surgery: No Cholecystectomy: No Lung Surgery: No Neurologic Surgery: Yes (BACK SX) Orthopedic Surgery: Yes (RT Knee replacement) - Immunization History Immunization Up to Date: Yes - Suicide/Smoking/Psychosocial Hx Smoking History: Never smoked Have you smoked in the past 12 months: No Hx Alcohol Use: No Drug/Substance Use Hx: No Substance Use Type: None Hx Substance Use Treatment: No <Livia Paul - Last Filed: 06/13/18 18:56> - Past Medical History Allergies/Adverse Reactions: Allergies Allergy/AdvReac Type Severity Reaction Status Date / Time Sulfa (Sulfonamide Allergy Unknown Verified 06/11/18 11:15 Antibiotics) Home Medications: Ambulatory Orders Alprazolam [Xanax] 0.25 mg PO BID MDD 0.75 10/18/17 Ondansetron [Zofran *Odt*] 8 mg PO Q8H PRN 12/31/17 Megestrol Acetate Oral Susp [Megace Oral Suspension -] 400 mg PO DAILY 30 Days # 1 cup 01/05/18 Furosemide [Lasix -] 20 mg PO DAILY #7 tablet 02/22/18 Albuterol 0.083% Nebulizer Ela [Ventolin 0.083% Nebulizer Soln -] 1 vial NEB Q6H 05/08/18 Docusate Sodium [Colace -] 100 mg PO TID #90 capsule 05/13/18 Metoprolol Tartrate [Lopressor -] 25 mg PO BID #60 tablet 05/16/18 predniSONE [Deltasone -] 20 mg PO TID 06/11/18 Review of Systems - Review of Systems Comments:: GENERAL/CONSTITUTIONAL: +Diffuse weakness. No fever or chills. HEAD, EYES, EARS, NOSE AND THROAT: No change in vision. No ear pain or discharge. No sore throat. CARDIOVASCULAR: +Shortness of breath. No chest pain. RESPIRATORY: +Cough. No wheezing or hemoptysis. GASTROINTESTINAL: No nausea, vomiting, diarrhea or constipation. GENITOURINARY: No dysuria, frequency, or change in urination. MUSCULOSKELETAL: No joint or muscle swelling or pain. No neck or back pain. SKIN: No rash NEUROLOGIC: No headache, vertigo, loss of consciousness, or change in strength/ sensation. ENDOCRINE: No increased thirst. No abnormal weight change. HEMATOLOGIC/LYMPHATIC: No anemia, easy bleeding, or history of blood clots. ALLERGIC/IMMUNOLOGIC: No hives or skin allergy. 06/11/18 11:38 <Clarita Santos - Last Filed: 06/11/18 14:11> *Physical Exam - Vital Signs Last Vital Signs Temp Pulse Resp BP Pulse Ox 64 24 H 99/60 93 L 06/11/18 11:12 06/11/18 11:12 06/11/18 11:12 06/11/18 11:12 - Physical Exam Comments: GENERAL: The patient is in no acute distress. HEAD: Normal with no signs of trauma. EYES: PERRLA, EOMI, sclera anicteric, conjunctiva clear. ENT: Ears normal, nares patent, oropharynx clear without exudates. Moist mucous membranes. NECK: Normal range of motion, supple without lymphadenopathy, JVD, or masses. LUNGS: +Coarse breath sounds bilaterally. No wheezes, and no crackles. HEART:+Irregularly irregular. +Tachycardic. ABDOMEN: Soft, nontender, normoactive bowel sounds. No guarding, no rebound. No masses palpable. EXTREMITIES: Normal range of motion, no edema. No clubbing or cyanosis. No erythema, or tenderness. NEUROLOGICAL: Cranial nerves II through XII grossly intact. Normal speech. No focal neurological deficits. MUSCULOSKELETAL: Back non-tender to palpation, no CVA tenderness SKIN: Warm, Dry, normal turgor, no rashes or lesions noted. 06/11/18 11:38 <Clarita Santos - Last Filed: 06/11/18 14:11> Moderate Sedation - Procedure Monitoring Vital Signs: Procedure Monitoring Vital Signs Temperature Pulse Rate 64 06/11/18 11:12 Respiratory Rate 24 H 06/11/18 11:12 Blood Pressure 99/60 06/11/18 11:12 O2 Sat by Pulse Oximetry (%) 93 L 06/11/18 11:12 <Clarita Santos - Last Filed: 06/11/18 14:11> ED Treatment Course - LABORATORY CBC & Chemistry Diagram: 06/11/18 11:30 06/11/18 11:30 - RADIOLOGY Radiograph Interpretation: RAD/CHEST X-RAY There are progressive congestive and infiltrative changes with pleural fluid. The right line persists. There is a prominent mediastinum. Correlation recommended. Reported By: Bobby Tong MD 06/11/18 13:22 06/11/18 14:11 <Clarita Santos - Last Filed: 06/11/18 14:11> - LABORATORY CBC & Chemistry Diagram: 06/13/18 05:00 06/13/18 05:00 <Livia Paul - Last Filed: 06/13/18 18:56> Medical Decision Making - Critical Care Time Total Critical Care Time (minutes): 90 Critical Care Statement: The care of this patient involved high complexity decision making to prevent further life threatening deterioration of the patient 's condition and/or to evaluate & treat vital organ system(s) failure or risk of failure. - Medical Decision Making 06/11/18 13:15 82 yo F presenting to the ER with a complaint of shortness of breath and generalized weakness no fevers or chills No vomiting or diarrhea Pt once reports abdominal pain but when asked again, she denies this No URI symptoms No dysuria on exam: Tachycardiac, irregularly irregular no murmur Rhoncherous breath sounds diffusely No abd tenderness No lower extremity edema Pt has petechea on thighs DD: Pulmonary: Pneumonia, CHF, metastatic cancer, Pleural effusion, ARDS Sepsis: (source) UTI, pneumonia, GI infectious source EKG: Afib rate of 123 bpm, axis nml, intervals nml, no ST elevation or depression Laboratory Tests 06/11/18 06/11/18 06/11/18 11:30 11:30 11:30 WBC 9.0 Hgb 12.7 Hct 38.2 Plt Count 72 L INR 2.89 H VBG pH 7.28 L POC VBG pCO2 26.6 L POC VBG pO2 44.5 Mixed VBG HCO3 12.0 L* Lactic Acid 06/11/18 11:30 WBC Hgb Hct Plt Count INR VBG pH POC VBG pCO2 POC VBG pO2 Mixed VBG HCO3 Lactic Acid 13.7 H* Pt platelets low - pt has a h/o thrombocytopenia in the past Pt INR elevated (not on anti coagulants) DD INR elevation: DIC (Ddimer/split products/fibrinogen added on), hepatic dysfunction, Biliary colic 06/11/18 13:25 Pt still receiving bolus of IVF Lactate 13.7 06/11/18 13:16 Received call from the lab that pt labs hemolyzed Labs re ordered 06/11/18 14:56 I have contacted the lab again re: pt labs Repeat lactate 12.7 Call placed to ICU Will admit to the ICU Repeat BP 114/80s Levophed ordered but pt is not hypotensive at this time 06/11/18 15:19 Laboratory Tests 06/11/18 06/11/18 14:00 14:00 Sodium 143 Potassium 4.6 Chloride 108 H Carbon Dioxide 12 L Anion Gap 23 H BUN 48 H Creatinine 1.6 H Random Glucose 53 L Total Bilirubin 4.2 H ALT 5822 H Creatine Kinase 126 Troponin I 0.07 H B-Natriuretic Peptide 98617.2 H Lipase 46 L Influenza A (Rapid) Negative Influenza B (Rapid) Negative CMP resulted: BNP elevated however can not diurese given current clinical picture Renal insufficiency Acidemia Trop elevated ( cardiology has seen this pateint) Will send for CT Chest, Abd and pelvis non contrast Will send to ICU Clinical impression: Severe Sepsis, initial presentation Source currently unclear <Livia Paul - Last Filed: 06/13/18 18:56> *DC/Admit/Observation/Transfer - Attestations Scribe Attestion: 06/11/18 11:39 Documentation prepared by JR Boone, acting as durable medical equipment repairer for Livia Paul MD. <Clarita Santos - Last Filed: 06/11/18 14:11> - Discharge Dispostion Decision to Admit order: Yes <Livia Paul - Last Filed: 06/13/18 18:56> Diagnosis at time of Disposition: Severe sepsis - Discharge Dispostion Condition at time of disposition: Fair
[2018-06-11] MEDS ORDERED: SODIUM CHLORIDE 1,742 ML IV ONE (11:18)
[2018-06-11 11:56] LABS: EOS % 0.1 % (0-4.5); HEMATOCRIT 38.2 % (32.4-45.2); HEMOGLOBIN 12.7 GM/dL (10.7-15.3); LYMPH % 1.3 % (8-40); MCH 37.7 pg (25.7-33.7); MCHC 33.4 g/dl (32.0-36.0); MEAN PLT VOLUME 12.4 fl (7.5-11.1); MONO % 4.6 % (3.8-10.2); PLATELET COUNT 72 K/MM3 (134-434); RBC 3.38 M/mm3 (3.60-5.2); RDW 18.9 % (11.6-15.6)
[2018-06-11 11:57] LABS: VENOUS PC02 26.6 mmHg (38-52); VENOUS PH 7.28 (7.32-7.42); VENOUS PO2 44.5 mmHg (28-48)
[2018-06-11] MEDS ORDERED: PIPERACILLIN/TAZOB 4.5 GM 4.5 GM in DEXTROSE 5%-WATER 100 ML IVPB ONE (12:07)
[2018-06-11 12:10] LABS: INR 2.89 (0.83-1.09); PROTHROMBIN TIME (PATIENT) 34.5 SEC (9.7-13.0)
[2018-06-11 12:12] LABS: ACTIVATED PTT 25.9 SECONDS (25.2-36.5)
[2018-06-11] MEDS ORDERED: PIPERACILLIN/TAZOB 4.5 GM 4.5 GM/100 ML BAG IVPB ONE (12:23)
[2018-06-11] MEDS ORDERED: METOPROLOL TARTRATE 25 MG TABLET (FP) PO ONE (12:27)
[2018-06-11] MEDS ORDERED: METOPROLOL TARTRATE 25 MG TABLET (FP) ONE (12:38)
[2018-06-11 13:37] LABS: ANISOCYTOSIS 1+; MACROCYTOSIS 1+; OVALOCYTE 1+; PLATELET ESTIMATE DECREASED
[2018-06-11 13:41] LABS: URINE APPEARANCE SLCLOUDY; URINE BILIRUBIN NEGATIVE (<2.0 mg/dL); URINE COLOR AMBER; URINE GLUCOSE (UA) NEGATIVE (NEGATIVE); URINE KETONE NEGATIVE (NEGATIVE); URINE LEUK ESTERASE NEGATIVE (NEGATIVE); URINE NITRITE NEGATIVE (NEGATIVE); URINE PROTEIN 3+ (NEGATIVE); URINE UROBILINOGEN 4.0 E.U/dl mg/dL (0.2-1.0)
[2018-06-11 13:44] LABS: URINE HYALINE CAST 5 /lpf
[2018-06-11] MEDS ORDERED: NOREPINEPHRINE BITARTRATE 4,000 MCG in DEXTROSE 5%-WATER - 496 ML IV SCH (13:45)
--- NOTE | 2018-06-11 14:42 | CONSULT ---
Consultation: REQUESTING PROVIDER: CONSULT REQUEST: We have been asked to medically evaluate this patient for sepsis. HISTORY OF PRESENT ILLNESS: 82 year old woman with history of Afib (on eliquis) HTN, HLD, CHF, anal cancer who presents with 2 days of shortness of breath after cold/ flu symptoms 1 week ago. She admits to some mild mid abdominal pain, denies N/V/D/C or fever. She denies chest pain, abd pain, lightheadedness, urinary burning or incontinence, or bowel incontinence. Denies recent travel. Patient reports compliance to all home medications. ED Course notable for: - on presentation to the ED the patient was tachycardic, hypotensive to 90s/70s , improvement of BP with IVF, up to the 110s systolic - lactic acid of 13.7 --> rpt 12.7 - WBC: 9, Hb 12.7, INR 2.89, VBG: pH7.28, pCO2 26.6, pO2 44.5, HCO3 12 - pending repeat cmp, lactic acid, BNP, lipase - negative UA REVIEW OF SYSTEMS: CONSTITUTIONAL: Absent: fever, chills, diaphoresis, generalized weakness, malaise, loss of appetite, weight change HEENT: Absent: rhinorrhea, nasal congestion, throat pain, throat swelling, difficulty swallowing, mouth swelling, ear pain, eye pain, visual changes CARDIOVASCULAR: Absent: chest pain, syncope, palpitations, irregular heart rate, lightheadedness , peripheral edema RESPIRATORY: Absent: cough, shortness of breath, dyspnea with exertion, orthopnea, wheezing, stridor, hemoptysis GASTROINTESTINAL: Absent: abdominal pain, abdominal distension, nausea, vomiting, diarrhea, constipation, melena, hematochezia GENITOURINARY: Absent: dysuria, frequency, urgency, hesitancy, hematuria, flank pain, genital pain MUSCULOSKELETAL: Absent: myalgia, arthralgia, joint swelling, back pain, neck pain SKIN: Absent: rash, itching, pallor HEMATOLOGIC/IMMUNOLOGIC: Absent: easy bleeding, easy bruising, lymphadenopathy, frequent infections ENDOCRINE: Absent: unexplained weight gain, unexplained weight loss, heat intolerance, cold intolerance NEUROLOGIC: Absent: headache, focal weakness or paresthesias, dizziness, unsteady gait, seizure, mental status changes, bladder or bowel incontinence PSYCHIATRIC: Absent: anxiety, depression, suicidal or homicidal ideation, hallucinations. PHYSICAL EXAMINATION Vital Signs - 24 hr 06/11/18 06/11/18 06/11/18 11:12 11:35 11:45 Temperature Pulse Rate 64 Pulse Rate [ 126 H 129 H Apical] Respiratory 24 H 27 H 28 H Rate Blood Pressure 99/60 Blood Pressure 93/71 106/67 [Right Arm] O2 Sat by Pulse 93 L 100 95 Oximetry (%) 06/11/18 06/11/18 06/11/18 12:00 12:20 12:40 Temperature 97.5 F L Pulse Rate 128 H Pulse Rate [ 120 H 125 H Apical] Respiratory 28 H 28 H 30 H Rate Blood Pressure 114/84 Blood Pressure 101/62 90/58 L [Right Arm] O2 Sat by Pulse 96 97 97 Oximetry (%) 06/11/18 06/11/18 06/11/18 12:47 13:00 13:20 Temperature Pulse Rate Pulse Rate [ 121 H 121 H Apical] Respiratory 26 H 24 H Rate Blood Pressure Blood Pressure 97/65 98/68 [Right Arm] O2 Sat by Pulse 96 98 100 Oximetry (%) 06/11/18 06/11/18 13:57 14:00 Temperature 96.6 F L 96.6 F L Pulse Rate Pulse Rate [ 123 H Apical] Respiratory 24 H Rate Blood Pressure Blood Pressure 109/85 [Right Arm] O2 Sat by Pulse 98 Oximetry (%) GENERAL: Awake, alert, and fully oriented, in no acute distress. HEAD: Normal with no signs of trauma. EYES: Pupils equal, round and reactive to light, extraocular movements intact, sclera anicteric, conjunctiva clear EARS, NOSE, THROAT: Moist mucous membranes. NECK: Normal range of motion LUNGS: + coarse breath sounds throughout, expiratory wheeze in the upper lobes, no crackles. No accessory muscle use. HEART: Regular rate and rhythm, normal S1 and S2 without murmur, rub or gallop. ABDOMEN: Soft, + slight L lower quadrant tenderness to palpation, no rebound or not distended, no guarding, no masses. No hepatomegaly or splenomegaly. MUSCULOSKELETAL: Normal range of motion at all joints. No bony deformities or tenderness. No CVA tenderness. UPPER EXTREMITIES: 2+ pulses, warm, well-perfused. No cyanosis. No clubbing. Cap refill <2 seconds. No peripheral edema. LOWER EXTREMITIES: 2+ pulses, warm, well-perfused. No calf tenderness. No peripheral edema. NEUROLOGICAL: Cranial nerves II-XII intact. Normal speech. Gait not observed PSYCHIATRIC: Cooperative. Good eye contact. Appropriate mood and affect. SKIN: Warm, dry, normal turgor, no rashes or lesions noted. Laboratory Results - last 24 hr 06/11/18 06/11/18 06/11/18 11:30 11:30 11:30 WBC 9.0 RBC 3.38 L Hgb 12.7 Hct 38.2 MCV 113.0 H D MCH 37.7 H D MCHC 33.4 RDW 18.9 H Plt Count 72 L MPV 12.4 H D Absolute Neuts (auto) 8.4 H Neutrophils % 94.0 H D Neutrophils % (Manual) 91.8 H Band Neutrophils % 1.0 Lymphocytes % 1.3 L D Lymphocytes % (Manual) 2.1 L D Monocytes % 4.6 Monocytes % (Manual) 5 Eosinophils % 0.1 Eosinophils % (Manual) 0.0 D Basophils % 0.0 Basophils % (Manual) 0.0 Myelocytes % (Man) 0 Promyelocytes % (Man) 0 Blast Cells % (Manual) 0 Nucleated RBC % 0 Metamyelocytes 0 Hypochromia 0 Platelet Estimate Decreased Polychromasia 1+ Poikilocytosis 1+ Anisocytosis 1+ Microcytosis 0 Macrocytosis 1+ Ovalocytes 1+ PT with INR 34.50 H INR 2.89 H PTT (Actin FS) 25.9 VBG pH POC VBG pCO2 POC VBG pO2 Mixed VBG HCO3 Sodium Cancelled Potassium Cancelled Chloride Cancelled Carbon Dioxide Cancelled Anion Gap Cancelled BUN Cancelled Creatinine Cancelled Creat Clearance w eGFR Cancelled Random Glucose Cancelled Lactic Acid Calcium Cancelled Magnesium Cancelled Total Bilirubin Cancelled AST Cancelled ALT Cancelled Alkaline Phosphatase Cancelled Creatine Kinase Cancelled Troponin I Cancelled Total Protein Cancelled Albumin Cancelled Urine Color Urine Appearance Urine pH Ur Specific [place] Urine Protein Urine Glucose (UA) Urine Ketones Urine Blood Urine Nitrite Urine Bilirubin Urine Urobilinogen Ur Leukocyte Esterase Urine WBC (Auto) Urine RBC (Auto) Hyaline Casts 06/11/18 06/11/18 06/11/18 11:30 11:30 12:00 WBC RBC Hgb Hct MCV MCH MCHC RDW Plt Count MPV Absolute Neuts (auto) Neutrophils % Neutrophils % (Manual) Band Neutrophils % Lymphocytes % Lymphocytes % (Manual) Monocytes % Monocytes % (Manual) Eosinophils % Eosinophils % (Manual) Basophils % Basophils % (Manual) Myelocytes % (Man) Promyelocytes % (Man) Blast Cells % (Manual) Nucleated RBC % Metamyelocytes Hypochromia Platelet Estimate Polychromasia Poikilocytosis Anisocytosis Microcytosis Macrocytosis Ovalocytes PT with INR INR PTT (Actin FS) VBG pH 7.28 L POC VBG pCO2 26.6 L POC VBG pO2 44.5 Mixed VBG HCO3 12.0 L* Sodium Potassium Chloride Carbon Dioxide Anion Gap BUN Creatinine Creat Clearance w eGFR Random Glucose Lactic Acid 13.7 H* Calcium Magnesium Total Bilirubin AST ALT Alkaline Phosphatase Creatine Kinase Troponin I Total Protein Albumin Urine Color Nery Urine Appearance Slcloudy Urine pH 5.0 Ur Specific [place] 1.022 Urine Protein 3+ H Urine Glucose (UA) Negative Urine Ketones Negative Urine Blood 2+ H Urine Nitrite Negative Urine Bilirubin Negative Urine Urobilinogen 4.0 e.u/dl H Ur Leukocyte Esterase Negative Urine WBC (Auto) 2 Urine RBC (Auto) 2 Hyaline Casts 5 Active Medications Generic Name Dose Route Start Last Admin Trade Name Freq PRN Reason Stop Dose Admin Norepinephrine Bitartrate 4, 500 mls @ 37.5 mls/hr 06/11/18 13:45 000 mcg/ Dextrose IV TITR JAKUB Protocol 5 MCG/MIN ASSESSMENT/PLAN: 82 year old woman with history of Afib (on eliquis) HTN, HLD, CHF, anal cancer who presents with 2 days of shortness of breath after cold/ flu symptoms 1 week ago. She admits to some mild mid abdominal pain, denies N/V/D/C or fever. She denies chest pain, abd pain, lightheadedness, urinary burning or incontinence, or bowel incontinence. On presentation to the ED the patient was tachycardic, hypotensive to 90s/70s. ED Course notable for: - improvement of BP with IVF, up to the 110s systolic - lactic acid of 13.7 --> repeat 12.7 - WBC: 9, Hb 12.7, INR 2.89, VBG: pH7.28, pCO2 26.6, pO2 44.5, HCO3 12 - BNP: - pending repeat cmp, lactic acid, BNP, lipase - negative UA Cardiac Afib, tachycardia, CHF, HTN, HLD - home Eliquis - hold due to INR of 2.89 - home meds: lopressor 25mg BID, lasix 20mg daily - tele monitoring - BNP: [id number] - pending Chest CT Pulm CHF - home med: ventolin neb - pending Chest CT - pending BNP, influenza, fibrinogen, D-dimer GI Anal Cancer, - patient started radiation and chemotherapy for anal cancer in September, and has since completed, but does not recall when she stopped. - pending Abd CT - pending lipase F/E/N - regular diet DVT ppx: SCDs GI ppx: pepcid Code Status: DNR/DNI Dispo: We will continue to follow the patient. Thank you for this consultative opportunity. Visit type - Emergency Visit Emergency Visit: Yes ED Registration Date: 06/11/18 Care time: The patient presented to the Emergency Department on the above date and was hospitalized for further evaluation of their emergent condition. - New Patient This patient is new to me today: Yes Date on this admission: 06/11/18 - Critical Care Critical Care patient: Yes Total Critical Care Time (in minutes): 40 Critical Care Statement: The care of this patient involved high complexity decision making to prevent further life threatening deterioration of the patient 's condition and/or to evaluate & treat vital organ system(s) failure or risk of failure.
[2018-06-11 15:05] LABS: ALBUMIN 2.4 g/dl (3.4-5.0); ALK PHOS 68 U/L (45-117); AMYLASE 52 U/L (25-115); ANION GAP 23 MMOL/L (8-16); BILIRUBIN,TOTAL 4.2 mg/dL (0.2-1); BLOOD UREA NITROGEN 48 mg/dL (7-18); CALCIUM 7.6 mg/dL (8.5-10.1); CHLORIDE 108 mmol/L (98-107); CO2 12 mmol/L (21-32); CREATININE 1.6 mg/dL (0.55-1.3); GLUCOSE,RANDOM 53 mg/dL (74-106); LIPASE 46 U/L (73-393); N-TERMINAL BNP 15377.2 pg/ml (5-450); POTASSIUM 4.6 mmol/L (3.5-5.1); SGPT/ALT 5822 U/L (13-61); SODIUM 143 mmol/L (136-145)
--- NOTE | 2018-06-11 15:05 | EKG ---
Test Reason : Blood Pressure : / mmHG Vent. Rate : 123 BPM Atrial Rate : 234 BPM P-R Int : 000 ms QRS Dur : 062 ms QT Int : 320 ms P-R-T Axes : 000 040 132 degrees QTc Int : 458 ms POOR DATA QUALITY, INTERPRETATION MAY BE ADVERSELY AFFECTED ATRIAL FIBRILLATION WITH RAPID VENTRICULAR RESPONSE NONSPECIFIC ST AND T WAVE ABNORMALITY ABNORMAL ECG WHEN COMPARED WITH ECG OF 10-MAY-2018 11:53, T WAVE INVERSION NO LONGER EVIDENT IN INFERIOR LEADS NONSPECIFIC T WAVE ABNORMALITY NOW EVIDENT IN LATERAL LEADS Confirmed by ROSA ELENA PLUNKETT, JACINTA ([id number]) on 06/11/2018 3:05:38 PM Referred By: Confirmed By:JACINTA CUBA MD
--- NOTE | 2018-06-11 15:11 | CON.CARD ---
Consult Consult Specialty:: Cardiology - History of Present Illness History of Present Illness: 82 year old woman with history of Afib (on eliquis) HTN, HLD, CHF, anal cancer who presents with 2 days of shortness of breath after cold/ flu symptoms 1 week ago. She admits to some mild mid abdominal pain, denies N/V/D/C or fever. She denies chest pain, abd pain, lightheadedness, urinary burning or incontinence, or bowel incontinence. Denies recent travel. Patient reports compliance to all home medications. ED Course notable for: - on presentation to the ED the patient was tachycardic, hypotensive to 90s/70s , improvement of BP with IVF, up to the 110s systolic - lactic acid of 13, however resulting from a hemolyzed lab test - WBC: 9, Hb 12.7, INR 2.89, VBG: pH7.28, pCO2 26.6, pO2 44.5, HCO3 12 - pending repeat cmp, lactic acid, BNP, lipase - negative UA - Past Medical History Cardio/Vascular: Yes: HTN Gastrointestinal: Yes: Diverticulosis, GI Bleed Renal/: Yes: Hematuria Psych: Yes: Anxiety Rheumatology: Yes: Fibromyalgia - Past Surgical History Past Surgical History: Yes: Hysterectomy, Joint Replacement (right knee) - Alcohol/Substance Use Hx Alcohol Use: No History of Substance Use: reports: None - Smoking History Smoking history: Never smoked Have you smoked in the past 12 months: No - Social History Usual Living Arrangement: Alone ADL: Independent 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 History of Recent Travel: No Home Medications - Allergies Allergies/Adverse Reactions: Allergies Allergy/AdvReac Type Severity Reaction Status Date / Time Sulfa (Sulfonamide Allergy Unknown Verified 06/11/18 11:15 Antibiotics) - Home Medications Home Medications: Ambulatory Orders Alprazolam [Xanax] 0.25 mg PO BID MDD 0.75 10/18/17 Ondansetron [Zofran *Odt*] 8 mg PO Q8H PRN 12/31/17 Megestrol Acetate Oral Susp [Megace Oral Suspension -] 400 mg PO DAILY 30 Days # 1 cup 01/05/18 Furosemide [Lasix -] 20 mg PO DAILY #7 tablet 02/22/18 Albuterol 0.083% Nebulizer Ela [Ventolin 0.083% Nebulizer Soln -] 1 vial NEB Q6H 05/08/18 Docusate Sodium [Colace -] 100 mg PO TID #90 capsule 05/13/18 Metoprolol Tartrate [Lopressor -] 25 mg PO BID #60 tablet 05/16/18 predniSONE [Deltasone -] 20 mg PO TID 06/11/18 Family Disease History - Family Disease History Family Disease History: CA: Father (leukemia), Sister (breast cancer), Other: Mother (alzheimer) Review of Systems - Review of Systems Constitutional: reports: No Symptoms Eyes: reports: No Symptoms HENT: reports: No Symptoms Neck: reports: No Symptoms Cardiovascular: reports: Shortness of Breath Gastrointestinal: reports: No Symptoms Genitourinary: reports: No Symptoms Breasts: reports: No Symptoms Reported Musculoskeletal: reports: No Symptoms Integumentary: reports: No Symptoms Neurological: reports: No Symptoms Endocrine: reports: No Symptoms Hematology/Lymphatic: reports: No Symptoms Psychiatric: reports: No Symptoms Vital Signs: Vital Signs Temperature 96.6 F L 06/11/18 14:00 Pulse Rate 123 H 06/11/18 14:00 Respiratory Rate 24 H 06/11/18 14:00 Blood Pressure 109/85 06/11/18 14:00 O2 Sat by Pulse Oximetry (%) 98 06/11/18 14:00 Constitutional: Yes: Well Nourished, No Distress, Calm Eyes: Yes: WNL, Conjunctiva Clear, EOM Intact HENT: Yes: WNL, Atraumatic, Normocephalic Neck: Yes: WNL, Supple, Trachea Midline Respiratory: Yes: Diminished Gastrointestinal: Yes: WNL, Normal Bowel Sounds Renal/: Yes: WNL Cardiovascular: Yes: Pulse Irregular Heart Sounds: Yes: S1, S2 Musculoskeletal: Yes: WNL Extremities: Yes: WNL Integumentary: Yes: WNL Neurological: Yes: WNL, Alert, Oriented ...Motor Strength: WNL Psychiatric: Yes: WNL, Alert, Oriented - Other Data Labs, Other Data: CBC, BMP 06/11/18 11:30 06/11/18 14:00 INR, PTT INR 2.89 (0.83-1.09) H 06/11/18 11:30 Troponin, BNP 06/11/18 06/11/18 11:30 14:00 Troponin I Cancelled 0.07 H B-Natriuretic Peptide 33262.2 H Troponin, BNP 06/11/18 06/11/18 11:30 14:00 Troponin I Cancelled 0.07 H B-Natriuretic Peptide 24515.2 H Imaging - Results Chest X-ray: Image Reviewed (chf) EKG: Image Reviewed (af rvr) Problem List - Problems (1) Severe sepsis Code(s): A41.9 - SEPSIS, UNSPECIFIED ORGANISM; R65.20 - SEVERE SEPSIS WITHOUT SEPTIC SHOCK (2) Abnormal x-ray Code(s): R93.89 - ABNORMAL FINDINGS ON DX IMAGING OF OT BODY STRUCTURES (3) Acute on chronic respiratory failure with hypoxemia Code(s): J96.21 - ACUTE AND CHRONIC RESPIRATORY FAILURE WITH HYPOXIA (4) Chest tightness Code(s): R07.89 - OTHER CHEST PAIN (5) Hypokalemia Code(s): E87.6 - HYPOKALEMIA (6) Tachycardia Code(s): R00.0 - TACHYCARDIA, UNSPECIFIED (7) Thrombocytopenia Code(s): D69.6 - THROMBOCYTOPENIA, UNSPECIFIED (8) Anal cancer Code(s): C21.0 - MALIGNANT NEOPLASM OF ANUS, UNSPECIFIED (9) Anxiety and depression Code(s): F41.9 - ANXIETY DISORDER, UNSPECIFIED; F32.9 - MAJOR DEPRESSIVE DISORDER, SINGLE EPISODE, UNSPECIFIED (10) Atrial fibrillation Code(s): I48.91 - UNSPECIFIED ATRIAL FIBRILLATION Qualifiers: Atrial fibrillation type: unspecified Qualified Code(s): I48.91 - Unspecified atrial fibrillation (11) CHF (congestive heart failure) Code(s): I50.9 - HEART FAILURE, UNSPECIFIED (12) Diarrhea Code(s): R19.7 - DIARRHEA, UNSPECIFIED Qualifiers: Diarrhea type: unspecified type Qualified Code(s): R19.7 - Diarrhea, unspecified (13) Diastolic CHF Code(s): I50.30 - UNSPECIFIED DIASTOLIC (CONGESTIVE) HEART FAILURE (14) Interstitial lung disease Code(s): J84.9 - INTERSTITIAL PULMONARY DISEASE, UNSPECIFIED (15) Pulmonary congestion Code(s): R09.89 - OTH SYMPTOMS AND SIGNS INVOLVING THE CIRC AND RESP SYSTEMS (16) UTI (urinary tract infection) Code(s): N39.0 - URINARY TRACT INFECTION, SITE NOT SPECIFIED Qualifiers: Urinary tract infection type: site unspecified Hematuria presence: without hematuria Qualified Code(s): N39.0 - Urinary tract infection, site not specified (17) Vomiting Code(s): R11.10 - VOMITING, UNSPECIFIED Qualifiers: Vomiting type: unspecified Vomiting Intractability: intractable Nausea presence: with nausea Qualified Code(s): R11.2 - Nausea with vomiting, unspecified (18) Weakness Code(s): R53.1 - WEAKNESS Assessment/Plan Afib RVR (on eliquis) HTN, HLD, CHF, anal cancer , sepsis/septic shock/?source Plan; UA CT chest abd/pelvis hemodynamic support with leveo, ABX ICU will f/u
[2018-06-11] MEDS ORDERED: DEXTROSE 50%-WATER - 25 GM/50 ML VIAL IVPUSH ONE (15:16)
[2018-06-11] MEDS ORDERED: DEXTROSE 50%-WATER 25 GM/50 ML DISP.SYRIN ONE (15:27)
--- NOTE | 2018-06-11 15:37 | HP ---
Admitting History and Physical - Primary Care Physician PCP: Prasanth Vargas - Admission History of Present Illness: 82 year old female, with a significant past medical history of Afib, HTN, Anal CA, and CHF, who presents to the emergency department today complaining of SOB and a progressively worsening cough for 2 days. Patient notes that she struggles to walk because she feels weak. She states she has a progressively worsening cough and reports associated SOB. Patient lives at home and denies any sick contacts or fever. 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 History of Recent Travel: No Home Medications - Allergies Allergies/Adverse Reactions: Allergies Allergy/AdvReac Type Severity Reaction Status Date / Time Sulfa (Sulfonamide Allergy Unknown Verified 06/11/18 11:15 Antibiotics) - Home Medications Home Medications: Ambulatory Orders Alprazolam [Xanax] 0.25 mg PO BID MDD 0.75 10/18/17 Ondansetron [Zofran *Odt*] 8 mg PO Q8H PRN 12/31/17 Megestrol Acetate Oral Susp [Megace Oral Suspension -] 400 mg PO DAILY 30 Days # 1 cup 01/05/18 Furosemide [Lasix -] 20 mg PO DAILY #7 tablet 02/22/18 Albuterol 0.083% Nebulizer Ela [Ventolin 0.083% Nebulizer Soln -] 1 vial NEB Q6H 05/08/18 Docusate Sodium [Colace -] 100 mg PO TID #90 capsule 05/13/18 Metoprolol Tartrate [Lopressor -] 25 mg PO BID #60 tablet 05/16/18 predniSONE [Deltasone -] 20 mg PO TID 06/11/18 Family Disease History - Family Disease History Family Disease History: CA: Father (leukemia), Sister (breast cancer), Other: Mother (alzheimer) Physical Examination Vital Signs: Vital Signs Temperature 96.6 F L 06/11/18 14:00 Pulse Rate 132 H 06/11/18 15:25 Respiratory Rate 28 H 06/11/18 15:25 Blood Pressure 98/32 L 06/11/18 15:25 O2 Sat by Pulse Oximetry (%) 99 06/11/18 15:25 Constitutional: Yes: No Distress HENT: Yes: Atraumatic Neck: Yes: Supple Cardiovascular: Yes: Regular Rate and Rhythm Respiratory: Yes: CTA Bilaterally Gastrointestinal: Yes: Normal Bowel Sounds Extremities: Yes: WNL Edema: No Peripheral Pulses WNL: Yes Neurological: Yes: Alert, Oriented Labs: CBC, BMP 06/11/18 11:30 06/11/18 14:00 Imaging - Results Cat Scan: Report Reviewed Problem List - Problems (1) Severe sepsis Assessment/Plan: on ivabx ivf pressors if needed Code(s): A41.9 - SEPSIS, UNSPECIFIED ORGANISM; R65.20 - SEVERE SEPSIS WITHOUT SEPTIC SHOCK (2) Atrial fibrillation Code(s): I48.91 - UNSPECIFIED ATRIAL FIBRILLATION Qualifiers: Atrial fibrillation type: unspecified Qualified Code(s): I48.91 - Unspecified atrial fibrillation (3) CHF (congestive heart failure) Code(s): I50.9 - HEART FAILURE, UNSPECIFIED (4) Thrombocytopenia Assessment/Plan: monitor will give platelets if needed Code(s): D69.6 - THROMBOCYTOPENIA, UNSPECIFIED (5) Acute renal disease Code(s): N28.9 - DISORDER OF KIDNEY AND URETER, UNSPECIFIED (6) Elevated LFTs Code(s): R94.5 - ABNORMAL RESULTS OF LIVER FUNCTION STUDIES (7) Supratherapeutic INR Code(s): R79.1 - ABNORMAL COAGULATION PROFILE Assessment/Plan Laboratory Tests 06/11/18 06/11/18 06/11/18 11:30 11:30 11:30 WBC 9.0 RBC 3.38 L Hgb 12.7 Hct 38.2 MCV 113.0 H D MCH 37.7 H D MCHC 33.4 RDW 18.9 H Plt Count 72 L MPV 12.4 H D Absolute Neuts (auto) 8.4 H Neutrophils % 94.0 H D Neutrophils % (Manual) 91.8 H Band Neutrophils % 1.0 Lymphocytes % 1.3 L D Lymphocytes % (Manual) 2.1 L D Monocytes % 4.6 Monocytes % (Manual) 5 Eosinophils % 0.1 Eosinophils % (Manual) 0.0 D Basophils % 0.0 Basophils % (Manual) 0.0 Myelocytes % (Man) 0 Promyelocytes % (Man) 0 Blast Cells % (Manual) 0 Nucleated RBC % 0 Metamyelocytes 0 Hypochromia 0 Platelet Estimate Decreased Polychromasia 1+ Poikilocytosis 1+ Anisocytosis 1+ Microcytosis 0 Macrocytosis 1+ Ovalocytes 1+ PT with INR 34.50 H INR 2.89 H PTT (Actin FS) 25.9 Fibrinogen D-Dimer VBG pH POC VBG pCO2 POC VBG pO2 Mixed VBG HCO3 Sodium Cancelled Potassium Cancelled Chloride Cancelled Carbon Dioxide Cancelled Anion Gap Cancelled BUN Cancelled Creatinine Cancelled Creat Clearance w eGFR Cancelled Random Glucose Cancelled Lactic Acid Calcium Cancelled Magnesium Cancelled Total Bilirubin Cancelled AST Cancelled ALT Cancelled Alkaline Phosphatase Cancelled Creatine Kinase Cancelled Troponin I Cancelled B-Natriuretic Peptide Total Protein Cancelled Albumin Cancelled Total Amylase Lipase Urine Color Urine Appearance Urine pH Ur Specific [place] Urine Protein Urine Glucose (UA) Urine Ketones Urine Blood Urine Nitrite Urine Bilirubin Urine Urobilinogen Ur Leukocyte Esterase Urine WBC (Auto) Urine RBC (Auto) Hyaline Casts Influenza A (Rapid) Influenza B (Rapid) 06/11/18 06/11/18 06/11/18 11:30 11:30 11:30 WBC RBC Hgb Hct MCV MCH MCHC RDW Plt Count MPV Absolute Neuts (auto) Neutrophils % Neutrophils % (Manual) Band Neutrophils % Lymphocytes % Lymphocytes % (Manual) Monocytes % Monocytes % (Manual) Eosinophils % Eosinophils % (Manual) Basophils % Basophils % (Manual) Myelocytes % (Man) Promyelocytes % (Man) Blast Cells % (Manual) Nucleated RBC % Metamyelocytes Hypochromia Platelet Estimate Polychromasia Poikilocytosis Anisocytosis Microcytosis Macrocytosis Ovalocytes PT with INR INR PTT (Actin FS) Fibrinogen 454.0 D-Dimer 4364 H VBG pH 7.28 L POC VBG pCO2 26.6 L POC VBG pO2 44.5 Mixed VBG HCO3 12.0 L* Sodium Potassium Chloride Carbon Dioxide Anion Gap BUN Creatinine Creat Clearance w eGFR Random Glucose Lactic Acid 13.7 H* Calcium Magnesium Total Bilirubin AST ALT Alkaline Phosphatase Creatine Kinase Troponin I B-Natriuretic Peptide Total Protein Albumin Total Amylase Lipase Urine Color Urine Appearance Urine pH Ur Specific [place] Urine Protein Urine Glucose (UA) Urine Ketones Urine Blood Urine Nitrite Urine Bilirubin Urine Urobilinogen Ur Leukocyte Esterase Urine WBC (Auto) Urine RBC (Auto) Hyaline Casts Influenza A (Rapid) Influenza B (Rapid) 06/11/18 06/11/18 06/11/18 12:00 14:00 14:00 WBC RBC Hgb Hct MCV MCH MCHC RDW Plt Count MPV Absolute Neuts (auto) Neutrophils % Neutrophils % (Manual) Band Neutrophils % Lymphocytes % Lymphocytes % (Manual) Monocytes % Monocytes % (Manual) Eosinophils % Eosinophils % (Manual) Basophils % Basophils % (Manual) Myelocytes % (Man) Promyelocytes % (Man) Blast Cells % (Manual) Nucleated RBC % Metamyelocytes Hypochromia Platelet Estimate Polychromasia Poikilocytosis Anisocytosis Microcytosis Macrocytosis Ovalocytes PT with INR INR PTT (Actin FS) Fibrinogen D-Dimer VBG pH POC VBG pCO2 POC VBG pO2 Mixed VBG HCO3 Sodium Potassium Chloride Carbon Dioxide Anion Gap BUN Creatinine Creat Clearance w eGFR Random Glucose Lactic Acid 12.7 H* Calcium Magnesium Total Bilirubin AST ALT Alkaline Phosphatase Creatine Kinase Troponin I B-Natriuretic Peptide Total Protein Albumin Total Amylase Lipase Urine Color [place] Urine Appearance Slcloudy Urine pH 5.0 Ur Specific [place] 1.022 Urine Protein 3+ H Urine Glucose (UA) Negative Urine Ketones Negative Urine Blood 2+ H Urine Nitrite Negative Urine Bilirubin Negative Urine Urobilinogen 4.0 e.u/dl H Ur Leukocyte Esterase Negative Urine WBC (Auto) 2 Urine RBC (Auto) 2 Hyaline Casts 5 Influenza A (Rapid) Negative Influenza B (Rapid) Negative 06/11/18 14:00 WBC RBC Hgb Hct MCV MCH MCHC RDW Plt Count MPV Absolute Neuts (auto) Neutrophils % Neutrophils % (Manual) Band Neutrophils % Lymphocytes % Lymphocytes % (Manual) Monocytes % Monocytes % (Manual) Eosinophils % Eosinophils % (Manual) Basophils % Basophils % (Manual) Myelocytes % (Man) Promyelocytes % (Man) Blast Cells % (Manual) Nucleated RBC % Metamyelocytes Hypochromia Platelet Estimate Polychromasia Poikilocytosis Anisocytosis Microcytosis Macrocytosis Ovalocytes PT with INR INR PTT (Actin FS) Fibrinogen D-Dimer VBG pH POC VBG pCO2 POC VBG pO2 Mixed VBG HCO3 Sodium 143 Potassium 4.6 Chloride 108 H Carbon Dioxide 12 L Anion Gap 23 H BUN 48 H Creatinine 1.6 H Creat Clearance w eGFR 31.01 Random Glucose 53 L Lactic Acid Calcium 7.6 L Magnesium Total Bilirubin 4.2 H AST ALT 5822 H Alkaline Phosphatase 68 Creatine Kinase 126 Troponin I 0.07 H B-Natriuretic Peptide 54002.2 H Total Protein 5.0 L Albumin 2.4 L Total Amylase 52 Lipase 46 L Urine Color Urine Appearance Urine pH Ur Specific [place] Urine Protein Urine Glucose (UA) Urine Ketones Urine Blood Urine Nitrite Urine Bilirubin Urine Urobilinogen Ur Leukocyte Esterase Urine WBC (Auto) Urine RBC (Auto) Hyaline Casts Influenza A (Rapid) Influenza B (Rapid) Active Medications Generic Name Dose Route Start Last Admin Trade Name Freq PRN Reason Stop Dose Admin Chlorhexidine Gluconate 1 applic 06/11/18 22:00 Hibiclens For Decolonization - TP HS [facility] Norepinephrine Bitartrate 4, 500 mls @ 37.5 mls/hr 06/11/18 13:45 000 mcg/ Dextrose IV TITR JAKUB Protocol 5 MCG/MIN Mupirocin 1 applic 06/11/18 22:00 Bactroban Ointment (For Decolonization) - NS 06/16/18 21:59 BID [facility] Active Medications Generic Name Dose Route Start Last Admin Trade Name Freq PRN Reason Stop Dose Admin Alprazolam 0.25 mg 06/11/18 22:00 Xanax - PO BID JAKUB Chlorhexidine Gluconate 1 applic 06/11/18 22:00 Hibiclens For Decolonization - TP HS [facility] Docusate Sodium 100 mg 06/11/18 22:00 Colace - PO TID JAKUB Lactated Ringer's 1,000 ml in 1,000 mls @ 75 mls/hr 06/11/18 17:45 06/11/18 17:50 Lactated Ringers Solution IV 75 mls/hr ASDIR JAKUB Administration Imipenem/Cilastatin Sodium 500 100 mls @ 100 mls/hr 06/11/18 22:00 mg/ Sodium Chloride IVPB BID JAKUB Protocol Metoprolol Tartrate 25 mg 06/11/18 22:00 Lopressor - PO BID JAKUB Mupirocin 1 applic 06/11/18 22:00 Bactroban Ointment (For Decolonization) - NS 06/16/18 21:59 BID JAKUB cc time 60 min
[2018-06-11 15:44] LABS: SGOT/AST 4520 U/L (15-37)
[2018-06-11 16:29] VITALS: BMI 24.0
[2018-06-11] MEDS ORDERED: FUROSEMIDE 40 MG/4 ML INJECTABLE VIAL IVPUSH ONE (17:00)
[2018-06-11] MEDS: LACTATED RINGERS SOLUTION 1,000 ML/1,000 ML INFUS.BAG IV SCH (17:50)
--- NOTE | 2018-06-11 18:06 | PN ---
Progress Note (short form) - Note Progress Note: Patient received in the ICU at 4 pm. Vitals BP: 140/100 mmHg, P-125 irregularly irregular, Spo2-95 % @ 3L, RR-18. Labs noted: creatinine 1.6 (baseline <1) Lactic acid 13.7---> 11.7; AST/ALT: 4520/5822; Lipase 46 BNP 95721; Trop 0.7 CT abdomen/pelvis/ CT without contrast: Cholethiasis. Acute Cholecystitis. Possible acute pancreatitis. Development of bilateral flank subcutaenous edema. Colonic diverticulosis is noted without evidence of acute diverticulitis. A stable 3.5 cm right adnexal cyst noted. B/L infiltrate, Right sided pleural effusion Physical Exam: General: Elderly female lying in bed comfortably, awake, alert, oriented x 3, in no acute distress HEENT: EOM intact, no pallor or icterus. Chest: B/L bibasilar crackles, not using accessory muscles CVS: Irregularly irregular rate, systolic murmur Abdomen: Soft, non tender, no organomegaly Rectal: Ext hemorrhoids + Ext: No edema Skin: Multiple ecchymosis, no ulcers Plan: Stat labs ordered: CMP, Mg, Phos, lactic acid, Troponins, urine electrolytes. Stool for occult blood sent. Will keep her NPO. Start IV LR @ 75 mls/hr ( Has bibasilar crackles, x-ray: congestive changes with pleural effusion, however, patient has lactic acidosis with acute cholecystitis with possible pancreatitis so will continue fluids with close monitoring) Renal Ultrasound ordered. Case discussed with Dr. Smith, started on IV Imipenem BID (dose adjusted as per GFR). Vanc trough in AM Case discussed with Dr. Merino, recommended to do a HIDA scan. Not a surgical candidate and to place IR consult for possible cholecystostomy. Explained the patient about the current medical condition, she is aware and verbalized understanding. Patient is DNR/DNI (patient signed the papers and its attached in the chart). Call placed to Dr. Carballo (Awaiting call back) Call placed to IR (Awaiting call back) 7:[address] Calderon ([phone]). Recommends abdominal ultrasound and if stable to do a HIDA scan. Once cholecystitis is confirmed, cholecystostomy to be done once INR is < 1.5. Will continue treating with IV fluids and continue IV antibiotics. Signed out to the night resident.
--- NOTE | 2018-06-11 20:18 | HP ---
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 History of Recent Travel: No Home Medications - Allergies Allergies/Adverse Reactions: Allergies Allergy/AdvReac Type Severity Reaction Status Date / Time Sulfa (Sulfonamide Allergy Unknown Verified 06/11/18 11:15 Antibiotics) - Home Medications Home Medications: Ambulatory Orders Alprazolam [Xanax] 0.25 mg PO BID MDD 0.75 10/18/17 Ondansetron [Zofran *Odt*] 8 mg PO Q8H PRN 12/31/17 Megestrol Acetate Oral Susp [Megace Oral Suspension -] 400 mg PO DAILY 30 Days # 1 cup 01/05/18 Furosemide [Lasix -] 20 mg PO DAILY #7 tablet 02/22/18 Albuterol 0.083% Nebulizer Ela [Ventolin 0.083% Nebulizer Soln -] 1 vial NEB Q6H 05/08/18 Docusate Sodium [Colace -] 100 mg PO TID #90 capsule 05/13/18 Metoprolol Tartrate [Lopressor -] 25 mg PO BID #60 tablet 05/16/18 predniSONE [Deltasone -] 20 mg PO TID 06/11/18 Family Disease History - Family Disease History Family Disease History: CA: Father (leukemia), Sister (breast cancer), Other: Mother (alzheimer) Physical Examination Vital Signs: Vital Signs Temperature 97 F L 06/11/18 19:54 Pulse Rate 122 H 06/11/18 19:54 Respiratory Rate 24 H 06/11/18 19:54 Blood Pressure 114/93 06/11/18 19:54 O2 Sat by Pulse Oximetry (%) 94 L 06/11/18 20:05 Labs: CBC, BMP 06/11/18 11:30 Problem List - Problems (1) Severe sepsis Code(s): A41.9 - SEPSIS, UNSPECIFIED ORGANISM; R65.20 - SEVERE SEPSIS WITHOUT SEPTIC SHOCK
[2018-06-11 21:24] LABS: ANION GAP 20 MMOL/L (8-16); BLOOD UREA NITROGEN 54 mg/dL (7-18); CHLORIDE 107 mmol/L (98-107); CO2 15 mmol/L (21-32); GLUCOSE,RANDOM 81 mg/dL (74-106); POTASSIUM 4.8 mmol/L (3.5-5.1); SODIUM 142 mmol/L (136-145)
[2018-06-11 21:25] LABS: ALBUMIN 2.5 g/dl (3.4-5.0); ALK PHOS 76 U/L (45-117); CALCIUM 7.6 mg/dL (8.5-10.1); MAGNESIUM 2.2 mg/dL (1.8-2.4); PHOSPHOROUS 7.3 mg/dL (2.5-4.9); SGOT/AST 8286 U/L (15-37); SGPT/ALT 6555 U/L (13-61)
[2018-06-11] MEDS: IMIPENEM/CILASTATIN SODIUM 500 MG in SODIUM CHLORIDE 100 ML IVPB SCH (22:48)
[2018-06-11] MEDS: ALPRAZolam 0.25 MG TABLET PO SCH (22:52)
[2018-06-11] MEDS: CHLORHEXIDINE GLUCONATE 4% CLEANSER FOR DECOLONIZATION TP SCH (23:13)
[2018-06-11] MEDS: MUPIROCIN 2% TOPICAL OINTMENT FOR DECOLONIZATION NS SCH (23:13)
[2018-06-11] MEDS: DOCUSATE SODIUM 100 MG CAPSULE (FP) PO SCH (23:13)
[2018-06-11] MEDS: METOPROLOL TARTRATE 25 MG TABLET (FP) PO SCH (23:14)
[2018-06-12 05:58] LABS: BASO % 0.3 % (0-2.0); EOS % 4.6 % (0-4.5); HEMOGLOBIN 12.2 GM/dL (10.7-15.3); LYMPH % 1.2 % (8-40); MCH 35.7 pg (25.7-33.7); MCHC 31.3 g/dl (32.0-36.0); MEAN CELL VOLUME 114.1 fl (80-96); MEAN PLT VOLUME 9.5 fl (7.5-11.1); MONO % 4.2 % (3.8-10.2); NEUT % 89.7 % (42.8-82.8); RBC 3.42 M/mm3 (3.60-5.2); RDW 18.8 % (11.6-15.6); WHITE BLOOD COUNT 8.4 K/mm3 (4.0-10.0)
[2018-06-12 06:03] LABS: PLATELET COUNT 17 K/MM3 (134-434)
[2018-06-12 06:08] LABS: PROTHROMBIN TIME (PATIENT) 50.7 SEC (9.7-13.0)
[2018-06-12 06:11] LABS: ACTIVATED PTT 28.8 SECONDS (25.2-36.5)
[2018-06-12 06:19] LABS: INR 4.23 (0.83-1.09)
[2018-06-12] MEDS ORDERED: NOREPINEPHRINE BITARTRATE 4 MG/4 ML ML IV ONE ×2 (06:37→20:51)
[2018-06-12 06:48] LABS: ALBUMIN 2.6 g/dl (3.4-5.0); ALK PHOS 90 U/L (45-117); ANION GAP 20 MMOL/L (8-16); BILIRUBIN,TOTAL 5.5 mg/dL (0.2-1); BLOOD UREA NITROGEN 60 mg/dL (7-18); CALCIUM 7.7 mg/dL (8.5-10.1); CHLORIDE 105 mmol/L (98-107); CO2 16 mmol/L (21-32); CREATININE 2.3 mg/dL (0.55-1.3); MAGNESIUM 2.2 mg/dL (1.8-2.4); N-TERMINAL BNP 14278.5 pg/ml (5-450); PHOSPHOROUS 7.6 mg/dL (2.5-4.9); POTASSIUM 5.1 mmol/L (3.5-5.1); SGOT/AST 7508 U/L (15-37); SGPT/ALT 7035 U/L (13-61); SODIUM 141 mmol/L (136-145); TOT PROT 5.2 g/dl (6.4-8.2)
[2018-06-12 06:54] LABS: GLUCOSE,RANDOM 31 mg/dL (74-106)
[2018-06-12] MEDS ORDERED: DEXTROSE 50%-WATER - 25 GM/50 ML VIAL IVPUSH ONE (06:54)
[2018-06-12] MEDS ORDERED: DEXTROSE 50%-WATER 25 GM/50 ML DISP.SYRIN ONE (06:55)
[2018-06-12] MEDS: DOCUSATE SODIUM 100 MG CAPSULE (FP) PO SCH ×3 (07:07→21:14)
[2018-06-12] MEDS: NOREPINEPHRINE BITARTRATE 8,000 MCG in DEXTROSE 5%-WATER - 492 ML IV SCH (07:08)
[2018-06-12] MEDS ORDERED: ALBUTEROL SO4 2.5/IPRATROPIUM 0.5 INH SOL 3 ML VIAL.NEB. NEB PRN (08:05)
--- NOTE | 2018-06-12 08:08 | PN ---
Physical Exam: SUBJECTIVE: Patient seen and examined Patient awake, alert, oriented OBJECTIVE: Vital Signs Period Temp Pulse Resp BP Sys/Rao Pulse Ox Last 24 Hr 95.5 F-98 F 64-132 20-30 90-142/32-126 92-100 GENERAL: The patient is awake, weak appearing HEAD: Normal with no signs of trauma. EYES: PERRLA, extraocular movements intact, sclera anicteric, conjunctiva clear. No ptosis. ENT: moist mucous membranes. NECK: Trachea midline LUNGS: Coarse breath sounds and crackles with expiratory wheeze bilaterally, no accessory muscle use. HEART: Regular rate and rhythm, S1, S2 without murmur, rub or gallop. ABDOMEN: Soft, + LLQ slight tenderness to palpation, nondistended, normoactive bowel sounds, no guarding, no rebound, no hepatosplenomegaly, no masses. EXTREMITIES: 2+ pulses, warm, well-perfused, no edema. NEUROLOGICAL: Cranial nerves II through XII grossly intact. Normal speech, gait not observed. SKIN: Warm, dry, normal turgor, no rashes or lesions noted Laboratory Results - last 24 hr 06/11/18 06/11/18 06/11/18 11:30 11:30 11:30 WBC 9.0 RBC 3.38 L Hgb 12.7 Hct 38.2 MCV 113.0 H D MCH 37.7 H D MCHC 33.4 RDW 18.9 H Plt Count 72 L MPV 12.4 H D Absolute Neuts (auto) 8.4 H Neutrophils % 94.0 H D Neutrophils % (Manual) 91.8 H Band Neutrophils % 1.0 Lymphocytes % 1.3 L D Lymphocytes % (Manual) 2.1 L D Monocytes % 4.6 Monocytes % (Manual) 5 Eosinophils % 0.1 Eosinophils % (Manual) 0.0 D Basophils % 0.0 Basophils % (Manual) 0.0 Myelocytes % (Man) 0 Promyelocytes % (Man) 0 Blast Cells % (Manual) 0 Nucleated RBC % 0 Metamyelocytes 0 Hypochromia 0 Platelet Estimate Decreased Polychromasia 1+ Poikilocytosis 1+ Anisocytosis 1+ Microcytosis 0 Macrocytosis 1+ Ovalocytes 1+ PT with INR 34.50 H INR 2.89 H PTT (Actin FS) 25.9 Fibrinogen D-Dimer VBG pH POC VBG pCO2 POC VBG pO2 Mixed VBG HCO3 Sodium Cancelled Potassium Cancelled Chloride Cancelled Carbon Dioxide Cancelled Anion Gap Cancelled BUN Cancelled Creatinine Cancelled Creat Clearance w eGFR Cancelled Random Glucose Cancelled Lactic Acid Calcium Cancelled Phosphorus Magnesium Cancelled Total Bilirubin Cancelled AST Cancelled ALT Cancelled Alkaline Phosphatase Cancelled Creatine Kinase Cancelled Troponin I Cancelled B-Natriuretic Peptide Total Protein Cancelled Albumin Cancelled Total Amylase Lipase Urine Color Urine Appearance Urine pH Ur Specific [place] Urine Protein Urine Glucose (UA) Urine Ketones Urine Blood Urine Nitrite Urine Bilirubin Urine Urobilinogen Ur Leukocyte Esterase Urine WBC (Auto) Urine RBC (Auto) Hyaline Casts Stool Occult Blood Influenza A (Rapid) Influenza B (Rapid) 06/11/18 06/11/18 06/11/18 11:30 11:30 11:30 WBC RBC Hgb Hct MCV MCH MCHC RDW Plt Count MPV Absolute Neuts (auto) Neutrophils % Neutrophils % (Manual) Band Neutrophils % Lymphocytes % Lymphocytes % (Manual) Monocytes % Monocytes % (Manual) Eosinophils % Eosinophils % (Manual) Basophils % Basophils % (Manual) Myelocytes % (Man) Promyelocytes % (Man) Blast Cells % (Manual) Nucleated RBC % Metamyelocytes Hypochromia Platelet Estimate Polychromasia Poikilocytosis Anisocytosis Microcytosis Macrocytosis Ovalocytes PT with INR INR PTT (Actin FS) Fibrinogen 454.0 D-Dimer 4364 H VBG pH 7.28 L POC VBG pCO2 26.6 L POC VBG pO2 44.5 Mixed VBG HCO3 12.0 L* Sodium Potassium Chloride Carbon Dioxide Anion Gap BUN Creatinine Creat Clearance w eGFR Random Glucose Lactic Acid 13.7 H* Calcium Phosphorus Magnesium Total Bilirubin AST ALT Alkaline Phosphatase Creatine Kinase Troponin I B-Natriuretic Peptide Total Protein Albumin Total Amylase Lipase Urine Color Urine Appearance Urine pH Ur Specific [place] Urine Protein Urine Glucose (UA) Urine Ketones Urine Blood Urine Nitrite Urine Bilirubin Urine Urobilinogen Ur Leukocyte Esterase Urine WBC (Auto) Urine RBC (Auto) Hyaline Casts Stool Occult Blood Influenza A (Rapid) Influenza B (Rapid) 06/11/18 06/11/18 06/11/18 12:00 14:00 14:00 WBC RBC Hgb Hct MCV MCH MCHC RDW Plt Count MPV Absolute Neuts (auto) Neutrophils % Neutrophils % (Manual) Band Neutrophils % Lymphocytes % Lymphocytes % (Manual) Monocytes % Monocytes % (Manual) Eosinophils % Eosinophils % (Manual) Basophils % Basophils % (Manual) Myelocytes % (Man) Promyelocytes % (Man) Blast Cells % (Manual) Nucleated RBC % Metamyelocytes Hypochromia Platelet Estimate Polychromasia Poikilocytosis Anisocytosis Microcytosis Macrocytosis Ovalocytes PT with INR INR PTT (Actin FS) Fibrinogen D-Dimer VBG pH POC VBG pCO2 POC VBG pO2 Mixed VBG HCO3 Sodium Potassium Chloride Carbon Dioxide Anion Gap BUN Creatinine Creat Clearance w eGFR Random Glucose Lactic Acid 12.7 H* Calcium Phosphorus Magnesium Total Bilirubin AST ALT Alkaline Phosphatase Creatine Kinase Troponin I B-Natriuretic Peptide Total Protein Albumin Total Amylase Lipase Urine Color N[place] Urine Appearance Slcloudy Urine pH 5.0 Ur Specific [place] 1.022 Urine Protein 3+ H Urine Glucose (UA) Negative Urine Ketones Negative Urine Blood 2+ H Urine Nitrite Negative Urine Bilirubin Negative Urine Urobilinogen 4.0 e.u/dl H Ur Leukocyte Esterase Negative Urine WBC (Auto) 2 Urine RBC (Auto) 2 Hyaline Casts 5 Stool Occult Blood Influenza A (Rapid) Negative Influenza B (Rapid) Negative 06/11/18 06/11/18 06/11/18 14:00 18:15 19:35 WBC RBC Hgb Hct MCV MCH MCHC RDW Plt Count MPV Absolute Neuts (auto) Neutrophils % Neutrophils % (Manual) Band Neutrophils % Lymphocytes % Lymphocytes % (Manual) Monocytes % Monocytes % (Manual) Eosinophils % Eosinophils % (Manual) Basophils % Basophils % (Manual) Myelocytes % (Man) Promyelocytes % (Man) Blast Cells % (Manual) Nucleated RBC % Metamyelocytes Hypochromia Platelet Estimate Polychromasia Poikilocytosis Anisocytosis Microcytosis Macrocytosis Ovalocytes PT with INR INR PTT (Actin FS) Fibrinogen D-Dimer VBG pH POC VBG pCO2 POC VBG pO2 Mixed VBG HCO3 Sodium 143 142 Potassium 4.6 4.8 Chloride 108 H 107 Carbon Dioxide 12 L 15 L Anion Gap 23 H 20 H BUN 48 H 54 H Creatinine 1.6 H 2.0 H Creat Clearance w eGFR 31.01 23.97 Random Glucose 53 L 81 Lactic Acid Calcium 7.6 L 7.6 L Phosphorus 7.3 H Magnesium 2.2 Total Bilirubin 4.2 H 5.0 H AST 4520 H 8286 H ALT 5822 H 6555 H Alkaline Phosphatase 68 76 Creatine Kinase 126 Troponin I 0.07 H B-Natriuretic Peptide 39750.2 H Total Protein 5.0 L 5.0 L Albumin 2.4 L 2.5 L Total Amylase 52 Lipase 46 L Urine Color Urine Appearance Urine pH Ur Specific [place] Urine Protein Urine Glucose (UA) Urine Ketones Urine Blood Urine Nitrite Urine Bilirubin Urine Urobilinogen Ur Leukocyte Esterase Urine WBC (Auto) Urine RBC (Auto) Hyaline Casts Stool Occult Blood Negative Influenza A (Rapid) Influenza B (Rapid) 06/11/18 06/11/18 06/12/18 19:35 19:35 05:30 WBC 8.4 RBC 3.42 L Hgb 12.2 Hct 39.0 MCV 114.1 H MCH 35.7 H MCHC 31.3 L RDW 18.8 H Plt Count 17 L* D MPV 9.5 D Absolute Neuts (auto) 7.5 Neutrophils % 89.7 H Neutrophils % (Manual) Band Neutrophils % Lymphocytes % 1.2 L Lymphocytes % (Manual) Monocytes % 4.2 Monocytes % (Manual) Eosinophils % 4.6 H D Eosinophils % (Manual) Basophils % 0.3 D Basophils % (Manual) Myelocytes % (Man) Promyelocytes % (Man) Blast Cells % (Manual) Nucleated RBC % 1 H Metamyelocytes Hypochromia Platelet Estimate Polychromasia Poikilocytosis Anisocytosis Microcytosis Macrocytosis Ovalocytes PT with INR INR PTT (Actin FS) Fibrinogen D-Dimer VBG pH POC VBG pCO2 POC VBG pO2 Mixed VBG HCO3 Sodium Potassium Chloride Carbon Dioxide Anion Gap BUN Creatinine Creat Clearance w eGFR Random Glucose Lactic Acid 11.5 H* Calcium Phosphorus Magnesium Total Bilirubin AST ALT Alkaline Phosphatase Creatine Kinase Troponin I 0.10 H B-Natriuretic Peptide Total Protein Albumin Total Amylase Lipase Urine Color Urine Appearance Urine pH Ur Specific [place] Urine Protein Urine Glucose (UA) Urine Ketones Urine Blood Urine Nitrite Urine Bilirubin Urine Urobilinogen Ur Leukocyte Esterase Urine WBC (Auto) Urine RBC (Auto) Hyaline Casts Stool Occult Blood Influenza A (Rapid) Influenza B (Rapid) 06/12/18 06/12/18 06/12/18 05:30 05:30 05:30 WBC RBC Hgb Hct MCV MCH MCHC RDW Plt Count MPV Absolute Neuts (auto) Neutrophils % Neutrophils % (Manual) Band Neutrophils % Lymphocytes % Lymphocytes % (Manual) Monocytes % Monocytes % (Manual) Eosinophils % Eosinophils % (Manual) Basophils % Basophils % (Manual) Myelocytes % (Man) Promyelocytes % (Man) Blast Cells % (Manual) Nucleated RBC % Metamyelocytes Hypochromia Platelet Estimate Polychromasia Poikilocytosis Anisocytosis Microcytosis Macrocytosis Ovalocytes PT with INR 50.70 H INR 4.23 H* PTT (Actin FS) 28.8 Fibrinogen D-Dimer VBG pH POC VBG pCO2 POC VBG pO2 Mixed VBG HCO3 Sodium 141 Potassium 5.1 Chloride 105 Carbon Dioxide 16 L Anion Gap 20 H BUN 60 H Creatinine 2.3 H Creat Clearance w eGFR 20.40 Random Glucose 31 L* Lactic Acid 10.1 H* Calcium 7.7 L Phosphorus 7.6 H Magnesium 2.2 Total Bilirubin 5.5 H AST 7508 H ALT 7035 H Alkaline Phosphatase 90 Creatine Kinase Troponin I B-Natriuretic Peptide 88323.5 H Total Protein 5.2 L Albumin 2.6 L Total Amylase Lipase Urine Color Urine Appearance Urine pH Ur Specific [place] Urine Protein Urine Glucose (UA) Urine Ketones Urine Blood Urine Nitrite Urine Bilirubin Urine Urobilinogen Ur Leukocyte Esterase Urine WBC (Auto) Urine RBC (Auto) Hyaline Casts Stool Occult Blood Influenza A (Rapid) Influenza B (Rapid) Active Medications Generic Name Dose Route Start Last Admin Trade Name Freq PRN Reason Stop Dose Admin Alprazolam 0.25 mg 06/11/18 22:00 06/11/18 22:52 Xanax - PO 0.25 mg BID JAKUB Administration Chlorhexidine Gluconate 1 applic 06/11/18 22:00 06/11/18 23:13 Hibiclens For Decolonization - TP 1 applic HS JAKUB Administration Dextrose 25 gm 06/12/18 06:54 06/12/18 07:08 D50w (Vial) - IVPUSH 06/12/18 06:55 25 gm NOW ONE Administration Docusate Sodium 100 mg 06/11/18 22:00 06/12/18 07:07 Colace - PO Not Given TID JAKUB Lactated Ringer's 1,000 ml in 1,000 mls @ 75 mls/hr 06/11/18 17:45 06/11/18 17:50 Lactated Ringers Solution IV 75 mls/hr ASDIR JAKUB Administration Imipenem/Cilastatin Sodium 500 100 mls @ 100 mls/hr 06/11/18 22:00 06/11/18 22:48 mg/ Sodium Chloride IVPB 100 mls/hr BID JAKUB Administration Protocol Norepinephrine Bitartrate 8, 500 mls @ 18.75 mls/hr 06/12/18 06:30 06/12/18 07:08 000 mcg/ Dextrose IV 5 mcg/min TITR JAKUB 18.75 mls/hr Administration Protocol 5 MCG/MIN Metoprolol Tartrate 25 mg 06/11/18 22:00 06/11/18 23:14 Lopressor - PO Not Given BID JAKUB Mupirocin 1 applic 06/11/18 22:00 06/11/18 23:13 Bactroban Ointment (For Decolonization) - NS 06/16/18 21:59 Not Given BID JAKUB ASSESSMENT/PLAN: 82 year old woman with history of Afib (on eliquis) HTN, HLD, CHF, anal cancer who presents with 2 days of shortness of breath after cold/ flu symptoms 1 week ago. She admits to some mild mid abdominal pain, denies N/V/D/C or fever. She denies chest pain, abd pain, lightheadedness, urinary burning or incontinence, or bowel incontinence. On presentation to the ED the patient was tachycardic, hypotensive to 90s/70s. ED Course notable for: - improvement of BP with IVF, up to the 110s systolic - lactic acid of 13.7 --> repeat 12.7 - WBC: 9, Hb 12.7, INR 2.89, VBG: pH7.28, pCO2 26.6, pO2 44.5, HCO3 12 - BNP: 06188 - Vancomycin and zosyn for empiric coverage - pending repeat cmp, lactic acid, BNP, lipase - negative UA Cardiac Afib, tachycardia, CHF, HTN, HLD, troponinemia - home Eliquis - hold due to INR of 2.89, lasix 20mg daily held - home meds: lopressor 25mg BID - tele monitoring - BNP: 66391 --> 22251 - troponin .07 --> .10 --> .09 Pulm CHF, COPD - home med: ventolin neb - Chest CT 06/11: mixed alveolar and interstitial opacities in upper and lower lung walsh bilaterally, small to moderate R sided pleural effusion, small L sided pleural effusion - BNP: 31389 --> 73096 - Influenza: negative - D-dimer: 4364 elevated GI Anal cancer, acute cholecystitis, possible acute pancreatitis, transaminitis - patient started radiation and chemotherapy for anal cancer in September, and has since completed it. - AST / ALT: 7508/7035 - Lipase: 46 - negative - Abd US 06/11: cholelithiasis w/ findings suggesting acute cholecystitis, no definite biliary tract dilation - IR contacted for cholecystostomy tube, pending platelets > 50 and INR < 1.5 ID Acute cholecystitis, Pneumonia - per ID: imipenem Renal BENJAMIN, prerenal BUN/Cr > 20 - trend BUN/Cr Heme Thrombocytopenia - Heme consulted, pending recs - trend platelets - ordered 2U platelets, 3U FFP, Vitamin K - pending platelets > 50 and INR < 1.5 for IR cholecystostomy tube Endo DM, hypoglycemia - blood glucose: 31 this am, D50 given, trend F/E/N - NPO - LR @ 75 DVT ppx: SCDs GI ppx: pepcid Code Status: Full code (discussed codes status yesterday after noon at which point, pt wanted to be DNR /DNI. Today at 1237 code status was discussed with daughter then patient. Discussion with patient witnessed by nurse, this card writer hand and Dr. Lloyd the patient desired to be reverted back to full code.) Dispo: We will continue to follow the patient. Thank you for this consultative opportunity. Visit type - Emergency Visit Emergency Visit: No - New Patient This patient is new to me today: No - Critical Care Critical Care patient: Yes Total Critical Care Time (in minutes): 35 Critical Care Statement: The care of this patient involved high complexity decision making to prevent further life threatening deterioration of the patient 's condition and/or to evaluate & treat vital organ system(s) failure or risk of failure.
[2018-06-12 08:21] LABS: AMYLASE 68 U/L (25-115); BILIRUBIN,DIRECT 4.1 mg/dL (0.0-0.2); LIPASE 128 U/L (73-393)
[2018-06-12] MEDS ORDERED: VANCOMYCIN 1 GRAM (PRE-DOCKED) 1,000 MG/250 ML BAG IVPB ONE (08:30)
--- NOTE | 2018-06-12 08:43 | PN ---
Progress Note, Physician Chief Complaint: Pt alert; no pain; dyspeic History of Present Illness: This is an 82 year old white female (ariel Castellanos) with a significant past medical history of Afib, HTN, Anal CA, and diastolic CHF, who presents to the emergency department today complaining of SOB and a progressively worsening cough for 2 days. Patient notes that she struggles to walk because she feels weak. She states she has a progressively worsening cough and reports associated SOB. Patient lives at home and denies any sick contacts or fever. The patient denies chest pain, headache and dizziness. Denies fever, chills, nausea, vomit, diarrhea and constipation. Denies dysuria, frequency, urgency and hematuria. Allergies: Sulfa Past surgical history: None reported - Current Medication List Current Medications: Active Medications Albuterol/Ipratropium (Duoneb -) 1 amp NEB Q6H PRN PRN Reason: SHORTNESS OF BREATH Alprazolam (Xanax -) 0.25 mg PO BID [facility] Last Admin: 06/11/18 22:52 Dose: 0.25 mg Chlorhexidine Gluconate (Hibiclens For Decolonization -) 1 applic TP HS [facility] Last Admin: 06/11/18 23:13 Dose: 1 applic Docusate Sodium (Colace -) 100 mg PO TID [facility] Last Admin: 06/12/18 07:07 Dose: Not Given Lactated Ringer's (Lactated Ringers Solution) 1,000 ml in 1,000 mls @ 75 mls/ hr IV ASDIR [facility] Last Admin: 06/11/18 17:50 Dose: 75 mls/hr Imipenem/Cilastatin Sodium 500 (mg/ Sodium Chloride) 100 mls @ 100 mls/hr IVPB BID [facility]; Protocol Last Admin: 06/11/18 22:48 Dose: 100 mls/hr Norepinephrine Bitartrate 8, (000 mcg/ Dextrose) 500 mls @ 18.75 mls/hr IV TITR [facility]; Protocol Last Admin: 06/12/18 07:08 Dose: 5 mcg/min, 18.75 mls/hr Famotidine/Sodium Chloride (Pepcid 20 Mg Premixed Ivpb -) 20 mg in 50 mls @ 100 mls/hr IVPB DAILY [facility] Metoprolol Tartrate (Lopressor -) 25 mg PO BID [facility] Last Admin: 06/11/18 23:14 Dose: Not Given Mupirocin (Bactroban Ointment (For Decolonization) -) 1 applic NS BID JAKUB Stop: 06/16/18 21:59 Last Admin: 06/11/18 23:13 Dose: Not Given Phytonadione (Aqua Mephyton Injection -) 10 mg SQ ONCE ONE Stop: 06/12/18 08:46 - Objective Vital Signs: Vital Signs Temperature 96.0 F L 06/12/18 08:00 Pulse Rate 127 H 06/12/18 08:00 Respiratory Rate 16 06/12/18 08:00 Blood Pressure 112/84 06/12/18 08:00 O2 Sat by Pulse Oximetry (%) 94 L 06/11/18 20:05 Constitutional: Yes: Anxious Eyes: Yes: WNL HENT: Yes: WNL Neck: Yes: WNL Cardiovascular: Yes: Tachycardia, S1, S2 Respiratory: Yes: Rhonchi, SOB on Exertion, Tachypnea Gastrointestinal: Yes: Soft. No: Tenderness ...Rectal Exam: Yes: Deferred Genitourinary: Yes: Anuria Breast(s): Yes: WNL Musculoskeletal: Yes: Muscle Weakness Extremities: Yes: Cool Edema: No Peripheral Pulses WNL: Yes Integumentary: Yes: WNL Neurological: Yes: Alert, Oriented, Weakness Psychiatric: Yes: Other (anxeity) Labs: CBC, BMP 06/12/18 05:30 06/12/18 05:30 INR, PTT INR 4.23 (0.83-1.09) H* 06/12/18 05:30 Fibrinogen 397.0 mg/dL (238-498) 06/12/18 06:30 Abnormal Lab Results 06/11/18 06/11/18 06/11/18 19:35 19:35 19:35 RBC MCV MCH MCHC RDW Plt Count Neutrophils % Lymphocytes % Eosinophils % Nucleated RBC % PT with INR INR ABG pH ABG pCO2 at Pt Temp ABG pO2 at Pt Temp ABG HCO3 ABG O2 Content ABG Base Excess Carbon Dioxide 15 L Anion Gap 20 H BUN 54 H Creatinine 2.0 H Random Glucose Lactic Acid 11.5 H* Calcium 7.6 L Phosphorus 7.3 H Total Bilirubin 5.0 H Direct Bilirubin AST 8286 H ALT 6555 H Troponin I 0.10 H B-Natriuretic Peptide Total Protein 5.0 L Albumin 2.5 L Random Vancomycin 06/12/18 06/12/18 06/12/18 05:30 05:30 05:30 RBC 3.42 L MCV 114.1 H MCH 35.7 H MCHC 31.3 L RDW 18.8 H Plt Count 17 L* D Neutrophils % 89.7 H Lymphocytes % 1.2 L Eosinophils % 4.6 H D Nucleated RBC % 1 H PT with INR 50.70 H INR 4.23 H* ABG pH ABG pCO2 at Pt Temp ABG pO2 at Pt Temp ABG HCO3 ABG O2 Content ABG Base Excess Carbon Dioxide 16 L Anion Gap 20 H BUN 60 H Creatinine 2.3 H Random Glucose 31 L* Lactic Acid Calcium 7.7 L Phosphorus 7.6 H Total Bilirubin 5.5 H Direct Bilirubin 4.1 H AST 7508 H ALT 7035 H Troponin I 0.09 H B-Natriuretic Peptide 79582.5 H Total Protein 5.2 L Albumin 2.6 L Random Vancomycin 06/12/18 06/12/18 06/12/18 05:30 07:40 09:55 RBC MCV MCH MCHC RDW Plt Count Neutrophils % Lymphocytes % Eosinophils % Nucleated RBC % PT with INR INR ABG pH 7.24 L* ABG pCO2 at Pt Temp 29.3 L ABG pO2 at Pt Temp 101.0 H ABG HCO3 12.2 L* ABG O2 Content ABG Base Excess -13.7 L* Carbon Dioxide Anion Gap BUN Creatinine Random Glucose Lactic Acid 10.1 H* Calcium Phosphorus Total Bilirubin Direct Bilirubin AST ALT Troponin I B-Natriuretic Peptide Total Protein Albumin Random Vancomycin < 0.8 L 06/12/18 06/12/18 06/12/18 15:35 15:35 15:35 RBC 2.95 L MCV 115.1 H MCH 38.1 H MCHC RDW 18.8 H Plt Count 96 L D Neutrophils % Lymphocytes % Eosinophils % Nucleated RBC % PT with INR 21.90 H INR 1.84 H ABG pH ABG pCO2 at Pt Temp ABG pO2 at Pt Temp ABG HCO3 ABG O2 Content ABG Base Excess Carbon Dioxide 15 L Anion Gap 22 H BUN 61 H Creatinine 2.4 H Random Glucose Lactic Acid Calcium 7.8 L Phosphorus Total Bilirubin 5.8 H Direct Bilirubin AST ALT 4988 H Troponin I 0.06 H B-Natriuretic Peptide Total Protein 6.1 L Albumin Random Vancomycin 06/12/18 06/12/18 06/12/18 15:35 15:35 16:40 RBC MCV MCH MCHC RDW Plt Count Neutrophils % Lymphocytes % Eosinophils % Nucleated RBC % PT with INR INR ABG pH 7.20 L* ABG pCO2 at Pt Temp 32.5 L ABG pO2 at Pt Temp 124.0 H D ABG HCO3 12.1 L* ABG O2 Content 14.1 L ABG Base Excess -14.6 L* Carbon Dioxide Anion Gap BUN Creatinine Random Glucose Lactic Acid 10.0 H* Calcium Phosphorus Total Bilirubin Direct Bilirubin AST ALT Troponin I B-Natriuretic Peptide 79945.7 H Total Protein Albumin Random Vancomycin - ....Imaging Chest X-ray: Image Reviewed Cat Scan: Image Reviewed EKG: Image Reviewed (AF with RVR) Problem List - Problems (1) Severe sepsis Assessment/Plan: Hypotensive, requiring norepinephrine and fluids. CT chest: inflammatory/infectious infiltrated with component of pulmonary edema; CT abdomen: cholelithiasis; ?acute Cholecystitis; pancreatitis. Elevated BUN/Cr (rising, and now 60/2.3; values were relatively normal one month ago). Apixaban held. Reversal of elevated INR if surgical procedure is planned. F/u Is and os (now has Magana). F/u electrolytes (rising and borderline elevated K+). Code(s): A41.9 - SEPSIS, UNSPECIFIED ORGANISM; R65.20 - SEVERE SEPSIS WITHOUT SEPTIC SHOCK (2) Anal cancer Assessment/Plan: f/u with oncologist. Code(s): C21.0 - MALIGNANT NEOPLASM OF ANUS, UNSPECIFIED (3) Acute renal disease Code(s): N28.9 - DISORDER OF KIDNEY AND URETER, UNSPECIFIED (4) Supratherapeutic INR Code(s): R79.1 - ABNORMAL COAGULATION PROFILE (5) Elevated LFTs Code(s): R94.5 - ABNORMAL RESULTS OF LIVER FUNCTION STUDIES (6) Thrombocytopenia Code(s): D69.6 - THROMBOCYTOPENIA, UNSPECIFIED (7) Diastolic CHF, acute on chronic Code(s): I50.33 - ACUTE ON CHRONIC DIASTOLIC (CONGESTIVE) HEART FAILURE (8) Atrial fibrillation with rapid ventricular response Assessment/Plan: Medications for HR control held due to hypotension; if HR becomes very rapid, will consider digoxin or amiodarone. Anticoagulant held (rising INR; imminent surgical procedure). Would advise restarting (IV heparin or DOAC) as soon as possible after procedure; otherwise, would consider "bridging" if procedure is delayed. Code(s): I48.91 - UNSPECIFIED ATRIAL FIBRILLATION Assessment/Plan CCU time spent: 35 minutes.
[2018-06-12] MEDS ORDERED: PHYTONADIONE 10 MG/1 ML AMP SQ ONE (08:45)
[2018-06-12] MEDS: FAMOTIDINE 20 MG/50 ML IVPB 20 MG/50 ML MG IVPB SCH (09:01)
[2018-06-12] MEDS ORDERED: FUROSEMIDE 20 MG TABLET (FP) PO SCH (10:00)
[2018-06-12] MEDS ORDERED: FAMOTIDINE 20 MG/50 ML IVPB 20 MG/50 ML MG IVPB SCH (10:00)
[2018-06-12 10:14] LABS: ARTERIAL BLD GAS O2 SATURATION 95.8 % (90-98.9); ARTERIAL BLOOD GAS BASE EXCESS -13.7 meq/l (-2-2); ARTERIAL BLOOD GAS PCO2 29.3 mmHg (35-45)
[2018-06-12 10:22] LABS: ALLENS TEST POSITIVE
[2018-06-12 10:23] LABS: ARTERIAL BLOOD GAS pH 7.24 (7.35-7.45)
[2018-06-12] MEDS: MUPIROCIN 2% TOPICAL OINTMENT FOR DECOLONIZATION NS SCH ×2 (10:56→21:14)
[2018-06-12] MEDS: IMIPENEM/CILASTATIN SODIUM 500 MG in SODIUM CHLORIDE 100 ML IVPB SCH ×2 (10:57→21:14)
[2018-06-12] MEDS: METOPROLOL TARTRATE 25 MG TABLET (FP) PO SCH ×2 (11:01→21:15)
[2018-06-12] MEDS: ALPRAZolam 0.25 MG TABLET PO SCH ×2 (11:02→21:16)
--- NOTE | 2018-06-12 11:05 | PN ---
Teaching Attending Note Name of Resident: Suyapa Beaulieu ATTENDING PHYSICIAN STATEMENT I saw and evaluated the patient. I reviewed the resident's note and discussed the case with the resident. I agree with the resident's findings and plan as documented. SUBJECTIVE: Pt seen and examined in the ICU. Hypotensive overnight, started on levophed gtt. Denies abdominal pain. Breathing slightly improved. No fevers recorded. OBJECTIVE: Vital Signs Period Temp Pulse Resp BP Sys/Rao Pulse Ox Last 24 Hr 95.5 F-98 F 64-132 16-30 90-142/32-126 92-100 Intake & Output 06/09/18 06/10/18 06/11/18 06/12/18 23:59 23:59 23:59 23:59 Intake Total 300 375 Balance 300 375 Weight 67.676 kg Gen: mildly tachypneic at rest Heart: tachyardic, regular Lung: bilateral rhonchi Abd: soft, nontender Ext: no edema CBC, BMP 06/12/18 05:30 06/12/18 05:30 Active Medications Albuterol/Ipratropium (Duoneb -) 1 amp NEB Q6H PRN PRN Reason: SHORTNESS OF BREATH Alprazolam (Xanax -) 0.25 mg PO BID JAKUB Last Admin: 06/11/18 22:52 Dose: 0.25 mg Chlorhexidine Gluconate (Hibiclens For Decolonization -) 1 applic TP HS JAKUB Last Admin: 06/11/18 23:13 Dose: 1 applic Docusate Sodium (Colace -) 100 mg PO TID JAKUB Last Admin: 06/12/18 07:07 Dose: Not Given Hydrocortisone Sodium Succinate (Solu-Cortef -) 50 mg IVPB Q6H-IV JAKUB Lactated Ringer's (Lactated Ringers Solution) 1,000 ml in 1,000 mls @ 75 mls/ hr IV ASDIR JAKUB Last Admin: 06/11/18 17:50 Dose: 75 mls/hr Imipenem/Cilastatin Sodium 500 (mg/ Sodium Chloride) 100 mls @ 100 mls/hr IVPB BID JAKUB; Protocol Last Admin: 06/12/18 10:57 Dose: 100 mls/hr Norepinephrine Bitartrate 8, (000 mcg/ Dextrose) 500 mls @ 18.75 mls/hr IV TITR JAKUB; Protocol Last Admin: 06/12/18 07:08 Dose: 5 mcg/min, 18.75 mls/hr Famotidine/Sodium Chloride (Pepcid 20 Mg Premixed Ivpb -) 20 mg in 50 mls @ 100 mls/hr IVPB DAILY [facility] Last Admin: 06/12/18 09:01 Dose: 100 mls/hr Metronidazole (Flagyl 500mg Premixed Ivpb -) 500 mg in 100 mls @ 100 mls/hr IVPB Q8H-IV JAKUB Metoprolol Tartrate (Lopressor -) 25 mg PO BID [facility] Last Admin: 06/11/18 23:14 Dose: Not Given Mupirocin (Bactroban Ointment (For Decolonization) -) 1 applic NS BID [facility] Stop: 06/16/18 21:59 Last Admin: 06/12/18 10:56 Dose: 1 applic ASSESSMENT AND PLAN: Acuet Cholangitis vs Cholecystitis Septic Shock Lactic Acidosis Acute Kidney Injury Metabolic Acidosis Elevated LFTs Atrial Fibrillation with RVR LV Diastolic Dysfunction Thrombocytopenia Interstitial Lung Disease h/o Anal Cancer HTN Hyperlipidemia - IV antibiotics - f/u cultures - IVF - monitor urine output, creatinine - monitor ABG, start bicarb if pH <7.2 - titrate levophed gtt to maintain MAP >65 - stress dose steroids - transfuse platelets, FFP - cholecystostomy placement when coagulopathy corrected - discuss with pt and family advanced directives, may need temporary intubation - NPO - continue ICU monitoring critical care time spent in reviewing chart, evaluating patient and formulating plan 35 min
[2018-06-12] MEDS: HYDROCORTISONE SOD SUCCINATE 100 MG/2 ML VIAL IVPB SCH ×3 (11:13→21:14)
--- NOTE | 2018-06-12 13:02 | CONSULT ---
Consultation: REQUESTING PROVIDER: Dr. Vargas CONSULT REQUEST FOR HEMATOLOGY/ONCOLOGY: We have been asked to medically evaluate this patient for thrombocytopenia. HISTORY OF PRESENT ILLNESS: Patient is an 82 year old female with a PMHx of Afib (on eliquis) HTN, HLD, CHF , anal cancer s/p chemo and radiation who presents to the hospital for shortness of breath. According to her daughters at bedside, patient had cold- like symptoms that started one week ago with a cough, runny nose and weakness. However, in the past two days patient was having progressive shortness of breath associated with nonradiating, sharp, mid abdominal pain, which prompted this hospital visit. In the ED patient was fond to be in severe sepsis with Lactic acid >12 Imaging done, which revealed cholelithiasis. Patient LFT's were elevated in the 1000's, concerning for ascending cholangitis Plans to have IR Guided cholecystostomy, however patient found to be thrombocytopenic and we were consulted for further evaluation, On my evaluation, patient was weak, coughing, and short of breath. Unable to provide much information but reports she feels weak and denies any fever, chills , nausea, vomiting, chest pain, dizziness, diarrhea, lightheadedness, urinary burning or incontinence, or bowel incontinence, hematuria, hematochezia, hematemesis, melena. PMHx: Anal Cancer s/p chemo and radiation Atrial Fibrillation (On eliquis) HTN HLD Diastolic CHF Anxiety Fibromyalgia PSHx: Hysterectomy Joint Replacement (right knee) Social Hx: Denies alcohol use Denies smoking Denies drugs REVIEW OF SYSTEMS: CONSTITUTIONAL: Absent: fever, chills, diaphoresis, generalized weakness, malaise, loss of appetite, weight change HEENT: rhinorrhea, nasal congestion Absent: throat pain, throat swelling, difficulty swallowing, mouth swelling, ear pain, eye pain, visual changes CARDIOVASCULAR: Absent: chest pain, syncope, palpitations, irregular heart rate, lightheadedness , peripheral edema RESPIRATORY: cough, shortness of breath Absent: dyspnea with exertion, orthopnea, wheezing, stridor, hemoptysis GASTROINTESTINAL: abdominal pain Absent: abdominal distension, nausea, vomiting, diarrhea, constipation, melena, hematochezia GENITOURINARY: Absent: dysuria, frequency, urgency, hesitancy, hematuria, flank pain, genital pain MUSCULOSKELETAL: Absent: myalgia, arthralgia, joint swelling, back pain, neck pain SKIN: Absent: rash, itching, pallor HEMATOLOGIC/IMMUNOLOGIC: Absent: easy bleeding, easy bruising, lymphadenopathy, frequent infections ENDOCRINE: Absent: unexplained weight gain, unexplained weight loss, heat intolerance, cold intolerance NEUROLOGIC: Absent: headache, focal weakness or paresthesias, dizziness, unsteady gait, seizure, mental status changes, bladder or bowel incontinence PSYCHIATRIC: Absent: anxiety, depression, suicidal or homicidal ideation, hallucinations. PHYSICAL EXAMINATION Vital Signs Temperature 96.0 F L 06/12/18 12:00 Pulse Rate 114 H 06/12/18 12:00 Respiratory Rate 30 H 06/12/18 12:00 Blood Pressure 102/63 06/12/18 12:00 O2 Sat by Pulse Oximetry (%) 95 06/12/18 09:00 GENERAL: frail, ill-looking, in mild distress. HEAD: Normal with no signs of trauma. EYES: PERRL, extraocular movements intact, (+) sclera icteric. ENT: Dry mucous membranes LUNGS: Coarse breath sounds and crackles with expiratory wheeze bilaterally, no accessory muscle use. HEART: Tachycardic with irregularly irregular rhythm, normal S1 and S2 without murmur, rub or gallop. ABDOMEN: Soft, TTP of LLQ, not distended, normoactive bowel sounds, no guarding , no rebound, no masses. EXTREMITIES: Chronic venous stasis with pedal edema NEUROLOGICAL: Cranial nerves II-XII intact. Normal speech. Normal gait. PSYCHIATRIC: Cooperative. Good eye contact. Appropriate mood and affect. SKIN: Warm, dry, normal turgor, no rashes or lesions noted. Laboratory Results 06/12/18 05:30 06/12/18 05:30 06/12/18 06/12/18 05:30 05:30 INR 4.23 H* Direct Bilirubin 4.1 H AST 7508 H ALT 7035 H Active Medications Generic Name Dose Route Start Last Admin Trade Name Freq PRN Reason Stop Dose Admin Albuterol/Ipratropium 1 amp 06/12/18 08:05 Duoneb - NEB Q6H PRN SHORTNESS OF BREATH Alprazolam 0.25 mg 06/11/18 22:00 06/12/18 11:02 Xanax - PO Not Given BID JAKUB Chlorhexidine Gluconate 1 applic 06/11/18 22:00 06/11/18 23:13 Hibiclens For Decolonization - TP 1 applic HS JAKUB Administration Docusate Sodium 100 mg 06/11/18 22:00 06/12/18 07:07 Colace - PO Not Given TID JAKUB Hydrocortisone Sodium Succinate 50 mg 06/12/18 10:30 06/12/18 11:13 Solu-Cortef - IVPB 50 mg Q6H-IV JAKUB Administration Lactated Ringer's 1,000 ml in 1,000 mls @ 75 mls/hr 06/11/18 17:45 06/11/18 17:50 Lactated Ringers Solution IV 75 mls/hr ASDIR JAKUB Administration Imipenem/Cilastatin Sodium 500 100 mls @ 100 mls/hr 06/11/18 22:00 06/12/18 10:57 mg/ Sodium Chloride IVPB 100 mls/hr BID JAKUB Administration Protocol Norepinephrine Bitartrate 8, 500 mls @ 18.75 mls/hr 06/12/18 06:30 06/12/18 07:08 000 mcg/ Dextrose IV 5 mcg/min TITR JAKUB 18.75 mls/hr Administration Protocol 5 MCG/MIN Famotidine/Sodium Chloride 20 mg in 50 mls @ 100 mls/hr 06/12/18 10:00 09:01 Pepcid 20 Mg Premixed Ivpb - IVPB 100 mls/hr DAILY JAKUB Administration Metronidazole 500 mg in 100 mls @ 100 mls/hr 06/12/18 10:00 06/12/18 11:13 Flagyl 500mg Premixed Ivpb - IVPB 100 mls/hr Q8H-IV JAKUB Administration Metoprolol Tartrate 25 mg 06/11/18 22:00 06/12/18 11:01 Lopressor - PO Not Given BID JAKUB Mupirocin 1 applic 06/11/18 22:00 06/12/18 10:56 Bactroban Ointment (For Decolonization) - NS 06/16/18 21:59 1 applic BID JAKUB Administration ASSESSMENT/PLAN: Patient is an 82 year old female who presented with shortness of breath and abdominal pain and was found to be in Severe sepsis. Imaging and labs done and revealed ascending cholangitis. Patient was planned to have IR Guided cholecystostomy but was found to have severe thrombocytopenia. We were consulted for further monitoring and management. Problem List: Abdominal pain Acute cholecystitis Ascending cholangitis Thrombocytopenia in the setting of Anticoagulation Shortness of breath Anal cancer s/p chemo radiation A fib with RVR on eliquis Diastolic CHF shortness of breath chronic interstitial lung disease on home o2 PRN Plan: -Differential Diagnosis and risk factors for thrombocytopenia may include but not limited to HIT, Medication side effects, Infections and CHF exacerbation. -Plans to have IR guided cholecystostomy, however platelets around 17 -Continue to transfuse monodonor platelets and recommend platelets > 50 and INR < 1.5. Due to sepsis would ideally want platelets 80-100 -continue to trend CBC for platelet count -continue to hold eliquis in the setting of thrombocytopenia -rest of management per primary medical team Dispo: We will continue to follow the patient. Thank you for this consultative opportunity. Visit type - Emergency Visit Emergency Visit: Yes ED Registration Date: 06/11/18 Care time: The patient presented to the Emergency Department on the above date and was hospitalized for further evaluation of their emergent condition. - New Patient This patient is new to me today: Yes Date on this admission: 06/11/18 - Critical Care Critical Care patient: Yes Total Critical Care Time (in minutes): 45 Critical Care Statement: The care of this patient involved high complexity decision making to prevent further life threatening deterioration of the patient 's condition and/or to evaluate & treat vital organ system(s) failure or risk of failure.
--- NOTE | 2018-06-12 14:24 | CON.ID ---
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 History of Recent Travel: No Home Medications - Allergies Allergies/Adverse Reactions: Allergies Allergy/AdvReac Type Severity Reaction Status Date / Time Sulfa (Sulfonamide Allergy Unknown Verified 06/11/18 11:15 Antibiotics) - Home Medications Home Medications: Ambulatory Orders Alprazolam [Xanax] 0.25 mg PO BID MDD 0.75 10/18/17 Ondansetron [Zofran *Odt*] 8 mg PO Q8H PRN 12/31/17 Megestrol Acetate Oral Susp [Megace Oral Suspension -] 400 mg PO DAILY 30 Days # 1 cup 01/05/18 Furosemide [Lasix -] 20 mg PO DAILY #7 tablet 02/22/18 Albuterol 0.083% Nebulizer Ela [Ventolin 0.083% Nebulizer Soln -] 1 vial NEB Q6H 05/08/18 Docusate Sodium [Colace -] 100 mg PO TID #90 capsule 05/13/18 Metoprolol Tartrate [Lopressor -] 25 mg PO BID #60 tablet 05/16/18 predniSONE [Deltasone -] 20 mg PO TID 06/11/18 Family Disease History - Family Disease History Family Disease History: CA: Father (leukemia), Sister (breast cancer), Other: Mother (alzheimer) Physical Exam Vital Signs: Vital Signs Temperature 96.0 F L 06/12/18 12:00 Pulse Rate 114 H 06/12/18 12:00 Respiratory Rate 30 H 06/12/18 12:00 Blood Pressure 102/63 06/12/18 12:00 O2 Sat by Pulse Oximetry (%) 95 06/12/18 09:00 Labs: CBC, BMP 06/12/18 05:30 06/12/18 05:30
--- NOTE | 2018-06-12 15:09 | PN ---
Progress Note (short form) - Note Progress Note: Discussed with family and pt that patient can be intubated temporarily for a specific treatment. However, if the intubation would be for a termination clerk or end of life reason, they would like DNR/ DNI to stand.
[2018-06-12] MEDS ORDERED: KETAMINE HCL 200 MG/20 ML VIAL IVPUSH ONE (15:45)
[2018-06-12] MEDS ORDERED: ETOMIDATE 40 MG/20 ML VIAL IVPUSH ONE (15:46)
[2018-06-12] MEDS ORDERED: ETOMIDATE 20 MG/10 ML AMPUL IVPUSH ONE (15:50)
[2018-06-12] MEDS ORDERED: RAPID SEQUENCE INTUBATION KIT NR ONE (15:52)
[2018-06-12] MEDS ORDERED: KETAMINE HCL 500 MG/10 ML VIAL IV ONE (16:00)
[2018-06-12] MEDS ORDERED: SODIUM CHLORIDE 500 ML IV STA (16:14)
--- NOTE | 2018-06-12 16:15 | PROC ---
<Suyapa Beaulieu - Last Filed: 06/12/18 16:11> Intubation - Intubation Reason for Intubation: Respiratory Insufficiency, Airway Protection Time of Intubation: 16:00 Intubation Method: orotracheal Blade used: Mac Tube Size (cm): 7.5 Tube position @ lip (cm): 22 Tube position confirmed by: Direct visualization, CO2 detector, Chest x-ray, Breath sounds Breath Sounds after Intubation: equal Post Intubation Xray: Yes (pending CXR) Remarks: Intubation under supervision of Dr. Parry w/ 7.5cm tube and 3 mac blade via direct visualization Etomidate 20 used 22cm at the lip capnography, auscultation confirmed placement pending CXR confirmation <Pb Parry MD - Last Filed: 06/12/18 18:42> Procedure Note Procedure: I supervised and was present during the entire procedure. Pb Parry MD
[2018-06-12 16:23] LABS: HEMOGLOBIN 11.2 GM/dL (10.7-15.3); MCH 38.1 pg (25.7-33.7); MCHC 33.1 g/dl (32.0-36.0); MEAN CELL VOLUME 115.1 fl (80-96); MEAN PLT VOLUME 8.1 fl (7.5-11.1); PLATELET COUNT 96 K/MM3 (134-434); RBC 2.95 M/mm3 (3.60-5.2); RDW 18.8 % (11.6-15.6)
[2018-06-12] MEDS ORDERED: LACTATED RINGERS SOLUTION 1,000 ML/1,000 ML INFUS.BAG IV SCH (16:30)
[2018-06-12] MEDS ORDERED: MIDAZOLAM 100 MG in SODIUM CHLORIDE 100 ML IVPB SCH (16:30)
[2018-06-12] MEDS ORDERED: MIDAZOLAM 100 MG/100 ML MG IVPB ONE (16:32)
[2018-06-12 16:35] LABS: INR 1.84 (0.83-1.09); PROTHROMBIN TIME (PATIENT) 21.9 SEC (9.7-13.0)
--- NOTE | 2018-06-12 16:37 | CONSULT ---
Consult Consult Specialty:: general surgery Reason for Consultation:: cholecystitis - History of Present Illness Chief Complaint: abdominal pain History of Present Illness: 82 yo female PMH Afib, HTN, Anal CA, and CHF, who presents to the emergency department today complaining of SOB and a progressively worsening cough for 2 days. Patient notes that she struggles to walk because she feels weak. She states she has a progressively worsening cough and reports associated SOB. Patient lives at home and denies any sick contacts or fever. work up included CT chest/ abd/ pelvis that showed interval development of pericholecystic fluid and peripancreatic edema. She was admitted to the ED for management and we were called regading these findings. we were called to assess. - History Source History Provided By: Patient, Family Member, Medical Record Limitations to Obtaining History: No Limitations - Past Medical History Cardio/Vascular: Yes: HTN Gastrointestinal: Yes: Diverticulosis, GI Bleed Renal/: Yes: Hematuria Psych: Yes: Anxiety Rheumatology: Yes: Fibromyalgia - Past Surgical History Past Surgical History: Yes: Colectomy, Hysterectomy, Joint Replacement (right knee) - Alcohol/Substance Use Hx Alcohol Use: No History of Substance Use: reports: None - Smoking History Smoking history: Never smoked Have you smoked in the past 12 months: No - Social History Usual Living Arrangement: Alone ADL: Independent 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 History of Recent Travel: No Home Medications - Allergies Allergies/Adverse Reactions: Allergies Allergy/AdvReac Type Severity Reaction Status Date / Time Sulfa (Sulfonamide Allergy Unknown Verified 06/11/18 11:15 Antibiotics) - Home Medications Home Medications: Ambulatory Orders Alprazolam [Xanax] 0.25 mg PO BID MDD 0.75 10/18/17 Ondansetron [Zofran *Odt*] 8 mg PO Q8H PRN 12/31/17 Megestrol Acetate Oral Susp [Megace Oral Suspension -] 400 mg PO DAILY 30 Days # 1 cup 01/05/18 Furosemide [Lasix -] 20 mg PO DAILY #7 tablet 02/22/18 Albuterol 0.083% Nebulizer Ela [Ventolin 0.083% Nebulizer Soln -] 1 vial NEB Q6H 05/08/18 Docusate Sodium [Colace -] 100 mg PO TID #90 capsule 05/13/18 Metoprolol Tartrate [Lopressor -] 25 mg PO BID #60 tablet 05/16/18 predniSONE [Deltasone -] 20 mg PO TID 06/11/18 Family Disease History - Family Disease History Family Disease History: CA: Father (leukemia), Sister (breast cancer), Other: Mother (alzheimer) Review of Systems - Review of Systems Constitutional: reports: Fever. denies: Chills Eyes: denies: Blurred Vision, Recent Change in Vision HENT: denies: Difficult Swallowing, Throat Pain Neck: reports: Pain on Movement. denies: Tenderness Cardiovascular: denies: Chest Pain, Palpitations Respiratory: denies: Cough, SOB Gastrointestinal: reports: Abdominal Pain. denies: Constipation, Diarrhea Genitourinary: denies: Burning, Urgency Breasts: reports: No Symptoms Reported. denies: Pain Musculoskeletal: denies: Decreased ROM, Muscle Cramps, Muscle Weakness Integumentary: denies: Rash Neurological: denies: Seizure, Syncope Endocrine: denies: Unexplained Weight Gain, Unexplained Weight Loss Hematology/Lymphatic: denies: Easily Bruised, Excessive Bleeding Psychiatric: denies: Anxiety, Depression Physical Exam Vital Signs: Vital Signs Temperature 97.8 F 06/12/18 14:00 Pulse Rate 117 H 06/12/18 16:24 Respiratory Rate 20 06/12/18 16:24 Blood Pressure 92/81 06/12/18 14:00 O2 Sat by Pulse Oximetry (%) 97 06/12/18 16:24 Vital Signs Period Temp Pulse Resp BP Sys/Rao Pulse Ox Last 24 Hr 96.0 F-98 F 114-132 16-30 79-116/54-84 95-97 Intake & Output 06/12/18 06/12/18 06/12/18 07:59 15:59 23:59 Intake Total 375 1906 Output Total 20 Balance 375 1886 Weight 149 lb 3.2 oz Intake: IV 375 150 LACTATED RINGERS SOLUTION 375 150 1,000 ml In 1,000 ml @ 75 mls/hr IV ASDIR JAKUB Rx #:[id number] IVPB 350 Fresh Frozen Plasma 893 Platelets 513 Output: Urine 20 Magana 20 Other: Voiding Method Diaper Bowel Movement 0 Height 5 ft 6 in Body Mass Index (BMI) 24.0 Constitutional: Yes: No Distress, Calm, Thin Eyes: Yes: Conjunctiva Clear, EOM Intact HENT: Yes: Atraumatic, Normocephalic Neck: Yes: Supple, Trachea Midline Cardiovascular: Yes: Tachycardia, S1, S2 Respiratory: Yes: Regular, Diminished, Mechanically Ventilated Gastrointestinal: Yes: Normal Bowel Sounds, Soft, Palpable Mass, Other ( cholecystostomy RUQ). No: Abdomen, Obese, Ascites, Pulsatile Mass, Tenderness, Tenderness, Epigastrium, Tenderness, Rebound ...Rectal Exam: Yes: Deferred Renal/: No: CVA Tenderness - Left, CVA Tenderness - Right Breast(s): No: Nipple Inversion, Skin Changes Extremities: No: Cool, Cyanosis Edema: No Peripheral Pulses WNL: Yes Integumentary: No: Jaundice, Rash Wound/Incision: Yes: Clean/Dry, Well Approximated Neurological: No: Alert, Oriented Psychiatric: No: Alert, Oriented Labs: CBC, BMP 06/12/18 15:35 Imaging - Results Cat Scan: Report Reviewed, Image Reviewed Problem List - Problems (1) Cholecystitis Assessment/Plan: 82yo with MMP these diagnostic imaging findings may be consistent with acute cholecystitis, but given her current comorbidities the risk of mortality with surgical intervention is prohibitive. ICU admission and stabilization NPO and IVF hydration Broad spectrum IV antibiotics correct coagulopathy IR for cholecystostomy This patient is critically ill. Time spent reviewing chart, examining patient, talking with providers and/or family and documentation is 45 minutes. Thank you for the opportunity to participate in the care of this patient. Code(s): K81.9 - CHOLECYSTITIS, UNSPECIFIED (2) Atrial fibrillation with rapid ventricular response Code(s): I48.91 - UNSPECIFIED ATRIAL FIBRILLATION (3) Diastolic CHF, acute on chronic Code(s): I50.33 - ACUTE ON CHRONIC DIASTOLIC (CONGESTIVE) HEART FAILURE (4) Supratherapeutic INR Code(s): R79.1 - ABNORMAL COAGULATION PROFILE (5) CHF (congestive heart failure) Code(s): I50.9 - HEART FAILURE, UNSPECIFIED (6) Pulmonary congestion Code(s): R09.89 - OTH SYMPTOMS AND SIGNS INVOLVING THE CIRC AND RESP SYSTEMS
[2018-06-12 16:38] LABS: ACTIVATED PTT 25.8 SECONDS (25.2-36.5)
[2018-06-12 16:39] LABS: N-TERMINAL BNP 10354.7 pg/ml (5-450)
--- NOTE | 2018-06-12 16:48 | PN ---
Progress Note, Physician - Current Medication List Current Medications: Active Medications Albuterol/Ipratropium (Duoneb -) 1 amp NEB Q6H PRN PRN Reason: SHORTNESS OF BREATH Alprazolam (Xanax -) 0.25 mg PO BID JAKUB Last Admin: 06/12/18 11:02 Dose: Not Given Chlorhexidine Gluconate (Hibiclens For Decolonization -) 1 applic TP HS JAKUB Last Admin: 06/11/18 23:13 Dose: 1 applic Docusate Sodium (Colace -) 100 mg PO TID JAKUB Last Admin: 06/12/18 16:16 Dose: Not Given Hydrocortisone Sodium Succinate (Solu-Cortef -) 50 mg IVPB Q6H-IV JAKUB Last Admin: 06/12/18 11:13 Dose: 50 mg Lactated Ringer's (Lactated Ringers Solution) 1,000 ml in 1,000 mls @ 75 mls/ hr IV ASDIR JAKUB Last Admin: 06/11/18 17:50 Dose: 75 mls/hr Imipenem/Cilastatin Sodium 500 (mg/ Sodium Chloride) 100 mls @ 100 mls/hr IVPB BID JAKUB; Protocol Last Admin: 06/12/18 10:57 Dose: 100 mls/hr Norepinephrine Bitartrate 8, (000 mcg/ Dextrose) 500 mls @ 18.75 mls/hr IV TITR JAKUB; Protocol Last Admin: 06/12/18 07:08 Dose: 5 mcg/min, 18.75 mls/hr Famotidine/Sodium Chloride (Pepcid 20 Mg Premixed Ivpb -) 20 mg in 50 mls @ 100 mls/hr IVPB DAILY JAKUB Last Admin: 06/12/18 09:01 Dose: 100 mls/hr Metronidazole (Flagyl 500mg Premixed Ivpb -) 500 mg in 100 mls @ 100 mls/hr IVPB Q8H-IV JAKUB Last Admin: 06/12/18 11:13 Dose: 100 mls/hr Midazolam HCl 100 mg/ Sodium (Chloride) 100 mls @ 1 mls/hr IVPB TITR JAKUB; Protocol Lactated Ringer's (Lactated Ringers Solution) 1,000 ml in 1,000 mls @ 500 mls/ hr IV ASDIR JAKUB Stop: 06/12/18 18:29 Metoprolol Tartrate (Lopressor -) 25 mg PO BID JAKUB Last Admin: 06/12/18 11:01 Dose: Not Given Mupirocin (Bactroban Ointment (For Decolonization) -) 1 applic NS BID [facility] Stop: 06/16/18 21:59 Last Admin: 06/12/18 10:56 Dose: 1 applic - Objective Vital Signs: Vital Signs Temperature 97.8 F 06/12/18 14:00 Pulse Rate 117 H 06/12/18 16:24 Respiratory Rate 20 06/12/18 16:24 Blood Pressure 92/81 06/12/18 14:00 O2 Sat by Pulse Oximetry (%) 97 06/12/18 16:24 Constitutional: Yes: No Distress HENT: Yes: Atraumatic Neck: Yes: Supple Cardiovascular: Yes: Regular Rate and Rhythm Respiratory: Yes: Rhonchi Gastrointestinal: Yes: Normal Bowel Sounds Extremities: Yes: WNL Edema: No Peripheral Pulses WNL: Yes Neurological: Yes: Alert, Oriented Labs: CBC, BMP 06/12/18 15:35 INR, PTT INR 1.84 (0.83-1.09) H 06/12/18 15:35 Fibrinogen 397.0 mg/dL (238-498) 06/12/18 06:30 Problem List - Problems (1) Severe sepsis Assessment/Plan: on ivabx ivf pressors if needed Code(s): A41.9 - SEPSIS, UNSPECIFIED ORGANISM; R65.20 - SEVERE SEPSIS WITHOUT SEPTIC SHOCK (2) Atrial fibrillation Code(s): I48.91 - UNSPECIFIED ATRIAL FIBRILLATION Qualifiers: Atrial fibrillation type: unspecified Qualified Code(s): I48.91 - Unspecified atrial fibrillation (3) CHF (congestive heart failure) Code(s): I50.9 - HEART FAILURE, UNSPECIFIED (4) Thrombocytopenia Assessment/Plan: monitor will give platelets if needed Code(s): D69.6 - THROMBOCYTOPENIA, UNSPECIFIED (5) Acute renal disease Code(s): N28.9 - DISORDER OF KIDNEY AND URETER, UNSPECIFIED (6) Elevated LFTs Code(s): R94.5 - ABNORMAL RESULTS OF LIVER FUNCTION STUDIES (7) Supratherapeutic INR Code(s): R79.1 - ABNORMAL COAGULATION PROFILE Assessment/Plan cc time 35 min
[2018-06-12 17:01] LABS: ARTERIAL BLD GAS O2 SATURATION 97.2 % (90-98.9); ARTERIAL BLOOD GAS PCO2 32.5 mmHg (35-45)
[2018-06-12 17:07] LABS: ALBUMIN 3.4 g/dl (3.4-5.0); ALK PHOS 107 U/L (45-117); ANION GAP 22 MMOL/L (8-16); BILIRUBIN,TOTAL 5.8 mg/dL (0.2-1); BLOOD UREA NITROGEN 61 mg/dL (7-18); CALCIUM 7.8 mg/dL (8.5-10.1); CHLORIDE 101 mmol/L (98-107); CO2 15 mmol/L (21-32); CREATININE 2.4 mg/dL (0.55-1.3); GLUCOSE,RANDOM 98 mg/dL (74-106); POTASSIUM 4.9 mmol/L (3.5-5.1); SODIUM 138 mmol/L (136-145); TOT PROT 6.1 g/dl (6.4-8.2)
[2018-06-12 17:09] LABS: ALLENS TEST POSITIVE
[2018-06-12 17:11] LABS: ARTERIAL BLOOD GAS BASE EXCESS -14.6 meq/l (-2-2)
[2018-06-12] MEDS ORDERED: LIDOCAINE HCL 1%, 10 MG/ML (20ML VIAL) ONE (17:52)
[2018-06-12] MEDS ORDERED: VASOPRESSIN 50 UNITS in SODIUM CHLORIDE 97.5 ML IVPB SCH (18:30)
[2018-06-12] MEDS: LACTATED RINGERS SOLUTION 1,000 ML/1,000 ML INFUS.BAG IV SCH (18:34)
[2018-06-12] MEDS ORDERED: VASOPRESSIN 20 UNITS/ML VIAL IV ONE (18:41)
[2018-06-12 19:31] LABS: SGOT/AST 4820 U/L (15-37); SGPT/ALT 5320 U/L (13-61)
--- NOTE | 2018-06-12 20:12 | CON.GI ---
Consult Consult Specialty:: GI Referred by:: Dr Vargas - History of Present Illness History of Present Illness: 82 y/o F with PMH odf anal cancer s/p radiation and chemotherapy was adnitted because of SOB and abdominal pain. CT was done which revelaed acute cholecytitis. The CBD was normal. 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 History of Recent Travel: No Home Medications - Allergies Allergies/Adverse Reactions: Allergies Allergy/AdvReac Type Severity Reaction Status Date / Time Sulfa (Sulfonamide Allergy Unknown Verified 06/11/18 11:15 Antibiotics) - Home Medications Home Medications: Ambulatory Orders Alprazolam [Xanax] 0.25 mg PO BID MDD 0.75 10/18/17 Ondansetron [Zofran *Odt*] 8 mg PO Q8H PRN 12/31/17 Megestrol Acetate Oral Susp [Megace Oral Suspension -] 400 mg PO DAILY 30 Days # 1 cup 01/05/18 Furosemide [Lasix -] 20 mg PO DAILY #7 tablet 02/22/18 Albuterol 0.083% Nebulizer Ela [Ventolin 0.083% Nebulizer Soln -] 1 vial NEB Q6H 05/08/18 Docusate Sodium [Colace -] 100 mg PO TID #90 capsule 05/13/18 Metoprolol Tartrate [Lopressor -] 25 mg PO BID #60 tablet 05/16/18 predniSONE [Deltasone -] 20 mg PO TID 06/11/18 Family Disease History - Family Disease History Family Disease History: CA: Father (leukemia), Sister (breast cancer), Other: Mother (alzheimer) Physical Exam-GI Vital Signs: Vital Signs Temperature 96.6 F L 06/12/18 16:00 Pulse Rate 125 H 06/12/18 18:53 Respiratory Rate 22 H 06/12/18 18:44 Blood Pressure 102/57 L 06/12/18 18:53 O2 Sat by Pulse Oximetry (%) 97 06/12/18 16:24 Constitutional: Yes: Well Nourished, Other (intububated on a vent) Eyes: Yes: Conjunctiva Clear HENT: Yes: Atraumatic Neck: Yes: Supple Cardiovascular: Yes: Pulse Irregular Respiratory: Yes: Diminished Gastrointestinal Inspection: Yes: Other (cholecystostomy site was bloody, Dr Laguerre was informed, darke green bile in the drainage bag was found.) ...Palpate: Yes: Soft. No: Firm/Rigid, Guarding, Hepatomegaly, Mass, Pulsatile Mass, Splenomegaly, Tenderness Labs: CBC, BMP 06/12/18 15:35 06/12/18 15:35 INR, PTT INR 1.84 (0.83-1.09) H 06/12/18 15:35 Fibrinogen 397.0 mg/dL (238-498) 06/12/18 06:30 Imaging - Results Cat Scan: Report Reviewed Ultrasound: Report Reviewed Assessment/Plan 1)Septic shock secondary to cholecystitis doubt cholangitis in the absence of CBD dilation R> continue antibiotics consider to transfuse 2 units FFP and 1 unit of platelet, d/w Dr Laguerre 2)Ischemic hepatitis--expect SGOT and SGP to normalize and Total bilirubin to increase R> trend LFTS Keep well hydrated
--- NOTE | 2018-06-12 20:35 | PN ---
Teaching Attending Note Name of Resident: Earline Carney ATTENDING PHYSICIAN STATEMENT I saw and evaluated the patient. I reviewed the resident's note and discussed the case with the resident. I agree with the resident's findings and plan as documented. ASSESSMENT AND PLAN: Patient is an 82 year old female with h/o anal cancer s/p 5-FU/mitomycin/RT who presented with shortness of breath and abdominal pain and was found to be in Severe sepsis. Imaging and labs done and revealed ascending cholangitis. Patient was found to have ascending cholangitis. Septic shock thrombocytopenia coagulopathy transfusing monodonor platelets/FFP s/p percutaneous cholecystiostomy acute resp. failure poor overall prognosis
[2018-06-12] MEDS ORDERED: PT OWN MED DRAWER 7, Y5N ONE (20:52)
[2018-06-12] MEDS: CHLORHEXIDINE GLUCONATE 4% CLEANSER FOR DECOLONIZATION TP SCH (21:15)
[2018-06-13] MEDS ORDERED: METOPROLOL TARTRATE 5 MG/5 ML VIAL IVPUSH ONE (00:19)
[2018-06-13] MEDS ORDERED: ESMOLOL 2500 MG/250 ML 2,500,000 MCG/250 ML INFUS.BAG IVPB ONE (01:54)
[2018-06-13] MEDS ORDERED: ESMOLOL 2500 MG/250 ML 2,500,000 MCG/250 ML INFUS.BAG IVPB SCH (02:00)
[2018-06-13] MEDS ORDERED: NOREPINEPHRINE BITARTRATE 4 MG/4 ML ML IV ONE (02:53)
[2018-06-13] MEDS: HYDROCORTISONE SOD SUCCINATE 100 MG/2 ML VIAL IVPB SCH ×3 (02:57→15:20)
[2018-06-13 03:18] LABS: HEP.C VIRUS AB 0.2 s/co ratio (0.0-0.9)
[2018-06-13 05:52] LABS: BASO % 0.2 % (0-2.0); EOS % 7.6 % (0-4.5); LYMPH % 0.8 % (8-40); MCH 36.1 pg (25.7-33.7); MCHC 30.3 g/dl (32.0-36.0); MEAN CELL VOLUME 119.1 fl (80-96); MEAN PLT VOLUME 9.4 fl (7.5-11.1); MONO % 2.9 % (3.8-10.2); NEUT % 88.5 % (42.8-82.8); RBC 2.77 M/mm3 (3.60-5.2); RDW 19.4 % (11.6-15.6); WHITE BLOOD COUNT 9.8 K/mm3 (4.0-10.0)
[2018-06-13 06:19] LABS: PLATELET COUNT 30 K/MM3 (134-434)
[2018-06-13 06:21] LABS: ALBUMIN 2.6 g/dl (3.4-5.0); ALK PHOS 110 U/L (45-117); ANION GAP 20 MMOL/L (8-16); BILIRUBIN,TOTAL 6.4 mg/dL (0.2-1); BLOOD UREA NITROGEN 55 mg/dL (7-18); CHLORIDE 98 mmol/L (98-107); CO2 14 mmol/L (21-32); CREATININE 2.5 mg/dL (0.55-1.3); GLUCOSE,RANDOM 267 mg/dL (74-106); PHOSPHOROUS 7.6 mg/dL (2.5-4.9); POTASSIUM 4.9 mmol/L (3.5-5.1); SGOT/AST 3230 U/L (15-37); SGPT/ALT 3846 U/L (13-61); SODIUM 131 mmol/L (136-145)
[2018-06-13 06:22] LABS: CALCIUM 6.6 mg/dL (8.5-10.1)
[2018-06-13] MEDS: DOCUSATE SODIUM 100 MG CAPSULE (FP) PO SCH (06:42)
[2018-06-13] MEDS: NOREPINEPHRINE BITARTRATE 8,000 MCG in DEXTROSE 5%-WATER - 492 ML IV SCH (06:48)
[2018-06-13 06:58] LABS: ARTERIAL BLD GAS O2 SATURATION 98.6 % (90-98.9); ARTERIAL BLOOD GAS PCO2 31.6 mmHg (35-45)
[2018-06-13 07:11] LABS: ARTERIAL BLOOD GAS pH 7.15 (7.35-7.45)
[2018-06-13] MEDS ORDERED: SODIUM BICARBONATE 8.4% - 150 MEQ in DEXTROSE 5%-WATER - 1,000 ML IV SCH (08:15)
[2018-06-13] MEDS ORDERED: PT OWN MED DRAWER 7, Y5N ONE ×2 (08:22→10:34)
[2018-06-13] MEDS ORDERED: LACTATED RINGERS SOLUTION 1000 ML INFUS.BAG IV ONE (08:25)
--- NOTE | 2018-06-13 08:37 | PN ---
Physical Exam: SUBJECTIVE: Patient seen and examined Overnight patient tachycardic to 140s but hypotensive 5 IVP of lopressor without effect esmolol gtt started d/c'ed in AM cards rec digoxin or amio, however pt with anuria and pulm congestion and infiltrates Case discussed with cards, plan to start digoxin patient on versed, levophed and vasopressin drips this AM started on digoxin for tachycardiad rhytm started on Na bicarb for metabolic acidosis OBJECTIVE: Vital Signs Period Temp Pulse Resp BP Sys/Rao Pulse Ox Last 24 Hr 96.0 F-97.8 F 114-157 17-30 71-126/55-106 95-98 GENERAL: The patient is arousable to name, intubated, sedated HEAD: Normal with no signs of trauma. EYES: PERRLA, extraocular movements intact, sclera anicteric, conjunctiva clear. No ptosis. ENT: moist mucous membranes. NECK: Trachea midline LUNGS: moist crackles on auscultation bilaterally, breath sounds with expiratory wheeze bilaterally, no accessory muscle use. HEART: Regular rate and rhythm, S1, S2 without murmur, rub or gallop. ABDOMEN: Soft, nontender to palpation, nondistended, normoactive bowel sounds, no guarding, no rebound, no hepatosplenomegaly, no masses. EXTREMITIES: 2+ pulses, warm, well-perfused, no edema. NEUROLOGICAL: intubated and sedated SKIN: Warm, dry, normal turgor, no rashes or lesions noted Laboratory Results - last 24 hr 06/12/18 06/12/18 06/12/18 05:30 05:30 07:40 WBC RBC Hgb Hct MCV MCH MCHC RDW Plt Count MPV Absolute Neuts (auto) Neutrophils % Neutrophils % (Manual) No Result Required. Lymphocytes % Monocytes % Eosinophils % Basophils % Nucleated RBC % PT with INR INR PTT (Actin FS) Puncture Site ABG pH ABG pCO2 at Pt Temp ABG pO2 at Pt Temp ABG HCO3 ABG O2 Sat (Measured) ABG O2 Content ABG Base Excess John Test O2 Delivery Device Oxygen Flow Rate Vent Mode Vent Rate Mechanical Rate PEEP Pressure Support Vent Sodium 141 Potassium 5.1 Chloride 105 Carbon Dioxide 16 L Anion Gap 20 H BUN 60 H Creatinine 2.3 H Creat Clearance w eGFR 20.40 POC Glucometer Random Glucose 31 L* Lactic Acid Calcium 7.7 L Phosphorus 7.6 H Magnesium 2.2 Total Bilirubin 5.5 H Direct Bilirubin 4.1 H AST 7508 H ALT 7035 H Alkaline Phosphatase 90 Troponin I 0.09 H B-Natriuretic Peptide 17555.5 H Total Protein 5.2 L Albumin 2.6 L Total Amylase 68 Lipase 128 Random Vancomycin < 0.8 L Hepatitis A IgM Ab Hep Bs Antigen Hep B Core IgM Ab Hepatitis C Antibody Blood Type Antibody Screen 06/12/18 06/12/18 06/12/18 08:08 08:10 09:55 WBC RBC Hgb Hct MCV MCH MCHC RDW Plt Count MPV Absolute Neuts (auto) Neutrophils % Neutrophils % (Manual) Lymphocytes % Monocytes % Eosinophils % Basophils % Nucleated RBC % PT with INR INR PTT (Actin FS) Puncture Site Left radial ABG pH 7.24 L* ABG pCO2 at Pt Temp 29.3 L ABG pO2 at Pt Temp 101.0 H ABG HCO3 12.2 L* ABG O2 Sat (Measured) 95.8 ABG O2 Content 15.9 ABG Base Excess -13.7 L* John Test Positive O2 Delivery Device Nasal Oxygen Flow Rate Yes Vent Mode Vent Rate Mechanical Rate PEEP Pressure Support Vent Sodium Potassium Chloride Carbon Dioxide Anion Gap BUN Creatinine Creat Clearance w eGFR POC Glucometer Random Glucose Lactic Acid Calcium Phosphorus Magnesium Total Bilirubin Direct Bilirubin AST ALT Alkaline Phosphatase Troponin I B-Natriuretic Peptide Total Protein Albumin Total Amylase Lipase Random Vancomycin Hepatitis A IgM Ab Negative Hep Bs Antigen Negative Hep B Core IgM Ab Negative Hepatitis C Antibody 0.2 Blood Type O POSITIVE Antibody Screen Negative 06/12/18 06/12/18 06/12/18 10:32 15:35 15:35 WBC 8.0 RBC 2.95 L Hgb 11.2 Hct 34.0 MCV 115.1 H MCH 38.1 H MCHC 33.1 RDW 18.8 H Plt Count 96 L D MPV 8.1 D Absolute Neuts (auto) Neutrophils % Neutrophils % (Manual) Lymphocytes % Monocytes % Eosinophils % Basophils % Nucleated RBC % PT with INR INR PTT (Actin FS) Puncture Site ABG pH ABG pCO2 at Pt Temp ABG pO2 at Pt Temp ABG HCO3 ABG O2 Sat (Measured) ABG O2 Content ABG Base Excess John Test O2 Delivery Device Oxygen Flow Rate Vent Mode Vent Rate Mechanical Rate PEEP Pressure Support Vent Sodium 138 Potassium 4.9 Chloride 101 Carbon Dioxide 15 L Anion Gap 22 H BUN 61 H Creatinine 2.4 H Creat Clearance w eGFR 19.42 POC Glucometer [phone] Random Glucose 98 Lactic Acid Calcium 7.8 L Phosphorus Magnesium Total Bilirubin 5.8 H Direct Bilirubin AST 4820 H ALT 5320 H Alkaline Phosphatase 107 Troponin I 0.06 H B-Natriuretic Peptide Total Protein 6.1 L Albumin 3.4 Total Amylase Lipase Random Vancomycin Hepatitis A IgM Ab Hep Bs Antigen Hep B Core IgM Ab Hepatitis C Antibody Blood Type Antibody Screen 06/12/18 06/12/18 06/12/18 15:35 15:35 15:35 WBC RBC Hgb Hct MCV MCH MCHC RDW Plt Count MPV Absolute Neuts (auto) Neutrophils % Neutrophils % (Manual) Lymphocytes % Monocytes % Eosinophils % Basophils % Nucleated RBC % PT with INR 21.90 H INR 1.84 H PTT (Actin FS) 25.8 Puncture Site ABG pH ABG pCO2 at Pt Temp ABG pO2 at Pt Temp ABG HCO3 ABG O2 Sat (Measured) ABG O2 Content ABG Base Excess John Test O2 Delivery Device Oxygen Flow Rate Vent Mode Vent Rate Mechanical Rate PEEP Pressure Support Vent Sodium Potassium Chloride Carbon Dioxide Anion Gap BUN Creatinine Creat Clearance w eGFR POC Glucometer Random Glucose Lactic Acid 10.0 H* Calcium Phosphorus Magnesium Total Bilirubin Direct Bilirubin AST ALT Alkaline Phosphatase Troponin I B-Natriuretic Peptide 15336.7 H Total Protein Albumin Total Amylase Lipase 283 Random Vancomycin Hepatitis A IgM Ab Hep Bs Antigen Hep B Core IgM Ab Hepatitis C Antibody Blood Type Antibody Screen 06/12/18 06/12/18 06/13/18 16:40 17:34 05:00 WBC 9.8 RBC 2.77 L Hgb 10.0 L Hct 33.0 MCV 119.1 H MCH 36.1 H MCHC 30.3 L RDW 19.4 H Plt Count 30 L* D MPV 9.4 D Absolute Neuts (auto) 8.7 H Neutrophils % 88.5 H Neutrophils % (Manual) Lymphocytes % 0.8 L Monocytes % 2.9 L Eosinophils % 7.6 H Basophils % 0.2 Nucleated RBC % 3 H PT with INR INR PTT (Actin FS) Puncture Site Left radial ABG pH 7.20 L* ABG pCO2 at Pt Temp 32.5 L ABG pO2 at Pt Temp 124.0 H D ABG HCO3 12.1 L* ABG O2 Sat (Measured) 97.2 ABG O2 Content 14.1 L ABG Base Excess -14.6 L* John Test Positive O2 Delivery Device Other Oxygen Flow Rate 50% Vent Mode A/c Vent Rate 14 Mechanical Rate Esput PEEP 5.0 Pressure Support Vent 450 Sodium Potassium Chloride Carbon Dioxide Anion Gap BUN Creatinine Creat Clearance w eGFR POC Glucometer 95.81642 Random Glucose Lactic Acid Calcium Phosphorus Magnesium Total Bilirubin Direct Bilirubin AST ALT Alkaline Phosphatase Troponin I B-Natriuretic Peptide Total Protein Albumin Total Amylase Lipase Random Vancomycin Hepatitis A IgM Ab Hep Bs Antigen Hep B Core IgM Ab Hepatitis C Antibody Blood Type Antibody Screen 06/13/18 06/13/18 05:00 06:30 WBC RBC Hgb Hct MCV MCH MCHC RDW Plt Count MPV Absolute Neuts (auto) Neutrophils % Neutrophils % (Manual) Lymphocytes % Monocytes % Eosinophils % Basophils % Nucleated RBC % PT with INR INR PTT (Actin FS) Puncture Site Md puncture ABG pH 7.15 L* ABG pCO2 at Pt Temp 31.6 L ABG pO2 at Pt Temp 152.0 H* D ABG HCO3 10.5 L* ABG O2 Sat (Measured) 98.6 ABG O2 Content 14.1 L ABG Base Excess -17.0 L* John Test Not applicable O2 Delivery Device Vent Oxygen Flow Rate 50% Vent Mode A/c Vent Rate 14 Mechanical Rate Yes PEEP Pressure Support Vent 450 Sodium 131 L Potassium 4.9 Chloride 98 Carbon Dioxide 14 L Anion Gap 20 H BUN 55 H Creatinine 2.5 H Creat Clearance w eGFR 18.53 POC Glucometer Random Glucose 267 H Lactic Acid Calcium 6.6 L* Phosphorus 7.6 H Magnesium 2.0 Total Bilirubin 6.4 H Direct Bilirubin AST 3230 H ALT 3846 H Alkaline Phosphatase 110 Troponin I B-Natriuretic Peptide Total Protein 5.0 L Albumin 2.6 L Total Amylase Lipase Random Vancomycin Hepatitis A IgM Ab Hep Bs Antigen Hep B Core IgM Ab Hepatitis C Antibody Blood Type Antibody Screen Active Medications Generic Name Dose Route Start Last Admin Trade Name Freq PRN Reason Stop Dose Admin Albuterol/Ipratropium 1 amp 06/12/18 08:05 Duoneb - NEB Q6H PRN SHORTNESS OF BREATH Alprazolam 0.25 mg 06/11/18 22:00 06/12/18 21:16 Xanax - PO Not Given BID JAKUB Calcium Gluconate 1,000 mg 06/13/18 08:45 Calcium Gluconate 10% - IVPUSH 06/13/18 08:46 ONCE ONE Chlorhexidine Gluconate 1 applic 06/11/18 22:00 06/12/18 21:15 Hibiclens For Decolonization - TP 1 applic HS JKAUB Administration Docusate Sodium 100 mg 06/11/18 22:00 06/13/18 06:42 Colace - PO Not Given TID JAKUB Hydrocortisone Sodium Succinate 50 mg 06/12/18 10:30 06/13/18 02:57 Solu-Cortef - IVPB 50 mg Q6H-IV JAKUB Administration Lactated Ringer's 1,000 ml in 1,000 mls @ 75 mls/hr 06/11/18 17:45 06/12/18 18:34 Lactated Ringers Solution IV 75 mls/hr ASDIR JAKUB Administration Imipenem/Cilastatin Sodium 500 100 mls @ 100 mls/hr 06/11/18 22:00 06/12/18 21:14 mg/ Sodium Chloride IVPB 100 mls/hr BID JAKUB Administration Protocol Norepinephrine Bitartrate 8, 500 mls @ 18.75 mls/hr 06/12/18 06:30 06/13/18 06:48 000 mcg/ Dextrose IV 26 mcg/min TITR JAKUB 97.5 mls/hr Administration Protocol 5 MCG/MIN Famotidine/Sodium Chloride 20 mg in 50 mls @ 100 mls/hr 06/12/18 10:00 09:01 Pepcid 20 Mg Premixed Ivpb - IVPB 100 mls/hr DAILY JAKUB Administration Metronidazole 500 mg in 100 mls @ 100 mls/hr 06/12/18 10:00 06/13/18 02:06 Flagyl 500mg Premixed Ivpb - IVPB 100 mls/hr Q8H-IV JAKUB Administration Midazolam HCl 100 mg/ Sodium 100 mls @ 1 mls/hr 06/12/18 16:30 06/12/18 18:39 Chloride IVPB 2 mg/hr TITR JAKUB 2 mls/hr Titration Protocol 1 MG/HR Vasopressin 50 units/ Sodium 100 mls @ 4.8 mls/hr 06/12/18 18:30 06/13/18 07: 10 Chloride IVPB 6 units/hr ASDIR JAKUB 12 mls/hr Titration Protocol 2.4 UNITS/HR Esmolol HCl 2,500,000 mcg in 250 mls @ 20.303 mls/hr 06/13/18 02:00 06/13/18 07:45 Brevibloc 2500 Mg/250 Ml - IVPB 0 mcg/kg/min TITR JAKUB 0 mls/hr Titration Protocol 50 MCG/KG/MIN Sodium Bicarbonate 150 meq/ 1,150 mls @ 100 mls/hr 06/13/18 08:15 Dextrose IV Q11H JAKUB Metoprolol Tartrate 25 mg 06/11/18 22:00 06/12/18 21:15 Lopressor - PO Not Given BID JAKUB Mupirocin 1 applic 06/11/18 22:00 06/12/18 21:14 Bactroban Ointment (For Decolonization) - NS 06/16/18 21:59 1 applic BID JAKUB Administration ASSESSMENT/PLAN: 82 year old woman with history of Afib (on eliquis) HTN, HLD, CHF, anal cancer who presents with 2 days of shortness of breath after cold/ flu symptoms 1 week ago. She admits to some mild mid abdominal pain, denies N/V/D/C or fever. She denies chest pain, abd pain, lightheadedness, urinary burning or incontinence, or bowel incontinence. On presentation to the ED the patient was tachycardic, hypotensive to 90s/70s. ED Course notable for: - improvement of BP with IVF, up to the 110s systolic - lactic acid of 13.7 --> repeat 12.7 - WBC: 9, Hb 12.7, INR 2.89, VBG: pH7.28, pCO2 26.6, pO2 44.5, HCO3 12 - BNP: 01561 - Zosyn for empiric coverage - pending repeat cmp, lactic acid, BNP, lipase - negative UA Cardiac Afib, tachycardia, CHF, hypotension, HLD, troponinemia - home Eliquis - hold due to supratherapeutic INR, lasix 20mg daily held - home meds: lopressor 25mg BID - tele monitoring - BNP: 54288 --> 42811 --> 47988 - trend troponin 0.9 --> 0.6 - 06/13: patient Afib RVR 140s and hypotensive - Per Cards: can start digoxin or amio. Digoxin .25mg Q6H started - pt on vasopressin gtt, levophed gtt Pulm CHF, COPD - home med: ventolin neb - Chest CT 06/11: mixed alveolar and interstitial opacities in upper and lower lung walsh bilaterally, small to moderate R sided pleural effusion, small L sided pleural effusion - BNP: 30575 --> 49121 - Influenza: negative - D-dimer: 4364 elevated - Pt intubated on 06/12: on Versed gtt - ABG 06/13 with metabolic acidosis, sodium bicarb drip started GI Anal cancer, acute cholecystitis, possible acute pancreatitis, transaminitis 2/ 2 hepatic shock - patient started radiation and chemotherapy for anal cancer in September, and has since completed it. - AST / ALT: 7508/7035 --> 4820/5320 - Lipase: 46 - negative - Abd US 06/11: cholelithiasis w/ findings suggesting acute cholecystitis, no definite biliary tract dilation - 06/12: cholecystostomy tube placed by IR - hepatitis panel negative - stool occult negative ID Acute cholecystitis, Pneumonia - per ID: imipenem - pending: sputum cx, urine cx, body fluid cx, blood cx Renal BENJAMIN, BUN/Cr > 20 - trend BUN/Cr - Renal consulted, pending recs Heme Thrombocytopenia - Heme following - trend platelets - 06/12:ordered 2U platelets, 3U FFP, Vitamin K - pending platelets > 50 and INR < 1.5 for IR cholecystostomy tube - 06/13: platelets down to 30 from 96 yesterday, without active bleeding, stable H/H will recheck labs and transfuse as needed Endo DM, hypoglycemia - blood glucose 93 F/E/N Hypocalcemia - NPO - LR @ 75 - corrected Ca 8.3, calcium repletion, trend electrolytes DVT ppx: SCDs GI ppx: pepcid Code Status: DNR/DNI, Per health proxy and patient, they would like intubation for procedures or temporary measures but not for life sustaining purposes. Dispo: Plan for compassionate weaning, will discuss with family. Visit type - Emergency Visit Emergency Visit: No - New Patient This patient is new to me today: No - Critical Care Critical Care patient: Yes Total Critical Care Time (in minutes): 35 Critical Care Statement: The care of this patient involved high complexity decision making to prevent further life threatening deterioration of the patient 's condition and/or to evaluate & treat vital organ system(s) failure or risk of failure.
[2018-06-13] MEDS ORDERED: CALCIUM GLUCONATE 10% - 1,000 MG/10 ML VIAL IVPUSH ONE (08:45)
[2018-06-13] MEDS ORDERED: DIGOXIN 0.5 MG/2 ML AMPUL IVPUSH ONE (08:50)
[2018-06-13] MEDS: DIGOXIN 0.5 MG/2 ML AMPUL IVPUSH SCH ×2 (08:54→15:18)
[2018-06-13] MEDS: FAMOTIDINE 20 MG/50 ML IVPB 20 MG/50 ML MG IVPB SCH (09:16)
[2018-06-13] MEDS: METOPROLOL TARTRATE 25 MG TABLET (FP) PO SCH (09:24)
[2018-06-13] MEDS: MUPIROCIN 2% TOPICAL OINTMENT FOR DECOLONIZATION NS SCH (09:25)
[2018-06-13] MEDS: ALPRAZolam 0.25 MG TABLET PO SCH (09:28)
[2018-06-13 09:53] LABS: INR 3.27 (0.83-1.09); PROTHROMBIN TIME (PATIENT) 39.1 SEC (9.7-13.0)
[2018-06-13] MEDS: IMIPENEM/CILASTATIN SODIUM 500 MG in SODIUM CHLORIDE 100 ML IVPB SCH (10:02)
[2018-06-13 10:07] LABS: ANISOCYTOSIS 1+; MACROCYTOSIS 1+; OVALOCYTE 1+; PLATELET ESTIMATE DECREASED
--- NOTE | 2018-06-13 10:21 | EKG ---
Test Reason : Blood Pressure : / mmHG Vent. Rate : 155 BPM Atrial Rate : 163 BPM P-R Int : 000 ms QRS Dur : 084 ms QT Int : 302 ms P-R-T Axes : 000 060 204 degrees QTc Int : 485 ms ATRIAL FIBRILLATION WITH RAPID VENTRICULAR RESPONSE ABNORMAL ECG WHEN COMPARED WITH ECG OF 11-JUN-2018 11:13, T WAVE INVERSION NOW EVIDENT IN INFERIOR LEADS Confirmed by ROSA ELENA PLUNKETT, JACINTA ([id number]) on 06/13/2018 10:21:00 AM Referred By: Confirmed By:JACINTA CUBA MD
--- NOTE | 2018-06-13 12:05 | PN ---
Teaching Attending Note Name of Resident: Suyapa Beaulieu ATTENDING PHYSICIAN STATEMENT I saw and evaluated the patient. I reviewed the resident's note and discussed the case with the resident. I agree with the resident's findings and plan as documented. SUBJECTIVE: Patient seen and examined in the ICU. Intubated and sedated on AC mode of vent , 50% FiO2. 30mcq NE and Vasopressin for hemodynamic support. Severe acidosis and metabolic derangements noted. OBJECTIVE: Intake & Output 06/10/18 06/11/18 06/12/18 06/13/18 23:59 23:59 23:59 23:59 Intake Total 300 2281 2739 Output Total 20 20 Balance 300 2261 2719 Weight 149 lb 3.2 oz 149 lb 3.2 oz Last Vital Signs Temp Pulse Resp BP Pulse Ox 98.7 F 129 H 23 H 105/48 L 95 06/13/18 12:00 06/13/18 12:00 06/13/18 12:00 06/13/18 12:00 06/13/18 09:00 Active Medications Albuterol/Ipratropium (Duoneb -) 1 amp NEB Q6H PRN PRN Reason: SHORTNESS OF BREATH Alprazolam (Xanax -) 0.25 mg PO BID JAKUB Last Admin: 06/13/18 09:28 Dose: Not Given Chlorhexidine Gluconate (Hibiclens For Decolonization -) 1 applic TP HS JAKUB Last Admin: 06/12/18 21:15 Dose: 1 applic Digoxin (Lanoxin Injection -) 0.25 mg IVPUSH Q6H-IV JAKUB Last Admin: 06/13/18 08:54 Dose: 0.25 mg Docusate Sodium (Colace -) 100 mg PO TID JAKUB Last Admin: 06/13/18 06:42 Dose: Not Given Hydrocortisone Sodium Succinate (Solu-Cortef -) 50 mg IVPB Q6H-IV JAKUB Last Admin: 06/13/18 09:13 Dose: 50 mg Lactated Ringer's (Lactated Ringers Solution) 1,000 ml in 1,000 mls @ 75 mls/ hr IV ASDIR JAKUB Last Admin: 06/12/18 18:34 Dose: 75 mls/hr Imipenem/Cilastatin Sodium 500 (mg/ Sodium Chloride) 100 mls @ 100 mls/hr IVPB BID JAKUB; Protocol Last Admin: 06/13/18 10:02 Dose: 100 mls/hr Norepinephrine Bitartrate 8, (000 mcg/ Dextrose) 500 mls @ 18.75 mls/hr IV TITR JAKUB; Protocol Last Admin: 06/13/18 06:48 Dose: 26 mcg/min, 97.5 mls/hr Famotidine/Sodium Chloride (Pepcid 20 Mg Premixed Ivpb -) 20 mg in 50 mls @ 100 mls/hr IVPB DAILY JAKUB Last Admin: 06/13/18 09:16 Dose: 100 mls/hr Metronidazole (Flagyl 500mg Premixed Ivpb -) 500 mg in 100 mls @ 100 mls/hr IVPB Q8H-IV JAKUB Last Admin: 06/13/18 09:26 Dose: 100 mls/hr Midazolam HCl 100 mg/ Sodium (Chloride) 100 mls @ 1 mls/hr IVPB TITR JAKUB; Protocol Last Titration: 06/12/18 18:39 Dose: 2 mg/hr, 2 mls/hr Vasopressin 50 units/ Sodium (Chloride) 100 mls @ 4.8 mls/hr IVPB ASDIR JAKUB; Protocol Last Titration: 06/13/18 07:10 Dose: 6 units/hr, 12 mls/hr Esmolol HCl (Brevibloc 2500 Mg/250 Ml -) 2,500,000 mcg in 250 mls @ 20.303 mls/ hr IVPB TITR JAKUB; Protocol Last Titration: 06/13/18 07:45 Dose: 0 mcg/kg/min, 0 mls/hr Sodium Bicarbonate 150 meq/ (Dextrose) 1,150 mls @ 100 mls/hr IV Q11H JAKUB Last Admin: 06/13/18 09:16 Dose: 100 mls/hr Mupirocin (Bactroban Ointment (For Decolonization) -) 1 applic NS BID JAKUB Stop: 06/16/18 21:59 Last Admin: 06/13/18 09:25 Dose: 1 applic Gen: Intubated and sedated Heart: tachyardic Lung: bilateral coarse rhonchi Abd: soft, nontender Ext: no edema, cold to touch Laboratory Results - last 24 hr 06/12/18 06/12/18 06/12/18 05:30 08:08 08:10 WBC RBC Hgb Hct MCV MCH MCHC RDW Plt Count MPV Absolute Neuts (auto) Neutrophils % Neutrophils % (Manual) No Result Required. Band Neutrophils % Lymphocytes % Lymphocytes % (Manual) Monocytes % Monocytes % (Manual) Eosinophils % Eosinophils % (Manual) Basophils % Basophils % (Manual) Myelocytes % (Man) Promyelocytes % (Man) Blast Cells % (Manual) Nucleated RBC % Metamyelocytes Hypochromia Platelet Estimate Polychromasia Poikilocytosis Anisocytosis Microcytosis Macrocytosis Ovalocytes PT with INR INR PTT (Actin FS) Puncture Site ABG pH ABG pCO2 at Pt Temp ABG pO2 at Pt Temp ABG HCO3 ABG O2 Sat (Measured) ABG O2 Content ABG Base Excess John Test O2 Delivery Device Oxygen Flow Rate Vent Mode Vent Rate Mechanical Rate PEEP Pressure Support Vent Sodium Potassium Chloride Carbon Dioxide Anion Gap BUN Creatinine Creat Clearance w eGFR POC Glucometer Random Glucose Lactic Acid Calcium Phosphorus Magnesium Total Bilirubin AST ALT Alkaline Phosphatase Troponin I B-Natriuretic Peptide Total Protein Albumin Lipase Hepatitis A IgM Ab Negative Hep Bs Antigen Negative Hep B Core IgM Ab Negative Hepatitis C Antibody 0.2 Blood Type O POSITIVE Antibody Screen Negative 06/12/18 06/12/18 06/12/18 15:35 15:35 15:35 WBC 8.0 RBC 2.95 L Hgb 11.2 Hct 34.0 MCV 115.1 H MCH 38.1 H MCHC 33.1 RDW 18.8 H Plt Count 96 L D MPV 8.1 D Absolute Neuts (auto) Neutrophils % Neutrophils % (Manual) Band Neutrophils % Lymphocytes % Lymphocytes % (Manual) Monocytes % Monocytes % (Manual) Eosinophils % Eosinophils % (Manual) Basophils % Basophils % (Manual) Myelocytes % (Man) Promyelocytes % (Man) Blast Cells % (Manual) Nucleated RBC % Metamyelocytes Hypochromia Platelet Estimate Polychromasia Poikilocytosis Anisocytosis Microcytosis Macrocytosis Ovalocytes PT with INR 21.90 H INR 1.84 H PTT (Actin FS) 25.8 Puncture Site ABG pH ABG pCO2 at Pt Temp ABG pO2 at Pt Temp ABG HCO3 ABG O2 Sat (Measured) ABG O2 Content ABG Base Excess John Test O2 Delivery Device Oxygen Flow Rate Vent Mode Vent Rate Mechanical Rate PEEP Pressure Support Vent Sodium 138 Potassium 4.9 Chloride 101 Carbon Dioxide 15 L Anion Gap 22 H BUN 61 H Creatinine 2.4 H Creat Clearance w eGFR 19.42 POC Glucometer Random Glucose 98 Lactic Acid Calcium 7.8 L Phosphorus Magnesium Total Bilirubin 5.8 H AST 4820 H ALT 5320 H Alkaline Phosphatase 107 Troponin I 0.06 H B-Natriuretic Peptide Total Protein 6.1 L Albumin 3.4 Lipase Hepatitis A IgM Ab Hep Bs Antigen Hep B Core IgM Ab Hepatitis C Antibody Blood Type Antibody Screen 06/12/18 06/12/18 06/12/18 15:35 15:35 16:40 WBC RBC Hgb Hct MCV MCH MCHC RDW Plt Count MPV Absolute Neuts (auto) Neutrophils % Neutrophils % (Manual) Band Neutrophils % Lymphocytes % Lymphocytes % (Manual) Monocytes % Monocytes % (Manual) Eosinophils % Eosinophils % (Manual) Basophils % Basophils % (Manual) Myelocytes % (Man) Promyelocytes % (Man) Blast Cells % (Manual) Nucleated RBC % Metamyelocytes Hypochromia Platelet Estimate Polychromasia Poikilocytosis Anisocytosis Microcytosis Macrocytosis Ovalocytes PT with INR INR PTT (Actin FS) Puncture Site Left radial ABG pH 7.20 L* ABG pCO2 at Pt Temp 32.5 L ABG pO2 at Pt Temp 124.0 H D ABG HCO3 12.1 L* ABG O2 Sat (Measured) 97.2 ABG O2 Content 14.1 L ABG Base Excess -14.6 L* John Test Positive O2 Delivery Device Other Oxygen Flow Rate 50% Vent Mode A/c Vent Rate 14 Mechanical Rate Esput PEEP 5.0 Pressure Support Vent 450 Sodium Potassium Chloride Carbon Dioxide Anion Gap BUN Creatinine Creat Clearance w eGFR POC Glucometer Random Glucose Lactic Acid 10.0 H* Calcium Phosphorus Magnesium Total Bilirubin AST ALT Alkaline Phosphatase Troponin I B-Natriuretic Peptide 39397.7 H Total Protein Albumin Lipase 283 Hepatitis A IgM Ab Hep Bs Antigen Hep B Core IgM Ab Hepatitis C Antibody Blood Type Antibody Screen 06/12/18 06/13/18 06/13/18 17:34 05:00 05:00 WBC 9.8 RBC 2.77 L Hgb 10.0 L Hct 33.0 MCV 119.1 H MCH 36.1 H MCHC 30.3 L RDW 19.4 H Plt Count 30 L* D MPV 9.4 D Absolute Neuts (auto) 8.7 H Neutrophils % 88.5 H Neutrophils % (Manual) 92.0 H Band Neutrophils % 3.0 Lymphocytes % 0.8 L Lymphocytes % (Manual) 1.0 L D Monocytes % 2.9 L Monocytes % (Manual) 4 Eosinophils % 7.6 H Eosinophils % (Manual) 0.0 Basophils % 0.2 Basophils % (Manual) 0.0 Myelocytes % (Man) 0 Promyelocytes % (Man) 0 Blast Cells % (Manual) 0 Nucleated RBC % 3 H Metamyelocytes 0 Hypochromia 1+ Platelet Estimate Decreased Polychromasia 1+ Poikilocytosis 1+ Anisocytosis 1+ Microcytosis 0 Macrocytosis 1+ Ovalocytes 1+ PT with INR INR PTT (Actin FS) Puncture Site ABG pH ABG pCO2 at Pt Temp ABG pO2 at Pt Temp ABG HCO3 ABG O2 Sat (Measured) ABG O2 Content ABG Base Excess John Test O2 Delivery Device Oxygen Flow Rate Vent Mode Vent Rate Mechanical Rate PEEP Pressure Support Vent Sodium 131 L Potassium 4.9 Chloride 98 Carbon Dioxide 14 L Anion Gap 20 H BUN 55 H Creatinine 2.5 H Creat Clearance w eGFR 18.53 POC Glucometer 95.62970 Random Glucose 267 H Lactic Acid Calcium 6.6 L* Phosphorus 7.6 H Magnesium 2.0 Total Bilirubin 6.4 H AST 3230 H ALT 3846 H Alkaline Phosphatase 110 Troponin I B-Natriuretic Peptide Total Protein 5.0 L Albumin 2.6 L Lipase Hepatitis A IgM Ab Hep Bs Antigen Hep B Core IgM Ab Hepatitis C Antibody Blood Type Antibody Screen 06/13/18 06/13/18 06/13/18 06:30 08:48 08:48 WBC RBC Hgb Hct MCV MCH MCHC RDW Plt Count MPV Absolute Neuts (auto) Neutrophils % Neutrophils % (Manual) Band Neutrophils % Lymphocytes % Lymphocytes % (Manual) Monocytes % Monocytes % (Manual) Eosinophils % Eosinophils % (Manual) Basophils % Basophils % (Manual) Myelocytes % (Man) Promyelocytes % (Man) Blast Cells % (Manual) Nucleated RBC % Metamyelocytes Hypochromia Platelet Estimate Polychromasia Poikilocytosis Anisocytosis Microcytosis Macrocytosis Ovalocytes PT with INR 39.10 H INR 3.27 H PTT (Actin FS) Puncture Site Md puncture ABG pH 7.15 L* ABG pCO2 at Pt Temp 31.6 L ABG pO2 at Pt Temp 152.0 H* D ABG HCO3 10.5 L* ABG O2 Sat (Measured) 98.6 ABG O2 Content 14.1 L ABG Base Excess -17.0 L* John Test Not applicable O2 Delivery Device Vent Oxygen Flow Rate 50% Vent Mode A/c Vent Rate 14 Mechanical Rate Yes PEEP Pressure Support Vent 450 Sodium Potassium Chloride Carbon Dioxide Anion Gap BUN Creatinine Creat Clearance w eGFR POC Glucometer Random Glucose Lactic Acid 12.3 H* Calcium Phosphorus Magnesium Total Bilirubin AST ALT Alkaline Phosphatase Troponin I B-Natriuretic Peptide Total Protein Albumin Lipase Hepatitis A IgM Ab Hep Bs Antigen Hep B Core IgM Ab Hepatitis C Antibody Blood Type Antibody Screen 06/13/18 10:01 WBC RBC Hgb Hct MCV MCH MCHC RDW Plt Count MPV Absolute Neuts (auto) Neutrophils % Neutrophils % (Manual) Band Neutrophils % Lymphocytes % Lymphocytes % (Manual) Monocytes % Monocytes % (Manual) Eosinophils % Eosinophils % (Manual) Basophils % Basophils % (Manual) Myelocytes % (Man) Promyelocytes % (Man) Blast Cells % (Manual) Nucleated RBC % Metamyelocytes Hypochromia Platelet Estimate Polychromasia Poikilocytosis Anisocytosis Microcytosis Macrocytosis Ovalocytes PT with INR INR PTT (Actin FS) Puncture Site ABG pH ABG pCO2 at Pt Temp ABG pO2 at Pt Temp ABG HCO3 ABG O2 Sat (Measured) ABG O2 Content ABG Base Excess John Test O2 Delivery Device Oxygen Flow Rate Vent Mode Vent Rate Mechanical Rate PEEP Pressure Support Vent Sodium Potassium Chloride Carbon Dioxide Anion Gap BUN Creatinine Creat Clearance w eGFR POC Glucometer 93.72877 Random Glucose Lactic Acid Calcium Phosphorus Magnesium Total Bilirubin AST ALT Alkaline Phosphatase Troponin I B-Natriuretic Peptide Total Protein Albumin Lipase Hepatitis A IgM Ab Hep Bs Antigen Hep B Core IgM Ab Hepatitis C Antibody Blood Type Antibody Screen ASSESSMENT AND PLAN: Acute Respiratory Failure Acute Cholangitis vs Cholecystitis Septic Shock Lactic Acidosis Acute Kidney Injury Metabolic Acidosis Elevated LFTs Atrial Fibrillation with RVR LV Diastolic Dysfunction Thrombocytopenia Interstitial Lung Disease h/o Anal Cancer HTN Hyperlipidemia - ARDS strategy ventilation - IV antibiotics - f/u cultures - IVF - monitor urine output, creatinine - Bicarb drip noted - titrate pressors to maintain MAP >65 - stress dose steroids - transfuse platelets, FFP as indicated - DNR/DNI - Need further family discussions for GOC - continue ICU monitoring Dr Chan Critical care time spent in reviewing chart, evaluating patient and formulating plan 35 min
--- NOTE | 2018-06-13 12:51 | CONSULT ---
Consult Consult Specialty:: Nephrology Reason for Consultation:: BENJAMIN - History of Present Illness Chief Complaint: initially presented with cough and shortnesss of breath History of Present Illness: Pt is an 82 year old female with pmhx of a-fib, htn, anal cancer, and CHF who initially presented with SOB and weakness. She had progressive respiratory failure. She is now intubated and in the ICU. She has sepsis and in on pressors. I was called to evaluate her for BENJAMIN. She is lethargic and unable to give history. Chart was reviewed. Pt also has decreased urine output. 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 History of Recent Travel: No Home Medications - Allergies Allergies/Adverse Reactions: Allergies Allergy/AdvReac Type Severity Reaction Status Date / Time Sulfa (Sulfonamide Allergy Unknown Verified 06/11/18 11:15 Antibiotics) - Home Medications Home Medications: Ambulatory Orders Alprazolam [Xanax] 0.25 mg PO BID MDD 0.75 10/18/17 Ondansetron [Zofran *Odt*] 8 mg PO Q8H PRN 12/31/17 Megestrol Acetate Oral Susp [Megace Oral Suspension -] 400 mg PO DAILY 30 Days # 1 cup 01/05/18 Furosemide [Lasix -] 20 mg PO DAILY #7 tablet 02/22/18 Albuterol 0.083% Nebulizer Ela [Ventolin 0.083% Nebulizer Soln -] 1 vial NEB Q6H 05/08/18 Docusate Sodium [Colace -] 100 mg PO TID #90 capsule 05/13/18 Metoprolol Tartrate [Lopressor -] 25 mg PO BID #60 tablet 05/16/18 predniSONE [Deltasone -] 20 mg PO TID 06/11/18 Family Disease History - Family Disease History Family Disease History: CA: Father (leukemia), Sister (breast cancer), Other: Mother (alzheimer) Review of Systems Unable to obtain ROS, reason: lethargy Physical Exam Vital Signs: Vital Signs Temperature 98.7 F 06/13/18 12:00 Pulse Rate 129 H 06/13/18 12:00 Respiratory Rate 23 H 06/13/18 12:00 Blood Pressure 105/48 L 06/13/18 12:00 O2 Sat by Pulse Oximetry (%) 95 06/13/18 09:00 Constitutional: Yes: Calm Eyes: Yes: Conjunctiva Clear HENT: Yes: Atraumatic Neck: Yes: Supple Cardiovascular: Yes: S1, S2 Respiratory: Yes: Mechanically Ventilated Gastrointestinal: Yes: Other (cholecystostomy drain) Renal/: Yes: Magana Present, Oliguria Musculoskeletal: Yes: Muscle Weakness Edema: Yes Edema: LLE: Trace, RLE: Trace Neurological: Yes: Lethargy Labs: CBC, BMP 06/13/18 05:00 06/13/18 05:00 Laboratory Tests 06/11/18 06/12/18 06/12/18 19:35 05:30 15:35 Hgb Sodium Potassium Carbon Dioxide Creatinine 2.0 H 2.3 H 2.4 H Lactic Acid AST ALT B-Natriuretic Peptide 06/12/18 06/12/18 06/12/18 15:35 15:35 15:35 Hgb 11.2 Sodium Potassium Carbon Dioxide Creatinine Lactic Acid 10.0 H* AST ALT B-Natriuretic Peptide 06188.7 H 06/13/18 06/13/18 06/13/18 05:00 05:00 08:48 Hgb 10.0 L Sodium 131 L Potassium 4.9 Carbon Dioxide 14 L Creatinine 2.5 H Lactic Acid 12.3 H* AST 3230 H ALT 3846 H B-Natriuretic Peptide Imaging - Results Chest X-ray: Report Reviewed Problem List - Problems (1) Acute renal disease Code(s): N28.9 - DISORDER OF KIDNEY AND URETER, UNSPECIFIED (2) Atrial fibrillation with rapid ventricular response Code(s): I48.91 - UNSPECIFIED ATRIAL FIBRILLATION (3) Cholecystitis Code(s): K81.9 - CHOLECYSTITIS, UNSPECIFIED Assessment/Plan Current Medications Generic Name Dose Route Start Last Admin Trade Name Freq PRN Reason Stop Dose Admin Albuterol/Ipratropium 1 amp 06/12/18 08:05 Duoneb - NEB Q6H PRN SHORTNESS OF BREATH Alprazolam 0.25 mg 06/11/18 22:00 06/13/18 09:28 Xanax - PO Not Given BID JAKUB Chlorhexidine Gluconate 1 applic 06/11/18 22:00 06/12/18 21:15 Hibiclens For Decolonization - TP 1 applic HS JAKUB Administration Digoxin 0.25 mg 06/13/18 09:00 06/13/18 08:54 Lanoxin Injection - IVPUSH 0.25 mg Q6H-IV JAKUB Administration Docusate Sodium 100 mg 06/11/18 22:00 06/13/18 06:42 Colace - PO Not Given TID JAKUB Hydrocortisone Sodium Succinate 50 mg 06/12/18 10:30 06/13/18 09:13 Solu-Cortef - IVPB 50 mg Q6H-IV JAKUB Administration Lactated Ringer's 1,000 ml in 1,000 mls @ 75 mls/hr 06/11/18 17:45 06/12/18 18:34 Lactated Ringers Solution IV 75 mls/hr ASDIR JAKUB Administration Imipenem/Cilastatin Sodium 500 100 mls @ 100 mls/hr 06/11/18 22:00 06/13/18 10:02 mg/ Sodium Chloride IVPB 100 mls/hr BID JAKUB Administration Protocol Norepinephrine Bitartrate 8, 500 mls @ 18.75 mls/hr 06/12/18 06:30 06/13/18 06:48 000 mcg/ Dextrose IV 26 mcg/min TITR JAKUB 97.5 mls/hr Administration Protocol 5 MCG/MIN Famotidine/Sodium Chloride 20 mg in 50 mls @ 100 mls/hr 06/12/18 10:00 09:16 Pepcid 20 Mg Premixed Ivpb - IVPB 100 mls/hr DAILY JAKUB Administration Metronidazole 500 mg in 100 mls @ 100 mls/hr 06/12/18 10:00 06/13/18 09:26 Flagyl 500mg Premixed Ivpb - IVPB 100 mls/hr Q8H-IV JAKUB Administration Midazolam HCl 100 mg/ Sodium 100 mls @ 1 mls/hr 06/12/18 16:30 06/12/18 18:39 Chloride IVPB 2 mg/hr TITR JAKUB 2 mls/hr Titration Protocol 1 MG/HR Vasopressin 50 units/ Sodium 100 mls @ 4.8 mls/hr 06/12/18 18:30 06/13/18 07: 10 Chloride IVPB 6 units/hr ASDIR JAKUB 12 mls/hr Titration Protocol 2.4 UNITS/HR Esmolol HCl 2,500,000 mcg in 250 mls @ 20.303 mls/hr 06/13/18 02:00 06/13/18 07:45 Brevibloc 2500 Mg/250 Ml - IVPB 0 mcg/kg/min TITR JAKUB 0 mls/hr Titration Protocol 50 MCG/KG/MIN Sodium Bicarbonate 150 meq/ 1,150 mls @ 100 mls/hr 06/13/18 08:15 06/13/18 09 :16 Dextrose IV 100 mls/hr Q11H JAKUB Administration Mupirocin 1 applic 06/11/18 22:00 06/13/18 09:25 Bactroban Ointment (For Decolonization) - NS 06/16/18 21:59 1 applic BID JAKUB Administration Impression 1. BENJAMIN 2. lactic acidosis 3. metabolic acidosis 4. acute respiratory failure requiring intubation 5. shock 6. sepsis 7. cholangitis/cholecystitis 8. transaminiti 9. a-fib 10. CHF 11. anal cancer Plan - chart reviewed, labs reviewed - cont with bicarb - cont pressors for a map of 65 - check dig levels - benjamin likely from hypotension an sepsis - check renal ultrasound - check ua and lytes - stop lr as she is on a bicarb drip - surgery follow up - prognosis is guarded - cont ICU care Dr Peña
--- NOTE | 2018-06-13 13:48 | PN ---
Progress Note, Physician History of Present Illness: 82 year old woman with history of Afib (on eliquis) HTN, HLD, CHF, anal cancer who presents with 2 days of shortness of breath after cold/ flu symptoms 1 week ago. She admits to some mild mid abdominal pain, denies N/V/D/C or fever. She denies chest pain, abd pain, lightheadedness, urinary burning or incontinence, or bowel incontinence. Denies recent travel. Patient reports compliance to all home medications. ED Course notable for: - on presentation to the ED the patient was tachycardic, hypotensive to 90s/70s , improvement of BP with IVF, up to the 110s systolic - lactic acid of 13, however resulting from a hemolyzed lab test - WBC: 9, Hb 12.7, INR 2.89, VBG: pH7.28, pCO2 26.6, pO2 44.5, HCO3 12 - pending repeat cmp, lactic acid, BNP, lipase - negative UA - Current Medication List Current Medications: Active Medications Albuterol/Ipratropium (Duoneb -) 1 amp NEB Q6H PRN PRN Reason: SHORTNESS OF BREATH Chlorhexidine Gluconate (Hibiclens For Decolonization -) 1 applic TP HS JAUKB Last Admin: 06/12/18 21:15 Dose: 1 applic Digoxin (Lanoxin Injection -) 0.25 mg IVPUSH Q6H-IV JAKUB Last Admin: 06/13/18 08:54 Dose: 0.25 mg Hydrocortisone Sodium Succinate (Solu-Cortef -) 50 mg IVPB Q6H-IV JAKUB Last Admin: 06/13/18 09:13 Dose: 50 mg Imipenem/Cilastatin Sodium 500 (mg/ Sodium Chloride) 100 mls @ 100 mls/hr IVPB BID JAKUB; Protocol Last Admin: 06/13/18 10:02 Dose: 100 mls/hr Norepinephrine Bitartrate 8, (000 mcg/ Dextrose) 500 mls @ 18.75 mls/hr IV TITR JAKUB; Protocol Last Admin: 06/13/18 06:48 Dose: 26 mcg/min, 97.5 mls/hr Famotidine/Sodium Chloride (Pepcid 20 Mg Premixed Ivpb -) 20 mg in 50 mls @ 100 mls/hr IVPB DAILY JAKUB Last Admin: 06/13/18 09:16 Dose: 100 mls/hr Metronidazole (Flagyl 500mg Premixed Ivpb -) 500 mg in 100 mls @ 100 mls/hr IVPB Q8H-IV JAKUB Last Admin: 06/13/18 09:26 Dose: 100 mls/hr Midazolam HCl 100 mg/ Sodium (Chloride) 100 mls @ 1 mls/hr IVPB TITR JAKUB; Protocol Last Titration: 06/12/18 18:39 Dose: 2 mg/hr, 2 mls/hr Vasopressin 50 units/ Sodium (Chloride) 100 mls @ 4.8 mls/hr IVPB ASDIR JAKUB; Protocol Last Titration: 06/13/18 07:10 Dose: 6 units/hr, 12 mls/hr Sodium Bicarbonate 150 meq/ (Dextrose) 1,150 mls @ 100 mls/hr IV Q11H JAKUB Last Admin: 06/13/18 09:16 Dose: 100 mls/hr Mupirocin (Bactroban Ointment (For Decolonization) -) 1 applic NS BID JAKUB Stop: 06/16/18 21:59 Last Admin: 06/13/18 09:25 Dose: 1 applic - Objective Vital Signs: Vital Signs Temperature 98.7 F 06/13/18 12:00 Pulse Rate 129 H 06/13/18 12:00 Respiratory Rate 23 H 06/13/18 12:00 Blood Pressure 105/48 L 06/13/18 12:00 O2 Sat by Pulse Oximetry (%) 95 06/13/18 09:00 Eyes: Yes: WNL, Conjunctiva Clear, EOM Intact HENT: Yes: WNL, Atraumatic, Normocephalic Neck: Yes: WNL, Supple, Trachea Midline Cardiovascular: Yes: Tachycardia, Pulse Irregular, S1, S2 Respiratory: Yes: Mechanically Ventilated, Rhonchi Gastrointestinal: Yes: WNL, Normal Bowel Sounds Genitourinary: Yes: WNL Musculoskeletal: Yes: WNL Extremities: Yes: WNL Edema: Yes Integumentary: Yes: WNL Neurological: Yes: Other (sedated) ...Motor Strength: WNL Psychiatric: Yes: WNL Labs: CBC, BMP 06/13/18 05:00 06/13/18 05:00 INR, PTT INR 3.27 (0.83-1.09) H 06/13/18 08:48 Fibrinogen 397.0 mg/dL (238-498) 06/12/18 06:30 Problem List - Problems (1) Severe sepsis Code(s): A41.9 - SEPSIS, UNSPECIFIED ORGANISM; R65.20 - SEVERE SEPSIS WITHOUT SEPTIC SHOCK (2) Abnormal x-ray Code(s): R93.89 - ABNORMAL FINDINGS ON DX IMAGING OF [facility] BODY STRUCTURES (3) Acute on chronic respiratory failure with hypoxemia Code(s): J96.21 - ACUTE AND CHRONIC RESPIRATORY FAILURE WITH HYPOXIA (4) Chest tightness Code(s): R07.89 - OTHER CHEST PAIN (5) Hypokalemia Code(s): E87.6 - HYPOKALEMIA (6) Tachycardia Code(s): R00.0 - TACHYCARDIA, UNSPECIFIED (7) Thrombocytopenia Code(s): D69.6 - THROMBOCYTOPENIA, UNSPECIFIED (8) Anal cancer Code(s): C21.0 - MALIGNANT NEOPLASM OF ANUS, UNSPECIFIED (9) Anxiety and depression Code(s): F41.9 - ANXIETY DISORDER, UNSPECIFIED; F32.9 - MAJOR DEPRESSIVE DISORDER, SINGLE EPISODE, UNSPECIFIED (10) Atrial fibrillation Code(s): I48.91 - UNSPECIFIED ATRIAL FIBRILLATION Qualifiers: Atrial fibrillation type: unspecified Qualified Code(s): I48.91 - Unspecified atrial fibrillation (11) CHF (congestive heart failure) Code(s): I50.9 - HEART FAILURE, UNSPECIFIED (12) Diarrhea Code(s): R19.7 - DIARRHEA, UNSPECIFIED Qualifiers: Diarrhea type: unspecified type Qualified Code(s): R19.7 - Diarrhea, unspecified (13) Diastolic CHF Code(s): I50.30 - UNSPECIFIED DIASTOLIC (CONGESTIVE) HEART FAILURE (14) Interstitial lung disease Code(s): J84.9 - INTERSTITIAL PULMONARY DISEASE, UNSPECIFIED (15) Pulmonary congestion Code(s): R09.89 - OT SYMPTOMS AND SIGNS INVOLVING THE CIRC AND RESP SYSTEMS (16) UTI (urinary tract infection) Code(s): N39.0 - URINARY TRACT INFECTION, SITE NOT SPECIFIED Qualifiers: Urinary tract infection type: site unspecified Hematuria presence: without hematuria Qualified Code(s): N39.0 - Urinary tract infection, site not specified (17) Vomiting Code(s): R11.10 - VOMITING, UNSPECIFIED Qualifiers: Vomiting type: unspecified Vomiting Intractability: intractable Nausea presence: with nausea Qualified Code(s): R11.2 - Nausea with vomiting, unspecified (18) Weakness Code(s): R53.1 - WEAKNESS Assessment/Plan Acute Respiratory Failure Acute Cholangitis vs Cholecystitis Septic Shock Lactic Acidosis Acute Kidney Injury Metabolic Acidosis Elevated LFTs Atrial Fibrillation with RVR LV Diastolic Dysfunction Thrombocytopenia Interstitial Lung Disease h/o Anal Cancer HTN Hyperlipidemia Plan cont supportive rx abx, pressiors vent suport Dig for rate control Prognosis is poor d/w family at the bedside Critical time spent 37 min
--- NOTE | 2018-06-13 15:00 | PN ---
Progress Note, Physician History of Present Illness: events noted from yesterday patient detoriated had to be intubated now on pressors - Current Medication List Current Medications: Active Medications Albuterol/Ipratropium (Duoneb -) 1 amp NEB Q6H PRN PRN Reason: SHORTNESS OF BREATH Chlorhexidine Gluconate (Hibiclens For Decolonization -) 1 applic TP HS JAKUB Last Admin: 06/12/18 21:15 Dose: 1 applic Digoxin (Lanoxin Injection -) 0.25 mg IVPUSH Q6H-IV JAKUB Last Admin: 06/13/18 08:54 Dose: 0.25 mg Hydrocortisone Sodium Succinate (Solu-Cortef -) 50 mg IVPB Q6H-IV JAKUB Last Admin: 06/13/18 09:13 Dose: 50 mg Imipenem/Cilastatin Sodium 500 (mg/ Sodium Chloride) 100 mls @ 100 mls/hr IVPB BID JAKUB; Protocol Last Admin: 06/13/18 10:02 Dose: 100 mls/hr Norepinephrine Bitartrate 8, (000 mcg/ Dextrose) 500 mls @ 18.75 mls/hr IV TITR JAKUB; Protocol Last Admin: 06/13/18 06:48 Dose: 26 mcg/min, 97.5 mls/hr Famotidine/Sodium Chloride (Pepcid 20 Mg Premixed Ivpb -) 20 mg in 50 mls @ 100 mls/hr IVPB DAILY JAKUB Last Admin: 06/13/18 09:16 Dose: 100 mls/hr Metronidazole (Flagyl 500mg Premixed Ivpb -) 500 mg in 100 mls @ 100 mls/hr IVPB Q8H-IV JAKUB Last Admin: 06/13/18 09:26 Dose: 100 mls/hr Midazolam HCl 100 mg/ Sodium (Chloride) 100 mls @ 1 mls/hr IVPB TITR JAKUB; Protocol Last Titration: 06/12/18 18:39 Dose: 2 mg/hr, 2 mls/hr Vasopressin 50 units/ Sodium (Chloride) 100 mls @ 4.8 mls/hr IVPB ASDIR JAKUB; Protocol Last Titration: 06/13/18 07:10 Dose: 6 units/hr, 12 mls/hr Sodium Bicarbonate 150 meq/ (Dextrose) 1,150 mls @ 100 mls/hr IV Q11H JAKUB Last Admin: 06/13/18 09:16 Dose: 100 mls/hr Mupirocin (Bactroban Ointment (For Decolonization) -) 1 applic NS BID JAKUB Stop: 06/16/18 21:59 Last Admin: 06/13/18 09:25 Dose: 1 applic - Objective Vital Signs: Vital Signs Temperature 98.7 F 06/13/18 12:00 Pulse Rate 120 H 06/13/18 14:00 Respiratory Rate 20 06/13/18 14:24 Blood Pressure 113/64 06/13/18 14:00 O2 Sat by Pulse Oximetry (%) 95 06/13/18 09:00 Constitutional: Yes: Other Cardiovascular: Yes: S1, S2 Respiratory: Yes: Intubated, Mechanically Ventilated Gastrointestinal: Yes: Hypoactive Bowel Sounds Musculoskeletal: Yes: WNL Extremities: Yes: WNL Neurological: Yes: Other Psychiatric: Yes: Other Labs: CBC, BMP 06/13/18 05:00 06/13/18 05:00 INR, PTT INR 3.27 (0.83-1.09) H 06/13/18 08:48 Fibrinogen 397.0 mg/dL (238-498) 06/12/18 06:30 - ....Imaging Chest X-ray: Report Reviewed, Image Reviewed Assessment/Plan Acute Respiratory Failure Acute Cholangitis vs Cholecystitis Septic Shock Lactic Acidosis Acute Kidney Injury Metabolic Acidosis Elevated LFTs Atrial Fibrillation with RVR LV Diastolic Dysfunction Thrombocytopenia Interstitial Lung Disease h/o Anal Cancer HTN Hyperlipidemia plan continue current mgmt iv abx await for cx report hydration rest as per icu close watch cc 40 min
--- NOTE | 2018-06-13 15:16 | PN ---
Progress Note (short form) - Note Progress Note: PROGRESS NOTE FOR HEMATOLOGY/ONCOLOGY Patient seen and examined by me at bedside Patient s/p IR Guided cholecystostomy S/P intubation patient on versed, levophed and vasopressin drips this AM started on digoxin for tachycardiad rhytm started on Na bicarb for metabolic acidosis Ongoing discussion on comfort care for today Vital Signs Temperature 98.7 F 06/13/18 12:00 Pulse Rate 120 H 06/13/18 14:00 Respiratory Rate 20 06/13/18 14:24 Blood Pressure 113/64 06/13/18 14:00 O2 Sat by Pulse Oximetry (%) 95 06/13/18 09:00 GENERAL: Intubated and sedated EYES: PERRL, (+) sclera icteric. LUNGS: (+) ET tube Coarse breath sounds and crackles HEART: Tachycardic with irregularly irregular rhythm ABDOMEN: Soft, not distended, normoactive bowel sounds. EXTREMITIES: Chronic venous stasis with pedal edema NEUROLOGICAL: intubated and sedated SKIN: Warm, dry, normal turgor, no rashes or lesions noted. Laboratory Results 06/13/18 05:00 06/13/18 05:00 ASSESSMENT/PLAN: Patient is an 82 year old female who presented with shortness of breath and abdominal pain and was found to be in Severe sepsis. Imaging and labs done and revealed ascending cholangitis. Patient was planned to have IR Guided cholecystostomy but was found to have severe thrombocytopenia. We were consulted for further monitoring and management. Problem List: Abdominal pain Acute cholecystitis Thrombocytopenia in the setting of Anticoagulation Shortness of breath Anal cancer s/p chemo radiation A fib with RVR on eliquis Diastolic CHF shortness of breath chronic interstitial lung disease on home o2 PRN Plan: -Differential Diagnosis and risk factors for thrombocytopenia may include but not limited to HIT, Medication side effects, Infections and CHF exacerbation. -Patient s/p IR guided cholecystostomy. However, patient was intubated and family is now discussing goals of care. Until a decision has been made, continue to transfuse monodonor platelets and recommend platelets > 50 and INR < 1.5. -continue to trend CBC for platelet count -continue to hold eliquis in the setting of thrombocytopenia -rest of management per primary medical team
--- NOTE | 2018-06-13 15:18 | PN ---
Progress Note, Physician History of Present Illness: family wants compassionate weaning - Current Medication List Current Medications: Active Medications Albuterol/Ipratropium (Duoneb -) 1 amp NEB Q6H PRN PRN Reason: SHORTNESS OF BREATH Chlorhexidine Gluconate (Hibiclens For Decolonization -) 1 applic TP HS JAKUB Last Admin: 06/12/18 21:15 Dose: 1 applic Digoxin (Lanoxin Injection -) 0.25 mg IVPUSH Q6H-IV JAKUB Last Admin: 06/13/18 08:54 Dose: 0.25 mg Hydrocortisone Sodium Succinate (Solu-Cortef -) 50 mg IVPB Q6H-IV JAKUB Last Admin: 06/13/18 09:13 Dose: 50 mg Imipenem/Cilastatin Sodium 500 (mg/ Sodium Chloride) 100 mls @ 100 mls/hr IVPB BID JAKUB; Protocol Last Admin: 06/13/18 10:02 Dose: 100 mls/hr Norepinephrine Bitartrate 8, (000 mcg/ Dextrose) 500 mls @ 18.75 mls/hr IV TITR JAKUB; Protocol Last Admin: 06/13/18 06:48 Dose: 26 mcg/min, 97.5 mls/hr Famotidine/Sodium Chloride (Pepcid 20 Mg Premixed Ivpb -) 20 mg in 50 mls @ 100 mls/hr IVPB DAILY JAKUB Last Admin: 06/13/18 09:16 Dose: 100 mls/hr Metronidazole (Flagyl 500mg Premixed Ivpb -) 500 mg in 100 mls @ 100 mls/hr IVPB Q8H-IV JAKBU Last Admin: 06/13/18 09:26 Dose: 100 mls/hr Midazolam HCl 100 mg/ Sodium (Chloride) 100 mls @ 1 mls/hr IVPB TITR JAKUB; Protocol Last Titration: 06/12/18 18:39 Dose: 2 mg/hr, 2 mls/hr Vasopressin 50 units/ Sodium (Chloride) 100 mls @ 4.8 mls/hr IVPB ASDIR JAKUB; Protocol Last Titration: 06/13/18 07:10 Dose: 6 units/hr, 12 mls/hr Sodium Bicarbonate 150 meq/ (Dextrose) 1,150 mls @ 100 mls/hr IV Q11H JAKUB Last Admin: 06/13/18 09:16 Dose: 100 mls/hr Mupirocin (Bactroban Ointment (For Decolonization) -) 1 applic NS BID JAKUB Stop: 06/16/18 21:59 Last Admin: 06/13/18 09:25 Dose: 1 applic - Objective Vital Signs: Vital Signs Temperature 98.7 F 06/13/18 12:00 Pulse Rate 120 H 06/13/18 14:00 Respiratory Rate 20 06/13/18 14:24 Blood Pressure 113/64 06/13/18 14:00 O2 Sat by Pulse Oximetry (%) 95 06/13/18 09:00 Labs: CBC, BMP 06/13/18 05:00 06/13/18 05:00 INR, PTT INR 3.27 (0.83-1.09) H 06/13/18 08:48 Fibrinogen 397.0 mg/dL (238-498) 06/12/18 06:30 Problem List - Problems (1) Severe sepsis Code(s): A41.9 - SEPSIS, UNSPECIFIED ORGANISM; R65.20 - SEVERE SEPSIS WITHOUT SEPTIC SHOCK (2) Atrial fibrillation Code(s): I48.91 - UNSPECIFIED ATRIAL FIBRILLATION Qualifiers: Atrial fibrillation type: unspecified Qualified Code(s): I48.91 - Unspecified atrial fibrillation (3) CHF (congestive heart failure) Code(s): I50.9 - HEART FAILURE, UNSPECIFIED (4) Thrombocytopenia Code(s): D69.6 - THROMBOCYTOPENIA, UNSPECIFIED (5) Acute renal disease Code(s): N28.9 - DISORDER OF KIDNEY AND URETER, UNSPECIFIED (6) Elevated LFTs Code(s): R94.5 - ABNORMAL RESULTS OF LIVER FUNCTION STUDIES (7) Supratherapeutic INR Code(s): R79.1 - ABNORMAL COAGULATION PROFILE Assessment/Plan cc time 35 min
[2018-06-13] MEDS ORDERED: LORazepam 2 MG/ML SDV VIAL IVPUSH PRN (15:38)
[2018-06-13] MEDS ORDERED: ACETAMINOPHEN 1000 MG/100 ML VIAL (NON FORMULARY) IVPB PRN (15:39)
[2018-06-13] MEDS ORDERED: MORPHINE SULFATE 2 MG/ML VIAL IVPUSH ONE (15:40)
[2018-06-13] MEDS ORDERED: ACETAMINOPHEN 650 MG SUPP.RECT PR PRN (15:45)
[2018-06-13] MEDS ORDERED: MORPHINE 100 MG in SODIUM CHLORIDE 98 ML IVPB SCH (15:45)
--- NOTE | 2018-06-13 15:56 | PN ---
Progress Note (short form) - Note Progress Note: Patient seen Events noted Family in gage at bedside . On pressors- maximally Intubated and to be terminally weaned Very Sad outcome .
--- NOTE | 2018-06-13 15:58 | PN ---
Progress Note (short form) - Note Progress Note: ICU discussed with family this AM that patient has poor prognosis and deteriorating. Patient intubated, on versed drip, max vasopressin, levophed drips and in AM requiring digoxin for tachycardia, metabolic derangements requiring sodium bicarb gtt. Per patient's desires and health proxy, patient was DNR/DNI and would only want intubation for temporary measures. Jimena (palliative care nurse) involved in case. Discussed compassionate weaning with family/health proxy. They desire compassionate extubation. Comfort measures were explained to the family at bedside including morphine, tylenol, oxygen, ativan. Family expresses understanding. 4pm extubated discontinued all medications. Nasal oxygen at 2L, Tylenol PRN, Ativan PRN and Morphine. Patient made comfortable. Family members at beside. 6:21pm asystole noted on monitor, no carotid or peripheral pulses, no heart sounds, no breath sounds or chest rise, pupils fixed and dilated, no gag reflex , no corneal reflex. Patient pronounced at 6:21pm, family at bedside. PCP informed. Organ donor notified by RN.
[2018-06-13 16:13] VITALS: BP 109/62; PULSE 106; TEMP 98.8
--- NOTE | 2018-06-14 19:18 | DS ---
Physical Examination Vital Signs: Vital Signs Temperature 98.8 F 06/13/18 16:00 Pulse Rate 106 H 06/13/18 16:00 Respiratory Rate 22 H 06/13/18 16:00 Blood Pressure 109/62 06/13/18 16:00 O2 Sat by Pulse Oximetry (%) 95 06/13/18 09:00 Labs: CBC, BMP 06/13/18 05:00 06/13/18 05:00 Discharge Summary Reason For Visit: SEVERE SEPSIS Condition: Fair - Instructions Disposition: - Home Medications Comprehensive Discharge Medication List: Ambulatory Orders Alprazolam [Xanax] 0.25 mg PO BID MDD 0.75 10/18/17 Ondansetron [Zofran *Odt*] 8 mg PO Q8H PRN 12/31/17 Megestrol Acetate Oral Susp [Megace Oral Suspension -] 400 mg PO DAILY 30 Days # 1 cup 01/05/18 Furosemide [Lasix -] 20 mg PO DAILY #7 tablet 02/22/18 Albuterol 0.083% Nebulizer Ela [Ventolin 0.083% Nebulizer Soln -] 1 vial NEB Q6H 05/08/18 Docusate Sodium [Colace -] 100 mg PO TID #90 capsule 05/13/18 Metoprolol Tartrate [Lopressor -] 25 mg PO BID #60 tablet 05/16/18 predniSONE [Deltasone -] 20 mg PO TID 06/11/18
== END 2018-06-13 18:21 | disposition expired | DRG 871 ==
LOC: JER 10:53 → JERBED 13:22 → JICU 15:52
PROVIDERS: ADMIT Internal Medicine; ATTEND Internal Medicine
PROC: 0BH17EZ Insertion of Endotracheal Airway into Trachea, Via Natural or Artificial Opening (ICD-10-PCS; principal; 2018-06-12)
PROC: 5A1945Z Respiratory Ventilation, 24-96 Consecutive Hours (ICD-10-PCS; 2018-06-12)
PROC: 0F9430Z Drainage of Gallbladder with Drainage Device, Percutaneous Approach (ICD-10-PCS; 2018-06-12)
PROC: 30233L1 Transfusion of Nonautologous Fresh Plasma into Peripheral Vein, Percutaneous Approach (ICD-10-PCS; 2018-06-12)
PROC: 30233R1 Transfusion of Nonautologous Platelets into Peripheral Vein, Percutaneous Approach (ICD-10-PCS; 2018-06-12)
DX: A41.89 Other specified sepsis (principal); J96.21 Acute and chronic respiratory failure with hypoxia; R65.21 Severe sepsis with septic shock; J18.9 Pneumonia, unspecified organism; I50.33 Acute on chronic diastolic (congestive) heart failure; C21.0 Malignant neoplasm of anus, unspecified; N17.9 Acute kidney failure, unspecified; K81.0 Acute cholecystitis; E87.2 Acidosis; K83.09 Other cholangitis; D68.9 Coagulation defect, unspecified; I48.91 Unspecified atrial fibrillation; J44.9 Chronic obstructive pulmonary disease, unspecified; R00.0 Tachycardia, unspecified; E78.5 Hyperlipidemia, unspecified; M79.7 Fibromyalgia; K57.90 Diverticulosis of intestine, part unspecified, without perforation or abscess without bleeding; R93.89 Abnormal findings on diagnostic imaging of other specified body structures; F41.8 Other specified anxiety disorders; R09.89 Other specified symptoms and signs involving the circulatory and respiratory systems; D69.6 Thrombocytopenia, unspecified; E87.6 Hypokalemia; R07.89 Other chest pain; I11.0 Hypertensive heart disease with heart failure; I95.9 Hypotension, unspecified; E83.51 Hypocalcemia; E11.649 Type 2 diabetes mellitus with hypoglycemia without coma; K75.89 Other specified inflammatory liver diseases; R79.1 Abnormal coagulation profile; Z96.651 Presence of right artificial knee joint; Z99.81 Dependence on supplemental oxygen; Z66 Do not resuscitate
CPT/HCPCS: 31500; 36415; 36430; 36511; 36600; 47490; 71045-TC-FY; 71250-TC; 74176-TC; 76700-TC; 80048; 80053; 80074; 81003; 81015; 82150; 82248; 82272; 82550; 82803; 82962; 83605; 83690; 83735; 83880; 84100; 84484; 85025; 85027; 85362; 85379; 85384; 85610; 85730; 86850; 86900; 86901; 87040; 87070; 87075; 87086; 87205; 87804; 87899; 87902; 93005; 93010; 94002; 99285-25; A4358; C1729; G0480; J7030; P9017; P9034; P9038